=== PATIENT | female | born 1975 | race Caucasian/White ===

== ENCOUNTER 2016-06-13 09:30 | Emergency (ER) | payer MEDICARE, OTHER ==
--- NOTE | 2016-06-13 10:00 | EDM.PDOC ---
ED HPI GENERAL MEDICAL PROBLEM - General Chief Complaint: Behavioral/Psych Stated Complaint: AMBULANCE Time Seen by Provider: 06/13/16 09:39 - History of Present Illness INITIAL COMMENTS - FREE TEXT/NARRATIVE: HISTORY AND PHYSICAL: History of present illness: The patient is a 40-year-old female who is a diabetic and has no provider here locally as she has just moved here from [place] 2 weeks ago and presents via EMS and police escort for suicidal ideation and possible attempted overdose. According to the patient she is completely fine and she only took 2 of her trazodone which she was prescribed by her doctor in [place] so she could go to sleep. She said she didn't sleep much last night and she was tired. She denies any medical complaints such as fever chills cough chest pain shortness of breath abdominal pain vomiting or diarrhea. According to the boyfriend and police reports the patient has been having problems with her estranged and she has been wanting to see her children and was told by her that they did not want to see her and they were not going to come here to see her. According to the boyfriend she has been depressed and angry over the situation and this morning he noted her to have the bottle of trazodone in her hand and trying to consume a bottle. He found multiple pills on the floor and partially chewed and digested pills on the floor. There were no other medications at the scene. The patient will not corroborate the story and says that she does not know why she is here while her boyfriend called the ambulance. According to the boyfriend she specifically stated to him that she was taking the pills to hurt herself. The patient denies this to me but is not very forthcoming with any of her history. Her son is not sure she's been compliant with her diabetic meds Review of systems: As per history of present illness and below otherwise all systems reviewed and negative. Past medical history: As per history of present illness and as reviewed below otherwise noncontributory. Surgical history: As per history of present illness and as reviewed below otherwise noncontributory. Social history: No reported history of drug or alcohol abuse. Family history: As per history of present illness and as reviewed below otherwise noncontributory. Physical exam: General: Well-developed well-nourished female who is nontoxic and is very soft spoken and quiet and not very talkative or verbally corroborative with my exam HEENT: Atraumatic, normocephalic, pupils reactive, negative for conjunctival pallor or scleral icterus, mucous membranes moist, throat clear, neck supple, nontender, trachea midline. Lungs: Clear to auscultation, breath sounds equal bilaterally, chest nontender. Heart: S1S2, regular rhythm in telemetry tachycardic rate on my evaluation, negative for clicks, rubs, or JVD. Abdomen: Soft, nondistended, nontender. Negative for masses or hepatosplenomegaly. Negative for costovertebral tenderness. Pelvis: Stable nontender. Genitourinary: Deferred. Rectal: Deferred. Extremities: Atraumatic, negative for cords or calf pain. Neurovascular unremarkable. No visible evidence of any injuries and full range of motion of all extremities Neuro: Awake, alert, oriented. Cranial nerves II through XII unremarkable. Cerebellum unremarkable. Motor and sensory unremarkable throughout. Exam nonfocal. The patient is exhibiting no signs of tremulousness Psych: Very flat and depressed in fact very soft spoken and not forthcoming with history. Diagnostics: CBC CMP EtOH level UA UCG UDS TSH aspirin and Tylenol levels Accu-Chek Therapeutics: Cipro by mouth 1045: This was discussed with the psychiatrist at [facility], Dr. Fabricio Conley. He accepts the patient for transfer. The case was also discussed with the ER physician at [facility], Dr. Alcantar, who accepts the patient for transfer at 10:[address] Alcantar is aware of the alcohol level and the slight bump in LFTs and I will continue to monitor the other blood work and call him back with any abnormalities. Impression: Suicidal ideation/attempt; symptomatic UTI; positive drug screen for cocaine and marijuana Definitive disposition and diagnosis as appropriate pending reevaluation and review of above. - Related Data Allergies Allergy/AdvReac Type Severity Reaction Status Date / Time No Known Allergies Allergy Verified 07/07/14 15:04 Home Meds: Home Meds traZODone 06/13/16 [History] Social & Family History - Tobacco Use Smoking Status *Q: Former Smoker Years of Tobacco use: 15 - Alcohol Use Days Per Week of Alcohol Use: 0 - Recreational Drug Use Recreational Drug Use: No ED ROS GENERAL - Review of Systems Review Of Systems: ROS reveals no pertinent complaints other than HPI. ED EXAM, GENERAL - Physical Exam Exam: See Below (See dictation) Course - Vital Signs Last Recorded V/S: Last Vital Signs Temp 37.3 C 06/13/16 09:42 Pulse 120 H 06/13/16 10:50 Resp 20 06/13/16 10:50 BP 143/93 H 06/13/16 10:50 Pulse Ox 94 L 06/13/16 10:50 - Orders/Labs/Meds Orders: Active Orders 24 hr Category Date Time Status CULTURE URINE [RM] Stat Lab 06/13/16 11:09 Ordered Ciprofloxacin [Ciprofloxacin HCl] Med 06/13/16 11:09 Once 500 mg PO ONETIME ONE Medication Orders Ciprofloxacin (Ciprofloxacin Hcl) 500 mg PO ONETIME ONE Stop: 06/13/16 11:10 Labs: Laboratory Tests 06/13/16 06/13/16 06/13/16 Range/Units 09:59 10:07 10:07 WBC 7.55 (4.0-11.0) K/uL RBC 4.61 (4.30-5.90) M/uL Hgb 14.3 (12.0-16.0) g/dL Hct 43.3 (36.0-46.0) % MCV 93.9 (80.0-98.0) fL MCH 31.0 (27.0-32.0) pg MCHC 33.0 (31.0-37.0) g/dL RDW Std Deviation 56.5 (28.0-62.0) fl RDW Coeff of Jovan 17 H (11.0-15.0) % Plt Count 98 L (150-400) K/uL MPV 10.10 (7.40-12.00) fL Neut % (Auto) 60.6 (48.0-80.0) % Lymph % (Auto) 29.8 (16.0-40.0) % [place] % (Auto) 8.2 (0.0-15.0) % Eos % (Auto) 1.1 (0.0-7.0) % Baso % (Auto) 0.3 (0.0-1.5) % Neut # 4.6 (1.4-5.7) K/uL Lymph # 2.3 (0.6-2.4) K/uL [place] # 0.6 (0.0-0.8) K/uL Eos # 0.1 (0.0-0.7) K/uL Baso # 0.0 (0.0-0.1) K/uL Nucleated RBC % 0.0 /100WBC Nucleated RBCs # 0 K/uL Sodium 139 (136-146) mmol/L Potassium 4.0 (3.5-5.1) mmol/L Chloride 104 (98-110) mmol/L Carbon Dioxide 21 (21-31) mmol/L BUN 4 L (6.0-23.0) mg/dL Creatinine 0.7 (0.6-1.5) mg/dL Est Cr Clr Drug Dosing 104.93 mL/min Estimated GFR (MDRD) > 60.0 ml/min Glucose 131 H (60-110) mg/dL POC Glucose 135 H (60-110) mg/dL Calcium 8.1 L (8.8-10.8) mg/dL Total Bilirubin 1.9 H (0.1-1.5) mg/dL AST 281 H (5-40) IU/L ALT 140 H (8-54) IU/L Alkaline Phosphatase 138 (40-150) Total Protein 8.1 H (6.0-8.0) g/dL Albumin 3.2 L (3.5-5.0) g/dL Globulin 4.9 H (2.0-3.5) g/dL Albumin/Globulin Ratio 0.7 L (1.3-2.8) TSH 3rd Generation 4.30 (0.47-5.0) uIU/mL Urine Color Urine Appearance Urine pH (5.0-8.0) Ur Specific [place] (1.001-1.035) Urine Protein (NEGATIVE) mg/dL Urine Glucose (UA) (NEGATIVE) mg/dL Urine Ketones (NEGATIVE) mg/dL Urine Occult Blood (NEGATIVE) Urine Nitrite (NEGATIVE) Urine Bilirubin (NEGATIVE) Urine Ictotest Urine Urobilinogen (<2.0) EU/dL Ur Leukocyte Esterase (NEGATIVE) Urine RBC (0-2/HPF) Urine WBC (0-5/HPF) Ur Epithelial Cells (NONE-FEW) Urine Bacteria (NEGATIVE) Urine Mucus (NONE-MOD) Urine HCG, Qual (NEGATIVE) Salicylates < 5.0 (0-20) mg/dL Urine Opiates Screen (NEGATIVE) Ur Oxycodone Screen (NEGATIVE) Urine Methadone Screen (NEGATIVE) Acetaminophen < 3.0 ug/mL Ur Barbiturates Screen (NEGATIVE) Ur Phencyclidine Scrn (NEGATIVE) Ur Amphetamine Screen (NEGATIVE) U Methamphetamines Scrn (NEGATIVE) U Benzodiazepines Scrn (NEGATIVE) U Cocaine Metab Screen (NEGATIVE) U Marijuana (THC) Screen (NEGATIVE) Ethyl Alcohol 77.7 mg/dL 06/13/16 06/13/16 06/13/16 Range/Units 10:43 10:43 10:43 WBC (4.0-11.0) K/uL RBC (4.30-5.90) M/uL Hgb (12.0-16.0) g/dL Hct (36.0-46.0) % MCV (80.0-98.0) fL MCH (27.0-32.0) pg MCHC (31.0-37.0) g/dL RDW Std Deviation (28.0-62.0) fl RDW Coeff of Jovan (11.0-15.0) % Plt Count (150-400) K/uL MPV (7.40-12.00) fL Neut % (Auto) (48.0-80.0) % Lymph % (Auto) (16.0-40.0) % [place] % (Auto) (0.0-15.0) % Eos % (Auto) (0.0-7.0) % Baso % (Auto) (0.0-1.5) % Neut # (1.4-5.7) K/uL Lymph # (0.6-2.4) K/uL [place] # (0.0-0.8) K/uL Eos # (0.0-0.7) K/uL Baso # (0.0-0.1) K/uL Nucleated RBC % /100WBC Nucleated RBCs # K/uL Sodium (136-146) mmol/L Potassium (3.5-5.1) mmol/L Chloride (98-110) mmol/L Carbon Dioxide (21-31) mmol/L BUN (6.0-23.0) mg/dL Creatinine (0.6-1.5) mg/dL Est Cr Clr Drug Dosing mL/min Estimated GFR (MDRD) ml/min Glucose (60-110) mg/dL POC Glucose (60-110) mg/dL Calcium (8.8-10.8) mg/dL Total Bilirubin (0.1-1.5) mg/dL AST (5-40) IU/L ALT (8-54) IU/L Alkaline Phosphatase (40-150) Total Protein (6.0-8.0) g/dL Albumin (3.5-5.0) g/dL Globulin (2.0-3.5) g/dL Albumin/Globulin Ratio (1.3-2.8) TSH 3rd Generation (0.47-5.0) uIU/mL Urine Color YELLOW Urine Appearance SLT CLOUDY Urine pH 6.0 (5.0-8.0) Ur Specific [place] 1.020 (1.001-1.035) Urine Protein NEGATIVE (NEGATIVE) mg/dL Urine Glucose (UA) NEGATIVE (NEGATIVE) mg/dL Urine Ketones NEGATIVE (NEGATIVE) mg/dL Urine Occult Blood NEGATIVE (NEGATIVE) Urine Nitrite POSITIVE H (NEGATIVE) Urine Bilirubin SMALL H (NEGATIVE) Urine Ictotest NEGATIVE Urine Urobilinogen 2.0 H (<2.0) EU/dL Ur Leukocyte Esterase TRACE (NEGATIVE) Urine RBC 1-2 (0-2/HPF) Urine WBC 6-10 (0-5/HPF) Ur Epithelial Cells FEW (NONE-FEW) Urine Bacteria 4+ H (NEGATIVE) Urine Mucus LIGHT (NONE-MOD) Urine HCG, Qual NEGATIVE (NEGATIVE) Salicylates (0-20) mg/dL Urine Opiates Screen NEGATIVE (NEGATIVE) Ur Oxycodone Screen NEGATIVE (NEGATIVE) Urine Methadone Screen NEGATIVE (NEGATIVE) Acetaminophen ug/mL Ur Barbiturates Screen NEGATIVE (NEGATIVE) Ur Phencyclidine Scrn NEGATIVE (NEGATIVE) Ur Amphetamine Screen NEGATIVE (NEGATIVE) U Methamphetamines Scrn NEGATIVE (NEGATIVE) U Benzodiazepines Scrn NEGATIVE (NEGATIVE) U Cocaine Metab Screen POSITIVE (NEGATIVE) U Marijuana (THC) Screen POSITIVE (NEGATIVE) Ethyl Alcohol mg/dL Meds: Medications Generic Name Dose Route Start Last Admin Trade Name Freq PRN Reason Stop Dose Admin Ciprofloxacin 500 mg 06/13/16 11:09 Ciprofloxacin Hcl PO 06/13/16 11:10 ONETIME ONE Departure - Departure Time of Disposition: 11:10 Disposition: DC/Tfer to Psych Hosp/Unit 65 Condition: good Clinical Impression: Suicidal ideation, Suicide attempt, Drug use, Alcohol use UTI (urinary tract infection) Qualifiers: Urinary tract infection type: site unspecified Hematuria presence: without hematuria Qualified Code(s): N39.0 - Urinary tract infection, site not specified Forms: ED Department Discharge - My Orders Last 24 Hours: My Active Orders 06/13/16 11:09 CULTURE URINE [RM] Stat Ciprofloxacin [Ciprofloxacin HCl] 500 mg PO ONETIME ONE - Assessment/Plan Last 24 Hours: My Active Orders 06/13/16 11:09 CULTURE URINE [RM] Stat Ciprofloxacin [Ciprofloxacin HCl] 500 mg PO ONETIME ONE
[2016-06-13 10:44] LABS: CHLORIDE,CL 104 mmol/L (98-110); SODIUM,NA 139 mmol/L (136-146)
[2016-06-13 10:55] LABS: ACETAMINOPHEN < 3.0 ug/mL
[2016-06-13 11:03] VITALS: BP 143/93
[2016-06-13] MEDS ORDERED: Ciprofloxacin 500 MG Tab PO ONE (11:09)
== END 2016-06-13 11:22 ==
LOC: MW.ED 09:30
DX: R45.851 Suicidal ideations (principal); N39.0 Urinary tract infection, site not specified; F19.90 Other psychoactive substance use, unspecified, uncomplicated; Z87.891 Personal history of nicotine dependence; Z79.899 Other long term (current) drug therapy
CPT/HCPCS: 36415; 80053; 80305; 81001; 81025; 82962; 84443; 85025; 87086; 87088; 87186; 99285; A9270; G0480

== ENCOUNTER → 2016-06-22 | Outpatient (CLI) | payer MEDICARE, OTHER | LOC: MW.CHORTHO 13:27 | PROVIDERS: ATTEND Orthopaedic Surgery | DX: M25.561 Pain in right knee (principal); M25.562 Pain in left knee; Z53.9 Procedure and treatment not carried out, unspecified reason ==

== ENCOUNTER → 2016-07-08 | Outpatient (CLI) | payer MEDICARE, OTHER ==
[2016-07-08 12:58] LABS: CHLORIDE,CL 102 mmol/L (98-110); SODIUM,NA 137 mmol/L (136-146)
== END ==
LOC: MERGE 12:10 → MW.CHFP 12:10
PROVIDERS: ATTEND Family Medicine
DX: E11.9 Type 2 diabetes mellitus without complications (principal); B19.20 Unspecified viral hepatitis C without hepatic coma; R82.90 Unspecified abnormal findings in urine; F31.81 Bipolar II disorder
CPT/HCPCS: 36415; 80053; 80061; 81003; 83036; 84443; 85027; 85610; 87086; 87088; 87186; 87522; 87902; 99205

== ENCOUNTER → 2016-07-14 | Outpatient (CLI) | payer OTHER, MEDICARE ==
[2016-07-24 16:04] LABS: HPV 16 Not Detected (NOTDET); HPV 18 Not Detected (NOTDET)
== END ==
LOC: MW.CHOBGYN 13:52
PROVIDERS: ATTEND Nurse Practitioner Women's Health
DX: Z12.4 Encounter for screening for malignant neoplasm of cervix (principal)
CPT/HCPCS: 87624; G0145

== ENCOUNTER → 2016-07-20 | Outpatient (CLI) | payer MEDICARE, OTHER | LOC: MW.CHFP 07-15 08:00 | PROVIDERS: ATTEND Family Medicine | DX: Z31.69 Encounter for other general counseling and advice on procreation (principal) | CPT/HCPCS: 99204 ==

== ENCOUNTER 2016-10-25 17:42 | Emergency (ER) | payer MEDICARE, OTHER ==
[2016-10-25] MEDS ORDERED: Sodium Chloride 0.9% 1,000 ML IV ONE (19:23)
[2016-10-25] MEDS ORDERED: Pantoprazole 40 MG Vial IVPUSH ONE (19:23)
[2016-10-25] MEDS ORDERED: Ketorolac 30 MG/ML SDV IVPUSH ONE (19:23)
[2016-10-25] MEDS ORDERED: Sodium Chloride 0.9% 2.5 ML Syringe FLUSH PRN (19:23)
[2016-10-25] MEDS ORDERED: Sodium Chloride 0.9% 10 ML Syringe FLUSH PRN (19:23)
[2016-10-25] MEDS ORDERED: Ondansetron 4 MG/2 ML SDV IVPUSH ONE (19:23)
--- NOTE | 2016-10-25 19:30 | EDM.PDOC ---
ED HPI GENERAL MEDICAL PROBLEM - General Chief Complaint: Headache Stated Complaint: HEADACHE/ABDOMINAL PAIN Time Seen by Provider: 10/25/16 19:16 - History of Present Illness INITIAL COMMENTS - FREE TEXT/NARRATIVE: HISTORY AND PHYSICAL: History of present illness: The patient is a 41-year-old female who states that she has a history of low platelets and is currently following and our internal medicine clinic and is scheduled to see one of our oncologists and presents with complaints of a right temporal headache that started this morning. The patient states she has a normal day yesterday with the exception that for the last 4-5 days she's had a lot of upper abdominal pain and "acid reflux" and hasn't felt well from that perspective and after she woke up she was having a normal morning and then she started having the bitemporal headache. She is vague about describing the character but says it didn't radiate and it wasn't associated with any visual changes neuro changes nausea or vomiting. She decided to go back to bed and go to sleep and she was able to sleep without difficulty and then woke again and still had the headache. The patient also tells me that last evening she slept without any difficulty and did not wake up with a headache. She currently says the pain is throbbing and there is no neck pain or back pain no chest pain or shortness of breath and no fever. She says she's had chills on and off. She has only taken one dose of Tylenol and that was one hour before coming here. She has had headaches before to my history but she is vague about describing them. As far as the abdominal pain is mostly diffuse and in the upper areas and its acid-like feeling she's had no diarrhea or black or bloody stools. The patient had no urinary complaints no recent trauma and she's had a bilateral tubal ligation. According to the computer she had a scheduled counter today with the oncology group but she says that she did not have an appointment today. She is unclear of why that shows up on her computer. I question the patient on her very tacky mucosa and she says she has not had very much to drink today and she normally doesn't hydrate very well. Patient does have a history of hepatitis C and has a history of psychiatric issues. Patient is currently on her period. Patient has a history of a cholecystectomy Review of systems: As per history of present illness and below otherwise all systems reviewed and negative. Past medical history: As per history of present illness and as reviewed below otherwise noncontributory. Surgical history: As per history of present illness and as reviewed below otherwise noncontributory. Social history: No reported history of drug or alcohol abuse. Family history: As per history of present illness and as reviewed below otherwise noncontributory. Physical exam: Gen.: Well-developed well-nourished female who is nontoxic and non-photophobic. Vital signs of an reviewed by me. HEENT: Atraumatic, normocephalic, pupils reactive, negative for conjunctival pallor or scleral icterus, mucous membranes very tacky, throat clear, neck supple, nontender, trachea midline. There is no evidence of any sinus tenderness cervical adenopathy or nuchal rigidity and TMs are dulled bilaterally. There is no temporal artery tenderness and no discrete tenderness at the TMJ or the temporal scalp area. Lungs: Clear to auscultation, breath sounds equal bilaterally, chest nontender. Heart: S1S2, regular, negative for clicks, rubs, or JVD. Abdomen: Soft, nondistended, nontender. Negative for masses or hepatosplenomegaly. Negative for costovertebral tenderness. Pelvis: Stable nontender. Genitourinary: Deferred. Rectal: Deferred. Extremities: Atraumatic, negative for cords or calf pain. Neurovascular unremarkable. Neuro: Awake, alert, oriented. Cranial nerves II through XII unremarkable. Cerebellum unremarkable. Motor and sensory unremarkable throughout. Exam nonfocal. Diagnostics: CBC CMP INR EtOH level amylase lipase CT scan of the head abdomen and pelvis UA UDS urine culture Therapeutics: IV fluids Toradol Zofran and Protonix Rocephin Please note that I did see this patient in May of this year for an overdose for which she was transferred for psychiatric care and currently she is following with one of our providers for outpatient care. Patient does have a history per the computer of alcohol and drug use. Her blood work that was performed recently from the clinic, just several days ago, indicates a platelet count of 71 and elevated LFTs. I will compare that to today's numbers. Please note that today's liver function tests are actually improved from the ones that were done just several days ago. The platelet count today is 68 which is not significantly different from the 71 several days ago. I will report these changes and improvements to the patient. We are currently awaiting CT scan results. All testing results were discussed with the patient and at bedside. She overall feels much improved. She said she might have gotten dehydrated as she did not drink much fluids all day today except one cup of water at breakfast. Although the CT scan report did show some fluid around the head of the pancreas the patient is not tender in that area more than she is tender in any other area. She is aware that she should maintain a clear liquid diet and follow up with her provider. She is aware of reasons to return to the ED and thing she should watch out for. She is aware that she has a UTI and that I will prescribe antibiotics. We will give her a dose of Rocephin here and prescribed antibiotics for home. I've also stressed need to contact her provider in the clinic as well as continue with her plan to follow-up with hematology for her thrombocytopenia. She is aware that her spleen is enlarged on the CAT scan and cautions for that. Impression: Headache and abdominal pain with a history of thrombocytopenia and History of hepatitis C, improved stable Definitive disposition and diagnosis as appropriate pending reevaluation and review of above. Headache Pain Score (Numeric/FACES): 8 - Related Data Allergies Allergy/AdvReac Type Severity Reaction Status Date / Time codeine Allergy Itching Verified 10/25/16 18:04 Home Meds: Home Meds traZODone 06/13/16 [History] Insulin Aspart [NovoLOG] 10/25/16 [History] Insulin Detemir [Levemir Flextouch] 10/25/16 [History] OXcarbazepine [Oxcarbazepine] 10/25/16 [History] QUEtiapine Fumarate [Seroquel Xr] 300 mg PO 10/25/16 [History] clonazePAM [Clonazepam] 10/25/16 [History] Past Medical History Endocrine/Metabolic History: Reports: Diabetes, Type II Hematologic History: Reports: Other (See Below) Other Hematologic History: Pt reports low white blood cell and platelet count. - Infectious Disease History Infectious Disease History: Reports: Chicken Pox, Hepatitis C - Past Surgical History GI Surgical History: Reports: Cholecystectomy Musculoskeletal Surgical History: Reports: Other (See Below) Social & Family History - Family History Family Medical History: Noncontributory - Tobacco Use Smoking Status *Q: Former Smoker Years of Tobacco use: 15 Packs/Tins Daily: 10 Used Tobacco, but Quit: Yes Month Tobacco Last Used: August - Caffeine Use Caffeine Use: Reports: Coffee - Alcohol Use Days Per Week of Alcohol Use: 0 - Recreational Drug Use Recreational Drug Use: No ED ROS GENERAL - Review of Systems Review Of Systems: ROS reveals no pertinent complaints other than HPI. ED EXAM, GENERAL - Physical Exam Exam: See Below (See dictation) Course - Vital Signs Last Recorded V/S: Last Vital Signs Temp 36.2 C 10/25/16 21:20 Pulse 68 10/25/16 21:20 Resp 16 10/25/16 21:20 BP 92/62 10/25/16 21:20 Pulse Ox 98 10/25/16 21:20 - Orders/Labs/Meds Orders: Active Orders 24 hr Category Date Time Status Abdomen Pelvis w Cont [CT] Stat Exams 10/25/16 19:27 Taken Abdomen Pelvis wo Cont [CT] Stat Exams 10/25/16 19:23 Stop Req Head wo Cont [CT] Stat Exams 10/25/16 19:23 Taken CULTURE URINE [RM] Stat Lab 10/25/16 19:35 Received Sodium Chloride 0.9% [Saline Flush] Med 10/25/16 19:23 Active 10 ml FLUSH ASDIRECTED PRN Sodium Chloride 0.9% [Saline Flush] Med 10/25/16 19:23 Active 2.5 ml FLUSH ASDIRECTED PRN Saline Lock Insert [OM.PC] Stat Oth 10/25/16 19:23 Ordered Medication Orders Sodium Chloride (Saline Flush) 10 ml FLUSH ASDIRECTED PRN PRN Reason: Keep Vein Open Sodium Chloride (Saline Flush) 2.5 ml FLUSH ASDIRECTED PRN PRN Reason: Keep Vein Open Labs: Laboratory Tests 10/25/16 10/25/16 10/25/16 Range/Units 19:35 19:35 19:50 WBC 3.30 L (4.0-11.0) K/uL RBC 3.95 L (4.30-5.90) M/uL Hgb 12.0 (12.0-16.0) g/dL Hct 36.4 (36.0-46.0) % MCV 92.2 (80.0-98.0) fL MCH 30.4 (27.0-32.0) pg MCHC 33.0 (31.0-37.0) g/dL RDW Std Deviation 53.0 (28.0-62.0) fl RDW Coeff of Jovan 16 H (11.0-15.0) % Plt Count 68 L (150-400) K/uL MPV 11.10 (7.40-12.00) fL Neut % (Auto) 48.8 (48.0-80.0) % Lymph % (Auto) 40.0 (16.0-40.0) % Benton % (Auto) 7.6 (0.0-15.0) % Eos % (Auto) 3.3 (0.0-7.0) % Baso % (Auto) 0.3 (0.0-1.5) % Neut # (Auto) 1.6 (1.4-5.7) K/uL Lymph # (Auto) 1.3 (0.6-2.4) K/uL Benton # (Auto) 0.3 (0.0-0.8) K/uL Eos # (Auto) 0.1 (0.0-0.7) K/uL Baso # (Auto) 0.0 (0.0-0.1) K/uL Nucleated RBC % 0.0 /100WBC Nucleated RBCs # 0 K/uL INR (0.86-1.11) Sodium (136-146) mmol/L Potassium (3.5-5.1) mmol/L Chloride (98-110) mmol/L Carbon Dioxide (21-31) mmol/L BUN (6.0-23.0) mg/dL Creatinine (0.6-1.5) mg/dL Est Cr Clr Drug Dosing mL/min Estimated GFR (MDRD) ml/min Glucose (60-110) mg/dL Calcium (8.8-10.8) mg/dL Total Bilirubin (0.1-1.5) mg/dL AST (5-40) IU/L ALT (8-54) IU/L Alkaline Phosphatase (40-150) Total Protein (6.0-8.0) g/dL Albumin (3.5-5.0) g/dL Globulin (2.0-3.5) g/dL Albumin/Globulin Ratio (1.3-2.8) Amylase (10-90) U/L Lipase (7-80) U/L Urine Color YELLOW Urine Appearance SLT CLOUDY Urine pH 6.0 (5.0-8.0) Ur Specific Bronte 1.020 (1.001-1.035) Urine Protein NEGATIVE (NEGATIVE) mg/dL Urine Glucose (UA) NEGATIVE (NEGATIVE) mg/dL Urine Ketones NEGATIVE (NEGATIVE) mg/dL Urine Occult Blood LARGE H (NEGATIVE) Urine Nitrite POSITIVE H (NEGATIVE) Urine Bilirubin MODERATE H (NEGATIVE) Urine Ictotest POSITIVE Urine Urobilinogen 2.0 H (<2.0) EU/dL Ur Leukocyte Esterase NEGATIVE (NEGATIVE) Urine RBC 10-15 (0-2/HPF) Urine WBC 2-3 (0-5/HPF) Ur Epithelial Cells FEW (NONE-FEW) Urine Bacteria 3+ H (NEGATIVE) Urine Opiates Screen NEGATIVE (NEGATIVE) Ur Oxycodone Screen NEGATIVE (NEGATIVE) Urine Methadone Screen NEGATIVE (NEGATIVE) Ur Barbiturates Screen NEGATIVE (NEGATIVE) Ur Phencyclidine Scrn NEGATIVE (NEGATIVE) Ur Amphetamine Screen NEGATIVE (NEGATIVE) U Methamphetamines Scrn NEGATIVE (NEGATIVE) U Benzodiazepines Scrn POSITIVE (NEGATIVE) U Cocaine Metab Screen NEGATIVE (NEGATIVE) U Marijuana (THC) Screen NEGATIVE (NEGATIVE) Ethyl Alcohol mg/dL 10/25/16 10/25/16 Range/Units 19:50 19:50 WBC (4.0-11.0) K/uL RBC (4.30-5.90) M/uL Hgb (12.0-16.0) g/dL Hct (36.0-46.0) % MCV (80.0-98.0) fL MCH (27.0-32.0) pg MCHC (31.0-37.0) g/dL RDW Std Deviation (28.0-62.0) fl RDW Coeff of Jovan (11.0-15.0) % Plt Count (150-400) K/uL MPV (7.40-12.00) fL Neut % (Auto) (48.0-80.0) % Lymph % (Auto) (16.0-40.0) % Benton % (Auto) (0.0-15.0) % Eos % (Auto) (0.0-7.0) % Baso % (Auto) (0.0-1.5) % Neut # (Auto) (1.4-5.7) K/uL Lymph # (Auto) (0.6-2.4) K/uL Benton # (Auto) (0.0-0.8) K/uL Eos # (Auto) (0.0-0.7) K/uL Baso # (Auto) (0.0-0.1) K/uL Nucleated RBC % /100WBC Nucleated RBCs # K/uL INR 1.28 H (0.86-1.11) Sodium 138 (136-146) mmol/L Potassium 4.1 (3.5-5.1) mmol/L Chloride 110 (98-110) mmol/L Carbon Dioxide 24 (21-31) mmol/L BUN 11 (6.0-23.0) mg/dL Creatinine 0.8 (0.6-1.5) mg/dL Est Cr Clr Drug Dosing 90.90 mL/min Estimated GFR (MDRD) > 60.0 ml/min Glucose 122 H (60-110) mg/dL Calcium 7.6 L (8.8-10.8) mg/dL Total Bilirubin 1.2 (0.1-1.5) mg/dL AST 159 H (5-40) IU/L ALT 120 H (8-54) IU/L Alkaline Phosphatase 174 H (40-150) Total Protein 6.7 (6.0-8.0) g/dL Albumin 2.6 L (3.5-5.0) g/dL Globulin 4.1 H (2.0-3.5) g/dL Albumin/Globulin Ratio 0.6 L (1.3-2.8) Amylase 96 H (10-90) U/L Lipase 44 (7-80) U/L Urine Color Urine Appearance Urine pH (5.0-8.0) Ur Specific Bronte (1.001-1.035) Urine Protein (NEGATIVE) mg/dL Urine Glucose (UA) (NEGATIVE) mg/dL Urine Ketones (NEGATIVE) mg/dL Urine Occult Blood (NEGATIVE) Urine Nitrite (NEGATIVE) Urine Bilirubin (NEGATIVE) Urine Ictotest Urine Urobilinogen (<2.0) EU/dL Ur Leukocyte Esterase (NEGATIVE) Urine RBC (0-2/HPF) Urine WBC (0-5/HPF) Ur Epithelial Cells (NONE-FEW) Urine Bacteria (NEGATIVE) Urine Opiates Screen (NEGATIVE) Ur Oxycodone Screen (NEGATIVE) Urine Methadone Screen (NEGATIVE) Ur Barbiturates Screen (NEGATIVE) Ur Phencyclidine Scrn (NEGATIVE) Ur Amphetamine Screen (NEGATIVE) U Methamphetamines Scrn (NEGATIVE) U Benzodiazepines Scrn (NEGATIVE) U Cocaine Metab Screen (NEGATIVE) U Marijuana (THC) Screen (NEGATIVE) Ethyl Alcohol < 10.0 mg/dL Meds: Medications Generic Name Dose Route Start Last Admin Trade Name Freq PRN Reason Stop Dose Admin Sodium Chloride 10 ml 10/25/16 19:23 Saline Flush FLUSH ASDIRECTED PRN Keep Vein Open Sodium Chloride 2.5 ml 10/25/16 19:23 Saline Flush FLUSH ASDIRECTED PRN Keep Vein Open Discontinued Medications Generic Name Dose Route Start Last Admin Trade Name Freq PRN Reason Stop Dose Admin Sodium Chloride 1,000 mls @ 999 mls/hr 10/25/16 19:23 10/25/16 20:01 Normal Saline IV 10/25/16 20:23 999 mls/hr STAT ONE Administration Iopamidol 100 ml 10/25/16 19:58 10/25/16 19:59 Isovue Multipack-370 (76%) IVPUSH 10/25/16 19:59 100 ml ONETIME STA Administration Ketorolac Tromethamine 30 mg 10/25/16 19:23 10/25/16 20:01 Toradol IVPUSH 10/25/16 19:24 30 mg ONETIME ONE Administration Ondansetron HCl 4 mg 10/25/16 19:23 10/25/16 20:01 Zofran IVPUSH 10/25/16 19:24 4 mg ONETIME ONE Administration Pantoprazole Sodium 40 mg 10/25/16 19:23 10/25/16 20:01 Protonix Iv IVPUSH 10/25/16 19:24 40 mg .BOLUS ONE Administration Departure - Departure Time of Disposition: 22:25 Disposition: Home, Self-Care 01 Condition: Good Clinical Impression: Headache Qualifiers: Headache type: unspecified Headache chronicity pattern: acute headache Intractability: not intractable Qualified Code(s): R51 - Headache Abdominal pain Qualifiers: Abdominal location: generalized Qualified Code(s): R10.84 - Generalized abdominal pain UTI (urinary tract infection) Qualifiers: Urinary tract infection type: site unspecified Hematuria presence: without hematuria Qualified Code(s): N39.0 - Urinary tract infection, site not specified - Discharge Information Forms: ED Department Discharge Additional Instructions: The following information is given to patients seen in the emergency department who are being discharged to home. This information is to outline your options for follow-up care. We provide all patients seen in our emergency department with a follow-up referral. The need for follow-up, as well as the timing and circumstances, are variable depending upon the specifics of your emergency department visit. If you don't have a primary care physician on staff, we will provide you with a referral. We always advise you to contact your personal physician following an emergency department visit to inform them of the circumstance of the visit and for follow-up with them and/or the need for any referrals to a consulting specialist. The emergency department will also refer you to a specialist when appropriate. This referral assures that you have the opportunity for followup care with a specialist. All of these measure are taken in an effort to provide you with optimal care, which includes your followup. Under all circumstances we always encourage you to contact your private physician who remains a resource for coordinating your care. When calling for followup care, please make the office aware that this follow-up is from your recent emergency room visit. If for any reason you are refused follow-up, please contact the [facility] emergency department at and ask to speak to the emergency department charge nurse. Primary care- [place] [address] Please contact your clinic physician for follow-up in the next few days and keep any appointments are made with hematology. Rest and push hydration as we discussed. Take antibiotics until they are finished. Please eat a clear liquid diet for the next 24 hours and please return to ER as needed and as discussed. Please avoid any rigorous exercise or activities due to your enlarged spleen. - My Orders Last 24 Hours: My Active Orders 10/25/16 19:23 Abdomen Pelvis wo Cont [CT] Stat Head wo Cont [CT] Stat Sodium Chloride 0.9% [Saline Flush] 10 ml FLUSH ASDIRECTED PRN Sodium Chloride 0.9% [Saline Flush] 2.5 ml FLUSH ASDIRECTED PRN Saline Lock Insert [OM.PC] Stat 10/25/16 19:27 Abdomen Pelvis w Cont [CT] Stat 10/25/16 19:35 CULTURE URINE [RM] Stat - Assessment/Plan Last 24 Hours: My Active Orders 10/25/16 19:23 Abdomen Pelvis wo Cont [CT] Stat Head wo Cont [CT] Stat Sodium Chloride 0.9% [Saline Flush] 10 ml FLUSH ASDIRECTED PRN Sodium Chloride 0.9% [Saline Flush] 2.5 ml FLUSH ASDIRECTED PRN Saline Lock Insert [OM.PC] Stat 10/25/16 19:27 Abdomen Pelvis w Cont [CT] Stat 10/25/16 19:35 CULTURE URINE [RM] Stat
[2016-10-25] MEDS ORDERED: Iopamidol 755 MG/ML 500 ML Multipack Bottle IVPUSH STA (19:58)
[2016-10-25 20:25] LABS: CHLORIDE,CL 110 mmol/L (98-110); SODIUM,NA 138 mmol/L (136-146)
[2016-10-25 21:21] VITALS: BP 92/62
[2016-10-25] MEDS ORDERED: cefTRIAXone 1 GM in Premix Bag 1 BAG IV ONE (22:26)
--- NOTE | 2016-10-26 09:42 | CT ---
EXAM DATE: 10/25/16 PATIENT'S AGE: 41 Patient: RICO RINCON Facility: [place], [place] Site . Site : 1975 Study: CT Head -10/25/2016 9:03:46 PM Ordering Physician: Elvin Nelson Final Report: INDICATION: Pain TECHNIQUE: CT head without contrast. COMPARISON: None FINDINGS: CSF spaces: Within normal limits for age. Brain parenchyma: The doll-white differentiation is normal. No sign of mass, hemorrhage, or midline shift. Skull base and calvarium: The visualized paranasal sinuses and mastoid air cells demonstrate no acute or significant findings. The visualized orbits are grossly unremarkable. No skull fractures. IMPRESSION: Unremarkable noncontrast head CT. Dictated by Alfredito Schuster MD @ 10/25/2016 9:44:27 PM Dictated by: Alfredito Schuster MD @ 10/25/2016 21:44:31 (Electronic Signature) Report Signed by Proxy. DENISE
--- NOTE | 2016-10-26 09:43 | CT ---
EXAM DATE: 10/25/16 PATIENT'S AGE: 41 Patient: RICO RINCON Facility: [place], [place] Site . Site : 1975 Study: CT Abdomen/Pelvis -10/25/2016 9:04:10 PM Ordering Physician: Elvin Nelson Final Report: INDICATION: Pain, nausea and vomiting. History of hepatitis-C. TECHNIQUE: CT abdomen and pelvis acquired with IV contrast. COMPARISON: None FINDINGS: Lower chest: Unremarkable. Liver: Unremarkable. Spleen: Splenomegaly. Pancreas: Small amount of fluid noted adjacent to the head of the pancreas extending into the deng hepatis. Correlate with pancreatitis clinically. Gallbladder and bile ducts: Status post cholecystectomy. Kidneys: Unremarkable. Adrenal glands: Unremarkable. GI tract: Diffuse colonic fecal retention. Appendix is normal. Vascular structures: Unremarkable. Lymph nodes: Unremarkable. Miscellaneous: Unremarkable. No free air or significant free fluid. Pelvic Organs: Unremarkable. Bones: Unremarkable for age. IMPRESSION: Small amount of fluid adjacent to the head of the pancreas extending to the deng hepatis. Correlate with pancreatitis clinically. Status post cholecystectomy. Normal appendix. Splenomegaly. Diffuse colonic fecal retention. Findings discussed 10/25/2016 at 9:[address] Oconnor. Dictated by Alfredito Schuster MD @ 10/25/2016 9:53:18 PM Dictated by: Alfredito Schuster MD @ 10/25/2016 21:53:44 (Electronic Signature) Report Signed by Proxy. [facility]
== END 2016-10-25 23:00 | disposition home or self-care (01) ==
LOC: MW.ED 17:42
DX: N39.0 Urinary tract infection, site not specified (principal); R51 Headache; E11.9 Type 2 diabetes mellitus without complications; Z90.49 Acquired absence of other specified parts of digestive tract; Z88.5 Allergy status to narcotic agent; Z79.4 Long term (current) use of insulin; Z87.891 Personal history of nicotine dependence; Z86.2 Personal history of diseases of the blood and blood-forming organs and certain disorders involving the immune mechanism; Z86.19 Personal history of other infectious and parasitic diseases
CPT/HCPCS: 70450; 74177; 80053; 80305; 81001; 82150; 83690; 85025; 85610; 87086; 87088; 87186; 96361; 96374; 96375; 99284; C9113; G0480; J1885; J2405; J7040; Q9967; 99283

== ENCOUNTER 2016-11-08 22:21 | Inpatient (IN) | payer MEDICARE, OTHER ==
[2016-11-08] MEDS ORDERED: Sodium Chloride 0.9% 10 ML Syringe FLUSH PRN (22:35)
[2016-11-08] MEDS ORDERED: Sodium Chloride 0.9% 2.5 ML Syringe FLUSH PRN (22:35)
--- NOTE | 2016-11-08 22:51 | EDM.PDOC ---
[id number]: SEVERE ABDOMINAL PAIN Time Seen by Provider: 11/08/16 22:35 - History of Present Illness INITIAL COMMENTS - FREE TEXT/NARRATIVE: HISTORY AND PHYSICAL: History of present illness: Patient's 41-year-old female presenting concern of abdominal pain over the last 2-3 days this appears to be postprandial and intermittent per patient is become more consistent and constant today with increased abdominal girth and weight gain per patient she has been seen hematology for low platelets and per possible diagnosis of multiple myeloma she did have a bone marrow biopsy and is awaiting follow-up results and consultation regarding this. There's been no fever no chills she equivocates regarding nauseated but no vomiting no diarrhea. Review of systems: As per history of present illness and below otherwise all systems reviewed and negative. Past medical history: As per history of present illness and as reviewed below otherwise noncontributory. Surgical history: As per history of present illness and as reviewed below otherwise noncontributory. Social history: No reported history of drug or alcohol abuse. Family history: As per history of present illness and as reviewed below otherwise noncontributory. Physical exam: HEENT: Atraumatic, normocephalic, pupils reactive, negative for mild conjunctival pallor and sallow complexion noted mucous membranes moist, throat clear, neck supple, nontender, trachea midline. Lungs: Clear to auscultation, breath sounds equal bilaterally, chest nontender. Heart: S1S2, regular, negative for clicks, rubs, or JVD. Abdomen: Soft, nondistended, mild diffuse tenderness no rebound no guarding this is nonlocalized clinical exam is indicative of likely ascites. Negative for masses or hepatosplenomegaly. Negative for costovertebral tenderness. Pelvis: Stable nontender. Genitourinary: Deferred. Rectal: Deferred. Extremities: Atraumatic, negative for cords or calf pain. Neurovascular unremarkable. Neuro: Awake, alert, oriented. Cranial nerves II through XII unremarkable. Cerebellum unremarkable. Motor and sensory unremarkable throughout. Exam nonfocal. Diagnostics: CBC CMPbnp PT/INR hCG amylase/lipase UDS EtOH chest x-ray EKG UA CT abdomen and pelvis Therapeutics: Normal saline at 125 mL an hour Impression: #1 abdominal pain #2 history of thrombocytopenia #3 history of diabetes #4 history of hypertension Definitive disposition and diagnosis as appropriate pending reevaluation and review of above. upper abdominal area Pain Score (Numeric/FACES): 8 - Related Data Allergies Allergy/AdvReac Type Severity Reaction Status Date / Time codeine Allergy Itching Verified 11/08/16 22:27 Home Meds: Home Meds traZODone 100 mg PO BEDTIME 06/13/16 [History] Insulin Aspart [NovoLOG] 9 units SQ BID@0730,1130 10/25/16 [History] Insulin Detemir [Levemir Flextouch] 30 units SQ QAM 10/25/16 [History] OXcarbazepine [Oxcarbazepine] 300 mg PO BID 10/25/16 [History] QUEtiapine Fumarate [Seroquel Xr] 300 mg PO BEDTIME 10/25/16 [History] clonazePAM [Clonazepam] 1 mg PO BID PRN 10/25/16 [History] Insulin Aspart [NovoLOG] 10 unit SUBCUT ACDINNER 11/09/16 [History] Levothyroxine 25 mcg PO ACBREAKFAST 11/09/16 [History] buPROPion [Wellbutrin XL] 150 mg PO DAILY 11/09/16 [History] Past Medical History Endocrine/Metabolic History: Reports: Diabetes, Type II Hematologic History: Reports: Other (See Below) Other Hematologic History: Pt reports low white blood cell and platelet count. - Infectious Disease History Infectious Disease History: Reports: Chicken Pox, Hepatitis C - Past Surgical History GI Surgical History: Reports: Cholecystectomy Musculoskeletal Surgical History: Reports: Other (See Below) Social & Family History - Family History Family Medical History: Noncontributory - Tobacco Use Smoking Status *Q: Former Smoker Years of Tobacco use: 15 Packs/Tins Daily: 10 Used Tobacco, but Quit: Yes Month Tobacco Last Used: August - Caffeine Use Caffeine Use: Reports: Coffee - Alcohol Use Days Per Week of Alcohol Use: 0 - Recreational Drug Use Recreational Drug Use: No ED ROS GENERAL - Review of Systems Review Of Systems: ROS reveals no pertinent complaints other than HPI. ED EXAM, GENERAL - Physical Exam Exam: See Below (See dictation) Course - Vital Signs Last Recorded V/S: Last Vital Signs Temp 36.8 C 11/09/16 12:01 Pulse 90 11/09/16 12:01 Resp 20 11/09/16 12:01 BP 104/59 L 11/09/16 12:01 Pulse Ox 92 L 11/09/16 12:01 - Orders/Labs/Meds Orders: Active Orders 24 hr Category Date Time Status CULTURE URINE [RM] Stat Lab 11/09/16 00:06 Received Sodium Chloride 0.9% [Saline Flush] Med 11/08/16 22:35 Active 10 ml FLUSH ASDIRECTED PRN Sodium Chloride 0.9% [Saline Flush] Med 11/08/16 22:35 Active 2.5 ml FLUSH ASDIRECTED PRN Saline Lock Insert [OM.PC] Stat Oth 11/08/16 22:35 Ordered Medication Orders Hydromorphone HCl (Dilaudid) 0.5 mg IVPUSH Q3H PRN PRN Reason: Pain Last Admin: 11/09/16 14:33 Dose: 0.5 mg Admin: 11/09/16 11:01 Dose: 0.5 mg Ceftriaxone Sodium/Dextrose 1 (gm/ Premix) 50 mls @ 100 mls/hr IV Q24H JOYCE Sodium Chloride (Normal Saline) 1,000 mls @ 125 mls/hr IV ASDIRECTED JOYCE Last Admin: 11/09/16 10:10 Dose: 125 mls/hr Infusion: 11/09/16 09:55 Dose: 125 mls/hr Admin: 11/09/16 01:55 Dose: 125 mls/hr Pantoprazole Sodium 40 mg/ (Sodium Chloride) 10 mls @ 300 mls/hr IVPUSH Q24H JOYCE Last Admin: 11/09/16 09:33 Dose: 300 mls/hr Insulin Aspart (Novolog) 0 unit SUBCUT Q6H JOYCE PRN Reason: Protocol Last Admin: 11/09/16 12:06 Dose: Lorazepam (Ativan) 1 mg IVPUSH Q12H PRN PRN Reason: Anxiety Ondansetron HCl (Zofran) 8 mg IVPUSH Q8H PRN PRN Reason: Nausea/Vomiting Last Admin: 11/09/16 08:45 Dose: 8 mg Sodium Chloride (Saline Flush) 10 ml FLUSH ASDIRECTED PRN PRN Reason: Keep Vein Open Sodium Chloride (Saline Flush) 2.5 ml FLUSH ASDIRECTED PRN PRN Reason: Keep Vein Open Labs: Laboratory Tests 08/14/17 08/14/17 08/14/17 Range/Units 22:36 22:36 22:36 WBC 5.23 (4.0-11.0) K/uL RBC 4.48 (4.30-5.90) M/uL Hgb 13.8 (12.0-16.0) g/dL Hct 40.7 (36.0-46.0) % MCV 90.8 (80.0-98.0) fL MCH 30.8 (27.0-32.0) pg MCHC 33.9 (31.0-37.0) g/dL RDW Std Deviation 55.2 (28.0-62.0) fl RDW Coeff of Jovan 17 H (11.0-15.0) % Plt Count 84 L (150-400) K/uL MPV 11.00 (7.40-12.00) fL Neut % (Auto) 46.4 L (48.0-80.0) % Lymph % (Auto) 39.2 (16.0-40.0) % Comal % (Auto) 9.2 (0.0-15.0) % Eos % (Auto) 4.4 (0.0-7.0) % Baso % (Auto) 0.8 (0.0-1.5) % Neut # (Auto) 2.4 (1.4-5.7) K/uL Lymph # (Auto) 2.1 (0.6-2.4) K/uL Comal # (Auto) 0.5 (0.0-0.8) K/uL Eos # (Auto) 0.2 (0.0-0.7) K/uL Baso # (Auto) 0.0 (0.0-0.1) K/uL Nucleated RBC % 0.0 /100WBC Nucleated RBCs # 0 K/uL INR 1.17 H (0.86-1.11) Sodium 137 (136-146) mmol/L Potassium 4.3 (3.5-5.1) mmol/L Chloride 106 (98-110) mmol/L Carbon Dioxide 25 (21-31) mmol/L BUN 14 (6.0-23.0) mg/dL Creatinine 0.8 (0.6-1.5) mg/dL Est Cr Clr Drug Dosing 90.66 mL/min Estimated GFR (MDRD) > 60.0 ml/min Glucose 129 H (60-110) mg/dL Calcium 8.6 L (8.8-10.8) mg/dL Total Bilirubin 1.5 (0.1-1.5) mg/dL AST 167 H (5-40) IU/L ALT 120 H (8-54) IU/L Alkaline Phosphatase 204 H (40-150) B-Natriuretic Peptide (<100) PG/ML Total Protein 8.0 (6.0-8.0) g/dL Albumin 3.2 L (3.5-5.0) g/dL Globulin 4.8 H (2.0-3.5) g/dL Albumin/Globulin Ratio 0.7 L (1.3-2.8) Amylase 103 H (10-90) U/L Lipase 34 (7-80) U/L Urine Color Urine Appearance Urine pH (5.0-8.0) Ur Specific Sherman (1.001-1.035) Urine Protein (NEGATIVE) mg/dL Urine Glucose (UA) (NEGATIVE) mg/dL Urine Ketones (NEGATIVE) mg/dL Urine Occult Blood (NEGATIVE) Urine Nitrite (NEGATIVE) Urine Bilirubin (NEGATIVE) Urine Ictotest Urine Urobilinogen (<2.0) EU/dL Ur Leukocyte Esterase (NEGATIVE) Urine RBC (0-2/HPF) Urine WBC (0-5/HPF) Ur Epithelial Cells (NONE-FEW) Urine Bacteria (NEGATIVE) Urine HCG, Qual (NEGATIVE) Urine Opiates Screen (NEGATIVE) Ur Oxycodone Screen (NEGATIVE) Urine Methadone Screen (NEGATIVE) Ur Barbiturates Screen (NEGATIVE) Ur Phencyclidine Scrn (NEGATIVE) Ur Amphetamine Screen (NEGATIVE) U Methamphetamines Scrn (NEGATIVE) U Benzodiazepines Scrn (NEGATIVE) U Cocaine Metab Screen (NEGATIVE) U Marijuana (THC) Screen (NEGATIVE) Ethyl Alcohol < 10.0 mg/dL 11/08/16 11/08/16 11/08/16 Range/Units 22:36 22:39 22:39 WBC (4.0-11.0) K/uL RBC (4.30-5.90) M/uL Hgb (12.0-16.0) g/dL Hct (36.0-46.0) % MCV (80.0-98.0) fL MCH (27.0-32.0) pg MCHC (31.0-37.0) g/dL RDW Std Deviation (28.0-62.0) fl RDW Coeff of Jovan (11.0-15.0) % Plt Count (150-400) K/uL MPV (7.40-12.00) fL Neut % (Auto) (48.0-80.0) % Lymph % (Auto) (16.0-40.0) % [place] % (Auto) (0.0-15.0) % Eos % (Auto) (0.0-7.0) % Baso % (Auto) (0.0-1.5) % Neut # (Auto) (1.4-5.7) K/uL Lymph # (Auto) (0.6-2.4) K/uL Comal # (Auto) (0.0-0.8) K/uL Eos # (Auto) (0.0-0.7) K/uL Baso # (Auto) (0.0-0.1) K/uL Nucleated RBC % /100WBC Nucleated RBCs # K/uL INR (0.86-1.11) Sodium (136-146) mmol/L Potassium (3.5-5.1) mmol/L Chloride (98-110) mmol/L Carbon Dioxide (21-31) mmol/L BUN (6.0-23.0) mg/dL Creatinine (0.6-1.5) mg/dL Est Cr Clr Drug Dosing mL/min Estimated GFR (MDRD) ml/min Glucose (60-110) mg/dL Calcium (8.8-10.8) mg/dL Total Bilirubin (0.1-1.5) mg/dL AST (5-40) IU/L ALT (8-54) IU/L Alkaline Phosphatase (40-150) B-Natriuretic Peptide < 15 (<100) PG/ML Total Protein (6.0-8.0) g/dL Albumin (3.5-5.0) g/dL Globulin (2.0-3.5) g/dL Albumin/Globulin Ratio (1.3-2.8) Amylase (10-90) U/L Lipase (7-80) U/L Urine Color Urine Appearance Urine pH (5.0-8.0) Ur Specific Sherman (1.001-1.035) Urine Protein (NEGATIVE) mg/dL Urine Glucose (UA) (NEGATIVE) mg/dL Urine Ketones (NEGATIVE) mg/dL Urine Occult Blood (NEGATIVE) Urine Nitrite (NEGATIVE) Urine Bilirubin (NEGATIVE) Urine Ictotest Urine Urobilinogen (<2.0) EU/dL Ur Leukocyte Esterase (NEGATIVE) Urine RBC (0-2/HPF) Urine WBC (0-5/HPF) Ur Epithelial Cells (NONE-FEW) Urine Bacteria (NEGATIVE) Urine HCG, Qual NEGATIVE (NEGATIVE) Urine Opiates Screen NEGATIVE (NEGATIVE) Ur Oxycodone Screen NEGATIVE (NEGATIVE) Urine Methadone Screen NEGATIVE (NEGATIVE) Ur Barbiturates Screen NEGATIVE (NEGATIVE) Ur Phencyclidine Scrn NEGATIVE (NEGATIVE) Ur Amphetamine Screen NEGATIVE (NEGATIVE) U Methamphetamines Scrn NEGATIVE (NEGATIVE) U Benzodiazepines Scrn POSITIVE (NEGATIVE) U Cocaine Metab Screen NEGATIVE (NEGATIVE) U Marijuana (THC) Screen NEGATIVE (NEGATIVE) Ethyl Alcohol mg/dL 11/08/16 Range/Units 22:39 WBC (4.0-11.0) K/uL RBC (4.30-5.90) M/uL Hgb (12.0-16.0) g/dL Hct (36.0-46.0) % MCV (80.0-98.0) fL MCH (27.0-32.0) pg MCHC (31.0-37.0) g/dL RDW Std Deviation (28.0-62.0) fl RDW Coeff of Jovan (11.0-15.0) % Plt Count (150-400) K/uL MPV (7.40-12.00) fL Neut % (Auto) (48.0-80.0) % Lymph % (Auto) (16.0-40.0) % [place] % (Auto) (0.0-15.0) % Eos % (Auto) (0.0-7.0) % Baso % (Auto) (0.0-1.5) % Neut # (Auto) (1.4-5.7) K/uL Lymph # (Auto) (0.6-2.4) K/uL Comal # (Auto) (0.0-0.8) K/uL Eos # (Auto) (0.0-0.7) K/uL Baso # (Auto) (0.0-0.1) K/uL Nucleated RBC % /100WBC Nucleated RBCs # K/uL INR (0.86-1.11) Sodium (136-146) mmol/L Potassium (3.5-5.1) mmol/L Chloride (98-110) mmol/L Carbon Dioxide (21-31) mmol/L BUN (6.0-23.0) mg/dL Creatinine (0.6-1.5) mg/dL Est Cr Clr Drug Dosing mL/min Estimated GFR (MDRD) ml/min Glucose (60-110) mg/dL Calcium (8.8-10.8) mg/dL Total Bilirubin (0.1-1.5) mg/dL AST (5-40) IU/L ALT (8-54) IU/L Alkaline Phosphatase (40-150) B-Natriuretic Peptide (<100) PG/ML Total Protein (6.0-8.0) g/dL Albumin (3.5-5.0) g/dL Globulin (2.0-3.5) g/dL Albumin/Globulin Ratio (1.3-2.8) Amylase (10-90) U/L Lipase (7-80) U/L Urine Color DARK YELLOW Urine Appearance SLT CLOUDY Urine pH 6.0 (5.0-8.0) Ur Specific Sherman 1.025 (1.001-1.035) Urine Protein NEGATIVE (NEGATIVE) mg/dL Urine Glucose (UA) NEGATIVE (NEGATIVE) mg/dL Urine Ketones NEGATIVE (NEGATIVE) mg/dL Urine Occult Blood NEGATIVE (NEGATIVE) Urine Nitrite POSITIVE H (NEGATIVE) Urine Bilirubin SMALL H (NEGATIVE) Urine Ictotest NEGATIVE Urine Urobilinogen 1.0 (<2.0) EU/dL Ur Leukocyte Esterase SMALL (NEGATIVE) Urine RBC 0-1 (0-2/HPF) Urine WBC 4-6 (0-5/HPF) Ur Epithelial Cells MANY (NONE-FEW) Urine Bacteria 3+ H (NEGATIVE) Urine HCG, Qual (NEGATIVE) Urine Opiates Screen (NEGATIVE) Ur Oxycodone Screen (NEGATIVE) Urine Methadone Screen (NEGATIVE) Ur Barbiturates Screen (NEGATIVE) Ur Phencyclidine Scrn (NEGATIVE) Ur Amphetamine Screen (NEGATIVE) U Methamphetamines Scrn (NEGATIVE) U Benzodiazepines Scrn (NEGATIVE) U Cocaine Metab Screen (NEGATIVE) U Marijuana (THC) Screen (NEGATIVE) Ethyl Alcohol mg/dL Meds: Medications Generic Name Dose Route Start Last Admin Trade Name Camron PRN Reason Stop Dose Admin Hydromorphone HCl 0.5 mg 11/09/16 10:36 11/09/16 14:33 Dilaudid IVPUSH 0.5 mg Q3H PRN Administration Pain Ceftriaxone Sodium/Dextrose 1 50 mls @ 100 mls/hr 11/10/16 00:00 gm/ Premix IV Q24H JOYCE Sodium Chloride 1,000 mls @ 125 mls/hr 11/09/16 01:45 11/09/16 10:10 Normal Saline IV 125 mls/hr ASDIRECTED JOYCE Administration Pantoprazole Sodium 40 mg/ 10 mls @ 300 mls/hr 11/09/16 09:00 11/09/16 09:33 Sodium Chloride IVPUSH 300 mls/hr Q24H JOY[facility] Administration Insulin Aspart 0 unit 11/09/16 12:00 11/09/16 12:06 Novolog SUBCUT Not Given Q6H JOY[facility] Protocol Lorazepam 1 mg 11/09/16 21:00 Ativan IVPUSH Q12H PRN Anxiety Ondansetron HCl 8 mg 11/09/16 01:46 11/09/16 08:45 Zofran IVPUSH 8 mg Q8H PRN Administration Nausea/Vomiting Sodium Chloride 10 ml 11/08/16 22:35 Saline Flush FLUSH ASDIRECTED PRN Keep Vein Open Sodium Chloride 2.5 ml 11/08/16 22:35 Saline Flush FLUSH ASDIRECTED PRN Keep Vein Open Discontinued Medications Generic Name Dose Route Start Last Admin Trade Name Camron PRN Reason Stop Dose Admin Clonazepam 1 mg 11/09/16 09:00 11/09/16 09:33 Klonopin PO 1 mg BID JOYCE Administration Hydromorphone HCl 0.5 mg 11/09/16 00:20 11/09/16 00:31 Dilaudid IVPUSH 11/09/16 00:21 0.5 mg ONETIME ONE Administration Ceftriaxone Sodium/Dextrose 1 50 mls @ 100 mls/hr 11/09/16 00:04 11/09/16 00: 16 gm/ Premix IV 11/09/16 00:33 100 mls/hr ONETIME ONE Administration Ondansetron HCl 8 mg/ Sodium 54 mls @ 200 mls/hr 11/09/16 04:00 Chloride IV Q8H PRN nausea/vomiting Insulin Aspart 0 unit 11/09/16 07:30 11/09/16 06:38 Novolog SUBCUT Not Given ACBED [facility] Protocol Levothyroxine Sodium 25 mcg 11/10/16 07:30 Levothyroxine PO ACBREAKFAST [facility] Morphine Sulfate 4 mg 11/09/16 01:37 11/09/16 06:10 Morphine IVPUSH 4 mg Q4H PRN Administration Pain (severe 7-10) Ondansetron HCl 4 mg 11/09/16 00:20 11/09/16 00:29 Zofran IVPUSH 11/09/16 00:21 4 mg ONETIME ONE Administration Ondansetron HCl 8 mg 11/09/16 01:45 11/09/16 02:43 Zofran IVPUSH Not Given Q8H [facility] Ondansetron HCl 8 mg 11/09/16 01:50 Zofran IVPUSH Q8H PRN Nausea/Vomiting Oxcarbazepine 150 mg 11/09/16 01:45 11/09/16 09:32 Trileptal PO 150 mg BID JOYCE Administration Oxycodone HCl 5 mg 11/09/16 01:37 11/09/16 08:15 Oxycodone PO 5 mg Q4H PRN Administration Pain Quetiapine Fumarate 1 each 11/09/16 01:45 11/09/16 08:37 [Seroquel Xr] 300 Mg PO Not Given DAILY [facility] Quetiapine Fumarate 1 each 11/09/16 21:00 [Seroquel Xr] 300 Mg PO DAILY [facility] Trazodone HCl 100 mg 11/09/16 01:36 11/09/16 02:16 Trazodone PO 100 mg BEDTIME JOYCE Administration Departure - Departure Time of Disposition: 22:00 Disposition: Admitted As Inpatient 67 Clinical Impression: Abdominal pain, Chronic hepatitis C, UTI (urinary tract infection), uncomplicated - Discharge Information - My Orders Last 24 Hours: My Active Orders 11/08/16 22:35 Sodium Chloride 0.9% [Saline Flush] 10 ml FLUSH ASDIRECTED PRN Sodium Chloride 0.9% [Saline Flush] 2.5 ml FLUSH ASDIRECTED PRN Saline Lock Insert [OM.PC] Stat 11/09/16 00:06 CULTURE URINE [RM] Stat - Assessment/Plan Last 24 Hours: My Active Orders 11/08/16 22:35 Sodium Chloride 0.9% [Saline Flush] 10 ml FLUSH ASDIRECTED PRN Sodium Chloride 0.9% [Saline Flush] 2.5 ml FLUSH ASDIRECTED PRN Saline Lock Insert [OM.PC] Stat 11/09/16 00:06 CULTURE URINE [RM] Stat
[2016-11-08 23:20] LABS: CHLORIDE,CL 106 mmol/L (98-110); SODIUM,NA 137 mmol/L (136-146)
[2016-11-09] MEDS ORDERED: cefTRIAXone 1 GM in Premix Bag 1 BAG IV ONE (00:04)
[2016-11-09] MEDS ORDERED: HYDROmorphone 1 MG/ML Syringe IVPUSH ONE (00:20)
[2016-11-09] MEDS ORDERED: Ondansetron 4 MG/2 ML SDV IVPUSH ONE (00:20)
[2016-11-09] MEDS ORDERED: traZODone 50 MG Tab PO SCH (01:36)
[2016-11-09] MEDS ORDERED: Ondansetron 4 MG/2 ML SDV IVPUSH SCH (01:45)
[2016-11-09] MEDS ORDERED: Ondansetron 4 MG/2 ML SDV IVPUSH PRN ×2 (01:46→01:50)
[2016-11-09] MEDS: Sodium Chloride 0.9% 1,000 ML IV SCH ×3 (01:55→18:21)
[2016-11-09] MEDS: Morphine 4 MG/ML Syringe IVPUSH PRN ×2 (02:05→06:10)
[2016-11-09] MEDS: OXcarbazepine 300 MG Tab PO SCH ×2 (02:17→09:32)
[2016-11-09] MEDS ORDERED: Ondansetron 8 MG in Sodium Chloride 0.9% 50 ML IV PRN (04:00)
[2016-11-09] MEDS: oxyCODONE 5 MG Tab PO PRN ×2 (04:05→08:15)
[2016-11-09] MEDS ORDERED: Insulin Aspart 100 Units/ML 3 ML Pen SUBCUT SCH ×2 (07:30)
[2016-11-09] MEDS: Quetiapine Fumarate [Seroquel Xr] 300 MG PO SCH ×2 (07:59→08:37)
--- NOTE | 2016-11-09 08:44 | PCM.PN ---
- General Info Date of Service: 11/09/16 Admission Dx/Problem (Free Text): Abdominal pain, nausea, vomiting Subjective Update: Reports feeling very distended and bloated, has pain to LUQ and RUQ Functional Status: Reports: Pain Controlled, Tolerating Diet, Ambulating, Urinating - Patient Data Vitals - Most Recent: Last Vital Signs Temp 98.6 F 11/09/16 08:00 Pulse 96 11/09/16 08:00 Resp 20 11/09/16 08:00 BP 118/58 L 11/09/16 08:00 Pulse Ox 93 L 11/09/16 08:00 Weight - Most Recent: 93.9 kg I&O - Last 24 Hours: Intake & Output 11/08/16 11/09/16 11/09/16 22:59 06:59 14:59 Intake Total 40 Output Total 100 Balance -60 Lab Results Last 24 Hours: Laboratory Results - last 24 hr 11/09/16 Range/Units 04:41 WBC 5.51 (4.0-11.0) K/uL RBC 3.81 L (4.30-5.90) M/uL Hgb 11.6 L (12.0-16.0) g/dL Hct 34.8 L (36.0-46.0) % MCV 91.3 (80.0-98.0) fL MCH 30.4 (27.0-32.0) pg MCHC 33.3 (31.0-37.0) g/dL RDW Std Deviation 55.6 (28.0-62.0) fl RDW Coeff of Jovan 17 H (11.0-15.0) % Plt Count 79 L (150-400) K/uL MPV 10.80 (7.40-12.00) fL Neut % (Auto) 42.9 L (48.0-80.0) % Lymph % (Auto) 40.3 H (16.0-40.0) % Simpson % (Auto) 10.0 (0.0-15.0) % Eos % (Auto) 6.4 (0.0-7.0) % Baso % (Auto) 0.4 (0.0-1.5) % Neut # (Auto) 2.4 (1.4-5.7) K/uL Lymph # (Auto) 2.2 (0.6-2.4) K/uL Simpson # (Auto) 0.6 (0.0-0.8) K/uL Eos # (Auto) 0.4 (0.0-0.7) K/uL Baso # (Auto) 0.0 (0.0-0.1) K/uL Nucleated RBC % 1.5 /100WBC Nucleated RBCs # 0 K/uL Med Orders - Current: Current Medications Ceftriaxone Sodium/Dextrose 1 (gm/ Premix) 50 mls @ 100 mls/hr IV Q24H [facility] Sodium Chloride (Normal Saline) 1,000 mls @ 125 mls/hr IV ASDIRECTED [facility] Last Admin: 11/09/16 01:55 Dose: 125 mls/hr Insulin Aspart (Novolog) 0 unit SUBCUT Q6H JOYCE PRN Reason: Protocol Morphine Sulfate (Morphine) 4 mg IVPUSH Q4H PRN PRN Reason: Pain (severe 7-10) Last Admin: 11/09/16 06:10 Dose: 4 mg Ondansetron HCl (Zofran) 8 mg IVPUSH Q8H PRN PRN Reason: Nausea/Vomiting Oxcarbazepine (Trileptal) 150 mg PO BID [facility] Last Admin: 11/09/16 02:17 Dose: 150 mg Quetiapine Fumarate ([Seroquel Xr] 300 Mg) 1 each PO DAILY [facility] Sodium Chloride (Saline Flush) 10 ml FLUSH ASDIRECTED PRN PRN Reason: Keep Vein Open Sodium Chloride (Saline Flush) 2.5 ml FLUSH ASDIRECTED PRN PRN Reason: Keep Vein Open Trazodone HCl (Trazodone) 100 mg PO BEDTIME [facility] Last Admin: 11/09/16 02:16 Dose: 100 mg Discontinued Medications Hydromorphone HCl (Dilaudid) 0.5 mg IVPUSH ONETIME ONE Stop: 11/09/16 00:21 Last Admin: 11/09/16 00:31 Dose: 0.5 mg Ceftriaxone Sodium/Dextrose 1 (gm/ Premix) 50 mls @ 100 mls/hr IV ONETIME ONE Stop: 11/09/16 00:33 Last Admin: 11/09/16 00:16 Dose: 100 mls/hr Ondansetron HCl 8 mg/ Sodium (Chloride) 54 mls @ 200 mls/hr IV Q8H PRN PRN Reason: nausea/vomiting Insulin Aspart (Novolog) 0 unit SUBCUT ACBED [facility] PRN Reason: Protocol Last Admin: 11/09/16 06:38 Dose: Not Given Ondansetron HCl (Zofran) 4 mg IVPUSH ONETIME ONE Stop: 11/09/16 00:21 Last Admin: 11/09/16 00:29 Dose: 4 mg Ondansetron HCl (Zofran) 8 mg IVPUSH Q8H [facility] Last Admin: 11/09/16 02:43 Dose: Not Given Ondansetron HCl (Zofran) 8 mg IVPUSH Q8H PRN PRN Reason: Nausea/Vomiting Oxycodone HCl (Oxycodone) 5 mg PO Q4H PRN PRN Reason: Pain Last Admin: 11/09/16 04:05 Dose: 5 mg Quetiapine Fumarate ([Seroquel Xr] 300 Mg) 1 each PO DAILY [facility] Last Admin: 11/09/16 08:37 Dose: Not Given - My Orders Last 24 Hours: My Active Orders 11/09/16 08:18 Abdomen 2V AP Flat Upright [CR] Urgent 11/09/16 08:41 Antiembolic Devices [RC] PER UNIT ROUTINE Intake and Output [RC] QSHIFT Oxygen Therapy [RC] PRN Up With Assistance [RC] ASDIRECTED VTE/DVT Education [RC] PER UNIT ROUTINE Vital Signs [RC] Q4H Sequential Compression Device [OM.PC] Per Unit Routine Resuscitation Status Routine 11/09/16 09:00 ClonazePAM [KlonoPIN] 1 tab PO BID 11/09/16 12:00 Insulin Aspart [NovoLOG] See Protocol SUBCUT Q6H 11/09/16 21:00 Patient's Own Medication [Ptom] 1 each PO DAILY 11/10/16 05:00 CBC WITH AUTO DIFF [HEME] DAILY CMP [COMPREHENSIVE METABOLIC PN,CMP] [CHEM] DAILY 11/10/16 07:30 Levothyroxine 25 mcg PO ACBREAKFAST 11/11/16 05:00 CBC WITH AUTO DIFF [HEME] DAILY CMP [COMPREHENSIVE METABOLIC PN,CMP] [CHEM] DAILY 11/12/16 05:00 CBC WITH AUTO DIFF [HEME] DAILY CMP [COMPREHENSIVE METABOLIC PN,CMP] [CHEM] DAILY
--- NOTE | 2016-11-09 08:50 | PCM.HP ---
H&P History of Present Illness - General Date of Service: 11/09/16 Admit Problem/Dx: Abdominal pain, nausea, vomiting Source of Information: Patient History Limitations: Reports: No Limitations - History of Present Illness Initial Comments - Free Text/Narative: This 41 year old female with pmh of DM type 2, bipolar, and Hepatitis C presented to the ED last evening with worsening abdominal pain. She reports this pain and heartburn started approximately 3 weeks ago and she has been following with Dr. Keith. She was started on Prilosec, which has helped very little. She reports last night the pain was very sharp to her R and L upper quadrants. She also reports distension and bloating and is unable to wear her same pants. She has been having regular BMs daily, but maybe slightly more loose. She denies any bloody or black stools. She said the pain is worse with eating and then she becomes very nauseated. She denies chest pain, SOB, or palpitations. She denies cough or urinary symptoms. She denies any jaundice. Dr. Keith has set her up with Gi and ID in [place] to discuss treatment for Hepatitis C. She reports being treated approximately 15 years ago, but levels never changed and her doctor told her they would just monitor her labwork. She also recently saw a cardiovascular radiologic technologist in [facility] for thrombocytopenia, she had a bone marrow biopsy and has follow up on for results of this, her mother has history of multiple myeloma. In the ED, thrombocytopenia noted, 84,000 which is near baseline. BMP ok, liver panel is near baseline, AST 167, ALT 120, Alk soam154 Bilirubin 1.5 and INR 1.17. Amylase slightly elevated at 103 and lipase 34. UA revealed +3 bacteria and + nitrite. CT of abdomen/pelvis revealed ill defined low attenuation adajcent to the pancreatic head and periportal/periceliac region, apparent cirrhosis with splenomegaly 16.7 cm craniocaudally, no obstructive uropathy or discrete urolithiasis. CXR negative. Will be admitted for abdominal pain, N/V and UTI. PCP, Dr Keith upper abdominal area Pain Score (Numeric/FACES): 6 - Related Data Allergies/Adverse Reactions: Allergies Allergy/AdvReac Type Severity Reaction Status Date / Time codeine Allergy Itching Verified 11/08/16 22:27 Home Medications: Home Meds traZODone 100 mg PO BEDTIME 06/13/16 [History] Insulin Aspart [NovoLOG] 9 units SQ BID@0730,1130 10/25/16 [History] Insulin Detemir [Levemir Flextouch] 30 units SQ QAM 10/25/16 [History] OXcarbazepine [Oxcarbazepine] 300 mg PO BID 10/25/16 [History] QUEtiapine Fumarate [Seroquel Xr] 300 mg PO BEDTIME 10/25/16 [History] clonazePAM [Clonazepam] 1 mg PO BID PRN 10/25/16 [History] Insulin Aspart [NovoLOG] 10 unit SUBCUT ACDINNER 11/09/16 [History] Levothyroxine 25 mcg PO ACBREAKFAST 11/09/16 [History] buPROPion [Wellbutrin XL] 150 mg PO DAILY 11/09/16 [History] Past Medical History HEENT History: Reports: Impaired Vision Cardiovascular History: Reports: None. Denies: Blood Clots/VTE/DVT, High Cholesterol, Hypertension, NC Respiratory History: Reports: Asthma. Denies: COPD, PE Gastrointestinal History: Reports: Cholelithiasis, Hepatitis, Other (See Below) Other Gastrointestinal History: Gastric Ulcer Genitourinary History: Reports: UTI, Recurrent. 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 - Infectious Disease History Infectious Disease History: Reports: Chicken Pox, Hepatitis C - Past Surgical History Head Surgeries/Procedures: Reports: None HEENT Surgical History: Reports: None Respiratory Surgical History: Reports: None GI Surgical History: Reports: Cholecystectomy Female Surgical History: Reports: Section, Tubal Ligation Endocrine Surgical History: Reports: None Neurological Surgical History: Reports: Lumbar Spine Musculoskeletal Surgical History: Reports: Other (See Below) Other Musculoskeletal Surgeries/Procedures:: screws and pins on right ankle Dermatological Surgical History: Reports: None Social & Family History - Family History Family Medical History: Noncontributory - Tobacco Use Smoking Status *Q: Current Every Day Smoker Years of Tobacco use: 25 Packs/Tins Daily: 0.3 Used Tobacco, but Quit: No Month Tobacco Last Used: August Tobacco Use Comment: Currently attempting to quit, has cut back from 1 ppd to 6 cigarettes a day Second Hand Smoke Exposure: No - Caffeine Use Caffeine Use: Reports: Coffee, Tea Other Caffeine Use: occasional coffee, unsweetened tea - Alcohol Use Days Per Week of Alcohol Use: 0 Alcohol Use Frequency: Socially - Recreational Drug Use Recreational Drug Use: Yes Drug Use in Last 12 Months: Yes Recreational Drug Type: Reports: Cocaine, Marijuana/Hashish Recreational Drug Use Frequency: Socially (Used these 5 mo ago when she was in [place] does not use regularly.) H&P Review of Systems - Review of Systems: Review Of Systems: See Below General: Reports: No Symptoms. Denies: Fever, Malaise, Fatigue HEENT: Reports: No Symptoms. Denies: Ear Pain, Sinus Congestion, Sore Throat, Vertigo Pulmonary: Reports: No Symptoms. Denies: Shortness of Breath, Cough, Sputum Cardiovascular: Reports: No Symptoms, Edema (bilateral lower legs, at baseline) . Denies: Chest Pain, Palpitations Gastrointestinal: Reports: Abdominal Pain (RUQ and LUQ as well as epigastric region), Decreased Appetite, Distension, Nausea, Vomiting, Other (having 'normal " BMs daily). Denies: Black Stool, Bloody Stool, Constipation Genitourinary: Reports: No Symptoms. Denies: Dysuria, Frequency, Burning Musculoskeletal: Reports: No Symptoms Skin: Reports: No Symptoms Psychiatric: Reports: No Symptoms Neurological: Reports: No Symptoms Hematologic/Lymphatic: Reports: No Symptoms Immunologic: Reports: No Symptoms Exam - Exam Exam: See Below - Vital Signs Vital Signs: Last Vital Signs Temp 98.6 F 11/09/16 08:00 Pulse 96 11/09/16 08:00 Resp 20 11/09/16 08:00 BP 118/58 L 11/09/16 08:00 Pulse Ox 93 L 11/09/16 08:00 Weight: 93.9 kg - Exam General: Alert, Oriented, Cooperative HEENT: Conjunctiva Clear, EACs Clear, Mucosa Moist & [place], Nares Patent, Posterior Pharynx Clear, Pupils Equal Neck: Supple, Trachea Midline, Full Range of Motion. No: Lymphadenopathy Lungs: Clear to Auscultation, Normal Respiratory Effort Cardiovascular: Regular Rate, Regular Rhythm, Normal S1, Normal S2 GI/Abdominal Exam: Normal Bowel Sounds, Soft, No Mass, Distended, Tender (RUQ, epigsatric, LUQ), Mass. No: Guarding, Rigid, Rebound Extremities: Normal Range of Motion, Non-Tender, Normal Capillary Refill, Pedal Edema (+1 pitting.). No: Redness Neuro Extensive - Mental Status: Alert, Oriented x3, Normal Mood/Affect, Normal Cognition Neuro Extensive - Motor, Sensory, Reflexes: CN II-XII Intact, Normal Gait, Normal Reflexes Psychiatric: Alert, Normal Affect, Normal Mood - Patient Data Lab Results Last 24 hrs: Laboratory Results - last 24 hr 11/09/16 Range/Units 04:41 WBC 5.51 (4.0-11.0) K/uL RBC 3.81 L (4.30-5.90) M/uL Hgb 11.6 L (12.0-16.0) g/dL Hct 34.8 L (36.0-46.0) % MCV 91.3 (80.0-98.0) fL MCH 30.4 (27.0-32.0) pg MCHC 33.3 (31.0-37.0) g/dL RDW Std Deviation 55.6 (28.0-62.0) fl RDW Coeff of Jovan 17 H (11.0-15.0) % Plt Count 79 L (150-400) K/uL MPV 10.80 (7.40-12.00) fL Neut % (Auto) 42.9 L (48.0-80.0) % Lymph % (Auto) 40.3 H (16.0-40.0) % Davis % (Auto) 10.0 (0.0-15.0) % Eos % (Auto) 6.4 (0.0-7.0) % Baso % (Auto) 0.4 (0.0-1.5) % Neut # (Auto) 2.4 (1.4-5.7) K/uL Lymph # (Auto) 2.2 (0.6-2.4) K/uL Davis # (Auto) 0.6 (0.0-0.8) K/uL Eos # (Auto) 0.4 (0.0-0.7) K/uL Baso # (Auto) 0.0 (0.0-0.1) K/uL Nucleated RBC % 1.5 /100WBC Nucleated RBCs # 0 K/uL Result Diagrams: 11/09/16 04:41 11/08/16 22:36 *Q Meaningful Use (ADM) - VTE *Q VTE Criteria *Q: VTE Pharmacological Contraindications *Q: Risk of Bleeding - Stroke *Q Stroke Criteria *Q: - AMI *Q AMI Criteria *Q: - Problem List (1) Abdominal pain SNOMED Code(s): 44389853 ICD Code: R10.9 - UNSPECIFIED ABDOMINAL PAIN Status: Acute Current Visit : No Qualifiers: Abdominal location: generalized Qualified Code(s): R10.84 - Generalized abdominal pain (2) Nausea & vomiting SNOMED Code(s): 16852475 ICD Code: R11.2 - NAUSEA WITH VOMITING, UNSPECIFIED Status: Acute Current Visit: Yes (3) UTI (urinary tract infection), uncomplicated SNOMED Code(s): 65516453 ICD Code: N39.0 - URINARY TRACT INFECTION, SITE NOT SPECIFIED Status: Acute Current Visit: Yes (4) DM type 2 (diabetes mellitus, type 2) SNOMED Code(s): 67745186 ICD Code: E11.9 - TYPE 2 DIABETES MELLITUS WITHOUT COMPLICATIONS Status: Chronic Current Visit: Yes Qualifiers: Diabetes mellitus complication status: without complication Diabetes mellitus fpc 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 Qualified Code(s): E11.9 - Type 2 diabetes mellitus without complications; Z79.4 - 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 (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) use of insulin (5) Bipolar 2 disorder SNOMED Code(s): 87838117 ICD Code: F31.81 - BIPOLAR II DISORDER Status: Chronic Current Visit: Yes (6) Chronic hepatitis C SNOMED Code(s): 932861392 ICD Code: B18.2 - CHRONIC VIRAL HEPATITIS C Status: Chronic Current Visit : Yes Problem List Initiated/Reviewed/Updated: Yes Orders Last 24hrs: Active Orders 24 hr Category Date Time Status Antiembolic Devices [RC] PER UNIT ROUTINE Care 11/09/16 08:41 Ordered Blood Glucose Check, Bedside [RC] Q6H Care 11/09/16 08:40 Active Intake and Output [RC] QSHIFT Care 11/09/16 08:41 Ordered Oxygen Therapy [RC] PRN Care 11/09/16 08:41 Ordered Up With Assistance [RC] ASDIRECTED Care 11/09/16 08:41 Ordered VTE/DVT Education [RC] PER UNIT ROUTINE Care 11/09/16 08:41 Ordered Vital Signs [RC] Q4H Care 11/09/16 08:41 Ordered Nothing Per Oral Diet [DIET] Diet 11/09/16 Breakfast Active Abdomen 2V AP Flat Upright [CR] Urgent Exams 11/09/16 08:18 Ordered CBC WITH AUTO DIFF [HEME] DAILY Lab 11/10/16 05:00 Ordered CBC WITH AUTO DIFF [HEME] DAILY Lab 11/11/16 05:00 Ordered CBC WITH AUTO DIFF [HEME] DAILY Lab 11/12/16 05:00 Ordered CMP [COMPREHENSIVE METABOLIC PN,CMP] [CHEM] DAILY Lab 11/10/16 05:00 Ordered CMP [COMPREHENSIVE METABOLIC PN,CMP] [CHEM] DAILY Lab 11/11/16 05:00 Ordered CMP [COMPREHENSIVE METABOLIC PN,CMP] [CHEM] DAILY Lab 11/12/16 05:00 Ordered ClonazePAM [KlonoPIN] Med 11/09/16 09:00 Ordered 1 tab PO BID Insulin Aspart [NovoLOG] Med 11/09/16 12:00 Ordered See Protocol SUBCUT Q6H Levothyroxine Med 11/10/16 07:30 Ordered 25 mcg PO ACBREAKFAST Morphine Med 11/09/16 01:37 Active 4 mg IVPUSH Q4H PRN OXcarbazepine [Trileptal] Med 11/09/16 01:45 Active 150 mg PO BID Ondansetron [Zofran] Med 11/09/16 01:46 Active 8 mg IVPUSH Q8H PRN Pantoprazole [ProTONIX IV] 40 mg Med 11/09/16 08:45 Ordered Sodium Chloride 0.9% [Normal Saline] 10 ml IVPUSH Q24H Patient's Own Medication [Ptom] Med 11/09/16 21:00 Ordered 1 each PO DAILY Sodium Chloride 0.9% [Normal Saline] 1,000 ml Med 11/09/16 01:45 Active IV ASDIRECTED cefTRIAXone [Rocephin in Dextrose,Iso-Osm 1 GM/50 ML] 1 Med 11/10/16 00:00 Active gm Premix Bag 1 bag IV Q24H traZODone Med 11/09/16 01:36 Active 100 mg PO BEDTIME Sequential Compression Device [OM.PC] Per Unit Routine Oth 11/09/16 08:41 Ordered Resuscitation Status Routine Resus Stat 11/09/16 08:41 Ordered Medication Orders Clonazepam (Klonopin) 1 mg PO BID [facility] Ceftriaxone Sodium/Dextrose 1 (gm/ Premix) 50 mls @ 100 mls/hr IV Q24H [facility] Sodium Chloride (Normal Saline) 1,000 mls @ 125 mls/hr IV ASDIRECTED [facility] Last Admin: 11/09/16 01:55 Dose: 125 mls/hr Pantoprazole Sodium 40 mg/ (Sodium Chloride) 10 mls @ 300 mls/hr IVPUSH Q24H [facility] Insulin Aspart (Novolog) 0 unit SUBCUT Q6H [facility] PRN Reason: Protocol Levothyroxine Sodium (Levothyroxine) 25 mcg PO ACBREAKFAST [facility] Morphine Sulfate (Morphine) 4 mg IVPUSH Q4H PRN PRN Reason: Pain (severe 7-10) Last Admin: 11/09/16 06:10 Dose: 4 mg Admin: 11/09/16 02:05 Dose: 4 mg Ondansetron HCl (Zofran) 8 mg IVPUSH Q8H PRN PRN Reason: Nausea/Vomiting Oxcarbazepine (Trileptal) 150 mg PO BID [facility] Last Admin: 11/09/16 02:17 Dose: 150 mg Quetiapine Fumarate ([Seroquel Xr] 300 Mg) 1 each PO DAILY [facility] Sodium Chloride (Saline Flush) 10 ml FLUSH ASDIRECTED PRN PRN Reason: Keep Vein Open Sodium Chloride (Saline Flush) 2.5 ml FLUSH ASDIRECTED PRN PRN Reason: Keep Vein Open Trazodone HCl (Trazodone) 100 mg PO BEDTIME [facility] Last Admin: 11/09/16 02:16 Dose: 100 mg Assessment/Plan Comment:: This 41 year old female admitted with abdominal pain, N/V 1. Abdominal pain: Pain continues and feels very boated, is passing gas and had BM yesterday. Will obtain flat and upright this morning to evaluate for possible ileus. Continue bowel rest and IVFs. Would also consider pancreatitis, ileus, and gastroparesis. Will change pain medications to Dilaudid at this time. Continue anti-emetics. Pending Xray results, may need to place NG for gastric decompression. Will also obtain stool studies. 2. DM type 2: NPO for now, will check BS every 6 hours and treated with Novolog per SSI. Hold Levemir for now. 3. Bipolar disorder: Continue home medications, hold if NG needs to be placed. VTE prophylaxis: SCDs only due to thrombocytopenia.
[2016-11-09] MEDS ORDERED: Pantoprazole 40 MG in Sodium Chloride 0.9% 10 ML IVPUSH SCH (09:00)
[2016-11-09] MEDS ORDERED: ClonazePAM 1 MG Tab PO SCH (09:00)
--- NOTE | 2016-11-09 10:42 | CT ---
EXAM DATE: 11/09/16 PATIENT'S AGE: 41 Patient: [place] Facility: [place], [place] Site . Site : 1975 Study: CT Abdomen/Pelvis [id number]/14/2017 11:14:01 PM Ordering Physician: Galileo Daley Final Report: INDICATION: Abdominal pain TECHNIQUE: CT abdomen and pelvis without contrast. COMPARISON: 10/25/2016 FINDINGS: Lower chest: Unremarkable. Liver: Mild hepatic surface nodularity suggestive of cirrhosis. Spleen: Splenomegaly measuring 16.7 centimeters craniocaudally. Pancreas: Ill-defined decreased attenuation again seen adjacent to the pancreatic head as well as in the periceliac and periportal regions. Gallbladder and bile ducts: Cholecystectomy Adrenal glands: Unremarkable. Kidneys: Unremarkable. No kidney or ureteral stones and no hydronephrosis. GI tract: Unremarkable. Appendix is normal. Stool throughout the colon. Vascular structures: Unremarkable. Lymph nodes: Unremarkable. Miscellaneous: Unremarkable. No free air or significant free fluid. Pelvic Organs: Unremarkable. Bones: A lower lumbar laminectomy with regional degenerative changes. IMPRESSION: Ill-defined low-attenuation again seen adjacent to the pancreatic head and periportal/periceliac regions. Correlate with pancreatic enzymes to exclude pancreatitis, although this could represent regional edema of other etiology. Apparent cirrhosis with splenomegaly. No obstructive uropathy or discrete urolithiasis. Dictated by Yovanny Charles MD @ 11/08/2016 11:45:01 PM Dictated by: Yovanny Charles MD @ 11/08/2016 23:45:07 (Electronic Signature) Report Signed by Proxy. [facility] HOSPITALChristel
--- NOTE | 2016-11-09 10:43 | CR ---
EXAM DATE: 11/09/16 PATIENT'S AGE: 41 Patient: [place] Facility: [place], [place] Site . Site : 1975 Study: XRay Chest [id number]/14/2017 11:16:58 PM Ordering Physician: Galileo Daley Final Report: INDICATION: Shortness of breath, chest pain. TECHNIQUE: Chest radiograph 1 view COMPARISON: None FINDINGS: Cardiovascular and mediastinum: The heart silhouette is normal in size and morphology. The mediastinum is normal in appearance. Lungs and pleural spaces: Both lungs are unremarkable in appearance. No sign of pleural effusion seen. No pneumothorax is identified. Bones and soft tissues: No significant findings. IMPRESSION: 1. Negative chest. Dictated by Maximilian Patterson MD @ 11/08/2016 11:27:50 PM Dictated by: Maximilian Patterson MD @ 11/08/2016 23:27:55 (Electronic Signature) Report Signed by Proxy. [facility] HOSPITALChristel
[2016-11-09] MEDS: HYDROmorphone 1 MG/ML Syringe IVPUSH PRN ×4 (11:01→21:17)
--- NOTE | 2016-11-09 12:04 | CR ---
Supine and upright abdomen There is been prior cholecystectomy. There are several segments of minimally prominent small bowel i n the midabdomen suggesting local adynamic ileus. The findings are not unexpected given the appearan ce of the abdominal CT scan dated November 08. Impression: Probable locally dynamic ileus
[2016-11-09] MEDS: Insulin Aspart 100 Units/ML 3 ML Pen SUBCUT SCH ×2 (12:06→17:58)
--- NOTE | 2016-11-09 12:29 | PCM.SN ---
Addendum entered and electronically signed by Lawanda Selby NP 11/09/16 12:49 : Discussed patient with Dr. Velez, at this time will hold off on NG tube. Encourage patient to be up and moving. will re-assess in am. Original Note: - Free Text/Narrative Note: Abdominal xray reveals dynamic ileus with several segments of minimally prominent small bowel in mid abdomen. Will continue NPO status hold all oral medications, and place NG tube for gastric decompression. She is still having nausea and vomiting along with distension. Will contact environmental sampler surgeon for consultation.
--- NOTE | 2016-11-09 14:53 | PCM.SN ---
- Free Text/Narrative Note: pt seen, chart reviewed, adynamic ileus, would try clear liquid diet, and keep K above 3 to avoid chemical ileus; supportive managment; no surg issue, will follow with you
[2016-11-09] MEDS: Ondansetron 4 MG/2 ML SDV IVPUSH PRN ×2 (18:10→22:44)
[2016-11-09] MEDS: Pantoprazole 40 MG in Sodium Chloride 0.9% 10 ML IVPUSH SCH (20:43)
[2016-11-09] MEDS ORDERED: LORazepam 2 MG/ML MDV IVPUSH PRN (21:00)
--- NOTE | 2016-11-09 21:21 | CONS ---
DATE OF CONSULTATION: 11/09/2016 DATE OF : 1975 PRIMARY CARE PHYSICIAN: None PCP Consult was called and the patient was seen shortly after. CONCERNING QUESTION: Ileus. HISTORY OF PRESENT ILLNESS: The patient is a 41-year-old lady admitted with worsening abdominal pain and the patient remarked the pain is diffuse in all 4 quadrants of the abdomen and on the pain scale is 7 to 8. The patient's workup included CAT scan and plain film and diagnosis of adynamic ileus and Surgery was then consulted for further management. The patient remarked that she has stomach issue, whatever it is, for the last 3 weeks and was getting worse for the last 2 days and the patient is seen in the emergency room mainly because of increased pain and also bloating and nausea and she complained that she has emesis, but came up to the floor, but did not vomit. I am not quite sure. I understand that, but this has been going on for 2 days. Denied black tarry stool and denied weight loss without intention. The patient apparently carries a diagnosis of hepatitis C and also have an appointment to be seen in [place] by Infectious Disease as well as GI consult. PAST MEDICAL HISTORY: Significant for diabetes and hypertension, history of pancreatitis. Denied CA or CVA. PAST SURGICAL HISTORY: Has a and gallbladder surgery. SOCIAL HISTORY: The patient is a smoker and some alcohol use per patient. Last bowel movement was yesterday after admission and is well-formed and also the patient passed gas today. ALLERGIES TO MEDICATION: Please refer to nursing for details. PHYSICAL EXAMINATION: GENERAL: The patient has tearful spell, complaining, and feeling miserable during the whole interview with the doctor and complained about nausea, abdominal pain diffuse but is very difficult to get to a particular point of what seemed to bother her. HEENT: Normocephalic, atraumatic. Sclerae anicteric. LUNGS: Clear to auscultation. HEART: Regular rate and rhythm. ABDOMEN: Soft, nondistended. No pulsating, tender midline abdominal structure and decreased bowel sounds, but no high pitch and nontender. LABORATORY DATA: Upon consultation, white count 5, H and H is 12 and 35, and platelet is 79. INR is 1.17. BUN and creatinine are 14 and 0.8. A1c is 5.2 and glucose 129 and total bilirubin is 1.5. AST and ALT of 167 and 120. Alkaline phosphatase is 150. Amylase is 103, lipase is 34, TSH is high at 6.27. UA shows some WBC with bacteria. Hep C viral load is two million on October 29. IMPRESSION AND PLAN: Little bit nausea, little bit abdominal pain, and CAT scan does not show any bowel obstruction. The patient had bowel movement and passing gas. We will recommend to make sure potassium is above 3 to avoid chemical ileus and treat it symptomatically. I think the patient should be able to have clear liquid diet and we will follow the patient with you. I agree with GI consult and Infectious Disease consult at an outside facility. Also CAT scan shows hepatitis, it shows cirrhotic liver and with platelets of 79. We will continue PPI treatment. We will follow the patient. TRUDY / PETER /[id number]
[2016-11-10] MEDS: Insulin Aspart 100 Units/ML 3 ML Pen SUBCUT SCH ×5 (00:36→23:58)
[2016-11-10] MEDS: cefTRIAXone 1 GM in Premix Bag 1 BAG IV SCH ×2 (01:00→23:13)
[2016-11-10] MEDS ORDERED: Acetaminophen 325 MG Tab PO PRN (01:05)
[2016-11-10] MEDS: Sodium Chloride 0.9% 1,000 ML IV SCH ×3 (03:11→22:27)
[2016-11-10] MEDS: HYDROmorphone 1 MG/ML Syringe IVPUSH PRN ×2 (05:05→15:01)
[2016-11-10] MEDS: Ondansetron 4 MG/2 ML SDV IVPUSH PRN (05:06)
[2016-11-10 05:18] LABS: CHLORIDE,CL 108 mmol/L (98-110); SODIUM,NA 136 mmol/L (136-146)
[2016-11-10] MEDS ORDERED: Levothyroxine 25 MCG Tab PO SCH (07:30)
[2016-11-10] MEDS: Pantoprazole 40 MG in Sodium Chloride 0.9% 10 ML IVPUSH SCH ×2 (08:35→21:23)
--- NOTE | 2016-11-10 09:18 | PCM.PN ---
- General Info Date of Service: 11/10/16 Admission Dx/Problem (Free Text): Abdominal pain, nausea, vomiting Subjective Update: Looking a lot better this morning, requesting to have some jello. "I am starving." She continues to have some abdominal pain, but it is improving. She is passing scant flatus, but denies BMs. No longer nauseated. Functional Status: Reports: Ambulating, Urinating - Review of Systems General: Reports: No Symptoms. Denies: Fever HEENT: Reports: No Symptoms. Denies: Sore Throat Pulmonary: Reports: No Symptoms. Denies: Shortness of Breath, Cough, Sputum Cardiovascular: Reports: No Symptoms. Denies: Edema, Lightheadedness Gastrointestinal: Reports: Abdominal Pain (improving to RUQ nad LUQ), Flatus. Denies: Nausea, Vomiting Genitourinary: Reports: No Symptoms. Denies: Dysuria, Frequency, Burning Musculoskeletal: Reports: No Symptoms Skin: Reports: No Symptoms Neurological: Reports: No Symptoms Psychiatric: Reports: No Symptoms - Patient Data Vitals - Most Recent: Last Vital Signs Temp 98.4 F 11/10/16 08:00 Pulse 98 11/10/16 08:00 Resp 22 H 11/10/16 08:00 BP 113/66 11/10/16 08:00 Pulse Ox 92 L 11/10/16 08:41 Weight - Most Recent: 94.347 kg I&O - Last 24 Hours: Intake & Output 11/09/16 11/10/16 11/10/16 22:59 06:59 14:59 Intake Total 2127 1110 Output Total 870 550 Balance 1257 560 Lab Results Last 24 Hours: Laboratory Results - last 24 hr 11/09/16 11/10/16 11/10/16 Range/Units 17:18 00:29 04:30 WBC 4.62 (4.0-11.0) K/uL RBC 3.59 L (4.30-5.90) M/uL Hgb 11.3 L (12.0-16.0) g/dL Hct 33.2 L (36.0-46.0) % MCV 92.5 (80.0-98.0) fL MCH 31.5 (27.0-32.0) pg MCHC 34.0 (31.0-37.0) g/dL RDW Std Deviation 53.7 (28.0-62.0) fl RDW Coeff of Jovan 17 H (11.0-15.0) % Plt Count 63 L (150-400) K/uL MPV 10.70 (7.40-12.00) fL Neut % (Auto) 46.8 L (48.0-80.0) % Lymph % (Auto) 35.9 (16.0-40.0) % Will % (Auto) 8.2 (0.0-15.0) % Eos % (Auto) 8.7 H (0.0-7.0) % Baso % (Auto) 0.4 (0.0-1.5) % Neut # (Auto) 2.2 (1.4-5.7) K/uL Lymph # (Auto) 1.7 (0.6-2.4) K/uL Will # (Auto) 0.4 (0.0-0.8) K/uL Eos # (Auto) 0.4 (0.0-0.7) K/uL Baso # (Auto) 0.0 (0.0-0.1) K/uL Sodium (136-146) mmol/L Potassium (3.5-5.1) mmol/L Chloride (98-110) mmol/L Carbon Dioxide (21-31) mmol/L BUN (6.0-23.0) mg/dL Creatinine (0.6-1.5) mg/dL Est Cr Clr Drug Dosing mL/min Estimated GFR (MDRD) ml/min Glucose (60-110) mg/dL POC Glucose 72 93 (60-110) mg/dL Calcium (8.8-10.8) mg/dL Total Bilirubin (0.1-1.5) mg/dL AST (5-40) IU/L ALT (8-54) IU/L Alkaline Phosphatase (40-150) Total Protein (6.0-8.0) g/dL Albumin (3.5-5.0) g/dL Globulin (2.0-3.5) g/dL Albumin/Globulin Ratio (1.3-2.8) 11/10/16 11/10/16 Range/Units 04:30 05:21 WBC (4.0-11.0) K/uL RBC (4.30-5.90) M/uL Hgb (12.0-16.0) g/dL Hct (36.0-46.0) % MCV (80.0-98.0) fL MCH (27.0-32.0) pg MCHC (31.0-37.0) g/dL RDW Std Deviation (28.0-62.0) fl RDW Coeff of Jovan (11.0-15.0) % Plt Count (150-400) K/uL MPV (7.40-12.00) fL Neut % (Auto) (48.0-80.0) % Lymph % (Auto) (16.0-40.0) % Will % (Auto) (0.0-15.0) % Eos % (Auto) (0.0-7.0) % Baso % (Auto) (0.0-1.5) % Neut # (Auto) (1.4-5.7) K/uL Lymph # (Auto) (0.6-2.4) K/uL Will # (Auto) (0.0-0.8) K/uL Eos # (Auto) (0.0-0.7) K/uL Baso # (Auto) (0.0-0.1) K/uL Sodium 136 (136-146) mmol/L Potassium 3.9 (3.5-5.1) mmol/L Chloride 108 (98-110) mmol/L Carbon Dioxide 23 (21-31) mmol/L BUN 13 (6.0-23.0) mg/dL Creatinine 0.8 (0.6-1.5) mg/dL Est Cr Clr Drug Dosing 90.90 mL/min Estimated GFR (MDRD) > 60.0 ml/min Glucose 78 (60-110) mg/dL POC Glucose 72 (60-110) mg/dL Calcium 7.4 L (8.8-10.8) mg/dL Total Bilirubin 2.2 H (0.1-1.5) mg/dL AST 157 H (5-40) IU/L ALT 103 H (8-54) IU/L Alkaline Phosphatase 102 (40-150) Total Protein 6.3 (6.0-8.0) g/dL Albumin 2.6 L (3.5-5.0) g/dL Globulin 3.7 H (2.0-3.5) g/dL Albumin/Globulin Ratio 0.7 L (1.3-2.8) Med Orders - Current: Current Medications Acetaminophen (Tylenol) 650 mg PO Q6H PRN PRN Reason: pain Last Admin: 11/10/16 01:13 Dose: 650 mg Hydromorphone HCl (Dilaudid) 0.5 mg IVPUSH Q3H PRN PRN Reason: Pain Last Admin: 11/10/16 05:05 Dose: 0.5 mg Ceftriaxone Sodium/Dextrose 1 (gm/ Premix) 50 mls @ 100 mls/hr IV Q24H [facility] Last Admin: 11/10/16 01:00 Dose: 100 mls/hr Sodium Chloride (Normal Saline) 1,000 mls @ 125 mls/hr IV ASDIRECTED [facility] Last Admin: 11/10/16 03:11 Dose: 125 mls/hr Pantoprazole Sodium 40 mg/ (Sodium Chloride) 10 mls @ 300 mls/hr IVPUSH Q12H [facility] Last Admin: 11/10/16 08:35 Dose: 300 mls/hr Insulin Aspart (Novolog) 0 unit SUBCUT Q6H [facility] PRN Reason: Protocol Last Admin: 11/10/16 05:24 Dose: Not Given Lorazepam (Ativan) 1 mg IVPUSH Q12H PRN PRN Reason: Anxiety Ondansetron HCl (Zofran) 4 mg IVPUSH Q4H PRN PRN Reason: Nausea Last Admin: 11/10/16 05:06 Dose: 4 mg Sodium Chloride (Saline Flush) 10 ml FLUSH ASDIRECTED PRN PRN Reason: Keep Vein Open Sodium Chloride (Saline Flush) 2.5 ml FLUSH ASDIRECTED PRN PRN Reason: Keep Vein Open Discontinued Medications Clonazepam (Klonopin) 1 mg PO BID [facility] Last Admin: 11/09/16 09:33 Dose: 1 mg Hydromorphone HCl (Dilaudid) 0.5 mg IVPUSH ONETIME ONE Stop: 11/09/16 00:21 Last Admin: 11/09/16 00:31 Dose: 0.5 mg Ceftriaxone Sodium/Dextrose 1 (gm/ Premix) 50 mls @ 100 mls/hr IV ONETIME ONE Stop: 11/09/16 00:33 Last Admin: 11/09/16 00:16 Dose: 100 mls/hr Ondansetron HCl 8 mg/ Sodium (Chloride) 54 mls @ 200 mls/hr IV Q8H PRN PRN Reason: nausea/vomiting Pantoprazole Sodium 40 mg/ (Sodium Chloride) 10 mls @ 300 mls/hr IVPUSH Q24H [facility] Last Admin: 11/09/16 09:33 Dose: 300 mls/hr Insulin Aspart (Novolog) 0 unit SUBCUT ACBED [facility] PRN Reason: Protocol Last Admin: 11/09/16 06:38 Dose: Not Given Levothyroxine Sodium (Levothyroxine) 25 mcg PO ACBREAKFAST [facility] Morphine Sulfate (Morphine) 4 mg IVPUSH Q4H PRN PRN Reason: Pain (severe 7-10) Last Admin: 11/09/16 06:10 Dose: 4 mg Ondansetron HCl (Zofran) 4 mg IVPUSH ONETIME ONE Stop: 11/09/16 00:21 Last Admin: 11/09/16 00:29 Dose: 4 mg Ondansetron HCl (Zofran) 8 mg IVPUSH Q8H [facility] Last Admin: 11/09/16 02:43 Dose: Not Given Ondansetron HCl (Zofran) 8 mg IVPUSH Q8H PRN PRN Reason: Nausea/Vomiting Last Admin: 11/09/16 08:45 Dose: 8 mg Ondansetron HCl (Zofran) 8 mg IVPUSH Q8H PRN PRN Reason: Nausea/Vomiting Oxcarbazepine (Trileptal) 150 mg PO BID [facility] Last Admin: 11/09/16 09:32 Dose: 150 mg Oxycodone HCl (Oxycodone) 5 mg PO Q4H PRN PRN Reason: Pain Last Admin: 11/09/16 08:15 Dose: 5 mg Quetiapine Fumarate ([Seroquel Xr] 300 Mg) 1 each PO DAILY [facility] Last Admin: 11/09/16 08:37 Dose: Not Given Quetiapine Fumarate ([Seroquel Xr] 300 Mg) 1 each PO DAILY [facility] Trazodone HCl (Trazodone) 100 mg PO BEDTIME [facility] Last Admin: 11/09/16 02:16 Dose: 100 mg - Exam General: Alert, Oriented, Cooperative Neck: Supple Lungs: Clear to Auscultation, Normal Respiratory Effort Cardiovascular: Regular Rate, Regular Rhythm GI/Abdominal Exam: Normal Bowel Sounds, Soft, Distended (but improved from yesterday.), Tender (tenderness improving.), Hepatomegaly, Splenomegaly Extremities: Normal Inspection, Normal Range of Motion, Non-Tender, No Pedal Edema, Normal Capillary Refill Neurological: No New Focal Deficit Psy/Mental Status: Alert, Normal Affect, Normal Mood - Problem List & Annotations (1) Abdominal pain SNOMED Code(s): 64236592 Code(s): R10.9 - UNSPECIFIED ABDOMINAL PAIN Status: Acute Current Visit: No Qualifiers: Abdominal location: generalized Qualified Code(s): R10.84 - Generalized abdominal pain (2) Nausea & vomiting SNOMED Code(s): 83835685 Code(s): R11.2 - NAUSEA WITH VOMITING, UNSPECIFIED Status: Acute Current Visit: Yes (3) UTI (urinary tract infection), uncomplicated SNOMED Code(s): 98238123 Code(s): N39.0 - URINARY TRACT INFECTION, SITE NOT SPECIFIED Status: Acute Current Visit: Yes (4) DM type 2 (diabetes mellitus, type 2) SNOMED Code(s): 07434524 Code(s): E11.9 - TYPE 2 DIABETES MELLITUS WITHOUT COMPLICATIONS Status: Chronic Current Visit: Yes Qualifiers: Diabetes mellitus complication status: without complication Diabetes mellitus usp insulin use: with joint terminal attack controller use Qualified Code(s): E11.9 - Type 2 diabetes mellitus without complications; Z79.4 - MCC (current) use of insulin (5) Bipolar 2 disorder SNOMED Code(s): 25239348 Code(s): F31.81 - BIPOLAR II DISORDER Status: Chronic Current Visit: Yes (6) Chronic hepatitis C SNOMED Code(s): 195829717 Code(s): B18.2 - CHRONIC VIRAL HEPATITIS C Status: Chronic Current Visit : Yes - Problem List Review Problem List Initiated/Reviewed/Updated: Yes - My Orders Last 24 Hours: My Active Orders 11/09/16 12:19 Gastrointestinal Tube Mgmt [RC] ASDIRECTED 11/09/16 13:30 Consult to Physician [CONS] Routine 11/09/16 13:31 Notify Provider Consults [RC] ASDIRECTED 11/09/16 16:27 Ondansetron [Zofran] 4 mg IVPUSH Q4H PRN 11/09/16 21:00 LORazepam [Ativan] 1 mg IVPUSH Q12H PRN Pantoprazole [ProTONIX IV] 40 mg Sodium Chloride 0.9% [Normal Saline] 10 ml IVPUSH Q12H - Plan Plan:: This 41 year old female admitted with abdominal pain, N/V 1. Ileus: Pain and distension improving. Continue dilaudid and anti-emetics. She wants to try CL. Will order this and monitor closely. Strongly encouraged frequent ambulation. 2. UTI: Continue Rocephin. UC pending. 3. DM type 2: check BS every 6 hours and treated with Novolog per SSI. Hold Levemir for now. 4. Bipolar disorder: If tolerates CL diet will restart all medications. Ativan IV ordered due to chronic use of benzodiazepines. 5. Hepatitis C: AST/ALT at baseline, bili elevated to 2.2, still within her baseline, which ranges from 1.5 to 2.4. Has appointment scheduled with GI and ID in [place] next week. VTE prophylaxis: SCDs only due to thrombocytopenia.
--- NOTE | 2016-11-10 09:55 | PCM.SURGPN ---
- General Info Date of Service: 11/10/16 Functional Status: Reports: Pain Controlled - Review of Systems General: Reports: No Symptoms Gastrointestinal: Reports: No Symptoms (passing flatus, started on clear liquid) - Patient Data Vitals - Most Recent: Last Vital Signs Temp 98.4 F 11/10/16 08:00 Pulse 98 11/10/16 08:00 Resp 22 H 11/10/16 08:00 BP 113/66 11/10/16 08:00 Pulse Ox 92 L 11/10/16 08:41 Weight - Most Recent: 208 lb I&O - Last 24 Hours: Intake & Output 11/09/16 11/10/16 11/10/16 22:59 06:59 14:59 Intake Total 2127 1110 Output Total 870 550 Balance 1257 560 Lab Results Last 24 Hrs: Laboratory Results - last 24 hr 11/09/16 11/10/16 11/10/16 Range/Units 17:18 00:29 04:30 WBC 4.62 (4.0-11.0) K/uL RBC 3.59 L (4.30-5.90) M/uL Hgb 11.3 L (12.0-16.0) g/dL Hct 33.2 L (36.0-46.0) % MCV 92.5 (80.0-98.0) fL MCH 31.5 (27.0-32.0) pg MCHC 34.0 (31.0-37.0) g/dL RDW Std Deviation 53.7 (28.0-62.0) fl RDW Coeff of Jovan 17 H (11.0-15.0) % Plt Count 63 L (150-400) K/uL MPV 10.70 (7.40-12.00) fL Neut % (Auto) 46.8 L (48.0-80.0) % Lymph % (Auto) 35.9 (16.0-40.0) % [place] % (Auto) 8.2 (0.0-15.0) % Eos % (Auto) 8.7 H (0.0-7.0) % Baso % (Auto) 0.4 (0.0-1.5) % Neut # (Auto) 2.2 (1.4-5.7) K/uL Lymph # (Auto) 1.7 (0.6-2.4) K/uL [place] # (Auto) 0.4 (0.0-0.8) K/uL Eos # (Auto) 0.4 (0.0-0.7) K/uL Baso # (Auto) 0.0 (0.0-0.1) K/uL Sodium (136-146) mmol/L Potassium (3.5-5.1) mmol/L Chloride (98-110) mmol/L Carbon Dioxide (21-31) mmol/L BUN (6.0-23.0) mg/dL Creatinine (0.6-1.5) mg/dL Est Cr Clr Drug Dosing mL/min Estimated GFR (MDRD) ml/min Glucose (60-110) mg/dL POC Glucose 72 93 (60-110) mg/dL Calcium (8.8-10.8) mg/dL Total Bilirubin (0.1-1.5) mg/dL AST (5-40) IU/L ALT (8-54) IU/L Alkaline Phosphatase (40-150) Total Protein (6.0-8.0) g/dL Albumin (3.5-5.0) g/dL Globulin (2.0-3.5) g/dL Albumin/Globulin Ratio (1.3-2.8) 11/10/16 11/10/16 Range/Units 04:30 05:21 WBC (4.0-11.0) K/uL RBC (4.30-5.90) M/uL Hgb (12.0-16.0) g/dL Hct (36.0-46.0) % MCV (80.0-98.0) fL MCH (27.0-32.0) pg MCHC (31.0-37.0) g/dL RDW Std Deviation (28.0-62.0) fl RDW Coeff of Jovan (11.0-15.0) % Plt Count (150-400) K/uL MPV (7.40-12.00) fL Neut % (Auto) (48.0-80.0) % Lymph % (Auto) (16.0-40.0) % [place] % (Auto) (0.0-15.0) % Eos % (Auto) (0.0-7.0) % Baso % (Auto) (0.0-1.5) % Neut # (Auto) (1.4-5.7) K/uL Lymph # (Auto) (0.6-2.4) K/uL [place] # (Auto) (0.0-0.8) K/uL Eos # (Auto) (0.0-0.7) K/uL Baso # (Auto) (0.0-0.1) K/uL Sodium 136 (136-146) mmol/L Potassium 3.9 (3.5-5.1) mmol/L Chloride 108 (98-110) mmol/L Carbon Dioxide 23 (21-31) mmol/L BUN 13 (6.0-23.0) mg/dL Creatinine 0.8 (0.6-1.5) mg/dL Est Cr Clr Drug Dosing 90.90 mL/min Estimated GFR (MDRD) > 60.0 ml/min Glucose 78 (60-110) mg/dL POC Glucose 72 (60-110) mg/dL Calcium 7.4 L (8.8-10.8) mg/dL Total Bilirubin 2.2 H (0.1-1.5) mg/dL AST 157 H (5-40) IU/L ALT 103 H (8-54) IU/L Alkaline Phosphatase 102 (40-150) Total Protein 6.3 (6.0-8.0) g/dL Albumin 2.6 L (3.5-5.0) g/dL Globulin 3.7 H (2.0-3.5) g/dL Albumin/Globulin Ratio 0.7 L (1.3-2.8) Med Orders - Current: Current Medications Acetaminophen (Tylenol) 650 mg PO Q6H PRN PRN Reason: pain Last Admin: 11/10/16 01:13 Dose: 650 mg Hydromorphone HCl (Dilaudid) 0.5 mg IVPUSH Q3H PRN PRN Reason: Pain Last Admin: 11/10/16 05:05 Dose: 0.5 mg Ceftriaxone Sodium/Dextrose 1 (gm/ Premix) 50 mls @ 100 mls/hr IV Q24H [facility] Last Admin: 11/10/16 01:00 Dose: 100 mls/hr Pantoprazole Sodium 40 mg/ (Sodium Chloride) 10 mls @ 300 mls/hr IVPUSH Q12H [facility] Last Admin: 11/10/16 08:35 Dose: 300 mls/hr Sodium Chloride (Normal Saline) 1,000 mls @ 100 mls/hr IV ASDIRECTED [facility] Insulin Aspart (Novolog) 0 unit SUBCUT Q6H [facility] PRN Reason: Protocol Last Admin: 11/10/16 05:24 Dose: Not Given Lorazepam (Ativan) 1 mg IVPUSH Q12H PRN PRN Reason: Anxiety Ondansetron HCl (Zofran) 4 mg IVPUSH Q4H PRN PRN Reason: Nausea Last Admin: 11/10/16 05:06 Dose: 4 mg Sodium Chloride (Saline Flush) 10 ml FLUSH ASDIRECTED PRN PRN Reason: Keep Vein Open Sodium Chloride (Saline Flush) 2.5 ml FLUSH ASDIRECTED PRN PRN Reason: Keep Vein Open Discontinued Medications Clonazepam (Klonopin) 1 mg PO BID [facility] Last Admin: 11/09/16 09:33 Dose: 1 mg Hydromorphone HCl (Dilaudid) 0.5 mg IVPUSH ONETIME ONE Stop: 11/09/16 00:21 Last Admin: 11/09/16 00:31 Dose: 0.5 mg Ceftriaxone Sodium/Dextrose 1 (gm/ Premix) 50 mls @ 100 mls/hr IV ONETIME ONE Stop: 11/09/16 00:33 Last Admin: 11/09/16 00:16 Dose: 100 mls/hr Sodium Chloride (Normal Saline) 1,000 mls @ 125 mls/hr IV ASDIRECTED [facility] Last Admin: 11/10/16 03:11 Dose: 125 mls/hr Ondansetron HCl 8 mg/ Sodium (Chloride) 54 mls @ 200 mls/hr IV Q8H PRN PRN Reason: nausea/vomiting Pantoprazole Sodium 40 mg/ (Sodium Chloride) 10 mls @ 300 mls/hr IVPUSH Q24H [facility] Last Admin: 11/09/16 09:33 Dose: 300 mls/hr Insulin Aspart (Novolog) 0 unit SUBCUT ACBED [facility] PRN Reason: Protocol Last Admin: 11/09/16 06:38 Dose: Not Given Levothyroxine Sodium (Levothyroxine) 25 mcg PO ACBREAKFAST [facility] Morphine Sulfate (Morphine) 4 mg IVPUSH Q4H PRN PRN Reason: Pain (severe 7-10) Last Admin: 11/09/16 06:10 Dose: 4 mg Ondansetron HCl (Zofran) 4 mg IVPUSH ONETIME ONE Stop: 11/09/16 00:21 Last Admin: 11/09/16 00:29 Dose: 4 mg Ondansetron HCl (Zofran) 8 mg IVPUSH Q8H [facility] Last Admin: 11/09/16 02:43 Dose: Not Given Ondansetron HCl (Zofran) 8 mg IVPUSH Q8H PRN PRN Reason: Nausea/Vomiting Last Admin: 11/09/16 08:45 Dose: 8 mg Ondansetron HCl (Zofran) 8 mg IVPUSH Q8H PRN PRN Reason: Nausea/Vomiting Oxcarbazepine (Trileptal) 150 mg PO BID [facility] Last Admin: 11/09/16 09:32 Dose: 150 mg Oxycodone HCl (Oxycodone) 5 mg PO Q4H PRN PRN Reason: Pain Last Admin: 11/09/16 08:15 Dose: 5 mg Quetiapine Fumarate ([Seroquel Xr] 300 Mg) 1 each PO DAILY [facility] Last Admin: 11/09/16 08:37 Dose: Not Given Quetiapine Fumarate ([Seroquel Xr] 300 Mg) 1 each PO DAILY [facility] Trazodone HCl (Trazodone) 100 mg PO BEDTIME [facility] Last Admin: 11/09/16 02:16 Dose: 100 mg - Exam GI/Abdominal Exam: Normal Bowel Sounds, Soft, Non-Tender - Problem List Review Problem List Initiated/Reviewed/Updated: Yes - My Orders Last 24 Hours: Active Orders 24 hr Category Date Time Status Gastrointestinal Tube Mgmt [RC] ASDIRECTED Care 11/09/16 12:19 Inactive Notify Provider Consults [RC] ASDIRECTED Care 11/09/16 13:31 Active Consult to Physician [CONS] Routine Cons 11/09/16 13:30 Active Clear Liquid Diet [DIET] Diet 11/10/16 Lunch Active Acetaminophen [Tylenol] Med 11/10/16 01:05 Active 650 mg PO Q6H PRN LORazepam [Ativan] Med 11/09/16 21:00 Active 1 mg IVPUSH Q12H PRN Ondansetron [Zofran] Med 11/09/16 16:27 Active 4 mg IVPUSH Q4H PRN Pantoprazole [ProTONIX IV] 40 mg Med 11/09/16 21:00 Active Sodium Chloride 0.9% [Normal Saline] 10 ml IVPUSH Q12H Sodium Chloride 0.9% [Normal Saline] 1,000 ml Med 11/10/16 09:17 Active IV ASDIRECTED Medication Orders Acetaminophen (Tylenol) 650 mg PO Q6H PRN PRN Reason: pain Last Admin: 11/10/16 01:13 Dose: 650 mg Hydromorphone HCl (Dilaudid) 0.5 mg IVPUSH Q3H PRN PRN Reason: Pain Last Admin: 11/10/16 05:05 Dose: 0.5 mg Admin: 11/09/16 21:17 Dose: 0.5 mg Admin: 11/09/16 18:22 Dose: 0.5 mg Admin: 11/09/16 14:33 Dose: 0.5 mg Admin: 11/09/16 11:01 Dose: 0.5 mg Ceftriaxone Sodium/Dextrose 1 (gm/ Premix) 50 mls @ 100 mls/hr IV Q24H [facility] Last Admin: 11/10/16 01:00 Dose: 100 mls/hr Pantoprazole Sodium 40 mg/ (Sodium Chloride) 10 mls @ 300 mls/hr IVPUSH Q12H [facility] Last Admin: 11/10/16 08:35 Dose: 300 mls/hr Infusion: 11/09/16 20:45 Dose: 300 mls/hr Admin: 11/09/16 20:43 Dose: 300 mls/hr Sodium Chloride (Normal Saline) 1,000 mls @ 100 mls/hr IV ASDIRECTED [facility] Insulin Aspart (Novolog) 0 unit SUBCUT Q6H [facility] PRN Reason: Protocol Last Admin: 11/10/16 05:24 Dose: Not Given Admin: 11/10/16 00:36 Dose: Not Given Admin: 11/09/16 17:58 Dose: Not Given Admin: 11/09/16 12:06 Dose: Lorazepam (Ativan) 1 mg IVPUSH Q12H PRN PRN Reason: Anxiety Ondansetron HCl (Zofran) 4 mg IVPUSH Q4H PRN PRN Reason: Nausea Last Admin: 11/10/16 05:06 Dose: 4 mg Admin: 11/09/16 22:44 Dose: 4 mg Admin: 11/09/16 18:10 Dose: 4 mg Sodium Chloride (Saline Flush) 10 ml FLUSH ASDIRECTED PRN PRN Reason: Keep Vein Open Sodium Chloride (Saline Flush) 2.5 ml FLUSH ASDIRECTED PRN PRN Reason: Keep Vein Open - Assessment Assessment (Free Text/Narrative):: resolved ileus, start on clear liquid diet; avss, abd exam benign; no wbc; adv diet slowly; no surg issues; will sign off; recall if questions; tks for the consult and care of this pleasant patient - Plan Plan (Free Text/Narrative):: resolved ileus, start on clear liquid diet; avss, abd exam benign; no wbc; adv diet slowly; no surg issues; will sign off; recall if questions; tks for the consult and care of this pleasant patient
[2016-11-10] MEDS: buPROPion 150 MG Tab.ER PO SCH (15:06)
[2016-11-10] MEDS: OXcarbazepine 300 MG Tab PO SCH ×2 (15:06→21:24)
[2016-11-10] MEDS: Quetiapine Fumarate [Seroquel Xr] 300 MG PO SCH ×2 (19:23→22:32)
[2016-11-10] MEDS ORDERED: traZODone 50 MG Tab PO SCH (21:00)
[2016-11-10] MEDS ORDERED: Quetiapine Fumarate [Seroquel Xr] 300 MG PO SCH (21:00)
[2016-11-10] MEDS: ClonazePAM 1 MG Tab PO SCH (21:23)
[2016-11-11] MEDS: Insulin Aspart 100 Units/ML 3 ML Pen SUBCUT SCH (05:39)
[2016-11-11 05:50] LABS: CHLORIDE,CL 109 mmol/L (98-110); SODIUM,NA 137 mmol/L (136-146)
[2016-11-11] MEDS: OXcarbazepine 300 MG Tab PO SCH (06:45)
[2016-11-11 08:11] VITALS: BP 98/60
[2016-11-11] MEDS ORDERED: Nitrofurantoin Monohydrate/Macrocrystalline 100 MG Cap PO SCH (09:00)
--- NOTE | 2016-11-11 09:02 | CR ---
EXAMINATION: Abdomen HISTORY: Ileus COMPARISON: 11/09/2016 TECHNIQUE: AP and upright views FINDINGS: No free air under the diaphragm. There is a moderate amount of stool and gas throughout th e colon and rectum without evidence of dilated small bowel. Pelvic phlebolith noted. No abnormal lainey cifications project over the kidneys. Cholecystectomy clips are noted. Visualized osseous structures are unremarkable. IMPRESSION: 1. Moderate amount of stool and gas filled the colon without radiographic evidence of a residual ileus.
--- NOTE | 2016-11-11 09:04 | PCM.DCSUM1 ---
Discharge Summary - Hospital Course Brief History: This 41 year old female with pmh of DM type 2, bipolar, and Hepatitis C presented to the ED on 11/09/2016 with worsening abdominal pain. She reported this pain and heartburn started approximately 3 weeks ago and she has been following with Dr. Keith. She was started on Prilosec, which has helped very little. She reported the pain was very sharp to her R and L upper quadrants. She also reported distension and bloating and is unable to wear her same pants. She has been having regular BMs daily, but maybe slightly more loose. She denies any bloody or black stools. She said the pain is worse with eating and then she becomes very nauseated. She denies chest pain, SOB, or palpitations. She denies cough or urinary symptoms. She denied any jaundice. Dr. Keith has set her up with Gi and ID in [place] to discuss treatment for Hepatitis C. She reports being treated approximately 15 years ago, but levels never changed and her doctor told her they would just monitor her labwork. She also recently saw a implement mechanic in [facility] for thrombocytopenia, she had a bone marrow biopsy and has follow up on for results of this, her mother has history of multiple myeloma. In the ED, thrombocytopenia noted, 84, 000 which is near baseline. BMP ok, liver panel is near baseline, AST 167, ALT 120, [id number] Bilirubin 1.5 and INR 1.17. Amylase slightly elevated at 103 and lipase 34. UA revealed +3 bacteria and + nitrite. CT of abdomen/pelvis revealed ill defined low attenuation adajcent to the pancreatic head and periportal/periceliac region, apparent cirrhosis with splenomegaly 16.7 cm craniocaudally, no obstructive uropathy or discrete urolithiasis. CXR negative. Was admitted for abdominal pain, N/V and UTI. PCP, Dr Keith - Discharge Data Discharge Date: 11/11/16 Discharge Disposition: Home, Self-Care 01 Condition: Good - Discharge Diagnosis/Problem(s) (1) Abdominal pain SNOMED Code(s): 08752337 ICD Code: R10.9 - UNSPECIFIED ABDOMINAL PAIN Status: Acute Current Visit : No Qualifiers: Abdominal location: generalized Qualified Code(s): R10.84 - Generalized abdominal pain (2) Nausea & vomiting SNOMED Code(s): 91382562 ICD Code: R11.2 - NAUSEA WITH VOMITING, UNSPECIFIED Status: Acute Current Visit: Yes (3) UTI (urinary tract infection), uncomplicated SNOMED Code(s): 83050585 ICD Code: N39.0 - URINARY TRACT INFECTION, SITE NOT SPECIFIED Status: Acute Current Visit: Yes (4) DM type 2 (diabetes mellitus, type 2) SNOMED Code(s): 18091304 ICD Code: E11.9 - TYPE 2 DIABETES MELLITUS WITHOUT COMPLICATIONS Status: Chronic Current Visit: Yes Qualifiers: Diabetes mellitus complication status: without complication Diabetes mellitus correction insulin use: with correction use Qualified Code(s): E11.9 - Type 2 diabetes mellitus without complications; Z79.4 - MCFP (current) use of insulin (5) Bipolar 2 disorder SNOMED Code(s): 66392336 ICD Code: F31.81 - BIPOLAR II DISORDER Status: Chronic Current Visit: Yes (6) Chronic hepatitis C SNOMED Code(s): 155881819 ICD Code: B18.2 - CHRONIC VIRAL HEPATITIS C Status: Chronic Current Visit : Yes - Patient Summary/Data Consults: Consultations 11/09/16 13:30 Consult to Physician [CONS] Routine - Discharge Plan Prescriptions/Med Rec: Nitrofurantoin Monohyd/M-Cryst [IJD: Nitrofurantoin [place]-MCR] 100 mg PO BID #13 capsule Home Medications: Home Meds traZODone 100 mg PO BEDTIME 06/13/16 [History] Insulin Aspart [NovoLOG] 9 units SQ BID@0730,1130 10/25/16 [History] Insulin Detemir [Levemir Flextouch] 30 units SQ QAM 10/25/16 [History] OXcarbazepine [Oxcarbazepine] 300 mg PO BID 10/25/16 [History] QUEtiapine Fumarate [Seroquel Xr] 300 mg PO BEDTIME 10/25/16 [History] clonazePAM [Clonazepam] 1 mg PO BID PRN 10/25/16 [History] Insulin Aspart [NovoLOG] 10 unit SUBCUT ACDINNER 11/09/16 [History] Levothyroxine 25 mcg PO ACBREAKFAST 11/09/16 [History] buPROPion [Wellbutrin XL] 150 mg PO DAILY 11/09/16 [History] Nitrofurantoin Monohyd/M-Cryst [IJD: Nitrofurantoin [place]-MCR] 100 mg PO BID #13 capsule 11/11/16 [Rx] Patient Handouts: Nitrofurantoin tablets or capsules, Ileus, Urinary Tract Infection, Adult, [id number] Referrals: Philly Keith MD [Primary Care Provider] - 11/19/16 3:15 pm - Discharge Summary/Plan Comment DC Time >30 min.: No Discharge Summary/Plan Comment: Discharge Diagnoses: Ileus likely secondary to mild acute pancreatitis-resolved ESBL E.Coli UTI Hepatitis C Boni Quezada was admitted and treated for abdominal pain, which was secondary to Ileus. This was likely due to mild case of pancreatitis she had a week prior to admission. Lipase and amylase were normal during her stay here. She was treated with bowel rest, IVFs, anti-emetics and analgesia. She slowly improved and today she is feeling much better, still slightly bloated but improved greatly, she is passing gas and had BM this morning. Her repeat abdominal Xray this am, reported no residual ileus and stool noted in colon. She is requesting discharge today. We will advance diet to soft and recommend her staying on soft bland, low fat diet for next few days and slowly progressing to regular low fat. She has appointments next week with GI and ID in [place] to further discuss Hepatitis C treatments. She also was diagnosed with uncomplicated UTI on admission. She has a long history of recurrent UTIs. She was afebrile, asymptomatic and no leukocytosis noted on admission. Urine culture returned today with ESBL E. Coli. Due to uncomplicated nature, will treat with 7 day course of Nitrofurantoin 100 mg BID. I discussed with her and her these results and the need to pass this along to future providers due to the need for specific antibiotic treatment for future UTIs. They verbally agreed and understood this. She is to follow up as scheduled with specialities and to see PCP next week. She is to return to the ED or clinic if concerns should arise. - General Info Date of Service: 11/11/16 Admission Dx/Problem (Free Text: Abdominal pain, nausea, vomiting Subjective Update: Reports feeling better this morning. Pain is better and no further nausea. She continues to pass gas and had BM this morning. Very eager for discharge and at bedside agreeing with this. Denies any chest pain or SOB. Functional Status: Reports: Pain Controlled, Tolerating Diet, Ambulating, Urinating - Review of Systems General: Reports: No Symptoms. Denies: Fever HEENT: Reports: No Symptoms. Denies: Sinus Congestion, Sore Throat, Rhinitis Pulmonary: Reports: No Symptoms. Denies: Shortness of Breath Cardiovascular: Reports: No Symptoms. Denies: Chest Pain, Palpitations Gastrointestinal: Reports: Other (some bloating, but much improved). Denies: Abdominal Pain, Nausea, Vomiting Genitourinary: Reports: No Symptoms. Denies: Dysuria, Frequency, Burning Musculoskeletal: Reports: No Symptoms. Denies: Neck Pain, Shoulder Pain, Arm Pain Skin: Reports: No Symptoms Neurological: Reports: No Symptoms Psychiatric: Reports: Suicidal Ideation - Patient Data Vitals - Most Recent: Last Vital Signs Temp 98.2 F 11/11/16 08:00 Pulse 77 11/11/16 08:00 Resp 17 11/11/16 08:00 BP 98/60 11/11/16 08:00 Pulse Ox 96 11/11/16 08:00 Weight - Most Recent: 96.2 kg I&O - Last 24 hours: Intake & Output 11/10/16 11/11/16 11/11/16 22:59 06:59 14:59 Intake Total 360 400 Output Total 680 1400 Balance -320 -1000 Lab Results - Last 24 hrs: Laboratory Results - last 24 hr 11/10/16 11/10/16 11/10/16 Range/Units 11:30 16:49 23:04 WBC (4.0-11.0) K/uL RBC (4.30-5.90) M/uL Hgb (12.0-16.0) g/dL Hct (36.0-46.0) % MCV (80.0-98.0) fL MCH (27.0-32.0) pg MCHC (31.0-37.0) g/dL RDW Std Deviation (28.0-62.0) fl RDW Coeff of Jovan (11.0-15.0) % Plt Count (150-400) K/uL MPV (7.40-12.00) fL Neut % (Auto) (48.0-80.0) % Lymph % (Auto) (16.0-40.0) % [place] % (Auto) (0.0-15.0) % Eos % (Auto) (0.0-7.0) % Baso % (Auto) (0.0-1.5) % Neut # (Auto) (1.4-5.7) K/uL Lymph # (Auto) (0.6-2.4) K/uL [place] # (Auto) (0.0-0.8) K/uL Eos # (Auto) (0.0-0.7) K/uL Baso # (Auto) (0.0-0.1) K/uL Sodium (136-146) mmol/L Potassium (3.5-5.1) mmol/L Chloride (98-110) mmol/L Carbon Dioxide (21-31) mmol/L BUN (6.0-23.0) mg/dL Creatinine (0.6-1.5) mg/dL Est Cr Clr Drug Dosing mL/min Estimated GFR (MDRD) ml/min Glucose (60-110) mg/dL POC Glucose 75 105 69 (60-110) mg/dL Calcium (8.8-10.8) mg/dL Total Bilirubin (0.1-1.5) mg/dL AST (5-40) IU/L ALT (8-54) IU/L Alkaline Phosphatase (40-150) Total Protein (6.0-8.0) g/dL Albumin (3.5-5.0) g/dL Globulin (2.0-3.5) g/dL Albumin/Globulin Ratio (1.3-2.8) 11/10/16 11/11/16 11/11/16 Range/Units 23:47 05:18 05:18 WBC 3.60 L (4.0-11.0) K/uL RBC 3.52 L (4.30-5.90) M/uL Hgb 11.0 L (12.0-16.0) g/dL Hct 32.1 L (36.0-46.0) % MCV 91.2 (80.0-98.0) fL MCH 31.3 (27.0-32.0) pg MCHC 34.3 (31.0-37.0) g/dL RDW Std Deviation 51.6 (28.0-62.0) fl RDW Coeff of Jovan 16 H (11.0-15.0) % Plt Count 68 L (150-400) K/uL MPV 10.50 (7.40-12.00) fL Neut % (Auto) 42.2 L (48.0-80.0) % Lymph % (Auto) 39.7 (16.0-40.0) % [place] % (Auto) 9.2 (0.0-15.0) % Eos % (Auto) 8.1 H (0.0-7.0) % Baso % (Auto) 0.8 (0.0-1.5) % Neut # (Auto) 1.5 (1.4-5.7) K/uL Lymph # (Auto) 1.4 (0.6-2.4) K/uL [place] # (Auto) 0.3 (0.0-0.8) K/uL Eos # (Auto) 0.3 (0.0-0.7) K/uL Baso # (Auto) 0.0 (0.0-0.1) K/uL Sodium 137 (136-146) mmol/L Potassium 3.7 (3.5-5.1) mmol/L Chloride 109 (98-110) mmol/L Carbon Dioxide 24 (21-31) mmol/L BUN 8 (6.0-23.0) mg/dL Creatinine 0.7 (0.6-1.5) mg/dL Est Cr Clr Drug Dosing 103.89 mL/min Estimated GFR (MDRD) > 60.0 ml/min Glucose 148 H (60-110) mg/dL POC Glucose 138 H (60-110) mg/dL Calcium 7.2 L (8.8-10.8) mg/dL Total Bilirubin 1.2 (0.1-1.5) mg/dL AST 122 H (5-40) IU/L ALT 84 H (8-54) IU/L Alkaline Phosphatase 112 (40-150) Total Protein 5.8 L (6.0-8.0) g/dL Albumin 2.4 L (3.5-5.0) g/dL Globulin 3.4 (2.0-3.5) g/dL Albumin/Globulin Ratio 0.7 L (1.3-2.8) 11/11/16 Range/Units 05:18 WBC (4.0-11.0) K/uL RBC (4.30-5.90) M/uL Hgb (12.0-16.0) g/dL Hct (36.0-46.0) % MCV (80.0-98.0) fL MCH (27.0-32.0) pg MCHC (31.0-37.0) g/dL RDW Std Deviation (28.0-62.0) fl RDW Coeff of Jovan (11.0-15.0) % Plt Count (150-400) K/uL MPV (7.40-12.00) fL Neut % (Auto) (48.0-80.0) % Lymph % (Auto) (16.0-40.0) % [place] % (Auto) (0.0-15.0) % Eos % (Auto) (0.0-7.0) % Baso % (Auto) (0.0-1.5) % Neut # (Auto) (1.4-5.7) K/uL Lymph # (Auto) (0.6-2.4) K/uL [place] # (Auto) (0.0-0.8) K/uL Eos # (Auto) (0.0-0.7) K/uL Baso # (Auto) (0.0-0.1) K/uL Sodium (136-146) mmol/L Potassium (3.5-5.1) mmol/L Chloride (98-110) mmol/L Carbon Dioxide (21-31) mmol/L BUN (6.0-23.0) mg/dL Creatinine (0.6-1.5) mg/dL Est Cr Clr Drug Dosing mL/min Estimated GFR (MDRD) ml/min Glucose (60-110) mg/dL POC Glucose 134 H (60-110) mg/dL Calcium (8.8-10.8) mg/dL Total Bilirubin (0.1-1.5) mg/dL AST (5-40) IU/L ALT (8-54) IU/L Alkaline Phosphatase (40-150) Total Protein (6.0-8.0) g/dL Albumin (3.5-5.0) g/dL Globulin (2.0-3.5) g/dL Albumin/Globulin Ratio (1.3-2.8) Med Orders - Current: Current Medications Acetaminophen (Tylenol) 650 mg PO Q6H PRN PRN Reason: pain Last Admin: 11/10/16 01:13 Dose: 650 mg Bupropion HCl (Wellbutrin Xl) 150 mg PO DAILY [facility] Last Admin: 11/10/16 15:06 Dose: 150 mg Clonazepam (Klonopin) 1 mg PO BID [facility] Last Admin: 11/10/16 21:23 Dose: 1 mg Hydromorphone HCl (Dilaudid) 0.5 mg IVPUSH Q3H PRN PRN Reason: Pain Last Admin: 11/10/16 15:01 Dose: 0.5 mg Pantoprazole Sodium 40 mg/ (Sodium Chloride) 10 mls @ 300 mls/hr IVPUSH Q12H [facility] Last Admin: 11/10/16 21:23 Dose: 300 mls/hr Insulin Aspart (Novolog) 0 unit SUBCUT Q6H JOYCE PRN Reason: Protocol Last Admin: 11/11/16 05:39 Dose: Not Given Lorazepam (Ativan) 1 mg IVPUSH Q12H PRN PRN Reason: Anxiety Last Admin: 11/10/16 17:11 Dose: 1 mg Nitrofurantoin Macrocrystals (Macrobid) 100 mg PO BID [facility] Ondansetron HCl (Zofran) 4 mg IVPUSH Q4H PRN PRN Reason: Nausea Last Admin: 11/10/16 05:06 Dose: 4 mg Oxcarbazepine (Trileptal) 300 mg PO TID [facility] Last Admin: 11/11/16 06:45 Dose: 300 mg Quetiapine Fumarate ([Seroquel Xr] 300 Mg) 1 each PO BEDTIME [facility] Last Admin: 11/10/16 21:24 Dose: Not Given Sodium Chloride (Saline Flush) 10 ml FLUSH ASDIRECTED PRN PRN Reason: Keep Vein Open Sodium Chloride (Saline Flush) 2.5 ml FLUSH ASDIRECTED PRN PRN Reason: Keep Vein Open Trazodone HCl (Trazodone) 100 mg PO BEDTIME [facility] Last Admin: 11/10/16 21:23 Dose: 100 mg Discontinued Medications Clonazepam (Klonopin) 1 mg PO BID [facility] Last Admin: 11/09/16 09:33 Dose: 1 mg Hydromorphone HCl (Dilaudid) 0.5 mg IVPUSH ONETIME ONE Stop: 11/09/16 00:21 Last Admin: 11/09/16 00:31 Dose: 0.5 mg Ceftriaxone Sodium/Dextrose 1 (gm/ Premix) 50 mls @ 100 mls/hr IV ONETIME ONE Stop: 11/09/16 00:33 Last Admin: 11/09/16 00:16 Dose: 100 mls/hr Ceftriaxone Sodium/Dextrose 1 (gm/ Premix) 50 mls @ 100 mls/hr IV Q24H [facility] Last Admin: 11/10/16 23:13 Dose: 100 mls/hr Sodium Chloride (Normal Saline) 1,000 mls @ 125 mls/hr IV ASDIRECTED [facility] Last Admin: 11/10/16 03:11 Dose: 125 mls/hr Ondansetron HCl 8 mg/ Sodium (Chloride) 54 mls @ 200 mls/hr IV Q8H PRN PRN Reason: nausea/vomiting Pantoprazole Sodium 40 mg/ (Sodium Chloride) 10 mls @ 300 mls/hr IVPUSH Q24H [facility] Last Admin: 11/09/16 09:33 Dose: 300 mls/hr Sodium Chloride (Normal Saline) 1,000 mls @ 100 mls/hr IV ASDIRECTED [facility] Last Admin: 11/10/16 22:27 Dose: 100 mls/hr Insulin Aspart (Novolog) 0 unit SUBCUT ACBED [facility] PRN Reason: Protocol Last Admin: 11/09/16 06:38 Dose: Not Given Levothyroxine Sodium (Levothyroxine) 25 mcg PO ACBREAKFAST [facility] Morphine Sulfate (Morphine) 4 mg IVPUSH Q4H PRN PRN Reason: Pain (severe 7-10) Last Admin: 11/09/16 06:10 Dose: 4 mg Ondansetron HCl (Zofran) 4 mg IVPUSH ONETIME ONE Stop: 11/09/16 00:21 Last Admin: 11/09/16 00:29 Dose: 4 mg Ondansetron HCl (Zofran) 8 mg IVPUSH Q8H [facility] Last Admin: 11/09/16 02:43 Dose: Not Given Ondansetron HCl (Zofran) 8 mg IVPUSH Q8H PRN PRN Reason: Nausea/Vomiting Last Admin: 11/09/16 08:45 Dose: 8 mg Ondansetron HCl (Zofran) 8 mg IVPUSH Q8H PRN PRN Reason: Nausea/Vomiting Oxcarbazepine (Trileptal) 150 mg PO BID [facility] Last Admin: 11/09/16 09:32 Dose: 150 mg Oxycodone HCl (Oxycodone) 5 mg PO Q4H PRN PRN Reason: Pain Last Admin: 11/09/16 08:15 Dose: 5 mg Quetiapine Fumarate ([Seroquel Xr] 300 Mg) 1 each PO DAILY [facility] Last Admin: 11/09/16 08:37 Dose: Not Given Quetiapine Fumarate ([Seroquel Xr] 300 Mg) 1 each PO DAILY [facility] Last Admin: 11/10/16 22:32 Dose: Not Given Trazodone HCl (Trazodone) 100 mg PO BEDTIME [facility] Last Admin: 11/09/16 02:16 Dose: 100 mg - Exam General: Reports: Alert, Oriented, Cooperative, No Acute Distress Lungs: Reports: Clear to Auscultation, Normal Respiratory Effort Cardiovascular: Reports: Regular Rate, Regular Rhythm GI/Abdominal Exam: Normal Bowel Sounds, Soft, Distended (improved greatly since admission), Hepatomegaly, Splenomegaly Extremities: Non-Tender, Pedal Edema (trace to +1 pedal and lower leg edema.) Neurological: Reports: No New Focal Deficit Psy/Mental Status: Reports: Alert, Normal Affect, Normal Mood *Q Meaningful Use (DIS) - VTE *Q VTE Criteria *Q: VTE Pharmacological Contraindications *Q: Risk of Bleeding - Stroke *Q Stroke Criteria *Q: - AMI *Q AMI Criteria *Q:
[2016-11-11] MEDS: ClonazePAM 1 MG Tab PO SCH (09:12)
[2016-11-11] MEDS: buPROPion 150 MG Tab.ER PO SCH (09:13)
[2016-11-11] MEDS: Pantoprazole 40 MG in Sodium Chloride 0.9% 10 ML IVPUSH SCH (09:14)
== END 2016-11-11 09:50 | disposition home or self-care (01) | DRG 388 ==
LOC: MW.ED 22:21 → MW.MS 11-09 00:08 → OBSVTOIN 11-09 12:14 → MW.MS 11-09 15:37
PROVIDERS: ADMIT Internal Medicine; ATTEND Internal Medicine
DX: K56.7 Ileus, unspecified (principal); K85.90 Acute pancreatitis without necrosis or infection, unspecified; R10.9 Unspecified abdominal pain; F31.81 Bipolar II disorder; N39.0 Urinary tract infection, site not specified; R10.84 Generalized abdominal pain; B96.20 Unspecified Escherichia coli [E. coli] as the cause of diseases classified elsewhere; B18.2 Chronic viral hepatitis C; R11.2 Nausea with vomiting, unspecified; E03.9 Hypothyroidism, unspecified; F17.200 Nicotine dependence, unspecified, uncomplicated; Z79.4 Long term (current) use of insulin; E11.9 Type 2 diabetes mellitus without complications; I10 Essential (primary) hypertension; Z87.891 Personal history of nicotine dependence; Z79.899 Other long term (current) drug therapy
CPT/HCPCS: 36415 ×2; 71010; 74020; 74176; 80053; 80305; 81001; 81025; 82150; 82962 ×3; 83690; 83880; 85025 ×2; 85610; 87086; 87088; 87186; 93005; 96365; 96375; 99285; A9270 ×6; C9113; G0480; J0696; J1170 ×2; J2270 ×2; J2405 ×2; J7040 ×2; 99283; J2060

== ENCOUNTER 2016-12-03 15:49 | Emergency (ER) | payer MEDICARE, OTHER ==
[2016-12-03] MEDS ORDERED: Sodium Chloride 0.9% 1,000 ML IV ONE (16:16)
[2016-12-03] MEDS ORDERED: HYDROmorphone 1 MG/ML Syringe IVPUSH ONE (16:16)
[2016-12-03] MEDS ORDERED: Ondansetron 4 MG/2 ML SDV IVPUSH ONE (16:16)
[2016-12-03] MEDS ORDERED: Ketorolac 30 MG/ML SDV IVPUSH ONE (16:16)
--- NOTE | 2016-12-03 16:21 | EDM.PDOC ---
ED HPI GENERAL MEDICAL PROBLEM - General Chief Complaint: Abdominal Pain Stated Complaint: ARIEL Time Seen by Provider: 12/03/16 16:10 Source of Information: Reports: Patient History Limitations: Reports: No Limitations - History of Present Illness INITIAL COMMENTS - FREE TEXT/NARRATIVE: History of present illness: [41-year-old female comes in complaining of abdominal pain indicates that she has some nature of hepatitis C and she feels that her liver is causing her to be quite painful and nauseated. Patient indicates she has extensive workup scheduled and they feel she might have advanced liver disease but she is uncertain at her of her staging at this juncture] Review of systems: As per history of present illness and below otherwise all systems reviewed and negative. Past medical history: As per history of present illness and as reviewed below otherwise noncontributory. Surgical history: As per history of present illness and as reviewed below otherwise noncontributory. Social history: No reported history of drug or alcohol abuse. Family history: As per history of present illness and as reviewed below otherwise noncontributory. Physical exam: HEENT: Atraumatic, normocephalic, pupils reactive, negative for conjunctival pallor or scleral icterus, mucous membranes moist, throat clear, neck supple, nontender, trachea midline. Lungs: Clear to auscultation, breath sounds equal bilaterally, chest nontender. Heart: S1S2, regular, negative for clicks, rubs, or JVD. Abdomen: Firm and distended with diffuse tenderness radiating from the RUQ . Negative for masses but + for hepatosplenomegaly. Negative for costovertebral tenderness. Pelvis: Stable nontender. Genitourinary: Deferred. Rectal: Deferred. Extremities: Atraumatic, negative for cords or calf pain. Neurovascular unremarkable. Neuro: Awake, alert, oriented. Cranial nerves II through XII unremarkable. Cerebellum unremarkable. Motor and sensory unremarkable throughout. Exam nonfocal. Patient has an appointment for ultrasound of gallbladder here as well as a biopsy equivalent exam in [place] next week. Diagnostics: [CBC, CMP, amylase, lipase, UA and hCG] Therapeutics: [IV fluid, hydromorphone, Zofran] Impression: [#1 abdominal pain #2 nausea #3 cirrhosis] Plan: [Zofran, Compazine, tramadol] Definitive disposition and diagnosis as appropriate pending reevaluation and review of above. abdomen Pain Score (Numeric/FACES): 7 - Related Data Allergies Allergy/AdvReac Type Severity Reaction Status Date / Time codeine Allergy Itching Verified 12/03/16 16:08 Home Meds: Home Meds traZODone 100 mg PO BEDTIME 06/13/16 [History] Insulin Aspart [NovoLOG] 9 units SQ BID@0730,1130 10/25/16 [History] Insulin Detemir [Levemir Flextouch] 30 units SQ QAM 10/25/16 [History] OXcarbazepine [Oxcarbazepine] 300 mg PO BID 10/25/16 [History] QUEtiapine Fumarate [Seroquel Xr] 300 mg PO BEDTIME 10/25/16 [History] clonazePAM [Clonazepam] 1 mg PO BID PRN 10/25/16 [History] Insulin Aspart [NovoLOG] 10 unit SUBCUT ACDINNER 11/09/16 [History] Levothyroxine 25 mcg PO ACBREAKFAST 11/09/16 [History] buPROPion [Wellbutrin XL] 150 mg PO DAILY 11/09/16 [History] Nitrofurantoin Monohyd/M-Cryst [IJD: Nitrofurantoin Sherman-MCR] 100 mg PO BID #13 capsule 11/11/16 [Rx] Ondansetron [Zofran] 8 mg PO Q4H #30 tablet 12/03/16 [Rx] Prochlorperazine [Compazine] 10 mg PO Q6H #30 tablet 12/03/16 [Rx] Past Medical History HEENT History: Reports: Impaired Vision Cardiovascular History: Reports: None Respiratory History: Reports: Asthma Gastrointestinal History: Reports: Cholelithiasis, Hepatitis, Other (See Below) Other Gastrointestinal History: Gastric Ulcer Genitourinary History: Reports: UTI, Recurrent [employer] History: Reports: Musculoskeletal History: Reports: None Other Musculoskeletal History: Herniated disk, lumbar fracture, fractured right ankle Neurological History: Reports: Concussion, Other (See Below) Other Neuro History: 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 - Infectious Disease History Infectious Disease History: Reports: Chicken Pox, Hepatitis C - Past Surgical History Head Surgeries/Procedures: Reports: None HEENT Surgical History: Reports: None Respiratory Surgical History: Reports: None GI Surgical History: Reports: Cholecystectomy Female Surgical History: Reports: Section, Tubal Ligation Endocrine Surgical History: Reports: None Neurological Surgical History: Reports: Lumbar Spine Musculoskeletal Surgical History: Reports: Other (See Below) Other Musculoskeletal Surgeries/Procedures:: ankle surgery, back surgery Dermatological Surgical History: Reports: None Social & Family History - Family History Family Medical History: Noncontributory - Tobacco Use Smoking Status *Q: Former Smoker Years of Tobacco use: 15 Packs/Tins Daily: 10 Used Tobacco, but Quit: Yes Month Tobacco Last Used: August Second Hand Smoke Exposure: No - Caffeine Use Caffeine Use: Reports: Coffee Other Caffeine Use: occasional coffee, unsweetened tea - Alcohol Use Days Per Week of Alcohol Use: 0 - Recreational Drug Use Recreational Drug Use: No Drug Use in Last 12 Months: Yes Recreational Drug Type: Reports: Cocaine, Marijuana/Hashish Recreational Drug Use Frequency: Socially ED ROS GENERAL - Review of Systems Review Of Systems: See Below (See history of present illness) ED EXAM, GI/ABD - Physical Exam Exam: See Below (See history of present illness) Course - Vital Signs Last Recorded V/S: Last Vital Signs Temp 36.6 C 12/03/16 15:49 Pulse 77 12/03/16 15:49 Resp 18 12/03/16 15:49 BP 129/73 12/03/16 15:49 Pulse Ox 95 12/03/16 15:49 - Orders/Labs/Meds Orders: Active Orders 24 hr Category Date Time Status Abdomen Pelvis w Cont [CT] Stat Exams 12/03/16 17:29 Taken Labs: Laboratory Tests 12/03/16 12/03/16 12/03/16 Range/Units 16:37 16:43 16:43 WBC 3.68 L (4.0-11.0) K/uL RBC 3.96 L (4.30-5.90) M/uL Hgb 12.2 (12.0-16.0) g/dL Hct 36.5 (36.0-46.0) % MCV 92.2 (80.0-98.0) fL MCH 30.8 (27.0-32.0) pg MCHC 33.4 (31.0-37.0) g/dL RDW Std Deviation 58.0 (28.0-62.0) fl RDW Coeff of Jovan 17 H (11.0-15.0) % Plt Count 84 L (150-400) K/uL MPV 11.00 (7.40-12.00) fL Neut % (Auto) 47.1 L (48.0-80.0) % Lymph % (Auto) 39.1 (16.0-40.0) % Sherman % (Auto) 8.4 (0.0-15.0) % Eos % (Auto) 4.9 (0.0-7.0) % Baso % (Auto) 0.5 (0.0-1.5) % Neut # (Auto) 1.7 (1.4-5.7) K/uL Lymph # (Auto) 1.4 (0.6-2.4) K/uL Sherman # (Auto) 0.3 (0.0-0.8) K/uL Eos # (Auto) 0.2 (0.0-0.7) K/uL Baso # (Auto) 0.0 (0.0-0.1) K/uL Nucleated RBC % 0.0 /100WBC Nucleated RBCs # 0 K/uL Sodium 139 (136-146) mmol/L Potassium 4.8 (3.5-5.1) mmol/L Chloride 105 (98-110) mmol/L Carbon Dioxide 27 (21-31) mmol/L BUN 9 (6.0-23.0) mg/dL Creatinine 0.8 (0.6-1.5) mg/dL Est Cr Clr Drug Dosing 90.90 mL/min Estimated GFR (MDRD) > 60.0 ml/min Glucose 163 H (60-110) mg/dL Calcium 9.0 (8.8-10.8) mg/dL Total Bilirubin 1.2 (0.1-1.5) mg/dL AST 170 H (5-40) IU/L ALT 109 H (8-54) IU/L Alkaline Phosphatase 125 (40-150) Total Protein 7.6 (6.0-8.0) g/dL Albumin 3.0 L (3.5-5.0) g/dL Globulin 4.6 H (2.0-3.5) g/dL Albumin/Globulin Ratio 0.7 L (1.3-2.8) Amylase 71 (10-90) U/L Lipase 35 (7-80) U/L Urine Color YELLOW Urine Appearance SLT CLOUDY Urine pH 8.0 (5.0-8.0) Ur Specific [place] 1.015 (1.001-1.035) Urine Protein NEGATIVE (NEGATIVE) mg/dL Urine Glucose (UA) NEGATIVE (NEGATIVE) mg/dL Urine Ketones NEGATIVE (NEGATIVE) mg/dL Urine Occult Blood NEGATIVE (NEGATIVE) Urine Nitrite NEGATIVE (NEGATIVE) Urine Bilirubin NEGATIVE (NEGATIVE) Urine Urobilinogen 1.0 (<2.0) EU/dL Ur Leukocyte Esterase NEGATIVE (NEGATIVE) Urine RBC 0-1 (0-2/HPF) Urine WBC 0-2 (0-5/HPF) Ur Epithelial Cells MODERATE (NONE-FEW) Amorphous Sediment HEAVY (NEGATIVE) Urine Bacteria FEW (NEGATIVE) Meds: Medications Discontinued Medications Generic Name Dose Route Start Last Admin Trade Name Camron PRN Reason Stop Dose Admin Hydromorphone HCl 1 mg 12/03/16 16:16 12/03/16 16:48 Dilaudid IVPUSH 12/03/16 16:17 1 mg ONETIME ONE Administration Sodium Chloride 1,000 mls @ 999 mls/hr 12/03/16 16:16 12/03/16 16:44 Normal Saline IV 12/03/16 17:16 999 mls/hr .Bolus ONE Administration Iopamidol 100 ml 12/03/16 18:03 12/03/16 18:04 Isovue Multipack-370 (76%) IVPUSH 12/03/16 18:04 100 ml ONETIME STA Administration Ketorolac Tromethamine 30 mg 12/03/16 16:16 12/03/16 16:47 Toradol IVPUSH 12/03/16 16:17 30 mg ONETIME ONE Administration Ondansetron HCl 4 mg 12/03/16 16:16 12/03/16 16:45 Zofran IVPUSH 12/03/16 16:17 4 mg ONETIME ONE Administration Departure - Departure Time of Disposition: 19:37 Disposition: Home, Self-Care 01 Condition: Good Clinical Impression: Abdominal pain, Chronic hepatitis C, Nausea & vomiting - Discharge Information Prescriptions: Ondansetron [Zofran] 8 mg PO Q4H #30 tablet Prochlorperazine [Compazine] 10 mg PO Q6H #30 tablet Instructions: Abdominal Pain, Adult, [id number] Referrals: PCP,None [Primary Care Provider] - Forms: ED Department Discharge Additional Instructions: The following information is given to patients seen in the emergency department who are being discharged to home. This information is to outline your options for follow-up care. We provide all patients seen in our emergency department with a follow-up referral. The need for follow-up, as well as the timing and circumstances, are variable depending upon the specifics of your emergency department visit. If you don't have a primary care physician on staff, we will provide you with a referral. We always advise you to contact your personal physician following an emergency department visit to inform them of the circumstance of the visit and for follow-up with them and/or the need for any referrals to a consulting specialist. The emergency department will also refer you to a specialist when appropriate. This referral assures that you have the opportunity for follow-up care with a specialist. All of these measure are taken in an effort to provide you with optimal care, which includes your follow-up. Under all circumstances we always encourage you to contact your private physician who remains a resource for coordinating your care. When calling for follow-up care, please make the office aware that this follow-up is from your recent emergency room visit. If for any reason you are refused follow-up, please contact the [facility] Emergency Department at and asked to speak to the emergency department charge nurse. Take medication as directed Follow-up with your our be scheduled exams here as well as in [place] for continued monitoring and treatment for your chronic liver disease Return to ED as needed as discussed - My Orders Last 24 Hours: My Active Orders 12/03/16 17:29 Abdomen Pelvis w Cont [CT] Stat - Assessment/Plan Last 24 Hours: My Active Orders 12/03/16 17:29 Abdomen Pelvis w Cont [CT] Stat
[2016-12-03 17:25] LABS: CHLORIDE,CL 105 mmol/L (98-110); SODIUM,NA 139 mmol/L (136-146)
[2016-12-03] MEDS ORDERED: Iopamidol 755 MG/ML 500 ML Multipack Bottle IVPUSH STA (18:03)
[2016-12-03 20:25] VITALS: BP 120/75
--- NOTE | 2016-12-06 11:57 | CT ---
EXAM DATE: 12/03/16 PATIENT'S AGE: 41 Patient: RICO RINCON Facility: [place], [place] Site . Site : [id number] Study: CT Abdomen/Pelvis W CONT [id number]/[id number] 6:24:09 PM Ordering Physician: Doctor Cruz Final Report: INDICATION: Pain. TECHNIQUE: CT abdomen and pelvis acquired with 100 mL of Isovue 370 IV contrast. COMPARISON: CT abdomen and pelvis November 08, 2016. FINDINGS: Lower chest: Lung bases are clear. Liver: Irregularity of the liver contour consistent with cirrhosis. Mild venous collaterals in the upper abdomen. The main portal vein is mildly dilated at 15 mm. Spleen: Splenomegaly as before. The spleen measures approximately 16 cm in length. Pancreas: Unremarkable. Gallbladder and bile ducts: Cholecystectomy. Kidneys: Sub centimeter low-attenuation right renal lesion is too small to characterize but likely represents a cyst. Left renal cyst measures 10 mm. No evidence of urolithiasis or hydroureteronephrosis. Adrenal glands: Unremarkable. GI tract: No evidence of obstruction or acute appendicitis. Fecal loading of the colon. No free air or free fluid. Vascular structures: Unremarkable. Lymph nodes: Borderline upper abdominal lymphadenopathy likely reflects sequela of underlying hepatocellular disease. Pelvic Organs: Unremarkable. Bones: Mild degenerative changes with disc herniation and laminectomy at L5-S1. IMPRESSION: No acute intra-abdominal or pelvic abnormality. Cirrhosis, splenomegaly and sequela of underlying portal hypertension. Fecal loading of the colon. Dictated by Darryl Cyr MD @ 12/03/2016 7:06:14 PM Dictated by: Darryl Cyr MD @ 12/03/2016 19:06:51 (Electronic Signature) Report Signed by Proxy. [facility] HOSPITALChristel
== END 2016-12-03 19:55 | disposition home or self-care (01) ==
LOC: MW.ED 15:49
DX: K74.60 Unspecified cirrhosis of liver (principal); B18.2 Chronic viral hepatitis C; J45.909 Unspecified asthma, uncomplicated; E11.9 Type 2 diabetes mellitus without complications; Z88.5 Allergy status to narcotic agent; Z79.4 Long term (current) use of insulin; Z79.899 Other long term (current) drug therapy; Z87.440 Personal history of urinary (tract) infections; Z90.49 Acquired absence of other specified parts of digestive tract; Z87.891 Personal history of nicotine dependence
CPT/HCPCS: 36415; 74177; 80053; 81001; 82150; 83690; 85025; 96361; 96374; 96375; 99284; J1170; J1885; J2405; J7040; Q9967; 99283

== ENCOUNTER 2017-04-18 15:23 | Emergency (ER) | payer MEDICARE, OTHER ==
[2017-04-18 15:54] VITALS: BP 121/89
--- NOTE | 2017-04-18 16:20 | EDM.PDOC ---
ED HPI GENERAL MEDICAL PROBLEM - General Chief Complaint: General Stated Complaint: MEDS NEEDED Time Seen by Provider: 04/18/17 15:29 Source of Information: Reports: Patient History Limitations: Reports: No Limitations - History of Present Illness INITIAL COMMENTS - FREE TEXT/NARRATIVE: HISTORY AND PHYSICAL: History of present illness: Patient is a 41-year-old female who presents to the emergency room today requesting inpatient mental health evaluation. She has a long-standing history of anxiety and bipolar schizophrenia. She normally sees Kary Barreto and Dr. Keith for her health care needs. She states in August 2016 she saw both health care or virus who adjusted her medications. She states she has a history of hepatitis C and believes that her medications were ranged due to her "liver enzymes". She was unsatisfied with the medication adjustments and decided to quit all of her medications as she did not like the way they made her feel. She has not seen a health care provider since that time. She reports she will occasionally take a Wellbutrin or Klonopin as needed. Denies any thoughts of self-harm or suicide. Denies any thoughts of harming others. She denies any auditory or visual hallucinations. She currently denies any systemic complaints. Denies any alcohol or drug abuse. History of asthma, bipolar disorder, diabetes, hepatitis C, and anxiety. Review of systems: As per history of present illness and below otherwise all systems reviewed and negative. Past medical history: As per history of present illness and as reviewed below otherwise noncontributory. Surgical history: As per history of present illness and as reviewed below otherwise noncontributory. Social history: No reported history of drug or alcohol abuse. Family history: As per history of present illness and as reviewed below otherwise noncontributory. Physical exam: Gen.: Well-developed and well-nourished 41-year-old female. A flat affect. Avoids making eye contact. Alert and oriented. HEENT: Atraumatic, normocephalic, pupils reactive, negative for conjunctival pallor or scleral icterus, mucous membranes moist, throat clear, neck supple, nontender, trachea midline. Lungs: Clear to auscultation, breath sounds equal bilaterally, chest nontender. Heart: S1S2, regular, rate and rhythm without overt murmurs. Abdomen: Soft, nondistended, nontender. Negative for masses or hepatosplenomegaly. Negative for costovertebral tenderness. Pelvis: Stable nontender. Genitourinary: Deferred. Rectal: Deferred. Extremities: Atraumatic, moves all extremities per self without difficulty or deficits, negative for cords or calf pain. Neurovascular unremarkable. Neuro: Awake, alert, oriented. Cranial nerves II through XII unremarkable. Cerebellum unremarkable. Motor and sensory unremarkable throughout. Exam nonfocal. Skin: Intact, warm, dry. No evidence of self-inflicted injuries. Patient is alert and oriented. She is able to speak in full sentences. She denies any thoughts of self-harm or suicide. Her is at the bedside and states that "she's just been really depressed". Patient states that she does not want to see Kary Barreto anymore and would like a referral to a psychiatric provider who can provide inpatient care. We did discuss her options for her mental health issues. The first option would be following up at [facility] to see a new provider and have her medications reintroduce/adjusted. Second option would be to follow up at a facility who does have inpatient mental health, such as [facility] or [facility]. She reports she has been my not in the past for her mental health needs and will be comfortable presenting there. I did offer to provide routine lab work to make sure that there was no underlying systemic illness going on. She declines any lab work at this time. The would like to take the patient to [facility] to present to their emergency department to see if they would take her as an inpatient for treatment. Both patient and are aware that presenting to [place] does not guarantee that she will be admitted. states he will drive the patient if they go to [facility]. We did discuss that if the patient does have thoughts of suicide, harming herself or begins to have visual or auditory hallucination she does need to present to the emergency room right away. The is comfortable for her to go home and have close follow-up. I did provide them with information on [facility] she is to follow up there in the future. Diagnostics: [] Therapeutics: [] Impression: Screening for referral for mental health needs History of bipolar schizophrenia History of depression Plan: 1. As we discussed we do not have inpatient mental health treatment programs. If you desire inpatient treatment you will need to present to a facility such as [facility] in [place] or [facility] for further evaluation. 2. Information for [facility] [employer] has been given to you. You may follow-up with them for outpatient treatment. 3. If you do start to have thoughts of suicide, self-harm or visual or auditory hallucinations please return to the emergency as soon as possible. 4. Follow-up with her primary care provider in the next 1-2 days. Return to the ED as needed and as discussed. Definitive disposition and diagnosis as appropriate pending reevaluation and review of above. Duration: Chronic Generalized Pain Score (Numeric/FACES): 3 - Related Data Allergies Allergy/AdvReac Type Severity Reaction Status Date / Time codeine Allergy Itching Verified 12/03/16 16:08 Home Meds: Home Meds traZODone 100 mg PO BEDTIME 06/13/16 [History] Insulin Aspart [NovoLOG] 9 units SQ BID@0730,1130 10/25/16 [History] Insulin Detemir [Levemir Flextouch] 30 units SQ QAM 10/25/16 [History] OXcarbazepine [Oxcarbazepine] 300 mg PO BID 10/25/16 [History] QUEtiapine Fumarate [Seroquel Xr] 300 mg PO BEDTIME 10/25/16 [History] clonazePAM [Clonazepam] 1 mg PO BID PRN 10/25/16 [History] Insulin Aspart [NovoLOG] 10 unit SUBCUT ACDINNER 11/09/16 [History] Levothyroxine 25 mcg PO ACBREAKFAST 11/09/16 [History] buPROPion [Wellbutrin XL] 150 mg PO DAILY 11/09/16 [History] Nitrofurantoin Monohyd/M-Cryst [IJD: Nitrofurantoin Schoolcraft-MCR] 100 mg PO BID #13 capsule 11/11/16 [Rx] Ondansetron [Zofran] 8 mg PO Q4H #30 tablet 12/03/16 [Rx] Prochlorperazine [Compazine] 10 mg PO Q6H #30 tablet 12/03/16 [Rx] Past Medical History - Past Health History Medical/Surgical History: Denies Medical/Surgical History HEENT History: Reports: Impaired Vision Cardiovascular History: Reports: None Respiratory History: Reports: Asthma Gastrointestinal History: Reports: Cholelithiasis, Hepatitis, Other (See Below) Other Gastrointestinal History: Gastric Ulcer Genitourinary History: Reports: UTI, Recurrent CAR TRIMMER History: Reports: Musculoskeletal History: Reports: None Other Musculoskeletal History: Herniated disk, lumbar fracture, fractured right ankle Neurological History: Reports: Concussion, Other (See Below) Other Neuro History: 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 - Infectious Disease History Infectious Disease History: Reports: Chicken Pox, Hepatitis C - Past Surgical History Head Surgeries/Procedures: Reports: None HEENT Surgical History: Reports: None Respiratory Surgical History: Reports: None GI Surgical History: Reports: Cholecystectomy Female Surgical History: Reports: Section, Tubal Ligation Endocrine Surgical History: Reports: None Neurological Surgical History: Reports: Lumbar Spine Musculoskeletal Surgical History: Reports: Other (See Below) Other Musculoskeletal Surgeries/Procedures:: ankle surgery, back surgery Dermatological Surgical History: Reports: None Social & Family History - Family History Family Medical History: Noncontributory - Tobacco Use Smoking Status *Q: Former Smoker Years of Tobacco use: 15 Packs/Tins Daily: 10 Used Tobacco, but Quit: Yes Month Tobacco Last Used: August Second Hand Smoke Exposure: No - Caffeine Use Caffeine Use: Reports: Coffee Other Caffeine Use: occasional coffee, unsweetened tea - Alcohol Use Days Per Week of Alcohol Use: 0 - Recreational Drug Use Recreational Drug Use: No Drug Use in Last 12 Months: Yes Recreational Drug Type: Reports: Cocaine, Marijuana/Hashish Recreational Drug Use Frequency: Socially ED ROS GENERAL - Review of Systems Review Of Systems: ROS reveals no pertinent complaints other than HPI. ED EXAM, GENERAL - Physical Exam Exam: See Below (See dictation) Course - Vital Signs Last Recorded V/S: Last Vital Signs Temp 98.4 F 04/18/17 15:50 Pulse 96 04/18/17 15:50 Resp 18 04/18/17 15:50 BP 121/89 04/18/17 15:50 Pulse Ox 96 04/18/17 15:50 - Orders/Labs/Meds Orders: Active Orders 24 hr Category Date Time Status CBC WITH AUTO DIFF [HEME] Stat Lab 04/18/17 16:06 Stop Req COMPREHENSIVE METABOLIC PN,CMP [CHEM] Stat Lab 04/18/17 16:06 Stop Req TSH [CHEM] Stat Lab 04/18/17 16:06 Stop Req Departure - Departure Time of Disposition: 16:35 Disposition: Home, Self-Care 01 Clinical Impression: History of bipolar disorder, History of depression - Discharge Information Referrals: PCP,None [Primary Care Provider] - Forms: ED Department Discharge Additional Instructions: My general discharge The following information is given to patients seen in the emergency department who are being discharged to home. This information is to outline your options for follow-up care. We provide all patients seen in our emergency department with a follow-up referral. The need for follow-up, as well as the timing and circumstances, are variable depending upon the specifics of your emergency department visit. If you don't have a primary care physician on staff, we will provide you with a referral. We always advise you to contact your personal physician following an emergency department visit to inform them of the circumstance of the visit and for follow-up with them and/or the need for any referrals to a consulting specialist. The emergency department will also refer you to a specialist when appropriate. This referral assures that you have the opportunity for follow-up care with a specialist. All of these measure are taken in an effort to provide you with optimal care, which includes your follow-up. Under all circumstances we always encourage you to contact your private physician who remains a resource for coordinating your care. When calling for follow-up care, please make the office aware that this follow-up is from your recent emergency room visit. If for any reason you are refused follow-up, please contact the [facility] Emergency Department at and asked to speak to the emergency department charge nurse. [facility] Primary [facility] [address] [place] [phone] 1. As we discussed we do not have inpatient mental health treatment programs. If you desire inpatient treatment you will need to present to a facility such as [facility] or [facility] for further evaluation. 2. Information for [facility] [employer] has been given to you. You may follow-up with them for outpatient treatment. 3. If you do start to have thoughts of suicide, self-harm or visual or auditory hallucinations please return to the emergency as soon as possible. 4. Follow-up with her primary care provider in the next 1-2 days. Return to the ED as needed and as discussed. - My Orders Last 24 Hours: My Active Orders 04/18/17 16:06 CBC WITH AUTO DIFF [HEME] Stat COMPREHENSIVE METABOLIC PN,CMP [CHEM] Stat TSH [CHEM] Stat - Assessment/Plan Last 24 Hours: My Active Orders 04/18/17 16:06 CBC WITH AUTO DIFF [HEME] Stat COMPREHENSIVE METABOLIC PN,CMP [CHEM] Stat TSH [CHEM] Stat
[2017-04-18 16:36] LABS: CHLORIDE,CL 105 mmol/L (98-110); SODIUM,NA 142 mmol/L (136-146)
== END 2017-04-18 16:52 | disposition home or self-care (01) ==
LOC: MW.ED 15:23
DX: F20.9 Schizophrenia, unspecified (principal); F31.9 Bipolar disorder, unspecified; Z87.891 Personal history of nicotine dependence; E11.9 Type 2 diabetes mellitus without complications; Z88.5 Allergy status to narcotic agent; Z79.4 Long term (current) use of insulin; Z79.899 Other long term (current) drug therapy
CPT/HCPCS: 36415; 80053; 84443; 85025; 99283

== ENCOUNTER 2017-04-21 23:16 | Emergency (ER) | payer MEDICARE, OTHER ==
[2017-04-21] MEDS ORDERED: Sodium Chloride 0.9% 1,000 ML IV ONE (23:33)
[2017-04-21] MEDS ORDERED: Ketorolac 30 MG/ML SDV IVPUSH ONE (23:33)
--- NOTE | 2017-04-21 23:44 | EDM.PDOC ---
ED HPI GENERAL MEDICAL PROBLEM - General Chief Complaint: Abdominal Pain Stated Complaint: PT HAS UTI Time Seen by Provider: 04/21/17 23:22 - History of Present Illness INITIAL COMMENTS - FREE TEXT/NARRATIVE: HISTORY AND PHYSICAL: History of present illness: Patient's 41-year-old female presents with concern of possible urinary tract infections that she's had some mild low back pain she is really started on Levaquin after been diagnosed with UTI at [facility] Review of systems: As per history of present illness and below otherwise all systems reviewed and negative. Past medical history: As per history of present illness and as reviewed below otherwise noncontributory. Surgical history: As per history of present illness and as reviewed below otherwise noncontributory. Social history: No reported history of drug or alcohol abuse. Family history: As per history of present illness and as reviewed below otherwise noncontributory. Physical exam: HEENT: Atraumatic, normocephalic, pupils reactive, negative for conjunctival pallor or scleral icterus, mucous membranes moist, throat clear, neck supple, nontender, trachea midline. Lungs: Clear to auscultation, breath sounds equal bilaterally, chest nontender. Heart: S1S2, regular, negative for clicks, rubs, or JVD. Abdomen: Soft, nondistended, nontender. Negative for masses or hepatosplenomegaly. Negative for costovertebral tenderness. Pelvis: Stable nontender. Genitourinary: Deferred. Rectal: Deferred. Extremities: Atraumatic, negative for cords or calf pain. Neurovascular unremarkable. Neuro: Awake, alert, oriented. Cranial nerves II through XII unremarkable. Cerebellum unremarkable. Motor and sensory unremarkable throughout. Exam nonfocal. Diagnostics: CBC CMP blood cultures [address] abdomen and pelvis with IV contrast UA urine culture and sensitivity Therapeutics: Daily 1 L bolus and Toradol 30 mg IV Impression: #1 history of UTI #2 back pain #3 history of hepatitis C Definitive disposition and diagnosis as appropriate pending reevaluation and review of above. Treatments CALL CENTER SUPPORT REPRESENTATIVE: Reports: NSAIDS lower abdominal area Pain Score (Numeric/FACES): 9 - Related Data Allergies Allergy/AdvReac Type Severity Reaction Status Date / Time codeine Allergy Itching Verified 04/21/17 23:25 Home Meds: Home Meds traZODone 100 mg PO BEDTIME 06/13/16 [History] Insulin Aspart [NovoLOG] 9 units SQ BID@0730,1130 10/25/16 [History] Insulin Detemir [Levemir Flextouch] 30 units SQ QAM 10/25/16 [History] OXcarbazepine [Oxcarbazepine] 600 mg PO BID 10/25/16 [History] clonazePAM [Clonazepam] 1 mg PO BID PRN 10/25/16 [History] Insulin Aspart [NovoLOG] 10 unit SUBCUT ACDINNER 11/09/16 [History] Levothyroxine 25 mcg PO ACBREAKFAST 11/09/16 [History] buPROPion [Wellbutrin XL] 300 mg PO DAILY 11/09/16 [History] Omeprazole 40 mg PO ACBREAKFAST 04/18/17 [History] metFORMIN HCl [Metformin HCl] 1,000 mg PO BIDMEALS 04/18/17 [History] Past Medical History - Past Health History Medical/Surgical History: Denies Medical/Surgical History HEENT History: Reports: Impaired Vision Cardiovascular History: Reports: None Respiratory History: Reports: Asthma Gastrointestinal History: Reports: Cholelithiasis, Hepatitis, Other (See Below) Other Gastrointestinal History: Gastric Ulcer Genitourinary History: Reports: UTI, Recurrent 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 - Infectious Disease History Infectious Disease History: Reports: Hepatitis C - Past Surgical History Head Surgeries/Procedures: Reports: None HEENT Surgical History: Reports: None Respiratory Surgical History: Reports: None GI Surgical History: Reports: Cholecystectomy Female Surgical History: Reports: Section, Tubal Ligation Endocrine Surgical History: Reports: None Neurological Surgical History: Reports: Lumbar Spine Musculoskeletal Surgical History: Reports: Other (See Below) Other Musculoskeletal Surgeries/Procedures:: ankle surgery, back surgery Dermatological Surgical History: Reports: None Social & Family History - Family History Family Medical History: Noncontributory - Tobacco Use Smoking Status *Q: Current Every Day Smoker Years of Tobacco use: 1 Packs/Tins Daily: 0.5 Used Tobacco, but Quit: Yes Month Tobacco Last Used: August Second Hand Smoke Exposure: No - Caffeine Use Caffeine Use: Reports: Coffee Other Caffeine Use: occasional coffee, unsweetened tea - Alcohol Use Days Per Week of Alcohol Use: 0 - Recreational Drug Use Recreational Drug Use: No Drug Use in Last 12 Months: Yes Recreational Drug Type: Reports: Cocaine, Marijuana/Hashish Recreational Drug Use Frequency: Socially ED ROS GENERAL - Review of Systems Review Of Systems: ROS reveals no pertinent complaints other than HPI. ED EXAM, GENERAL - Physical Exam Exam: See Below (The dictation) Course - Vital Signs Last Recorded V/S: Last Vital Signs Temp 36.7 C 04/21/17 23:25 Pulse 84 04/21/17 23:25 Resp 18 04/21/17 23:25 BP 109/70 04/21/17 23:25 Pulse Ox 98 04/21/17 23:25 - Orders/Labs/Meds Orders: Active Orders 24 hr Category Date Time Status Abdomen Pelvis wo Cont [CT] Stat Exams 04/21/17 23:57 Taken Abdomen w wo Cont [CT] Stat Exams 04/21/17 23:39 Stop Req CTA Abdomen W & W/O Contrast [Ang Abdomen] [CT] Stat Exams 04/21/17 23:43 Stop Req COMPREHENSIVE METABOLIC PN,CMP [CHEM] Stat Lab 04/21/17 23:45 Received CULTURE BLOOD [BC] Stat Lab 04/21/17 23:45 Received CULTURE BLOOD [BC] Stat Lab 04/21/17 23:50 Received CULTURE URINE [RM] Stat Lab 04/21/17 23:33 Received Blood Culture x2 Reflex Set [OM.PC] Stat Oth 04/21/17 23:33 Ordered Labs: Laboratory Tests 04/21/17 04/21/17 04/21/17 Range/Units 23:33 23:33 23:45 WBC 2.82 L (4.0-11.0) K/uL RBC 3.62 L (4.30-5.90) M/uL Hgb 12.0 (12.0-16.0) g/dL Hct 35.3 L (36.0-46.0) % MCV 97.5 (80.0-98.0) fL MCH 33.1 H (27.0-32.0) pg MCHC 34.0 (31.0-37.0) g/dL RDW Std Deviation 58.4 (28.0-62.0) fl RDW Coeff of Jovan 16 H (11.0-15.0) % Plt Count 39 L (150-400) K/uL MPV 11.10 (7.40-12.00) fL Neut % (Auto) 44.0 L (48.0-80.0) % Lymph % (Auto) 42.9 H (16.0-40.0) % [place] % (Auto) 9.2 (0.0-15.0) % Eos % (Auto) 3.5 (0.0-7.0) % Baso % (Auto) 0.4 (0.0-1.5) % Neut # (Auto) 1.2 L (1.4-5.7) K/uL Lymph # (Auto) 1.2 (0.6-2.4) K/uL [place] # (Auto) 0.3 (0.0-0.8) K/uL Eos # (Auto) 0.1 (0.0-0.7) K/uL Baso # (Auto) 0.0 (0.0-0.1) K/uL Nucleated RBC % 0.0 /100WBC Nucleated RBCs # 0 K/uL Lactate (0.20-2.00) mmol/L Urine Color DARK YELLOW Urine Appearance CLOUDY Urine pH 6.5 (5.0-8.0) Ur Specific [place] >= 1.030 (1.001-1.035) Urine Protein TRACE (NEGATIVE) mg/dL Urine Glucose (UA) NEGATIVE (NEGATIVE) mg/dL Urine Ketones 15 H (NEGATIVE) mg/dL Urine Occult Blood NEGATIVE (NEGATIVE) Urine Nitrite NEGATIVE (NEGATIVE) Urine Bilirubin MODERATE H (NEGATIVE) Urine Ictotest POSITIVE Urine Urobilinogen 4.0 H (<2.0) EU/dL Ur Leukocyte Esterase TRACE (NEGATIVE) Urine RBC 1-3 (0-2/HPF) Urine WBC 25-30 (0-5/HPF) Ur Epithelial Cells MANY (NONE-FEW) Urine Bacteria 1+ H (NEGATIVE) Urine Mucus MODERATE (NONE-MOD) Urine Opiates Screen NEGATIVE (NEGATIVE) Ur Oxycodone Screen NEGATIVE (NEGATIVE) Urine Methadone Screen NEGATIVE (NEGATIVE) Ur Barbiturates Screen NEGATIVE (NEGATIVE) Ur Phencyclidine Scrn NEGATIVE (NEGATIVE) Ur Amphetamine Screen NEGATIVE (NEGATIVE) U Methamphetamines Scrn POSITIVE (NEGATIVE) U Benzodiazepines Scrn NEGATIVE (NEGATIVE) U Cocaine Metab Screen NEGATIVE (NEGATIVE) U Marijuana (THC) Screen POSITIVE (NEGATIVE) 04/21/17 Range/Units 23:45 WBC (4.0-11.0) K/uL RBC (4.30-5.90) M/uL Hgb (12.0-16.0) g/dL Hct (36.0-46.0) % MCV (80.0-98.0) fL MCH (27.0-32.0) pg MCHC (31.0-37.0) g/dL RDW Std Deviation (28.0-62.0) fl RDW Coeff of Jovan (11.0-15.0) % Plt Count (150-400) K/uL MPV (7.40-12.00) fL Neut % (Auto) (48.0-80.0) % Lymph % (Auto) (16.0-40.0) % [place] % (Auto) (0.0-15.0) % Eos % (Auto) (0.0-7.0) % Baso % (Auto) (0.0-1.5) % Neut # (Auto) (1.4-5.7) K/uL Lymph # (Auto) (0.6-2.4) K/uL [place] # (Auto) (0.0-0.8) K/uL Eos # (Auto) (0.0-0.7) K/uL Baso # (Auto) (0.0-0.1) K/uL Nucleated RBC % /100WBC Nucleated RBCs # K/uL Lactate 1.2 (0.20-2.00) mmol/L Urine Color Urine Appearance Urine pH (5.0-8.0) Ur Specific [place] (1.001-1.035) Urine Protein (NEGATIVE) mg/dL Urine Glucose (UA) (NEGATIVE) mg/dL Urine Ketones (NEGATIVE) mg/dL Urine Occult Blood (NEGATIVE) Urine Nitrite (NEGATIVE) Urine Bilirubin (NEGATIVE) Urine Ictotest Urine Urobilinogen (<2.0) EU/dL Ur Leukocyte Esterase (NEGATIVE) Urine RBC (0-2/HPF) Urine WBC (0-5/HPF) Ur Epithelial Cells (NONE-FEW) Urine Bacteria (NEGATIVE) Urine Mucus (NONE-MOD) Urine Opiates Screen (NEGATIVE) Ur Oxycodone Screen (NEGATIVE) Urine Methadone Screen (NEGATIVE) Ur Barbiturates Screen (NEGATIVE) Ur Phencyclidine Scrn (NEGATIVE) Ur Amphetamine Screen (NEGATIVE) U Methamphetamines Scrn (NEGATIVE) U Benzodiazepines Scrn (NEGATIVE) U Cocaine Metab Screen (NEGATIVE) U Marijuana (THC) Screen (NEGATIVE) Meds: Medications Discontinued Medications Generic Name Dose Route Start Last Admin Trade Name Freq PRN Reason Stop Dose Admin Sodium Chloride 1,000 mls @ 999 mls/hr 04/21/17 23:33 04/21/17 23:49 Normal Saline IV 04/22/17 00:33 999 mls/hr STAT ONE Administration Ketorolac Tromethamine 30 mg 04/21/17 23:33 04/21/17 23:56 Toradol IVPUSH 04/21/17 23:34 30 mg ONETIME ONE Administration Departure - Departure Time of Disposition: 00:36 Disposition: Home, Self-Care 01 Condition: Good Clinical Impression: Polysubstance abuse UTI (urinary tract infection) Qualifiers: Urinary tract infection type: site unspecified Hematuria presence: without hematuria Qualified Code(s): N39.0 - Urinary tract infection, site not specified - Discharge Information Referrals: PCP,None [Primary Care Provider] - Forms: ED Department Discharge Additional Instructions: The following information is given to patients seen in the emergency department who are being discharged to home. This information is to outline your options for follow-up care. We provide all patients seen in our emergency department with a follow-up referral. The need for follow-up, as well as the timing and circumstances, are variable depending upon the specifics of your emergency department visit. If you don't have a primary care physician on staff, we will provide you with a referral. We always advise you to contact your personal physician following an emergency department visit to inform them of the circumstance of the visit and for follow-up with them and/or the need for any referrals to a consulting specialist. The emergency department will also refer you to a specialist when appropriate. This referral assures that you have the opportunity for followup care with a specialist. All of these measure are taken in an effort to provide you with optimal care, which includes your followup. Under all circumstances we always encourage you to contact your private physician who remains a resource for coordinating your care. When calling for followup care, please make the office aware that this follow-up is from your recent emergency room visit. If for any reason you are refused follow-up, please contact the [facility] emergency department at and asked to speak to the emergency department charge nurse. Follow-up primary medical doctor 1-2 days continue current medications as prescribed return as needed as discussed] - My Orders Last 24 Hours: My Active Orders 04/21/17 23:33 CULTURE URINE [RM] Stat Blood Culture x2 Reflex Set [OM.PC] Stat 04/21/17 23:39 Abdomen w wo Cont [CT] Stat 04/21/17 23:43 CTA Abdomen W & W/O Contrast [Ang Abdomen] [CT] Stat 04/21/17 23:45 COMPREHENSIVE METABOLIC PN,CMP [CHEM] Stat CULTURE BLOOD [BC] Stat 04/21/17 23:50 CULTURE BLOOD [BC] Stat 04/21/17 23:57 Abdomen Pelvis wo Cont [CT] Stat - Assessment/Plan Last 24 Hours: My Active Orders 04/21/17 23:33 CULTURE URINE [RM] Stat Blood Culture x2 Reflex Set [OM.PC] Stat 04/21/17 23:39 Abdomen w wo Cont [CT] Stat 04/21/17 23:43 CTA Abdomen W & W/O Contrast [Ang Abdomen] [CT] Stat 04/21/17 23:45 COMPREHENSIVE METABOLIC PN,CMP [CHEM] Stat CULTURE BLOOD [BC] Stat 04/21/17 23:50 CULTURE BLOOD [BC] Stat 04/21/17 23:57 Abdomen Pelvis wo Cont [CT] Stat
[2017-04-22 00:34] LABS: CHLORIDE,CL 107 mmol/L (98-110); SODIUM,NA 139 mmol/L (136-146)
[2017-04-22 01:30] VITALS: BP 132/78
--- NOTE | 2017-04-22 11:54 | CT ---
EXAM DATE: 04/21/17 PATIENT'S AGE: 41 Patient: RICO RINCON Facility: [place], [place] Site Site : [id number] Study: CT Abdomen/Pelvis [id number]/[id number] 12:22:04 AM Ordering Physician: GORAN Final Report: INDICATION: Urinary tract infection, pain TECHNIQUE: CT abdomen and pelvis without contrast. COMPARISON: 12/03/2016 FINDINGS: Lower chest: Unremarkable. Liver: Unremarkable. Spleen: Splenomegaly. Pancreas: Unremarkable. Gallbladder and bile ducts: Status post cholecystectomy. Kidneys: Unremarkable. No kidney or ureteral stones and no hydronephrosis. Adrenal glands: Unremarkable. GI tract: Diffuse colonic fecal retention. Appendix is normal. Vascular structures: Unremarkable. Lymph nodes: Aortocaval adenopathy. Miscellaneous: Unremarkable. No free air or significant free fluid. Pelvic Organs: Unremarkable. Bones: Unremarkable for age. IMPRESSION: No urinary tract stones or hydronephrosis. Normal urinary bladder. Splenomegaly. Status post cholecystectomy. Diffuse colonic fecal retention. Stable aortocaval adenopathy. Dictated by Alfredito Schuster MD @ 04/22/2017 12:39:13 AM Dictated by: Alfredito Schuster MD @ 04/22/2017 00:39:19 (Electronic Signature) Report Signed by Proxy. [facility] HOSPITALChristel
== END 2017-04-22 01:30 | disposition home or self-care (01) ==
LOC: MW.ED 23:16
DX: N39.0 Urinary tract infection, site not specified (principal); F19.10 Other psychoactive substance abuse, uncomplicated; E11.9 Type 2 diabetes mellitus without complications; J45.909 Unspecified asthma, uncomplicated; Z79.4 Long term (current) use of insulin; Z79.899 Other long term (current) drug therapy; Z88.5 Allergy status to narcotic agent; F17.210 Nicotine dependence, cigarettes, uncomplicated
CPT/HCPCS: 36415; 74176; 80053; 80305; 81001; 83605; 85025; 87040; 87086; 96361; 96374; 99284; J1885; J7040; 99283

== ENCOUNTER 2017-04-22 16:47 | Emergency (ER) | payer MEDICARE, OTHER ==
--- NOTE | 2017-04-22 17:24 | EDM.PDOC ---
ED HPI GENERAL MEDICAL PROBLEM - General Chief Complaint: Abdominal Pain Stated Complaint: ABDOMINAL PAIN/POSSIBLE UTI Time Seen by Provider: 04/22/17 17:22 Source of Information: Reports: Patient - History of Present Illness INITIAL COMMENTS - FREE TEXT/NARRATIVE: HISTORY AND PHYSICAL: History of present illness: [Patient with recent admission for psych history/bipolar disorder was admitted to [facility] inpatient for medication adjustment over the last several days she was released on , at that time she was found to have a urinary tract infection placed on Levaquin she complains of low pelvic pain and some low back discomfort rated 3 out of 10 nonradiating. She did not fill her home medications until this morning, it does not appear that she has taken any Levaquin I'm not sure and she is not sure if she was treated at [facility]. She was seen again yesterday with complaints of abdominal pain by another provider with full lab workup including CT abdomen pelvis no contrast, no acute findings no ureteral stones or renal stones patient is postcholecystectomy this is also shown on the CT scan appendix was well visualized with no acute changes. There was a large amount of stool noted on the CT patient states she has had normal bowel movements last bowel movement within the last 12 hours Patient and present to emergency room stating that they were mistreated and not provided narcotic pain medication, they had threatened to file suit against initial nursing staff, I'm uncertain of what the grounds for that would be. Patient was found to have been positive for methamphetamine and marijuana yesterday on her urine screen negative apparently went to a local outside drug screening facility and her urine was clear at that time per the patient and her they do not produce a copy of the results. Chronic history of hepatitis C They have been fairly cooperative with me during my exam and history and review of the medications, I repeated a CBC and CMP CRP as below will follow and redirect] Review of systems: As per history of present illness and below otherwise all systems reviewed and negative. Past medical history: As per history of present illness and as reviewed below otherwise noncontributory. Surgical history: As per history of present illness and as reviewed below otherwise noncontributory. Social history: No reported history of drug or alcohol abuse. Family history: As per history of present illness and as reviewed below otherwise noncontributory. Physical exam: HEENT: Atraumatic, normocephalic, pupils reactive, negative for conjunctival pallor or scleral icterus, mucous membranes moist, throat clear, neck supple, nontender, trachea midline. Lungs: Clear to auscultation, breath sounds equal bilaterally, chest nontender. Heart: S1S2, regular, negative for clicks, rubs, or JVD. Abdomen: Soft, nondistended, nontender. Negative for masses or hepatosplenomegaly. Negative for costovertebral tenderness. Pelvis: Stable nontender. Genitourinary: Deferred. Rectal: Deferred. Extremities: Atraumatic, negative for cords or calf pain. Neurovascular unremarkable. Neuro: Awake, alert, oriented. Cranial nerves II through XII unremarkable. Cerebellum unremarkable. Motor and sensory unremarkable throughout. Exam nonfocal. Diagnostics: [CBC CMP CRP ] Therapeutics: [Continue home medications as prescribed Including Levaquin patient prefers to take Azo which she is taking at current as well Reglan to promote further bowel movement have suggested maybe MiraLAX may benefit Toradol 10 mg by mouth 3 times a day when necessary #15 no refill ] Impression: [UTI Drug-seeking behavior Polysubstance abuse] Definitive disposition and diagnosis as appropriate pending reevaluation and review of above. abdominal Pain Score (Numeric/FACES): 8 - Related Data Allergies Allergy/AdvReac Type Severity Reaction Status Date / Time codeine Allergy Itching Verified 04/22/17 17:14 Home Meds: Home Meds Insulin Aspart [Novolog] 0 unit SQ ASDIRECTED 04/22/17 [History] Levofloxacin 750 mg PO DAILY 04/22/17 [History] metFORMIN HCl [Metformin HCl] 1,000 mg PO DAILY PRN 04/22/17 [History] risperiDONE [Risperdal] 10 mg PO DAILY 04/22/17 [History] traZODone 50 mg PO BEDTIME 04/22/17 [History] Past Medical History - Past Health History Medical/Surgical History: Denies Medical/Surgical History HEENT History: Reports: Impaired Vision Cardiovascular History: Reports: None Respiratory History: Reports: Asthma Gastrointestinal History: Reports: Cholelithiasis, Hepatitis, Other (See Below) Other Gastrointestinal History: Gastric Ulcer Genitourinary History: Reports: UTI, Recurrent 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 - Infectious Disease History Infectious Disease History: Reports: Hepatitis C - Past Surgical History Head Surgeries/Procedures: Reports: None HEENT Surgical History: Reports: None Respiratory Surgical History: Reports: None GI Surgical History: Reports: Cholecystectomy Female Surgical History: Reports: Section, Tubal Ligation Endocrine Surgical History: Reports: None Neurological Surgical History: Reports: Lumbar Spine Musculoskeletal Surgical History: Reports: Other (See Below) Other Musculoskeletal Surgeries/Procedures:: ankle surgery, back surgery Dermatological Surgical History: Reports: None Social & Family History - Family History Family Medical History: Noncontributory - Tobacco Use Smoking Status *Q: Current Every Day Smoker Years of Tobacco use: 1 Packs/Tins Daily: 0.5 Used Tobacco, but Quit: Yes Month Tobacco Last Used: August Second Hand Smoke Exposure: No - Caffeine Use Caffeine Use: Reports: Coffee Other Caffeine Use: occasional coffee, unsweetened tea - Alcohol Use Days Per Week of Alcohol Use: 0 - Recreational Drug Use Recreational Drug Use: No Drug Use in Last 12 Months: Yes Recreational Drug Type: Reports: Cocaine, Marijuana/Hashish Recreational Drug Use Frequency: Socially ED ROS GENERAL - Review of Systems Review Of Systems: ROS reveals no pertinent complaints other than HPI. ED EXAM, GENERAL - Physical Exam Exam: See Below Course - Vital Signs Last Recorded V/S: Last Vital Signs Temp 98.2 F 04/22/17 17:21 Pulse 105 H 04/22/17 17:21 Resp 18 04/22/17 17:21 BP 121/91 H 04/22/17 17:21 Pulse Ox 99 04/22/17 17:21 - Orders/Labs/Meds Orders: Active Orders 24 hr Category Date Time Status CMP [COMPREHENSIVE METABOLIC PN,CMP] [CHEM] Stat Lab 04/22/17 18:05 Received CRP [C-REACTIVE PROTEIN] [CHEM] Stat Lab 04/22/17 18:05 Received Labs: Laboratory Tests 04/22/17 Range/Units 18:05 WBC 2.80 L (4.0-11.0) K/uL RBC 3.60 L (4.30-5.90) M/uL Hgb 11.8 L (12.0-16.0) g/dL Hct 35.3 L (36.0-46.0) % MCV 98.1 H (80.0-98.0) fL MCH 32.8 H (27.0-32.0) pg MCHC 33.4 (31.0-37.0) g/dL RDW Std Deviation 59.2 (28.0-62.0) fl RDW Coeff of Jovan 17 H (11.0-15.0) % Plt Count 39 L (150-400) K/uL MPV 11.40 (7.40-12.00) fL Neut % (Auto) 57.1 (48.0-80.0) % Lymph % (Auto) 33.6 (16.0-40.0) % [place] % (Auto) 6.1 (0.0-15.0) % Eos % (Auto) 2.5 (0.0-7.0) % Baso % (Auto) 0.7 (0.0-1.5) % Neut # (Auto) 1.6 (1.4-5.7) K/uL Lymph # (Auto) 0.9 (0.6-2.4) K/uL [place] # (Auto) 0.2 (0.0-0.8) K/uL Eos # (Auto) 0.1 (0.0-0.7) K/uL Baso # (Auto) 0.0 (0.0-0.1) K/uL Nucleated RBC % 0.0 /100WBC Nucleated RBCs # 0 K/uL Departure - Departure Time of Disposition: 18:51 Disposition: Home, Self-Care 01 Condition: Good Clinical Impression: UTI (urinary tract infection) Qualifiers: Urinary tract infection type: site unspecified Hematuria presence: without hematuria Qualified Code(s): N39.0 - Urinary tract infection, site not specified - Discharge Information Referrals: Philly Keith MD [Primary Care Provider] - Forms: ED Department Discharge Additional Instructions: Continue current medications as prescribed Continue Levaquin as directed he may use Azo as an adjunct therapy as you have been Reglan and Toradol prescribed to use as directed Reglan will help promote bowel movement in conjunction with MiraLAX daily Follow-up with primary care in 2 weeks sooner as needed The following information is given to patients seen in the emergency department who are being discharged to home. This information is to outline your options for follow-up care. We provide all patients seen in our emergency department with a follow-up referral. The need for follow-up, as well as the timing and circumstances, are variable depending upon the specifics of your emergency department visit. If you don't have a primary care physician on staff, we will provide you with a referral. We always advise you to contact your personal physician following an emergency department visit to inform them of the circumstance of the visit and for follow-up with them and/or the need for any referrals to a consulting specialist. The emergency department will also refer you to a specialist when appropriate. This referral assures that you have the opportunity for follow-up care with a specialist. All of these measure are taken in an effort to provide you with optimal care, which includes your follow-up. Under all circumstances we always encourage you to contact your private physician who remains a resource for coordinating your care. When calling for follow-up care, please make the office aware that this follow-up is from your recent emergency room visit. If for any reason you are refused follow-up, please contact the [facility] emergency department at and asked to speak to the emergency department charge nurse. - My Orders Last 24 Hours: My Active Orders 04/22/17 18:05 CMP [COMPREHENSIVE METABOLIC PN,CMP] [CHEM] Stat CRP [C-REACTIVE PROTEIN] [CHEM] Stat - Assessment/Plan Last 24 Hours: My Active Orders 04/22/17 18:05 CMP [COMPREHENSIVE METABOLIC PN,CMP] [CHEM] Stat CRP [C-REACTIVE PROTEIN] [CHEM] Stat
[2017-04-22 17:28] VITALS: BP 121/91
[2017-04-22 19:27] LABS: CHLORIDE,CL 109 mmol/L (98-110); SODIUM,NA 139 mmol/L (136-146)
[2017-04-22] MEDS ORDERED: Ketorolac 30 MG/ML SDV IM ONE (19:55)
== END 2017-04-22 20:30 | disposition home or self-care (01) ==
LOC: MW.ED 16:47
DX: N39.0 Urinary tract infection, site not specified (principal); F19.10 Other psychoactive substance abuse, uncomplicated; E11.9 Type 2 diabetes mellitus without complications; F17.210 Nicotine dependence, cigarettes, uncomplicated; Z76.5 Malingerer [conscious simulation]; Z79.4 Long term (current) use of insulin; Z79.899 Other long term (current) drug therapy; Z88.5 Allergy status to narcotic agent
CPT/HCPCS: 36415; 80053; 85025; 86140; 96372; 99284; J1885

== ENCOUNTER 2017-06-13 09:40 | Emergency (ER) | payer MEDICARE, OTHER ==
[2017-06-13] MEDS ORDERED: Lactated Ringers 1,000 ML IV ONE ×2 (10:05→11:20)
[2017-06-13] MEDS ORDERED: Benzocaine 20% Topical Spray UD MUCMEM ONE (10:06)
[2017-06-13] MEDS ORDERED: Sodium Chloride 0.9% 2.5 ML Syringe FLUSH PRN (10:06)
[2017-06-13] MEDS ORDERED: Lidocaine 2% Viscous Solution 15 ML Cup PO ONE (10:06)
[2017-06-13] MEDS ORDERED: Sodium Chloride 0.9% 10 ML Syringe FLUSH PRN (10:06)
[2017-06-13] MEDS ORDERED: Ketorolac 30 MG/ML SDV IVPUSH ONE (10:08)
[2017-06-13] MEDS ORDERED: Furosemide 40 MG/4 ML VIAL IVPUSH ONE (10:08)
--- NOTE | 2017-06-13 10:08 | EDM.PDOC ---
ED HPI GENERAL MEDICAL PROBLEM - General Chief Complaint: General Stated Complaint: MOUTH PAIN Time Seen by Provider: 06/13/17 10:07 Source of Information: Reports: Patient History Limitations: Reports: No Limitations - History of Present Illness INITIAL COMMENTS - FREE TEXT/NARRATIVE: HISTORY AND PHYSICAL: []41-year-old female presenting with concerns over pain mouth pain and leg swelling History of Present Illness: []Patient has been to the emergency room 4 times in the last 3 months concerns over pain and UTI. Patient was seen by dentist 4 days ago even medication for the sore in her mouth /patient states this has not helped. Patient has history of bipolar disorder is at bedside Review of Systems: As per history of present illness and below otherwise all systems reviewed and negative. Past medical history: As per history of present illness and as reviewed below otherwise noncontributory. Surgical history: As per history of present illness and as reviewed below otherwise noncontributory. Social history: No reported history of drug or alcohol abuse. Family history: As per history of present illness and as reviewed below otherwise noncontributory. Physical exam: Alert her anxious female. She is in obvious distress. She does follow commands with encouragement. HEENT: Atraumatic, normocehpalic, pupils reactive, negative for conjunctival pallor or scleral icterus, mucous membranes moist, throat clear, neck supple, nontender, trachea midline. There is a canker sore-looking lesion to the bottom of her mouth under her tongue on the left side Lungs: Clear to auscultation, breath sounds equal bilaterally, chest non tender. Heart: S1S2, regular, negative for clicks, rubs, or JVD. Abdomen: Soft, nondistended, nontender. Negative for masses or hepatossplenmegaly. Negative for costovertebral tenderness. Pelvis: Stable nontender. Genitourinary: Deferred. Rectal: Deferred Extremities: Atraumatic, negative for cords or calf pain. 2+ edema noted to her lower extremities bilaterally. Does have full range of motion. Neurovascular unremarkable. Neuro: Awake, alert, oriented. Cranial nerves II through XII unremarkable. Cerebellum unremarkable. Motor and sensory unremarkable throughout. Exam nonfocal. Diagnostics: [CBC CMP] Therapeutics: []LR 2 Impression: [Generalized pain Aphthous ulcer Peripheral edema] Plan: []Discharged to home Follow up with your primary care in 2-3 days Definitive disposition and diagnosis as appropriate pending reevaluation and review of above. Onset: Gradual Duration: Week(s): (4), Getting Worse Location: Reports: Face, Lower Extremity, Left, Lower Extremity, Right, Generalized Quality: Reports: Pressure Severity: Moderate Improves with: Reports: None Worsens with: Reports: None - Related Data Allergies Allergy/AdvReac Type Severity Reaction Status Date / Time codeine Allergy Itching Verified 04/22/17 17:14 Home Meds: Home Meds Insulin Aspart [Novolog] 10 unit SQ ASDIRECTED 04/22/17 [History] metFORMIN HCl [Metformin HCl] 1,000 mg PO DAILY PRN 04/22/17 [History] traZODone 50 mg PO BEDTIME 04/22/17 [History] Insulin Detemir [Levemir] 30 SQ TID 06/13/17 [History] Levofloxacin [Levaquin] 500 mg PO DAILY #7 tab 06/13/17 [Rx] Past Medical History - Past Health History Medical/Surgical History: Denies Medical/Surgical History HEENT History: Reports: Impaired Vision Cardiovascular History: Reports: None Respiratory History: Reports: Asthma Gastrointestinal History: Reports: Cholelithiasis, Hepatitis, Other (See Below) Other Gastrointestinal History: Gastric Ulcer Genitourinary History: Reports: UTI, Recurrent 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 - Infectious Disease History Infectious Disease History: Reports: Hepatitis C - Past Surgical History Head Surgeries/Procedures: Reports: None HEENT Surgical History: Reports: None Respiratory Surgical History: Reports: None GI Surgical History: Reports: Cholecystectomy Female Surgical History: Reports: Section, Tubal Ligation Endocrine Surgical History: Reports: None Neurological Surgical History: Reports: Lumbar Spine Musculoskeletal Surgical History: Reports: Other (See Below) Other Musculoskeletal Surgeries/Procedures:: ankle surgery, back surgery Dermatological Surgical History: Reports: None Social & Family History - Family History Family Medical History: Noncontributory - Tobacco Use Smoking Status *Q: Current Every Day Smoker Years of Tobacco use: 1 Packs/Tins Daily: 0.5 Used Tobacco, but Quit: Yes Month/Year Tobacco Last Used: August Second Hand Smoke Exposure: No - Caffeine Use Caffeine Use: Reports: Coffee Other Caffeine Use: occasional coffee, unsweetened tea - Alcohol Use Days Per Week of Alcohol Use: 0 Number of Drinks Per Day: 2 Total Drinks Per Week: 0 - Recreational Drug Use Recreational Drug Use: No Drug Use in Last 12 Months: Yes Recreational Drug Type: Reports: Cocaine, Marijuana/Hashish Recreational Drug Use Frequency: Socially ED ROS GENERAL - Review of Systems Review Of Systems: ROS reveals no pertinent complaints other than HPI. ED EXAM, GENERAL - Physical Exam Exam: See Below (see dictation) Course - Vital Signs Last Recorded V/S: Last Vital Signs Temp 37.4 C 06/13/17 10:04 Pulse 145 H 06/13/17 10:04 Resp 24 H 06/13/17 10:04 BP 124/90 06/13/17 10:04 Pulse Ox 98 06/13/17 10:04 - Orders/Labs/Meds Orders: Active Orders 24 hr Category Date Time Status Communication Order [RC] STAT Care 06/13/17 11:31 Active CULTURE URINE [RM] Stat Lab 06/13/17 10:41 Received Lactated Ringers [Ringers, Lactated] 1,000 ml Med 06/13/17 11:20 Active IV .BOLUS Sodium Chloride 0.9% [Saline Flush] Med 06/13/17 10:06 Active 10 ml FLUSH ASDIRECTED PRN Sodium Chloride 0.9% [Saline Flush] Med 06/13/17 10:06 Active 2.5 ml FLUSH ASDIRECTED PRN Saline Lock Insert [OM.PC] Stat Oth 06/13/17 10:06 Ordered Medication Orders Lactated Ringer's (Ringers, Lactated) 1,000 mls @ 999 mls/hr IV .BOLUS ONE Stop: 06/13/17 12:20 Sodium Chloride (Saline Flush) 10 ml FLUSH ASDIRECTED PRN PRN Reason: Keep Vein Open Last Admin: 06/13/17 10:21 Dose: 10 ml Sodium Chloride (Saline Flush) 2.5 ml FLUSH ASDIRECTED PRN PRN Reason: Keep Vein Open Last Admin: 06/13/17 10:21 Dose: 2.5 ml Labs: Laboratory Tests 06/13/17 06/13/17 06/13/17 Range/Units 10:20 10:20 10:45 WBC 4.42 (4.0-11.0) K/uL RBC 3.81 L (4.30-5.90) M/uL Hgb 11.4 L (12.0-16.0) g/dL Hct 34.4 L (36.0-46.0) % MCV 90.3 (80.0-98.0) fL MCH 29.9 (27.0-32.0) pg MCHC 33.1 (31.0-37.0) g/dL RDW Std Deviation 55.3 (28.0-62.0) fl RDW Coeff of Jovan 17 H (11.0-15.0) % Plt Count 36 L (150-400) K/uL MPV 10.90 (7.40-12.00) fL Neut % (Auto) 46.8 L (48.0-80.0) % Lymph % (Auto) 41.6 H (16.0-40.0) % [place] % (Auto) 8.6 (0.0-15.0) % Eos % (Auto) 2.3 (0.0-7.0) % Baso % (Auto) 0.7 (0.0-1.5) % Neut # (Auto) 2.1 (1.4-5.7) K/uL Lymph # (Auto) 1.8 (0.6-2.4) K/uL [place] # (Auto) 0.4 (0.0-0.8) K/uL Eos # (Auto) 0.1 (0.0-0.7) K/uL Baso # (Auto) 0.0 (0.0-0.1) K/uL Nucleated RBC % 0.0 /100WBC Nucleated RBCs # 0 K/uL Sodium 138 (136-145) mmol/L Potassium 3.7 (3.5-5.1) mmol/L Chloride 104 (98-107) mmol/L Carbon Dioxide 22.1 (21.0-32.0) mmol/L BUN 9 (7.0-18.0) mg/dL Creatinine 0.7 (0.6-1.0) mg/dL Est Cr Clr Drug Dosing TNP Estimated GFR (MDRD) > 60.0 ml/min Glucose 129 H (74-106) mg/dL Calcium 8.2 L (8.5-10.1) mg/dL Total Bilirubin 3.7 H (0.2-1.0) mg/dL AST 377 H (15-37) IU/L ALT 163 H (14-63) IU/L Alkaline Phosphatase 135 H (46-116) U/L Total Protein 8.1 (6.4-8.2) g/dL Albumin 2.9 L (3.4-5.0) g/dL Globulin 5.2 H (2.0-3.5) g/dL Albumin/Globulin Ratio 0.6 L (1.3-2.8) Amylase 78 (25-115) U/L Lipase 3 L (73-393) U/L HCG, Quant < 1.0 mIU/mL Urine Color YELLOW Urine Appearance CLOUDY Urine pH 6.5 (5.0-8.0) Ur Specific [place] 1.020 (1.001-1.035) Urine Protein 30 (NEGATIVE) mg/dL Urine Glucose (UA) NEGATIVE (NEGATIVE) mg/dL Urine Ketones 15 H (NEGATIVE) mg/dL Urine Occult Blood TRACE-LYSED (NEGATIVE) Urine Nitrite POSITIVE H (NEGATIVE) Urine Bilirubin MODERATE H (NEGATIVE) Urine Urobilinogen >=8.0 H (<2.0) EU/dL Ur Leukocyte Esterase SMALL (NEGATIVE) Urine RBC 0-2 (0-2/HPF) Urine WBC 12-15 (0-5/HPF) Ur Epithelial Cells MANY (NONE-FEW) Urine Bacteria 2+ H (NEGATIVE) Urine Mucus MODERATE (NONE-MOD) Salicylates <0.2 (0-20) mg/dL Meds: Medications Generic Name Dose Route Start Last Admin Trade Name Freq PRN Reason Stop Dose Admin Lactated Ringer's 1,000 mls @ 999 mls/hr 06/13/17 11:20 Ringers, Lactated IV 06/13/17 12:20 .BOLUS ONE Sodium Chloride 10 ml 06/13/17 10:06 06/13/17 10:21 Saline Flush FLUSH 10 ml ASDIRECTED PRN Administration Keep Vein Open Sodium Chloride 2.5 ml 06/13/17 10:06 06/13/17 10:21 Saline Flush FLUSH 2.5 ml ASDIRECTED PRN Administration Keep Vein Open Discontinued Medications Generic Name Dose Route Start Last Admin Trade Name Freq PRN Reason Stop Dose Admin Benzocaine 2 each 06/13/17 10:06 06/13/17 10:21 Hurricaine One 20% MUCMEM 06/13/17 10:07 2 each ONETIME ONE Administration Furosemide 20 mg 06/13/17 10:08 06/13/17 10:27 Lasix IVPUSH 06/13/17 10:09 20 mg NOW ONE Administration Lactated Ringer's 1,000 mls @ 999 mls/hr 06/13/17 10:05 06/13/17 10:27 Ringers, Lactated IV 06/13/17 11:05 999 mls/hr .BOLUS ONE Administration Ketorolac Tromethamine 30 mg 06/13/17 10:08 06/13/17 10:27 Toradol IVPUSH 06/13/17 10:09 30 mg ONETIME ONE Administration Lidocaine HCl 15 ml 06/13/17 10:06 06/13/17 10:21 Xylocaine 2% Viscous PO 06/13/17 10:07 15 ml ONETIME ONE Administration Ondansetron HCl 4 mg 06/13/17 10:45 06/13/17 11:12 Zofran IVPUSH 06/13/17 10:46 4 mg ONETIME ONE Administration Departure - Departure Time of Disposition: 11:47 Disposition: Home, Self-Care 01 Condition: Good Clinical Impression: Aphthous ulcer of mouth UTI (urinary tract infection) Qualifiers: Urinary tract infection type: site unspecified Hematuria presence: without hematuria Qualified Code(s): N39.0 - Urinary tract infection, site not specified - Discharge Information Prescriptions: Levofloxacin [Levaquin] 500 mg PO DAILY #7 tab Referrals: Philly Keith MD [Primary Care Provider] - Forms: ED Department Discharge Additional Instructions: The following information is given to patients seen in the emergency department who are being discharged to home. This information is to outline your options for follow-up care. We provide all patients seen in our emergency department with a follow-up referral. The need for follow-up, as well as the timing and circumstances, are variable depending upon the specifics of your emergency department visit. If you don't have a primary care physician on staff, we will provide you with a referral. We always advise you to contact your personal physician following an emergency department visit to inform them of the circumstance of the visit and for follow-up with them and/or the need for any referrals to a consulting specialist. The emergency department will also refer you to a specialist when appropriate. This referral assures that you have the opportunity for followup care with a specialist. All of these measure are taken in an effort to provide you with optimal care, which includes your followup. Under all circumstances we always encourage you to contact your private physician who remains a resource for coordinating your care. When calling for followup care, please make the office aware that this follow-up is from your recent emergency room visit. If for any reason you are refused follow-up, please contact the [facility] emergency department at and asked to speak to the emergency department charge nurse. Follow-up with your primary care provider in 2-3 days You're found to have aphthous ulcer in her mouth You were found to have continued UTI You have peripheral edema You may find some relief to your mouth pain with the dental balls that we gave you also rinsing and spitting Mylanta this will help coat the area and allow it to heal - My Orders Last 24 Hours: My Active Orders 06/13/17 10:06 Sodium Chloride 0.9% [Saline Flush] 10 ml FLUSH ASDIRECTED PRN Sodium Chloride 0.9% [Saline Flush] 2.5 ml FLUSH ASDIRECTED PRN Saline Lock Insert [OM.PC] Stat 06/13/17 10:41 CULTURE URINE [RM] Stat 06/13/17 11:20 Lactated Ringers [Ringers, Lactated] 1,000 ml IV .BOLUS 06/13/17 11:31 Communication Order [RC] STAT - Assessment/Plan Last 24 Hours: My Active Orders 06/13/17 10:06 Sodium Chloride 0.9% [Saline Flush] 10 ml FLUSH ASDIRECTED PRN Sodium Chloride 0.9% [Saline Flush] 2.5 ml FLUSH ASDIRECTED PRN Saline Lock Insert [OM.PC] Stat 06/13/17 10:41 CULTURE URINE [RM] Stat 06/13/17 11:20 Lactated Ringers [Ringers, Lactated] 1,000 ml IV .BOLUS 06/13/17 11:31 Communication Order [RC] STAT
[2017-06-13 10:09] VITALS: BP 124/90
[2017-06-13] MEDS ORDERED: Ondansetron 4 MG/2 ML SDV IVPUSH ONE (10:45)
[2017-06-13 11:11] LABS: CHLORIDE,CL 104 mmol/L (98-107); SODIUM,NA 138 mmol/L (136-145)
== END 2017-06-13 12:51 | disposition home or self-care (01) ==
LOC: EEVIPCON 09:40 → MW.ED 09:40
DX: K12.0 Recurrent oral aphthae (principal); N39.0 Urinary tract infection, site not specified; E11.9 Type 2 diabetes mellitus without complications; J45.909 Unspecified asthma, uncomplicated; F17.210 Nicotine dependence, cigarettes, uncomplicated; Z88.5 Allergy status to narcotic agent; Z79.4 Long term (current) use of insulin; Z86.19 Personal history of other infectious and parasitic diseases; Z87.440 Personal history of urinary (tract) infections
CPT/HCPCS: 36415; 80053; 81001; 82150; 83690; 84702; 85025; 87086; 87088; 87186; 96361; 96374; 96375; 99284; A9270; G0480; J1885; J1940; J2405; J7120; 99283

== ENCOUNTER 2017-06-22 06:52 | Emergency (ER) | payer MEDICARE, OTHER ==
[2017-06-22] MEDS ORDERED: Pantoprazole 40 MG Vial IVPUSH ONE (07:02)
[2017-06-22] MEDS ORDERED: Ondansetron 4 MG/2 ML SDV IVPUSH ONE (07:02)
[2017-06-22] MEDS ORDERED: Sodium Chloride 0.9% 1,000 ML IV ONE (07:02)
--- NOTE | 2017-06-22 07:06 | EDM.PDOC ---
ED HPI GENERAL MEDICAL PROBLEM - General Chief Complaint: Abdominal Pain Stated Complaint: AMBULANCE Time Seen by Provider: 06/22/17 06:59 - History of Present Illness INITIAL COMMENTS - FREE TEXT/NARRATIVE: HISTORY AND PHYSICAL: History of present illness: Patient's 41-year-old female with history of diabetes presents with concern of vomiting abdominal pain who also states she's had black tarry stool is been worse over the last several days she denies fever chills denies urinary symptoms or other concern she presents by ambulance. Review of systems: As per history of present illness and below otherwise all systems reviewed and negative. Past medical history: As per history of present illness and as reviewed below otherwise noncontributory. Surgical history: As per history of present illness and as reviewed below otherwise noncontributory. Social history: No reported history of drug or alcohol abuse. Family history: As per history of present illness and as reviewed below otherwise noncontributory. Physical exam: HEENT: Atraumatic, normocephalic, pupils reactive, negative for conjunctival pallor or scleral icterus, mucous membranes dry, throat clear, neck supple, nontender, trachea midline. Lungs: Clear to auscultation, breath sounds equal bilaterally, chest nontender. Heart: S1S2, regular, negative for clicks, rubs, or JVD. Abdomen: Soft, nondistended, diffuse tenderness no rebound no guarding. Negative for masses or hepatosplenomegaly. Negative for costovertebral tenderness. Pelvis: Stable nontender. Genitourinary: Deferred. Rectal: Deferred. Extremities: Atraumatic, negative for cords or calf pain. Neurovascular unremarkable. Neuro: Awake, alert, oriented. Cranial nerves II through XII unremarkable. Cerebellum unremarkable. Motor and sensory unremarkable throughout. Exam nonfocal. Diagnostics: CBC CMP amylase lipase hCG UA blood culture 2 CT abdomen and pelvis EKG chest x -ray Therapeutics: Normal saline Protonix 80 mg IV Impression: #1 diabetes #2 abdominal pain #3 vomiting with dehydration Definitive disposition and diagnosis as appropriate pending reevaluation and review of above. RUQ abd Pain Score (Numeric/FACES): 10 - Related Data Allergies Allergy/AdvReac Type Severity Reaction Status Date / Time codeine Allergy Itching Verified 06/22/17 06:57 Home Meds: Home Meds Insulin Aspart [Novolog] 10 unit SQ ASDIRECTED 04/22/17 [History] traZODone 50 mg PO BEDTIME 04/22/17 [History] Insulin Detemir [Levemir] 30 units SQ TID 06/13/17 [History] Levofloxacin [Levaquin] 500 mg PO DAILY #7 tab 06/13/17 [Rx] Past Medical History - Past Health History Medical/Surgical History: Denies Medical/Surgical History HEENT History: Reports: Impaired Vision Cardiovascular History: Reports: None Respiratory History: Reports: Asthma Gastrointestinal History: Reports: Cholelithiasis, Hepatitis, Other (See Below) Other Gastrointestinal History: Gastric Ulcer Genitourinary History: Reports: UTI, Recurrent [employer] History: Reports: Musculoskeletal History: Reports: None Other Musculoskeletal History: Herniated disk, lumbar fracture, fractured right ankle Neurological History: Reports: Concussion, Other (See Below) Other Neuro History: 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 - Infectious Disease History Infectious Disease History: Reports: Hepatitis C - Past Surgical History Head Surgeries/Procedures: Reports: None HEENT Surgical History: Reports: None Respiratory Surgical History: Reports: None GI Surgical History: Reports: Cholecystectomy Female Surgical History: Reports: Section, Tubal Ligation Endocrine Surgical History: Reports: None Neurological Surgical History: Reports: Lumbar Spine Musculoskeletal Surgical History: Reports: Other (See Below) Other Musculoskeletal Surgeries/Procedures:: ankle surgery, back surgery Dermatological Surgical History: Reports: None Social & Family History - Family History Family Medical History: Noncontributory - Tobacco Use Smoking Status *Q: Current Every Day Smoker Years of Tobacco use: 1 Packs/Tins Daily: 0.5 Used Tobacco, but Quit: Yes Month/Year Tobacco Last Used: August Second Hand Smoke Exposure: No - Caffeine Use Caffeine Use: Reports: Coffee Other Caffeine Use: occasional coffee, unsweetened tea - Alcohol Use Days Per Week of Alcohol Use: 0 Number of Drinks Per Day: 2 Total Drinks Per Week: 0 - Recreational Drug Use Recreational Drug Use: No Drug Use in Last 12 Months: Yes Recreational Drug Type: Reports: Cocaine, Marijuana/Hashish Recreational Drug Use Frequency: Socially ED ROS GENERAL - Review of Systems Review Of Systems: ROS reveals no pertinent complaints other than HPI. ED EXAM, GENERAL - Physical Exam Exam: See Below (See dictation) Course - Vital Signs Last Recorded V/S: Last Vital Signs Temp 36.9 C 06/22/17 07:00 Pulse 92 06/22/17 08:43 Resp 20 06/22/17 08:43 BP 125/50 L 06/22/17 08:43 Pulse Ox 100 06/22/17 08:43 - Orders/Labs/Meds Orders: Active Orders 24 hr Category Date Time Status EKG Documentation Completion [RC] STAT Care 06/22/17 07:01 Active Pulse Oximetry [RC] ASDIRECTED Care 06/22/17 07:01 Active CULTURE BLOOD [BC] Stat Lab 06/22/17 07:18 Received CULTURE BLOOD [BC] Stat Lab 06/22/17 07:27 Received DRUG SCREEN, URINE [URCHEM] Stat Lab 06/22/17 08:30 Ordered INFLUENZA A+B AG SCREEN [RM] Stat Lab 06/22/17 08:05 Ordered TYPE AND SCREEN [BBK] Stat Lab 06/22/17 07:18 Received UA W/O MICROSCOPIC [URIN] Stat Lab 06/22/17 08:30 Ordered Pantoprazole [ProTONIX IV] 80 mg Med 06/22/17 09:00 Active Sodium Chloride 0.9% [Normal Saline] 100 ml IV Q10H Blood Culture x2 Reflex Set [OM.PC] Stat Oth 06/22/17 07:02 Ordered Medication Orders Pantoprazole Sodium 80 mg/ (Sodium Chloride) 100 mls @ 10 mls/hr IV Q10H ONE Stop: 06/22/17 18:59 Last Admin: 06/22/17 09:15 Dose: 10 mls/hr Labs: Laboratory Tests 06/22/17 06/22/17 06/22/17 Range/Units 07:18 07:18 07:18 WBC 2.99 L (4.0-11.0) K/uL RBC 2.48 L (4.30-5.90) M/uL Hgb 7.3 L (12.0-16.0) g/dL Hct 22.2 L (36.0-46.0) % MCV 89.5 (80.0-98.0) fL MCH 29.4 (27.0-32.0) pg MCHC 32.9 (31.0-37.0) g/dL RDW Std Deviation 63.4 H (28.0-62.0) fl RDW Coeff of Jovan 20 H (11.0-15.0) % Plt Count 35 L (150-400) K/uL MPV 11.40 (7.40-12.00) fL Neut % (Auto) 44.8 L (48.0-80.0) % Lymph % (Auto) 41.8 H (16.0-40.0) % [place] % (Auto) 10.4 (0.0-15.0) % Eos % (Auto) 2.3 (0.0-7.0) % Baso % (Auto) 0.7 (0.0-1.5) % Neut # (Auto) 1.3 L (1.4-5.7) K/uL Lymph # (Auto) 1.3 (0.6-2.4) K/uL [place] # (Auto) 0.3 (0.0-0.8) K/uL Eos # (Auto) 0.1 (0.0-0.7) K/uL Baso # (Auto) 0.0 (0.0-0.1) K/uL Nucleated RBC % 0.0 /100WBC Nucleated RBCs # 0 K/uL INR 1.56 Sodium 134 L (136-145) mmol/L Potassium 3.3 L (3.5-5.1) mmol/L Chloride 102 (98-107) mmol/L Carbon Dioxide 23.8 (21.0-32.0) mmol/L BUN 13 (7.0-18.0) mg/dL Creatinine 0.9 (0.6-1.0) mg/dL Est Cr Clr Drug Dosing 80.80 mL/min Estimated GFR (MDRD) > 60.0 ml/min Glucose 154 H (74-106) mg/dL Calcium 7.5 L (8.5-10.1) mg/dL Total Bilirubin 3.4 H (0.2-1.0) mg/dL AST 200 H (15-37) IU/L ALT 110 H (14-63) IU/L Alkaline Phosphatase 124 H (46-116) U/L Total Protein 6.2 L (6.4-8.2) g/dL Albumin 2.1 L (3.4-5.0) g/dL Globulin 4.1 H (2.0-3.5) g/dL Albumin/Globulin Ratio 0.5 L (1.3-2.8) Amylase 64 (25-115) U/L Lipase 111 (73-393) U/L HCG, Qual (NEG) Urine Color Urine Appearance Urine pH (5.0-8.0) Ur Specific [place] (1.001-1.035) Urine Protein (NEGATIVE) mg/dL Urine Glucose (UA) (NEGATIVE) mg/dL Urine Ketones (NEGATIVE) mg/dL Urine Occult Blood (NEGATIVE) Urine Nitrite (NEGATIVE) Urine Bilirubin (NEGATIVE) Urine Ictotest Urine Urobilinogen (<2.0) EU/dL Ur Leukocyte Esterase (NEGATIVE) Urine Opiates Screen (NEGATIVE) Ur Oxycodone Screen (NEGATIVE) Urine Methadone Screen (NEGATIVE) Ur Barbiturates Screen (NEGATIVE) Ur Phencyclidine Scrn (NEGATIVE) Ur Amphetamine Screen (NEGATIVE) U Methamphetamines Scrn (NEGATIVE) U Benzodiazepines Scrn (NEGATIVE) U Cocaine Metab Screen (NEGATIVE) U Marijuana (THC) Screen (NEGATIVE) Ethyl Alcohol <3 mg/dL 06/22/17 06/22/17 06/22/17 Range/Units 07:18 08:30 08:30 WBC (4.0-11.0) K/uL RBC (4.30-5.90) M/uL Hgb (12.0-16.0) g/dL Hct (36.0-46.0) % MCV (80.0-98.0) fL MCH (27.0-32.0) pg MCHC (31.0-37.0) g/dL RDW Std Deviation (28.0-62.0) fl RDW Coeff of Jovan (11.0-15.0) % Plt Count (150-400) K/uL MPV (7.40-12.00) fL Neut % (Auto) (48.0-80.0) % Lymph % (Auto) (16.0-40.0) % [place] % (Auto) (0.0-15.0) % Eos % (Auto) (0.0-7.0) % Baso % (Auto) (0.0-1.5) % Neut # (Auto) (1.4-5.7) K/uL Lymph # (Auto) (0.6-2.4) K/uL [place] # (Auto) (0.0-0.8) K/uL Eos # (Auto) (0.0-0.7) K/uL Baso # (Auto) (0.0-0.1) K/uL Nucleated RBC % /100WBC Nucleated RBCs # K/uL INR Sodium (136-145) mmol/L Potassium (3.5-5.1) mmol/L Chloride (98-107) mmol/L Carbon Dioxide (21.0-32.0) mmol/L BUN (7.0-18.0) mg/dL Creatinine (0.6-1.0) mg/dL Est Cr Clr Drug Dosing mL/min Estimated GFR (MDRD) ml/min Glucose (74-106) mg/dL Calcium (8.5-10.1) mg/dL Total Bilirubin (0.2-1.0) mg/dL AST (15-37) IU/L ALT (14-63) IU/L Alkaline Phosphatase (46-116) U/L Total Protein (6.4-8.2) g/dL Albumin (3.4-5.0) g/dL Globulin (2.0-3.5) g/dL Albumin/Globulin Ratio (1.3-2.8) Amylase (25-115) U/L Lipase (73-393) U/L HCG, Qual NEGATIVE (NEG) Urine Color YELLOW Urine Appearance CLEAR Urine pH 6.5 (5.0-8.0) Ur Specific [place] 1.020 (1.001-1.035) Urine Protein TRACE (NEGATIVE) mg/dL Urine Glucose (UA) NEGATIVE (NEGATIVE) mg/dL Urine Ketones TRACE H (NEGATIVE) mg/dL Urine Occult Blood NEGATIVE (NEGATIVE) Urine Nitrite NEGATIVE (NEGATIVE) Urine Bilirubin MODERATE H (NEGATIVE) Urine Ictotest POSITIVE Urine Urobilinogen 2.0 H (<2.0) EU/dL Ur Leukocyte Esterase NEGATIVE (NEGATIVE) Urine Opiates Screen NEGATIVE (NEGATIVE) Ur Oxycodone Screen NEGATIVE (NEGATIVE) Urine Methadone Screen NEGATIVE (NEGATIVE) Ur Barbiturates Screen NEGATIVE (NEGATIVE) Ur Phencyclidine Scrn NEGATIVE (NEGATIVE) Ur Amphetamine Screen NEGATIVE (NEGATIVE) U Methamphetamines Scrn NEGATIVE (NEGATIVE) U Benzodiazepines Scrn NEGATIVE (NEGATIVE) U Cocaine Metab Screen NEGATIVE (NEGATIVE) U Marijuana (THC) Screen NEGATIVE (NEGATIVE) Ethyl Alcohol mg/dL Meds: Medications Generic Name Dose Route Start Last Admin Trade Name Freq PRN Reason Stop Dose Admin Pantoprazole Sodium 80 mg/ 100 mls @ 10 mls/hr 06/22/17 09:00 06/22/17 09:15 Sodium Chloride IV 06/22/17 18:59 10 mls/hr Q10H ONE Administration Discontinued Medications Generic Name Dose Route Start Last Admin Trade Name Freq PRN Reason Stop Dose Admin Sodium Chloride 1,000 mls @ 999 mls/hr 06/22/17 07:02 06/22/17 07:36 Normal Saline IV 06/22/17 08:02 999 mls/hr STAT ONE Administration Pantoprazole Sodium 80 mg/ 100 mls @ 10 mls/hr 06/22/17 08:55 06/22/17 09:32 Sodium Chloride IV 06/22/17 18:54 Not Given .Continuous ONE Morphine Sulfate 2 mg 06/22/17 09:09 06/22/17 09:15 Morphine IVPUSH 06/22/17 09:10 2 mg ONETIME ONE Administration Morphine Sulfate 2 mg 06/22/17 09:10 06/22/17 09:19 Morphine IVPUSH 06/22/17 09:11 Not Given ONETIME ONE Ondansetron HCl 4 mg 06/22/17 07:02 06/22/17 07:36 Zofran IVPUSH 06/22/17 07:03 4 mg ONETIME ONE Administration Pantoprazole Sodium 80 mg 06/22/17 07:02 06/22/17 07:36 Protonix Iv IVPUSH 06/22/17 07:03 80 mg .BOLUS ONE Administration Departure - Departure Time of Disposition: 09:48 Disposition: Refer to Observation Condition: Good Clinical Impression: Anemia Abdominal pain Qualifiers: Abdominal location: generalized Qualified Code(s): R10.84 - Generalized abdominal pain - Discharge Information Referrals: Smitha Church CRNA [Primary Care Provider] - Forms: ED Department Discharge - My Orders Last 24 Hours: My Active Orders 06/22/17 07:01 EKG Documentation Completion [RC] STAT Pulse Oximetry [RC] ASDIRECTED 06/22/17 07:02 Blood Culture x2 Reflex Set [OM.PC] Stat 06/22/17 07:18 CULTURE BLOOD [BC] Stat TYPE AND SCREEN [BBK] Stat 06/22/17 07:27 CULTURE BLOOD [BC] Stat 06/22/17 08:05 INFLUENZA A+B AG SCREEN [RM] Stat 06/22/17 08:30 DRUG SCREEN, URINE [URCHEM] Stat UA W/O MICROSCOPIC [URIN] Stat 06/22/17 09:00 Pantoprazole [ProTONIX IV] 80 mg Sodium Chloride 0.9% [Normal Saline] 100 ml IV Q10H - Assessment/Plan Last 24 Hours: My Active Orders 06/22/17 07:01 EKG Documentation Completion [RC] STAT Pulse Oximetry [RC] ASDIRECTED 06/22/17 07:02 Blood Culture x2 Reflex Set [OM.PC] Stat 06/22/17 07:18 CULTURE BLOOD [BC] Stat TYPE AND SCREEN [BBK] Stat 06/22/17 07:27 CULTURE BLOOD [BC] Stat 06/22/17 08:05 INFLUENZA A+B AG SCREEN [RM] Stat 06/22/17 08:30 DRUG SCREEN, URINE [URCHEM] Stat UA W/O MICROSCOPIC [URIN] Stat 06/22/17 09:00 Pantoprazole [ProTONIX IV] 80 mg Sodium Chloride 0.9% [Normal Saline] 100 ml IV Q10H
[2017-06-22] MEDS ORDERED: Pantoprazole 80 MG in Sodium Chloride 0.9% 100 ML IV SCH (07:15)
[2017-06-22 08:07] LABS: CHLORIDE,CL 102 mmol/L (98-107); SODIUM,NA 134 mmol/L (136-145)
--- NOTE | 2017-06-22 08:42 | CR ---
EXAMINATION: PA chest radiograph. HISTORY: Shortness of breath. FINDINGS: The trachea is midline. The cardiomediastinal silhouette is within normal limits. No pulmonary infilt rates, effusions or pneumothorax. Osseous structures appear unremarkable. IMPRESSION: No acute cardiopulmonary process.
--- NOTE | 2017-06-22 08:49 | CT ---
CT of the abdomen and pelvis without contrast. HISTORY: Pain TECHNIQUE: Axial CT images were obtained of the abdomen and pelvis without contrast. Coronal and sagi ttal reconstructions obtained. FINDINGS: The lung bases are clear, no pleural effusion. The blood volume within the heart is hypodense relativ e to the myocardium. The liver has a mildly nodular contour. Several tiny hypodensities noted within the liver, likely cys ts. Spleen is enlarged. There is a small amount of abdominal ascites. Cholecystectomy clips are noted . The pancreas and adrenal glands are normal. No bulky retroperitoneal lymphadenopathy. There are no calcifications noted within the kidneys or along the courses of the ureters bilaterally. The large and small bowel are normal in caliber without evidence of obstruction. The appendix appears normal. There is no bulky pelvic lymphadenopathy. . No free air. The urinary bladder appears normal. Tiny right ovarian cyst. Endplate sclerosis noted at L4-L5. Suspicious osseous abnormalities. IMPRESSION: 1. Mildly nodular contour of the liver likely representing cirrhosis. 2. Mild to moderate splenomegaly. 3. Small amount of abdominal ascites. 4. Hypodense blood relative to myocardium suggestive of anemia.
[2017-06-22] MEDS ORDERED: Pantoprazole 80 MG in Sodium Chloride 0.9% 100 ML IV ONE ×2 (08:55→09:00)
[2017-06-22] MEDS ORDERED: Morphine 4 MG/ML Syringe IVPUSH ONE ×3 (09:09→11:03)
[2017-06-22] MEDS ORDERED: Sodium Chloride 0.9% 1,000 ML IV SCH (10:15)
--- NOTE | 2017-06-22 11:05 | PCM.HP ---
H&P History of Present Illness - General Admit Problem/Dx: Admission Diagnosis/Problem Admission Diagnosis/Problem Abdominal pain - History of Present Illness Initial Comments - Free Text/Narative: 41 yo female with pmh of hepatitis C and liver cirrhosis who presents with several day history of diffuse abdominal pain. patient reports vomiting up red blood two days ago with pieces of clotted blood. Afterwords she had dark stools. She presented to the ED today. Rectal exam performed in ED reported little stool which was hemocult negative. Hgb was noted to be 7.3. Hgb on 06.13 was 11.4. Platelet count was 35,000 RUQ abd Pain Score (Numeric/FACES): 10 - Related Data Allergies/Adverse Reactions: Allergies Allergy/AdvReac Type Severity Reaction Status Date / Time codeine Allergy Itching Verified 06/22/17 06:57 Home Medications: Home Meds Insulin Aspart [Novolog] 10 unit SQ ASDIRECTED 04/22/17 [History] traZODone 50 mg PO BEDTIME 04/22/17 [History] Insulin Detemir [Levemir] 30 units SQ TID 06/13/17 [History] Levofloxacin [Levaquin] 500 mg PO DAILY #7 tab 06/13/17 [Rx] Past Medical History - Past Health History Medical/Surgical History: Denies Medical/Surgical History HEENT History: Reports: Impaired Vision Cardiovascular History: Reports: None Respiratory History: Reports: Asthma Gastrointestinal History: Reports: Cholelithiasis, Hepatitis, Other (See Below) Other Gastrointestinal History: Gastric Ulcer, pancreatitis? 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 - Infectious Disease History Infectious Disease History: Reports: Hepatitis C - Past Surgical History Head Surgeries/Procedures: Reports: None HEENT Surgical History: Reports: None Respiratory Surgical History: Reports: None GI Surgical History: Reports: Cholecystectomy Female Surgical History: Reports: Section, Tubal Ligation Endocrine Surgical History: Reports: None Neurological Surgical History: Reports: Lumbar Spine Musculoskeletal Surgical History: Reports: Other (See Below) Other Musculoskeletal Surgeries/Procedures:: ankle surgery, back surgery Dermatological Surgical History: Reports: None Social & Family History - Family History Family Medical History: Noncontributory - Tobacco Use Smoking Status *Q: Current Every Day Smoker Years of Tobacco use: 1 Packs/Tins Daily: 0.5 Used Tobacco, but Quit: Yes Month/Year Tobacco Last Used: August Second Hand Smoke Exposure: No - Caffeine Use Caffeine Use: Reports: Coffee Other Caffeine Use: occasional coffee, unsweetened tea - Alcohol Use Days Per Week of Alcohol Use: 0 Number of Drinks Per Day: 2 Total Drinks Per Week: 0 - Recreational Drug Use Recreational Drug Use: No Drug Use in Last 12 Months: Yes Recreational Drug Type: Reports: Cocaine, Marijuana/Hashish Recreational Drug Use Frequency: Socially H&P Review of Systems - Review of Systems: Review Of Systems: ROS reveals no pertinent complaints other than HPI. Exam - Exam Exam: See Below - Vital Signs Vital Signs: Last Vital Signs Temp 36.9 C 06/22/17 07:00 Pulse 94 06/22/17 10:00 Resp 18 06/22/17 10:00 BP 118/58 L 06/22/17 10:00 Pulse Ox 97 06/22/17 10:00 Orthostatic Blood Pressure [ 130/77 Standing] Orthostatic Blood Pressure [ 115/54 Sitting] Orthostatic Blood Pressure [ 116/78 Supine] Weight: 83.915 kg - Exam General: Alert, Oriented HEENT: Mucosa Moist & [place] Lungs: Clear to Auscultation, Normal Respiratory Effort Cardiovascular: Regular Rate, Regular Rhythm GI/Abdominal Exam: Normal Bowel Sounds, Soft, Non-Tender, No Distention Extremities: No Pedal Edema Skin: Warm, Dry, Intact - Patient Data Lab Results Last 24 hrs: Laboratory Results - last 24 hr 06/22/17 06/22/17 06/22/17 Range/Units 07:18 07:18 07:18 WBC 2.99 L (4.0-11.0) K/uL RBC 2.48 L (4.30-5.90) M/uL Hgb 7.3 L (12.0-16.0) g/dL Hct 22.2 L (36.0-46.0) % MCV 89.5 (80.0-98.0) fL MCH 29.4 (27.0-32.0) pg MCHC 32.9 (31.0-37.0) g/dL RDW Std Deviation 63.4 H (28.0-62.0) fl RDW Coeff of Jovan 20 H (11.0-15.0) % Plt Count 35 L (150-400) K/uL MPV 11.40 (7.40-12.00) fL Neut % (Auto) 44.8 L (48.0-80.0) % Lymph % (Auto) 41.8 H (16.0-40.0) % [place] % (Auto) 10.4 (0.0-15.0) % Eos % (Auto) 2.3 (0.0-7.0) % Baso % (Auto) 0.7 (0.0-1.5) % Neut # (Auto) 1.3 L (1.4-5.7) K/uL Lymph # (Auto) 1.3 (0.6-2.4) K/uL [place] # (Auto) 0.3 (0.0-0.8) K/uL Eos # (Auto) 0.1 (0.0-0.7) K/uL Baso # (Auto) 0.0 (0.0-0.1) K/uL Nucleated RBC % 0.0 /100WBC Nucleated RBCs # 0 K/uL INR 1.56 Sodium 134 L (136-145) mmol/L Potassium 3.3 L (3.5-5.1) mmol/L Chloride 102 (98-107) mmol/L Carbon Dioxide 23.8 (21.0-32.0) mmol/L BUN 13 (7.0-18.0) mg/dL Creatinine 0.9 (0.6-1.0) mg/dL Est Cr Clr Drug Dosing 80.80 mL/min Estimated GFR (MDRD) > 60.0 ml/min Glucose 154 H (74-106) mg/dL Calcium 7.5 L (8.5-10.1) mg/dL Total Bilirubin 3.4 H (0.2-1.0) mg/dL AST 200 H (15-37) IU/L ALT 110 H (14-63) IU/L Alkaline Phosphatase 124 H (46-116) U/L Total Protein 6.2 L (6.4-8.2) g/dL Albumin 2.1 L (3.4-5.0) g/dL Globulin 4.1 H (2.0-3.5) g/dL Albumin/Globulin Ratio 0.5 L (1.3-2.8) Amylase 64 (25-115) U/L Lipase 111 (73-393) U/L HCG, Qual (NEG) Urine Color Urine Appearance Urine pH (5.0-8.0) Ur Specific [place] (1.001-1.035) Urine Protein (NEGATIVE) mg/dL Urine Glucose (UA) (NEGATIVE) mg/dL Urine Ketones (NEGATIVE) mg/dL Urine Occult Blood (NEGATIVE) Urine Nitrite (NEGATIVE) Urine Bilirubin (NEGATIVE) Urine Ictotest Urine Urobilinogen (<2.0) EU/dL Ur Leukocyte Esterase (NEGATIVE) Urine Opiates Screen (NEGATIVE) Ur Oxycodone Screen (NEGATIVE) Urine Methadone Screen (NEGATIVE) Ur Barbiturates Screen (NEGATIVE) Ur Phencyclidine Scrn (NEGATIVE) Ur Amphetamine Screen (NEGATIVE) U Methamphetamines Scrn (NEGATIVE) U Benzodiazepines Scrn (NEGATIVE) U Cocaine Metab Screen (NEGATIVE) U Marijuana (THC) Screen (NEGATIVE) Ethyl Alcohol <3 mg/dL 06/22/17 06/22/17 06/22/17 Range/Units 07:18 08:30 08:30 WBC (4.0-11.0) K/uL RBC (4.30-5.90) M/uL Hgb (12.0-16.0) g/dL Hct (36.0-46.0) % MCV (80.0-98.0) fL MCH (27.0-32.0) pg MCHC (31.0-37.0) g/dL RDW Std Deviation (28.0-62.0) fl RDW Coeff of Jovan (11.0-15.0) % Plt Count (150-400) K/uL MPV (7.40-12.00) fL Neut % (Auto) (48.0-80.0) % Lymph % (Auto) (16.0-40.0) % [place] % (Auto) (0.0-15.0) % Eos % (Auto) (0.0-7.0) % Baso % (Auto) (0.0-1.5) % Neut # (Auto) (1.4-5.7) K/uL Lymph # (Auto) (0.6-2.4) K/uL [place] # (Auto) (0.0-0.8) K/uL Eos # (Auto) (0.0-0.7) K/uL Baso # (Auto) (0.0-0.1) K/uL Nucleated RBC % /100WBC Nucleated RBCs # K/uL INR Sodium (136-145) mmol/L Potassium (3.5-5.1) mmol/L Chloride (98-107) mmol/L Carbon Dioxide (21.0-32.0) mmol/L BUN (7.0-18.0) mg/dL Creatinine (0.6-1.0) mg/dL Est Cr Clr Drug Dosing mL/min Estimated GFR (MDRD) ml/min Glucose (74-106) mg/dL Calcium (8.5-10.1) mg/dL Total Bilirubin (0.2-1.0) mg/dL AST (15-37) IU/L ALT (14-63) IU/L Alkaline Phosphatase (46-116) U/L Total Protein (6.4-8.2) g/dL Albumin (3.4-5.0) g/dL Globulin (2.0-3.5) g/dL Albumin/Globulin Ratio (1.3-2.8) Amylase (25-115) U/L Lipase (73-393) U/L HCG, Qual NEGATIVE (NEG) Urine Color YELLOW Urine Appearance CLEAR Urine pH 6.5 (5.0-8.0) Ur Specific [place] 1.020 (1.001-1.035) Urine Protein TRACE (NEGATIVE) mg/dL Urine Glucose (UA) NEGATIVE (NEGATIVE) mg/dL Urine Ketones TRACE H (NEGATIVE) mg/dL Urine Occult Blood NEGATIVE (NEGATIVE) Urine Nitrite NEGATIVE (NEGATIVE) Urine Bilirubin MODERATE H (NEGATIVE) Urine Ictotest POSITIVE Urine Urobilinogen 2.0 H (<2.0) EU/dL Ur Leukocyte Esterase NEGATIVE (NEGATIVE) Urine Opiates Screen NEGATIVE (NEGATIVE) Ur Oxycodone Screen NEGATIVE (NEGATIVE) Urine Methadone Screen NEGATIVE (NEGATIVE) Ur Barbiturates Screen NEGATIVE (NEGATIVE) Ur Phencyclidine Scrn NEGATIVE (NEGATIVE) Ur Amphetamine Screen NEGATIVE (NEGATIVE) U Methamphetamines Scrn NEGATIVE (NEGATIVE) U Benzodiazepines Scrn NEGATIVE (NEGATIVE) U Cocaine Metab Screen NEGATIVE (NEGATIVE) U Marijuana (THC) Screen NEGATIVE (NEGATIVE) Ethyl Alcohol mg/dL Result Diagrams: 06/22/17 07:18 06/22/17 07:18 Jason Results Last 24 hrs: Microbiology 06/22/17 08:05 Influenza Type A Antigen Screen - Final Nasopharyngeal Swab NEGATIVE INFLUENZA A VIRUS AG Influenza Type B Antigen Screen - Final NEGATIVE INFLUENZA B VIRUS AG Problem List Initiated/Reviewed/Updated: Yes Orders Last 24hrs: Active Orders 24 hr Category Date Time Status Patient Status [ADT] Stat ADT 06/22/17 09:51 Active EKG Documentation Completion [RC] STAT Care 06/22/17 07:01 Active Pulse Oximetry [RC] ASDIRECTED Care 06/22/17 07:01 Active CULTURE BLOOD [BC] Stat Lab 06/22/17 07:18 Received CULTURE BLOOD [BC] Stat Lab 06/22/17 07:27 Received DRUG SCREEN, URINE [URCHEM] Stat Lab 06/22/17 08:30 Ordered INFLUENZA A+B AG SCREEN [RM] Stat Lab 06/22/17 08:05 Ordered RED BLOOD CELLS LP [BBK] Stat Lab 06/22/17 10:58 Ordered TYPE AND SCREEN [BBK] Stat Lab 06/22/17 07:18 Received UA W/O MICROSCOPIC [URIN] Stat Lab 06/22/17 08:30 Ordered Pantoprazole [ProTONIX IV] 80 mg Med 06/22/17 09:00 Active Sodium Chloride 0.9% [Normal Saline] 100 ml IV Q10H Sodium Chloride 0.9% [Normal Saline] 1,000 ml Med 06/22/17 10:15 Active IV ASDIRECTED Blood Culture x2 Reflex Set [OM.PC] Stat Oth 06/22/17 07:02 Ordered Transfuse Red Blood Cells [COMM] Stat Oth 06/22/17 10:58 Ordered Medication Orders Pantoprazole Sodium 80 mg/ (Sodium Chloride) 100 mls @ 10 mls/hr IV Q10H ONE Stop: 06/22/17 18:59 Last Admin: 06/22/17 09:15 Dose: 10 mls/hr Sodium Chloride (Normal Saline) 1,000 mls @ 125 mls/hr IV ASDIRECTED JOYCE Last Admin: 06/22/17 10:12 Dose: 125 mls/hr Assessment/Plan Comment:: 41 yo female with pmh of hepatitis C and liver cirrhosis who presents with upper GI bleed. Patient likely had an acute bleed two days ago. She is currently hemodynamically stable. I spoke with Dr. Barrios the GI specialist in [place] regarding low platelets, need for transfusion and timing of endoscopy. He recommending transferring. I spoke with Dr. Burgos the ED physician who has accepted the patient. Will start one unit of pRBC in route during transfer.
[2017-06-22 13:26] VITALS: BP 110/58
== END 2017-06-22 12:30 | disposition other institution (70) ==
LOC: MW.ED 06:52
DX: R10.11 Right upper quadrant pain (principal); R10.84 Generalized abdominal pain; D64.9 Anemia, unspecified; F17.210 Nicotine dependence, cigarettes, uncomplicated; E11.9 Type 2 diabetes mellitus without complications; Z79.4 Long term (current) use of insulin; Z79.899 Other long term (current) drug therapy; Z88.5 Allergy status to narcotic agent
CPT/HCPCS: 36415; 36430; 71045; 74176; 80053; 80305; 81003; 82150; 83690; 84703; 85025; 85610; 86850; 86870; 86900; 86901; 86902; 86920; 86921; 86922; 87040; 87804; 93005; 96361; 96365; 96366; 96375; 96376; 99285; C9113; G0480; J2270; J2405; J7030; J7040; P9016; 99283

== ENCOUNTER 2017-09-09 02:29 | Emergency (ER) | payer MEDICARE, OTHER ==
--- NOTE | 2017-09-09 02:56 | EDM.PDOC ---
ED HPI GENERAL MEDICAL PROBLEM - General Stated Complaint: FEMALE ISSUES Time Seen by Provider: 09/09/17 02:55 Source of Information: Reports: Patient - History of Present Illness INITIAL COMMENTS - FREE TEXT/NARRATIVE: HISTORY AND PHYSICAL: History of present illness: [Patient presents with itchy describes as purple lesions concerning perivaginal area as well as vaginal odor No fever nausea vomiting chills sweats no dysuria Monogamous relationship with her , she notes that they have had a "rough " intercourse recently after this she had noted the lesions ] Review of systems: As per history of present illness and below otherwise all systems reviewed and negative. Past medical history: As per history of present illness and as reviewed below otherwise noncontributory. Surgical history: As per history of present illness and as reviewed below otherwise noncontributory. Social history: No reported history of drug or alcohol abuse. Family history: As per history of present illness and as reviewed below otherwise noncontributory. Physical exam: HEENT: Atraumatic, normocephalic, pupils reactive, negative for conjunctival pallor or scleral icterus, mucous membranes moist, throat clear, neck supple, nontender, trachea midline. Lungs: Clear to auscultation, breath sounds equal bilaterally, chest nontender. Heart: S1S2, regular, negative for clicks, rubs, or JVD. Abdomen: Soft, nondistended, nontender. Negative for masses or hepatosplenomegaly. Negative for costovertebral tenderness. Pelvis: Stable nontender. Genitourinary: On external exam she does have many small blood blisters on the perivaginal area/labia, internal exam there is white milky discharge slight odor Rectal: Deferred. Extremities: Atraumatic, negative for cords or calf pain. Neurovascular unremarkable. Neuro: Awake, alert, oriented. Cranial nerves II through XII unremarkable. Cerebellum unremarkable. Motor and sensory unremarkable throughout. Exam nonfocal. Diagnostics: [GC Chlamydia Wet mount ] Therapeutics: [Rocephin 250 mg IM Azithromycin 1000 mg by mouth Vaginal 500 by mouth twice a day #14 no refill ] Impression: [ perivaginal lesions Bacterial vaginosis ] Definitive disposition and diagnosis as appropriate pending reevaluation and review of above. - Related Data Allergies Allergy/AdvReac Type Severity Reaction Status Date / Time codeine Allergy Itching Verified 09/09/17 03:05 Home Meds: Home Meds Insulin Aspart [Novolog] 10 unit SQ ASDIRECTED 04/22/17 [History] traZODone 50 mg PO BEDTIME 04/22/17 [History] Insulin Detemir [Levemir] 30 units SQ TID 06/13/17 [History] Furosemide 20 mg PO DAILY 09/09/17 [History] Gabapentin [Neurontin] 100 mg PO TID 09/09/17 [History] LORazepam 0.5 mg PO ASDIRECTED PRN 09/09/17 [History] Lactulose 1 dose PO QID 09/09/17 [History] OXcarbazepine [Oxcarbazepine] 150 mg PO DAILY 09/09/17 [History] Spironolactone 50 mg PO DAILY 09/09/17 [History] buPROPion HCl [Wellbutrin Xl] 150 mg pe PO DAILY 09/09/17 [History] traMADol [Ultram] 50 mg PO ASDIRECTED PRN 09/09/17 [History] Past Medical History - Past Health History Medical/Surgical History: Denies Medical/Surgical History HEENT History: Reports: Impaired Vision Cardiovascular History: Reports: None Respiratory History: Reports: Asthma Gastrointestinal History: Reports: Cholelithiasis, Hepatitis, Other (See Below) Other Gastrointestinal History: Gastric Ulcer, pancreatitis? 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 - Infectious Disease History Infectious Disease History: Reports: Hepatitis C - Past Surgical History Head Surgeries/Procedures: Reports: None HEENT Surgical History: Reports: None Respiratory Surgical History: Reports: None GI Surgical History: Reports: Cholecystectomy Female Surgical History: Reports: Section, Tubal Ligation Endocrine Surgical History: Reports: None Neurological Surgical History: Reports: Lumbar Spine Musculoskeletal Surgical History: Reports: Other (See Below) Other Musculoskeletal Surgeries/Procedures:: ankle surgery, back surgery Dermatological Surgical History: Reports: None Social & Family History - Family History Family Medical History: Noncontributory - Caffeine Use Caffeine Use: Reports: Coffee Other Caffeine Use: occasional coffee, unsweetened tea ED ROS GENERAL - Review of Systems Review Of Systems: See Below ED EXAM, GENERAL - Physical Exam Exam: See Below Course - Vital Signs Last Recorded V/S: Last Vital Signs Temp 98.1 F 09/09/17 03:01 Pulse 85 09/09/17 03:01 Resp 18 09/09/17 03:01 BP 113/69 09/09/17 03:01 Pulse Ox 98 09/09/17 03:01 - Orders/Labs/Meds Orders: Active Orders 24 hr Category Date Time Status CHLAMYDIA AND GONORRHEA BY TMA Stat Lab 09/09/17 03:25 Ordered TRICH/BLAYNE/CAND BY DNA PROBE [MOLEC] Stat Lab 09/09/17 03:25 Ordered Meds: Medications Discontinued Medications Generic Name Dose Route Start Last Admin Trade Name Freq PRN Reason Stop Dose Admin Azithromycin 1,000 mg 09/09/17 03:24 Zithromax PO 09/09/17 03:25 NOW STA Ceftriaxone Sodium 250 mg/ 1 mls @ 1 mls/sec 09/09/17 03:24 Lidocaine HCl IM 09/09/17 03:25 ONETIME ONE Departure - Departure Time of Disposition: 03:29 Disposition: Home, Self-Care 01 Condition: Good Clinical Impression: Bacterial vaginosis - Discharge Information Referrals: PCP,None [Primary Care Provider] - Additional Instructions: Medication as prescribed No alcohol with medication Return if symptoms persist or worsen Follow-up with gynecology [facility] [address] [place] [id number] The following information is given to patients seen in the emergency department who are being discharged to home. This information is to outline your options for follow-up care. We provide all patients seen in our emergency department with a follow-up referral. The need for follow-up, as well as the timing and circumstances, are variable depending upon the specifics of your emergency department visit. If you don't have a primary care physician on staff, we will provide you with a referral. We always advise you to contact your personal physician following an emergency department visit to inform them of the circumstance of the visit and for follow-up with them and/or the need for any referrals to a consulting specialist. The emergency department will also refer you to a specialist when appropriate. This referral assures that you have the opportunity for follow-up care with a specialist. All of these measure are taken in an effort to provide you with optimal care, which includes your follow-up. Under all circumstances we always encourage you to contact your private physician who remains a resource for coordinating your care. When calling for follow-up care, please make the office aware that this follow-up is from your recent emergency room visit. If for any reason you are refused follow-up, please contact the [facility] emergency department at and asked to speak to the emergency department charge nurse. - My Orders Last 24 Hours: My Active Orders 09/09/17 03:25 CHLAMYDIA AND GONORRHEA BY TMA Stat TRICH/BLAYNE/CAND BY DNA PROBE [MOLEC] Stat - Assessment/Plan Last 24 Hours: My Active Orders 09/09/17 03:25 CHLAMYDIA AND GONORRHEA BY TMA Stat TRICH/BLAYNE/CAND BY DNA PROBE [MOLEC] Stat
[2017-09-09] MEDS ORDERED: cefTRIAXone 250 MG in Lidocaine 1% 1 ML IM ONE (03:24)
[2017-09-09] MEDS ORDERED: Azithromycin 250 MG Tab PO STA (03:24)
[2017-09-09 04:02] VITALS: BP 112/62
== END 2017-09-09 03:50 | disposition home or self-care (01) ==
LOC: MW.ED 02:29
DX: N76.0 Acute vaginitis (principal); B96.89 Other specified bacterial agents as the cause of diseases classified elsewhere; E11.9 Type 2 diabetes mellitus without complications; Z88.5 Allergy status to narcotic agent; Z79.4 Long term (current) use of insulin; Z79.899 Other long term (current) drug therapy; Z87.440 Personal history of urinary (tract) infections
CPT/HCPCS: 87480; 87491; 87510; 87591; 87660; 96372; 99283; A9270; J0696; J2001

== ENCOUNTER 2017-09-20 05:56 | Emergency (ER) | payer MEDICARE, OTHER ==
[2017-09-20] MEDS ORDERED: Pantoprazole 40 MG Vial IVPUSH ONE (05:59)
[2017-09-20] MEDS ORDERED: Ondansetron 4 MG/2 ML SDV IVPUSH ONE (05:59)
[2017-09-20] MEDS ORDERED: Sodium Chloride 0.9% 10 ML Syringe FLUSH PRN ×2 (05:59→06:16)
[2017-09-20] MEDS ORDERED: Sodium Chloride 0.9% 1,000 ML IV ONE ×2 (05:59→06:41)
[2017-09-20] MEDS ORDERED: Sodium Chloride 0.9% 2.5 ML Syringe FLUSH PRN ×2 (05:59→06:16)
[2017-09-20] MEDS ORDERED: Pantoprazole 80 MG in Sodium Chloride 0.9% 100 ML IV SCH (06:00)
--- NOTE | 2017-09-20 06:06 | EDM.PDOC ---
ED HPI GENERAL MEDICAL PROBLEM - General Stated Complaint: AMBULANCE Time Seen by Provider: 09/20/17 05:56 - History of Present Illness INITIAL COMMENTS - FREE TEXT/NARRATIVE: HISTORY AND PHYSICAL: History of present illness: Patient is a 42-year-old female with a history of type 2 diabetes alcohol and substance abuse history bipolar disorder with depression history of a bilateral tubal ligation and hepatitis C with cirrhosis of the liver who presents via EMS after having a large emesis of bloody fluid with clots about 500 mL per EMS. According to the patient her hep C has not been well treated and she received interferon and Pegasys treatment at 24 years of age which did not work and she has followed with Dayanara Castañeda who is a mid-level provider of gastroenterology out of [facility] along with one of our providers here in the clinic for care since that time. The patient was evaluated and seen here at the end of May for dark stools and was admitted to our hospital and subsequently went on to have an upper GI bleed and was transferred to [facility] and [place]. The patient tells me she received a blood transfusion here and she was scoped at [facility] approximately 3 months ago and was told that she had a "rupture of a blood vessel" which caused her to bleed. She has not followed up at [facility] since that time. The patient initially was a value by EMS earlier this evening for having 3 months of blood in her stools since her admission at [facility] and one to 2 days of small episodes of vomitus with some blood in it and she refused transfer at that time. She then subsequently had a large episode of bloody vomit with clots about 500 mL and she was agreeable to come for evaluation. The patient denies any chest pain or shortness of breath but complains of diffuse abdominal pain. She is nauseated. She says she has had blood and dark stools for the last 3 months which is not new or different and she is having no urinary problems. She's had no recent fever chills or upper respiratory symptoms and she has not had recent episodes of heartburn or abdominal pain prior to the last 2 days. She states compliance with her medications. She is on lactulose and Lasix and the remainder the metastases can be seen in the nursing med list. She received no medications in route per EMS. Review of systems: As per history of present illness and below otherwise all systems reviewed and negative. Past medical history: As per history of present illness and as reviewed below otherwise noncontributory. Surgical history: As per history of present illness and as reviewed below otherwise noncontributory. Social history: No reported history of drug or alcohol abuse. Family history: As per history of present illness and as reviewed below otherwise noncontributory. Physical exam: General: Well-developed well-nourished female was somewhat anxious in the ED but speaking clearly and easily and is nontoxic. She has dark blood splattered on her lower extremities. Vital signs are noted by me. HEENT: Atraumatic, normocephalic, pupils reactive, negative for conjunctiva are slightly pale no scleral icterus, mucous membranes tacky throat clear, neck supple, nontender, trachea midline. Lungs: Clear to auscultation, breath sounds equal bilaterally, chest nontender. No wheezing stridor Rales or rhonchi Heart: S1S2, regular, rhythm and slightly tachycardic rate on my evaluation but no overt murmurs Abdomen: Soft, nondistended, bowel sounds are hypoactive and there is diffuse tenderness without any localization of the discomfort on palpation and there is no masses rebound or guarding. Negative for costovertebral tenderness. Pelvis: Stable nontender. Genitourinary: Deferred. Rectal: Deferred. Extremities: Atraumatic, negative for cords or calf pain. Neurovascular unremarkable. Trace pedal edema bilaterally Neuro: Awake, alert, oriented. Cranial nerves II through XII unremarkable. Cerebellum unremarkable. Motor and sensory unremarkable throughout. Exam nonfocal. Skin: No diaphoresis turgor is normal and overall appearance is slightly pale Diagnostics: CBC CMP amylase lipase ammonia level alcohol level INR type and screen chest x- ray upright [employer]: IV O2 monitor IV fluids Zofran and Protonix bolus and drip octreotide morphine and Ativan 0645: TESTING results were discussed with the patient as well as Dr. Johns and he accepts the patient at [facility] ER for further evaluation and care. Flight team is been notified due to the patient's low values and potential for more vomiting of blood and instability. In discussion with [facility] he is aware that her ammonia level is 102 but due to her nausea and vomiting I will not give her lactulose here and they can address that on arrival at [place]. I will send 2 units of typed specific blood to be used only in an emergency situation as we are unable to screen for the antibodies that she has. The patient and ER doc at [facility] are aware of this and they're comfortable with only getting the blood in flight as needed. Patient overall is looking much improved in the ED and is on her phone text and is no longer having any pain. We will continue to facilitate this transfer and the only I will need to follow-up on his the chest abdominal x- rays. We will push those to [place] Critical care time excluding procedures:31min Impression: Upper GI bleed likely esophageal varices, anemia and thrombocytopenia, recent alcohol use, hyperammonemia, history of hep C and cirrhosis Definitive disposition and diagnosis as appropriate pending reevaluation and review of above. Abdomen Pain Score (Numeric/FACES): 6 - Related Data Allergies Allergy/AdvReac Type Severity Reaction Status Date / Time codeine Allergy Itching Verified 09/20/17 06:05 Home Meds: Home Meds Insulin Aspart [Novolog] 10 unit SQ ASDIRECTED 04/22/17 [History] traZODone 50 mg PO BEDTIME 04/22/17 [History] Insulin Detemir [Levemir] 30 units SQ TID 06/13/17 [History] Furosemide 20 mg PO DAILY 09/09/17 [History] Gabapentin [Neurontin] 100 mg PO TID 09/09/17 [History] LORazepam 0.5 mg PO ASDIRECTED PRN 09/09/17 [History] Lactulose 1 dose PO QID 09/09/17 [History] OXcarbazepine [Oxcarbazepine] 150 mg PO DAILY 09/09/17 [History] Spironolactone 50 mg PO DAILY 09/09/17 [History] buPROPion HCl [Wellbutrin Xl] 150 mg pe PO DAILY 09/09/17 [History] traMADol [Ultram] 50 mg PO ASDIRECTED PRN 09/09/17 [History] Past Medical History - Past Health History Medical/Surgical History: Denies Medical/Surgical History HEENT History: Reports: Impaired Vision Cardiovascular History: Reports: None Other Cardiovascular History: Takes diuretics for portal HTN and swelling Respiratory History: Reports: Asthma Gastrointestinal History: Reports: Cholelithiasis, Hepatitis, Other (See Below) Other Gastrointestinal History: Gastric Ulcer, pancreatitis? and ileius Genitourinary History: Reports: UTI, Recurrent SIDE FRAMER History: Reports: Musculoskeletal History: Reports: None Other Musculoskeletal History: Herniated disk, lumbar fracture, fractured right ankle Neurological History: Reports: Concussion, Other (See Below) Other Neuro History: 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 - Infectious Disease History Infectious Disease History: Reports: Hepatitis C - Past Surgical History Head Surgeries/Procedures: Reports: None HEENT Surgical History: Reports: None Respiratory Surgical History: Reports: None GI Surgical History: Reports: Cholecystectomy Female Surgical History: Reports: Section, Tubal Ligation Endocrine Surgical History: Reports: None Neurological Surgical History: Reports: Lumbar Spine Musculoskeletal Surgical History: Reports: Other (See Below) Other Musculoskeletal Surgeries/Procedures:: ankle surgery, back surgery Dermatological Surgical History: Reports: None Social & Family History - Family History Family Medical History: Noncontributory - Caffeine Use Caffeine Use: Reports: Coffee Other Caffeine Use: occasional coffee, unsweetened tea ED ROS GENERAL - Review of Systems Review Of Systems: ROS reveals no pertinent complaints other than HPI. ED EXAM, GENERAL - Physical Exam Exam: See Below (See dictation) Course - Vital Signs Last Recorded V/S: Last Vital Signs Temp 36.0 C 09/20/17 06:00 Pulse 108 H 09/20/17 06:49 Resp 18 09/20/17 06:49 BP 108/65 09/20/17 06:49 Pulse Ox 95 09/20/17 06:49 - Orders/Labs/Meds Orders: Active Orders 24 hr Category Date Time Status Blood Glucose Check, Bedside [RC] ONETIME Care 09/20/17 05:59 Active Cardiac Monitoring [RC] . DIRECTED Care 09/20/17 05:58 Active Oxygen Therapy, ED [RC] ASDIRECTED Care 09/20/17 05:58 Active Pulse Oximetry [RC] ASDIRECTED Care 09/20/17 05:59 Active Abdomen 1V Upright [CR] Stat Exams 09/20/17 06:25 Ordered Chest 1V Frontal [CR] Stat Exams 09/20/17 05:59 Ordered CBC WITH AUTO DIFF [HEME] Stat Lab 09/20/17 06:25 Results TYPE AND SCREEN [BBK] Stat Lab 09/20/17 06:05 Received Pantoprazole [ProTONIX IV] 80 mg Med 09/20/17 06:00 Active Sodium Chloride 0.9% [Normal Saline] 100 ml IV .Continuous Sodium Chloride 0.9% [Normal Saline] 1,000 ml Med 09/20/17 05:59 Active IV STAT Sodium Chloride 0.9% [Normal Saline] 1,000 ml Med 09/20/17 06:41 Active IV STAT Sodium Chloride 0.9% [Saline Flush] Med 09/20/17 05:59 Active 10 ml FLUSH ASDIRECTED PRN Sodium Chloride 0.9% [Saline Flush] Med 09/20/17 06:16 Active 10 ml FLUSH ASDIRECTED PRN Sodium Chloride 0.9% [Saline Flush] Med 09/20/17 05:59 Active 2.5 ml FLUSH ASDIRECTED PRN Sodium Chloride 0.9% [Saline Flush] Med 09/20/17 06:16 Active 2.5 ml FLUSH ASDIRECTED PRN Saline Lock Insert [OM.PC] Stat Oth 09/20/17 05:58 Ordered Saline Lock Insert [OM.PC] Stat Ot 09/20/17 06:16 Ordered Medication Orders Sodium Chloride (Normal Saline) 1,000 mls @ 999 mls/hr IV STAT ONE Stop: 09/20/17 06:59 Last Admin: 09/20/17 06:10 Dose: 999 mls/hr Pantoprazole Sodium 80 mg/ (Sodium Chloride) 100 mls @ 10 mls/hr IV .Continuous JOYCE Last Admin: 09/20/17 06:41 Dose: 10 mls/hr Sodium Chloride (Normal Saline) 1,000 mls @ 999 mls/hr IV STAT ONE Stop: 09/20/17 07:41 Last Admin: 09/20/17 06:44 Dose: 999 mls/hr Sodium Chloride (Saline Flush) 10 ml FLUSH ASDIRECTED PRN PRN Reason: Keep Vein Open Sodium Chloride (Saline Flush) 2.5 ml FLUSH ASDIRECTED PRN PRN Reason: Keep Vein Open Sodium Chloride (Saline Flush) 10 ml FLUSH ASDIRECTED PRN PRN Reason: Keep Vein Open Sodium Chloride (Saline Flush) 2.5 ml FLUSH ASDIRECTED PRN PRN Reason: Keep Vein Open Labs: Laboratory Tests 09/20/17 09/20/17 09/20/17 Range/Units 06:05 06:05 06:05 WBC (4.0-11.0) K/uL RBC (4.30-5.90) M/uL Hgb (12.0-16.0) g/dL Hct (36.0-46.0) % MCV (80.0-98.0) fL MCH (27.0-32.0) pg MCHC (31.0-37.0) g/dL RDW Std Deviation (28.0-62.0) fl RDW Coeff of Jovan (11.0-15.0) % Plt Count (150-400) K/uL Add Manual Diff Nucleated RBC % /100WBC Nucleated RBCs # K/uL INR 1.58 Sodium 137 (136-145) mmol/L Potassium 4.4 (3.5-5.1) mmol/L Chloride 102 (98-107) mmol/L Carbon Dioxide 26.4 (21.0-32.0) mmol/L BUN 18 (7.0-18.0) mg/dL Creatinine 0.9 (0.6-1.0) mg/dL Est Cr Clr Drug Dosing 79.99 mL/min Estimated GFR (MDRD) > 60.0 ml/min Glucose 282 H (74-106) mg/dL Calcium 7.7 L (8.5-10.1) mg/dL Total Bilirubin 1.4 H (0.2-1.0) mg/dL AST 154 H (15-37) IU/L ALT 89 H (14-63) IU/L Alkaline Phosphatase 231 H (46-116) U/L Ammonia 102 H (19-54) ug/dL Total Protein 6.6 (6.4-8.2) g/dL Albumin 2.0 L (3.4-5.0) g/dL Globulin 4.6 H (2.0-3.5) g/dL Albumin/Globulin Ratio 0.4 L (1.3-2.8) Amylase 94 (25-115) U/L Lipase 276 (73-393) U/L Ethyl Alcohol 158 mg/dL 09/20/17 Range/Units 06:25 WBC 3.99 L (4.0-11.0) K/uL RBC 2.68 L (4.30-5.90) M/uL Hgb 6.9 L (12.0-16.0) g/dL Hct 22.1 L (36.0-46.0) % MCV 82.5 (80.0-98.0) fL MCH 25.7 L (27.0-32.0) pg MCHC 31.2 (31.0-37.0) g/dL RDW Std Deviation 66.0 H (28.0-62.0) fl RDW Coeff of Jovan 22 H (11.0-15.0) % Plt Count 41 L (150-400) K/uL Add Manual Diff YES Nucleated RBC % 0.0 /100WBC Nucleated RBCs # 0 K/uL INR Sodium (136-145) mmol/L Potassium (3.5-5.1) mmol/L Chloride (98-107) mmol/L Carbon Dioxide (21.0-32.0) mmol/L BUN (7.0-18.0) mg/dL Creatinine (0.6-1.0) mg/dL Est Cr Clr Drug Dosing mL/min Estimated GFR (MDRD) ml/min Glucose (74-106) mg/dL Calcium (8.5-10.1) mg/dL Total Bilirubin (0.2-1.0) mg/dL AST (15-37) IU/L ALT (14-63) IU/L Alkaline Phosphatase (46-116) U/L Ammonia (19-54) ug/dL Total Protein (6.4-8.2) g/dL Albumin (3.4-5.0) g/dL Globulin (2.0-3.5) g/dL Albumin/Globulin Ratio (1.3-2.8) Amylase (25-115) U/L Lipase (73-393) U/L Ethyl Alcohol mg/dL Meds: Medications Generic Name Dose Route Start Last Admin Trade Name Freq PRN Reason Stop Dose Admin Sodium Chloride 1,000 mls @ 999 mls/hr 09/20/17 05:59 09/20/17 06:10 Normal Saline IV 09/20/17 06:59 999 mls/hr STAT ONE Administration Pantoprazole Sodium 80 mg/ 100 mls @ 10 mls/hr 09/20/17 06:00 09/20/17 06:41 Sodium Chloride IV 10 mls/hr .Continuous JOYCE Administration Sodium Chloride 1,000 mls @ 999 mls/hr 09/20/17 06:41 09/20/17 06:44 Normal Saline IV 09/20/17 07:41 999 mls/hr STAT ONE Administration Sodium Chloride 10 ml 09/20/17 05:59 Saline Flush FLUSH ASDIRECTED PRN Keep Vein Open Sodium Chloride 2.5 ml 09/20/17 05:59 Saline Flush FLUSH ASDIRECTED PRN Keep Vein Open Sodium Chloride 10 ml 09/20/17 06:16 Saline Flush FLUSH ASDIRECTED PRN Keep Vein Open Sodium Chloride 2.5 ml 09/20/17 06:16 Saline Flush FLUSH ASDIRECTED PRN Keep Vein Open Discontinued Medications Generic Name Dose Route Start Last Admin Trade Name Freq PRN Reason Stop Dose Admin Lorazepam 1 mg 09/20/17 06:26 09/20/17 06:33 Ativan IVPUSH 09/20/17 06:27 1 mg ONETIME ONE Administration Morphine Sulfate 4 mg 09/20/17 06:14 09/20/17 06:23 Morphine IVPUSH 09/20/17 06:15 4 mg ONETIME ONE Administration Octreotide Acetate 50 mcg 09/20/17 06:39 Sandostatin IV 09/20/17 06:40 ONETIME ONE Ondansetron HCl 4 mg 09/20/17 05:59 09/20/17 06:16 Zofran IVPUSH 09/20/17 06:00 4 mg ONETIME ONE Administration Pantoprazole Sodium 80 mg 09/20/17 05:59 09/20/17 06:10 Protonix Iv IVPUSH 09/20/17 06:00 80 mg .BOLUS ONE Administration Departure - Departure Time of Disposition: 06:54 Disposition: DC/Tfer to Acute Hospital 02 Condition: Good Clinical Impression: Vomiting, Upper GI bleed, Hyperammonemia, Thrombocytopenia Hepatitis C Qualifiers: Viral hepatitis chronicity: unspecified Hepatic coma status: without hepatic coma Qualified Code(s): B19.20 - Unspecified viral hepatitis C without hepatic coma Cirrhosis Qualifiers: Hepatic cirrhosis type: unspecified hepatic cirrhosis Ascites presence: without ascites Qualified Code(s): K74.60 - Unspecified cirrhosis of liver - Discharge Information - My Orders Last 24 Hours: My Active Orders 09/20/17 05:58 Cardiac Monitoring [RC] . DIRECTED Oxygen Therapy, ED [RC] ASDIRECTED Saline Lock Insert [OM.PC] Stat 09/20/17 05:59 Blood Glucose Check, Bedside [RC] ONETIME Pulse Oximetry [RC] ASDIRECTED Chest 1V Frontal [CR] Stat Sodium Chloride 0.9% [Normal Saline] 1,000 ml IV STAT Sodium Chloride 0.9% [Saline Flush] 10 ml FLUSH ASDIRECTED PRN Sodium Chloride 0.9% [Saline Flush] 2.5 ml FLUSH ASDIRECTED PRN 09/20/17 06:00 Pantoprazole [ProTONIX IV] 80 mg Sodium Chloride 0.9% [Normal Saline] 100 ml IV .Continuous 09/20/17 06:05 TYPE AND SCREEN [BBK] Stat 09/20/17 06:16 Sodium Chloride 0.9% [Saline Flush] 10 ml FLUSH ASDIRECTED PRN Sodium Chloride 0.9% [Saline Flush] 2.5 ml FLUSH ASDIRECTED PRN Saline Lock Insert [OM.PC] Stat 09/20/17 06:25 Abdomen 1V Upright [CR] Stat CBC WITH AUTO DIFF [HEME] Stat 09/20/17 06:41 Sodium Chloride 0.9% [Normal Saline] 1,000 ml IV STAT - Assessment/Plan Last 24 Hours: My Active Orders 09/20/17 05:58 Cardiac Monitoring [RC] . DIRECTED Oxygen Therapy, ED [RC] ASDIRECTED Saline Lock Insert [OM.PC] Stat 09/20/17 05:59 Blood Glucose Check, Bedside [RC] ONETIME Pulse Oximetry [RC] ASDIRECTED Chest 1V Frontal [CR] Stat Sodium Chloride 0.9% [Normal Saline] 1,000 ml IV STAT Sodium Chloride 0.9% [Saline Flush] 10 ml FLUSH ASDIRECTED PRN Sodium Chloride 0.9% [Saline Flush] 2.5 ml FLUSH ASDIRECTED PRN 09/20/17 06:00 Pantoprazole [ProTONIX IV] 80 mg Sodium Chloride 0.9% [Normal Saline] 100 ml IV .Continuous 09/20/17 06:05 TYPE AND SCREEN [BBK] Stat 09/20/17 06:16 Sodium Chloride 0.9% [Saline Flush] 10 ml FLUSH ASDIRECTED PRN Sodium Chloride 0.9% [Saline Flush] 2.5 ml FLUSH ASDIRECTED PRN Saline Lock Insert [OM.PC] Stat 09/20/17 06:25 Abdomen 1V Upright [CR] Stat CBC WITH AUTO DIFF [HEME] Stat 09/20/17 06:41 Sodium Chloride 0.9% [Normal Saline] 1,000 ml IV STAT
[2017-09-20] MEDS ORDERED: Morphine 2 MG/ML Syringe IVPUSH ONE (06:14)
[2017-09-20] MEDS ORDERED: LORazepam 2 MG/ML SDV IVPUSH ONE (06:26)
[2017-09-20 06:39] LABS: CHLORIDE,CL 102 mmol/L (98-107); SODIUM,NA 137 mmol/L (136-145)
[2017-09-20] MEDS ORDERED: Octreotide 50 MCG/1 ML Amp IV ONE (06:39)
[2017-09-20 07:34] VITALS: BP 112/67
--- NOTE | 2017-09-20 11:30 | CR ---
EXAM DATE: 09/20/17 PATIENT'S AGE: 42 Patient: RICO RINCON Facility: [place], [place] Site . Site : 1975 Study: XRay Chest [id number]/26/[id number] 6:56:51 AM Ordering Physician: Elvin Nelson Final Report: INDICATION: GI bleed. COMPARISON: none TECHNIQUE: PA chest FINDINGS: The lungs are clear. The heart, mediastinum and pulmonary vessels are of normal size. There is no evidence of pleural fluid. IMPRESSION: Negative chest. Dictated by Edi Watters MD @ Sep 20 2017 6:58AM (Electronic Signature) Report Signed by Proxy. DENISE
--- NOTE | 2017-09-20 11:31 | CR ---
EXAM DATE: 09/20/17 PATIENT'S AGE: 42 Patient: RICO RINCON Facility: [place], [place] Site . Site : 1975 Study: XRay Abdomen [id number]/26/[id number] 6:57:19 AM Ordering Physician: Elvin Nelson Final Report: INDICATION: GI bleed. COMPARISON: none TECHNIQUE: Portable AP erect abdomen performed at 6:44 a.m. FINDINGS: The bowel gas pattern appears normal. Cholecystectomy surgical clips are noted within the right upper quadrant. There is no evidence of free intraperitoneal air or soft tissue mass effect. There are no pathologic calcifications. IMPRESSION: Negative abdomen. Dictated by Edi Watters MD @ Sep 20 2017 6:59AM (Electronic Signature) Report Signed by Proxy. DENISE
== END 2017-09-20 07:20 ==
LOC: MW.ED 05:56
DX: K92.2 Gastrointestinal hemorrhage, unspecified (principal); R11.10 Vomiting, unspecified; B19.20 Unspecified viral hepatitis C without hepatic coma; K74.60 Unspecified cirrhosis of liver; F31.9 Bipolar disorder, unspecified; D69.6 Thrombocytopenia, unspecified; J45.909 Unspecified asthma, uncomplicated; E11.9 Type 2 diabetes mellitus without complications; E72.20 Disorder of urea cycle metabolism, unspecified; Z88.5 Allergy status to narcotic agent; Z79.899 Other long term (current) drug therapy; Z79.4 Long term (current) use of insulin; F10.10 Alcohol abuse, uncomplicated; K76.6 Portal hypertension
CPT/HCPCS: 71045; 74018; 80053; 82140; 82150; 83690; 85025; 85610; 86850; 86870; 86900; 86901; 86902; C9113; G0480; J2060; J2270; J2354; J2405; J7030; J7040; 96361; 96365; 96374; 96375; 99285-25

== ENCOUNTER 2017-10-01 08:54 | Emergency (ER) | payer MEDICARE, OTHER ==
[2017-10-01] MEDS ORDERED: Sodium Chloride 0.9% 1,000 ML IV ONE (08:57)
--- NOTE | 2017-10-01 09:02 | EDM.PDOC ---
ED HPI GENERAL MEDICAL PROBLEM - General Chief Complaint: Abdominal Pain Stated Complaint: ABDOMINAL PAIN Time Seen by Provider: 10/01/17 08:59 - History of Present Illness INITIAL COMMENTS - FREE TEXT/NARRATIVE: HISTORY AND PHYSICAL: History of present illness: Patient is 42-year-old female with history of chronic intermittent abdominal pain and liver dysfunction related to hepatitis C infection who presents with concern of abdominal discomfort and increased abdominal girth and no fever chills nausea vomiting or other complaints. Review of systems: As per history of present illness and below otherwise all systems reviewed and negative. Past medical history: As per history of present illness and as reviewed below otherwise noncontributory. Surgical history: As per history of present illness and as reviewed below otherwise noncontributory. Social history: No reported history of drug or alcohol abuse. Family history: As per history of present illness and as reviewed below otherwise noncontributory. Physical exam: HEENT: Atraumatic, normocephalic, pupils reactive, negative for conjunctival pallor, mucous membranes moist, throat clear, neck supple, nontender, trachea midline. Lungs: Clear to auscultation, breath sounds equal bilaterally, chest nontender. Heart: S1S2, regular, negative for clicks, rubs, or JVD. Abdomen: Soft, nondistended, no localized tenderness. Negative for masses or hepatosplenomegaly. Negative for costovertebral tenderness. Pelvis: Stable nontender. Genitourinary: Deferred. Rectal: Deferred. Extremities: Atraumatic, negative for cords or calf pain. Neurovascular unremarkable. Neuro: Awake, alert, oriented. Cranial nerves II through XII unremarkable. Cerebellum unremarkable. Motor and sensory unremarkable throughout. Exam nonfocal. Diagnostics: CBC CMP PT/INR UA hCG urine drug screen chest x-ray lipase CT abdomen and pelvis Therapeutics: saline 1 L bolus Impression: #1 chronic intermittent abdominal pain #2 history of hepatitis C Definitive disposition and diagnosis as appropriate pending reevaluation and review of above. - Related Data Allergies Allergy/AdvReac Type Severity Reaction Status Date / Time codeine Allergy Itching Verified 10/01/17 09:03 Home Meds: Home Meds Insulin Aspart [Novolog] 10 unit SQ ASDIRECTED 04/22/17 [History] traZODone 25 - 50 mg PO BEDTIME PRN 04/22/17 [History] Insulin Detemir [Levemir] 30 units SQ TID 06/13/17 [History] Furosemide 20 mg PO BID 09/09/17 [History] Gabapentin [Neurontin] 100 mg PO TID 09/09/17 [History] Lactulose 10 ml PO Q4H PRN 09/09/17 [History] OXcarbazepine [Oxcarbazepine] 150 mg PO BID 09/09/17 [History] Spironolactone 50 mg PO DAILY 09/09/17 [History] buPROPion HCl [Wellbutrin Xl] 300 mg PO DAILY 09/09/17 [History] Levothyroxine Sodium [Synthroid] 25 mcg PO ACBREAKFAST 10/01/17 [History] Nadolol [Corgard] 20 mg PO DAILY 10/01/17 [History] Pantoprazole [ProTONIX] 40 mg PO ACBREAKFAST 10/01/17 [History] Sucralfate 1 gm PO QIDACANDBED 10/01/17 [History] Past Medical History - Past Health History Medical/Surgical History: Denies Medical/Surgical History HEENT History: Reports: Impaired Vision Cardiovascular History: Reports: None Other Cardiovascular History: Takes diuretics for portal HTN and swelling Respiratory History: Reports: Asthma Gastrointestinal History: Reports: Cholelithiasis, Hepatitis, Other (See Below) Other Gastrointestinal History: Gastric Ulcer, pancreatitis? and ileius Genitourinary History: Reports: UTI, Recurrent CAREER SPECIALIST History: Reports: Musculoskeletal History: Reports: None Other Musculoskeletal History: Herniated disk, lumbar fracture, fractured right ankle Neurological History: Reports: Concussion, Other (See Below) Other Neuro History: 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 - Infectious Disease History Infectious Disease History: Reports: Hepatitis C - Past Surgical History Head Surgeries/Procedures: Reports: None HEENT Surgical History: Reports: None Respiratory Surgical History: Reports: None GI Surgical History: Reports: Cholecystectomy Female Surgical History: Reports: Section, Tubal Ligation Endocrine Surgical History: Reports: None Neurological Surgical History: Reports: Lumbar Spine Musculoskeletal Surgical History: Reports: Other (See Below) Other Musculoskeletal Surgeries/Procedures:: ankle surgery, back surgery Dermatological Surgical History: Reports: None Social & Family History - Family History Family Medical History: Noncontributory - Caffeine Use Caffeine Use: Reports: Coffee Other Caffeine Use: occasional coffee, unsweetened tea ED ROS GENERAL - Review of Systems Review Of Systems: ROS reveals no pertinent complaints other than HPI. ED EXAM, GENERAL - Physical Exam Exam: See Below (See dictation) Course - Vital Signs Last Recorded V/S: Last Vital Signs Temp 36.5 C 10/01/17 09:03 Pulse 77 10/01/17 09:03 Resp 22 H 10/01/17 09:03 BP 115/76 10/01/17 09:03 Pulse Ox 100 10/01/17 09:03 - Orders/Labs/Meds Orders: Active Orders 24 hr Category Date Time Status Abdomen Pelvis wo Cont [CT] Stat Exams 10/01/17 08:57 Taken Chest 1V Frontal [CR] Stat Exams 10/01/17 09:02 Taken CULTURE URINE [RM] Stat Lab 10/01/17 10:24 Ordered DRUG SCREEN, URINE [URCHEM] Stat Lab 10/01/17 10:24 Ordered UA W/MICROSCOPIC [URIN] Stat Lab 10/01/17 10:24 Ordered Labs: Laboratory Tests 10/01/17 10/01/17 10/01/17 Range/Units 09:10 09:10 09:10 WBC 4.62 (4.0-11.0) K/uL RBC 3.71 L (4.30-5.90) M/uL Hgb 9.5 L (12.0-16.0) g/dL Hct 29.4 L (36.0-46.0) % MCV 79.2 L (80.0-98.0) fL MCH 25.6 L (27.0-32.0) pg MCHC 32.3 (31.0-37.0) g/dL RDW Std Deviation 57.9 (28.0-62.0) fl RDW Coeff of Jovan 20 H (11.0-15.0) % Plt Count 65 L (150-400) K/uL Neut % (Auto) 55.5 (48.0-80.0) % Lymph % (Auto) 29.4 (16.0-40.0) % Dent % (Auto) 10.6 (0.0-15.0) % Eos % (Auto) 4.1 (0.0-7.0) % Baso % (Auto) 0.4 (0.0-1.5) % Neut # (Auto) 2.6 (1.4-5.7) K/uL Lymph # (Auto) 1.4 (0.6-2.4) K/uL Dent # (Auto) 0.5 (0.0-0.8) K/uL Eos # (Auto) 0.2 (0.0-0.7) K/uL Baso # (Auto) 0.0 (0.0-0.1) K/uL Nucleated RBC % 0.0 /100WBC Nucleated RBCs # 0 K/uL INR 1.39 Sodium 132 L (136-145) mmol/L Potassium 3.6 (3.5-5.1) mmol/L Chloride 100 (98-107) mmol/L Carbon Dioxide 27.3 (21.0-32.0) mmol/L BUN 13 (7.0-18.0) mg/dL Creatinine 1.0 (0.6-1.0) mg/dL Est Cr Clr Drug Dosing 72.00 mL/min Estimated GFR (MDRD) > 60.0 ml/min Glucose 153 H (74-106) mg/dL POC Glucose (60-110) mg/dL Calcium 7.7 L (8.5-10.1) mg/dL Total Bilirubin 1.7 H (0.2-1.0) mg/dL AST 85 H (15-37) IU/L ALT 62 (14-63) IU/L Alkaline Phosphatase 285 H (46-116) U/L Total Protein 7.1 (6.4-8.2) g/dL Albumin 2.2 L (3.4-5.0) g/dL Globulin 4.9 H (2.0-3.5) g/dL Albumin/Globulin Ratio 0.5 L (1.3-2.8) Lipase 192 (73-393) U/L HCG, Qual (NEG) Urine Color Urine Appearance Urine pH (5.0-8.0) Ur Specific [place] (1.001-1.035) Urine Protein (NEGATIVE) mg/dL Urine Glucose (UA) (NEGATIVE) mg/dL Urine Ketones (NEGATIVE) mg/dL Urine Occult Blood (NEGATIVE) Urine Nitrite (NEGATIVE) Urine Bilirubin (NEGATIVE) Urine Urobilinogen (<2.0) EU/dL Ur Leukocyte Esterase (NEGATIVE) Urine RBC (0-2/HPF) Urine WBC (0-5/HPF) Ur Epithelial Cells (NONE-FEW) Urine Bacteria (NEGATIVE) Urine Opiates Screen (NEGATIVE) Ur Oxycodone Screen (NEGATIVE) Urine Methadone Screen (NEGATIVE) Ur Barbiturates Screen (NEGATIVE) Ur Phencyclidine Scrn (NEGATIVE) Ur Amphetamine Screen (NEGATIVE) U Methamphetamines Scrn (NEGATIVE) U Benzodiazepines Scrn (NEGATIVE) U Cocaine Metab Screen (NEGATIVE) U Marijuana (THC) Screen (NEGATIVE) 10/01/17 10/01/17 10/01/17 Range/Units 09:10 09:12 10:24 WBC (4.0-11.0) K/uL RBC (4.30-5.90) M/uL Hgb (12.0-16.0) g/dL Hct (36.0-46.0) % MCV (80.0-98.0) fL MCH (27.0-32.0) pg MCHC (31.0-37.0) g/dL RDW Std Deviation (28.0-62.0) fl RDW Coeff of Jovan (11.0-15.0) % Plt Count (150-400) K/uL Neut % (Auto) (48.0-80.0) % Lymph % (Auto) (16.0-40.0) % Dent % (Auto) (0.0-15.0) % Eos % (Auto) (0.0-7.0) % Baso % (Auto) (0.0-1.5) % Neut # (Auto) (1.4-5.7) K/uL Lymph # (Auto) (0.6-2.4) K/uL Dent # (Auto) (0.0-0.8) K/uL Eos # (Auto) (0.0-0.7) K/uL Baso # (Auto) (0.0-0.1) K/uL Nucleated RBC % /100WBC Nucleated RBCs # K/uL INR Sodium (136-145) mmol/L Potassium (3.5-5.1) mmol/L Chloride (98-107) mmol/L Carbon Dioxide (21.0-32.0) mmol/L BUN (7.0-18.0) mg/dL Creatinine (0.6-1.0) mg/dL Est Cr Clr Drug Dosing mL/min Estimated GFR (MDRD) ml/min Glucose (74-106) mg/dL POC Glucose 165 H (60-110) mg/dL Calcium (8.5-10.1) mg/dL Total Bilirubin (0.2-1.0) mg/dL AST (15-37) IU/L ALT (14-63) IU/L Alkaline Phosphatase (46-116) U/L Total Protein (6.4-8.2) g/dL Albumin (3.4-5.0) g/dL Globulin (2.0-3.5) g/dL Albumin/Globulin Ratio (1.3-2.8) Lipase (73-393) U/L HCG, Qual NEGATIVE (NEG) Urine Color YELLOW Urine Appearance CLEAR Urine pH 6.5 (5.0-8.0) Ur Specific [place] 1.010 (1.001-1.035) Urine Protein NEGATIVE (NEGATIVE) mg/dL Urine Glucose (UA) NEGATIVE (NEGATIVE) mg/dL Urine Ketones NEGATIVE (NEGATIVE) mg/dL Urine Occult Blood NEGATIVE (NEGATIVE) Urine Nitrite NEGATIVE (NEGATIVE) Urine Bilirubin NEGATIVE (NEGATIVE) Urine Urobilinogen 0.2 (<2.0) EU/dL Ur Leukocyte Esterase NEGATIVE (NEGATIVE) Urine RBC 0-2 (0-2/HPF) Urine WBC 0-2 (0-5/HPF) Ur Epithelial Cells FEW (NONE-FEW) Urine Bacteria FEW (NEGATIVE) Urine Opiates Screen (NEGATIVE) Ur Oxycodone Screen (NEGATIVE) Urine Methadone Screen (NEGATIVE) Ur Barbiturates Screen (NEGATIVE) Ur Phencyclidine Scrn (NEGATIVE) Ur Amphetamine Screen (NEGATIVE) U Methamphetamines Scrn (NEGATIVE) U Benzodiazepines Scrn (NEGATIVE) U Cocaine Metab Screen (NEGATIVE) U Marijuana (THC) Screen (NEGATIVE) 10/01/17 Range/Units 10:24 WBC (4.0-11.0) K/uL RBC (4.30-5.90) M/uL Hgb (12.0-16.0) g/dL Hct (36.0-46.0) % MCV (80.0-98.0) fL MCH (27.0-32.0) pg MCHC (31.0-37.0) g/dL RDW Std Deviation (28.0-62.0) fl RDW Coeff of Jovan (11.0-15.0) % Plt Count (150-400) K/uL Neut % (Auto) (48.0-80.0) % Lymph % (Auto) (16.0-40.0) % Dent % (Auto) (0.0-15.0) % Eos % (Auto) (0.0-7.0) % Baso % (Auto) (0.0-1.5) % Neut # (Auto) (1.4-5.7) K/uL Lymph # (Auto) (0.6-2.4) K/uL Dent # (Auto) (0.0-0.8) K/uL Eos # (Auto) (0.0-0.7) K/uL Baso # (Auto) (0.0-0.1) K/uL Nucleated RBC % /100WBC Nucleated RBCs # K/uL INR Sodium (136-145) mmol/L Potassium (3.5-5.1) mmol/L Chloride (98-107) mmol/L Carbon Dioxide (21.0-32.0) mmol/L BUN (7.0-18.0) mg/dL Creatinine (0.6-1.0) mg/dL Est Cr Clr Drug Dosing mL/min Estimated GFR (MDRD) ml/min Glucose (74-106) mg/dL POC Glucose (60-110) mg/dL Calcium (8.5-10.1) mg/dL Total Bilirubin (0.2-1.0) mg/dL AST (15-37) IU/L ALT (14-63) IU/L Alkaline Phosphatase (46-116) U/L Total Protein (6.4-8.2) g/dL Albumin (3.4-5.0) g/dL Globulin (2.0-3.5) g/dL Albumin/Globulin Ratio (1.3-2.8) Lipase (73-393) U/L HCG, Qual (NEG) Urine Color Urine Appearance Urine pH (5.0-8.0) Ur Specific [place] (1.001-1.035) Urine Protein (NEGATIVE) mg/dL Urine Glucose (UA) (NEGATIVE) mg/dL Urine Ketones (NEGATIVE) mg/dL Urine Occult Blood (NEGATIVE) Urine Nitrite (NEGATIVE) Urine Bilirubin (NEGATIVE) Urine Urobilinogen (<2.0) EU/dL Ur Leukocyte Esterase (NEGATIVE) Urine RBC (0-2/HPF) Urine WBC (0-5/HPF) Ur Epithelial Cells (NONE-FEW) Urine Bacteria (NEGATIVE) Urine Opiates Screen NEGATIVE (NEGATIVE) Ur Oxycodone Screen NEGATIVE (NEGATIVE) Urine Methadone Screen NEGATIVE (NEGATIVE) Ur Barbiturates Screen NEGATIVE (NEGATIVE) Ur Phencyclidine Scrn NEGATIVE (NEGATIVE) Ur Amphetamine Screen NEGATIVE (NEGATIVE) U Methamphetamines Scrn NEGATIVE (NEGATIVE) U Benzodiazepines Scrn NEGATIVE (NEGATIVE) U Cocaine Metab Screen NEGATIVE (NEGATIVE) U Marijuana (THC) Screen NEGATIVE (NEGATIVE) Meds: Medications Discontinued Medications Generic Name Dose Route Start Last Admin Trade Name Freq PRN Reason Stop Dose Admin Sodium Chloride 1,000 mls @ 999 mls/hr 10/01/17 08:57 10/01/17 09:16 Normal Saline IV 10/01/17 09:57 999 mls/hr STAT ONE Administration Departure - Departure Time of Disposition: 11:03 Disposition: Home, Self-Care 01 Condition: Good Clinical Impression: Chronic abdominal pain, History of hepatitis C - Discharge Information Forms: ED Department Discharge Additional Instructions: The following information is given to patients seen in the emergency department who are being discharged to home. This information is to outline your options for follow-up care. We provide all patients seen in our emergency department with a follow-up referral. The need for follow-up, as well as the timing and circumstances, are variable depending upon the specifics of your emergency department visit. If you don't have a primary care physician on staff, we will provide you with a referral. We always advise you to contact your personal physician following an emergency department visit to inform them of the circumstance of the visit and for follow-up with them and/or the need for any referrals to a consulting specialist. The emergency department will also refer you to a specialist when appropriate. This referral assures that you have the opportunity for followup care with a specialist. All of these measure are taken in an effort to provide you with optimal care, which includes your followup. Under all circumstances we always encourage you to contact your private physician who remains a resource for coordinating your care. When calling for followup care, please make the office aware that this follow-up is from your recent emergency room visit. If for any reason you are refused follow-up, please contact the [facility] emergency department at and asked to speak to the emergency department charge nurse. Follow-up primary medical doctor as discussed return as needed as discussed - My Orders Last 24 Hours: My Active Orders 10/01/17 08:57 Abdomen Pelvis wo Cont [CT] Stat 10/01/17 09:02 Chest 1V Frontal [CR] Stat 10/01/17 10:24 CULTURE URINE [RM] Stat DRUG SCREEN, URINE [URCHEM] Stat UA W/MICROSCOPIC [URIN] Stat - Assessment/Plan Last 24 Hours: My Active Orders 10/01/17 08:57 Abdomen Pelvis wo Cont [CT] Stat 10/01/17 09:02 Chest 1V Frontal [CR] Stat 10/01/17 10:24 CULTURE URINE [RM] Stat DRUG SCREEN, URINE [URCHEM] Stat UA W/MICROSCOPIC [URIN] Stat
[2017-10-01 09:11] VITALS: BP 115/76
[2017-10-01 09:40] LABS: CHLORIDE,CL 100 mmol/L (98-107); SODIUM,NA 132 mmol/L (136-145)
--- NOTE | 2017-10-03 18:38 | CR ---
EXAM DATE: 10/01/17 PATIENT'S AGE: 42 Patient: RICO RINCON Facility: [place], [place] Site . Site : 1975 Study: XRay Chest [id number]/7/[id number] 9:57:38 AM Ordering Physician: Galileo Daley Final Report: HISTORY: Chest pain, shortness of breath. TECHNIQUE: One view of the chest. COMPARISON: 09/20/2017. FINDINGS: Cardiac size and pulmonary vasculature are within normal limits. There is no lung infiltrate or pulmonary edema. No pneumothorax or pleural effusion. No acute bony abnormality. IMPRESSION: No acute disease. Dictated by Hussain Borrero MD @ 10/01/2017 10:22:12 AM Dictated by: Hussain Borrero MD @ 10/01/2017 10:22:16 (Electronic Signature) Report Signed by Proxy. [facility]ITALChristel
--- NOTE | 2017-10-03 18:38 | CT ---
EXAM DATE: 10/01/17 PATIENT'S AGE: 42 Patient: RICO RINCON Facility: [place], [place] Site . Site : 1975 Study: CT Abdomen/Pelvis [id number]/7/[id number] 9:59:05 AM Ordering Physician: Doctor Cruz Final Report: HISTORY: Abdominal pain and bloating. Hepatitis C. TECHNIQUE: Noncontrast CT abdomen and pelvis. COMPARISON: 07/06/2017. FINDINGS: The liver demonstrates a nodular contour compatible with cirrhosis. Liver parenchymal assessment is limited without intravenous contrast. Prior cholecystectomy. Increased splenomegaly with the spleen measuring 14.4 cm compared to 12.4 cm previously. Adrenal glands normal. No focal pancreatic mass. There is some upper retroperitoneal peripancreatic fluid or edema. This could relate to the serosa so pancreatitis is also possible. Consider correlation with pancreatic enzymes. There is no hydronephrosis or obstructive urinary calculus. Possible cyst at the posterior aspect of the mid left kidney, incompletely characterized by this noncontrast CT. Urinary bladder is grossly unremarkable. - Mild increased fluid within several small bowel loops. No transition point to suggest obstruction. No appendicitis. No diverticulitis or colonic obstruction. No localized fluid collection or free air. No abdominal aortic aneurysm. - Degenerative changes of the spine. No acute fractures. - No infiltrate within the lung bases nor pleural effusion. IMPRESSION: 1. Cirrhotic liver. 2. Small of peripancreatic retroperitoneal fluid or edema. This could relate to cirrhosis though pancreatitis is also possible. Recommend correlation with pancreatic enzymes. 3. Prior cholecystectomy. 4. Mild splenomegaly, increased as compared to the prior CT. 5. Increased fluid within several small bowel loops without transition point to suggest obstruction. Dictated by Hussain Borrero MD @ 10/01/2017 10:29:01 AM Please note that all CT scans at this facility use dose modulation, iterative reconstruction, and/or weight-based dosing when appropriate to reduce radiation dose to as low as reasonably achievable. Dictated by: Hussain Borrero MD @ 10/01/2017 10:29:03 (Electronic Signature) Report Signed by Proxy. [facility]ITALChristel
== END 2017-10-01 11:15 | disposition home or self-care (01) ==
LOC: MW.ED 08:54
DX: R10.9 Unspecified abdominal pain (principal); G89.29 Other chronic pain; Z86.19 Personal history of other infectious and parasitic diseases; J45.909 Unspecified asthma, uncomplicated; E11.9 Type 2 diabetes mellitus without complications; Z88.5 Allergy status to narcotic agent; Z79.899 Other long term (current) drug therapy; Z79.4 Long term (current) use of insulin
CPT/HCPCS: 71045; 74176; 80053; 80305; 81001; 82962; 83690; 84703; 85025; 85610; 87086; 96360; 99284; J7040

== ENCOUNTER 2017-12-18 03:40 | Emergency (ER) | payer MEDICARE, OTHER ==
[2017-12-18] MEDS ORDERED: Ondansetron 4 MG/2 ML SDV IVPUSH ONE (03:49)
[2017-12-18] MEDS ORDERED: Pantoprazole 40 MG Vial IVPUSH ONE (03:50)
[2017-12-18 03:53] VITALS: BP 132/81
[2017-12-18] MEDS ORDERED: Sodium Chloride 0.9% 1,000 ML IV SCH (04:00)
[2017-12-18] MEDS ORDERED: Pantoprazole 80 MG in Sodium Chloride 0.9% 20 ML IV ONE (04:09)
--- NOTE | 2017-12-18 04:14 | EDM.PDOC ---
ED HPI GENERAL MEDICAL PROBLEM - General Chief Complaint: Gastrointestinal Problem Stated Complaint: AMBULANCE Time Seen by Provider: 12/18/17 04:09 - History of Present Illness INITIAL COMMENTS - FREE TEXT/NARRATIVE: HISTORY AND PHYSICAL: History of present illness: Patient's a 42-year-old white female history of hepatitis C alcohol/drug abuse GI bleed who presents with a concern of vomiting blood. Patient states she vomited blood multiple times and upon arrival to ER she's had approximately 400 mL of grossly bloody emesis. She states this began earlier tonight with which he states was severe heartburn she has had prior workup but with the last episode she states her endoscopy was nondiagnostic due to however she was bleeding she states they did determine she did not have an esophageal tear at that time. Review of systems: As per history of present illness and below otherwise all systems reviewed and negative. Past medical history: As per history of present illness and as reviewed below otherwise noncontributory. Surgical history: As per history of present illness and as reviewed below otherwise noncontributory. Social history: No reported history of drug or alcohol abuse. Family history: As per history of present illness and as reviewed below otherwise noncontributory. Physical exam: HEENT: Atraumatic, normocephalic, pupils reactive, negative for conjunctival pallor or scleral icterus, mucous membranes moist, throat clear, neck supple, nontender, trachea midline. Lungs: Clear to auscultation, breath sounds equal bilaterally, chest nontender. Heart: S1S2, regular, negative for clicks, rubs, or JVD. Abdomen: Soft, nondistended, nontender. Negative for masses or hepatosplenomegaly. Negative for costovertebral tenderness. Pelvis: Stable nontender. Genitourinary: Deferred. Rectal: Deferred. Extremities: Atraumatic, negative for cords or calf pain. Neurovascular unremarkable. Neuro: Awake, alert, oriented. Cranial nerves II through XII unremarkable. Cerebellum unremarkable. Motor and sensory unremarkable throughout. Exam nonfocal. Diagnostics: CBC CMP PT/INR troponin EKG lipase chest x-ray Therapeutics: Normal saline 1 L bolus Protonix 80 mg bolus followed by 8 mg per hour drip Impression: #1 acute upper GI bleed #2 history of hepatitis C #3 history of alcohol/drug abuse Definitive disposition and diagnosis as appropriate pending reevaluation and review of above. Neck Pain Score (Numeric/FACES): 7 - Related Data Allergies Allergy/AdvReac Type Severity Reaction Status Date / Time codeine Allergy Itching Verified 10/01/17 09:03 Home Meds: Home Meds Insulin Aspart [Novolog] 10 unit SQ ASDIRECTED 04/22/17 [History] traZODone 25 - 50 mg PO BEDTIME PRN 04/22/17 [History] Insulin Detemir [Levemir] 30 units SQ TID 06/13/17 [History] Furosemide 20 mg PO BID 09/09/17 [History] Gabapentin [Neurontin] 100 mg PO TID 09/09/17 [History] Lactulose 10 ml PO Q4H PRN 09/09/17 [History] OXcarbazepine [Oxcarbazepine] 150 mg PO BID 09/09/17 [History] Spironolactone 50 mg PO DAILY 09/09/17 [History] buPROPion HCl [Wellbutrin Xl] 300 mg PO DAILY 09/09/17 [History] Levothyroxine Sodium [Synthroid] 25 mcg PO ACBREAKFAST 10/01/17 [History] Nadolol [Corgard] 20 mg PO DAILY 10/01/17 [History] Pantoprazole [ProTONIX] 40 mg PO ACBREAKFAST 10/01/17 [History] Sucralfate 1 gm PO QIDACANDBED 10/01/17 [History] Past Medical History - Past Health History Medical/Surgical History: Denies Medical/Surgical History HEENT History: Reports: Impaired Vision Cardiovascular History: Reports: None Other Cardiovascular History: Takes diuretics for portal HTN and swelling Respiratory History: Reports: Asthma Gastrointestinal History: Reports: Cholelithiasis, Hepatitis, Other (See Below) Other Gastrointestinal History: Gastric Ulcer, pancreatitis? and ileius Genitourinary History: Reports: UTI, Recurrent [employer] History: Reports: Musculoskeletal History: Reports: None Other Musculoskeletal History: Herniated disk, lumbar fracture, fractured right ankle Neurological History: Reports: Concussion, Other (See Below) Other Neuro History: 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 - Infectious Disease History Infectious Disease History: Reports: Hepatitis C - Past Surgical History Head Surgeries/Procedures: Reports: None HEENT Surgical History: Reports: None Respiratory Surgical History: Reports: None GI Surgical History: Reports: Cholecystectomy Female Surgical History: Reports: Section, Tubal Ligation Endocrine Surgical History: Reports: None Neurological Surgical History: Reports: Lumbar Spine Musculoskeletal Surgical History: Reports: Other (See Below) Other Musculoskeletal Surgeries/Procedures:: ankle surgery, back surgery Dermatological Surgical History: Reports: None Social & Family History - Family History Family Medical History: Noncontributory - Tobacco Use Smoking Status *Q: Current Every Day Smoker Years of Tobacco use: 25 Packs/Tins Daily: 0.3 - Caffeine Use Caffeine Use: Reports: Coffee Other Caffeine Use: occasional coffee, unsweetened tea - Recreational Drug Use Recreational Drug Use: Yes Drug Use in Last 12 Months: Yes Recreational Drug Type: Reports: Marijuana/Hashish ED ROS GENERAL - Review of Systems Review Of Systems: ROS reveals no pertinent complaints other than HPI. ED EXAM, GENERAL - Physical Exam Exam: See Below (See dictation) Course - Vital Signs Last Recorded V/S: Last Vital Signs Temp 37.9 C 12/18/17 03:50 Pulse 106 H 12/18/17 03:50 Resp 14 12/18/17 03:50 BP 132/81 12/18/17 03:50 Pulse Ox 94 L 12/18/17 03:50 - Orders/Labs/Meds Orders: Active Orders 24 hr Category Date Time Status EKG 12 Lead [EKG Documentation Completion] [RC] STAT Care 12/18/17 03:53 Active CBC WITH AUTO DIFF [HEME] Stat Lab 12/18/17 03:39 Received COMPREHENSIVE METABOLIC PN,CMP [CHEM] Stat Lab 12/18/17 03:39 Received HCG QUANTITATIVE,SERUM [CHEM] Stat Lab 12/18/17 03:39 Received LIPASE [CHEM] Stat Lab 12/18/17 03:39 Received TYPE AND SCREEN [BBK] Stat Lab 12/18/17 03:39 Received Pantoprazole [ProTONIX IV] 80 mg Med 12/18/17 04:09 Ordered Sodium Chloride 0.9% [Normal Saline] 20 ml IV ONETIME Sodium Chloride 0.9% [Normal Saline] 1,000 ml Med 12/18/17 04:00 Active IV ASDIRECTED Medication Orders Sodium Chloride (Normal Saline) 1,000 mls @ 999 mls/hr IV ASDIRECTED JOYCE Last Admin: 12/18/17 04:05 Dose: 999 mls/hr Labs: Laboratory Tests 12/18/17 Range/Units 03:39 INR 1.39 Meds: Medications Generic Name Dose Route Start Last Admin Trade Name Freq PRN Reason Stop Dose Admin Sodium Chloride 1,000 mls @ 999 mls/hr 12/18/17 04:00 12/18/17 04:05 Normal Saline IV 999 mls/hr ASDIRECTED JOYCE Administration Discontinued Medications Generic Name Dose Route Start Last Admin Trade Name Freq PRN Reason Stop Dose Admin Ondansetron HCl 4 mg 12/18/17 03:49 12/18/17 04:05 Zofran IVPUSH 12/18/17 03:50 4 mg ONETIME ONE Administration Pantoprazole Sodium 80 mg 12/18/17 03:50 12/18/17 04:05 Protonix Iv IVPUSH 12/18/17 03:51 80 mg NOW ONE Administration Departure - Departure Time of Disposition: 04:13 Disposition: DC/Tfer to Acute Hospital 02 Condition: Serious Clinical Impression: Gastrointestinal hemorrhage - Discharge Information - My Orders Last 24 Hours: My Active Orders 12/18/17 03:39 CBC WITH AUTO DIFF [HEME] Stat COMPREHENSIVE METABOLIC PN,CMP [CHEM] Stat HCG QUANTITATIVE,SERUM [CHEM] Stat LIPASE [CHEM] Stat TYPE AND SCREEN [BBK] Stat 12/18/17 03:53 EKG 12 Lead [EKG Documentation Completion] [RC] STAT 12/18/17 04:00 Sodium Chloride 0.9% [Normal Saline] 1,000 ml IV ASDIRECTED 12/18/17 04:09 Pantoprazole [ProTONIX IV] 80 mg Sodium Chloride 0.9% [Normal Saline] 20 ml IV ONETIME - Assessment/Plan Last 24 Hours: My Active Orders 12/18/17 03:39 CBC WITH AUTO DIFF [HEME] Stat COMPREHENSIVE METABOLIC PN,CMP [CHEM] Stat HCG QUANTITATIVE,SERUM [CHEM] Stat LIPASE [CHEM] Stat TYPE AND SCREEN [BBK] Stat 12/18/17 03:53 EKG 12 Lead [EKG Documentation Completion] [RC] STAT 12/18/17 04:00 Sodium Chloride 0.9% [Normal Saline] 1,000 ml IV ASDIRECTED 12/18/17 04:09 Pantoprazole [ProTONIX IV] 80 mg Sodium Chloride 0.9% [Normal Saline] 20 ml IV ONETIME
[2017-12-18 04:16] LABS: CHLORIDE,CL 103 mmol/L (98-107); SODIUM,NA 134 mmol/L (136-145)
[2017-12-18] MEDS ORDERED: PANTOPRAZOLE IV ONE ×2 (04:19→04:24)
[2017-12-18] MEDS ORDERED: SODIUM CHLORIDE 0.9% IV ONE ×2 (04:19→04:24)
[2017-12-18] MEDS ORDERED: Pantoprazole 80 MG in Sodium Chloride 0.9% 100 ML IV SCH (04:30)
--- NOTE | 2017-12-19 15:31 | CR ---
EXAM DATE: 12/18/17 PATIENT'S AGE: 42 Patient: RICO RINCON Facility: [place], [place] Site . Site : [id number] Study: XRay Chest [id number] 4:37:11 AM Ordering Physician: Galileo Daley Final Report: INDICATION: vomiting blood TECHNIQUE: Chest 1 view. COMPARISON: 10/01/17 FINDINGS: Cardiovascular and mediastinum: Heart size and vasculature are normal in caliber and appearance. Mediastinum is within normal limits. Lungs and pleural space: Lungs are clear. No sign of infiltrate or mass. No sign of pleural effusion. No pneumothorax. Bones and soft tissues: No significant findings. IMPRESSION: Unremarkable chest. Dictated by: Alfredito Schuster MD @ 12/18/2017 04:54:23 (Electronic Signature) Report Signed by Proxy. ELLIS HOSPITALChristel
== END 2017-12-18 05:14 ==
LOC: MW.ED 03:40
DX: K92.2 Gastrointestinal hemorrhage, unspecified (principal); E11.9 Type 2 diabetes mellitus without complications; F17.210 Nicotine dependence, cigarettes, uncomplicated; Z88.5 Allergy status to narcotic agent; Z79.4 Long term (current) use of insulin; Z79.899 Other long term (current) drug therapy
CPT/HCPCS: 71045; 80053; 83690; 84702; 85025; 85610; 86850; 86870; 86900; 86901; 96361; 96365; 96375; 96376; 99285; C9113; J2405; J7030; J7040

== ENCOUNTER 2018-04-25 00:48 | Emergency (ER) | payer MEDICARE, OTHER ==
--- NOTE | 2018-04-25 00:51 | EDM.PDOC ---
ED HPI GENERAL MEDICAL PROBLEM - General Stated Complaint: SORE THROAT Time Seen by Provider: 04/25/18 00:51 - History of Present Illness INITIAL COMMENTS - FREE TEXT/NARRATIVE: HISTORY AND PHYSICAL: History of present illness: Patient is a 42-year-old white female presents with a concern of sore throat 3 days reported fever chills nausea vomiting or other complaints Review of systems: As per history of present illness and below otherwise all systems reviewed and negative. Past medical history: As per history of present illness and as reviewed below otherwise noncontributory. Surgical history: As per history of present illness and as reviewed below otherwise noncontributory. Social history: No reported history of drug or alcohol abuse. Family history: As per history of present illness and as reviewed below otherwise noncontributory. Physical exam: HEENT: Atraumatic, normocephalic, pupils reactive, negative for conjunctival pallor or scleral icterus, mucous membranes moist, throat mild injection, neck supple, nontender, trachea midline. Lungs: Clear to auscultation, breath sounds equal bilaterally, chest nontender. Heart: S1S2, regular, negative for clicks, rubs, or JVD. Abdomen: Soft, nondistended, nontender. Negative for masses or hepatosplenomegaly. Negative for costovertebral tenderness. Pelvis: Stable nontender. Genitourinary: Deferred. Rectal: Deferred. Extremities: Atraumatic, negative for cords or calf pain. Neurovascular unremarkable. Neuro: Awake, alert, oriented. Cranial nerves II through XII unremarkable. Cerebellum unremarkable. Motor and sensory unremarkable throughout. Exam nonfocal. Diagnostics: Rapid strep Therapeutics: None Impression: #1 pharyngitis Definitive disposition and diagnosis as appropriate pending reevaluation and review of above. - Related Data Allergies Allergy/AdvReac Type Severity Reaction Status Date / Time codeine Allergy Itching Verified 02/10/18 16:07 Home Meds: Home Meds Insulin Aspart [Novolog] 10 unit SQ ASDIRECTED 04/22/17 [History] traZODone 25 - 50 mg PO BEDTIME PRN 04/22/17 [History] Insulin Detemir [Levemir] 30 units SQ TID 06/13/17 [History] Furosemide 20 mg PO BID 09/09/17 [History] Gabapentin [Neurontin] 100 mg PO TID 09/09/17 [History] Lactulose 10 ml PO Q4H PRN 09/09/17 [History] OXcarbazepine [Oxcarbazepine] 150 mg PO BID 09/09/17 [History] Spironolactone 50 mg PO DAILY 09/09/17 [History] buPROPion HCl [Wellbutrin Xl] 300 mg PO DAILY 09/09/17 [History] Levothyroxine Sodium [Synthroid] 25 mcg PO ACBREAKFAST 10/01/17 [History] Nadolol [Corgard] 20 mg PO DAILY 10/01/17 [History] Pantoprazole [ProTONIX] 40 mg PO ACBREAKFAST 10/01/17 [History] Sucralfate 1 gm PO QIDACANDBED 10/01/17 [History] Past Medical History - Past Health History Medical/Surgical History: Denies Medical/Surgical History HEENT History: Reports: Impaired Vision Cardiovascular History: Reports: None Other Cardiovascular History: Takes diuretics for portal HTN and swelling Respiratory History: Reports: Asthma Gastrointestinal History: Reports: Cholelithiasis, Hepatitis, Other (See Below) Other Gastrointestinal History: Gastric Ulcer, pancreatitis? 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 Immunologic History: Reports: None Other Immunologic History: Hep-c Oncologic (Cancer) History: Reports: None Dermatologic History: Reports: Urticaria - Infectious Disease History Infectious Disease History: Reports: Hepatitis C - Past Surgical History Head Surgeries/Procedures: Reports: None HEENT Surgical History: Reports: None Respiratory Surgical History: Reports: None GI Surgical History: Reports: Cholecystectomy Female Surgical History: Reports: Section, Tubal Ligation Endocrine Surgical History: Reports: None Neurological Surgical History: Reports: Lumbar Spine Musculoskeletal Surgical History: Reports: Other (See Below) Other Musculoskeletal Surgeries/Procedures:: ankle surgery, back surgery Dermatological Surgical History: Reports: None Social & Family History - Family History Family Medical History: Noncontributory - Caffeine Use Caffeine Use: Reports: Coffee Other Caffeine Use: occasional coffee, unsweetened tea ED ROS GENERAL - Review of Systems Review Of Systems: ROS reveals no pertinent complaints other than HPI. ED EXAM, GENERAL - Physical Exam Exam: See Below (See dictation) Departure - Departure Time of Disposition: 00:50 Disposition: Home, Self-Care 01 Condition: Good Clinical Impression: Pharyngitis - Discharge Information Additional Instructions: The following information is given to patients seen in the emergency department who are being discharged to home. This information is to outline your options for follow-up care. We provide all patients seen in our emergency department with a follow-up referral. The need for follow-up, as well as the timing and circumstances, are variable depending upon the specifics of your emergency department visit. If you don't have a primary care physician on staff, we will provide you with a referral. We always advise you to contact your personal physician following an emergency department visit to inform them of the circumstance of the visit and for follow-up with them and/or the need for any referrals to a consulting specialist. The emergency department will also refer you to a specialist when appropriate. This referral assures that you have the opportunity for followup care with a specialist. All of these measure are taken in an effort to provide you with optimal care, which includes your followup. Under all circumstances we always encourage you to contact your private physician who remains a resource for coordinating your care. When calling for followup care, please make the office aware that this follow-up is from your recent emergency room visit. If for any reason you are refused follow-up, please contact the [facility] emergency department at and asked to speak to the emergency department charge nurse. Follow-up primary medical doctor as needed as discussed Motrin/Tylenol as directed return as needed as discussed
[2018-04-25 00:55] VITALS: BP 145/81
== END 2018-04-25 01:45 | disposition home or self-care (01) ==
LOC: MW.ED 00:48
DX: J02.9 Acute pharyngitis, unspecified (principal); E11.9 Type 2 diabetes mellitus without complications; J45.909 Unspecified asthma, uncomplicated; Z79.4 Long term (current) use of insulin; Z79.899 Other long term (current) drug therapy; Z88.5 Allergy status to narcotic agent
CPT/HCPCS: 87081; 87880-QW; 99283

== ENCOUNTER 2018-05-08 04:17 | Emergency (ER) | payer MEDICARE, OTHER ==
[2018-05-08] MEDS ORDERED: Sodium Chloride 0.9% 10 ML Syringe FLUSH PRN (04:21)
[2018-05-08] MEDS ORDERED: Pantoprazole 40 MG Vial IVPUSH ONE (04:21)
[2018-05-08] MEDS ORDERED: Ondansetron 4 MG/2 ML SDV IVPUSH ONE ×2 (04:21→04:30)
[2018-05-08] MEDS ORDERED: Sodium Chloride 0.9% 1,000 ML IV ONE ×2 (04:21→05:18)
[2018-05-08] MEDS ORDERED: Sodium Chloride 0.9% 2.5 ML Syringe FLUSH PRN (04:21)
[2018-05-08] MEDS ORDERED: Pantoprazole 80 MG in Sodium Chloride 0.9% 100 ML IV SCH (04:30)
--- NOTE | 2018-05-08 04:36 | EDM.PDOC ---
ED HPI GENERAL MEDICAL PROBLEM - General Chief Complaint: Gastrointestinal Problem Stated Complaint: VOMITING BLOOD Time Seen by Provider: 05/08/18 04:19 - History of Present Illness INITIAL COMMENTS - FREE TEXT/NARRATIVE: HISTORY AND PHYSICAL: History of present illness: The patient is a 42-year-old female who is well known to me as I'm taking care of her multiple times and to has a history of esophageal varices chronic hepatitis C alcohol use and abuse bipolar disorder hypothyroidism type 2 diabetes and a bilateral tubal ligation and cholecystectomy who presents via EMS with complaints of abdominal pain and nausea that started yesterday and proceeded to have multiple episodes of dark bloody emesis and 4-5 loose black stools. According to EMS they showed us a bad dark black vomitus which had about 500 mL and it and that is what the patient showed them was her cumulative amount of vomiting. The patient has been seen here many times and needed transferred to [facility] in [place] for bleeding esophageal varices and she says to me now that she is following with a payroll director in [place] who is planning on doing a liver biopsy to see where her hep C is an another endoscopy. He says she has not been drinking alcohol recently and said that her symptoms started yesterday with some vague abdominal pain and some nausea and this morning she started having vomiting in small amounts that looked dark and then proceeded to have larger amounts of dark bloody vomit this evening. She said there was 500 mL total of this bloody emesis and 4-5 of the loose black stools. EMS gave her Zofran in route and started some IV fluids. She denies any chest pain or shortness of breath and has no new urinary complaints. She has had multiple endoscopies in the past and treatment for her varices but cannot recall the last treatment. The patient says she has been trying to drink Gatorade and water throughout the last 36 hours to keep up with her hydration. A passing out or blacking out but feels generalized weakness Abdomen a brief review of her prior visits over the last few months please see below for more details Review of systems: As per history of present illness and below otherwise all systems reviewed and negative. Past medical history: As per history of present illness and as reviewed below otherwise noncontributory. Surgical history: As per history of present illness and as reviewed below otherwise noncontributory. Social history: No reported history of drug or alcohol abuse. Family history: As per history of present illness and as reviewed below otherwise noncontributory. Physical exam: General: Well-developed well-nourished female who has overall sallow appearance to her skin and is speaking clearly and easily in the ED and on my arrival to the room for interview she is on her phone text thing. Vital signs are noted by me. HEENT: Atraumatic, normocephalic, pupils reactive, negative for conjunctival pallor or scleral icterus, mucous membranes dry and her lips have a rim of black crusting as does her tongue and there is an emesis bag at bedside with some black vomitus which is blood-tinged, throat clear, neck supple, nontender, trachea midline. Lungs: Clear to auscultation, breath sounds equal bilaterally, chest nontender. No worker breathing stridor or wheezing Heart: S1S2, regular rhythm but tachycardic rate on my evaluation, negative for clicks, rubs, or JVD. Abdomen: Soft, nondistended, bowel sounds are slightly hyperactive and there is some tympany on percussion, there is some mild diffuse tenderness throughout the abdomen but does not localize right or left but is mostly in the upper regions and with distraction there is no tenderness rebound or guarding. Negative for masses . Negative for costovertebral tenderness. Pelvis: Stable nontender. Genitourinary: Deferred. Rectal: Deferred. Extremities: Atraumatic, negative for cords or calf pain. Neurovascular unremarkable. No pedal edema or leg asymmetry Neuro: Awake, alert, oriented. Cranial nerves II through XII unremarkable. Cerebellum unremarkable. Motor and sensory unremarkable throughout. Exam nonfocal. Skin: Turgor is normal no overt lesions are seen but a small petechial rashes seen on her anterior chest wall which is pink in color and not purplish and the remainder of his skin has no other rashes Diagnostics: EKG CBC CMP amylase lipase INR alcohol level ammonia level chest x-ray Therapeutics: IV O2 monitor IV fluids Protonix bolus and Protonix drip Zofran lactulose In my brief review her labs her hemoglobin was 7.7 when I had to transfer her out on February 10 and it subsequently came up to 9.4 on February 22 and the last CBC that is in the computer was done by her primary care physician and her hemoglobin was 10.5 with a platelet count of 35 on April 25. According to our computer her liver function tests have not been checked here since the end of January but the patient says she has since seen a payroll director but she is unsure of what those numbers were. Today's hemoglobin is 7.0 with platelet count of 48 and ammonia of 109. We will give the patient a dose of lactulose and lab has told me that because she has antibodies her type and screen will take longer and we may or may not have the ability to transfuse here. As she is currently not vomiting blood or actively bleeding I will approach this with the lab once I get the remainder of her labs. Patient's liver function tests were compared to those performed at the end of January and they are comparable. She has not had any liver function tests in the interim in our computer. 0535: Case was discussed with Dr. Hayes our hospitalist and I have gone over all of the patient's labs and history with him. He feels uncomfortable with the patient staying here as we do not have blood available and we are unsure if with her antibody situation we will have blood available even in the 2-3 hours at the lab was quoting. He also is uncomfortable with the fact that we do not have gastroenterology and if she starts bleeding or vomiting more we will not have the resources to care for her. He is also concerned about her low platelet count as we do not have platelets here. He does not feel comfortable with admission here and will prefer transfer to [facility] in [place]. I discussed all labs and Dr. Hayes's conversation with me with the patient and she is very upset saying that she does not want to go to [facility] and that this physician she has seen in [place] is going to do some procedures and give her medication in a week and a half and she does not want to miss that. I tried to enforce to her that her doctor is not going to start any new medication or do a biopsy or any procedures with this low hemoglobin and that we need to get her counts of prior to any of those procedures. I do not feel that she needs to be flown and she can go by ground as she is currently stable here and I told her that in an emergency I can send some O- blood with her in the ambulance to be used only as needed in case she starts having hemodynamic instability or more bleeding. She is tearful in the room and wanted to call family to have a dialogue about this transfer. She is aware that it is not safe to admit her here because of her lack of resources in light of her 0553: Case is discussed with Dr. Cartwright at [facility] and he accepts the patient for transfer. He is aware that I will be sending a unit of blood which is antibody negative, and as appropriate as can be determined for the patient safely with the information they have, with the patient only to be used by EMS if there is instability or active bleeding. I will instruct EMS to return the blood if it is not used. I've rediscussed the need for this transfer with the patient and although initially she was upset and not agreeable she is now understanding and agreeable. Critical care time excluding procedures:31min Impression: Upper GI bleed with history of same and esophageal varices; anemia and thrombocytopenia; hyperammonemia ;history of chronic hep C Definitive disposition and diagnosis as appropriate pending reevaluation and review of above. Abdomen Pain Score (Numeric/FACES): 9 - Related Data Allergies Allergy/AdvReac Type Severity Reaction Status Date / Time codeine Allergy Itching Verified 05/08/18 04:18 Home Meds: Home Meds Insulin Aspart [Novolog] 10 unit SQ ASDIRECTED 04/22/17 [History] traZODone 25 - 50 mg PO BEDTIME PRN 04/22/17 [History] Insulin Detemir [Levemir] 30 units SQ TID 06/13/17 [History] Furosemide 20 mg PO BID 09/09/17 [History] Gabapentin [Neurontin] 100 mg PO TID 09/09/17 [History] Lactulose 10 ml PO Q4H PRN 09/09/17 [History] OXcarbazepine [Oxcarbazepine] 150 mg PO BID 09/09/17 [History] Spironolactone 50 mg PO DAILY 09/09/17 [History] buPROPion HCl [Wellbutrin Xl] 300 mg PO DAILY 09/09/17 [History] Levothyroxine Sodium [Synthroid] 25 mcg PO ACBREAKFAST 10/01/17 [History] Nadolol [Corgard] 20 mg PO DAILY 10/01/17 [History] Pantoprazole [ProTONIX] 40 mg PO ACBREAKFAST 10/01/17 [History] Sucralfate 1 gm PO QIDACANDBED 10/01/17 [History] Past Medical History - Past Health History Medical/Surgical History: Denies Medical/Surgical History HEENT History: Reports: Impaired Vision Cardiovascular History: Reports: None Other Cardiovascular History: Takes diuretics for portal HTN and swelling Respiratory History: Reports: Asthma Gastrointestinal History: Reports: Cholelithiasis, Hepatitis, Other (See Below) Other Gastrointestinal History: Gastric Ulcer, pancreatitis? and ileius Genitourinary History: Reports: UTI, Recurrent [facility] History: Reports: Musculoskeletal History: Reports: None Other Musculoskeletal History: Herniated disk, lumbar fracture, fractured right ankle Neurological History: Reports: Concussion, Other (See Below) Other Neuro History: 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 Immunologic History: Reports: None Other Immunologic History: Hep-c Oncologic (Cancer) History: Reports: None Dermatologic History: Reports: Urticaria - Infectious Disease History Infectious Disease History: Reports: Hepatitis C - Past Surgical History Head Surgeries/Procedures: Reports: None HEENT Surgical History: Reports: None Respiratory Surgical History: Reports: None GI Surgical History: Reports: Cholecystectomy Female Surgical History: Reports: Section, Tubal Ligation Endocrine Surgical History: Reports: None Neurological Surgical History: Reports: Lumbar Spine Musculoskeletal Surgical History: Reports: Other (See Below) Other Musculoskeletal Surgeries/Procedures:: ankle surgery, back surgery Dermatological Surgical History: Reports: None Social & Family History - Family History Family Medical History: Noncontributory - Tobacco Use Smoking Status *Q: Current Every Day Smoker Years of Tobacco use: 20 Packs/Tins Daily: 0.3 - Caffeine Use Caffeine Use: Reports: Soda Other Caffeine Use: occasional coffee, unsweetened tea - Recreational Drug Use Recreational Drug Use: No ED ROS GENERAL - Review of Systems Review Of Systems: ROS reveals no pertinent complaints other than HPI. ED EXAM, GENERAL - Physical Exam Exam: See Below (See dictation) Course - Vital Signs Last Recorded V/S: Last Vital Signs Temp 37 C 05/08/18 05:50 Pulse 110 H 05/08/18 05:50 Resp 20 05/08/18 05:50 BP 125/78 05/08/18 05:50 Pulse Ox 98 05/08/18 05:50 - Orders/Labs/Meds Orders: Active Orders 24 hr Category Date Time Status Cardiac Monitoring [RC] . DIRECTED Care 05/08/18 04:20 Active EKG Documentation Completion [RC] STAT Care 05/08/18 04:37 Active Oxygen Therapy, ED [RC] ASDIRECTED Care 05/08/18 04:20 Active Pulse Oximetry [RC] ASDIRECTED Care 05/08/18 04:20 Active TYPE AND SCREEN [BBK] Stat Lab 05/08/18 04:40 Received Pantoprazole [ProTONIX IV] 80 mg Med 05/08/18 04:30 Active Sodium Chloride 0.9% [Normal Saline] 100 ml IV .Continuous Sodium Chloride 0.9% [Normal Saline] 1,000 ml Med 05/08/18 05:30 Active IV ASDIRECTED Sodium Chloride 0.9% [Normal Saline] 1,000 ml Med 05/08/18 05:18 Active IV STAT Sodium Chloride 0.9% [Saline Flush] Med 05/08/18 04:21 Active 10 ml FLUSH ASDIRECTED PRN Sodium Chloride 0.9% [Saline Flush] Med 05/08/18 04:21 Active 2.5 ml FLUSH ASDIRECTED PRN Saline Lock Insert [OM.PC] Stat Oth 05/08/18 04:20 Ordered Medication Orders Pantoprazole Sodium 80 mg/ (Sodium Chloride) 100 mls @ 10 mls/hr IV .Continuous JOYCE Last Admin: 05/08/18 04:53 Dose: 10 mls/hr Sodium Chloride (Normal Saline) 1,000 mls @ 999 mls/hr IV STAT ONE Stop: 05/08/18 06:18 Last Admin: 05/08/18 05:46 Dose: 999 mls/hr Sodium Chloride (Normal Saline) 1,000 mls @ 150 mls/hr IV ASDIRECTED JOYCE Sodium Chloride (Saline Flush) 10 ml FLUSH ASDIRECTED PRN PRN Reason: Keep Vein Open Sodium Chloride (Saline Flush) 2.5 ml FLUSH ASDIRECTED PRN PRN Reason: Keep Vein Open Labs: Laboratory Tests 05/08/18 05/08/18 05/08/18 Range/Units 04:40 04:40 04:40 WBC 6.50 (4.0-11.0) K/uL RBC 2.63 L (4.30-5.90) M/uL Hgb 7.0 L (12.0-16.0) g/dL Hct 22.4 L (36.0-46.0) % MCV 85.2 (80.0-98.0) fL MCH 26.6 L (27.0-32.0) pg MCHC 31.3 (31.0-37.0) g/dL RDW Std Deviation 69.1 H (28.0-62.0) fl RDW Coeff of Jovan 23 H (11.0-15.0) % Plt Count 48 L (150-400) K/uL Neut % (Auto) 63.5 (48.0-80.0) % Lymph % (Auto) 25.7 (16.0-40.0) % Marion % (Auto) 8.5 (0.0-15.0) % Eos % (Auto) 1.8 (0.0-7.0) % Baso % (Auto) 0.5 (0.0-1.5) % Neut # (Auto) 4.1 (1.4-5.7) K/uL Lymph # (Auto) 1.7 (0.6-2.4) K/uL Marion # (Auto) 0.6 (0.0-0.8) K/uL Eos # (Auto) 0.1 (0.0-0.7) K/uL Baso # (Auto) 0.0 (0.0-0.1) K/uL Nucleated RBC % 0.0 /100WBC Nucleated RBCs # 0 K/uL INR 1.53 Sodium 132 L (136-145) mmol/L Potassium 4.5 (3.5-5.1) mmol/L Chloride 100 (98-107) mmol/L Carbon Dioxide 23.0 (21.0-32.0) mmol/L BUN 24 H (7.0-18.0) mg/dL Creatinine 0.9 (0.6-1.0) mg/dL Est Cr Clr Drug Dosing 79.99 mL/min Estimated GFR (MDRD) > 60.0 ml/min Glucose 311 H (74-106) mg/dL Calcium 8.2 L (8.5-10.1) mg/dL Total Bilirubin 2.8 H (0.2-1.0) mg/dL AST 131 H (15-37) IU/L ALT 72 H (14-63) IU/L Alkaline Phosphatase 162 H (46-116) U/L Ammonia (19-54) ug/dL Total Protein 6.1 L (6.4-8.2) g/dL Albumin 1.8 L (3.4-5.0) g/dL Globulin 4.3 H (2.6-4.0) g/dL Albumin/Globulin Ratio 0.4 L (0.9-1.6) Amylase 54 (25-115) U/L Lipase 138 (73-393) U/L Ethyl Alcohol <3 mg/dL 05/08/18 Range/Units 04:40 WBC (4.0-11.0) K/uL RBC (4.30-5.90) M/uL Hgb (12.0-16.0) g/dL Hct (36.0-46.0) % MCV (80.0-98.0) fL MCH (27.0-32.0) pg MCHC (31.0-37.0) g/dL RDW Std Deviation (28.0-62.0) fl RDW Coeff of Jovan (11.0-15.0) % Plt Count (150-400) K/uL Neut % (Auto) (48.0-80.0) % Lymph % (Auto) (16.0-40.0) % Marion % (Auto) (0.0-15.0) % Eos % (Auto) (0.0-7.0) % Baso % (Auto) (0.0-1.5) % Neut # (Auto) (1.4-5.7) K/uL Lymph # (Auto) (0.6-2.4) K/uL Marion # (Auto) (0.0-0.8) K/uL Eos # (Auto) (0.0-0.7) K/uL Baso # (Auto) (0.0-0.1) K/uL Nucleated RBC % /100WBC Nucleated RBCs # K/uL INR Sodium (136-145) mmol/L Potassium (3.5-5.1) mmol/L Chloride (98-107) mmol/L Carbon Dioxide (21.0-32.0) mmol/L BUN (7.0-18.0) mg/dL Creatinine (0.6-1.0) mg/dL Est Cr Clr Drug Dosing mL/min Estimated GFR (MDRD) ml/min Glucose (74-106) mg/dL Calcium (8.5-10.1) mg/dL Total Bilirubin (0.2-1.0) mg/dL AST (15-37) IU/L ALT (14-63) IU/L Alkaline Phosphatase (46-116) U/L Ammonia 109 H (19-54) ug/dL Total Protein (6.4-8.2) g/dL Albumin (3.4-5.0) g/dL Globulin (2.6-4.0) g/dL Albumin/Globulin Ratio (0.9-1.6) Amylase (25-115) U/L Lipase (73-393) U/L Ethyl Alcohol mg/dL Meds: Medications Generic Name Dose Route Start Last Admin Trade Name Freq PRN Reason Stop Dose Admin Pantoprazole Sodium 80 mg/ 100 mls @ 10 mls/hr 05/08/18 04:30 05/08/18 04:53 Sodium Chloride IV 10 mls/hr .Continuous JOYCE Administration Sodium Chloride 1,000 mls @ 999 mls/hr 05/08/18 05:18 05/08/18 05:46 Normal Saline IV 05/08/18 06:18 999 mls/hr STAT ONE Administration Sodium Chloride 1,000 mls @ 150 mls/hr 05/08/18 05:30 Normal Saline IV ASDIRECTED JOYCE Sodium Chloride 10 ml 05/08/18 04:21 Saline Flush FLUSH ASDIRECTED PRN Keep Vein Open Sodium Chloride 2.5 ml 05/08/18 04:21 Saline Flush FLUSH ASDIRECTED PRN Keep Vein Open Discontinued Medications Generic Name Dose Route Start Last Admin Trade Name Freq PRN Reason Stop Dose Admin Sodium Chloride 1,000 mls @ 999 mls/hr 05/08/18 04:21 05/08/18 04:31 Normal Saline IV 05/08/18 05:21 999 mls/hr STAT ONE Administration Lactulose 20 gm 05/08/18 05:13 05/08/18 05:20 Chronulac PO 05/08/18 05:14 20 gm ONETIME ONE Administration Ondansetron HCl 8 mg 05/08/18 04:21 05/08/18 04:36 Zofran IVPUSH 05/08/18 04:22 Not Given ONETIME ONE Ondansetron HCl 4 mg 05/08/18 04:30 05/08/18 04:35 Zofran IVPUSH 05/08/18 04:31 4 mg ONETIME ONE Administration Pantoprazole Sodium 80 mg 05/08/18 04:21 05/08/18 04:37 Protonix Iv IVPUSH 05/08/18 04:22 80 mg .BOLUS ONE Administration Departure - Departure Time of Disposition: 05:55 Disposition: DC/Tfer to Acute Hospital 02 Condition: Fair Clinical Impression: Upper GI bleeding, Chronic hepatitis C Esophageal varices Qualifiers: Esophageal varices type: unspecified type Esophageal varices bleeding: with bleeding Qualified Code(s): I85.01 - Esophageal varices with bleeding - Discharge Information Forms: ED Department Discharge - My Orders Last 24 Hours: My Active Orders 05/08/18 04:20 Cardiac Monitoring [RC] . DIRECTED Oxygen Therapy, ED [RC] ASDIRECTED Pulse Oximetry [RC] ASDIRECTED Saline Lock Insert [OM.PC] Stat 05/08/18 04:21 Sodium Chloride 0.9% [Saline Flush] 10 ml FLUSH ASDIRECTED PRN Sodium Chloride 0.9% [Saline Flush] 2.5 ml FLUSH ASDIRECTED PRN 05/08/18 04:30 Pantoprazole [ProTONIX IV] 80 mg Sodium Chloride 0.9% [Normal Saline] 100 ml IV .Continuous 05/08/18 04:37 EKG Documentation Completion [RC] STAT 05/08/18 04:40 TYPE AND SCREEN [BBK] Stat 05/08/18 05:18 Sodium Chloride 0.9% [Normal Saline] 1,000 ml IV STAT 05/08/18 05:30 Sodium Chloride 0.9% [Normal Saline] 1,000 ml IV ASDIRECTED - Assessment/Plan Last 24 Hours: My Active Orders 05/08/18 04:20 Cardiac Monitoring [RC] . DIRECTED Oxygen Therapy, ED [RC] ASDIRECTED Pulse Oximetry [RC] ASDIRECTED Saline Lock Insert [OM.PC] Stat 05/08/18 04:21 Sodium Chloride 0.9% [Saline Flush] 10 ml FLUSH ASDIRECTED PRN Sodium Chloride 0.9% [Saline Flush] 2.5 ml FLUSH ASDIRECTED PRN 05/08/18 04:30 Pantoprazole [ProTONIX IV] 80 mg Sodium Chloride 0.9% [Normal Saline] 100 ml IV .Continuous 05/08/18 04:37 EKG Documentation Completion [RC] STAT 05/08/18 04:40 TYPE AND SCREEN [BBK] Stat 05/08/18 05:18 Sodium Chloride 0.9% [Normal Saline] 1,000 ml IV STAT 05/08/18 05:30 Sodium Chloride 0.9% [Normal Saline] 1,000 ml IV ASDIRECTED
--- NOTE | 2018-05-08 04:57 | CR ---
INDICATION: Shortness of breath COMPARISON: 02/10/2018 FINDINGS: An erect single view of the chest was obtained at 0425 hours. The lungs remain clear. No focal or diffuse infiltrates are present. The heart remains normal in size. The mediastinum is normal in appearance. The osseous structures are normal in appearance for the patient`s age. IMPRESSION: Normal chest single view. Dictated by Shyam Bartlett MD @ May 08 2018 4:55AM Signed by Dr. Shyam Bartlett @ May 08 2018 4:56AM
[2018-05-08] MEDS ORDERED: Lactulose Soln 10 GM/15 ML 15 ML UD Cup PO ONE (05:13)
[2018-05-08 05:16] LABS: CHLORIDE,CL 100 mmol/L (98-107); SODIUM,NA 132 mmol/L (136-145)
[2018-05-08] MEDS ORDERED: Sodium Chloride 0.9% 1,000 ML IV SCH (05:30)
[2018-05-08 05:51] VITALS: BP 125/78
== END 2018-05-08 07:03 ==
LOC: MW.ED 04:17
DX: K92.2 Gastrointestinal hemorrhage, unspecified (principal); I85.01 Esophageal varices with bleeding; B18.2 Chronic viral hepatitis C; D64.9 Anemia, unspecified; D69.6 Thrombocytopenia, unspecified; E11.9 Type 2 diabetes mellitus without complications; J45.909 Unspecified asthma, uncomplicated; F31.9 Bipolar disorder, unspecified; F17.210 Nicotine dependence, cigarettes, uncomplicated; Z88.5 Allergy status to narcotic agent; Z79.4 Long term (current) use of insulin; Z79.899 Other long term (current) drug therapy
CPT/HCPCS: 36415; 71045; 80053; 82140; 82150; 83690; 85025; 85610; 93005; 96365; 96366; 96375; 96376; 99285; A9270; C9113; G0480; J2405; J7030; J7040

== ENCOUNTER 2018-05-12 15:26 | Emergency (ER) | payer MEDICARE, OTHER ==
[2018-05-12 15:46] VITALS: BP 124/62
[2018-05-12] MEDS ORDERED: Sodium Chloride 0.9% 2.5 ML Syringe FLUSH PRN (15:48)
[2018-05-12] MEDS ORDERED: Sodium Chloride 0.9% 10 ML Syringe FLUSH PRN (15:48)
--- NOTE | 2018-05-12 16:04 | EDM.PDOC ---
ED HPI GENERAL MEDICAL PROBLEM - General Chief Complaint: Abdominal Pain Stated Complaint: SPOKE TO NURSE Time Seen by Provider: 05/12/18 16:04 Source of Information: Reports: Patient History Limitations: Reports: No Limitations - History of Present Illness INITIAL COMMENTS - FREE TEXT/NARRATIVE: HISTORY AND PHYSICAL: History of present illness: Patient is a 42-year-old female well-known to the ED with history of esophageal varices, chronic hepatitis C, liver cirrhosis, alcohol use, diabetes here for abdominal pain and distention. Patient was seen in the ED on 05/08/18 for bloody emesis and dark stools. She was transferred to where she has been multiple times for bleeding esophageal varices. She had an endoscopy at her most recent admission and was discharged 2 days ago. She sees hepatology in [place] for her chronic hep C. She states since last night she has developed a lot of swelling and pain in her abdomen. She is passing gas and having normal nonbloody stools and denies vomiting, fevers, chest pain, SOB. Review of systems: As per history of present illness and below otherwise all systems reviewed and negative. Past medical history: As per history of present illness and as reviewed below otherwise noncontributory. Surgical history: As per history of present illness and as reviewed below otherwise noncontributory. Social history: No reported history of drug or alcohol abuse. Family history: As per history of present illness and as reviewed below otherwise noncontributory. Physical exam: General: Patient sitting comfortably in no acute distress and nontoxic appearing HEENT: Atraumatic, normocephalic, pupils reactive, negative for conjunctival pallor or scleral icterus, mucous membranes moist, throat clear, neck supple, nontender, trachea midline. No meningeal signs. Lungs: Clear to auscultation, breath sounds equal bilaterally, chest nontender. Heart: S1S2, regular, negative for clicks, rubs, or overt murmur. Abdomen: Soft, nondistended, nontender. Negative for masses or hepatosplenomegaly. Negative for costovertebral tenderness. Pelvis: Stable nontender. Genitourinary: Deferred. Rectal: Deferred. Extremities: Atraumatic, negative for cords or calf pain. Neurovascular unremarkable. Neuro: Awake, alert, oriented. Cranial nerves II through XII unremarkable. Cerebellum unremarkable. Motor and sensory unremarkable throughout. Exam nonfocal. Notes: Diagnostics: CBC, CMP, CT abdomen/pelvis Therapeutics: 2mg Morphine IV 25mg Benadryl IV Prescriptions: None Impression: Abdominal pain, ascites Plan: Patient was informed of her results, CT shows abdominal ascites which has worsened clinically and I advised transfer to given her recent stay, history, and lack of interventional radiology until Tuesday. Patient and her were upset by this and Dr. Gurrola was involved to explain why we recommended transfer. Patient refused transfer and also refused to sign AMA form. Definitive disposition and diagnosis as appropriate pending reevaluation and review of above. Abdomen Pain Score (Numeric/FACES): 10 - Related Data Allergies Allergy/AdvReac Type Severity Reaction Status Date / Time codeine Allergy Itching Verified 05/12/18 15:46 Home Meds: Home Meds Insulin Aspart [Novolog] 10 unit SQ ASDIRECTED 04/22/17 [History] traZODone 25 - 50 mg PO BEDTIME PRN 04/22/17 [History] Insulin Detemir [Levemir] 30 units SQ DAILY 06/13/17 [History] Furosemide 20 mg PO BID 09/09/17 [History] Gabapentin [Neurontin] 100 mg PO TID 09/09/17 [History] Lactulose 10 ml PO Q4H PRN 09/09/17 [History] OXcarbazepine [Oxcarbazepine] 150 mg PO BID 09/09/17 [History] Spironolactone 50 mg PO DAILY 09/09/17 [History] buPROPion HCl [Wellbutrin Xl] 300 mg PO DAILY 09/09/17 [History] Levothyroxine Sodium [Synthroid] 25 mcg PO ACBREAKFAST 10/01/17 [History] Nadolol [Corgard] 20 mg PO DAILY 10/01/17 [History] Pantoprazole [ProTONIX] 40 mg PO ACBREAKFAST 10/01/17 [History] Sucralfate 1 gm PO QIDACANDBED 10/01/17 [History] Past Medical History - Past Health History Medical/Surgical History: Denies Medical/Surgical History HEENT History: Reports: Impaired Vision Cardiovascular History: Reports: None Other Cardiovascular History: Takes diuretics for portal HTN and swelling Respiratory History: Reports: Asthma Gastrointestinal History: Reports: Cholelithiasis, GI Bleed, Hepatitis, Other ( See Below) Other Gastrointestinal History: Gastric Ulcer, pancreatitis? 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 Immunologic History: Reports: None Other Immunologic History: Hep-c Oncologic (Cancer) History: Reports: None Dermatologic History: Reports: Urticaria - Infectious Disease History Infectious Disease History: Reports: Hepatitis C - Past Surgical History Head Surgeries/Procedures: Reports: None HEENT Surgical History: Reports: None Respiratory Surgical History: Reports: None GI Surgical History: Reports: Cholecystectomy, EGD Female Surgical History: Reports: Section, Tubal Ligation Endocrine Surgical History: Reports: None Neurological Surgical History: Reports: Lumbar Spine Musculoskeletal Surgical History: Reports: Other (See Below) Other Musculoskeletal Surgeries/Procedures:: ankle surgery, back surgery Dermatological Surgical History: Reports: None Social & Family History - Family History Family Medical History: Noncontributory - Tobacco Use Smoking Status *Q: Former Smoker Used Tobacco, but Quit: Yes Month/Year Tobacco Last Used: - Caffeine Use Caffeine Use: Reports: Soda Other Caffeine Use: occasional coffee, unsweetened tea - Recreational Drug Use Recreational Drug Use: No ED ROS GENERAL - Review of Systems Review Of Systems: ROS reveals no pertinent complaints other than HPI. ED EXAM, GI/ABD - Physical Exam Exam: See Below (see dictation) Course - Vital Signs Last Recorded V/S: Last Vital Signs Temp 98.5 F 05/12/18 15:43 Pulse 78 05/12/18 15:43 Resp 18 05/12/18 15:43 BP 124/62 05/12/18 15:43 Pulse Ox 99 05/12/18 15:43 - Orders/Labs/Meds Orders: Active Orders 24 hr Category Date Time Status Sodium Chloride 0.9% [Saline Flush] Med 05/12/18 15:48 Active 10 ml FLUSH ASDIRECTED PRN Sodium Chloride 0.9% [Saline Flush] Med 05/12/18 15:48 Active 2.5 ml FLUSH ASDIRECTED PRN Saline Lock Insert [OM.PC] Stat Oth 05/12/18 15:48 Ordered Medication Orders Sodium Chloride (Saline Flush) 10 ml FLUSH ASDIRECTED PRN PRN Reason: Keep Vein Open Last Admin: 05/12/18 16:18 Dose: 10 ml Sodium Chloride (Saline Flush) 2.5 ml FLUSH ASDIRECTED PRN PRN Reason: Keep Vein Open Last Admin: 05/12/18 16:18 Dose: 2.5 ml Labs: Laboratory Tests 05/12/18 05/12/18 Range/Units 16:01 16:01 WBC 2.59 L (4.0-11.0) K/uL RBC 3.20 L (4.30-5.90) M/uL Hgb 8.9 L (12.0-16.0) g/dL Hct 27.0 L (36.0-46.0) % MCV 84.4 (80.0-98.0) fL MCH 27.8 (27.0-32.0) pg MCHC 33.0 (31.0-37.0) g/dL RDW Std Deviation 66.9 H (28.0-62.0) fl RDW Coeff of Jovan 22 H (11.0-15.0) % Plt Count 41 L (150-400) K/uL Neut % (Auto) 43.2 L (48.0-80.0) % Lymph % (Auto) 40.2 H (16.0-40.0) % Cataño % (Auto) 10.8 (0.0-15.0) % Eos % (Auto) 5.4 (0.0-7.0) % Baso % (Auto) 0.4 (0.0-1.5) % Neut # (Auto) 1.1 L (1.4-5.7) K/uL Lymph # (Auto) 1.0 (0.6-2.4) K/uL Cataño # (Auto) 0.3 (0.0-0.8) K/uL Eos # (Auto) 0.1 (0.0-0.7) K/uL Baso # (Auto) 0.0 (0.0-0.1) K/uL Nucleated RBC % 0.0 /100WBC Nucleated RBCs # 0 K/uL Sodium 130 L (136-145) mmol/L Potassium 3.5 (3.5-5.1) mmol/L Chloride 101 (98-107) mmol/L Carbon Dioxide 25.1 (21.0-32.0) mmol/L BUN 7 (7.0-18.0) mg/dL Creatinine 0.8 (0.6-1.0) mg/dL Est Cr Clr Drug Dosing 89.99 mL/min Estimated GFR (MDRD) > 60.0 ml/min Glucose 324 H (74-106) mg/dL Calcium 7.5 L (8.5-10.1) mg/dL Total Bilirubin 2.3 H (0.2-1.0) mg/dL AST 123 H (15-37) IU/L ALT 71 H (14-63) IU/L Alkaline Phosphatase 238 H (46-116) U/L Total Protein 6.2 L (6.4-8.2) g/dL Albumin 1.8 L (3.4-5.0) g/dL Globulin 4.4 H (2.6-4.0) g/dL Albumin/Globulin Ratio 0.4 L (0.9-1.6) Meds: Medications Generic Name Dose Route Start Last Admin Trade Name Freq PRN Reason Stop Dose Admin Sodium Chloride 10 ml 05/12/18 15:48 05/12/18 16:18 Saline Flush FLUSH 10 ml ASDIRECTED PRN Administration Keep Vein Open Sodium Chloride 2.5 ml 05/12/18 15:48 05/12/18 16:18 Saline Flush FLUSH 2.5 ml ASDIRECTED PRN Administration Keep Vein Open Discontinued Medications Generic Name Dose Route Start Last Admin Trade Name Freq PRN Reason Stop Dose Admin Diphenhydramine HCl 25 mg 05/12/18 16:11 05/12/18 16:18 Benadryl IVPUSH 05/12/18 16:12 25 mg ONETIME ONE Administration Sodium Chloride 1,000 mls @ 999 mls/hr 05/12/18 16:56 05/12/18 17:34 Normal Saline IV 05/12/18 17:56 999 mls/hr STAT ONE Administration Iopamidol 100 ml 05/12/18 17:33 05/12/18 17:33 Isovue Multipack-370 (76%) IVPUSH 05/12/18 17:34 100 ml ONETIME ONE Administration Morphine Sulfate 2 mg 05/12/18 16:10 05/12/18 16:18 Morphine IVPUSH 05/12/18 16:11 2 mg ONETIME ONE Administration Departure - Departure Time of Disposition: 18:42 Disposition: Home, Self-Care 01 Condition: Good Clinical Impression: Ascites Abdominal pain Qualifiers: Abdominal location: generalized Qualified Code(s): R10.84 - Generalized abdominal pain - Discharge Information Instructions: Abdominal Pain, Adult, Ascites Referrals: PCP,Unknown [Primary Care Provider] - Forms: ED Department Discharge Additional Instructions: The following information is given to patients seen in the emergency department who are being discharged to home. This information is to outline your options for follow-up care. We provide all patients seen in our emergency department with a follow-up referral. The need for follow-up, as well as the timing and circumstances, are variable depending upon the specifics of your emergency department visit. If you don't have a primary care physician on staff, we will provide you with a referral. We always advise you to contact your personal physician following an emergency department visit to inform them of the circumstance of the visit and for follow-up with them and/or the need for any referrals to a consulting specialist. The emergency department will also refer you to a specialist when appropriate. This referral assures that you have the opportunity for follow-up care with a specialist. All of these measure are taken in an effort to provide you with optimal care, which includes your follow-up. Under all circumstances we always encourage you to contact your private physician who remains a resource for coordinating your care. When calling for follow-up care, please make the office aware that this follow-up is from your recent emergency room visit. If for any reason you are refused follow-up, please contact the [facility] Emergency Department at and asked to speak to the emergency department charge nurse. [facility] [address] [place] [id number] Refused transfer to . - My Orders Last 24 Hours: My Active Orders 05/12/18 15:48 Sodium Chloride 0.9% [Saline Flush] 10 ml FLUSH ASDIRECTED PRN Sodium Chloride 0.9% [Saline Flush] 2.5 ml FLUSH ASDIRECTED PRN Saline Lock Insert [OM.PC] Stat - Assessment/Plan Last 24 Hours: My Active Orders 05/12/18 15:48 Sodium Chloride 0.9% [Saline Flush] 10 ml FLUSH ASDIRECTED PRN Sodium Chloride 0.9% [Saline Flush] 2.5 ml FLUSH ASDIRECTED PRN Saline Lock Insert [OM.PC] Stat
[2018-05-12] MEDS ORDERED: Morphine 2 MG/ML Syringe IVPUSH ONE (16:10)
[2018-05-12] MEDS ORDERED: diphenhydrAMINE 50 MG/ML SDV IVPUSH ONE (16:11)
[2018-05-12 16:42] LABS: CHLORIDE,CL 101 mmol/L (98-107); SODIUM,NA 130 mmol/L (136-145)
[2018-05-12] MEDS ORDERED: Sodium Chloride 0.9% 1,000 ML IV ONE (16:56)
[2018-05-12] MEDS ORDERED: Iopamidol 755 MG/ML 500 ML Multipack Bottle IVPUSH ONE (17:33)
--- NOTE | 2018-05-12 18:27 | CT ---
INDICATION: Abdominal pain and bloating. TECHNIQUE: A CT volumetric acquisition was performed of the abdomen and pelvis during intravenous infusion of 100 cc of Isovue-370 nonionic intravenous contrast. Comparison : CT abdomen pelvis dated 10/01/2017 FINDINGS: CT images demonstrate a cirrhotic appearance of the liver. There is no evidence of a focal liver mass or intrahepatic bile duct dilatation. The spleen shows mild enlargement. There are portosystemic collateral venous vessels within the upper abdomen and periumbilical region. There is a small to moderate amount of ascitic fluid. There is new soft tissue anasarca within the soft tissues of the flanks and pelvis. There is no evidence of mass or inflammation within the pancreas. Gallbladder has been resected. The adrenal glands appear normal. There is a small cortical cyst within the posterior mid left kidney. The right kidney appears normal. There is no evidence retroperitoneal lymphadenopathy within the abdomen and pelvis. The small intestine appears normal. The uterus and left ovary appear normal. The right ovary is located within the anterior right pelvis and contains a 3.2 cm cyst. IMPRESSION: 1. As compared to the prior exam of 10/01/2017 there has been development of soft tissue anasarca and ascites. The cirrhotic liver and mildly enlarged spleen appear stable. 2. 3.2 cm right ovarian cyst identified. This could be evaluated further with a focused ultrasound exam. Please note that all CT scans at this facility use dose modulation, iterative reconstruction, and/or weight-based dosing when appropriate to reduce radiation dose to as low as reasonably achievable. Dictated by Edi Watters MD @ May 12 2018 6:16PM Signed by Dr. Edi Watters @ May 12 2018 6:26PM
== END 2018-05-12 19:00 | disposition home or self-care (01) ==
LOC: MW.ED 15:26
DX: R18.8 Other ascites (principal); E11.9 Type 2 diabetes mellitus without complications; Z79.4 Long term (current) use of insulin; Z87.891 Personal history of nicotine dependence; Z79.899 Other long term (current) drug therapy; Z88.5 Allergy status to narcotic agent
CPT/HCPCS: 36415; 74177; 80053; 85025; 96361; 96374; 96375; 99284; J1200; J2270; J7040; Q9967

== ENCOUNTER 2018-05-15 15:58 | Observation (INO) | payer MEDICARE ==
[2018-05-15] MEDS ORDERED: Morphine 2 MG/ML Syringe IVPUSH ONE (16:12)
[2018-05-15] MEDS ORDERED: Sodium Chloride 0.9% 1,000 ML IV SCH (16:15)
--- NOTE | 2018-05-15 16:19 | EDM.PDOC ---
ED HPI GENERAL MEDICAL PROBLEM - General Chief Complaint: Abdominal Pain Stated Complaint: STOMACH PAIN Time Seen by Provider: 05/15/18 16:13 Source of Information: Reports: Patient History Limitations: Reports: No Limitations - History of Present Illness INITIAL COMMENTS - FREE TEXT/NARRATIVE: HISTORY AND PHYSICAL: History of present illness: Patient is a 42-year-old female who presents to the emergency room with complaints of right upper quadrant abdominal pain. Patient rates her pain a 9 out of 10, constant and sharp. Patient was admitted recently to [facility] for a GI bleed. She was discharged about a week ago and was told to follow up with her GI specialist in [place]. Since her discharge, patient states her abdominal pain has been getting worse each day and she feels "as if my belly is more swollen". Patient was seen in the emergency room here on and did have an evaluation/workup. At that time they did offer to transfer her to [facility] due to her recent discharge from their facility and the lack of interventional radiology being available until Tuesday patient did leave the hospital AGAINST MEDICAL ADVICE. Patient states she has been able to drink plenty of fluids but has not eaten. She states she has normal bowel movements that are manager lean in color but has them daily. She denies blood in her stool or urine, difficulties with bowel movements or urinating, headache, change in vision, nausea, vomiting, fever, chills, chest pain, shortness of breath, difficulties breathing, she denies all over GI, , respiratory, or cardiovascular symptoms. Patient has past medical history of GI bleed, hepatitis C, pancreatitis, portal hypertension, type 2 diabetes insulin dependent, bipolar disorder and chronic back pain. Review of systems: As per history of present illness and below otherwise all systems reviewed and negative. Past medical history: As per history of present illness and as reviewed below otherwise noncontributory. Surgical history: As per history of present illness and as reviewed below otherwise noncontributory. Social history: See social history for further information Family history: As per history of present illness and as reviewed below otherwise noncontributory. Physical exam: General: Mild and chronically ill appearing 42-year-old female. Alert and oriented. Nontoxic appearing and mildly uncomfortable while resting on the cot. HEENT: Atraumatic, normocephalic, pupils equal and reactive bilaterally, negative for conjunctival pallor but significant scleral icterus, mucous membranes are quite dry, TMs normal bilaterally, throat clear, neck supple, nontender, trachea midline. No drooling or trismus noted. No meningeal signs. No hot potato voice noted. Lungs: Clear to auscultation, breath sounds equal bilaterally, chest nontender. Heart: S1S2, regular rate and rhythm without overt murmur Abdomen: Exam of abdomen limited due to pain. Firm, distended, tenderness to palpation throughout - moreso over the right upper quadrant. Negative for costovertebral tenderness. Negative rebound tenderness. Negative psoas and obturator sign. Pelvis: Stable nontender. Genitourinary: Deferred. Rectal: Deferred. Skin: Evidence of generalized jaundice. Intact, warm, dry. No lesions or rashes noted. Extremities: Atraumatic, moves all per self, negative for cords or calf pain. Neurovascular unremarkable. Neuro: Awake, alert, oriented. Cranial nerves II through XII unremarkable. Cerebellum unremarkable. Motor and sensory unremarkable throughout. Exam nonfocal. Notes: Dr. Ribeiro is directly involved in patient's care. Previous history from patient 's discharge summary from [facility] in [place]. Lab work has been reviewed, she does have a lot of chronic illness with a lot of chronic abnormalities. CT shows: Cirrhotic morphology of the liver with small to moderate amount of ascites, similar in quantity to a study that was done 3 days prior. Signs of portal hypertension including a re-cannulized paraumbilical vein and gastroesophageal varices. Right ovarian cyst measuring 3.5 cm. 1830: Dr. Hayes was consult did on this case. He will come down and evaluate the patient for disposition. 1840: Dr Hayes here to evaluate patient. Diagnostics: CBC, CMP, EKG, chest x-ray, troponin, UA, urine , INR, lipase, ammonia level, EtOH, CT abdomen and pelvis Therapeutics: IV fluid, morphine Impression: Hyponatremia Hyperglycemia Chronic liver failure Increased ammonia level Ascites Plan: Observation admission to Med Surg per Abigail Definitive disposition and diagnosis as appropriate pending reevaluation and review of above. Abdominal Pain Score (Numeric/FACES): 9 - Related Data Allergies Allergy/AdvReac Type Severity Reaction Status Date / Time codeine Allergy Itching Verified 05/15/18 16:04 Home Meds: Home Meds Insulin Aspart [Novolog Flexpen] 10 unit SQ ASDIRECTED 04/22/17 [History] traZODone 25 - 50 mg PO BEDTIME PRN 04/22/17 [History] Insulin Detemir [Levemir] 30 units SQ DAILY 06/13/17 [History] Furosemide 20 mg PO BID 09/09/17 [History] Gabapentin [Neurontin] 100 mg PO TID 09/09/17 [History] Lactulose 10 ml PO Q4H PRN 09/09/17 [History] OXcarbazepine [Oxcarbazepine] 150 mg PO BID 09/09/17 [History] buPROPion HCl [Wellbutrin Xl] 300 mg PO DAILY 09/09/17 [History] Levothyroxine Sodium [Synthroid] 25 mcg PO ACBREAKFAST 10/01/17 [History] Nadolol [Corgard] 20 mg PO DAILY 10/01/17 [History] Pantoprazole [ProTONIX] 40 mg PO ACBREAKFAST 10/01/17 [History] Sucralfate 1 gm PO QIDACANDBED 10/01/17 [History] Spironolactone 50 mg PO DAILY 30 Days #30 tablet 05/17/18 [Rx] traMADol [Ultram] 50 mg PO Q8H PRN 5 Days #15 tablet 05/17/18 [Rx] Past Medical History - Past Health History Medical/Surgical History: Denies Medical/Surgical History HEENT History: Reports: Impaired Vision Cardiovascular History: Reports: None Other Cardiovascular History: Takes diuretics for portal HTN and swelling Respiratory History: Reports: Asthma Gastrointestinal History: Reports: Cholelithiasis, GI Bleed, Hepatitis, Other ( See Below) Other Gastrointestinal History: Gastric Ulcer, pancreatitis? and ileius Genitourinary History: Reports: UTI, Recurrent [employer] History: Reports: Musculoskeletal History: Reports: None Other Musculoskeletal History: Herniated disk, lumbar fracture, fractured right ankle Neurological History: Reports: Concussion, Other (See Below) Other Neuro History: 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 Immunologic History: Reports: None Other Immunologic History: Hep-c Oncologic (Cancer) History: Reports: None Dermatologic History: Reports: Urticaria - Infectious Disease History Infectious Disease History: Reports: Hepatitis C - Past Surgical History Head Surgeries/Procedures: Reports: None HEENT Surgical History: Reports: None Respiratory Surgical History: Reports: None GI Surgical History: Reports: Cholecystectomy, EGD Female Surgical History: Reports: Section, Tubal Ligation Endocrine Surgical History: Reports: None Neurological Surgical History: Reports: Lumbar Spine Musculoskeletal Surgical History: Reports: Other (See Below) Other Musculoskeletal Surgeries/Procedures:: ankle surgery, back surgery Dermatological Surgical History: Reports: None Social & Family History - Family History Family Medical History: Noncontributory - Tobacco Use Smoking Status *Q: Former Smoker Years of Tobacco use: 20 Used Tobacco, but Quit: Yes Month/Year Tobacco Last Used: 2 weeks - Caffeine Use Caffeine Use: Reports: None Other Caffeine Use: occasional coffee, unsweetened tea - Recreational Drug Use Recreational Drug Use: No ED ROS GENERAL - Review of Systems Review Of Systems: ROS reveals no pertinent complaints other than HPI. ED EXAM, GI/ABD - Physical Exam Exam: See Below (See dictation) Course - Vital Signs Last Recorded V/S: Last Vital Signs Temp 97.7 F 05/17/18 12:00 Pulse 82 05/17/18 12:00 Resp 20 05/17/18 12:00 BP 98/61 05/17/18 12:00 Pulse Ox 95 05/17/18 12:00 - Orders/Labs/Meds Orders: Medication Orders Bupropion HCl (Wellbutrin Xl) 300 mg PO DAILY [facility] Last Admin: 05/17/18 08:57 Dose: 300 mg Admin: 05/16/18 08:25 Dose: 300 mg Diphenhydramine HCl (Benadryl) 25 mg PO Q6H PRN PRN Reason: Itching Last Admin: 05/17/18 00:04 Dose: 25 mg Admin: 05/16/18 18:05 Dose: 25 mg Gabapentin (Neurontin) 100 mg PO TID [facility] Last Admin: 05/17/18 06:47 Dose: 100 mg Admin: 05/16/18 21:07 Dose: 100 mg Admin: 05/16/18 13:55 Dose: 100 mg Admin: 05/16/18 06:50 Dose: 100 mg Admin: 05/15/18 22:12 Dose: 100 mg Insulin Aspart (Novolog) 0 unit SUBCUT TIDAC [facility]; Protocol Last Admin: 05/17/18 12:42 Dose: 4 units Admin: 05/17/18 08:56 Dose: 2 units Admin: 05/16/18 17:58 Dose: 2 units Admin: 05/16/18 11:57 Dose: 2 units Admin: 05/16/18 06:53 Dose: 4 units Insulin Detemir (Levemir) 30 unit SUBCUT DAILY [facility] Last Admin: 05/17/18 08:56 Dose: 30 units Admin: 05/16/18 08:27 Dose: 30 units Lactulose (Chronulac) 10 gm PO Q4H PRN PRN Reason: LIVER Last Admin: 05/17/18 08:57 Dose: 10 gm Admin: 05/17/18 04:12 Dose: 10 gm Admin: 05/17/18 00:04 Dose: 10 gm Admin: 05/16/18 18:05 Dose: 10 gm Admin: 05/16/18 13:54 Dose: 10 gm Admin: 05/16/18 08:40 Dose: 10 gm Levothyroxine Sodium (Levothyroxine) 25 mcg PO ACBREAKFAST [facility] Last Admin: 05/17/18 06:47 Dose: 25 mcg Admin: 05/16/18 06:50 Dose: 25 mcg Morphine Sulfate (Morphine) 2 mg IVPUSH Q6H PRN PRN Reason: Pain Last Admin: 05/17/18 09:52 Dose: 2 mg Admin: 05/16/18 21:00 Dose: 2 mg Nadolol (Naldol) 20 mg PO DAILY [facility] Last Admin: 05/17/18 08:53 Dose: 20 mg Admin: 05/16/18 08:26 Dose: 20 mg Ondansetron HCl (Zofran) 4 mg IVPUSH Q4H PRN PRN Reason: Nausea Oxcarbazepine (Trileptal) 150 mg PO BID [facility] Last Admin: 05/17/18 08:55 Dose: 150 mg Admin: 05/16/18 20:40 Dose: 150 mg Admin: 05/16/18 08:26 Dose: 150 mg Pantoprazole Sodium (Protonix Iv) 40 mg IVPUSH Q24H [facility] Last Admin: 05/16/18 18:57 Dose: 40 mg Admin: 05/15/18 19:39 Dose: 40 mg Spironolactone (Aldactone) 50 mg PO DAILY [facility] Last Admin: 05/17/18 08:53 Dose: 50 mg Admin: 05/16/18 08:25 Dose: 50 mg Tramadol HCl (Ultram) 50 mg PO Q8H PRN PRN Reason: Pain Last Admin: 05/17/18 04:12 Dose: 50 mg Labs: Laboratory Tests 05/15/18 05/15/18 05/15/18 Range/Units 16:16 16:16 16:16 WBC 2.77 L (4.0-11.0) K/uL RBC 3.07 L (4.30-5.90) M/uL Hgb 8.4 L (12.0-16.0) g/dL Hct 25.4 L (36.0-46.0) % MCV 82.7 (80.0-98.0) fL MCH 27.4 (27.0-32.0) pg MCHC 33.1 (31.0-37.0) g/dL RDW Std Deviation 61.6 (28.0-62.0) fl RDW Coeff of Jovan 21 H (11.0-15.0) % Plt Count 44 L (150-400) K/uL Neut % (Auto) 45.1 L (48.0-80.0) % Lymph % (Auto) 37.9 (16.0-40.0) % Bowman % (Auto) 11.6 (0.0-15.0) % Eos % (Auto) 4.3 (0.0-7.0) % Baso % (Auto) 1.1 (0.0-1.5) % Neut # (Auto) 1.3 L (1.4-5.7) K/uL Lymph # (Auto) 1.1 (0.6-2.4) K/uL Bowman # (Auto) 0.3 (0.0-0.8) K/uL Eos # (Auto) 0.1 (0.0-0.7) K/uL Baso # (Auto) 0.0 (0.0-0.1) K/uL Nucleated RBC % 0.0 /100WBC Nucleated RBCs # 0 K/uL INR Sodium 129 L (136-145) mmol/L Potassium 4.0 (3.5-5.1) mmol/L Chloride 100 (98-107) mmol/L Carbon Dioxide 25.5 (21.0-32.0) mmol/L BUN 9 (7.0-18.0) mg/dL Creatinine 0.8 (0.6-1.0) mg/dL Est Cr Clr Drug Dosing 89.99 mL/min Estimated GFR (MDRD) > 60.0 ml/min Glucose 368 H (74-106) mg/dL Calcium 7.3 L (8.5-10.1) mg/dL Total Bilirubin 2.2 H (0.2-1.0) mg/dL AST 97 H (15-37) IU/L ALT 61 (14-63) IU/L Alkaline Phosphatase 234 H (46-116) U/L Ammonia 62 H (19-54) ug/dL Troponin I < 0.050 (0.000-0.056) ng/mL Total Protein 5.6 L (6.4-8.2) g/dL Albumin 1.7 L (3.4-5.0) g/dL Globulin 3.9 (2.6-4.0) g/dL Albumin/Globulin Ratio 0.4 L (0.9-1.6) Lipase 139 (73-393) U/L Urine Color Urine Appearance Urine pH (5.0-8.0) Ur Specific Bruni (1.001-1.035) Urine Protein (NEGATIVE) mg/dL Urine Glucose (UA) (NEGATIVE) mg/dL Urine Ketones (NEGATIVE) mg/dL Urine Occult Blood (NEGATIVE) Urine Nitrite (NEGATIVE) Urine Bilirubin (NEGATIVE) Urine Urobilinogen (<2.0) EU/dL Ur Leukocyte Esterase (NEGATIVE) Urine HCG, Qual (NEGATIVE) Ethyl Alcohol <3 mg/dL 05/15/18 05/15/18 05/15/18 Range/Units 16:16 16:25 16:25 WBC (4.0-11.0) K/uL RBC (4.30-5.90) M/uL Hgb (12.0-16.0) g/dL Hct (36.0-46.0) % MCV (80.0-98.0) fL MCH (27.0-32.0) pg MCHC (31.0-37.0) g/dL RDW Std Deviation (28.0-62.0) fl RDW Coeff of Jovan (11.0-15.0) % Plt Count (150-400) K/uL Neut % (Auto) (48.0-80.0) % Lymph % (Auto) (16.0-40.0) % Bowman % (Auto) (0.0-15.0) % Eos % (Auto) (0.0-7.0) % Baso % (Auto) (0.0-1.5) % Neut # (Auto) (1.4-5.7) K/uL Lymph # (Auto) (0.6-2.4) K/uL Bowman # (Auto) (0.0-0.8) K/uL Eos # (Auto) (0.0-0.7) K/uL Baso # (Auto) (0.0-0.1) K/uL Nucleated RBC % /100WBC Nucleated RBCs # K/uL INR 1.46 Sodium (136-145) mmol/L Potassium (3.5-5.1) mmol/L Chloride (98-107) mmol/L Carbon Dioxide (21.0-32.0) mmol/L BUN (7.0-18.0) mg/dL Creatinine (0.6-1.0) mg/dL Est Cr Clr Drug Dosing mL/min Estimated GFR (MDRD) ml/min Glucose (74-106) mg/dL Calcium (8.5-10.1) mg/dL Total Bilirubin (0.2-1.0) mg/dL AST (15-37) IU/L ALT (14-63) IU/L Alkaline Phosphatase (46-116) U/L Ammonia (19-54) ug/dL Troponin I (0.000-0.056) ng/mL Total Protein (6.4-8.2) g/dL Albumin (3.4-5.0) g/dL Globulin (2.6-4.0) g/dL Albumin/Globulin Ratio (0.9-1.6) Lipase (73-393) U/L Urine Color YELLOW Urine Appearance CLEAR Urine pH 7.0 (5.0-8.0) Ur Specific Bruni 1.010 (1.001-1.035) Urine Protein NEGATIVE (NEGATIVE) mg/dL Urine Glucose (UA) >=1000 (NEGATIVE) mg/dL Urine Ketones NEGATIVE (NEGATIVE) mg/dL Urine Occult Blood NEGATIVE (NEGATIVE) Urine Nitrite NEGATIVE (NEGATIVE) Urine Bilirubin NEGATIVE (NEGATIVE) Urine Urobilinogen 1.0 (<2.0) EU/dL Ur Leukocyte Esterase NEGATIVE (NEGATIVE) Urine HCG, Qual NEGATIVE (NEGATIVE) Ethyl Alcohol mg/dL Meds: Medications Generic Name Dose Route Start Last Admin Trade Name Freq PRN Reason Stop Dose Admin Bupropion HCl 300 mg 05/16/18 09:00 05/17/18 08:57 Wellbutrin Xl PO 300 mg DAILY [facility]YCE Administration Diphenhydramine HCl 25 mg 05/16/18 16:49 05/17/18 00:04 Benadryl PO 25 mg Q6H PRN Administration Itching Gabapentin 100 mg 05/15/18 22:00 05/17/18 06:47 Neurontin PO 100 mg TID JOYCE Administration Insulin Aspart 0 unit 05/16/18 07:30 05/17/18 12:42 Novolog SUBCUT 4 units TIDAC [facility] Administration Protocol Insulin Detemir 30 unit 05/16/18 09:00 05/17/18 08:56 Levemir SUBCUT 30 units DAILY [facility] Administration Lactulose 10 gm 05/16/18 07:33 05/17/18 08:57 Chronulac PO 10 gm Q4H PRN Administration LIVER Levothyroxine Sodium 25 mcg 05/16/18 07:30 05/17/18 06:47 Levothyroxine PO 25 mcg ACBREAKFAST JOYCE Administration Morphine Sulfate 2 mg 05/16/18 20:50 05/17/18 09:52 Morphine IVPUSH 2 mg Q6H PRN Administration Pain Nadolol 20 mg 05/16/18 09:00 05/17/18 08:53 Naldol PO 20 mg DAILY [facility]YCE Administration Ondansetron HCl 4 mg 05/15/18 19:08 Zofran IVPUSH Q4H PRN Nausea Oxcarbazepine 150 mg 05/16/18 07:16 05/17/18 08:55 Trileptal PO 150 mg BID [facility]YCE Administration Pantoprazole Sodium 40 mg 05/15/18 19:30 05/16/18 18:57 Protonix Iv IVPUSH 40 mg Q24H [facility] Administration Spironolactone 50 mg 05/16/18 09:00 05/17/18 08:53 Aldactone PO 50 mg DAILY [facility] Administration Tramadol HCl 50 mg 05/16/18 20:51 05/17/18 04:12 Ultram PO 50 mg Q8H PRN Administration Pain Discontinued Medications Generic Name Dose Route Start Last Admin Trade Name Freq PRN Reason Stop Dose Admin Furosemide 40 mg 05/15/18 19:14 05/15/18 19:39 Lasix IVPUSH 05/15/18 19:15 40 mg NOW ONE Administration Furosemide 40 mg 05/16/18 11:41 05/16/18 11:52 Lasix IVPUSH 05/16/18 11:42 40 mg NOW ONE Administration Sodium Chloride 1,000 mls @ 125 mls/hr 05/15/18 16:15 05/15/18 16:30 Normal Saline IV 125 mls/hr STAT JOYCE Administration Iopamidol 100 ml 05/15/18 17:38 05/15/18 17:39 Isovue Multipack-370 (76%) IVPUSH 05/15/18 17:39 100 ml ONETIME STA Administration Morphine Sulfate 2 mg 05/15/18 16:12 05/15/18 16:30 Morphine IVPUSH 05/15/18 16:13 2 mg ONETIME ONE Administration Morphine Sulfate 2 mg 05/15/18 19:08 05/16/18 06:56 Morphine IVPUSH 05/16/18 19:09 2 mg Q4H PRN Administration Pain (severe 7-10) Morphine Sulfate 2 mg 05/16/18 07:45 05/16/18 16:15 Morphine IVPUSH 05/16/18 19:09 2 mg Q4H PRN Administration Pain (severe 7-10) Non-Formulary Medication 10 ml 05/15/18 19:10 Lactulose [Lactulose] PO Q4H PRN LIVER Non-Formulary Medication 150 mg 05/15/18 21:00 05/15/18 22:13 Oxcarbazepine PO Not Given BID [facility] Pantoprazole Sodium 40 mg 05/16/18 07:30 Protonix PO ACBREAKFAST JOY[facility] Sterile Water 10 ml 05/15/18 19:34 05/15/18 19:40 Sterile Water For Injection INJECT 05/15/18 19:35 10 ml NOW STA Administration Departure - Departure Time of Disposition: 19:00 Disposition: Refer to Observation Clinical Impression: Hyponatremia, Hyperglycemia, Increased ammonia level Chronic liver failure Qualifiers: Hepatic coma status: without hepatic coma Qualified Code(s): K72.10 - Chronic hepatic failure without coma Ascites Qualifiers: Ascites type: due to alcoholic cirrhosis Qualified Code(s): K70.31 - Alcoholic cirrhosis of liver with ascites - Discharge Information
[2018-05-15 16:55] LABS: CHLORIDE,CL 100 mmol/L (98-107); SODIUM,NA 129 mmol/L (136-145)
[2018-05-15] MEDS ORDERED: Iopamidol 755 MG/ML 500 ML Multipack Bottle IVPUSH STA (17:38)
--- NOTE | 2018-05-15 18:22 | CT ---
INDICATION: Abdominal distention and pain. TECHNIQUE: CT abdomen and pelvis acquired with 100 cc Isovue 370 intravenous contrast. COMPARISON: Abdomen and pelvis CT 05/12/2018 FINDINGS: Lower chest: Basilar discoid atelectasis with trace right pleural fluid. Liver: There is a nodular contour of the liver without focal lesion. Portal vein is patent. Note is made of a recanalized paraumbilical vein. Gallbladder and bile ducts: Status post cholecystectomy. Pancreas: Unremarkable. No mass or inflammation. Spleen: Unremarkable. Normal in size. No masses. Adrenal glands: Unremarkable. No nodules. Kidneys: Symmetric renal enhancement without hydronephrosis. Subcentimeter hypodensities in the kidneys which are too small for characterization although visually likely represent cysts and are similar to the prior exam. GI tract: There is a small to moderate amount of ascites which is similar in quantity compared to the prior study. Note is again made of some varices consistent with portal hypertension including gastric and gastroesophageal varices. Stomach is decompressed. There are no dilated loops of large or small intestine. Vasculature: Varices consistent with portal hypertension as above. No evidence of abdominal aortic aneurysm. Lymph nodes: No lymphadenopathy. Pelvis: Right ovarian cyst redemonstrated measuring 3.5 centimeters. Bones: Degenerative disc disease lumbar spine. IMPRESSION: 1. Cirrhotic morphology of the liver with small to moderate amount of ascites, similar in quantity to the study of 3 days prior. 2. Signs of portal hypertension including a recanalized paraumbilical vein and gastroesophageal varices. 3. Right ovarian cyst measuring 3.5 centimeters. Please note that all CT scans at this facility use dose modulation, iterative reconstruction, and/or weight-based dosing when appropriate to reduce radiation dose to as low as reasonably achievable. Dictated by Mirza Kelly MD @ May 15 2018 6:09PM Signed by Dr. Mirza Kelly @ May 15 2018 6:22PM
[2018-05-15] MEDS ORDERED: Ondansetron 4 MG/2 ML SDV IVPUSH PRN (19:08)
[2018-05-15] MEDS ORDERED: LACTULOSE PO PRN (19:10)
[2018-05-15] MEDS ORDERED: Furosemide 40 MG/4 ML VIAL IVPUSH ONE (19:14)
--- NOTE | 2018-05-15 19:22 | PCM.HP ---
H&P History of Present Illness - General Date of Service: 05/15/18 Admit Problem/Dx: Admission Diagnosis/Problem Admission Diagnosis/Problem Abdominal pain - History of Present Illness Initial Comments - Free Text/Narative: 42 yo female with pmh of Hep C, liver cirrhosis with gastric varesis. Patient reports recent admission to [facility] for GI bleed. She had upper and lower endoscopy and patient reports to me she had a lower GI bleed. Since discharge last Tuesday she has not notice any blood in her stool. This weekend she has had increasing abdominal bloating and pain. She reports taking her lactulose and having regular bowel movements. She reports her leg edema has been stable. She denies any fevers. CT scan performed in the ED showed small to moderate amount of ascites. Abdominal Pain Score (Numeric/FACES): 9 - Related Data Allergies/Adverse Reactions: Allergies Allergy/AdvReac Type Severity Reaction Status Date / Time codeine Allergy Itching Verified 05/15/18 16:04 Home Medications: Home Meds Insulin Aspart [Novolog Flexpen] 10 unit SQ ASDIRECTED 04/22/17 [History] traZODone 25 - 50 mg PO BEDTIME PRN 04/22/17 [History] Insulin Detemir [Levemir] 30 units SQ DAILY 06/13/17 [History] Furosemide 20 mg PO BID 09/09/17 [History] Gabapentin [Neurontin] 100 mg PO TID 09/09/17 [History] Lactulose 10 ml PO Q4H PRN 09/09/17 [History] OXcarbazepine [Oxcarbazepine] 150 mg PO BID 09/09/17 [History] buPROPion HCl [Wellbutrin Xl] 300 mg PO DAILY 09/09/17 [History] Levothyroxine Sodium [Synthroid] 25 mcg PO ACBREAKFAST 10/01/17 [History] Nadolol [Corgard] 20 mg PO DAILY 10/01/17 [History] Pantoprazole [ProTONIX] 40 mg PO ACBREAKFAST 10/01/17 [History] Sucralfate 1 gm PO QIDACANDBED 10/01/17 [History] Spironolactone 50 mg PO DAILY 30 Days #30 tablet 05/17/18 [Rx] traMADol [Ultram] 50 mg PO Q8H PRN 5 Days #15 tablet 05/17/18 [Rx] Past Medical History - Past Health History Medical/Surgical History: Denies Medical/Surgical History HEENT History: Reports: Impaired Vision Cardiovascular History: Reports: None Other Cardiovascular History: Takes diuretics for portal HTN and swelling Respiratory History: Reports: Asthma Gastrointestinal History: Reports: Cholelithiasis, GI Bleed, Hepatitis, Other ( See Below) Other Gastrointestinal History: Gastric Ulcer, pancreatitis? and ileius Genitourinary History: Reports: UTI, Recurrent [employer] History: Reports: Musculoskeletal History: Reports: None Other Musculoskeletal History: Herniated disk, lumbar fracture, fractured right ankle Neurological History: Reports: Concussion, Other (See Below) Other Neuro History: 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 Immunologic History: Reports: None Other Immunologic History: Hep-c Oncologic (Cancer) History: Reports: None Dermatologic History: Reports: Urticaria - Infectious Disease History Infectious Disease History: Reports: Hepatitis C - Past Surgical History Head Surgeries/Procedures: Reports: None HEENT Surgical History: Reports: None Respiratory Surgical History: Reports: None GI Surgical History: Reports: Cholecystectomy, EGD Female Surgical History: Reports: Section, Tubal Ligation Endocrine Surgical History: Reports: None Neurological Surgical History: Reports: Lumbar Spine Musculoskeletal Surgical History: Reports: Other (See Below) Other Musculoskeletal Surgeries/Procedures:: ankle surgery, back surgery Dermatological Surgical History: Reports: None Social & Family History - Family History Family Medical History: Noncontributory - Tobacco Use Smoking Status *Q: Former Smoker Years of Tobacco use: 20 Used Tobacco, but Quit: Yes Month/Year Tobacco Last Used: 2 weeks - Caffeine Use Caffeine Use: Reports: None Other Caffeine Use: occasional coffee, unsweetened tea - Recreational Drug Use Recreational Drug Use: No H&P Review of Systems - Review of Systems: Review Of Systems: ROS reveals no pertinent complaints other than HPI. Exam - Exam Exam: See Below - Vital Signs Vital Signs: Last Vital Signs Temp 36.9 C 05/15/18 19:10 Pulse 82 05/15/18 19:10 Resp 13 05/15/18 19:10 BP 123/68 05/15/18 19:10 Pulse Ox 98 05/15/18 19:10 Weight: 86.183 kg - Exam General: Alert, Oriented HEENT: Mucosa Moist & [place] Lungs: Clear to Auscultation, Normal Respiratory Effort Cardiovascular: Regular Rate, Regular Rhythm GI/Abdominal Exam: Normal Bowel Sounds, Soft, Non-Tender, Distended. No: Guarding, Rigid, Rebound, Tender Extremities: Pedal Edema (+1) Skin: Warm, Dry, Intact - Patient Data Lab Results Last 24 hrs: Laboratory Results - last 24 hr 05/15/18 05/15/18 05/15/18 Range/Units 16:16 16:16 16:16 WBC 2.77 L (4.0-11.0) K/uL RBC 3.07 L (4.30-5.90) M/uL Hgb 8.4 L (12.0-16.0) g/dL Hct 25.4 L (36.0-46.0) % MCV 82.7 (80.0-98.0) fL MCH 27.4 (27.0-32.0) pg MCHC 33.1 (31.0-37.0) g/dL RDW Std Deviation 61.6 (28.0-62.0) fl RDW Coeff of Jovan 21 H (11.0-15.0) % Plt Count 44 L (150-400) K/uL Neut % (Auto) 45.1 L (48.0-80.0) % Lymph % (Auto) 37.9 (16.0-40.0) % [place] % (Auto) 11.6 (0.0-15.0) % Eos % (Auto) 4.3 (0.0-7.0) % Baso % (Auto) 1.1 (0.0-1.5) % Neut # (Auto) 1.3 L (1.4-5.7) K/uL Lymph # (Auto) 1.1 (0.6-2.4) K/uL [place] # (Auto) 0.3 (0.0-0.8) K/uL Eos # (Auto) 0.1 (0.0-0.7) K/uL Baso # (Auto) 0.0 (0.0-0.1) K/uL Nucleated RBC % 0.0 /100WBC Nucleated RBCs # 0 K/uL INR Sodium 129 L (136-145) mmol/L Potassium 4.0 (3.5-5.1) mmol/L Chloride 100 (98-107) mmol/L Carbon Dioxide 25.5 (21.0-32.0) mmol/L BUN 9 (7.0-18.0) mg/dL Creatinine 0.8 (0.6-1.0) mg/dL Est Cr Clr Drug Dosing 89.99 mL/min Estimated GFR (MDRD) > 60.0 ml/min Glucose 368 H (74-106) mg/dL Calcium 7.3 L (8.5-10.1) mg/dL Total Bilirubin 2.2 H (0.2-1.0) mg/dL AST 97 H (15-37) IU/L ALT 61 (14-63) IU/L Alkaline Phosphatase 234 H (46-116) U/L Ammonia 62 H (19-54) ug/dL Troponin I < 0.050 (0.000-0.056) ng/mL Total Protein 5.6 L (6.4-8.2) g/dL Albumin 1.7 L (3.4-5.0) g/dL Globulin 3.9 (2.6-4.0) g/dL Albumin/Globulin Ratio 0.4 L (0.9-1.6) Lipase 139 (73-393) U/L Urine Color Urine Appearance Urine pH (5.0-8.0) Ur Specific [place] (1.001-1.035) Urine Protein (NEGATIVE) mg/dL Urine Glucose (UA) (NEGATIVE) mg/dL Urine Ketones (NEGATIVE) mg/dL Urine Occult Blood (NEGATIVE) Urine Nitrite (NEGATIVE) Urine Bilirubin (NEGATIVE) Urine Urobilinogen (<2.0) EU/dL Ur Leukocyte Esterase (NEGATIVE) Urine HCG, Qual (NEGATIVE) Ethyl Alcohol <3 mg/dL 05/15/18 05/15/18 05/15/18 Range/Units 16:16 16:25 16:25 WBC (4.0-11.0) K/uL RBC (4.30-5.90) M/uL Hgb (12.0-16.0) g/dL Hct (36.0-46.0) % MCV (80.0-98.0) fL MCH (27.0-32.0) pg MCHC (31.0-37.0) g/dL RDW Std Deviation (28.0-62.0) fl RDW Coeff of Jovan (11.0-15.0) % Plt Count (150-400) K/uL Neut % (Auto) (48.0-80.0) % Lymph % (Auto) (16.0-40.0) % [place] % (Auto) (0.0-15.0) % Eos % (Auto) (0.0-7.0) % Baso % (Auto) (0.0-1.5) % Neut # (Auto) (1.4-5.7) K/uL Lymph # (Auto) (0.6-2.4) K/uL [place] # (Auto) (0.0-0.8) K/uL Eos # (Auto) (0.0-0.7) K/uL Baso # (Auto) (0.0-0.1) K/uL Nucleated RBC % /100WBC Nucleated RBCs # K/uL INR 1.46 Sodium (136-145) mmol/L Potassium (3.5-5.1) mmol/L Chloride (98-107) mmol/L Carbon Dioxide (21.0-32.0) mmol/L BUN (7.0-18.0) mg/dL Creatinine (0.6-1.0) mg/dL Est Cr Clr Drug Dosing mL/min Estimated GFR (MDRD) ml/min Glucose (74-106) mg/dL Calcium (8.5-10.1) mg/dL Total Bilirubin (0.2-1.0) mg/dL AST (15-37) IU/L ALT (14-63) IU/L Alkaline Phosphatase (46-116) U/L Ammonia (19-54) ug/dL Troponin I (0.000-0.056) ng/mL Total Protein (6.4-8.2) g/dL Albumin (3.4-5.0) g/dL Globulin (2.6-4.0) g/dL Albumin/Globulin Ratio (0.9-1.6) Lipase (73-393) U/L Urine Color YELLOW Urine Appearance CLEAR Urine pH 7.0 (5.0-8.0) Ur Specific [place] 1.010 (1.001-1.035) Urine Protein NEGATIVE (NEGATIVE) mg/dL Urine Glucose (UA) >=1000 (NEGATIVE) mg/dL Urine Ketones NEGATIVE (NEGATIVE) mg/dL Urine Occult Blood NEGATIVE (NEGATIVE) Urine Nitrite NEGATIVE (NEGATIVE) Urine Bilirubin NEGATIVE (NEGATIVE) Urine Urobilinogen 1.0 (<2.0) EU/dL Ur Leukocyte Esterase NEGATIVE (NEGATIVE) Urine HCG, Qual NEGATIVE (NEGATIVE) Ethyl Alcohol mg/dL Result Diagrams: 05/17/18 05:10 05/17/18 05:10 Problem List Initiated/Reviewed/Updated: Yes Orders Last 24hrs: Active Orders 24 hr Category Date Time Status Admission Status [Patient Status] [ADT] Stat ADT 05/15/18 18:57 Active Antiembolic Devices [RC] PER UNIT ROUTINE Care 05/15/18 19:10 Ordered EKG Documentation Completion [RC] STAT Care 05/15/18 16:15 Active Oxygen Therapy [RC] PRN Care 05/15/18 19:08 Ordered Up ad Kasey [RC] ASDIRECTED Care 05/15/18 19:08 Ordered VTE/DVT Education [RC] PER UNIT ROUTINE Care 05/15/18 19:08 Ordered Vital Signs [RC] Q4H Care 05/15/18 19:08 Ordered [employer] Diet [DIET] Diet 05/16/18 Breakfast Ordered Regular Diet [DIET] Diet 05/15/18 Breakfast Active ABO/RH TYPE [BBK] Routine Lab 05/15/18 19:16 Ordered CBC WITH AUTO DIFF [HEME] AM Lab 05/16/18 05:11 Ordered COMPREHENSIVE METABOLIC PN,CMP [CHEM] AM Lab 05/16/18 05:11 Ordered PLATELETS APH [BBK] Routine Lab 05/15/18 19:16 Ordered Gabapentin [Neurontin] Med 05/15/18 22:00 Ordered 100 mg PO TID Insulin Aspart [NovoLOG] Med 05/16/18 07:30 Ordered See Protocol SUBCUT TIDAC Insulin Detemir [Levemir] Med 05/16/18 09:00 Ordered 30 unit SUBCUT DAILY Lactulose [Lactulose] Med 05/15/18 19:10 Ordered 10 ml PO Q4H PRN Levothyroxine Med 05/16/18 07:30 Ordered 25 mcg PO ACBREAKFAST Morphine Med 05/15/18 19:08 Ordered 2 mg IVPUSH Q4H PRN Nadolol [Corgard] Med 05/16/18 09:00 Ordered 20 mg PO DAILY OXcarbazepine Med 05/15/18 21:00 Ordered 150 mg PO BID Ondansetron [Zofran] Med 05/15/18 19:08 Ordered 4 mg IVPUSH Q4H PRN Pantoprazole [ProTONIX] Med 05/16/18 07:30 Ordered 40 mg PO ACBREAKFAST Spironolactone [Spironolactone] Med 05/16/18 09:00 Ordered 50 mg PO DAILY buPROPion [Wellbutrin XL] Med 05/16/18 09:00 Ordered 300 mg PO DAILY Sequential Compression Device [OM.PC] Per Unit Routine Oth 05/15/18 19:09 Ordered Resuscitation Status Routine Resus Stat 05/15/18 19:08 Ordered Medication Orders Bupropion HCl (Wellbutrin Xl) 300 mg PO DAILY JOYCE Gabapentin (Neurontin) 100 mg PO TID JOYCE Insulin Aspart (Novolog) 0 unit SUBCUT TIDAC JOYCE; Protocol Insulin Detemir (Levemir) 30 unit SUBCUT DAILY JOYCE Levothyroxine Sodium (Levothyroxine) 25 mcg PO ACBREAKFAST JOYCE Morphine Sulfate (Morphine) 2 mg IVPUSH Q4H PRN PRN Reason: Pain (severe 7-10) Stop: 05/16/18 19:09 Non-Formulary Medication (Lactulose [Lactulose]) 10 ml PO Q4H PRN PRN Reason: LIVER Non-Formulary Medication (Nadolol [Corgard]) 20 mg PO DAILY [facility] Non-Formulary Medication (Oxcarbazepine) 150 mg PO BID JOYCE Non-Formulary Medication (Spironolactone [Spironolactone]) 50 mg PO DAILY [facility] Ondansetron HCl (Zofran) 4 mg IVPUSH Q4H PRN PRN Reason: Nausea Pantoprazole Sodium (Protonix) 40 mg PO ACBREAKFAST JOYCE Assessment/Plan Comment:: 42 yo female admitted for abdominal pain likely from ascites. We will give IV lasix tonight. We will consult radiology tomorrow morning regarding paracentesis. Platelets have been ordered incase transfusion is requested.
[2018-05-15] MEDS ORDERED: Water For Injection, Sterile 20 ML SDV INJECT STA (19:34)
[2018-05-15] MEDS: Pantoprazole 40 MG Vial IVPUSH SCH (19:39)
[2018-05-15] MEDS ORDERED: OXCARBAZEPINE 150 MG PO SCH (21:00)
[2018-05-15] MEDS: Morphine 10 MG/ML Syringe IVPUSH PRN (22:11)
[2018-05-15] MEDS: Gabapentin 100 MG Cap PO SCH (22:12)
[2018-05-16] MEDS: Morphine 10 MG/ML Syringe IVPUSH PRN ×2 (02:17→06:56)
[2018-05-16 05:53] LABS: CHLORIDE,CL 103 mmol/L (98-107); SODIUM,NA 133 mmol/L (136-145)
[2018-05-16] MEDS: Gabapentin 100 MG Cap PO SCH ×3 (06:50→21:07)
[2018-05-16] MEDS: Levothyroxine 25 MCG Tab PO SCH (06:50)
[2018-05-16] MEDS: Insulin Aspart 100 Units/ML 3 ML Pen SUBCUT SCH ×3 (06:53→17:58)
[2018-05-16] MEDS ORDERED: Pantoprazole 40 MG Tab.CR PO SCH (07:30)
--- NOTE | 2018-05-16 08:16 | PCM.PN ---
- General Info Date of Service: 05/16/18 Admission Dx/Problem (Free Text): Admission Diagnosis/Problem Admission Diagnosis/Problem Abdominal pain Subjective Update: Reports feeling slightly improved. Still feels bloated with some shortness of breath. No chest pain. No abdominal pain. Functional Status: Reports: Pain Controlled, Tolerating Diet, Ambulating, Urinating - Review of Systems General: Reports: No Symptoms. Denies: Weakness, Fatigue HEENT: Reports: No Symptoms Pulmonary: Denies: Shortness of Breath, Cough, Sputum Cardiovascular: Reports: Dyspnea on Exertion, Edema (stable.) Gastrointestinal: Reports: Other (bloated.). Denies: Abdominal Pain, Nausea, Vomiting Genitourinary: Reports: No Symptoms. Denies: Dysuria, Frequency, Burning, Pain Musculoskeletal: Reports: No Symptoms Skin: Reports: No Symptoms Neurological: Reports: No Symptoms Psychiatric: Reports: No Symptoms - Patient Data Vitals - Most Recent: Last Vital Signs Temp 97.7 F 05/16/18 07:00 Pulse 79 05/16/18 07:00 Resp 16 05/16/18 07:00 BP 91/63 05/16/18 07:00 Pulse Ox 96 05/16/18 07:00 Weight - Most Recent: 94.755 kg I&O - Last 24 Hours: Intake & Output 05/15/18 05/16/18 05/16/18 22:59 06:59 14:59 Intake Total 120 Output Total 1600 Balance -1480 Lab Results Last 24 Hours: Laboratory Results - last 24 hr 05/15/18 05/15/18 05/15/18 Range/Units 16:16 16:16 16:16 WBC 2.77 L (4.0-11.0) K/uL RBC 3.07 L (4.30-5.90) M/uL Hgb 8.4 L (12.0-16.0) g/dL Hct 25.4 L (36.0-46.0) % MCV 82.7 (80.0-98.0) fL MCH 27.4 (27.0-32.0) pg MCHC 33.1 (31.0-37.0) g/dL RDW Std Deviation 61.6 (28.0-62.0) fl RDW Coeff of Jovan 21 H (11.0-15.0) % Plt Count 44 L (150-400) K/uL Neut % (Auto) 45.1 L (48.0-80.0) % Lymph % (Auto) 37.9 (16.0-40.0) % [place] % (Auto) 11.6 (0.0-15.0) % Eos % (Auto) 4.3 (0.0-7.0) % Baso % (Auto) 1.1 (0.0-1.5) % Neut # (Auto) 1.3 L (1.4-5.7) K/uL Lymph # (Auto) 1.1 (0.6-2.4) K/uL [place] # (Auto) 0.3 (0.0-0.8) K/uL Eos # (Auto) 0.1 (0.0-0.7) K/uL Baso # (Auto) 0.0 (0.0-0.1) K/uL Nucleated RBC % 0.0 /100WBC Nucleated RBCs # 0 K/uL INR Sodium 129 L (136-145) mmol/L Potassium 4.0 (3.5-5.1) mmol/L Chloride 100 (98-107) mmol/L Carbon Dioxide 25.5 (21.0-32.0) mmol/L BUN 9 (7.0-18.0) mg/dL Creatinine 0.8 (0.6-1.0) mg/dL Est Cr Clr Drug Dosing 89.99 mL/min Estimated GFR (MDRD) > 60.0 ml/min Glucose 368 H (74-106) mg/dL POC Glucose (60-110) mg/dL Calcium 7.3 L (8.5-10.1) mg/dL Total Bilirubin 2.2 H (0.2-1.0) mg/dL AST 97 H (15-37) IU/L ALT 61 (14-63) IU/L Alkaline Phosphatase 234 H (46-116) U/L Ammonia 62 H (19-54) ug/dL Troponin I < 0.050 (0.000-0.056) ng/mL Total Protein 5.6 L (6.4-8.2) g/dL Albumin 1.7 L (3.4-5.0) g/dL Globulin 3.9 (2.6-4.0) g/dL Albumin/Globulin Ratio 0.4 L (0.9-1.6) Lipase 139 (73-393) U/L Urine Color Urine Appearance Urine pH (5.0-8.0) Ur Specific [place] (1.001-1.035) Urine Protein (NEGATIVE) mg/dL Urine Glucose (UA) (NEGATIVE) mg/dL Urine Ketones (NEGATIVE) mg/dL Urine Occult Blood (NEGATIVE) Urine Nitrite (NEGATIVE) Urine Bilirubin (NEGATIVE) Urine Urobilinogen (<2.0) EU/dL Ur Leukocyte Esterase (NEGATIVE) Urine HCG, Qual (NEGATIVE) Ethyl Alcohol <3 mg/dL 05/15/18 05/15/18 05/15/18 Range/Units 16:16 16:25 16:25 WBC (4.0-11.0) K/uL RBC (4.30-5.90) M/uL Hgb (12.0-16.0) g/dL Hct (36.0-46.0) % MCV (80.0-98.0) fL MCH (27.0-32.0) pg MCHC (31.0-37.0) g/dL RDW Std Deviation (28.0-62.0) fl RDW Coeff of Jovan (11.0-15.0) % Plt Count (150-400) K/uL Neut % (Auto) (48.0-80.0) % Lymph % (Auto) (16.0-40.0) % [place] % (Auto) (0.0-15.0) % Eos % (Auto) (0.0-7.0) % Baso % (Auto) (0.0-1.5) % Neut # (Auto) (1.4-5.7) K/uL Lymph # (Auto) (0.6-2.4) K/uL [place] # (Auto) (0.0-0.8) K/uL Eos # (Auto) (0.0-0.7) K/uL Baso # (Auto) (0.0-0.1) K/uL Nucleated RBC % /100WBC Nucleated RBCs # K/uL INR 1.46 Sodium (136-145) mmol/L Potassium (3.5-5.1) mmol/L Chloride (98-107) mmol/L Carbon Dioxide (21.0-32.0) mmol/L BUN (7.0-18.0) mg/dL Creatinine (0.6-1.0) mg/dL Est Cr Clr Drug Dosing mL/min Estimated GFR (MDRD) ml/min Glucose (74-106) mg/dL POC Glucose (60-110) mg/dL Calcium (8.5-10.1) mg/dL Total Bilirubin (0.2-1.0) mg/dL AST (15-37) IU/L ALT (14-63) IU/L Alkaline Phosphatase (46-116) U/L Ammonia (19-54) ug/dL Troponin I (0.000-0.056) ng/mL Total Protein (6.4-8.2) g/dL Albumin (3.4-5.0) g/dL Globulin (2.6-4.0) g/dL Albumin/Globulin Ratio (0.9-1.6) Lipase (73-393) U/L Urine Color YELLOW Urine Appearance CLEAR Urine pH 7.0 (5.0-8.0) Ur Specific [place] 1.010 (1.001-1.035) Urine Protein NEGATIVE (NEGATIVE) mg/dL Urine Glucose (UA) >=1000 (NEGATIVE) mg/dL Urine Ketones NEGATIVE (NEGATIVE) mg/dL Urine Occult Blood NEGATIVE (NEGATIVE) Urine Nitrite NEGATIVE (NEGATIVE) Urine Bilirubin NEGATIVE (NEGATIVE) Urine Urobilinogen 1.0 (<2.0) EU/dL Ur Leukocyte Esterase NEGATIVE (NEGATIVE) Urine HCG, Qual NEGATIVE (NEGATIVE) Ethyl Alcohol mg/dL 05/16/18 05/16/18 05/16/18 Range/Units 05:10 05:10 06:52 WBC 3.51 L (4.0-11.0) K/uL RBC 2.77 L (4.30-5.90) M/uL Hgb 7.4 L (12.0-16.0) g/dL Hct 22.9 L (36.0-46.0) % MCV 82.7 (80.0-98.0) fL MCH 26.7 L (27.0-32.0) pg MCHC 32.3 (31.0-37.0) g/dL RDW Std Deviation 62.3 H (28.0-62.0) fl RDW Coeff of Jovan 21 H (11.0-15.0) % Plt Count 42 L (150-400) K/uL Neut % (Auto) 39.3 L (48.0-80.0) % Lymph % (Auto) 44.4 H (16.0-40.0) % [place] % (Auto) 11.1 (0.0-15.0) % Eos % (Auto) 4.3 (0.0-7.0) % Baso % (Auto) 0.9 (0.0-1.5) % Neut # (Auto) 1.4 (1.4-5.7) K/uL Lymph # (Auto) 1.6 (0.6-2.4) K/uL [place] # (Auto) 0.4 (0.0-0.8) K/uL Eos # (Auto) 0.2 (0.0-0.7) K/uL Baso # (Auto) 0.0 (0.0-0.1) K/uL Nucleated RBC % 0.0 /100WBC Nucleated RBCs # 0 K/uL INR Sodium 133 L (136-145) mmol/L Potassium 3.7 (3.5-5.1) mmol/L Chloride 103 (98-107) mmol/L Carbon Dioxide 27.3 (21.0-32.0) mmol/L BUN 9 (7.0-18.0) mg/dL Creatinine 0.9 (0.6-1.0) mg/dL Est Cr Clr Drug Dosing 79.99 mL/min Estimated GFR (MDRD) > 60.0 ml/min Glucose 227 H (74-106) mg/dL POC Glucose 222 H (60-110) mg/dL Calcium 7.1 L (8.5-10.1) mg/dL Total Bilirubin 2.0 H (0.2-1.0) mg/dL AST 93 H (15-37) IU/L ALT 57 (14-63) IU/L Alkaline Phosphatase 197 H (46-116) U/L Ammonia (19-54) ug/dL Troponin I (0.000-0.056) ng/mL Total Protein 5.4 L (6.4-8.2) g/dL Albumin 1.5 L (3.4-5.0) g/dL Globulin 3.9 (2.6-4.0) g/dL Albumin/Globulin Ratio 0.4 L (0.9-1.6) Lipase (73-393) U/L Urine Color Urine Appearance Urine pH (5.0-8.0) Ur Specific [place] (1.001-1.035) Urine Protein (NEGATIVE) mg/dL Urine Glucose (UA) (NEGATIVE) mg/dL Urine Ketones (NEGATIVE) mg/dL Urine Occult Blood (NEGATIVE) Urine Nitrite (NEGATIVE) Urine Bilirubin (NEGATIVE) Urine Urobilinogen (<2.0) EU/dL Ur Leukocyte Esterase (NEGATIVE) Urine HCG, Qual (NEGATIVE) Ethyl Alcohol mg/dL Med Orders - Current: Current Medications Bupropion HCl (Wellbutrin Xl) 300 mg PO DAILY [facility] Gabapentin (Neurontin) 100 mg PO TID [facility] Last Admin: 05/16/18 06:50 Dose: 100 mg Insulin Aspart (Novolog) 0 unit SUBCUT TIDAC [facility]; Protocol Last Admin: 05/16/18 06:53 Dose: 4 units Insulin Detemir (Levemir) 30 unit SUBCUT DAILY [facility] Lactulose (Chronulac) 10 gm PO Q4H PRN PRN Reason: LIVER Levothyroxine Sodium (Levothyroxine) 25 mcg PO ACBREAKFAST [facility] Last Admin: 05/16/18 06:50 Dose: 25 mcg Morphine Sulfate (Morphine) 2 mg IVPUSH Q4H PRN PRN Reason: Pain (severe 7-10) Stop: 05/16/18 19:09 Nadolol (Naldol) 20 mg PO DAILY [facility] Ondansetron HCl (Zofran) 4 mg IVPUSH Q4H PRN PRN Reason: Nausea Oxcarbazepine (Trileptal) 150 mg PO BID [facility] Pantoprazole Sodium (Protonix Iv) 40 mg IVPUSH Q24H [facility] Last Admin: 05/15/18 19:39 Dose: 40 mg Spironolactone (Aldactone) 50 mg PO DAILY [facility] Discontinued Medications Furosemide (Lasix) 40 mg IVPUSH NOW ONE Stop: 05/15/18 19:15 Last Admin: 05/15/18 19:39 Dose: 40 mg Sodium Chloride (Normal Saline) 1,000 mls @ 125 mls/hr IV STAT [facility] Last Admin: 05/15/18 16:30 Dose: 125 mls/hr Iopamidol (Isovue Multipack-370 (76%)) 100 ml IVPUSH ONETIME STA Stop: 05/15/18 17:39 Last Admin: 05/15/18 17:39 Dose: 100 ml Morphine Sulfate (Morphine) 2 mg IVPUSH ONETIME ONE Stop: 05/15/18 16:13 Last Admin: 05/15/18 16:30 Dose: 2 mg Morphine Sulfate (Morphine) 2 mg IVPUSH Q4H PRN PRN Reason: Pain (severe 7-10) Stop: 05/16/18 19:09 Last Admin: 05/16/18 06:56 Dose: 2 mg Non-Formulary Medication (Lactulose [Lactulose]) 10 ml PO Q4H PRN PRN Reason: LIVER Non-Formulary Medication (Oxcarbazepine) 150 mg PO BID JOYCE Last Admin: 05/15/18 22:13 Dose: Not Given Pantoprazole Sodium (Protonix) 40 mg PO ACBREAKFAST JOYCE Sterile Water (Sterile Water For Injection) 10 ml INJECT NOW STA Stop: 05/15/18 19:35 Last Admin: 05/15/18 19:40 Dose: 10 ml - Exam General: Alert, Oriented, Cooperative, No Acute Distress Lungs: Clear to Auscultation, Normal Respiratory Effort Cardiovascular: Regular Rate, Regular Rhythm GI/Abdominal Exam: Normal Bowel Sounds, Soft, Non-Tender, Distended (ascites.) Extremities: Normal Inspection, Normal Range of Motion, Pedal Edema (+2 non pitting edema) Neurological: No New Focal Deficit Psy/Mental Status: Alert, Normal Affect, Normal Mood - Problem List & Annotations (1) Ascites SNOMED Code(s): 887758896 Code(s): R18.8 - OTHER ASCITES Status: Acute Current Visit: No Qualifiers: Ascites type: due to alcoholic cirrhosis Qualified Code(s): K70.31 - Alcoholic cirrhosis of liver with ascites (2) Cirrhosis SNOMED Code(s): 77462570 Code(s): K74.60 - UNSPECIFIED CIRRHOSIS OF LIVER Status: Chronic Current Visit: No Qualifiers: Hepatic cirrhosis type: alcoholic cirrhosis Ascites presence: with ascites Qualified Code(s): K70.31 - Alcoholic cirrhosis of liver with ascites (3) Esophageal varices SNOMED Code(s): 81902274 Code(s): I85.00 - ESOPHAGEAL VARICES WITHOUT BLEEDING Status: Chronic Current Visit: No Qualifiers: Esophageal varices type: unspecified type Esophageal varices bleeding: without bleeding Qualified Code(s): I85.00 - Esophageal varices without bleeding (4) Hepatitis C SNOMED Code(s): 18094429 Code(s): B19.20 - UNSPECIFIED VIRAL HEPATITIS C WITHOUT HEPATIC COMA Status : Chronic Current Visit: No Qualifiers: Viral hepatitis chronicity: unspecified Hepatic coma status: without hepatic coma Qualified Code(s): B19.20 - Unspecified viral hepatitis C without hepatic coma - Problem List Review Problem List Initiated/Reviewed/Updated: Yes - Plan Plan:: 42 yo female admitted for abdominal pain likely from ascites. 1. Ascites: Pain improved, still feels bloated. Continue Spironolactone. Give Lasix 40 mg IV today again. Spoke with Dr Roca this morning, will try for paracentesis this afternoon possibly tomorrow due to platelets at 42,000. Have Platelets ordered and will be here tomorrow morning. Continue lactulose and Nadolol. Monitor hgb, today at 7.4, will check later today. No active bleeding. No black or bloody BMs and no hematemesis. 2. DM Type 2: Continue Levemir and SSI Novolog. 3. Depression: Stable. Continue meds. VTE prophylaxis: SCDs only due to bleeding risk. Dispo: Possible tomorrow after paracentsis.
[2018-05-16] MEDS: buPROPion 150 MG Tab.ER PO SCH (08:25)
[2018-05-16] MEDS: Spironolactone 25 MG Tab PO SCH (08:25)
[2018-05-16] MEDS: OXcarbazepine 300 MG Tab PO SCH ×2 (08:26→20:40)
[2018-05-16] MEDS: Insulin Detemir 100 Units/ML 3 ML Pen SUBCUT SCH (08:27)
[2018-05-16] MEDS: Lactulose Soln 10 GM/15 ML 15 ML UD Cup PO PRN ×3 (08:40→18:05)
[2018-05-16] MEDS: Morphine 2 MG/ML Syringe IVPUSH PRN ×3 (11:03→21:00)
[2018-05-16] MEDS ORDERED: Furosemide 40 MG/4 ML VIAL IVPUSH ONE (11:41)
[2018-05-16] MEDS: diphenhydrAMINE 25 MG Cap PO PRN (18:05)
[2018-05-16] MEDS: Pantoprazole 40 MG Vial IVPUSH SCH (18:57)
[2018-05-16] MEDS ORDERED: traMADol 50 MG Tab PO PRN (20:51)
[2018-05-17] MEDS: Lactulose Soln 10 GM/15 ML 15 ML UD Cup PO PRN ×3 (00:04→08:57)
[2018-05-17] MEDS: diphenhydrAMINE 25 MG Cap PO PRN (00:04)
[2018-05-17 06:06] LABS: CHLORIDE,CL 102 mmol/L (98-107); SODIUM,NA 134 mmol/L (136-145)
[2018-05-17] MEDS: Gabapentin 100 MG Cap PO SCH ×2 (06:47→14:52)
[2018-05-17] MEDS: Levothyroxine 25 MCG Tab PO SCH (06:47)
[2018-05-17] MEDS: Spironolactone 25 MG Tab PO SCH (08:53)
[2018-05-17] MEDS: OXcarbazepine 300 MG Tab PO SCH (08:55)
[2018-05-17] MEDS: Insulin Detemir 100 Units/ML 3 ML Pen SUBCUT SCH (08:56)
[2018-05-17] MEDS: Insulin Aspart 100 Units/ML 3 ML Pen SUBCUT SCH ×2 (08:56→12:42)
[2018-05-17] MEDS: buPROPion 150 MG Tab.ER PO SCH (08:57)
[2018-05-17] MEDS: Morphine 2 MG/ML Syringe IVPUSH PRN (09:52)
[2018-05-17 12:08] VITALS: BP 98/61
--- NOTE | 2018-05-17 12:57 | PCM.DCSUM1 ---
<Kenji Juarez Z - Last Filed: 05/17/18 12:52> Discharge Summary - Hospital Course HPI Initial Comments: Discharge Summary Date of admission: 05/15/18 Date of discharge: 05/17/19 Admitting diagnosis: #1. Ascites likely secondary to liver dysfunction in the setting of hepatitis C #2. Thrombocytopenia Discharge diagnoses: #1. No ascites fluid was able to be drained after paracenteses #2. Thrombocytopenia with platelets replaced #3. Anemia stable Consultations: Radiology, Dr. Briones Procedures: Therapeutic paracenteses Hospitalization course: Patient was admitted secondary to abdominal pain/ discomfort. It was thought that the patient had ascites secondary to hepatitis C infection resulting liver cirrhosis/dysfunction. Radiology was consulted, Dr. Roca stated that a therapeutic paracentesis can be done however due to the thrombocytopenia with a platelet count of 42,000 patient would need platelets at least above 50,000 for the procedure to be done. Patient on 05/17/18 received an infusion of platelets and was subsequently sent over to radiology for her paracenteses. Patient was brought back soon after as there was not enough fluid for the paracentesis to be done. As the patient was stable, no ascites fluid was drainable, decision was made to discharge the patient with follow-up with her primary care provider Dr. Keith. Patient to be sent home with resumption of her home medications along with a refill of her spironolactone. Diagnosis: Stroke: No - Discharge Data Discharge Date: 05/17/18 Discharge Disposition: Home, Self-Care 01 Condition: Stable - Patient Instructions Diet: Usual Diet as Tolerated Activity: As Tolerated Driving: Do Not Drive Showering/Bathing: May Shower Notify Provider of: Fever, Increased Pain, Swelling and Redness, Drainage, Nausea and/or Vomiting - Discharge Plan Prescriptions/Med Rec: Spironolactone 50 mg PO DAILY 30 Days #30 tablet traMADol [Ultram] 50 mg PO Q8H PRN 5 Days #15 tablet PRN Reason: Pain Home Medications: Home Meds Insulin Aspart [Novolog Flexpen] 10 unit SQ ASDIRECTED 04/22/17 [History] traZODone 25 - 50 mg PO BEDTIME PRN 04/22/17 [History] Insulin Detemir [Levemir] 30 units SQ DAILY 06/13/17 [History] Furosemide 20 mg PO BID 09/09/17 [History] Gabapentin [Neurontin] 100 mg PO TID 09/09/17 [History] Lactulose 10 ml PO Q4H PRN 09/09/17 [History] OXcarbazepine [Oxcarbazepine] 150 mg PO BID 09/09/17 [History] buPROPion HCl [Wellbutrin Xl] 300 mg PO DAILY 09/09/17 [History] Levothyroxine Sodium [Synthroid] 25 mcg PO ACBREAKFAST 10/01/17 [History] Nadolol [Corgard] 20 mg PO DAILY 10/01/17 [History] Pantoprazole [ProTONIX] 40 mg PO ACBREAKFAST 10/01/17 [History] Sucralfate 1 gm PO QIDACANDBED 10/01/17 [History] Spironolactone 50 mg PO DAILY 30 Days #30 tablet 05/17/18 [Rx] traMADol [Ultram] 50 mg PO Q8H PRN 5 Days #15 tablet 05/17/18 [Rx] Oxygen Therapy Mode: Room Air Patient Handouts: Tramadol tablets, Cirrhosis, Spironolactone tablets, Abdominal Pain, Adult, [id number] Referrals: [facility] [Outside] Naima Choi POT PRESS OPERATOR [Nurse Practitioner] - 05/30/18 3:00 pm - Discharge Summary/Plan Comment DC Time >30 min.: No - Patient Data Vitals - Most Recent: Last Vital Signs Temp 36.5 C 05/17/18 12:00 Pulse 82 05/17/18 12:00 Resp 20 05/17/18 12:00 BP 98/61 05/17/18 12:00 Pulse Ox 95 05/17/18 12:00 Weight - Most Recent: 94.755 kg I&O - Last 24 hours: Intake & Output 05/16/18 05/17/18 05/17/18 22:59 06:59 14:59 Intake Total 500 100 316 Output Total 2600 200 Balance -2100 -100 316 Lab Results - Last 24 hrs: Laboratory Results - last 24 hr 05/16/18 05/16/18 05/17/18 Range/Units 09:53 17:49 05:10 WBC 3.13 L (4.0-11.0) K/uL RBC 2.83 L (4.30-5.90) M/uL Hgb 7.7 L (12.0-16.0) g/dL Hct 23.4 L (36.0-46.0) % MCV 82.7 (80.0-98.0) fL MCH 27.2 (27.0-32.0) pg MCHC 32.9 (31.0-37.0) g/dL RDW Std Deviation 62.4 H (28.0-62.0) fl RDW Coeff of Jovan 21 H (11.0-15.0) % Plt Count 47 L (150-400) K/uL Neut % (Auto) 44.1 L (48.0-80.0) % Lymph % (Auto) 38.3 (16.0-40.0) % [place] % (Auto) 12.1 (0.0-15.0) % Eos % (Auto) 4.5 (0.0-7.0) % Baso % (Auto) 1.0 (0.0-1.5) % Neut # (Auto) 1.4 (1.4-5.7) K/uL Lymph # (Auto) 1.2 (0.6-2.4) K/uL [place] # (Auto) 0.4 (0.0-0.8) K/uL Eos # (Auto) 0.1 (0.0-0.7) K/uL Baso # (Auto) 0.0 (0.0-0.1) K/uL Nucleated RBC % 0.0 /100WBC Nucleated RBCs # 0 K/uL INR Sodium (136-145) mmol/L Potassium (3.5-5.1) mmol/L Chloride (98-107) mmol/L Carbon Dioxide (21.0-32.0) mmol/L BUN (7.0-18.0) mg/dL Creatinine (0.6-1.0) mg/dL Est Cr Clr Drug Dosing mL/min Estimated GFR (MDRD) ml/min Glucose (74-106) mg/dL POC Glucose 152 H (60-110) mg/dL Calcium (8.5-10.1) mg/dL Total Bilirubin (0.2-1.0) mg/dL AST (15-37) IU/L ALT (14-63) IU/L Alkaline Phosphatase (46-116) U/L Total Protein (6.4-8.2) g/dL Albumin (3.4-5.0) g/dL Globulin (2.6-4.0) g/dL Albumin/Globulin Ratio (0.9-1.6) Blood Type O POSITIVE 05/17/18 05/17/18 05/17/18 Range/Units 05:10 05:10 06:52 WBC (4.0-11.0) K/uL RBC (4.30-5.90) M/uL Hgb (12.0-16.0) g/dL Hct (36.0-46.0) % MCV (80.0-98.0) fL MCH (27.0-32.0) pg MCHC (31.0-37.0) g/dL RDW Std Deviation (28.0-62.0) fl RDW Coeff of Jovan (11.0-15.0) % Plt Count (150-400) K/uL Neut % (Auto) (48.0-80.0) % Lymph % (Auto) (16.0-40.0) % [place] % (Auto) (0.0-15.0) % Eos % (Auto) (0.0-7.0) % Baso % (Auto) (0.0-1.5) % Neut # (Auto) (1.4-5.7) K/uL Lymph # (Auto) (0.6-2.4) K/uL [place] # (Auto) (0.0-0.8) K/uL Eos # (Auto) (0.0-0.7) K/uL Baso # (Auto) (0.0-0.1) K/uL Nucleated RBC % /100WBC Nucleated RBCs # K/uL INR 1.46 Sodium 134 L (136-145) mmol/L Potassium 3.6 (3.5-5.1) mmol/L Chloride 102 (98-107) mmol/L Carbon Dioxide 28.3 (21.0-32.0) mmol/L BUN 11 (7.0-18.0) mg/dL Creatinine 0.8 (0.6-1.0) mg/dL Est Cr Clr Drug Dosing 89.99 mL/min Estimated GFR (MDRD) > 60.0 ml/min Glucose 178 H (74-106) mg/dL POC Glucose 150 H (60-110) mg/dL Calcium 7.3 L (8.5-10.1) mg/dL Total Bilirubin 1.7 H (0.2-1.0) mg/dL AST 88 H (15-37) IU/L ALT 52 (14-63) IU/L Alkaline Phosphatase 169 H (46-116) U/L Total Protein 5.4 L (6.4-8.2) g/dL Albumin 1.5 L (3.4-5.0) g/dL Globulin 3.9 (2.6-4.0) g/dL Albumin/Globulin Ratio 0.4 L (0.9-1.6) Blood Type 05/17/18 Range/Units 11:20 WBC (4.0-11.0) K/uL RBC (4.30-5.90) M/uL Hgb (12.0-16.0) g/dL Hct (36.0-46.0) % MCV (80.0-98.0) fL MCH (27.0-32.0) pg MCHC (31.0-37.0) g/dL RDW Std Deviation (28.0-62.0) fl RDW Coeff of Jovan (11.0-15.0) % Plt Count (150-400) K/uL Neut % (Auto) (48.0-80.0) % Lymph % (Auto) (16.0-40.0) % [place] % (Auto) (0.0-15.0) % Eos % (Auto) (0.0-7.0) % Baso % (Auto) (0.0-1.5) % Neut # (Auto) (1.4-5.7) K/uL Lymph # (Auto) (0.6-2.4) K/uL [place] # (Auto) (0.0-0.8) K/uL Eos # (Auto) (0.0-0.7) K/uL Baso # (Auto) (0.0-0.1) K/uL Nucleated RBC % /100WBC Nucleated RBCs # K/uL INR Sodium (136-145) mmol/L Potassium (3.5-5.1) mmol/L Chloride (98-107) mmol/L Carbon Dioxide (21.0-32.0) mmol/L BUN (7.0-18.0) mg/dL Creatinine (0.6-1.0) mg/dL Est Cr Clr Drug Dosing mL/min Estimated GFR (MDRD) ml/min Glucose (74-106) mg/dL POC Glucose 222 H (60-110) mg/dL Calcium (8.5-10.1) mg/dL Total Bilirubin (0.2-1.0) mg/dL AST (15-37) IU/L ALT (14-63) IU/L Alkaline Phosphatase (46-116) U/L Total Protein (6.4-8.2) g/dL Albumin (3.4-5.0) g/dL Globulin (2.6-4.0) g/dL Albumin/Globulin Ratio (0.9-1.6) Blood Type Med Orders - Current: Current Medications Bupropion HCl (Wellbutrin Xl) 300 mg PO DAILY [facility] Last Admin: 05/17/18 08:57 Dose: 300 mg Diphenhydramine HCl (Benadryl) 25 mg PO Q6H PRN PRN Reason: Itching Last Admin: 05/17/18 00:04 Dose: 25 mg Gabapentin (Neurontin) 100 mg PO TID [facility] Last Admin: 05/17/18 06:47 Dose: 100 mg Insulin Aspart (Novolog) 0 unit SUBCUT TIDAC [facility]; Protocol Last Admin: 05/17/18 12:42 Dose: 4 units Insulin Detemir (Levemir) 30 unit SUBCUT DAILY [facility] Last Admin: 05/17/18 08:56 Dose: 30 units Lactulose (Chronulac) 10 gm PO Q4H PRN PRN Reason: LIVER Last Admin: 05/17/18 08:57 Dose: 10 gm Levothyroxine Sodium (Levothyroxine) 25 mcg PO ACBREAKFAST [facility] Last Admin: 05/17/18 06:47 Dose: 25 mcg Morphine Sulfate (Morphine) 2 mg IVPUSH Q6H PRN PRN Reason: Pain Last Admin: 05/17/18 09:52 Dose: 2 mg Nadolol (Naldol) 20 mg PO DAILY [facility] Last Admin: 05/17/18 08:53 Dose: 20 mg Ondansetron HCl (Zofran) 4 mg IVPUSH Q4H PRN PRN Reason: Nausea Oxcarbazepine (Trileptal) 150 mg PO BID [facility] Last Admin: 05/17/18 08:55 Dose: 150 mg Pantoprazole Sodium (Protonix Iv) 40 mg IVPUSH Q24H [facility] Last Admin: 05/16/18 18:57 Dose: 40 mg Spironolactone (Aldactone) 50 mg PO DAILY [facility] Last Admin: 05/17/18 08:53 Dose: 50 mg Tramadol HCl (Ultram) 50 mg PO Q8H PRN PRN Reason: Pain Last Admin: 05/17/18 04:12 Dose: 50 mg Discontinued Medications Furosemide (Lasix) 40 mg IVPUSH NOW ONE Stop: 05/15/18 19:15 Last Admin: 05/15/18 19:39 Dose: 40 mg Furosemide (Lasix) 40 mg IVPUSH NOW ONE Stop: 05/16/18 11:42 Last Admin: 05/16/18 11:52 Dose: 40 mg Sodium Chloride (Normal Saline) 1,000 mls @ 125 mls/hr IV STAT [facility] Last Admin: 05/15/18 16:30 Dose: 125 mls/hr Iopamidol (Isovue Multipack-370 (76%)) 100 ml IVPUSH ONETIME STA Stop: 05/15/18 17:39 Last Admin: 05/15/18 17:39 Dose: 100 ml Morphine Sulfate (Morphine) 2 mg IVPUSH ONETIME ONE Stop: 05/15/18 16:13 Last Admin: 05/15/18 16:30 Dose: 2 mg Morphine Sulfate (Morphine) 2 mg IVPUSH Q4H PRN PRN Reason: Pain (severe 7-10) Stop: 05/16/18 19:09 Last Admin: 05/16/18 06:56 Dose: 2 mg Morphine Sulfate (Morphine) 2 mg IVPUSH Q4H PRN PRN Reason: Pain (severe 7-10) Stop: 05/16/18 19:09 Last Admin: 05/16/18 16:15 Dose: 2 mg Non-Formulary Medication (Lactulose [Lactulose]) 10 ml PO Q4H PRN PRN Reason: LIVER Non-Formulary Medication (Oxcarbazepine) 150 mg PO BID [facility] Last Admin: 05/15/18 22:13 Dose: Not Given Pantoprazole Sodium (Protonix) 40 mg PO ACBREAKFAST [facility] Sterile Water (Sterile Water For Injection) 10 ml INJECT NOW STA Stop: 05/15/18 19:35 Last Admin: 05/15/18 19:40 Dose: 10 ml <AbigailDenis Susana - Last Filed: 05/22/18 14:21> - Patient Data Vitals - Most Recent: Last Vital Signs Temp 36.5 C 05/17/18 12:00 Pulse 82 05/17/18 12:00 Resp 20 05/17/18 12:00 BP 98/61 05/17/18 12:00 Pulse Ox 95 05/17/18 12:00 Med Orders - Current: Current Medications Discontinued Medications Bupropion HCl (Wellbutrin Xl) 300 mg PO DAILY [facility] Last Admin: 05/17/18 08:57 Dose: 300 mg Diphenhydramine HCl (Benadryl) 25 mg PO Q6H PRN PRN Reason: Itching Last Admin: 05/17/18 00:04 Dose: 25 mg Furosemide (Lasix) 40 mg IVPUSH NOW ONE Stop: 05/15/18 19:15 Last Admin: 05/15/18 19:39 Dose: 40 mg Furosemide (Lasix) 40 mg IVPUSH NOW ONE Stop: 05/16/18 11:42 Last Admin: 05/16/18 11:52 Dose: 40 mg Gabapentin (Neurontin) 100 mg PO TID [facility] Last Admin: 05/17/18 14:52 Dose: 100 mg Sodium Chloride (Normal Saline) 1,000 mls @ 125 mls/hr IV STAT [facility] Last Admin: 05/15/18 16:30 Dose: 125 mls/hr Insulin Aspart (Novolog) 0 unit SUBCUT TIDAC [facility]; Protocol Last Admin: 05/17/18 12:42 Dose: 4 units Insulin Detemir (Levemir) 30 unit SUBCUT DAILY [facility] Last Admin: 05/17/18 08:56 Dose: 30 units Iopamidol (Isovue Multipack-370 (76%)) 100 ml IVPUSH ONETIME STA Stop: 05/15/18 17:39 Last Admin: 05/15/18 17:39 Dose: 100 ml Lactulose (Chronulac) 10 gm PO Q4H PRN PRN Reason: LIVER Last Admin: 05/17/18 08:57 Dose: 10 gm Levothyroxine Sodium (Levothyroxine) 25 mcg PO ACBREAKFAST [facility] Last Admin: 05/17/18 06:47 Dose: 25 mcg Morphine Sulfate (Morphine) 2 mg IVPUSH ONETIME ONE Stop: 05/15/18 16:13 Last Admin: 05/15/18 16:30 Dose: 2 mg Morphine Sulfate (Morphine) 2 mg IVPUSH Q4H PRN PRN Reason: Pain (severe 7-10) Stop: 05/16/18 19:09 Last Admin: 05/16/18 06:56 Dose: 2 mg Morphine Sulfate (Morphine) 2 mg IVPUSH Q4H PRN PRN Reason: Pain (severe 7-10) Stop: 05/16/18 19:09 Last Admin: 05/16/18 16:15 Dose: 2 mg Morphine Sulfate (Morphine) 2 mg IVPUSH Q6H PRN PRN Reason: Pain Last Admin: 05/17/18 09:52 Dose: 2 mg Nadolol (Naldol) 20 mg PO DAILY [facility] Last Admin: 05/17/18 08:53 Dose: 20 mg Non-Formulary Medication (Lactulose [Lactulose]) 10 ml PO Q4H PRN PRN Reason: LIVER Non-Formulary Medication (Oxcarbazepine) 150 mg PO BID [facility] Last Admin: 05/15/18 22:13 Dose: Not Given Ondansetron HCl (Zofran) 4 mg IVPUSH Q4H PRN PRN Reason: Nausea Oxcarbazepine (Trileptal) 150 mg PO BID [facility] Last Admin: 05/17/18 08:55 Dose: 150 mg Pantoprazole Sodium (Protonix) 40 mg PO ACBREAKFAST [facility] Pantoprazole Sodium (Protonix Iv) 40 mg IVPUSH Q24H [facility] Last Admin: 05/16/18 18:57 Dose: 40 mg Spironolactone (Aldactone) 50 mg PO DAILY [facility] Last Admin: 05/17/18 08:53 Dose: 50 mg Sterile Water (Sterile Water For Injection) 10 ml INJECT NOW STA Stop: 05/15/18 19:35 Last Admin: 05/15/18 19:40 Dose: 10 ml Tramadol HCl (Ultram) 50 mg PO Q8H PRN PRN Reason: Pain Last Admin: 05/17/18 04:12 Dose: 50 mg - Free Text/Narrative Note: I have seen and evaluated the patient. I have discussed findings and treatment plan with the resident. I agree with the assessment and plan outlined in the following note.
--- NOTE | 2018-05-17 15:10 | US ---
EXAMINATION: Limited abdominal ultrasound HISTORY: Ascites COMPARISON: CT dated 05/15/2018 TECHNIQUE: Images were obtained in all 4 quadrants. FINDINGS/IMPRESSION: There is a minute amount of perihepatic fluid otherwise no significant ascites is identified. The paracentesis was canceled as there is no significant fluid pocket to safely obtain fluid.
== END 2018-05-17 15:50 | disposition home or self-care (01) ==
LOC: MW.ED 15:58 → MW.MS 18:57 → MW.ED 20:21 → MW.MS 05-16 10:28
PROVIDERS: ADMIT Internal Medicine; ATTEND Internal Medicine
DX: K70.31 Alcoholic cirrhosis of liver with ascites (principal); B18.2 Chronic viral hepatitis C; D69.6 Thrombocytopenia, unspecified; D64.9 Anemia, unspecified; I85.00 Esophageal varices without bleeding; E11.9 Type 2 diabetes mellitus without complications; E87.1 Hypo-osmolality and hyponatremia; F32.9 Major depressive disorder, single episode, unspecified; K76.6 Portal hypertension; Z88.5 Allergy status to narcotic agent; Z87.891 Personal history of nicotine dependence; Z86.73 Personal history of transient ischemic attack (TIA), and cerebral infarction without residual deficits; Z79.4 Long term (current) use of insulin; Z79.899 Other long term (current) drug therapy
CPT/HCPCS: 36415; 36430; 74177; 76705; 80053; 81003; 81025; 82140; 82962; 83690; 84484; 85025; 85610; 86900; 86901; 93005; 96361; 96374; 96375; 96376; 99285; A9270; C9113; G0378; G0480; J1815; J1940; J2270; J7040; P9034; Q9967

== ENCOUNTER 2018-06-06 06:38 | Emergency (ER) | payer MEDICARE, OTHER ==
[2018-06-06] MEDS ORDERED: Ketorolac 60 MG/2 ML SDV IM ONE (07:10)
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
[2018-06-06 08:19] VITALS: BP 105/66
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
== END 2018-06-06 08:19 | disposition home or self-care (01) ==
LOC: MW.ED 06:38
DX: S80.211A Abrasion, right knee, initial encounter (principal); M25.521 Pain in right elbow; M54.2 Cervicalgia; Z98.51 Tubal ligation status; Z90.49 Acquired absence of other specified parts of digestive tract; Z87.891 Personal history of nicotine dependence; E11.9 Type 2 diabetes mellitus without complications; Z79.4 Long term (current) use of insulin; Z79.899 Other long term (current) drug therapy; Z87.440 Personal history of urinary (tract) infections; V47.5XXA Car driver injured in collision with fixed or stationary object in traffic accident, initial encounter
CPT/HCPCS: 72040; 73080; 73562; 96372; 99283; J1885

== ENCOUNTER 2018-12-07 21:10 | Emergency (ER) | payer MEDICARE, OTHER ==
[2018-12-07] MEDS ORDERED: Ondansetron 4 MG/2 ML SDV IVPUSH ONE (21:28)
[2018-12-07] MEDS ORDERED: Sodium Chloride 0.9% 1,000 ML IV ONE (21:29)
[2018-12-07] MEDS ORDERED: Pantoprazole 40 MG Vial IVPUSH ONE (21:29)
[2018-12-07] MEDS ORDERED: Sodium Chloride 0.9% 20 ML ONE (21:35)
--- NOTE | 2018-12-07 21:39 | EDM.PDOC ---
<ElvinLeslie Colby - Last Filed: 12/07/18 23:12> ED HPI GENERAL MEDICAL PROBLEM - General Chief Complaint: Gastrointestinal Problem Stated Complaint: THROWING UP BLOOD Time Seen by Provider: 12/07/18 21:12 - History of Present Illness INITIAL COMMENTS - FREE TEXT/NARRATIVE: This is Dr. Oconnor dictating addendum note as I am the supervising physician on this case. The patient is very well-known to me and has had multiple ED visits and transfers for esophageal varices upper GI bleeding anemia and other complications of her cirrhosis, hepatitis C, alcohol use and abuse history. I agree with history and physical as above and I reviewed all the patient's testing. The patient's hemoglobin on November 21 was 9.4 and today to 7.0 which mandates a blood transfusion. She was offered a blood transfusion and the case was discussed with Dr. Velez hospitalist but in light of her worsening numbers including a platelet drop from 41to 37 within the same timeframe of November 21 to today and worsening INR of 1.6 to 1.69 and a bilirubin of 1.9 to 2.3 he feels uncomfortable as we do not have appropriate resources. It was explained to the patient that we could start the blood transfusion here but that she would need to be transferred either to [facility] our closest and the one most familiar to her care plan or any other facility that she chooses. She was made aware that we do not have resources such as platelets in case her platelet count drops, fredh frozen plasma if that is indicated, and more importantly we do not have gastroenterology in case she starts vomiting blood again and needs an emergent endoscopy and intervention. She became very angry with the PA and the at bedside is also very angry and states that they do not want to be transferred anywhere and only want to stay here and if she cannot stay here they're going to go home. The patient is awake alert and oriented and able to make decisions but her , according to nursing, had a smell of alcohol on his breath and did admit to the PA and the triage nurse that he has been drinking this evening. Both the patient and are very angry and feel that they're not be given appropriate care here and it was explained to them in multiple ways that we are limited in our resources and that we cannot keep a complicated patient such as herself here in our hospital because we do not have the resources available if she her condition worsens. She is well-known to our facility and knows all of this information but still became very angry and signed out AGAINST MEDICAL ADVICE. After she said that she was going to go home and wanted to sign the papers to go home AGAINST MEDICAL ADVICE; I was in the process of having the hospitalist re- paged to have a dialogue with him to see if he would come in to evaluate the patient and potentially admit her here, despite his reservations and are limited resources, but we were unable able to get to that point as the patient immediately departed the ED before we could get to that level. This behavior by both the patient and are not unusual to my experience with them in the past and the patient has always been resistant to transfer and she is aware of our limited abilities here and it was fully disclosed to her and her at bedside why the transfer was being initiated. We had ordered a blood transfusion to be started here in the ED and then to be continued per EMS in route but she signed out AGAINST MEDICAL ADVICE . - Related Data Allergies Allergy/AdvReac Type Severity Reaction Status Date / Time codeine Allergy Itching Verified 12/07/18 21:23 Home Meds: Home Meds Insulin Aspart [Novolog Flexpen] 10 unit SQ ASDIRECTED 04/22/17 [History] traZODone 25 - 50 mg PO BEDTIME PRN 04/22/17 [History] Insulin Detemir [Levemir] 30 units SQ DAILY 06/13/17 [History] Furosemide 20 mg PO BID 09/09/17 [History] Gabapentin [Neurontin] 100 mg PO TID 09/09/17 [History] Lactulose 10 ml PO Q4H PRN 09/09/17 [History] OXcarbazepine [Oxcarbazepine] 150 mg PO BID 09/09/17 [History] buPROPion HCl [Wellbutrin Xl] 300 mg PO DAILY 09/09/17 [History] Levothyroxine Sodium [Synthroid] 25 mcg PO ACBREAKFAST 10/01/17 [History] Nadolol [Corgard] 20 mg PO DAILY 10/01/17 [History] Pantoprazole [ProTONIX] 40 mg PO ACBREAKFAST 10/01/17 [History] Sucralfate 1 gm PO QIDACANDBED 10/01/17 [History] Spironolactone 50 mg PO DAILY 30 Days #30 tablet 05/17/18 [Rx] traMADol [Ultram] 50 mg PO Q8H PRN 5 Days #15 tablet 05/17/18 [Rx] Course - Vital Signs Last Recorded V/S: Last Vital Signs Temp 36.9 C 12/07/18 22:49 Pulse 99 12/07/18 22:49 Resp 20 12/07/18 22:49 BP 123/92 H 12/07/18 22:49 Pulse Ox 99 12/07/18 22:49 - Orders/Labs/Meds Orders: Active Orders 24 hr Category Date Time Status EKG Documentation Completion [] STAT Care 12/07/18 21:29 Active EKG Documentation Completion [] STAT Care 12/07/18 21:29 Active Hemoccult [Fecal Occult Blood Collection] [] Care 12/07/18 21:35 Active ASDIRECTED Verify Patient Consent Obtain [] ASDIRECTED Care 12/07/18 22:26 Active ANTIBODY IDENTIFICATION [BBK] Stat Lab 12/07/18 21:53 Results DRUG SCREEN, URINE [URCHEM] Stat Lab 12/07/18 21:29 Ordered RED BLOOD CELLS LP [BBK] Stat Lab 12/07/18 21:53 Results TYPE AND SCREEN [BBK] Stat Lab 12/07/18 21:53 Results UA RFX RICKIE AND CULT IF INDIC [URIN] Stat Lab 12/07/18 21:28 Ordered Labs: Laboratory Tests 12/07/18 12/07/18 12/07/18 Range/Units 21:53 21:53 21:53 WBC 4.05 (4.0-11.0) K/uL RBC 2.96 L (4.30-5.90) M/uL Hgb 7.0 L (12.0-16.0) g/dL Hct 22.8 L (36.0-46.0) % MCV 77.0 L (80.0-98.0) fL MCH 23.6 L (27.0-32.0) pg MCHC 30.7 L (31.0-37.0) g/dL RDW Std Deviation 68.6 H (28.0-62.0) fl RDW Coeff of Jovan 25 H (11.0-15.0) % Plt Count 37 L (150-400) K/uL Neut % (Auto) 48.9 (48.0-80.0) % Lymph % (Auto) 36.3 (16.0-40.0) % Gaines % (Auto) 11.6 (0.0-15.0) % Eos % (Auto) 2.7 (0.0-7.0) % Baso % (Auto) 0.5 (0.0-1.5) % Neut # (Auto) 2.0 (1.4-5.7) K/uL Lymph # (Auto) 1.5 (0.6-2.4) K/uL Gaines # (Auto) 0.5 (0.0-0.8) K/uL Eos # (Auto) 0.1 (0.0-0.7) K/uL Baso # (Auto) 0.0 (0.0-0.1) K/uL Nucleated RBC % 0.0 /100WBC Nucleated RBCs # 0 K/uL INR 1.69 Sodium 137 (136-145) mmol/L Potassium 3.8 (3.5-5.1) mmol/L Chloride 104 (98-107) mmol/L Carbon Dioxide 27.1 (21.0-32.0) mmol/L BUN 14 (7.0-18.0) mg/dL Creatinine 0.8 (0.6-1.0) mg/dL Est Cr Clr Drug Dosing 92.41 mL/min Estimated GFR (MDRD) > 60.0 ml/min Glucose 216 H (74-106) mg/dL Calcium 8.0 L (8.5-10.1) mg/dL Total Bilirubin 2.3 H (0.2-1.0) mg/dL AST 106 H (15-37) IU/L ALT 47 (14-63) IU/L Alkaline Phosphatase 173 H (46-116) U/L Ammonia (19-54) ug/dL Total Protein 5.8 L (6.4-8.2) g/dL Albumin 1.7 L (3.4-5.0) g/dL Globulin 4.1 H (2.6-4.0) g/dL Albumin/Globulin Ratio 0.4 L (0.9-1.6) Amylase 55 (25-115) U/L Lipase 123 (73-393) U/L Ethyl Alcohol <3 mg/dL Blood Type Antibody Screen Antibody Identification Crossmatch 12/07/18 12/07/18 Range/Units 21:53 21:53 WBC (4.0-11.0) K/uL RBC (4.30-5.90) M/uL Hgb (12.0-16.0) g/dL Hct (36.0-46.0) % MCV (80.0-98.0) fL MCH (27.0-32.0) pg MCHC (31.0-37.0) g/dL RDW Std Deviation (28.0-62.0) fl RDW Coeff of Jovan (11.0-15.0) % Plt Count (150-400) K/uL Neut % (Auto) (48.0-80.0) % Lymph % (Auto) (16.0-40.0) % Gaines % (Auto) (0.0-15.0) % Eos % (Auto) (0.0-7.0) % Baso % (Auto) (0.0-1.5) % Neut # (Auto) (1.4-5.7) K/uL Lymph # (Auto) (0.6-2.4) K/uL Gaines # (Auto) (0.0-0.8) K/uL Eos # (Auto) (0.0-0.7) K/uL Baso # (Auto) (0.0-0.1) K/uL Nucleated RBC % /100WBC Nucleated RBCs # K/uL INR Sodium (136-145) mmol/L Potassium (3.5-5.1) mmol/L Chloride (98-107) mmol/L Carbon Dioxide (21.0-32.0) mmol/L BUN (7.0-18.0) mg/dL Creatinine (0.6-1.0) mg/dL Est Cr Clr Drug Dosing mL/min Estimated GFR (MDRD) ml/min Glucose (74-106) mg/dL Calcium (8.5-10.1) mg/dL Total Bilirubin (0.2-1.0) mg/dL AST (15-37) IU/L ALT (14-63) IU/L Alkaline Phosphatase (46-116) U/L Ammonia 24 (19-54) ug/dL Total Protein (6.4-8.2) g/dL Albumin (3.4-5.0) g/dL Globulin (2.6-4.0) g/dL Albumin/Globulin Ratio (0.9-1.6) Amylase (25-115) U/L Lipase (73-393) U/L Ethyl Alcohol mg/dL Blood Type O POSITIVE Antibody Screen POSITIVE Antibody Identification Anti-E Crossmatch See Detail Meds: Medications Discontinued Medications Generic Name Dose Route Start Last Admin Trade Name Camron PRN Reason Stop Dose Admin Sodium Chloride 1,000 mls @ 999 mls/hr 12/07/18 21:29 12/07/18 21:50 Normal Saline IV 12/07/18 22:29 999 mls/hr STAT ONE Administration Sodium Chloride Confirm 12/07/18 21:35 12/07/18 21:51 Normal Saline Administered 12/07/18 21:36 1 mls/hr Dose Administration 20 mls @ as directed .ROUTE .STK-MED ONE Ondansetron HCl 4 mg 12/07/18 21:28 12/07/18 21:51 Zofran IVPUSH 12/07/18 21:29 4 mg ONETIME ONE Administration Pantoprazole Sodium 80 mg 12/07/18 21:29 12/07/18 21:51 Protonix Iv IVPUSH 12/07/18 21:30 80 mg .BOLUS ONE Administration Departure - Departure Disposition: Against Medical Advice 07 Clinical Impression: Left against medical advice, Symptomatic anemia, Anemia requiring transfusions Hematemesis Qualifiers: Nausea presence: with nausea Qualified Code(s): K92.0 - Hematemesis - Discharge Information Referrals: PCP,None [Primary Care Provider] - Forms: ED Department Discharge Additional Instructions: Patient did not receive discharge packet as she immediately left ED. - My Orders Last 24 Hours: My Active Orders 12/07/18 21:28 UA RFX RICKIE AND CULT IF INDIC [URIN] Stat 12/07/18 21:29 EKG Documentation Completion [RC] STAT EKG Documentation Completion [RC] STAT DRUG SCREEN, URINE [URCHEM] Stat 12/07/18 21:35 Hemoccult [Fecal Occult Blood Collection] [RC] ASDIRECTED 12/07/18 21:53 ANTIBODY IDENTIFICATION [BBK] Stat RED BLOOD CELLS LP [BBK] Stat TYPE AND SCREEN [BBK] Stat 12/07/18 22:26 Verify Patient Consent Obtain [RC] ASDIRECTED - Assessment/Plan Last 24 Hours: My Active Orders 12/07/18 21:28 UA RFX RICKIE AND CULT IF INDIC [URIN] Stat 12/07/18 21:29 EKG Documentation Completion [RC] STAT EKG Documentation Completion [RC] STAT DRUG SCREEN, URINE [URCHEM] Stat 12/07/18 21:35 Hemoccult [Fecal Occult Blood Collection] [RC] ASDIRECTED 12/07/18 21:53 ANTIBODY IDENTIFICATION [BBK] Stat RED BLOOD CELLS LP [BBK] Stat TYPE AND SCREEN [BBK] Stat 12/07/18 22:26 Verify Patient Consent Obtain [RC] ASDIRECTED <GokulEra - Last Filed: 12/07/18 23:29> ED HPI GENERAL MEDICAL PROBLEM - General Source of Information: Reports: Patient, Family History Limitations: Reports: No Limitations - History of Present Illness INITIAL COMMENTS - FREE TEXT/NARRATIVE: HISTORY AND PHYSICAL: History of present illness: Patient is a 43-year-old female presents to the ED today with concern of one episode of hematemesis that occurred 8 hours ago. Patient states she's also been having dark stools today that are nearly black in color. Patient has a history of esophageal varices, chronic hepatitis C, chronic alcohol abuse, bipolar, hypothyroid, type 2 diabetes, thrombocytopenia, and has been transferred to [facility] in [place] on multiple occasions for bleeding esophageal varices. Patient also has a history of cholecystectomy and bilateral tubal ligation. Patient states that she has been sober from drinking alcohol for the past 3 months. Patient states her issues with vomiting blood and dark stools has improved until today. Patient denies any abdominal pain. Patient denies fever, chills, chest pain, shortness of breath, or cough. Denies headache, neck stiff ness, change in vision, syncope, or near syncope. Denies abdominal pain, diarrhea, constipation, or dysuria. Has not noted any blood in urine. Patient has been eating and drinking appropriately. Review of systems: As per history of present illness and below otherwise all systems reviewed and negative. Past medical history: As per history of present illness and as reviewed below otherwise noncontributory. Surgical history: As per history of present illness and as reviewed below otherwise noncontributory. Social history: See social history for further information Family history: As per history of present illness and as reviewed below otherwise noncontributory. Physical exam: General: Patient is alert, oriented, and in no acute distress. Patient laying comfortably on exam table. HEENT: Atraumatic, normocephalic, pupils equal and reactive bilaterally, negative for conjunctival pallor or scleral icterus, mucous membranes dry, TMs normal bilaterally, throat clear, neck supple, nontender, trachea midline. No drooling or trismus noted. No meningeal signs. No hot potato voice noted. Lungs: Clear to auscultation, breath sounds equal bilaterally, chest nontender. Heart: S1S2, regular rate and rhythm without overt murmur Abdomen: Soft, nondistended, nontender. Negative for masses or hepatosplenomegaly. Negative for costovertebral tenderness. Pelvis: Stable nontender. Genitourinary: Deferred. Rectal: Positive Hemoccult. Skin: Intact, warm, dry. No lesions or rashes noted. Generalized jaundice. Extremities: Atraumatic, negative for cords or calf pain. Neurovascular unremarkable. Neuro: Awake, alert, oriented. Cranial nerves II through XII unremarkable. Cerebellum unremarkable. Motor and sensory unremarkable throughout. Exam nonfocal. Notes: Dr. Oconnor verbally involved in patient care. Dr. Velez, hospitalist construction job cost estimator, consulted on patient and states that he is not comfortable admitting patient here as we do not have the resources if patients condition were to worsen. I discussed this with patient and the emergent need for blood products and the need for transfer, but patient adamantly refuses transfer regardless of where to and she immediately becomes more angry. I offered to start blood products in the ED and arrange transfer but patient continues to adamantly refuse requesting discharge to home and signed AMA paperwork. I did tell patient I was willing to recall Dr. Velez (since she is refusing transfer) and rediscuss patients potential to be admitted to our hospital, but she immediately walked out of the ED before I had a chance to call. Diagnostics: CBC, CMP, UA, lipase, amylase, PT/INR, chest x-ray, ammonia, alcohol, urine drug screen, type and screen, Hemoccult Therapeutics: Zofran, Protonix, Saline Prescription: None Impression: Against Medical Advice Symptomatic anemia H/O hematemesis Hemoccult positive Plan: 1. Patient left ED prior to discharge instructions. Definitive disposition and diagnosis as appropriate pending reevaluation and review of above. abdominal Pain Score (Numeric/FACES): 6 Past Medical History - Past Health History Medical/Surgical History: Denies Medical/Surgical History HEENT History: Reports: Impaired Vision Cardiovascular History: Reports: None Other Cardiovascular History: Takes diuretics for portal HTN and swelling Respiratory History: Reports: Asthma Gastrointestinal History: Reports: Cholelithiasis, GI Bleed, Hepatitis, Other ( See Below) Other Gastrointestinal History: Gastric Ulcer, pancreatitis? 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 Immunologic History: Reports: None Other Immunologic History: Hep-c Oncologic (Cancer) History: Reports: None Dermatologic History: Reports: Urticaria - Infectious Disease History Infectious Disease History: Reports: Hepatitis C - Past Surgical History Head Surgeries/Procedures: Reports: None HEENT Surgical History: Reports: None Respiratory Surgical History: Reports: None GI Surgical History: Reports: Cholecystectomy, EGD Female Surgical History: Reports: Section, Tubal Ligation Endocrine Surgical History: Reports: None Neurological Surgical History: Reports: Lumbar Spine Musculoskeletal Surgical History: Reports: Other (See Below) Other Musculoskeletal Surgeries/Procedures:: ankle surgery, back surgery Dermatological Surgical History: Reports: None Social & Family History - Family History Family Medical History: Noncontributory - Tobacco Use Smoking Status *Q: Current Every Day Smoker Years of Tobacco use: 10 Packs/Tins Daily: 0.5 - Caffeine Use Caffeine Use: Reports: None Other Caffeine Use: occasional coffee, unsweetened tea - Recreational Drug Use Recreational Drug Use: No ED ROS GENERAL - Review of Systems Review Of Systems: ROS reveals no pertinent complaints other than HPI. ED EXAM, GENERAL - Physical Exam Exam: See Below (See dictation) Course - Orders/Labs/Meds Labs: Laboratory Tests 12/07/18 12/07/18 12/07/18 Range/Units 21:53 21:53 21:53 WBC 4.05 (4.0-11.0) K/uL RBC 2.96 L (4.30-5.90) M/uL Hgb 7.0 L (12.0-16.0) g/dL Hct 22.8 L (36.0-46.0) % MCV 77.0 L (80.0-98.0) fL MCH 23.6 L (27.0-32.0) pg MCHC 30.7 L (31.0-37.0) g/dL RDW Std Deviation 68.6 H (28.0-62.0) fl RDW Coeff of Jovan 25 H (11.0-15.0) % Plt Count 37 L (150-400) K/uL Neut % (Auto) 48.9 (48.0-80.0) % Lymph % (Auto) 36.3 (16.0-40.0) % Gaines % (Auto) 11.6 (0.0-15.0) % Eos % (Auto) 2.7 (0.0-7.0) % Baso % (Auto) 0.5 (0.0-1.5) % Neut # (Auto) 2.0 (1.4-5.7) K/uL Lymph # (Auto) 1.5 (0.6-2.4) K/uL Gaines # (Auto) 0.5 (0.0-0.8) K/uL Eos # (Auto) 0.1 (0.0-0.7) K/uL Baso # (Auto) 0.0 (0.0-0.1) K/uL Nucleated RBC % 0.0 /100WBC Nucleated RBCs # 0 K/uL INR 1.69 Sodium 137 (136-145) mmol/L Potassium 3.8 (3.5-5.1) mmol/L Chloride 104 (98-107) mmol/L Carbon Dioxide 27.1 (21.0-32.0) mmol/L BUN 14 (7.0-18.0) mg/dL Creatinine 0.8 (0.6-1.0) mg/dL Est Cr Clr Drug Dosing 92.41 mL/min Estimated GFR (MDRD) > 60.0 ml/min Glucose 216 H (74-106) mg/dL Calcium 8.0 L (8.5-10.1) mg/dL Total Bilirubin 2.3 H (0.2-1.0) mg/dL AST 106 H (15-37) IU/L ALT 47 (14-63) IU/L Alkaline Phosphatase 173 H (46-116) U/L Ammonia (19-54) ug/dL Total Protein 5.8 L (6.4-8.2) g/dL Albumin 1.7 L (3.4-5.0) g/dL Globulin 4.1 H (2.6-4.0) g/dL Albumin/Globulin Ratio 0.4 L (0.9-1.6) Amylase 55 (25-115) U/L Lipase 123 (73-393) U/L Ethyl Alcohol <3 mg/dL Blood Type Antibody Screen Antibody Identification Crossmatch 12/07/18 12/07/18 Range/Units 21:53 21:53 WBC (4.0-11.0) K/uL RBC (4.30-5.90) M/uL Hgb (12.0-16.0) g/dL Hct (36.0-46.0) % MCV (80.0-98.0) fL MCH (27.0-32.0) pg MCHC (31.0-37.0) g/dL RDW Std Deviation (28.0-62.0) fl RDW Coeff of Jovan (11.0-15.0) % Plt Count (150-400) K/uL Neut % (Auto) (48.0-80.0) % Lymph % (Auto) (16.0-40.0) % Gaines % (Auto) (0.0-15.0) % Eos % (Auto) (0.0-7.0) % Baso % (Auto) (0.0-1.5) % Neut # (Auto) (1.4-5.7) K/uL Lymph # (Auto) (0.6-2.4) K/uL Gaines # (Auto) (0.0-0.8) K/uL Eos # (Auto) (0.0-0.7) K/uL Baso # (Auto) (0.0-0.1) K/uL Nucleated RBC % /100WBC Nucleated RBCs # K/uL INR Sodium (136-145) mmol/L Potassium (3.5-5.1) mmol/L Chloride (98-107) mmol/L Carbon Dioxide (21.0-32.0) mmol/L BUN (7.0-18.0) mg/dL Creatinine (0.6-1.0) mg/dL Est Cr Clr Drug Dosing mL/min Estimated GFR (MDRD) ml/min Glucose (74-106) mg/dL Calcium (8.5-10.1) mg/dL Total Bilirubin (0.2-1.0) mg/dL AST (15-37) IU/L ALT (14-63) IU/L Alkaline Phosphatase (46-116) U/L Ammonia 24 (19-54) ug/dL Total Protein (6.4-8.2) g/dL Albumin (3.4-5.0) g/dL Globulin (2.6-4.0) g/dL Albumin/Globulin Ratio (0.9-1.6) Amylase (25-115) U/L Lipase (73-393) U/L Ethyl Alcohol mg/dL Blood Type O POSITIVE Antibody Screen POSITIVE Antibody Identification Anti-E Crossmatch See Detail Departure - Departure Time of Disposition: 23:27
[2018-12-07 22:20] LABS: BLOOD UREA NITROGEN,BUN 14 mg/dL (7.0-18.0); CARBON DIOXIDE,CO2 27.1 mmol/L (21.0-32.0); CHLORIDE,CL 104 mmol/L (98-107); GLUCOSE RANDOM 216 mg/dL (74-106); LIPASE 123 U/L (73-393); POTASSIUM,K 3.8 mmol/L (3.5-5.1); SODIUM,NA 137 mmol/L (136-145)
--- NOTE | 2018-12-07 22:41 | CR ---
INDICATION: Vomiting blood, black stool TECHNIQUE: Chest radiograph 1 view COMPARISON: 05/08/18 FINDINGS: Mediastinum: The mediastinum is normal in appearance. The heart silhouette is normal in size and morphology. Lung: Both lungs are unremarkable in appearance with small lung volumes. No sign of pleural effusion seen. No pneumothorax is identified. IMPRESSION: 1. No acute cardiopulmonary disease is seen. Dictated by: Ephraim Ramirez MD @ 12/07/2018 22:39:53 (Electronically Signed)
[2018-12-07 22:57] VITALS: BP 123/92; PULSE 99
== END 2018-12-07 22:55 | disposition left against medical advice (07) ==
LOC: MW.ED 21:10
DX: K92.0 Hematemesis (principal); D64.9 Anemia, unspecified; R19.5 Other fecal abnormalities; E11.9 Type 2 diabetes mellitus without complications; E03.9 Hypothyroidism, unspecified; F17.210 Nicotine dependence, cigarettes, uncomplicated; Z88.5 Allergy status to narcotic agent; Z79.4 Long term (current) use of insulin; Z79.899 Other long term (current) drug therapy
CPT/HCPCS: 71045; 80053; 82140; 82150; 83690; 85025; 85610; 93005; 96361; 96374; 96375; 99285; C9113; G0480; J2405; J7040; 86850; 86870; 86900; 86901; 86902; 86920; 86921; 86922

== ENCOUNTER 2018-12-13 16:38 | Inpatient (IN) | payer MEDICARE, OTHER ==
[2018-12-13] MEDS ORDERED: Sodium Chloride 0.9% 10 ML Syringe FLUSH PRN (16:49)
[2018-12-13] MEDS ORDERED: Sodium Chloride 0.9% 2.5 ML Syringe FLUSH PRN (16:49)
[2018-12-13] MEDS ORDERED: Sodium Chloride 0.9% 1,000 ML IV ONE (16:49)
--- NOTE | 2018-12-13 16:50 | EDM.PDOC ---
<Annette Sahw - Last Filed: 12/13/18 17:58> ED HPI GENERAL MEDICAL PROBLEM - General Chief Complaint: Fever Stated Complaint: HIGH FEVER Time Seen by Provider: 12/13/18 16:50 Source of Information: Reports: Patient History Limitations: Reports: No Limitations - History of Present Illness INITIAL COMMENTS - FREE TEXT/NARRATIVE: HISTORY AND PHYSICAL: History of present illness: Patient is a 43-year-old female presents to the ED with complaint of fever and back pain. She states she is having fever tmax 102, back pain, frequent urination x 3 days. She states she did have some blood in her urine which has since resolved and now urine is cloudy. She reports some mild lower abdominal pain. She denies nausea or vomiting. Patient has a history of hepatitis, alcohol abuse, esophageal varices. She was seen in the ED 6 days ago for hematemesis and found to have a low H&H, she was offered transfer and patient left AMA at that time. She states she is no longer vomiting blood and her bowel movements are no longer black. Patient initially afebrile on arrival but temperature up to 102F. Review of systems: As per history of present illness and below otherwise all systems reviewed and negative. Past medical history: As per history of present illness and as reviewed below otherwise noncontributory. Surgical history: As per history of present illness and as reviewed below otherwise noncontributory. Social history: No reported history of drug or alcohol abuse. Family history: As per history of present illness and as reviewed below otherwise noncontributory. Physical exam: General: Patient sitting comfortably in no acute distress and nontoxic appearing HEENT: Atraumatic, normocephalic, pupils reactive, negative for conjunctival pallor or scleral icterus, mucous membranes moist, throat clear, neck supple, nontender, trachea midline. No meningeal signs. Lungs: Clear to auscultation, breath sounds equal bilaterally, chest nontender. Heart: S1S2, regular, negative for clicks, rubs, or overt murmur. Abdomen: Soft, nondistended. Mild suprapubic tenderness to palpation. Negative for masses or hepatosplenomegaly. Right costovertebral tenderness. No rigidity, rebound, guarding. Pelvis: Stable nontender. Genitourinary: Deferred. Rectal: Deferred. Extremities: Atraumatic, negative for cords or calf pain. Neurovascular unremarkable. Neuro: Awake, alert, oriented. Cranial nerves II through XII unremarkable. Cerebellum unremarkable. Motor and sensory unremarkable throughout. Exam nonfocal. Notes: Patient is febrile and tachycardic, blood cultures and lactate drawn. Patient's preliminary hemoglobin is 6.6. Type and screen and RBCs ordered. Official CBC results are needing to be redrawn due labs being flagged. Disposition of patient is pending this result. Signed out to KALINA He at 1800. Diagnostics: CBC, CMP, PT/INR, UA, Type & Screen, blood culture x 2 Therapeutics: 1L NS IV Tylenol 1g PO 40mEq Potassium PO Prescriptions: Impression: UTI, anemia Plan: [] Definitive disposition and diagnosis as appropriate pending reevaluation and review of above. Bilateral Flank Pain Score (Numeric/FACES): 6 - Related Data Allergies Allergy/AdvReac Type Severity Reaction Status Date / Time codeine Allergy Itching Verified 12/13/18 16:53 Home Meds: Home Meds Insulin Aspart [Novolog Flexpen] 10 unit SQ ASDIRECTED 04/22/17 [History] traZODone 25 - 50 mg PO BEDTIME PRN 04/22/17 [History] Insulin Detemir [Levemir] 30 units SQ DAILY 06/13/17 [History] Furosemide 20 mg PO BID 09/09/17 [History] Gabapentin [Neurontin] 100 mg PO TID 09/09/17 [History] Lactulose 10 ml PO Q4H PRN 09/09/17 [History] OXcarbazepine [Oxcarbazepine] 150 mg PO BID 09/09/17 [History] buPROPion HCl [Wellbutrin Xl] 300 mg PO DAILY 09/09/17 [History] Levothyroxine Sodium [Synthroid] 25 mcg PO ACBREAKFAST 10/01/17 [History] Nadolol [Corgard] 20 mg PO DAILY 10/01/17 [History] Pantoprazole [ProTONIX] 40 mg PO ACBREAKFAST 10/01/17 [History] Sucralfate 1 gm PO QIDACANDBED 10/01/17 [History] Spironolactone 50 mg PO DAILY 30 Days #30 tablet 05/17/18 [Rx] traMADol [Ultram] 50 mg PO Q8H PRN 5 Days #15 tablet 05/17/18 [Rx] Past Medical History - Past Health History Medical/Surgical History: Denies Medical/Surgical History HEENT History: Reports: Impaired Vision Cardiovascular History: Reports: None Other Cardiovascular History: Takes diuretics for portal HTN and swelling Respiratory History: Reports: Asthma Gastrointestinal History: Reports: Cholelithiasis, GI Bleed, Hepatitis, Other ( See Below) Other Gastrointestinal History: Gastric Ulcer, pancreatitis? and ileius Genitourinary History: Reports: UTI, Recurrent ORTHO NURSE History: Reports: Musculoskeletal History: Reports: None Other Musculoskeletal History: Herniated disk, lumbar fracture, fractured right ankle Neurological History: Reports: Concussion, Other (See Below) Other Neuro History: 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 Immunologic History: Reports: None Other Immunologic History: Hep-c Oncologic (Cancer) History: Reports: None Dermatologic History: Reports: Urticaria - Infectious Disease History Infectious Disease History: Reports: Hepatitis C - Past Surgical History Head Surgeries/Procedures: Reports: None HEENT Surgical History: Reports: None Respiratory Surgical History: Reports: None GI Surgical History: Reports: Cholecystectomy, EGD Female Surgical History: Reports: Section, Tubal Ligation Endocrine Surgical History: Reports: None Neurological Surgical History: Reports: Lumbar Spine Musculoskeletal Surgical History: Reports: Other (See Below) Other Musculoskeletal Surgeries/Procedures:: ankle surgery, back surgery Dermatological Surgical History: Reports: None Social & Family History - Family History Family Medical History: Noncontributory - Caffeine Use Caffeine Use: Reports: None Other Caffeine Use: occasional coffee, unsweetened tea ED ROS GENERAL - Review of Systems Review Of Systems: ROS reveals no pertinent complaints other than HPI. ED EXAM, RENAL/ - Physical Exam Exam: See Below (see dictation) Course - Vital Signs Last Recorded V/S: Last Vital Signs Temp 38.7 C H 12/13/18 18:09 Pulse 114 H 12/13/18 18:09 Resp 20 12/13/18 18:09 BP 119/77 12/13/18 18:09 Pulse Ox 100 12/13/18 18:09 - Orders/Labs/Meds Orders: Active Orders 24 hr Category Date Time Status Admission Status [Patient Status] [ADT] Stat ADT 12/13/18 18:46 Ordered Verify Patient Consent Obtain [RC] ASDIRECTED Care 12/13/18 17:47 Active CULTURE BLOOD [BC] Stat Lab 12/13/18 17:53 Results CULTURE BLOOD [BC] Stat Lab 12/13/18 18:04 Received CULTURE URINE [RM] Stat Lab 12/13/18 17:14 Received RED BLOOD CELLS LP [BBK] Stat Lab 12/13/18 17:53 Received TYPE AND SCREEN [BBK] Stat Lab 12/13/18 17:53 Received Sodium Chloride 0.9% [Saline Flush] Med 12/13/18 16:49 Active 10 ml FLUSH ASDIRECTED PRN Sodium Chloride 0.9% [Saline Flush] Med 12/13/18 16:49 Active 2.5 ml FLUSH ASDIRECTED PRN Blood Culture x2 Reflex Set [OM.PC] Stat Oth 12/13/18 17:46 Ordered Saline Lock Insert [OM.PC] Stat Oth 12/13/18 16:49 Ordered Transfuse Red Blood Cells [COMM] Stat Oth 12/13/18 17:47 Ordered Medication Orders Sodium Chloride (Saline Flush) 10 ml FLUSH ASDIRECTED PRN PRN Reason: Keep Vein Open Last Admin: 12/13/18 17:55 Dose: 10 ml Sodium Chloride (Saline Flush) 2.5 ml FLUSH ASDIRECTED PRN PRN Reason: Keep Vein Open Last Admin: 12/13/18 17:55 Dose: 2.5 ml Labs: Laboratory Tests 12/13/18 12/13/18 12/13/18 Range/Units 17:10 17:10 17:10 WBC 5.19 (4.0-11.0) K/uL RBC 2.82 L (4.30-5.90) M/uL Hgb 6.6 L (12.0-16.0) g/dL Hct 21.3 L (36.0-46.0) % MCV 75.5 L (80.0-98.0) fL MCH 23.4 L (27.0-32.0) pg MCHC 31.0 (31.0-37.0) g/dL RDW Std Deviation 68.3 H (28.0-62.0) fl RDW Coeff of Jovan 25 H (11.0-15.0) % Plt Count 54 L (150-400) K/uL Neut % (Auto) 64.1 (48.0-80.0) % Lymph % (Auto) 20.8 (16.0-40.0) % Allen % (Auto) 14.1 (0.0-15.0) % Eos % (Auto) 0.8 (0.0-7.0) % Baso % (Auto) 0.2 (0.0-1.5) % Neut # (Auto) 3.3 (1.4-5.7) K/uL Lymph # (Auto) 1.1 (0.6-2.4) K/uL Allen # (Auto) 0.7 (0.0-0.8) K/uL Eos # (Auto) 0.0 (0.0-0.7) K/uL Baso # (Auto) 0.0 (0.0-0.1) K/uL Nucleated RBC % 0.0 /100WBC Nucleated RBCs # 0 K/uL INR 1.57 Lactate (0.20-2.00) mmol/L Sodium 129 L (136-145) mmol/L Potassium 3.0 L (3.5-5.1) mmol/L Chloride 97 L (98-107) mmol/L Carbon Dioxide 27.4 (21.0-32.0) mmol/L BUN 9 (7.0-18.0) mg/dL Creatinine 1.0 (0.6-1.0) mg/dL Est Cr Clr Drug Dosing 71.27 mL/min Estimated GFR (MDRD) > 60.0 ml/min Glucose 259 H (74-106) mg/dL Calcium 6.8 L (8.5-10.1) mg/dL Total Bilirubin 2.0 H (0.2-1.0) mg/dL AST 80 H (15-37) IU/L ALT 45 (14-63) IU/L Alkaline Phosphatase 190 H (46-116) U/L Total Protein 6.0 L (6.4-8.2) g/dL Albumin 1.7 L (3.4-5.0) g/dL Globulin 4.3 H (2.6-4.0) g/dL Albumin/Globulin Ratio 0.4 L (0.9-1.6) Urine Color Urine Appearance Urine pH (5.0-8.0) Ur Specific [place] (1.001-1.035) Urine Protein (NEGATIVE) mg/dL Urine Glucose (UA) (NEGATIVE) mg/dL Urine Ketones (NEGATIVE) mg/dL Urine Occult Blood (NEGATIVE) Urine Nitrite (NEGATIVE) Urine Bilirubin (NEGATIVE) Urine Ictotest Urine Urobilinogen (<2.0) EU/dL Ur Leukocyte Esterase (NEGATIVE) Urine RBC (0-2/HPF) Urine WBC (0-5/HPF) Ur Epithelial Cells (NONE-FEW) Urine Bacteria (NEGATIVE) Urine Mucus (NONE-MOD) 12/13/18 12/13/18 Range/Units 17:14 17:53 WBC (4.0-11.0) K/uL RBC (4.30-5.90) M/uL Hgb (12.0-16.0) g/dL Hct (36.0-46.0) % MCV (80.0-98.0) fL MCH (27.0-32.0) pg MCHC (31.0-37.0) g/dL RDW Std Deviation (28.0-62.0) fl RDW Coeff of Jovan (11.0-15.0) % Plt Count (150-400) K/uL Neut % (Auto) (48.0-80.0) % Lymph % (Auto) (16.0-40.0) % Allen % (Auto) (0.0-15.0) % Eos % (Auto) (0.0-7.0) % Baso % (Auto) (0.0-1.5) % Neut # (Auto) (1.4-5.7) K/uL Lymph # (Auto) (0.6-2.4) K/uL Allen # (Auto) (0.0-0.8) K/uL Eos # (Auto) (0.0-0.7) K/uL Baso # (Auto) (0.0-0.1) K/uL Nucleated RBC % /100WBC Nucleated RBCs # K/uL INR Lactate 2.3 H (0.20-2.00) mmol/L Sodium (136-145) mmol/L Potassium (3.5-5.1) mmol/L Chloride (98-107) mmol/L Carbon Dioxide (21.0-32.0) mmol/L BUN (7.0-18.0) mg/dL Creatinine (0.6-1.0) mg/dL Est Cr Clr Drug Dosing mL/min Estimated GFR (MDRD) ml/min Glucose (74-106) mg/dL Calcium (8.5-10.1) mg/dL Total Bilirubin (0.2-1.0) mg/dL AST (15-37) IU/L ALT (14-63) IU/L Alkaline Phosphatase (46-116) U/L Total Protein (6.4-8.2) g/dL Albumin (3.4-5.0) g/dL Globulin (2.6-4.0) g/dL Albumin/Globulin Ratio (0.9-1.6) Urine Color YELLOW Urine Appearance SLT CLOUDY Urine pH 6.0 (5.0-8.0) Ur Specific [place] 1.025 (1.001-1.035) Urine Protein 30 H (NEGATIVE) mg/dL Urine Glucose (UA) 250 H (NEGATIVE) mg/dL Urine Ketones NEGATIVE (NEGATIVE) mg/dL Urine Occult Blood MODERATE H (NEGATIVE) Urine Nitrite POSITIVE H (NEGATIVE) Urine Bilirubin SMALL H (NEGATIVE) Urine Ictotest POSITIVE Urine Urobilinogen 1.0 (<2.0) EU/dL Ur Leukocyte Esterase MODERATE H (NEGATIVE) Urine RBC 3-6 (0-2/HPF) Urine WBC TO NUMEROUS TO COUNT H (0-5/HPF) Ur Epithelial Cells MODERATE (NONE-FEW) Urine Bacteria 2+ H (NEGATIVE) Urine Mucus MODERATE (NONE-MOD) Meds: Medications Generic Name Dose Route Start Last Admin Trade Name Freq PRN Reason Stop Dose Admin Sodium Chloride 10 ml 12/13/18 16:49 12/13/18 17:55 Saline Flush FLUSH 10 ml ASDIRECTED PRN Administration Keep Vein Open Sodium Chloride 2.5 ml 12/13/18 16:49 12/13/18 17:55 Saline Flush FLUSH 2.5 ml ASDIRECTED PRN Administration Keep Vein Open Discontinued Medications Generic Name Dose Route Start Last Admin Trade Name Freq PRN Reason Stop Dose Admin Acetaminophen 1,000 mg 12/13/18 17:50 12/13/18 17:55 Tylenol Extra Strength PO 12/13/18 17:51 1,000 mg ONETIME ONE Administration Acetaminophen Confirm 12/13/18 17:51 12/13/18 18:09 Tylenol Extra Strength Administered 12/13/18 17:52 Not Given Dose 1,000 mg .ROUTE .STK-MED ONE Sodium Chloride 1,000 mls @ 999 mls/hr 12/13/18 16:49 12/13/18 17:10 Normal Saline IV 12/13/18 17:49 999 mls/hr STAT ONE Administration Ceftriaxone Sodium/Dextrose 1 50 mls @ 100 mls/hr 12/13/18 17:29 12/13/18 17: 55 gm/ Premix IV 12/13/18 17:58 100 mls/hr ONETIME ONE Administration Potassium Chloride 40 meq 12/13/18 17:52 12/13/18 18:06 Potassium Chloride PO 12/13/18 17:53 40 meq ONETIME ONE Administration Departure - Departure Disposition: Refer to Observation Clinical Impression: Acute pyelonephritis Anemia Qualifiers: Anemia type: unspecified type Qualified Code(s): D64.9 - Anemia, unspecified - Discharge Information Referrals: Philly Keith MD [Primary Care Provider] - Forms: ED Department Discharge - My Orders Last 24 Hours: My Active Orders 12/13/18 18:46 Admission Status [Patient Status] [ADT] Stat - Assessment/Plan Last 24 Hours: My Active Orders 12/13/18 18:46 Admission Status [Patient Status] [ADT] Stat <Era Hodgson - Last Filed: 12/13/18 18:51> ED HPI GENERAL MEDICAL PROBLEM - History of Present Illness INITIAL COMMENTS - FREE TEXT/NARRATIVE: I am making an addendum as I have assumed care of this patient at 1800. From one week ago, patient's platelets have increased from 37,000 to just over 50, 000. She has not had any episodes of hematemesis or dark stools since she was seen in the ED [address] Hayes, hospitalist controls project engineer, consulted on patient and accepting of admission for observation. Add to therapeutics: Rocephin Add to impression: Acute pyelonephritis Departure - Departure Time of Disposition: 18:50
[2018-12-13] MEDS ORDERED: cefTRIAXone 1 GM in Premix Bag 1 BAG IV ONE (17:29)
[2018-12-13 17:38] LABS: BLOOD UREA NITROGEN,BUN 9 mg/dL (7.0-18.0); CARBON DIOXIDE,CO2 27.4 mmol/L (21.0-32.0); CHLORIDE,CL 97 mmol/L (98-107); GLUCOSE RANDOM 259 mg/dL (74-106); SODIUM,NA 129 mmol/L (136-145)
[2018-12-13] MEDS ORDERED: Acetaminophen 500 MG Tab PO ONE (17:50)
[2018-12-13] MEDS ORDERED: Acetaminophen 500 MG Tab ONE (17:51)
[2018-12-13] MEDS ORDERED: Potassium Chloride 10% 20 MEQ/15 ML Soln 30 ML UD Cup PO ONE (17:52)
--- NOTE | 2018-12-13 19:21 | PCM.HP.2 ---
H&P History of Present Illness - General Date of Service: 12/13/18 Admit Problem/Dx: Admission Diagnosis/Problem Admission Diagnosis/Problem Acute pyelonephritis - History of Present Illness Initial Comments - Free Text/Narative: The patient is a 43 year old female who presents today for fever, back pain, increase urinary urgency x 3 days. Reports blood in urine at first but it has since resolved. Reports history of UTIs, denies hx of kidney stones. One week ago she was seen in the ER for hematemesis, at that time she had a platelet count of 7, offered transfer declined and left AMA. Reports she was having black stools as well. No longer have hematemesis or black/bloody stools, last stool was roxanna color. Hx of GI bleed, scoped in [place] 4-5 months ago, which would show gastric ulcer, reports negative colonoscopy. Reports history of hepatitis C which has been treated, has been scheduled for liver biopsy but hasn't been done because of low platelets. Also reports history of esophageal varices and portal HTN. Has been taking medications as prescribed. Denies shortness of breath, chest pain, vomiting, or abdominal pain. Patient reports last drink was one glass of wine 2 weeks ago, she knows she can't be a drinker if she were to ever need a transplant so she doesn't drink nearly as much as she did a few years ago. In the ER, found to be anemic with hemoglobin of 6.6, thrombocytopenic, INR wnl , elevated lactate of 2.3, hyponatremic with Na of 129, hypokalemic with K of 3 , kidney function wnl, bili and AST elevated but at baseline for her. UA positive for infection and blood. IN the ER she was given Tylenol for fever, dose of Rocephin, 40 mEq of potassium ,and 1 L of fluid. PCP- Dr. Keith Bilateral Flank Pain Score (Numeric/FACES): 6 - Related Data Allergies/Adverse Reactions: Allergies Allergy/AdvReac Type Severity Reaction Status Date / Time codeine Allergy Itching Verified 12/13/18 16:53 Home Medications: Home Meds Insulin Aspart [Novolog Flexpen] 10 unit SQ ASDIRECTED 04/22/17 [History] traZODone 25 - 50 mg PO BEDTIME PRN 04/22/17 [History] Insulin Detemir [Levemir] 30 units SQ DAILY 06/13/17 [History] Furosemide 20 mg PO BID 09/09/17 [History] Gabapentin [Neurontin] 100 mg PO TID 09/09/17 [History] Lactulose 10 ml PO Q4H PRN 09/09/17 [History] OXcarbazepine [Oxcarbazepine] 150 mg PO BID 09/09/17 [History] buPROPion HCl [Wellbutrin Xl] 300 mg PO DAILY 09/09/17 [History] Levothyroxine Sodium [Synthroid] 25 mcg PO ACBREAKFAST 10/01/17 [History] Nadolol [Corgard] 20 mg PO DAILY 10/01/17 [History] Pantoprazole [ProTONIX] 40 mg PO ACBREAKFAST 10/01/17 [History] Sucralfate 1 gm PO QIDACANDBED 10/01/17 [History] Spironolactone 50 mg PO DAILY 30 Days #30 tablet 05/17/18 [Rx] traMADol [Ultram] 50 mg PO Q8H PRN 5 Days #15 tablet 05/17/18 [Rx] Past Medical History - Past Health History Medical/Surgical History: Denies Medical/Surgical History HEENT History: Reports: Impaired Vision Cardiovascular History: Reports: None Other Cardiovascular History: Takes diuretics for portal HTN and swelling Respiratory History: Reports: Asthma Gastrointestinal History: Reports: Cholelithiasis, GI Bleed, Hepatitis, Other ( See Below) Other Gastrointestinal History: Gastric Ulcer, pancreatitis? and ileius Genitourinary History: Reports: UTI, Recurrent [employer] History: Reports: Musculoskeletal History: Reports: None Other Musculoskeletal History: Herniated disk, lumbar fracture, fractured right ankle Neurological History: Reports: Concussion, Other (See Below) Other Neuro History: 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 Immunologic History: Reports: None Other Immunologic History: Hep-c Oncologic (Cancer) History: Reports: None Dermatologic History: Reports: Urticaria - Infectious Disease History Infectious Disease History: Reports: Hepatitis C - Past Surgical History Head Surgeries/Procedures: Reports: None HEENT Surgical History: Reports: None Respiratory Surgical History: Reports: None GI Surgical History: Reports: Cholecystectomy, EGD Female Surgical History: Reports: Section, Tubal Ligation Endocrine Surgical History: Reports: None Neurological Surgical History: Reports: Lumbar Spine Musculoskeletal Surgical History: Reports: Other (See Below) Other Musculoskeletal Surgeries/Procedures:: ankle surgery, back surgery Dermatological Surgical History: Reports: None Social & Family History - Family History Family Medical History: Noncontributory - Tobacco Use Smoking Status *Q: Current Every Day Smoker Years of Tobacco use: 15 Packs/Tins Daily: 0.3 - Caffeine Use Caffeine Use: Reports: None Other Caffeine Use: occasional coffee, unsweetened tea - Alcohol Use Alcohol Use History: Yes - Recreational Drug Use Recreational Drug Use: No H&P Review of Systems - Review of Systems: Review Of Systems: See Below General: Reports: Fever, Chills, Weakness HEENT: Reports: No Symptoms Pulmonary: Reports: No Symptoms Cardiovascular: Reports: Edema. Denies: Chest Pain Gastrointestinal: Reports: Nausea. Denies: Abdominal Pain, Bloody Stool, Constipation, Hematemesis, Vomiting Genitourinary: Reports: Dysuria, Urgency Musculoskeletal: Reports: Back Pain Skin: Reports: No Symptoms Psychiatric: Reports: No Symptoms Neurological: Reports: No Symptoms Hematologic/Lymphatic: Reports: Anemia Immunologic: Reports: No Symptoms Exam - Exam Exam: See Below - Vital Signs Vital Signs: Last Vital Signs Temp 101.8 F H 12/13/18 18:48 Pulse 116 H 12/13/18 18:48 Resp 20 12/13/18 18:09 BP 119/78 12/13/18 18:48 Pulse Ox 99 12/13/18 18:48 Weight: 86.183 kg - Exam General: Alert, Oriented, Cooperative HEENT: Conjunctiva Clear, EOMI, Mucosa Moist & [place], Posterior Pharynx Clear, Pupils Equal, Pupils Reactive Neck: Supple, Trachea Midline Lungs: Clear to Auscultation, Normal Respiratory Effort Cardiovascular: Regular Rhythm, Tachycardia GI/Abdominal Exam: Normal Bowel Sounds, Soft, Non-Tender, Distended. No: Guarding, Rigid, Rebound Back Exam: CVA Tenderness (R) Extremities: Pedal Edema Skin: Warm, Dry, Intact Psychiatric: Alert, Normal Affect, Normal Mood - Patient Data Lab Results Last 24 hrs: Laboratory Results - last 24 hr 12/13/18 12/13/18 12/13/18 Range/Units 17:10 17:10 17:10 WBC 5.19 (4.0-11.0) K/uL RBC 2.82 L (4.30-5.90) M/uL Hgb 6.6 L (12.0-16.0) g/dL Hct 21.3 L (36.0-46.0) % MCV 75.5 L (80.0-98.0) fL MCH 23.4 L (27.0-32.0) pg MCHC 31.0 (31.0-37.0) g/dL RDW Std Deviation 68.3 H (28.0-62.0) fl RDW Coeff of Jovan 25 H (11.0-15.0) % Plt Count 54 L (150-400) K/uL Neut % (Auto) 64.1 (48.0-80.0) % Lymph % (Auto) 20.8 (16.0-40.0) % [place] % (Auto) 14.1 (0.0-15.0) % Eos % (Auto) 0.8 (0.0-7.0) % Baso % (Auto) 0.2 (0.0-1.5) % Neut # (Auto) 3.3 (1.4-5.7) K/uL Lymph # (Auto) 1.1 (0.6-2.4) K/uL [place] # (Auto) 0.7 (0.0-0.8) K/uL Eos # (Auto) 0.0 (0.0-0.7) K/uL Baso # (Auto) 0.0 (0.0-0.1) K/uL Nucleated RBC % 0.0 /100WBC Nucleated RBCs # 0 K/uL INR 1.57 Lactate (0.20-2.00) mmol/L Sodium 129 L (136-145) mmol/L Potassium 3.0 L (3.5-5.1) mmol/L Chloride 97 L (98-107) mmol/L Carbon Dioxide 27.4 (21.0-32.0) mmol/L BUN 9 (7.0-18.0) mg/dL Creatinine 1.0 (0.6-1.0) mg/dL Est Cr Clr Drug Dosing 71.27 mL/min Estimated GFR (MDRD) > 60.0 ml/min Glucose 259 H (74-106) mg/dL Calcium 6.8 L (8.5-10.1) mg/dL Total Bilirubin 2.0 H (0.2-1.0) mg/dL AST 80 H (15-37) IU/L ALT 45 (14-63) IU/L Alkaline Phosphatase 190 H (46-116) U/L Total Protein 6.0 L (6.4-8.2) g/dL Albumin 1.7 L (3.4-5.0) g/dL Globulin 4.3 H (2.6-4.0) g/dL Albumin/Globulin Ratio 0.4 L (0.9-1.6) Urine Color Urine Appearance Urine pH (5.0-8.0) Ur Specific [place] (1.001-1.035) Urine Protein (NEGATIVE) mg/dL Urine Glucose (UA) (NEGATIVE) mg/dL Urine Ketones (NEGATIVE) mg/dL Urine Occult Blood (NEGATIVE) Urine Nitrite (NEGATIVE) Urine Bilirubin (NEGATIVE) Urine Ictotest Urine Urobilinogen (<2.0) EU/dL Ur Leukocyte Esterase (NEGATIVE) Urine RBC (0-2/HPF) Urine WBC (0-5/HPF) Ur Epithelial Cells (NONE-FEW) Urine Bacteria (NEGATIVE) Urine Mucus (NONE-MOD) 12/13/18 12/13/18 Range/Units 17:14 17:53 WBC (4.0-11.0) K/uL RBC (4.30-5.90) M/uL Hgb (12.0-16.0) g/dL Hct (36.0-46.0) % MCV (80.0-98.0) fL MCH (27.0-32.0) pg MCHC (31.0-37.0) g/dL RDW Std Deviation (28.0-62.0) fl RDW Coeff of Jovan (11.0-15.0) % Plt Count (150-400) K/uL Neut % (Auto) (48.0-80.0) % Lymph % (Auto) (16.0-40.0) % [place] % (Auto) (0.0-15.0) % Eos % (Auto) (0.0-7.0) % Baso % (Auto) (0.0-1.5) % Neut # (Auto) (1.4-5.7) K/uL Lymph # (Auto) (0.6-2.4) K/uL [place] # (Auto) (0.0-0.8) K/uL Eos # (Auto) (0.0-0.7) K/uL Baso # (Auto) (0.0-0.1) K/uL Nucleated RBC % /100WBC Nucleated RBCs # K/uL INR Lactate 2.3 H (0.20-2.00) mmol/L Sodium (136-145) mmol/L Potassium (3.5-5.1) mmol/L Chloride (98-107) mmol/L Carbon Dioxide (21.0-32.0) mmol/L BUN (7.0-18.0) mg/dL Creatinine (0.6-1.0) mg/dL Est Cr Clr Drug Dosing mL/min Estimated GFR (MDRD) ml/min Glucose (74-106) mg/dL Calcium (8.5-10.1) mg/dL Total Bilirubin (0.2-1.0) mg/dL AST (15-37) IU/L ALT (14-63) IU/L Alkaline Phosphatase (46-116) U/L Total Protein (6.4-8.2) g/dL Albumin (3.4-5.0) g/dL Globulin (2.6-4.0) g/dL Albumin/Globulin Ratio (0.9-1.6) Urine Color YELLOW Urine Appearance SLT CLOUDY Urine pH 6.0 (5.0-8.0) Ur Specific [place] 1.025 (1.001-1.035) Urine Protein 30 H (NEGATIVE) mg/dL Urine Glucose (UA) 250 H (NEGATIVE) mg/dL Urine Ketones NEGATIVE (NEGATIVE) mg/dL Urine Occult Blood MODERATE H (NEGATIVE) Urine Nitrite POSITIVE H (NEGATIVE) Urine Bilirubin SMALL H (NEGATIVE) Urine Ictotest POSITIVE Urine Urobilinogen 1.0 (<2.0) EU/dL Ur Leukocyte Esterase MODERATE H (NEGATIVE) Urine RBC 3-6 (0-2/HPF) Urine WBC TO NUMEROUS TO COUNT H (0-5/HPF) Ur Epithelial Cells MODERATE (NONE-FEW) Urine Bacteria 2+ H (NEGATIVE) Urine Mucus MODERATE (NONE-MOD) Result Diagrams: 12/13/18 17:10 12/13/18 17:10 Jason Results Last 24 hrs: Microbiology 12/13/18 17:53 Anaerobic Blood Culture - Final Blood - Venous Problem List Initiated/Reviewed/Updated: Yes Orders Last 24hrs: Active Orders 24 hr Category Date Time Status Admission Status [Patient Status] [ADT] Stat ADT 12/13/18 18:46 Active Verify Patient Consent Obtain [RC] ASDIRECTED Care 12/13/18 17:47 Active CULTURE BLOOD [BC] Stat Lab 12/13/18 17:53 Results CULTURE BLOOD [BC] Stat Lab 12/13/18 18:04 Received CULTURE URINE [RM] Stat Lab 12/13/18 17:14 Received MAGNESIUM [CHEM] Stat Lab 12/13/18 18:51 Ordered RED BLOOD CELLS LP [BBK] Stat Lab 12/13/18 17:53 Received TYPE AND SCREEN [BBK] Stat Lab 12/13/18 17:53 Received Sodium Chloride 0.9% [Saline Flush] Med 12/13/18 16:49 Active 10 ml FLUSH ASDIRECTED PRN Sodium Chloride 0.9% [Saline Flush] Med 12/13/18 16:49 Active 2.5 ml FLUSH ASDIRECTED PRN Blood Culture x2 Reflex Set [OM.PC] Stat Oth 12/13/18 17:46 Ordered Saline Lock Insert [OM.PC] Stat Oth 12/13/18 16:49 Ordered Transfuse Red Blood Cells [COMM] Stat Oth 12/13/18 17:47 Ordered Medication Orders Sodium Chloride (Saline Flush) 10 ml FLUSH ASDIRECTED PRN PRN Reason: Keep Vein Open Last Admin: 12/13/18 17:55 Dose: 10 ml Sodium Chloride (Saline Flush) 2.5 ml FLUSH ASDIRECTED PRN PRN Reason: Keep Vein Open Last Admin: 12/13/18 17:55 Dose: 2.5 ml Assessment/Plan Comment:: 1. Admit for observation 2. Code status- full 3. Vitals per routine 4. Strict I/Os 5. Diet- diabetic 6. DVT prophylaxis with SCDs 7.Sepsis secondary to pyelonephritis- continue Rocephin, urine culture pending, trend lactate, IVF at 150 cc/hr, blood cultures pending 8. Anemia- recent hematemesis and black stool but since resolved and hx of gastric ulcers- ER ordered 2 units, check H/H 1 hour post blood transfusion. Baseline Hemoglobin is 8-10. IV protonix. 9. Thrombocytopenia- likely related to liver disease- monitor 10. Hyponatremia- IVF 11. Hypokalemia- check magnesium and replace if needed. Given 40 mEq in ER, will give another 40 and recheck in AM 12. DMII- accucheck and home insulin- Levemir 30 plus sliding scale
[2018-12-13] MEDS ORDERED: Ondansetron 4 MG/2 ML SDV IVPUSH PRN (19:28)
[2018-12-13] MEDS ORDERED: Potassium Chloride 20 MEQ Tab.ER PO ONE (19:28)
[2018-12-13] MEDS ORDERED: Sodium Chloride 0.9% 1,000 ML IV SCH (19:30)
[2018-12-13] MEDS: Pantoprazole 40 MG in Sodium Chloride 0.9% 10 ML IV SCH (22:06)
[2018-12-13] MEDS: Gabapentin 100 MG Cap PO SCH (22:42)
[2018-12-13] MEDS: OXCARBAZEPINE 150 MG PO SCH (22:42)
[2018-12-13] MEDS: Insulin Aspart 100 Units/ML 3 ML Pen SUBCUT SCH (22:55)
[2018-12-13] MEDS: Furosemide 20 MG Tab PO SCH (23:33)
[2018-12-14] MEDS ORDERED: Diphenhydramine/Lidocaine/Nystatin Suspension 237 ML Bottle PO PRN (01:50)
[2018-12-14] MEDS: Acetaminophen 325 MG Tab PO PRN ×4 (02:48→17:45)
[2018-12-14] MEDS: Gabapentin 100 MG Cap PO SCH ×3 (06:40→22:59)
[2018-12-14] MEDS ORDERED: Magnesium Sulfate/Water 4 GM in Premix Bag 1 BAG IV ONE (07:15)
[2018-12-14 07:22] LABS: BLOOD UREA NITROGEN,BUN 9 mg/dL (7.0-18.0); CARBON DIOXIDE,CO2 25.4 mmol/L (21.0-32.0); CHLORIDE,CL 102 mmol/L (98-107); GLUCOSE RANDOM 220 mg/dL (74-106); POTASSIUM,K 3.3 mmol/L (3.5-5.1); SODIUM,NA 133 mmol/L (136-145)
[2018-12-14] MEDS ORDERED: Potassium Chloride 20 MEQ Tab.ER PO ONE ×2 (07:30→12:00)
[2018-12-14] MEDS ORDERED: Levothyroxine 25 MCG Tab PO SCH (07:30)
[2018-12-14] MEDS: Insulin Aspart 100 Units/ML 3 ML Pen SUBCUT SCH ×5 (07:34→17:46)
[2018-12-14] MEDS: buPROPion 150 MG Tab.ER PO SCH (08:01)
[2018-12-14] MEDS: Furosemide 20 MG Tab PO SCH ×2 (08:01→13:53)
--- NOTE | 2018-12-14 08:04 | PCM.PN ---
- General Info Date of Service: 12/14/18 Subjective Update: The patient was admitted last night for anemia and sepsis. Patient received 2 units of blood. Her lactate resolved. She reports feeling much better but she is still spiking fevers, Tmax 102.2. Patient denies chest pain, shortness of breath, nausea/vomiting but does endorse constipation and would like a stool softener. There was some confusion about her insulin last night and the told the nurses a different regiment. Per the patient she takes 30 units long acting and sliding scale with meals which corresponds to what is in the chart. Upon chart review the patient has had recurrent UTIs all growing Ecoli which have been ESBL since May 2017. Patient reports at least 3 UTIs a year for the past 5 years, she reports she usually just gets oral antibiotics and it clears up. She is unsure which antibiotic she has been treated with in the past. She has never had a urology workup. - Review of Systems General: Reports: Fever HEENT: Reports: No Symptoms Pulmonary: Reports: No Symptoms Cardiovascular: Reports: No Symptoms Gastrointestinal: Reports: Constipation. Denies: Diarrhea, Nausea, Vomiting Genitourinary: Reports: Dysuria Musculoskeletal: Reports: No Symptoms Skin: Reports: No Symptoms Neurological: Reports: No Symptoms Psychiatric: Reports: No Symptoms - Patient Data Vitals - Most Recent: Last Vital Signs Temp 99.0 F 12/14/18 07:45 Pulse 95 12/14/18 07:45 Resp 16 12/14/18 07:45 BP 112/71 12/14/18 07:45 Pulse Ox 95 12/14/18 07:45 Weight - Most Recent: 95.028 kg I&O - Last 24 Hours: Intake & Output 12/13/18 12/14/18 12/14/18 22:59 06:59 14:59 Intake Total 1857 Output Total 725 Balance 1132 Lab Results Last 24 Hours: Laboratory Results - last 24 hr 12/13/18 12/13/18 12/13/18 Range/Units 17:10 17:10 17:10 WBC 5.19 (4.0-11.0) K/uL RBC 2.82 L (4.30-5.90) M/uL Hgb 6.6 L (12.0-16.0) g/dL Hct 21.3 L (36.0-46.0) % MCV 75.5 L (80.0-98.0) fL MCH 23.4 L (27.0-32.0) pg MCHC 31.0 (31.0-37.0) g/dL RDW Std Deviation 68.3 H (28.0-62.0) fl RDW Coeff of Jovan 25 H (11.0-15.0) % Plt Count 54 L (150-400) K/uL Neut % (Auto) 64.1 (48.0-80.0) % Lymph % (Auto) 20.8 (16.0-40.0) % [place] % (Auto) 14.1 (0.0-15.0) % Eos % (Auto) 0.8 (0.0-7.0) % Baso % (Auto) 0.2 (0.0-1.5) % Neut # (Auto) 3.3 (1.4-5.7) K/uL Lymph # (Auto) 1.1 (0.6-2.4) K/uL [place] # (Auto) 0.7 (0.0-0.8) K/uL Eos # (Auto) 0.0 (0.0-0.7) K/uL Baso # (Auto) 0.0 (0.0-0.1) K/uL Nucleated RBC % 0.0 /100WBC Nucleated RBCs # 0 K/uL INR 1.57 Lactate (0.20-2.00) mmol/L Sodium 129 L (136-145) mmol/L Potassium 3.0 L (3.5-5.1) mmol/L Chloride 97 L (98-107) mmol/L Carbon Dioxide 27.4 (21.0-32.0) mmol/L BUN 9 (7.0-18.0) mg/dL Creatinine 1.0 (0.6-1.0) mg/dL Est Cr Clr Drug Dosing 71.27 mL/min Estimated GFR (MDRD) > 60.0 ml/min Glucose 259 H (74-106) mg/dL POC Glucose (60-110) mg/dL Calcium 6.8 L (8.5-10.1) mg/dL Magnesium (1.8-2.4) mg/dL Total Bilirubin 2.0 H (0.2-1.0) mg/dL AST 80 H (15-37) IU/L ALT 45 (14-63) IU/L Alkaline Phosphatase 190 H (46-116) U/L Total Protein 6.0 L (6.4-8.2) g/dL Albumin 1.7 L (3.4-5.0) g/dL Globulin 4.3 H (2.6-4.0) g/dL Albumin/Globulin Ratio 0.4 L (0.9-1.6) Urine Color Urine Appearance Urine pH (5.0-8.0) Ur Specific [place] (1.001-1.035) Urine Protein (NEGATIVE) mg/dL Urine Glucose (UA) (NEGATIVE) mg/dL Urine Ketones (NEGATIVE) mg/dL Urine Occult Blood (NEGATIVE) Urine Nitrite (NEGATIVE) Urine Bilirubin (NEGATIVE) Urine Ictotest Urine Urobilinogen (<2.0) EU/dL Ur Leukocyte Esterase (NEGATIVE) Urine RBC (0-2/HPF) Urine WBC (0-5/HPF) Ur Epithelial Cells (NONE-FEW) Urine Bacteria (NEGATIVE) Urine Mucus (NONE-MOD) Blood Type Antibody Screen Antibody Identification Crossmatch 12/13/18 12/13/18 12/13/18 Range/Units 17:10 17:14 17:53 WBC (4.0-11.0) K/uL RBC (4.30-5.90) M/uL Hgb (12.0-16.0) g/dL Hct (36.0-46.0) % MCV (80.0-98.0) fL MCH (27.0-32.0) pg MCHC (31.0-37.0) g/dL RDW Std Deviation (28.0-62.0) fl RDW Coeff of Jovan (11.0-15.0) % Plt Count (150-400) K/uL Neut % (Auto) (48.0-80.0) % Lymph % (Auto) (16.0-40.0) % [place] % (Auto) (0.0-15.0) % Eos % (Auto) (0.0-7.0) % Baso % (Auto) (0.0-1.5) % Neut # (Auto) (1.4-5.7) K/uL Lymph # (Auto) (0.6-2.4) K/uL [place] # (Auto) (0.0-0.8) K/uL Eos # (Auto) (0.0-0.7) K/uL Baso # (Auto) (0.0-0.1) K/uL Nucleated RBC % /100WBC Nucleated RBCs # K/uL INR Lactate (0.20-2.00) mmol/L Sodium (136-145) mmol/L Potassium (3.5-5.1) mmol/L Chloride (98-107) mmol/L Carbon Dioxide (21.0-32.0) mmol/L BUN (7.0-18.0) mg/dL Creatinine (0.6-1.0) mg/dL Est Cr Clr Drug Dosing mL/min Estimated GFR (MDRD) ml/min Glucose (74-106) mg/dL POC Glucose (60-110) mg/dL Calcium (8.5-10.1) mg/dL Magnesium 1.5 L (1.8-2.4) mg/dL Total Bilirubin (0.2-1.0) mg/dL AST (15-37) IU/L ALT (14-63) IU/L Alkaline Phosphatase (46-116) U/L Total Protein (6.4-8.2) g/dL Albumin (3.4-5.0) g/dL Globulin (2.6-4.0) g/dL Albumin/Globulin Ratio (0.9-1.6) Urine Color YELLOW Urine Appearance SLT CLOUDY Urine pH 6.0 (5.0-8.0) Ur Specific [place] 1.025 (1.001-1.035) Urine Protein 30 H (NEGATIVE) mg/dL Urine Glucose (UA) 250 H (NEGATIVE) mg/dL Urine Ketones NEGATIVE (NEGATIVE) mg/dL Urine Occult Blood MODERATE H (NEGATIVE) Urine Nitrite POSITIVE H (NEGATIVE) Urine Bilirubin SMALL H (NEGATIVE) Urine Ictotest POSITIVE Urine Urobilinogen 1.0 (<2.0) EU/dL Ur Leukocyte Esterase MODERATE H (NEGATIVE) Urine RBC 3-6 (0-2/HPF) Urine WBC TO NUMEROUS TO COUNT H (0-5/HPF) Ur Epithelial Cells MODERATE (NONE-FEW) Urine Bacteria 2+ H (NEGATIVE) Urine Mucus MODERATE (NONE-MOD) Blood Type O POSITIVE Antibody Screen POSITIVE Antibody Identification Anti-E Crossmatch See Detail 12/13/18 12/13/18 12/13/18 Range/Units 17:53 19:33 22:34 WBC (4.0-11.0) K/uL RBC (4.30-5.90) M/uL Hgb (12.0-16.0) g/dL Hct (36.0-46.0) % MCV (80.0-98.0) fL MCH (27.0-32.0) pg MCHC (31.0-37.0) g/dL RDW Std Deviation (28.0-62.0) fl RDW Coeff of Jovan (11.0-15.0) % Plt Count (150-400) K/uL Neut % (Auto) (48.0-80.0) % Lymph % (Auto) (16.0-40.0) % [place] % (Auto) (0.0-15.0) % Eos % (Auto) (0.0-7.0) % Baso % (Auto) (0.0-1.5) % Neut # (Auto) (1.4-5.7) K/uL Lymph # (Auto) (0.6-2.4) K/uL [place] # (Auto) (0.0-0.8) K/uL Eos # (Auto) (0.0-0.7) K/uL Baso # (Auto) (0.0-0.1) K/uL Nucleated RBC % /100WBC Nucleated RBCs # K/uL INR Lactate 2.3 H (0.20-2.00) mmol/L Sodium (136-145) mmol/L Potassium (3.5-5.1) mmol/L Chloride (98-107) mmol/L Carbon Dioxide (21.0-32.0) mmol/L BUN (7.0-18.0) mg/dL Creatinine (0.6-1.0) mg/dL Est Cr Clr Drug Dosing mL/min Estimated GFR (MDRD) ml/min Glucose (74-106) mg/dL POC Glucose 253 H 235 H (60-110) mg/dL Calcium (8.5-10.1) mg/dL Magnesium (1.8-2.4) mg/dL Total Bilirubin (0.2-1.0) mg/dL AST (15-37) IU/L ALT (14-63) IU/L Alkaline Phosphatase (46-116) U/L Total Protein (6.4-8.2) g/dL Albumin (3.4-5.0) g/dL Globulin (2.6-4.0) g/dL Albumin/Globulin Ratio (0.9-1.6) Urine Color Urine Appearance Urine pH (5.0-8.0) Ur Specific [place] (1.001-1.035) Urine Protein (NEGATIVE) mg/dL Urine Glucose (UA) (NEGATIVE) mg/dL Urine Ketones (NEGATIVE) mg/dL Urine Occult Blood (NEGATIVE) Urine Nitrite (NEGATIVE) Urine Bilirubin (NEGATIVE) Urine Ictotest Urine Urobilinogen (<2.0) EU/dL Ur Leukocyte Esterase (NEGATIVE) Urine RBC (0-2/HPF) Urine WBC (0-5/HPF) Ur Epithelial Cells (NONE-FEW) Urine Bacteria (NEGATIVE) Urine Mucus (NONE-MOD) Blood Type Antibody Screen Antibody Identification Crossmatch 12/13/18 12/14/18 12/14/18 Range/Units 22:55 03:33 06:31 WBC (4.0-11.0) K/uL RBC (4.30-5.90) M/uL Hgb 8.2 L (12.0-16.0) g/dL Hct 25.9 L (36.0-46.0) % MCV (80.0-98.0) fL MCH (27.0-32.0) pg MCHC (31.0-37.0) g/dL RDW Std Deviation (28.0-62.0) fl RDW Coeff of Jovan (11.0-15.0) % Plt Count (150-400) K/uL Neut % (Auto) (48.0-80.0) % Lymph % (Auto) (16.0-40.0) % [place] % (Auto) (0.0-15.0) % Eos % (Auto) (0.0-7.0) % Baso % (Auto) (0.0-1.5) % Neut # (Auto) (1.4-5.7) K/uL Lymph # (Auto) (0.6-2.4) K/uL [place] # (Auto) (0.0-0.8) K/uL Eos # (Auto) (0.0-0.7) K/uL Baso # (Auto) (0.0-0.1) K/uL Nucleated RBC % /100WBC Nucleated RBCs # K/uL INR Lactate 1.8 (0.20-2.00) mmol/L Sodium (136-145) mmol/L Potassium (3.5-5.1) mmol/L Chloride (98-107) mmol/L Carbon Dioxide (21.0-32.0) mmol/L BUN (7.0-18.0) mg/dL Creatinine (0.6-1.0) mg/dL Est Cr Clr Drug Dosing mL/min Estimated GFR (MDRD) ml/min Glucose (74-106) mg/dL POC Glucose (60-110) mg/dL Calcium (8.5-10.1) mg/dL Magnesium 1.5 L (1.8-2.4) mg/dL Total Bilirubin (0.2-1.0) mg/dL AST (15-37) IU/L ALT (14-63) IU/L Alkaline Phosphatase (46-116) U/L Total Protein (6.4-8.2) g/dL Albumin (3.4-5.0) g/dL Globulin (2.6-4.0) g/dL Albumin/Globulin Ratio (0.9-1.6) Urine Color Urine Appearance Urine pH (5.0-8.0) Ur Specific [place] (1.001-1.035) Urine Protein (NEGATIVE) mg/dL Urine Glucose (UA) (NEGATIVE) mg/dL Urine Ketones (NEGATIVE) mg/dL Urine Occult Blood (NEGATIVE) Urine Nitrite (NEGATIVE) Urine Bilirubin (NEGATIVE) Urine Ictotest Urine Urobilinogen (<2.0) EU/dL Ur Leukocyte Esterase (NEGATIVE) Urine RBC (0-2/HPF) Urine WBC (0-5/HPF) Ur Epithelial Cells (NONE-FEW) Urine Bacteria (NEGATIVE) Urine Mucus (NONE-MOD) Blood Type Antibody Screen Antibody Identification Crossmatch 12/14/18 12/14/18 12/14/18 Range/Units 06:38 06:38 06:59 WBC 7.39 (4.0-11.0) K/uL RBC 3.37 L (4.30-5.90) M/uL Hgb 8.2 L (12.0-16.0) g/dL Hct 25.8 L (36.0-46.0) % MCV 76.6 L (80.0-98.0) fL MCH 24.3 L (27.0-32.0) pg MCHC 31.8 (31.0-37.0) g/dL RDW Std Deviation 61.4 (28.0-62.0) fl RDW Coeff of Jovan 22 H (11.0-15.0) % Plt Count 55 L (150-400) K/uL Neut % (Auto) 75.9 (48.0-80.0) % Lymph % (Auto) 12.2 L (16.0-40.0) % [place] % (Auto) 11.5 (0.0-15.0) % Eos % (Auto) 0.3 (0.0-7.0) % Baso % (Auto) 0.1 (0.0-1.5) % Neut # (Auto) 5.6 (1.4-5.7) K/uL Lymph # (Auto) 0.9 (0.6-2.4) K/uL [place] # (Auto) 0.9 H (0.0-0.8) K/uL Eos # (Auto) 0.0 (0.0-0.7) K/uL Baso # (Auto) 0.0 (0.0-0.1) K/uL Nucleated RBC % 0.0 /100WBC Nucleated RBCs # 0 K/uL INR Lactate (0.20-2.00) mmol/L Sodium 133 L (136-145) mmol/L Potassium 3.3 L (3.5-5.1) mmol/L Chloride 102 (98-107) mmol/L Carbon Dioxide 25.4 (21.0-32.0) mmol/L BUN 9 (7.0-18.0) mg/dL Creatinine 1.0 (0.6-1.0) mg/dL Est Cr Clr Drug Dosing 71.27 mL/min Estimated GFR (MDRD) > 60.0 ml/min Glucose 220 H (74-106) mg/dL POC Glucose 191 H (60-110) mg/dL Calcium 6.5 L (8.5-10.1) mg/dL Magnesium (1.8-2.4) mg/dL Total Bilirubin 2.5 H (0.2-1.0) mg/dL AST 72 H (15-37) IU/L ALT 44 (14-63) IU/L Alkaline Phosphatase 186 H (46-116) U/L Total Protein 5.7 L (6.4-8.2) g/dL Albumin 1.6 L (3.4-5.0) g/dL Globulin 4.1 H (2.6-4.0) g/dL Albumin/Globulin Ratio 0.4 L (0.9-1.6) Urine Color Urine Appearance Urine pH (5.0-8.0) Ur Specific [place] (1.001-1.035) Urine Protein (NEGATIVE) mg/dL Urine Glucose (UA) (NEGATIVE) mg/dL Urine Ketones (NEGATIVE) mg/dL Urine Occult Blood (NEGATIVE) Urine Nitrite (NEGATIVE) Urine Bilirubin (NEGATIVE) Urine Ictotest Urine Urobilinogen (<2.0) EU/dL Ur Leukocyte Esterase (NEGATIVE) Urine RBC (0-2/HPF) Urine WBC (0-5/HPF) Ur Epithelial Cells (NONE-FEW) Urine Bacteria (NEGATIVE) Urine Mucus (NONE-MOD) Blood Type Antibody Screen Antibody Identification Crossmatch Jason Results Last 24 Hours: Microbiology 12/13/18 17:53 Anaerobic Blood Culture - Final Blood - Venous Med Orders - Current: Current Medications Acetaminophen (Tylenol) 650 mg PO Q4H PRN PRN Reason: Pain/Fever Last Admin: 12/14/18 06:48 Dose: 650 mg Bupropion HCl (Wellbutrin Xl) 300 mg PO DAILY [facility] Diphenhydramine/Nystatin/Lidocaine (Magic Mouthwash) 10 ml PO QID PRN PRN Reason: Sore Throat Furosemide (Lasix) 20 mg PO BIDDIURETIC [facility] Last Admin: 12/13/18 23:33 Dose: 20 mg Gabapentin (Neurontin) 100 mg PO TID [facility] Last Admin: 12/14/18 06:40 Dose: 100 mg Ceftriaxone Sodium/Dextrose 1 (gm/ Premix) 50 mls @ 100 mls/hr IV Q24H JOYCE Pantoprazole Sodium 40 mg/ (Sodium Chloride) 10 mls @ 300 mls/hr IV Q48H [facility] Last Admin: 12/13/18 22:06 Dose: 300 mls/hr Magnesium Sulfate 4 gm/ Premix 100 mls @ 25 mls/hr IV ONETIME ONE Stop: 12/14/18 11:14 Insulin Aspart (Novolog) 0 unit SUBCUT TIDAC [facility]; Protocol Last Admin: 12/14/18 07:34 Dose: 2 unit Insulin Aspart (Novolog) 0 unit SUBCUT BIDAC [facility]; Protocol Last Admin: 12/13/18 22:55 Dose: 4 unit Insulin Detemir (Levemir) 30 unit SUBCUT DAILY [facility] Levothyroxine Sodium (Levothyroxine) 25 mcg PO ACBREAKFAST [facility] Last Admin: 12/14/18 06:41 Dose: Not Given Non-Formulary Medication (Nadolol [Corgard]) 20 mg PO DAILY [facility] Non-Formulary Medication (Oxcarbazepine) 150 mg PO BID [facility] Last Admin: 12/13/18 22:42 Dose: Not Given Ondansetron HCl (Zofran) 4 mg IVPUSH Q4H PRN PRN Reason: Nausea/Vomiting Potassium Chloride (Klor-Con M20) 20 meq PO ONETIME ONE Stop: 12/14/18 12:01 Senna/Docusate Sodium (Senna Plus) 1 tab PO BID PRN PRN Reason: Constipation Sodium Chloride (Saline Flush) 10 ml FLUSH ASDIRECTED PRN PRN Reason: Keep Vein Open Last Admin: 12/13/18 17:55 Dose: 10 ml Sodium Chloride (Saline Flush) 2.5 ml FLUSH ASDIRECTED PRN PRN Reason: Keep Vein Open Last Admin: 12/13/18 17:55 Dose: 2.5 ml Discontinued Medications Acetaminophen (Tylenol Extra Strength) 1,000 mg PO ONETIME ONE Stop: 12/13/18 17:51 Last Admin: 12/13/18 17:55 Dose: 1,000 mg Acetaminophen (Tylenol Extra Strength) Confirm Administered Dose 1,000 mg .ROUTE .STK-MED ONE Stop: 12/13/18 17:52 Last Admin: 12/13/18 18:09 Dose: Not Given Sodium Chloride (Normal Saline) 1,000 mls @ 999 mls/hr IV STAT ONE Stop: 12/13/18 17:49 Last Admin: 12/13/18 17:10 Dose: 999 mls/hr Ceftriaxone Sodium/Dextrose 1 (gm/ Premix) 50 mls @ 100 mls/hr IV ONETIME ONE Stop: 12/13/18 17:58 Last Admin: 12/13/18 17:55 Dose: 100 mls/hr Sodium Chloride (Normal Saline) 1,000 mls @ 150 mls/hr IV ASDIRECTED JOYCE Potassium Chloride (Potassium Chloride) 40 meq PO ONETIME ONE Stop: 12/13/18 17:53 Last Admin: 12/13/18 18:06 Dose: 40 meq Potassium Chloride (Klor-Con M20) 40 meq PO ONETIME ONE Stop: 12/13/18 19:29 Last Admin: 12/13/18 21:20 Dose: 40 meq Potassium Chloride (Klor-Con M20) 40 meq PO ONETIME ONE Stop: 12/14/18 07:31 - Exam General: Alert, Oriented, Cooperative Lungs: Clear to Auscultation, Normal Respiratory Effort Cardiovascular: Regular Rate, Regular Rhythm GI/Abdominal Exam: Normal Bowel Sounds, Soft, Non-Tender. No: Guarding, Rigid, Rebound Extremities: Pedal Edema Skin: Warm, Dry, Intact Wound/Incisions: Healing Well Neurological: No New Focal Deficit Psy/Mental Status: Alert, Normal Affect, Normal Mood - Problem List Review Problem List Initiated/Reviewed/Updated: Yes - My Orders Last 24 Hours: My Active Orders 12/13/18 19:28 Accu Check [Blood Glucose Check, Bedside] [RC] TIDMEALS Intake and Output Strict [RC] Q12H Vital Signs [RC] PER UNIT ROUTINE Acetaminophen [Tylenol] 650 mg PO Q4H PRN Ondansetron [Zofran] 4 mg IVPUSH Q4H PRN Sequential Compression Device [OM.PC] Stat Resuscitation Status Stat 12/13/18 19:29 Antiembolic Devices [RC] Q12H 12/13/18 19:30 Pantoprazole [ProTONIX IV] 40 mg Sodium Chloride 0.9% [Normal Saline] 10 ml IV Q48H 12/13/18 21:00 OXcarbazepine 150 mg PO BID 12/13/18 22:00 Gabapentin [Neurontin] 100 mg PO TID 12/14/18 07:15 Magnesium Sulfate/Water [Magnesium Sulfate in Water Premix] 4 gm Premix Bag 1 bag IV ONETIME 12/14/18 07:30 Insulin Aspart [NovoLOG] See Protocol SUBCUT TIDAC Levothyroxine 25 mcg PO ACBREAKFAST 12/14/18 07:32 Docusate Sodium/Sennosides [Senna Plus] 1 tab PO BID PRN 12/14/18 09:00 Insulin Detemir [Levemir] 30 unit SUBCUT DAILY Nadolol [Corgard] 20 mg PO DAILY buPROPion [Wellbutrin XL] 300 mg PO DAILY 12/14/18 12:00 Potassium Chloride [Klor-Con M20] 20 meq PO ONETIME ONE 12/14/18 19:30 cefTRIAXone [Rocephin in Dextrose,Iso-Osm 1 GM/50 ML] 1 gm Premix Bag 1 bag IV Q24H 12/14/18 Breakfast [employer] Diet [DIET] - Plan Plan:: 1.Sepsis secondary to pyelonephritis- hx of ESBL Ecoli- no white count, lactate resolved, still spiking fever. Due to hx of ESBL will switch from Rocephin to Meropenam, urine/blood culture pending. 2. Anemia s/p transfusion of 2 units of PRBC- recent hematemesis and black stool but since resolved and hx of gastric ulcers-Hemoglobin improved from 6.6 to 8.2 after 2 units of blood. Baseline Hemoglobin is 8-10. IV protonix. 3. Thrombocytopenia- likely related to liver disease- stable, continue to monitor 4. Hyponatremia- improved 5. Hypokalemia- improved- give another 40 mEq x 2, recheck in AM 6. Hypomagnesemia- give 4 g IV, recheck in AM 7. DMII- accucheck and home insulin- Levemir 30 plus sliding scale 8. Portal HTN- hold IVF, continue home furosemide.
[2018-12-14] MEDS: Insulin Detemir 100 Units/ML 3 ML Pen SUBCUT SCH (08:09)
[2018-12-14] MEDS ORDERED: Non-Formulary Medication 1 Each (Nadolol [Corgard] 20 MG) PO SCH (09:00)
[2018-12-14] MEDS: OXCARBAZEPINE 150 MG PO SCH (09:41)
[2018-12-14] MEDS ORDERED: OXcarbazepine 300 MG Tab PO SCH (10:24)
[2018-12-14] MEDS: Meropenem Premix 1 GM in Premix Bag 1 BAG IV SCH ×2 (10:56→17:40)
[2018-12-14] MEDS: OXcarbazepine 300 MG Tab PO SCH ×2 (11:52→22:58)
[2018-12-14] MEDS: Diphenhydramine/Lidocaine/Nystatin Suspension 237 ML Bottle PO PRN (17:44)
[2018-12-14] MEDS ORDERED: cefTRIAXone 1 GM in Premix Bag 1 BAG IV SCH (19:30)
[2018-12-15] MEDS: Acetaminophen 325 MG Tab PO PRN ×2 (00:51→11:28)
[2018-12-15] MEDS: Meropenem Premix 1 GM in Premix Bag 1 BAG IV SCH ×3 (02:52→17:53)
[2018-12-15] MEDS: Gabapentin 100 MG Cap PO SCH ×3 (06:25→21:05)
[2018-12-15 07:20] LABS: BLOOD UREA NITROGEN,BUN 11 mg/dL (7.0-18.0); CARBON DIOXIDE,CO2 25.1 mmol/L (21.0-32.0); CHLORIDE,CL 101 mmol/L (98-107); GLUCOSE RANDOM 230 mg/dL (74-106); POTASSIUM,K 3.6 mmol/L (3.5-5.1); SODIUM,NA 132 mmol/L (136-145)
[2018-12-15] MEDS: Insulin Aspart 100 Units/ML 3 ML Pen SUBCUT SCH ×3 (07:31→17:53)
--- NOTE | 2018-12-15 09:12 | PCM.PN ---
- General Info Date of Service: 12/15/18 Subjective Update: Patient reports improvement, overall feels better and no longer having back pain , but is still spiking fever. Denies chest pain, shortness of breath, or abdominal pain. Eating and drinking normally. - Review of Systems General: Reports: Fever HEENT: Reports: No Symptoms Pulmonary: Reports: No Symptoms Cardiovascular: Reports: No Symptoms Gastrointestinal: Reports: No Symptoms Genitourinary: Reports: No Symptoms Musculoskeletal: Reports: No Symptoms Skin: Reports: No Symptoms Neurological: Reports: No Symptoms Psychiatric: Reports: No Symptoms - Patient Data Vitals - Most Recent: Last Vital Signs Temp 99.7 F 12/15/18 07:45 Pulse 94 12/15/18 04:00 Resp 15 12/15/18 07:45 BP 108/69 12/15/18 07:45 Pulse Ox 93 L 12/15/18 07:45 Weight - Most Recent: 95.028 kg I&O - Last 24 Hours: Intake & Output 12/14/18 12/15/18 12/15/18 22:59 06:59 14:59 Intake Total 1070 1400 Output Total 750 425 Balance 320 975 Lab Results Last 24 Hours: Laboratory Results - last 24 hr 12/14/18 12/14/18 12/14/18 Range/Units 08:16 11:38 16:43 WBC (4.0-11.0) K/uL RBC (4.30-5.90) M/uL Hgb (12.0-16.0) g/dL Hct (36.0-46.0) % MCV (80.0-98.0) fL MCH (27.0-32.0) pg MCHC (31.0-37.0) g/dL RDW Std Deviation (28.0-62.0) fl RDW Coeff of Jovan (11.0-15.0) % Plt Count (150-400) K/uL Neut % (Auto) (48.0-80.0) % Lymph % (Auto) (16.0-40.0) % [place] % (Auto) (0.0-15.0) % Eos % (Auto) (0.0-7.0) % Baso % (Auto) (0.0-1.5) % Neut # (Auto) (1.4-5.7) K/uL Lymph # (Auto) (0.6-2.4) K/uL [place] # (Auto) (0.0-0.8) K/uL Eos # (Auto) (0.0-0.7) K/uL Baso # (Auto) (0.0-0.1) K/uL Nucleated RBC % /100WBC Nucleated RBCs # K/uL Sodium (136-145) mmol/L Potassium (3.5-5.1) mmol/L Chloride (98-107) mmol/L Carbon Dioxide (21.0-32.0) mmol/L BUN (7.0-18.0) mg/dL Creatinine (0.6-1.0) mg/dL Est Cr Clr Drug Dosing mL/min Estimated GFR (MDRD) ml/min Glucose (74-106) mg/dL POC Glucose 220 H 193 H (60-110) mg/dL Calcium (8.5-10.1) mg/dL Magnesium (1.8-2.4) mg/dL Total Bilirubin (0.2-1.0) mg/dL AST (15-37) IU/L ALT (14-63) IU/L Alkaline Phosphatase (46-116) U/L Total Protein (6.4-8.2) g/dL Albumin (3.4-5.0) g/dL Globulin (2.6-4.0) g/dL Albumin/Globulin Ratio (0.9-1.6) Tx Rx Implicated Unit 1 [id number] Unit 1 Component RBC Pre-Trans Vis Hemolysis NEGATIVE Pre-Trans Icterus NEGATIVE Post-Trans Blood Type O POSITIVE Post-Tx Visible Hemolys NEGATIVE Post-Trans Icterus NEGATIVE Post-Trans BRADLEY Poly NEGATIVE Reaction Interpretation NON-HEM TRANSF RX 12/15/18 12/15/18 12/15/18 Range/Units 05:21 06:28 06:28 WBC 6.76 (4.0-11.0) K/uL RBC 3.37 L (4.30-5.90) M/uL Hgb 8.3 L (12.0-16.0) g/dL Hct 26.0 L (36.0-46.0) % MCV 77.2 L (80.0-98.0) fL MCH 24.6 L (27.0-32.0) pg MCHC 31.9 (31.0-37.0) g/dL RDW Std Deviation 64.0 H (28.0-62.0) fl RDW Coeff of Jovan 23 H (11.0-15.0) % Plt Count 65 L (150-400) K/uL Neut % (Auto) 68.0 (48.0-80.0) % Lymph % (Auto) 16.4 (16.0-40.0) % [place] % (Auto) 14.9 (0.0-15.0) % Eos % (Auto) 0.6 (0.0-7.0) % Baso % (Auto) 0.1 (0.0-1.5) % Neut # (Auto) 4.6 (1.4-5.7) K/uL Lymph # (Auto) 1.1 (0.6-2.4) K/uL [place] # (Auto) 1.0 H (0.0-0.8) K/uL Eos # (Auto) 0.0 (0.0-0.7) K/uL Baso # (Auto) 0.0 (0.0-0.1) K/uL Nucleated RBC % 0.0 /100WBC Nucleated RBCs # 0 K/uL Sodium 132 L (136-145) mmol/L Potassium 3.6 (3.5-5.1) mmol/L Chloride 101 (98-107) mmol/L Carbon Dioxide 25.1 (21.0-32.0) mmol/L BUN 11 (7.0-18.0) mg/dL Creatinine 1.0 (0.6-1.0) mg/dL Est Cr Clr Drug Dosing 71.27 mL/min Estimated GFR (MDRD) > 60.0 ml/min Glucose 230 H (74-106) mg/dL POC Glucose (60-110) mg/dL Calcium 6.7 L (8.5-10.1) mg/dL Magnesium 2.1 (1.8-2.4) mg/dL Total Bilirubin 1.9 H (0.2-1.0) mg/dL AST 60 H (15-37) IU/L ALT 39 (14-63) IU/L Alkaline Phosphatase 183 H (46-116) U/L Total Protein 5.7 L (6.4-8.2) g/dL Albumin 1.6 L (3.4-5.0) g/dL Globulin 4.1 H (2.6-4.0) g/dL Albumin/Globulin Ratio 0.4 L (0.9-1.6) Tx Rx Implicated Unit 1 Unit 1 Component Pre-Trans Vis Hemolysis Pre-Trans Icterus Post-Trans Blood Type Post-Tx Visible Hemolys Post-Trans Icterus Post-Trans BRADLEY Poly Reaction Interpretation 12/15/18 Range/Units 06:45 WBC (4.0-11.0) K/uL RBC (4.30-5.90) M/uL Hgb (12.0-16.0) g/dL Hct (36.0-46.0) % MCV (80.0-98.0) fL MCH (27.0-32.0) pg MCHC (31.0-37.0) g/dL RDW Std Deviation (28.0-62.0) fl RDW Coeff of Jovan (11.0-15.0) % Plt Count (150-400) K/uL Neut % (Auto) (48.0-80.0) % Lymph % (Auto) (16.0-40.0) % [place] % (Auto) (0.0-15.0) % Eos % (Auto) (0.0-7.0) % Baso % (Auto) (0.0-1.5) % Neut # (Auto) (1.4-5.7) K/uL Lymph # (Auto) (0.6-2.4) K/uL [place] # (Auto) (0.0-0.8) K/uL Eos # (Auto) (0.0-0.7) K/uL Baso # (Auto) (0.0-0.1) K/uL Nucleated RBC % /100WBC Nucleated RBCs # K/uL Sodium (136-145) mmol/L Potassium (3.5-5.1) mmol/L Chloride (98-107) mmol/L Carbon Dioxide (21.0-32.0) mmol/L BUN (7.0-18.0) mg/dL Creatinine (0.6-1.0) mg/dL Est Cr Clr Drug Dosing mL/min Estimated GFR (MDRD) ml/min Glucose (74-106) mg/dL POC Glucose 214 H (60-110) mg/dL Calcium (8.5-10.1) mg/dL Magnesium (1.8-2.4) mg/dL Total Bilirubin (0.2-1.0) mg/dL AST (15-37) IU/L ALT (14-63) IU/L Alkaline Phosphatase (46-116) U/L Total Protein (6.4-8.2) g/dL Albumin (3.4-5.0) g/dL Globulin (2.6-4.0) g/dL Albumin/Globulin Ratio (0.9-1.6) Tx Rx Implicated Unit 1 Unit 1 Component Pre-Trans Vis Hemolysis Pre-Trans Icterus Post-Trans Blood Type Post-Tx Visible Hemolys Post-Trans Icterus Post-Trans BRADLEY Poly Reaction Interpretation Jason Results Last 24 Hours: Microbiology 12/13/18 18:04 Aerobic Blood Culture - Preliminary Blood - Venous - Lab Draw NO GROWTH AFTER 1 DAY Anaerobic Blood Culture - Preliminary NO GROWTH AFTER 1 DAY 12/13/18 17:53 Aerobic Blood Culture - Preliminary Blood - Venous NO GROWTH AFTER 1 DAY Anaerobic Blood Culture - Final Med Orders - Current: Current Medications Acetaminophen (Tylenol) 650 mg PO Q4H PRN PRN Reason: Pain/Fever Last Admin: 12/15/18 00:51 Dose: 650 mg Bupropion HCl (Wellbutrin Xl) 300 mg PO DAILY [facility] Last Admin: 12/14/18 08:01 Dose: 300 mg Furosemide (Lasix) 20 mg PO BIDDIURETIC [facility] Last Admin: 12/14/18 13:53 Dose: 20 mg Gabapentin (Neurontin) 100 mg PO TID [facility] Last Admin: 12/15/18 06:25 Dose: 100 mg Pantoprazole Sodium 40 mg/ (Sodium Chloride) 10 mls @ 300 mls/hr IV Q48H [facility] Last Admin: 12/13/18 22:06 Dose: 300 mls/hr Meropenem/Sodium Chloride 1 gm (/ Premix) 50 mls @ 100 mls/hr IV Q8H [facility] Last Admin: 12/15/18 02:52 Dose: 100 mls/hr Insulin Aspart (Novolog) 0 unit SUBCUT TIDAC [facility]; Protocol Last Admin: 12/15/18 07:31 Dose: 4 unit Insulin Detemir (Levemir) 30 unit SUBCUT DAILY [facility] Last Admin: 12/14/18 08:09 Dose: 30 units Nadolol (Naldol) 20 mg PO DAILY [facility] Last Admin: 12/14/18 11:52 Dose: 20 mg Ondansetron HCl (Zofran) 4 mg IVPUSH Q4H PRN PRN Reason: Nausea/Vomiting Oxcarbazepine (Trileptal) 150 mg PO BID [facility] Last Admin: 12/14/18 22:58 Dose: 150 mg Diphenhydramine/Lidocaine/Nystatin Suspension 237 Ml Bottle 1 each PO QID PRN PRN Reason: Sore Throat Last Admin: 12/14/18 17:44 Dose: 1 each Senna/Docusate Sodium (Senna Plus) 1 tab PO BID PRN PRN Reason: Constipation Last Admin: 12/14/18 11:12 Dose: 1 tab Sodium Chloride (Saline Flush) 10 ml FLUSH ASDIRECTED PRN PRN Reason: Keep Vein Open Last Admin: 12/13/18 17:55 Dose: 10 ml Sodium Chloride (Saline Flush) 2.5 ml FLUSH ASDIRECTED PRN PRN Reason: Keep Vein Open Last Admin: 12/13/18 17:55 Dose: 2.5 ml Discontinued Medications Acetaminophen (Tylenol Extra Strength) 1,000 mg PO ONETIME ONE Stop: 12/13/18 17:51 Last Admin: 12/13/18 17:55 Dose: 1,000 mg Acetaminophen (Tylenol Extra Strength) Confirm Administered Dose 1,000 mg .ROUTE .STK-MED ONE Stop: 12/13/18 17:52 Last Admin: 12/13/18 18:09 Dose: Not Given Diphenhydramine/Nystatin/Lidocaine (Magic Mouthwash) 10 ml PO QID PRN PRN Reason: Sore Throat Sodium Chloride (Normal Saline) 1,000 mls @ 999 mls/hr IV STAT ONE Stop: 12/13/18 17:49 Last Admin: 12/13/18 17:10 Dose: 999 mls/hr Ceftriaxone Sodium/Dextrose 1 (gm/ Premix) 50 mls @ 100 mls/hr IV ONETIME ONE Stop: 12/13/18 17:58 Last Admin: 12/13/18 17:55 Dose: 100 mls/hr Ceftriaxone Sodium/Dextrose 1 (gm/ Premix) 50 mls @ 100 mls/hr IV Q24H [facility] Sodium Chloride (Normal Saline) 1,000 mls @ 150 mls/hr IV ASDIRECTED [facility] Magnesium Sulfate 4 gm/ Premix 100 mls @ 25 mls/hr IV ONETIME ONE Stop: 12/14/18 11:14 Last Admin: 12/14/18 08:01 Dose: 25 mls/hr Insulin Aspart (Novolog) 0 unit SUBCUT BIDAC [facility]; Protocol Last Admin: 12/14/18 17:24 Dose: Not Given Levothyroxine Sodium (Levothyroxine) 25 mcg PO ACBREAKFAST [facility] Last Admin: 12/14/18 06:41 Dose: Not Given Nadolol (Naldol) 20 mg PO DAILY [facility] Non-Formulary Medication (Nadolol [Corgard]) 20 mg PO DAILY [facility] Last Admin: 12/14/18 09:41 Dose: Not Given Non-Formulary Medication (Oxcarbazepine) 150 mg PO BID [facility] Last Admin: 12/14/18 09:41 Dose: Not Given Oxcarbazepine (Trileptal) 150 mg PO BID [facility] Potassium Chloride (Potassium Chloride) 40 meq PO ONETIME ONE Stop: 12/13/18 17:53 Last Admin: 12/13/18 18:06 Dose: 40 meq Potassium Chloride (Klor-Con M20) 40 meq PO ONETIME ONE Stop: 12/13/18 19:29 Last Admin: 12/13/18 21:20 Dose: 40 meq Potassium Chloride (Klor-Con M20) 40 meq PO ONETIME ONE Stop: 12/14/18 07:31 Last Admin: 12/14/18 08:00 Dose: 40 meq Potassium Chloride (Klor-Con M20) 20 meq PO ONETIME ONE Stop: 12/14/18 12:01 Last Admin: 12/14/18 11:10 Dose: 20 meq - Exam General: Alert, Oriented, Cooperative Lungs: Clear to Auscultation, Normal Respiratory Effort Cardiovascular: Regular Rate, Regular Rhythm GI/Abdominal Exam: Normal Bowel Sounds, Soft, Non-Tender. No: Guarding, Rigid Back Exam: No: CVA Tenderness (L), CVA Tenderness (R) Extremities: No Pedal Edema Skin: Warm, Dry Neurological: No New Focal Deficit Psy/Mental Status: Alert, Normal Affect, Normal Mood - Problem List Review Problem List Initiated/Reviewed/Updated: Yes - My Orders Last 24 Hours: My Active Orders 12/14/18 09:00 Insulin Detemir [Levemir] 30 unit SUBCUT DAILY buPROPion [Wellbutrin XL] 300 mg PO DAILY 12/14/18 12:00 Nadolol [Naldol] 20 mg PO DAILY OXcarbazepine [Trileptal] 150 mg PO BID 12/16/18 05:11 CBC WITH AUTO DIFF [HEME] AM COMPREHENSIVE METABOLIC PN,CMP [CHEM] AM 12/17/18 05:11 CBC WITH AUTO DIFF [HEME] AM COMPREHENSIVE METABOLIC PN,CMP [CHEM] AM - Plan Plan:: 1.Sepsis secondary to pyelonephritis- hx of ESBL Ecoli- sepsis resolved,no white count, lactate resolved, still spiking fever. Due to hx of ESBL will switch from Rocephin to Meropenam, urine/blood culture pending. Will get US today. Will need outpatient urology appt for recurrent UTIs. 2. Anemia s/p transfusion of 2 units of PRBC- recent hematemesis and black stool but since resolved and hx of gastric ulcers-Hemoglobin stable 8.2 to 8.3. Baseline Hemoglobin is 8-10. IV protonix. 3. Thrombocytopenia/ elevated LFTs- likely related to liver disease- stable, continue to monitor 4. Hypokalemia- resolved 5. Hypomagnesemia- resolved 6. DMII- accucheck and home insulin- Levemir 30 plus sliding scale 7. Portal HTN- hold IVF, continue home furosemide.
[2018-12-15] MEDS: buPROPion 150 MG Tab.ER PO SCH (09:49)
[2018-12-15] MEDS: Furosemide 20 MG Tab PO SCH ×2 (09:49→13:46)
[2018-12-15] MEDS: OXcarbazepine 300 MG Tab PO SCH ×2 (09:50→21:04)
[2018-12-15] MEDS: Insulin Detemir 100 Units/ML 3 ML Pen SUBCUT SCH (09:57)
--- NOTE | 2018-12-15 11:15 | US ---
INDICATION: Pain. Pyelonephritis. TECHNIQUE: Ultrasound renal and bladder complete. Prince-scale and color Doppler sonographic images were acquired of the kidneys and urinary bladder. COMPARISON: None FINDINGS: Right kidney: 12.1 cm. Left kidney: 11.2 cm. Normal echotexture and cortex. No masses, stones, or hydronephrosis. Bladder: Normal in caliber and appearance. Other: Moderate ascites is incidentally noted. IMPRESSION: Unremarkable sonographic appearance of the kidneys. Moderate ascites. Dictated by Alfredito Ornelas MD @ Dec 15 2018 11:09AM Signed by Dr. Alfredito Ornelas @ Dec 15 2018 11:13AM
[2018-12-15] MEDS: Diphenhydramine/Lidocaine/Nystatin Suspension 237 ML Bottle PO PRN ×2 (13:45→17:53)
[2018-12-15] MEDS: Ibuprofen 400 MG Tab PO PRN (13:46)
[2018-12-15] MEDS: Pantoprazole 40 MG in Sodium Chloride 0.9% 10 ML IV SCH (18:43)
[2018-12-16] MEDS: Meropenem Premix 1 GM in Premix Bag 1 BAG IV SCH ×3 (02:24→17:43)
[2018-12-16] MEDS: Gabapentin 100 MG Cap PO SCH ×4 (05:43→21:20)
[2018-12-16 06:56] LABS: CARBON DIOXIDE,CO2 25.5 mmol/L (21.0-32.0); POTASSIUM,K 3.5 mmol/L (3.5-5.1)
[2018-12-16] MEDS: Insulin Aspart 100 Units/ML 3 ML Pen SUBCUT SCH ×3 (07:34→17:34)
[2018-12-16] MEDS: buPROPion 150 MG Tab.ER PO SCH (08:38)
[2018-12-16] MEDS: Furosemide 20 MG Tab PO SCH ×2 (08:40→13:33)
[2018-12-16] MEDS: OXcarbazepine 300 MG Tab PO SCH ×2 (08:40→20:06)
[2018-12-16] MEDS: Insulin Detemir 100 Units/ML 3 ML Pen SUBCUT SCH (08:41)
--- NOTE | 2018-12-16 13:49 | PCM.PN ---
- General Info Date of Service: 12/16/18 Subjective Update: Patient seen at bedside: Endorsing no new complaints. States the swelling of her belly is noticeable but is not causing any pain at this time. Denies any other complaints except wanting to go home today. - Review of Systems General: Reports: Chills. Denies: Fever, Fatigue HEENT: Reports: No Symptoms Pulmonary: Reports: No Symptoms Gastrointestinal: Reports: No Symptoms. Denies: Abdominal Pain (states her belly is swollen; but no pain ), Constipation, Decreased Appetite Genitourinary: Denies: Dysuria, Frequency, Flank Pain Musculoskeletal: Reports: No Symptoms. Denies: Back Pain Neurological: Reports: No Symptoms Psychiatric: Reports: No Symptoms - Patient Data Vitals - Most Recent: Last Vital Signs Temp 100.3 F 12/16/18 13:32 Pulse 80 12/16/18 12:00 Resp 16 12/16/18 12:00 BP 102/61 12/16/18 12:00 Pulse Ox 99 12/16/18 12:00 Weight - Most Recent: 209 lb 8 oz I&O - Last 24 Hours: Intake & Output 12/15/18 12/16/18 12/16/18 22:59 06:59 14:59 Intake Total 1240 390 Output Total 400 0 Balance 840 390 Lab Results Last 24 Hours: Laboratory Results - last 24 hr 12/15/18 12/16/18 12/16/18 Range/Units 17:40 06:10 06:10 WBC 2.95 L (4.0-11.0) K/uL RBC 3.50 L (4.30-5.90) M/uL Hgb 8.3 L (12.0-16.0) g/dL Hct 27.1 L (36.0-46.0) % MCV 77.4 L (80.0-98.0) fL MCH 23.7 L (27.0-32.0) pg MCHC 30.6 L (31.0-37.0) g/dL RDW Std Deviation 64.9 H (28.0-62.0) fl RDW Coeff of Jovan 23 H (11.0-15.0) % Plt Count 56 L (150-400) K/uL Neut % (Auto) 59.7 (48.0-80.0) % Lymph % (Auto) 22.4 (16.0-40.0) % [place] % (Auto) 14.9 (0.0-15.0) % Eos % (Auto) 2.7 (0.0-7.0) % Baso % (Auto) 0.3 (0.0-1.5) % Neut # (Auto) 1.8 (1.4-5.7) K/uL Lymph # (Auto) 0.7 (0.6-2.4) K/uL [place] # (Auto) 0.4 (0.0-0.8) K/uL Eos # (Auto) 0.1 (0.0-0.7) K/uL Baso # (Auto) 0.0 (0.0-0.1) K/uL Nucleated RBC % 0.0 /100WBC Nucleated RBCs # 0 K/uL Sodium 137 (136-145) mmol/L Potassium 3.5 (3.5-5.1) mmol/L Chloride 105 (98-107) mmol/L Carbon Dioxide 25.5 (21.0-32.0) mmol/L BUN 16 (7.0-18.0) mg/dL Creatinine 1.1 H (0.6-1.0) mg/dL Est Cr Clr Drug Dosing 64.79 mL/min Estimated GFR (MDRD) 54.5 ml/min Glucose 169 H (74-106) mg/dL POC Glucose 223 H (60-110) mg/dL Calcium 6.6 L (8.5-10.1) mg/dL Total Bilirubin 1.5 H (0.2-1.0) mg/dL AST 70 H (15-37) IU/L ALT 39 (14-63) IU/L Alkaline Phosphatase 231 H (46-116) U/L Total Protein 5.5 L (6.4-8.2) g/dL Albumin 1.5 L (3.4-5.0) g/dL Globulin 4.0 (2.6-4.0) g/dL Albumin/Globulin Ratio 0.4 L (0.9-1.6) 12/16/18 12/16/18 Range/Units 06:21 12:03 WBC (4.0-11.0) K/uL RBC (4.30-5.90) M/uL Hgb (12.0-16.0) g/dL Hct (36.0-46.0) % MCV (80.0-98.0) fL MCH (27.0-32.0) pg MCHC (31.0-37.0) g/dL RDW Std Deviation (28.0-62.0) fl RDW Coeff of Jovan (11.0-15.0) % Plt Count (150-400) K/uL Neut % (Auto) (48.0-80.0) % Lymph % (Auto) (16.0-40.0) % [place] % (Auto) (0.0-15.0) % Eos % (Auto) (0.0-7.0) % Baso % (Auto) (0.0-1.5) % Neut # (Auto) (1.4-5.7) K/uL Lymph # (Auto) (0.6-2.4) K/uL [place] # (Auto) (0.0-0.8) K/uL Eos # (Auto) (0.0-0.7) K/uL Baso # (Auto) (0.0-0.1) K/uL Nucleated RBC % /100WBC Nucleated RBCs # K/uL Sodium (136-145) mmol/L Potassium (3.5-5.1) mmol/L Chloride (98-107) mmol/L Carbon Dioxide (21.0-32.0) mmol/L BUN (7.0-18.0) mg/dL Creatinine (0.6-1.0) mg/dL Est Cr Clr Drug Dosing mL/min Estimated GFR (MDRD) ml/min Glucose (74-106) mg/dL POC Glucose 151 H 278 H (60-110) mg/dL Calcium (8.5-10.1) mg/dL Total Bilirubin (0.2-1.0) mg/dL AST (15-37) IU/L ALT (14-63) IU/L Alkaline Phosphatase (46-116) U/L Total Protein (6.4-8.2) g/dL Albumin (3.4-5.0) g/dL Globulin (2.6-4.0) g/dL Albumin/Globulin Ratio (0.9-1.6) Jason Results Last 24 Hours: Microbiology 12/13/18 18:04 Aerobic Blood Culture - Preliminary Blood - Venous - Lab Draw NO GROWTH AFTER 2 DAYS Anaerobic Blood Culture - Preliminary NO GROWTH AFTER 2 DAYS 12/13/18 17:53 Aerobic Blood Culture - Preliminary Blood - Venous NO GROWTH AFTER 2 DAYS Anaerobic Blood Culture - Final 12/14/18 17:24 Aerobic Blood Culture - Preliminary Blood - Venous - Lab Draw NO GROWTH AFTER 1 DAY Anaerobic Blood Culture - Preliminary NO GROWTH AFTER 1 DAY 12/14/18 17:12 Aerobic Blood Culture - Preliminary Blood - Venous NO GROWTH AFTER 1 DAY Anaerobic Blood Culture - Preliminary NO GROWTH AFTER 1 DAY Med Orders - Current: Current Medications Acetaminophen (Tylenol) 650 mg PO Q4H PRN PRN Reason: Pain/Fever Last Admin: 12/15/18 11:28 Dose: 650 mg Bupropion HCl (Wellbutrin Xl) 300 mg PO DAILY [facility] Last Admin: 12/16/18 08:38 Dose: 300 mg Furosemide (Lasix) 20 mg PO BIDDIURETIC [facility] Last Admin: 12/16/18 13:33 Dose: 20 mg Gabapentin (Neurontin) 100 mg PO TID [facility] Last Admin: 12/16/18 13:33 Dose: 100 mg Pantoprazole Sodium 40 mg/ (Sodium Chloride) 10 mls @ 300 mls/hr IV Q48H [facility] Last Admin: 12/15/18 18:43 Dose: 300 mls/hr Meropenem/Sodium Chloride 1 gm (/ Premix) 50 mls @ 100 mls/hr IV Q8H [facility] Last Admin: 12/16/18 10:30 Dose: 100 mls/hr Ibuprofen (Motrin) 400 mg PO Q6H PRN PRN Reason: Pain/Fever Last Admin: 12/15/18 13:46 Dose: 400 mg Insulin Aspart (Novolog) 0 unit SUBCUT TIDAC [facility]; Protocol Last Admin: 12/16/18 12:29 Dose: 6 unit Insulin Detemir (Levemir) 30 unit SUBCUT DAILY [facility] Last Admin: 12/16/18 08:41 Dose: 30 units Nadolol (Naldol) 20 mg PO DAILY [facility] Last Admin: 12/16/18 08:40 Dose: 20 mg Ondansetron HCl (Zofran) 4 mg IVPUSH Q4H PRN PRN Reason: Nausea/Vomiting Oxcarbazepine (Trileptal) 150 mg PO BID [facility] Last Admin: 12/16/18 08:40 Dose: 150 mg Diphenhydramine/Lidocaine/Nystatin Suspension 237 Ml Bottle 1 each PO QID PRN PRN Reason: Sore Throat Last Admin: 12/15/18 17:53 Dose: 1 each Senna/Docusate Sodium (Senna Plus) 1 tab PO BID PRN PRN Reason: Constipation Last Admin: 12/15/18 10:02 Dose: 1 tab Sodium Chloride (Saline Flush) 10 ml FLUSH ASDIRECTED PRN PRN Reason: Keep Vein Open Last Admin: 12/13/18 17:55 Dose: 10 ml Sodium Chloride (Saline Flush) 2.5 ml FLUSH ASDIRECTED PRN PRN Reason: Keep Vein Open Last Admin: 12/13/18 17:55 Dose: 2.5 ml Discontinued Medications Acetaminophen (Tylenol Extra Strength) 1,000 mg PO ONETIME ONE Stop: 12/13/18 17:51 Last Admin: 12/13/18 17:55 Dose: 1,000 mg Acetaminophen (Tylenol Extra Strength) Confirm Administered Dose 1,000 mg .ROUTE .STK-MED ONE Stop: 12/13/18 17:52 Last Admin: 12/13/18 18:09 Dose: Not Given Diphenhydramine/Nystatin/Lidocaine (Magic Mouthwash) 10 ml PO QID PRN PRN Reason: Sore Throat Sodium Chloride (Normal Saline) 1,000 mls @ 999 mls/hr IV STAT ONE Stop: 12/13/18 17:49 Last Admin: 12/13/18 17:10 Dose: 999 mls/hr Ceftriaxone Sodium/Dextrose 1 (gm/ Premix) 50 mls @ 100 mls/hr IV ONETIME ONE Stop: 12/13/18 17:58 Last Admin: 12/13/18 17:55 Dose: 100 mls/hr Ceftriaxone Sodium/Dextrose 1 (gm/ Premix) 50 mls @ 100 mls/hr IV Q24H [facility] Sodium Chloride (Normal Saline) 1,000 mls @ 150 mls/hr IV ASDIRECTED [facility] Magnesium Sulfate 4 gm/ Premix 100 mls @ 25 mls/hr IV ONETIME ONE Stop: 12/14/18 11:14 Last Admin: 12/14/18 08:01 Dose: 25 mls/hr Insulin Aspart (Novolog) 0 unit SUBCUT BIDAC [facility]; Protocol Last Admin: 12/14/18 17:24 Dose: Not Given Levothyroxine Sodium (Levothyroxine) 25 mcg PO ACBREAKFAST [facility] Last Admin: 12/14/18 06:41 Dose: Not Given Nadolol (Naldol) 20 mg PO DAILY [facility] Non-Formulary Medication (Nadolol [Corgard]) 20 mg PO DAILY [facility] Last Admin: 12/14/18 09:41 Dose: Not Given Non-Formulary Medication (Oxcarbazepine) 150 mg PO BID [facility] Last Admin: 12/14/18 09:41 Dose: Not Given Oxcarbazepine (Trileptal) 150 mg PO BID [facility] Potassium Chloride (Potassium Chloride) 40 meq PO ONETIME ONE Stop: 12/13/18 17:53 Last Admin: 12/13/18 18:06 Dose: 40 meq Potassium Chloride (Klor-Con M20) 40 meq PO ONETIME ONE Stop: 12/13/18 19:29 Last Admin: 12/13/18 21:20 Dose: 40 meq Potassium Chloride (Klor-Con M20) 40 meq PO ONETIME ONE Stop: 12/14/18 07:31 Last Admin: 12/14/18 08:00 Dose: 40 meq Potassium Chloride (Klor-Con M20) 20 meq PO ONETIME ONE Stop: 12/14/18 12:01 Last Admin: 12/14/18 11:10 Dose: 20 meq - Exam Quality Assessment: Supplemental Oxygen General: Alert, Oriented, Cooperative HEENT: Pupils Equal, EOMI, Mucous Membr. Moist/[place] Neck: Supple Lungs: Clear to Auscultation, Normal Respiratory Effort Cardiovascular: Regular Rate, Regular Rhythm GI/Abdominal Exam: Other (distended abdomen; liver edge palpable; no fluid wave appreciated; no flank or back tenderness. ) Back Exam: Normal Inspection Skin: Warm Wound/Incisions: Healing Well Neurological: No New Focal Deficit, Normal Speech - Problem List Review Problem List Initiated/Reviewed/Updated: Yes - Plan Plan:: 1.Sepsis secondary to pyelonephritis- hx of ESBL Ecoli- hx of ESBL currently on Meropenam:continue until cultures return w/ sensitivities; labs requires one more day for results. Leukopenia: pt. clinically stable. Will continue to monitor. Will need outpatient urology appt for recurrent UTIs. 2. Anemia s/p transfusion of 2 units of PRBC- recent hematemesis and black stool but since resolved and hx of gastric ulcers-Hemoglobin stable at 8.3. Baseline Hemoglobin is 8-10. IV protonix. 3. Thrombocytopenia/ elevated LFTs- likely related to liver disease- stable, continue to monitor 4. Hypokalemia- resolved 5. Hypomagnesemia- resolved 6. DMII- accucheck and home insulin- Levemir 30 plus sliding scale 7. Portal HTN- hold IVF, continue home furosemide.
[2018-12-16] MEDS: Ibuprofen 400 MG Tab PO PRN (17:43)
[2018-12-17] MEDS: Meropenem Premix 1 GM in Premix Bag 1 BAG IV SCH ×2 (02:34→11:19)
[2018-12-17] MEDS: Gabapentin 100 MG Cap PO SCH (05:59)
[2018-12-17 06:37] LABS: BLOOD UREA NITROGEN,BUN 15 mg/dL (7.0-18.0); CARBON DIOXIDE,CO2 27.1 mmol/L (21.0-32.0); CHLORIDE,CL 104 mmol/L (98-107); GLUCOSE RANDOM 224 mg/dL (74-106); POTASSIUM,K 3.9 mmol/L (3.5-5.1); SODIUM,NA 136 mmol/L (136-145)
[2018-12-17] MEDS: Insulin Aspart 100 Units/ML 3 ML Pen SUBCUT SCH (07:27)
[2018-12-17 07:44] VITALS: BP 107/73; PULSE 81
[2018-12-17] MEDS: Furosemide 20 MG Tab PO SCH (08:49)
[2018-12-17] MEDS: buPROPion 150 MG Tab.ER PO SCH (08:49)
[2018-12-17] MEDS: OXcarbazepine 300 MG Tab PO SCH (08:50)
[2018-12-17] MEDS: Insulin Detemir 100 Units/ML 3 ML Pen SUBCUT SCH (08:58)
--- NOTE | 2018-12-17 10:04 | PCM.DCSUM1 ---
<Fifi Castaneda - Last Filed: 12/17/18 12:59> Discharge Summary - Hospital Course HPI Initial Comments: Admission Date: 12/13/18 Discharge Date: 12/17/18 Admission Diagnosis: 1. Sepsis secondary to pyelonephritis 2. Anemia 3. Thrombocytopenia 4. Hyponatremia 5. Hypokalemia 6. Hypomagnesemia 7. DMII Discharge Diagnosis: 1. Sepsis secondary to pyelonephritis- Ecoli- resolved 2. Anemia s/p transfusion of 2 units PRBC- stable 3. Thrombocytopenia/ elevated LFTs secondary to liver cirrhosis- stable 4. Hyponatremia-resolved 5. Hypokalemia-resolved 6. Hypomagnesemia-resolved 7. DMII 8. Portal HTN Procedures: None Consults: None Hospital Course: The patient is a 43 year old female who presents today for fever, back pain, increase urinary urgency x 3 days. Reports blood in urine at first but it has since resolved. Reports history of UTIs, denies hx of kidney stones. One week ago she was seen in the ER for hematemesis, at that time she had a platelet count of 7, offered transfer declined and left AMA. Reports she was having black stools as well. No longer have hematemesis or black/bloody stools, last stool was roxanna color. Hx of GI bleed, scoped in [place] 4-5 months ago, which would show gastric ulcer, reports negative colonoscopy. Reports history of hepatitis C which has been treated, has been scheduled for liver biopsy but hasn't been done because of low platelets. Also reports history of esophageal varices and portal HTN. Has been taking medications as prescribed. In the ER, found to be anemic with hemoglobin of 6.6, thrombocytopenic, INR wnl, elevated lactate of 2.3, hyponatremic with Na of 129 , hypokalemic with K of 3, kidney function wnl, bili and AST elevated but at baseline for her. UA positive for infection and blood. IN the ER she was given Tylenol for fever, dose of Rocephin, 40 mEq of potassium ,and 1 L of fluid. For her sepsis secondary to pyelonephritis she was started no rocepin. After review of previous urine cultures and sensitivities that showed ESBL she was switched over to meropenem. US showed normal kidneys, ureters, and bladder but did note moderate ascites. She reports 3-4 UTIs every year for the past at least 5 years, no history of work up. Her urine culture grew out Ecoli which was hinds sensitive. For her anemia, she was transfused 2 units of PRBC, her hemoglobin improved from 6.6 to 8.2 and was stable over the course of the admission. Discharge hemoglobin was 8.5 without episodes of hematemesis or black/bloody stools. Her LFTs and platelets were monitored throughout her stay and were stable. She was continued on her home insulin dose with sliding scale for her DMII. By day of discharge, she was afebrile with symptom improvement, and requesting discharge. Disposition: Home Discharge Condition: vitals stable, tolerating oral diet, ambulating without difficulty, symptom improvement Discharge Instructions: diabetic diet as tolerated, activity as tolerated, take medications as prescribed. Symptoms to report to physician include fever/chills , chest pain, shortness of breath, abdominal pain, erythema, drainage/discharge , or not improving as expected. Discharge Medications: traZODone 50 mg PO BEDTIME PRN Furosemide 20 mg PO BID PRN Gabapentin [Neurontin] 300 mg PO TID Lactulose 10 ml PO Q4H PRN OXcarbazepine [Oxcarbazepine] 150 mg PO BID buPROPion HCl [Wellbutrin Xl] 300 mg PO DAILY Levothyroxine Sodium [Synthroid] 75 mcg PO ACBREAKFAST Nadolol [Corgard] 20 mg PO DAILY Pantoprazole [ProTONIX] 40 mg PO ACBREAKFAST Diphenhyd/Lidocaine/Nystatin [Magic Mouthwash] 1 - 2 tsp PO Q4HR PRN DULoxetine [Cymbalta] 20 mg PO DAILY Insulin Aspart [NovoLOG] 10 unit SUBCUT TIDAC Insulin Detemir [Levemir] 30 unit SUBCUT DAILY Levofloxacin [Levaquin] 750 mg PO DAILY 10 Days #10 tablet 12/17/18 [Rx] Follow-up: 1. PCP- Naima Gardiner 2. Urology - Discharge Data Discharge Date: 12/17/18 Discharge Disposition: Home, Self-Care 01 Condition: Stable - Referral to Home Health Primary Care Physician: Philly Keith MD - Patient Instructions Diet: Diabetic Diet Activity: As Tolerated Driving: May Drive Today Showering/Bathing: May Shower Notify Provider of: Fever, Increased Pain, Swelling and Redness, Drainage, Nausea and/or Vomiting Other/Special Instructions: Additional symptoms include chest pain, shortness of breath, or abominal pain. - Discharge Plan *PRESCRIPTION DRUG MONITORING PROGRAM REVIEWED*: No *COPY OF PRESCRIPTION DRUG MONITORING REPORT IN PATIENT XENA: No Prescriptions/Med Rec: Levofloxacin [Levaquin] 750 mg PO DAILY 10 Days #10 tablet Home Medications: Home Meds traZODone 50 mg PO BEDTIME PRN 04/22/17 [History] Furosemide 20 mg PO BID PRN 09/09/17 [History] Gabapentin [Neurontin] 300 mg PO TID 09/09/17 [History] Lactulose 10 ml PO Q4H PRN 09/09/17 [History] OXcarbazepine [Oxcarbazepine] 150 mg PO BID 09/09/17 [History] buPROPion HCl [Wellbutrin Xl] 300 mg PO DAILY 09/09/17 [History] Levothyroxine Sodium [Synthroid] 75 mcg PO ACBREAKFAST 10/01/17 [History] Nadolol [Corgard] 20 mg PO DAILY 10/01/17 [History] Pantoprazole [ProTONIX] 40 mg PO ACBREAKFAST 10/01/17 [History] Diphenhyd/Lidocaine/Nystatin [Magic Mouthwash] 1 - 2 tsp PO Q4HR PRN 12/13/18 [ History] DULoxetine [Cymbalta] 20 mg PO DAILY 12/14/18 [History] Insulin Aspart [NovoLOG] 10 unit SUBCUT TIDAC 12/14/18 [History] Insulin Detemir [Levemir] 30 unit SUBCUT DAILY 12/14/18 [History] Nicotine [Nicotine Patch] 21 mg TD DAILY 12/14/18 [History] Levofloxacin [Levaquin] 750 mg PO DAILY 10 Days #10 tablet 12/17/18 [Rx] Patient Handouts: Pyelonephritis, Adult, [id number], Levofloxacin tablets Referrals: [facility] [Ordering Only Provider] - Naima Choi NP [Nurse Practitioner] - 01/01/19 7:30 am Saige Elliott MD [Physician] - (The appointment was not able to be made, due to the nurses being out today. They will be back on Tuesday, and at this time will be able to schedule you. They should call you, but if you do not hear from them feel free to call them. ) - Discharge Summary/Plan Comment DC Time >30 min.: No - Patient Data Vitals - Most Recent: Last Vital Signs Temp 96.9 F 12/17/18 07:43 Pulse 81 12/17/18 08:50 Resp 18 12/17/18 07:43 BP 107/73 12/17/18 08:50 Pulse Ox 96 12/17/18 07:43 Weight - Most Recent: 95.028 kg I&O - Last 24 hours: Intake & Output 12/16/18 12/17/18 12/17/18 22:59 06:59 14:59 Intake Total 1510 950 Output Total 800 550 Balance 710 400 Lab Results - Last 24 hrs: Laboratory Results - last 24 hr 12/16/18 12/16/18 12/17/18 Range/Units 12:03 17:33 06:00 WBC 3.29 L (4.0-11.0) K/uL RBC 3.50 L (4.30-5.90) M/uL Hgb 8.5 L (12.0-16.0) g/dL Hct 27.0 L (36.0-46.0) % MCV 77.1 L (80.0-98.0) fL MCH 24.3 L (27.0-32.0) pg MCHC 31.5 (31.0-37.0) g/dL RDW Std Deviation 65.4 H (28.0-62.0) fl RDW Coeff of Jovan 23 H (11.0-15.0) % Plt Count 54 L (150-400) K/uL Add Manual Diff YES Neutrophils % (Manual) 42 L (48.0-80.0) % Lymphocytes % (Manual) 47 H (16.0-40.0) % Monocytes % (Manual) 7 (0.0-15.0) % Eosinophils % (Manual) 3 (0.0-7.0) % Basophils % (Manual) 1 (0.0-1.5) % Nucleated RBC % 0.0 /100WBC Absolute Seg Neuts 1.4 (1.4-5.7) Lymphocytes # (Manual) 1.5 (0.6-2.4) Monocytes # (Manual) 0.2 (0.0-0.8) Eosinophils # (Manual) 0.1 (0.0-0.7) Basophils # (Manual) 0.0 (0.0-0.1) Nucleated RBCs # 0 K/uL Sodium (136-145) mmol/L Potassium (3.5-5.1) mmol/L Chloride (98-107) mmol/L Carbon Dioxide (21.0-32.0) mmol/L BUN (7.0-18.0) mg/dL Creatinine (0.6-1.0) mg/dL Est Cr Clr Drug Dosing mL/min Estimated GFR (MDRD) ml/min Glucose (74-106) mg/dL POC Glucose 278 H 83 (60-110) mg/dL Calcium (8.5-10.1) mg/dL Total Bilirubin (0.2-1.0) mg/dL AST (15-37) IU/L ALT (14-63) IU/L Alkaline Phosphatase (46-116) U/L Total Protein (6.4-8.2) g/dL Albumin (3.4-5.0) g/dL Globulin (2.6-4.0) g/dL Albumin/Globulin Ratio (0.9-1.6) 12/17/18 12/17/18 Range/Units 06:00 06:13 WBC (4.0-11.0) K/uL RBC (4.30-5.90) M/uL Hgb (12.0-16.0) g/dL Hct (36.0-46.0) % MCV (80.0-98.0) fL MCH (27.0-32.0) pg MCHC (31.0-37.0) g/dL RDW Std Deviation (28.0-62.0) fl RDW Coeff of Jovan (11.0-15.0) % Plt Count (150-400) K/uL Add Manual Diff Neutrophils % (Manual) (48.0-80.0) % Lymphocytes % (Manual) (16.0-40.0) % Monocytes % (Manual) (0.0-15.0) % Eosinophils % (Manual) (0.0-7.0) % Basophils % (Manual) (0.0-1.5) % Nucleated RBC % /100WBC Absolute Seg Neuts (1.4-5.7) Lymphocytes # (Manual) (0.6-2.4) Monocytes # (Manual) (0.0-0.8) Eosinophils # (Manual) (0.0-0.7) Basophils # (Manual) (0.0-0.1) Nucleated RBCs # K/uL Sodium 136 (136-145) mmol/L Potassium 3.9 (3.5-5.1) mmol/L Chloride 104 (98-107) mmol/L Carbon Dioxide 27.1 (21.0-32.0) mmol/L BUN 15 (7.0-18.0) mg/dL Creatinine 1.0 (0.6-1.0) mg/dL Est Cr Clr Drug Dosing 71.27 mL/min Estimated GFR (MDRD) > 60.0 ml/min Glucose 224 H (74-106) mg/dL POC Glucose 213 H (60-110) mg/dL Calcium 6.7 L (8.5-10.1) mg/dL Total Bilirubin 1.5 H (0.2-1.0) mg/dL AST 83 H (15-37) IU/L ALT 42 (14-63) IU/L Alkaline Phosphatase 229 H (46-116) U/L Total Protein 5.8 L (6.4-8.2) g/dL Albumin 1.5 L (3.4-5.0) g/dL Globulin 4.3 H (2.6-4.0) g/dL Albumin/Globulin Ratio 0.4 L (0.9-1.6) RICKIE Results - Last 24 hrs: Microbiology 12/13/18 17:14 Urine Culture - Final Urine, Clean Catch Escherichia Coli. 12/13/18 18:04 Aerobic Blood Culture - Preliminary Blood - Venous - Lab Draw NO GROWTH AFTER 3 DAYS Anaerobic Blood Culture - Preliminary NO GROWTH AFTER 3 DAYS 12/13/18 17:53 Aerobic Blood Culture - Preliminary Blood - Venous NO GROWTH AFTER 3 DAYS Anaerobic Blood Culture - Final 12/14/18 17:24 Aerobic Blood Culture - Preliminary Blood - Venous - Lab Draw NO GROWTH AFTER 2 DAYS Anaerobic Blood Culture - Preliminary NO GROWTH AFTER 2 DAYS 12/14/18 17:12 Aerobic Blood Culture - Preliminary Blood - Venous NO GROWTH AFTER 2 DAYS Anaerobic Blood Culture - Preliminary NO GROWTH AFTER 2 DAYS Med Orders - Current: Current Medications Acetaminophen (Tylenol) 650 mg PO Q4H PRN PRN Reason: Pain/Fever Last Admin: 12/15/18 11:28 Dose: 650 mg Bupropion HCl (Wellbutrin Xl) 300 mg PO DAILY [facility] Last Admin: 12/17/18 08:49 Dose: 300 mg Furosemide (Lasix) 20 mg PO BIDDIURETIC [facility] Last Admin: 12/17/18 08:49 Dose: 20 mg Gabapentin (Neurontin) 300 mg PO TID [facility] Last Admin: 12/17/18 05:59 Dose: 300 mg Pantoprazole Sodium 40 mg/ (Sodium Chloride) 10 mls @ 300 mls/hr IV Q48H [facility] Last Admin: 12/15/18 18:43 Dose: 300 mls/hr Meropenem/Sodium Chloride 1 gm (/ Premix) 50 mls @ 100 mls/hr IV Q8H [facility] Last Admin: 12/17/18 02:34 Dose: 100 mls/hr Ibuprofen (Motrin) 400 mg PO Q6H PRN PRN Reason: Pain/Fever Last Admin: 12/16/18 17:43 Dose: 400 mg Insulin Aspart (Novolog) 0 unit SUBCUT TIDAC [facility]; Protocol Last Admin: 12/17/18 07:27 Dose: 4 unit Insulin Detemir (Levemir) 30 unit SUBCUT DAILY [facility] Last Admin: 12/17/18 08:58 Dose: 30 units Nadolol (Naldol) 20 mg PO DAILY [facility] Last Admin: 12/17/18 08:50 Dose: 20 mg Ondansetron HCl (Zofran) 4 mg IVPUSH Q4H PRN PRN Reason: Nausea/Vomiting Oxcarbazepine (Trileptal) 150 mg PO BID [facility] Last Admin: 12/17/18 08:50 Dose: 150 mg Diphenhydramine/Lidocaine/Nystatin Suspension 237 Ml Bottle 1 each PO QID PRN PRN Reason: Sore Throat Last Admin: 12/15/18 17:53 Dose: 1 each Senna/Docusate Sodium (Senna Plus) 1 tab PO BID PRN PRN Reason: Constipation Last Admin: 12/15/18 10:02 Dose: 1 tab Sodium Chloride (Saline Flush) 10 ml FLUSH ASDIRECTED PRN PRN Reason: Keep Vein Open Last Admin: 12/13/18 17:55 Dose: 10 ml Sodium Chloride (Saline Flush) 2.5 ml FLUSH ASDIRECTED PRN PRN Reason: Keep Vein Open Last Admin: 12/13/18 17:55 Dose: 2.5 ml Discontinued Medications Acetaminophen (Tylenol Extra Strength) 1,000 mg PO ONETIME ONE Stop: 12/13/18 17:51 Last Admin: 12/13/18 17:55 Dose: 1,000 mg Acetaminophen (Tylenol Extra Strength) Confirm Administered Dose 1,000 mg .ROUTE .STK-MED ONE Stop: 12/13/18 17:52 Last Admin: 12/13/18 18:09 Dose: Not Given Diphenhydramine/Nystatin/Lidocaine (Magic Mouthwash) 10 ml PO QID PRN PRN Reason: Sore Throat Gabapentin (Neurontin) 100 mg PO TID JOYCE Last Admin: 12/16/18 13:33 Dose: 100 mg Sodium Chloride (Normal Saline) 1,000 mls @ 999 mls/hr IV STAT ONE Stop: 12/13/18 17:49 Last Admin: 12/13/18 17:10 Dose: 999 mls/hr Ceftriaxone Sodium/Dextrose 1 (gm/ Premix) 50 mls @ 100 mls/hr IV ONETIME ONE Stop: 12/13/18 17:58 Last Admin: 12/13/18 17:55 Dose: 100 mls/hr Ceftriaxone Sodium/Dextrose 1 (gm/ Premix) 50 mls @ 100 mls/hr IV Q24H JOYCE Sodium Chloride (Normal Saline) 1,000 mls @ 150 mls/hr IV ASDIRECTED JOYCE Magnesium Sulfate 4 gm/ Premix 100 mls @ 25 mls/hr IV ONETIME ONE Stop: 12/14/18 11:14 Last Admin: 12/14/18 08:01 Dose: 25 mls/hr Insulin Aspart (Novolog) 0 unit SUBCUT BIDAC [facility]; Protocol Last Admin: 12/14/18 17:24 Dose: Not Given Levothyroxine Sodium (Levothyroxine) 25 mcg PO ACBREAKFAST [facility] Last Admin: 12/14/18 06:41 Dose: Not Given Nadolol (Naldol) 20 mg PO DAILY [facility] Non-Formulary Medication (Nadolol [Corgard]) 20 mg PO DAILY [facility] Last Admin: 12/14/18 09:41 Dose: Not Given Non-Formulary Medication (Oxcarbazepine) 150 mg PO BID [facility] Last Admin: 12/14/18 09:41 Dose: Not Given Oxcarbazepine (Trileptal) 150 mg PO BID [facility] Potassium Chloride (Potassium Chloride) 40 meq PO ONETIME ONE Stop: 12/13/18 17:53 Last Admin: 12/13/18 18:06 Dose: 40 meq Potassium Chloride (Klor-Con M20) 40 meq PO ONETIME ONE Stop: 12/13/18 19:29 Last Admin: 12/13/18 21:20 Dose: 40 meq Potassium Chloride (Klor-Con M20) 40 meq PO ONETIME ONE Stop: 12/14/18 07:31 Last Admin: 12/14/18 08:00 Dose: 40 meq Potassium Chloride (Klor-Con M20) 20 meq PO ONETIME ONE Stop: 12/14/18 12:01 Last Admin: 12/14/18 11:10 Dose: 20 meq <Denis Hayes J - Last Filed: 12/17/18 19:27> Discharge Summary - Referral to Home Health Primary Care Physician: Philly Keith MD - Patient Data Vitals - Most Recent: Last Vital Signs Temp 36.1 C 12/17/18 07:43 Pulse 81 12/17/18 08:50 Resp 18 12/17/18 07:43 BP 107/73 12/17/18 08:50 Pulse Ox 96 12/17/18 07:43 I&O - Last 24 hours: Intake & Output 12/17/18 12/17/18 12/17/18 06:59 14:59 22:59 Intake Total 950 500 Output Total 550 500 Balance 400 0 Lab Results - Last 24 hrs: Laboratory Results - last 24 hr 12/16/18 12/17/18 12/17/18 Range/Units 17:33 06:00 06:00 WBC 3.29 L (4.0-11.0) K/uL RBC 3.50 L (4.30-5.90) M/uL Hgb 8.5 L (12.0-16.0) g/dL Hct 27.0 L (36.0-46.0) % MCV 77.1 L (80.0-98.0) fL MCH 24.3 L (27.0-32.0) pg MCHC 31.5 (31.0-37.0) g/dL RDW Std Deviation 65.4 H (28.0-62.0) fl RDW Coeff of Jovan 23 H (11.0-15.0) % Plt Count 54 L (150-400) K/uL Add Manual Diff YES Neutrophils % (Manual) 42 L (48.0-80.0) % Lymphocytes % (Manual) 47 H (16.0-40.0) % Monocytes % (Manual) 7 (0.0-15.0) % Eosinophils % (Manual) 3 (0.0-7.0) % Basophils % (Manual) 1 (0.0-1.5) % Nucleated RBC % 0.0 /100WBC Absolute Seg Neuts 1.4 (1.4-5.7) Lymphocytes # (Manual) 1.5 (0.6-2.4) Monocytes # (Manual) 0.2 (0.0-0.8) Eosinophils # (Manual) 0.1 (0.0-0.7) Basophils # (Manual) 0.0 (0.0-0.1) Nucleated RBCs # 0 K/uL Sodium 136 (136-145) mmol/L Potassium 3.9 (3.5-5.1) mmol/L Chloride 104 (98-107) mmol/L Carbon Dioxide 27.1 (21.0-32.0) mmol/L BUN 15 (7.0-18.0) mg/dL Creatinine 1.0 (0.6-1.0) mg/dL Est Cr Clr Drug Dosing 71.27 mL/min Estimated GFR (MDRD) > 60.0 ml/min Glucose 224 H (74-106) mg/dL POC Glucose 83 (60-110) mg/dL Calcium 6.7 L (8.5-10.1) mg/dL Total Bilirubin 1.5 H (0.2-1.0) mg/dL AST 83 H (15-37) IU/L ALT 42 (14-63) IU/L Alkaline Phosphatase 229 H (46-116) U/L Total Protein 5.8 L (6.4-8.2) g/dL Albumin 1.5 L (3.4-5.0) g/dL Globulin 4.3 H (2.6-4.0) g/dL Albumin/Globulin Ratio 0.4 L (0.9-1.6) 12/17/18 Range/Units 06:13 WBC (4.0-11.0) K/uL RBC (4.30-5.90) M/uL Hgb (12.0-16.0) g/dL Hct (36.0-46.0) % MCV (80.0-98.0) fL MCH (27.0-32.0) pg MCHC (31.0-37.0) g/dL RDW Std Deviation (28.0-62.0) fl RDW Coeff of Jovan (11.0-15.0) % Plt Count (150-400) K/uL Add Manual Diff Neutrophils % (Manual) (48.0-80.0) % Lymphocytes % (Manual) (16.0-40.0) % Monocytes % (Manual) (0.0-15.0) % Eosinophils % (Manual) (0.0-7.0) % Basophils % (Manual) (0.0-1.5) % Nucleated RBC % /100WBC Absolute Seg Neuts (1.4-5.7) Lymphocytes # (Manual) (0.6-2.4) Monocytes # (Manual) (0.0-0.8) Eosinophils # (Manual) (0.0-0.7) Basophils # (Manual) (0.0-0.1) Nucleated RBCs # K/uL Sodium (136-145) mmol/L Potassium (3.5-5.1) mmol/L Chloride (98-107) mmol/L Carbon Dioxide (21.0-32.0) mmol/L BUN (7.0-18.0) mg/dL Creatinine (0.6-1.0) mg/dL Est Cr Clr Drug Dosing mL/min Estimated GFR (MDRD) ml/min Glucose (74-106) mg/dL POC Glucose 213 H (60-110) mg/dL Calcium (8.5-10.1) mg/dL Total Bilirubin (0.2-1.0) mg/dL AST (15-37) IU/L ALT (14-63) IU/L Alkaline Phosphatase (46-116) U/L Total Protein (6.4-8.2) g/dL Albumin (3.4-5.0) g/dL Globulin (2.6-4.0) g/dL Albumin/Globulin Ratio (0.9-1.6) RICKIE Results - Last 24 hrs: Microbiology 12/13/18 18:04 Aerobic Blood Culture - Preliminary Blood - Venous - Lab Draw NO GROWTH AFTER 4 DAYS Anaerobic Blood Culture - Preliminary NO GROWTH AFTER 4 DAYS 12/13/18 17:53 Aerobic Blood Culture - Preliminary Blood - Venous NO GROWTH AFTER 4 DAYS Anaerobic Blood Culture - Final 12/14/18 17:24 Aerobic Blood Culture - Preliminary Blood - Venous - Lab Draw NO GROWTH AFTER 3 DAYS Anaerobic Blood Culture - Preliminary NO GROWTH AFTER 3 DAYS 12/14/18 17:12 Aerobic Blood Culture - Preliminary Blood - Venous NO GROWTH AFTER 3 DAYS Anaerobic Blood Culture - Preliminary NO GROWTH AFTER 3 DAYS 12/13/18 17:14 Urine Culture - Final Urine, Clean Catch Escherichia Coli. Med Orders - Current: Current Medications Discontinued Medications Acetaminophen (Tylenol Extra Strength) 1,000 mg PO ONETIME ONE Stop: 12/13/18 17:51 Last Admin: 12/13/18 17:55 Dose: 1,000 mg Acetaminophen (Tylenol Extra Strength) Confirm Administered Dose 1,000 mg .ROUTE .STK-MED ONE Stop: 12/13/18 17:52 Last Admin: 12/13/18 18:09 Dose: Not Given Acetaminophen (Tylenol) 650 mg PO Q4H PRN PRN Reason: Pain/Fever Last Admin: 12/15/18 11:28 Dose: 650 mg Bupropion HCl (Wellbutrin Xl) 300 mg PO DAILY [facility] Last Admin: 12/17/18 08:49 Dose: 300 mg Diphenhydramine/Nystatin/Lidocaine (Magic Mouthwash) 10 ml PO QID PRN PRN Reason: Sore Throat Furosemide (Lasix) 20 mg PO BIDDIURETIC [facility] Last Admin: 12/17/18 08:49 Dose: 20 mg Gabapentin (Neurontin) 100 mg PO TID [facility] Last Admin: 12/16/18 13:33 Dose: 100 mg Gabapentin (Neurontin) 300 mg PO TID [facility] Last Admin: 12/17/18 05:59 Dose: 300 mg Sodium Chloride (Normal Saline) 1,000 mls @ 999 mls/hr IV STAT ONE Stop: 12/13/18 17:49 Last Admin: 12/13/18 17:10 Dose: 999 mls/hr Ceftriaxone Sodium/Dextrose 1 (gm/ Premix) 50 mls @ 100 mls/hr IV ONETIME ONE Stop: 12/13/18 17:58 Last Admin: 12/13/18 17:55 Dose: 100 mls/hr Ceftriaxone Sodium/Dextrose 1 (gm/ Premix) 50 mls @ 100 mls/hr IV Q24H JOYCE Pantoprazole Sodium 40 mg/ (Sodium Chloride) 10 mls @ 300 mls/hr IV Q48H [facility] Last Admin: 12/15/18 18:43 Dose: 300 mls/hr Sodium Chloride (Normal Saline) 1,000 mls @ 150 mls/hr IV ASDIRECTED [facility] Magnesium Sulfate 4 gm/ Premix 100 mls @ 25 mls/hr IV ONETIME ONE Stop: 12/14/18 11:14 Last Admin: 12/14/18 08:01 Dose: 25 mls/hr Meropenem/Sodium Chloride 1 gm (/ Premix) 50 mls @ 100 mls/hr IV Q8H [facility] Last Admin: 12/17/18 11:19 Dose: Not Given Ibuprofen (Motrin) 400 mg PO Q6H PRN PRN Reason: Pain/Fever Last Admin: 12/16/18 17:43 Dose: 400 mg Insulin Aspart (Novolog) 0 unit SUBCUT TIDAC [facility]; Protocol Last Admin: 12/17/18 07:27 Dose: 4 unit Insulin Aspart (Novolog) 0 unit SUBCUT BIDAC [facility]; Protocol Last Admin: 12/14/18 17:24 Dose: Not Given Insulin Detemir (Levemir) 30 unit SUBCUT DAILY [facility] Last Admin: 12/17/18 08:58 Dose: 30 units Levothyroxine Sodium (Levothyroxine) 25 mcg PO ACBREAKFAST [facility] Last Admin: 12/14/18 06:41 Dose: Not Given Nadolol (Naldol) 20 mg PO DAILY [facility] Nadolol (Naldol) 20 mg PO DAILY [facility] Last Admin: 12/17/18 08:50 Dose: 20 mg Non-Formulary Medication (Nadolol [Corgard]) 20 mg PO DAILY [facility] Last Admin: 12/14/18 09:41 Dose: Not Given Non-Formulary Medication (Oxcarbazepine) 150 mg PO BID [facility] Last Admin: 12/14/18 09:41 Dose: Not Given Ondansetron HCl (Zofran) 4 mg IVPUSH Q4H PRN PRN Reason: Nausea/Vomiting Oxcarbazepine (Trileptal) 150 mg PO BID [facility] Oxcarbazepine (Trileptal) 150 mg PO BID [facility] Last Admin: 12/17/18 08:50 Dose: 150 mg Diphenhydramine/Lidocaine/Nystatin Suspension 237 Ml Bottle 1 each PO QID PRN PRN Reason: Sore Throat Last Admin: 12/15/18 17:53 Dose: 1 each Potassium Chloride (Potassium Chloride) 40 meq PO ONETIME ONE Stop: 12/13/18 17:53 Last Admin: 12/13/18 18:06 Dose: 40 meq Potassium Chloride (Klor-Con M20) 40 meq PO ONETIME ONE Stop: 12/13/18 19:29 Last Admin: 12/13/18 21:20 Dose: 40 meq Potassium Chloride (Klor-Con M20) 40 meq PO ONETIME ONE Stop: 12/14/18 07:31 Last Admin: 12/14/18 08:00 Dose: 40 meq Potassium Chloride (Klor-Con M20) 20 meq PO ONETIME ONE Stop: 12/14/18 12:01 Last Admin: 12/14/18 11:10 Dose: 20 meq Senna/Docusate Sodium (Senna Plus) 1 tab PO BID PRN PRN Reason: Constipation Last Admin: 12/15/18 10:02 Dose: 1 tab Sodium Chloride (Saline Flush) 10 ml FLUSH ASDIRECTED PRN PRN Reason: Keep Vein Open Last Admin: 12/13/18 17:55 Dose: 10 ml Sodium Chloride (Saline Flush) 2.5 ml FLUSH ASDIRECTED PRN PRN Reason: Keep Vein Open Last Admin: 12/13/18 17:55 Dose: 2.5 ml - Free Text/Narrative Note: I have seen and evaluated the patient with the resident. I have discussed findings and treatment plan with the resident. I agree with the assessment and plan outlined in the following note.
== END 2018-12-17 11:00 | disposition home or self-care (01) | DRG 872 ==
LOC: MW.ED 16:38 → MW.MS 18:46 → OBSVTOIN 12-14 10:23 → MW.MS 12-14 17:16
PROVIDERS: ADMIT Internal Medicine; ATTEND Internal Medicine
PROC: 30233N1 Transfusion of Nonautologous Red Blood Cells into Peripheral Vein, Percutaneous Approach (ICD-10-PCS; principal; 2018-12-14)
DX: N10 Acute pyelonephritis (principal); A41.9 Sepsis, unspecified organism; N12 Tubulo-interstitial nephritis, not specified as acute or chronic; R10.9 Unspecified abdominal pain; R50.9 Fever, unspecified; K76.6 Portal hypertension; D64.9 Anemia, unspecified; B96.20 Unspecified Escherichia coli [E. coli] as the cause of diseases classified elsewhere; E11.9 Type 2 diabetes mellitus without complications; K74.60 Unspecified cirrhosis of liver; J45.909 Unspecified asthma, uncomplicated; E83.42 Hypomagnesemia; F17.210 Nicotine dependence, cigarettes, uncomplicated; K21.9 Gastro-esophageal reflux disease without esophagitis; D72.819 Decreased white blood cell count, unspecified; Z90.49 Acquired absence of other specified parts of digestive tract; Z79.4 Long term (current) use of insulin; Z79.899 Other long term (current) drug therapy; Z87.440 Personal history of urinary (tract) infections; Z86.19 Personal history of other infectious and parasitic diseases; Z98.51 Tubal ligation status; Z98.890 Other specified postprocedural states
CPT/HCPCS: 36415; 36430; 80053 ×2; 81001; 82962 ×3; 83605 ×2; 83735 ×2; 85014; 85018; 85025 ×2; 85610; 86850; 86870; 86900; 86901; 86902; 86920; 86921; 86922; 87040 ×2; 87086; 87088; 87186; 96361; 96365; 96366; 96367; 96375; 99284; A9270 ×10; C9113; G0378 ×2; J0696; J1815 ×2; J3475; J7040; J7050; P9016 ×2; 76770; 76770-26; J2185

== ENCOUNTER 2018-12-24 14:19 | Emergency (ER) | payer MEDICARE, OTHER | END 2018-12-24 15:30 | disposition left against medical advice (07) | LOC: MW.ED 14:19 | DX: Z53.21 Procedure and treatment not carried out due to patient leaving prior to being seen by health care provider (principal) ==

== ENCOUNTER 2019-01-17 04:35 | Observation (INO) | payer MEDICARE, OTHER ==
[2019-01-17] MEDS ORDERED: Ondansetron 4 MG/2 ML SDV ONE (04:42)
[2019-01-17] MEDS ORDERED: Pantoprazole 40 MG Vial IVPUSH ONE (04:42)
[2019-01-17] MEDS ORDERED: Sodium Chloride 0.9% 10 ML Syringe FLUSH PRN (04:42)
[2019-01-17] MEDS ORDERED: Ondansetron 4 MG/2 ML SDV IVPUSH ONE (04:42)
[2019-01-17] MEDS ORDERED: Pantoprazole 40 MG Vial ONE (04:42)
[2019-01-17] MEDS ORDERED: Sodium Chloride 0.9% 20 ML ONE (04:42)
[2019-01-17] MEDS ORDERED: Sodium Chloride 0.9% 2.5 ML Syringe FLUSH PRN (04:42)
[2019-01-17] MEDS ORDERED: Sodium Chloride 0.9% 1,000 ML IV ONE (04:43)
[2019-01-17 05:04] LABS: BLOOD UREA NITROGEN,BUN 11 mg/dL (7.0-18.0); CARBON DIOXIDE,CO2 21.7 mmol/L (21.0-32.0); CHLORIDE,CL 104 mmol/L (98-107); GLUCOSE RANDOM 130 mg/dL (74-106); POTASSIUM,K 4.1 mmol/L (3.5-5.1); SODIUM,NA 134 mmol/L (136-145)
--- NOTE | 2019-01-17 05:30 | CR ---
Indication: Abdominal pain Technique: Abdomen 3 view Comparison: None Findings/Impression: Single-view chest shows no focal consolidation or pleural effusion. Heart size and mediastinum are unremarkable. Borderline dilated loops of small bowel within the mid abdomen with abundant colonic air and a moderate amount of stool within the colon. No pneumoperitoneum seen. Right upper quadrant surgical clips. This bowel gas pattern is considered somewhat nonspecific although a bit more suggestive of an enteritis/ileus. Dictated by Mirza Kelly MD @ Jan 17 2019 5:27AM Signed by Dr. Mirza Kelly @ Jan 17 2019 5:29AM
--- NOTE | 2019-01-17 05:38 | EDM.PDOC ---
ED HPI GENERAL MEDICAL PROBLEM - General Chief Complaint: Abdominal Pain Stated Complaint: AMB Time Seen by Provider: 01/17/19 05:52 - History of Present Illness INITIAL COMMENTS - FREE TEXT/NARRATIVE: HISTORY AND PHYSICAL: History of present illness: Patient's a 43-year-old white female with extensive past medical history including history of hepatitis C anemia thrombocytopenia diabetes portal hypertension she is admitted to our facility most recently on December 17, 2018 for pyelonephritis. She presents today after having reported hematemesis at home. She complains of abdominal discomfort primarily in her epigastrium she denies melena or hematochezia there's been no chest pain or shortness of breath Review of systems: As per history of present illness and below otherwise all systems reviewed and negative. Past medical history: As per history of present illness and as reviewed below otherwise noncontributory. Surgical history: As per history of present illness and as reviewed below otherwise noncontributory. Social history: No reported history of drug or alcohol abuse. Family history: As per history of present illness and as reviewed below otherwise noncontributory. Physical exam: HEENT: Atraumatic, normocephalic, pupils reactive, conjunctiva pallor noted no scleral icterus, mucous membranes dry, throat clear, neck supple, nontender, trachea midline. Lungs: Clear to auscultation, breath sounds equal bilaterally, chest nontender. Heart: S1S2, regular, negative for clicks, rubs, or JVD. Abdomen: Soft, protuberant with tenderness in the upper abdomen this is not well localized no rebound no guarding. Negative for masses or hepatosplenomegaly. Negative for costovertebral tenderness. Pelvis: Stable nontender. Genitourinary: Deferred. Rectal: Deferred. Extremities: Atraumatic, negative for cords or calf pain. Neurovascular unremarkable. Peripheral edema noted inferior extremities with 2-3+ edema Neuro: Awake, alert, oriented. Cranial nerves II through XII unremarkable. Cerebellum unremarkable. Motor and sensory unremarkable throughout. Exam nonfocal. Diagnostics: CBC CMP PT/INR BNP magnesium level chest x-ray EKG CT abdomen and pelvis UA UDS type and screen Therapeutics: IV O2 monitor Protonix 80 mg IV Zofran 4 mg IV Impression: #1 abdominal pain #2 history of hepatitis C #3 history of hematemesis #4 history of diabetes #5 history of thrombocytopenia Definitive disposition and diagnosis as appropriate pending reevaluation and review of above. RUQ abdomen Pain Score (Numeric/FACES): 10 - Related Data Allergies Allergy/AdvReac Type Severity Reaction Status Date / Time codeine Allergy Itching Verified 01/17/19 04:51 Home Meds: Home Meds traZODone 50 mg PO BEDTIME PRN 04/22/17 [History] Furosemide 20 mg PO BID PRN 09/09/17 [History] Gabapentin [Neurontin] 300 mg PO TID 09/09/17 [History] Lactulose 10 ml PO Q4H PRN 09/09/17 [History] OXcarbazepine [Oxcarbazepine] 150 mg PO BID 09/09/17 [History] buPROPion HCl [Wellbutrin Xl] 300 mg PO DAILY 09/09/17 [History] Levothyroxine Sodium [Synthroid] 75 mcg PO ACBREAKFAST 10/01/17 [History] Nadolol [Corgard] 20 mg PO DAILY 10/01/17 [History] Pantoprazole [ProTONIX] 40 mg PO ACBREAKFAST 10/01/17 [History] Diphenhyd/Lidocaine/Nystatin [Magic Mouthwash] 1 - 2 tsp PO Q4HR PRN 12/13/18 [ History] DULoxetine [Cymbalta] 20 mg PO DAILY 12/14/18 [History] Insulin Aspart [NovoLOG] 10 unit SUBCUT TIDAC 12/14/18 [History] Insulin Detemir [Levemir] 30 unit SUBCUT DAILY 12/14/18 [History] Nicotine [Nicotine Patch] 21 mg TD DAILY 12/14/18 [History] Past Medical History - Past Health History Medical/Surgical History: Denies Medical/Surgical History HEENT History: Reports: Impaired Vision Cardiovascular History: Reports: Heart Murmur Other Cardiovascular History: Takes diuretics for portal HTN and swelling Respiratory History: Reports: Asthma Gastrointestinal History: Reports: Cholelithiasis, GI Bleed, Hepatitis, Other ( See Below) Other Gastrointestinal History: Gastric Ulcer, pancreatitis? 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 Immunologic History: Reports: None Other Immunologic History: Hep-c Oncologic (Cancer) History: Reports: None Dermatologic History: Reports: Urticaria - Infectious Disease History Infectious Disease History: Reports: Chicken Pox, Hepatitis C - Past Surgical History Head Surgeries/Procedures: Reports: None HEENT Surgical History: Reports: LASIK Respiratory Surgical History: Reports: None GI Surgical History: Reports: Cholecystectomy, EGD Female Surgical History: Reports: Section, Tubal Ligation Endocrine Surgical History: Reports: None Neurological Surgical History: Reports: Lumbar Spine Musculoskeletal Surgical History: Reports: Other (See Below) Other Musculoskeletal Surgeries/Procedures:: ankle surgery, back surgery Dermatological Surgical History: Reports: None Social & Family History - Family History Family Medical History: Noncontributory - Tobacco Use Smoking Status *Q: Current Every Day Smoker Years of Tobacco use: 27 Packs/Tins Daily: 1 - Caffeine Use Caffeine Use: Reports: Coffee Other Caffeine Use: occasional coffee, unsweetened tea - Recreational Drug Use Recreational Drug Use: No ED ROS GENERAL - Review of Systems Review Of Systems: ROS reveals no pertinent complaints other than HPI. ED EXAM, GENERAL - Physical Exam Exam: See Below (See dictation) Course - Vital Signs Text/Narrative:: Arrangements were made for transfer to [facility] patient is refusing transfer I did discuss with her at length my concerns regarding her anemia her history of hematemesis her complex medical problems are thrombocytopenia and hypomagnesemia she remains adamant against transfer I did discuss with Dr. Hayes on the above and he has graciously agreed to accept her in light of her refusal for transfer Coty Russell to a telemetry bed is observation impression remains #1 history of hematemesis #2 thrombocytopenia #3 hypomagnesemia #4 history of diabetes #5 history of hepatitis C Last Recorded V/S: Last Vital Signs Temp 36.4 C 01/17/19 04:35 Pulse 97 01/17/19 05:21 Resp 20 01/17/19 05:21 BP 132/93 H 01/17/19 05:21 Pulse Ox 97 01/17/19 05:21 - Orders/Labs/Meds Orders: Active Orders 24 hr Category Date Time Status Patient Status [ADT] Stat ADT 01/17/19 06:03 Ordered EKG Documentation Completion [RC] STAT Care 01/17/19 04:46 Active Abdomen Pelvis wo Cont [CT] Stat Exams 01/17/19 05:33 Taken B-TYPE NATRIURETIC PEPTIDE,BNP [CHEM] Stat Lab 01/17/19 04:35 Received DRUG SCREEN, URINE [URCHEM] Stat Lab 01/17/19 04:45 Ordered TYPE AND SCREEN [BBK] Stat Lab 01/17/19 05:38 Ordered UA RFX RICKIE AND CULT IF INDIC [URIN] Stat Lab 01/17/19 04:42 Ordered Magnesium Sulfate/Water [Magnesium Sulfate in Water Med 01/17/19 05:53 Active Premix] 2 gm Premix Bag 1 bag IV ONETIME Sodium Chloride 0.9% [Saline Flush] Med 01/17/19 04:42 Active 10 ml FLUSH ASDIRECTED PRN Sodium Chloride 0.9% [Saline Flush] Med 01/17/19 04:42 Active 2.5 ml FLUSH ASDIRECTED PRN Saline Lock Insert [OM.PC] Stat Oth 01/17/19 04:42 Ordered Medication Orders Magnesium Sulfate 2 gm/ Premix 50 mls @ 50 mls/hr IV ONETIME ONE Stop: 01/17/19 06:52 Last Admin: 01/17/19 06:00 Dose: 50 mls/hr Sodium Chloride (Saline Flush) 10 ml FLUSH ASDIRECTED PRN PRN Reason: Keep Vein Open Sodium Chloride (Saline Flush) 2.5 ml FLUSH ASDIRECTED PRN PRN Reason: Keep Vein Open Labs: Laboratory Tests 01/17/19 01/17/19 01/17/19 Range/Units 04:35 04:35 04:35 WBC 5.27 (4.0-11.0) K/uL RBC 3.62 L (4.30-5.90) M/uL Hgb 8.7 L (12.0-16.0) g/dL Hct 27.8 L (36.0-46.0) % MCV 76.8 L (80.0-98.0) fL MCH 24.0 L (27.0-32.0) pg MCHC 31.3 (31.0-37.0) g/dL RDW Std Deviation 65.1 H (28.0-62.0) fl RDW Coeff of Jovan 23 H (11.0-15.0) % Plt Count 69 L (150-400) K/uL Neut % (Auto) 58.6 (48.0-80.0) % Lymph % (Auto) 26.8 (16.0-40.0) % Latimer % (Auto) 11.0 (0.0-15.0) % Eos % (Auto) 3.0 (0.0-7.0) % Baso % (Auto) 0.6 (0.0-1.5) % Neut # (Auto) 3.1 (1.4-5.7) K/uL Lymph # (Auto) 1.4 (0.6-2.4) K/uL Latimer # (Auto) 0.6 (0.0-0.8) K/uL Eos # (Auto) 0.2 (0.0-0.7) K/uL Baso # (Auto) 0.0 (0.0-0.1) K/uL Nucleated RBC % 0.0 /100WBC Nucleated RBCs # 0 K/uL INR 1.47 Sodium 134 L (136-145) mmol/L Potassium 4.1 (3.5-5.1) mmol/L Chloride 104 (98-107) mmol/L Carbon Dioxide 21.7 (21.0-32.0) mmol/L BUN 11 (7.0-18.0) mg/dL Creatinine 0.8 (0.6-1.0) mg/dL Est Cr Clr Drug Dosing TNP Estimated GFR (MDRD) > 60.0 ml/min Glucose 130 H (74-106) mg/dL Calcium 7.3 L (8.5-10.1) mg/dL Magnesium (1.8-2.4) mg/dL Total Bilirubin 1.8 H (0.2-1.0) mg/dL AST 110 H (15-37) IU/L ALT 77 H (14-63) IU/L Alkaline Phosphatase 364 H (46-116) U/L Total Protein 7.3 (6.4-8.2) g/dL Albumin 1.8 L (3.4-5.0) g/dL Globulin 5.5 H (2.6-4.0) g/dL Albumin/Globulin Ratio 0.3 L (0.9-1.6) 01/17/19 Range/Units 04:35 WBC (4.0-11.0) K/uL RBC (4.30-5.90) M/uL Hgb (12.0-16.0) g/dL Hct (36.0-46.0) % MCV (80.0-98.0) fL MCH (27.0-32.0) pg MCHC (31.0-37.0) g/dL RDW Std Deviation (28.0-62.0) fl RDW Coeff of Jovan (11.0-15.0) % Plt Count (150-400) K/uL Neut % (Auto) (48.0-80.0) % Lymph % (Auto) (16.0-40.0) % Latimer % (Auto) (0.0-15.0) % Eos % (Auto) (0.0-7.0) % Baso % (Auto) (0.0-1.5) % Neut # (Auto) (1.4-5.7) K/uL Lymph # (Auto) (0.6-2.4) K/uL Latimer # (Auto) (0.0-0.8) K/uL Eos # (Auto) (0.0-0.7) K/uL Baso # (Auto) (0.0-0.1) K/uL Nucleated RBC % /100WBC Nucleated RBCs # K/uL INR Sodium (136-145) mmol/L Potassium (3.5-5.1) mmol/L Chloride (98-107) mmol/L Carbon Dioxide (21.0-32.0) mmol/L BUN (7.0-18.0) mg/dL Creatinine (0.6-1.0) mg/dL Est Cr Clr Drug Dosing Estimated GFR (MDRD) ml/min Glucose (74-106) mg/dL Calcium (8.5-10.1) mg/dL Magnesium 1.4 L (1.8-2.4) mg/dL Total Bilirubin (0.2-1.0) mg/dL AST (15-37) IU/L ALT (14-63) IU/L Alkaline Phosphatase (46-116) U/L Total Protein (6.4-8.2) g/dL Albumin (3.4-5.0) g/dL Globulin (2.6-4.0) g/dL Albumin/Globulin Ratio (0.9-1.6) Meds: Medications Generic Name Dose Route Start Last Admin Trade Name Freq PRN Reason Stop Dose Admin Magnesium Sulfate 2 gm/ Premix 50 mls @ 50 mls/hr 01/17/19 05:53 01/17/19 06: 00 IV 01/17/19 06:52 50 mls/hr ONETIME ONE Administration Sodium Chloride 10 ml 01/17/19 04:42 Saline Flush FLUSH ASDIRECTED PRN Keep Vein Open Sodium Chloride 2.5 ml 01/17/19 04:42 Saline Flush FLUSH ASDIRECTED PRN Keep Vein Open Discontinued Medications Generic Name Dose Route Start Last Admin Trade Name Grantq PRN Reason Stop Dose Admin Sodium Chloride 1,000 mls @ 999 mls/hr 01/17/19 04:43 01/17/19 06:00 Normal Saline IV 01/17/19 05:43 125 mls/hr STAT ONE Infusion Sodium Chloride Confirm 01/17/19 04:42 01/17/19 04:47 Normal Saline Administered 01/17/19 04:43 20 mls/hr Dose Administration 20 mls @ as directed .ROUTE .STK-MED ONE Magnesium Sulfate Confirm 01/17/19 05:56 01/17/19 06:02 Magnesium Sulfate In Water Premix Administered 01/17/19 05:57 Not Given Dose 50 mls @ as directed .ROUTE .STK-MED ONE Ondansetron HCl 4 mg 01/17/19 04:42 01/17/19 04:48 Zofran IVPUSH 01/17/19 04:43 4 mg ONETIME ONE Administration Ondansetron HCl Confirm 01/17/19 04:42 01/17/19 04:48 Zofran Administered 01/17/19 04:43 Not Given Dose 4 mg .ROUTE .STK-MED ONE Pantoprazole Sodium 80 mg 01/17/19 04:42 01/17/19 04:48 Protonix Iv IVPUSH 01/17/19 04:43 80 mg .BOLUS ONE Administration Pantoprazole Sodium Confirm 01/17/19 04:42 01/17/19 04:48 Protonix Iv Administered 01/17/19 04:43 Not Given Dose 80 mg .ROUTE .STK-MED ONE Departure - Departure Time of Disposition: 05:53 Disposition: Refer to Observation Condition: Serious Clinical Impression: Thrombocytopenia, History of hepatitis C, History of hematemesis Anemia Qualifiers: Anemia type: unspecified type Qualified Code(s): D64.9 - Anemia, unspecified Abdominal pain Qualifiers: Abdominal location: generalized Qualified Code(s): R10.84 - Generalized abdominal pain - Discharge Information Referrals: PCP,None [Primary Care Provider] - Forms: ED Department Discharge - My Orders Last 24 Hours: My Active Orders 01/17/19 04:35 B-TYPE NATRIURETIC PEPTIDE,BNP [CHEM] Stat 01/17/19 04:42 UA RFX RICKIE AND CULT IF INDIC [URIN] Stat Sodium Chloride 0.9% [Saline Flush] 10 ml FLUSH ASDIRECTED PRN Sodium Chloride 0.9% [Saline Flush] 2.5 ml FLUSH ASDIRECTED PRN Saline Lock Insert [OM.PC] Stat 01/17/19 04:45 DRUG SCREEN, URINE [URCHEM] Stat 01/17/19 04:46 EKG Documentation Completion [RC] STAT 01/17/19 05:33 Abdomen Pelvis wo Cont [CT] Stat 01/17/19 05:38 TYPE AND SCREEN [BBK] Stat 01/17/19 05:53 Magnesium Sulfate/Water [Magnesium Sulfate in Water Premix] 2 gm Premix Bag 1 bag IV ONETIME 01/17/19 06:03 Patient Status [ADT] Stat - Assessment/Plan Last 24 Hours: My Active Orders 01/17/19 04:35 B-TYPE NATRIURETIC PEPTIDE,BNP [CHEM] Stat 01/17/19 04:42 UA RFX RICKIE AND CULT IF INDIC [URIN] Stat Sodium Chloride 0.9% [Saline Flush] 10 ml FLUSH ASDIRECTED PRN Sodium Chloride 0.9% [Saline Flush] 2.5 ml FLUSH ASDIRECTED PRN Saline Lock Insert [OM.PC] Stat 01/17/19 04:45 DRUG SCREEN, URINE [URCHEM] Stat 01/17/19 04:46 EKG Documentation Completion [RC] STAT 01/17/19 05:33 Abdomen Pelvis wo Cont [CT] Stat 01/17/19 05:38 TYPE AND SCREEN [BBK] Stat 01/17/19 05:53 Magnesium Sulfate/Water [Magnesium Sulfate in Water Premix] 2 gm Premix Bag 1 bag IV ONETIME 01/17/19 06:03 Patient Status [ADT] Stat
[2019-01-17] MEDS ORDERED: Magnesium Sulfate/Water 2 GM in Premix Bag 1 BAG IV ONE (05:53)
[2019-01-17] MEDS ORDERED: Magnesium Sulfate/Water 50 ML ONE (05:56)
--- NOTE | 2019-01-17 06:18 | CT ---
INDICATION: abdominal pain INDICATION: Abdominal pain. TECHNIQUE: CT abdomen and pelvis without contrast. Coronal/sagittal reconstruction images. COMPARISON: None FINDINGS: Lower chest: No pleural/pericardial effusion. Heart size is normal. No basilar pneumothorax. Liver: Cirrhotic liver morphology. Liver measures 21.9 cm in length. Spleen: Unremarkable. Pancreas: Unremarkable. Gallbladder and bile ducts: Cholecystectomy. Normal caliber biliary tree. Kidneys: 11 millimeter benign cyst in the posterior cortex of the left kidney. No hydronephrosis. No solid renal mass. No obstructive urolith. Adrenal glands: Unremarkable. GI tract: Fold thickening throughout the small bowel and colon, which is likely secondary to the presence of ascites. There is no pneumoperitoneum, pneumatosis, or portal venous gas. Vascular structures: No abdominal aortic aneurysm. Lymph nodes: Unremarkable. Miscellaneous: Unremarkable. No free air or significant free fluid. Pelvic Organs: There is a cystic mass containing a central calcification in the right adnexa, which may be intra-ovarian. This was present on the study from 05/15/2018. This is subtle, measuring 5.4 x 5.4 cm in transverse and AP dimensions. Pelvic ultrasound is suggested to further assess. Bones: No suspicious bone lesions are seen. IMPRESSION: 1. Cirrhotic liver morphology, with hepatomegaly, and abdominal/pelvic ascites. 2. Persistent right cystic adnexal mass. This is larger today when compared with 05/15/2018. Correlation with pelvic ultrasound is suggested. 3. There is no abdominal or pelvic lymphadenopathy. Dictated by Celio Ramos MD @ 01/17/2019 6:16:08 AM Please note that all CT scans at this facility use dose modulation, iterative reconstruction, and/or weight-based dosing when appropriate to reduce radiation dose to as low as reasonably achievable. Dictated by: Celio Ramos MD @ 01/17/2019 06:16:30 (Electronically Signed)
[2019-01-17] MEDS ORDERED: Ondansetron 4 MG/2 ML SDV IVPUSH PRN (09:45)
[2019-01-17] MEDS: oxyCODONE 5 MG Tab PO PRN ×4 (10:25→21:41)
[2019-01-17] MEDS: Ondansetron 4 MG Tab.DIS PO PRN ×2 (11:36→17:43)
[2019-01-17] MEDS: Morphine 10 MG/ML Syringe IVPUSH PRN ×6 (11:37→23:57)
--- NOTE | 2019-01-17 14:27 | PCM.HP.2 ---
H&P History of Present Illness - General Date of Service: 01/17/19 Admit Problem/Dx: Admission Diagnosis/Problem Admission Diagnosis/Problem Abdominal pain - History of Present Illness Initial Comments - Free Text/Narative: 43 y/o female with history of Hep C and suspected liver cirrhosis who presented to the ER complaining of worsening abdominal pain. Patient was recently hospitalized few weeks ago for pyelonephritis which was treated with IV antibiotics and also noted to be anemic and thrombocytopenic needing 2 units of PRBCs. Since then, she states she has been having worsening abdominal pain. No vomiting or blood in stool. States she has been taking her medications as indicated. Denies any alcohol intake since previous hospitalization. States she has been getting more swollen in her legs. Denies any change in vision. She does endorse some pleuritic chest pain. RUQ abdomen Pain Score (Numeric/FACES): 10 - Related Data Allergies/Adverse Reactions: Allergies Allergy/AdvReac Type Severity Reaction Status Date / Time codeine Allergy Itching Verified 01/17/19 10:28 Home Medications: Home Meds traZODone 50 mg PO BEDTIME PRN 04/22/17 [History] Furosemide 40 mg PO BID 09/09/17 [History] OXcarbazepine [Oxcarbazepine] 150 mg PO BID 09/09/17 [History] Levothyroxine Sodium [Synthroid] 75 mcg PO ACBREAKFAST 10/01/17 [History] Nadolol [Corgard] 20 mg PO DAILY 10/01/17 [History] Diphenhyd/Lidocaine/Nystatin [Magic Mouthwash] 5 - 20 ml PO Q4HR PRN 12/13/18 [ History] Insulin Aspart [NovoLOG] 9 unit SUBCUT TIDAC 12/14/18 [History] Insulin Detemir [Levemir] 30 unit SUBCUT DAILY 12/14/18 [History] DULoxetine [Cymbalta] 30 mg PO DAILY 01/17/19 [History] Omeprazole 40 mg PO ACBREAKFAST 01/17/19 [History] Spironolactone 50 mg PO BID 01/17/19 [History] Past Medical History - Past Health History Medical/Surgical History: Denies Medical/Surgical History HEENT History: Reports: Impaired Vision Cardiovascular History: Reports: Heart Murmur Other Cardiovascular History: Takes diuretics for portal HTN and swelling Respiratory History: Reports: Asthma Gastrointestinal History: Reports: Cholelithiasis, GI Bleed, Hepatitis, Other ( See Below) Other Gastrointestinal History: Gastric Ulcer, pancreatitis? and ileius Genitourinary History: Reports: UTI, Recurrent [employer]OR History: Reports: Musculoskeletal History: Reports: None Other Musculoskeletal History: Herniated disk, lumbar fracture, fractured right ankle Neurological History: Reports: Concussion, Other (See Below) Other Neuro History: Mild strokes 10 yrs ago Psychiatric History: Reports: Anxiety, Bipolar, Depression Endocrine/Metabolic History: Reports: Diabetes, Type II, Hypothyroidism Other Endocrine/Metabolic History: pt stated she was on thyroxine before but says to stop it a month ago Hematologic History: Reports: Anemia, Other (See Below) Other Hematologic History: Pt reports low white blood cell and platelet count. Immunologic History: Reports: None Other Immunologic History: Hep-c Oncologic (Cancer) History: Reports: None Dermatologic History: Reports: Urticaria - Infectious Disease History Infectious Disease History: Reports: Chicken Pox, Hepatitis C - Past Surgical History Head Surgeries/Procedures: Reports: None HEENT Surgical History: Reports: LASIK Respiratory Surgical History: Reports: None GI Surgical History: Reports: Cholecystectomy, EGD Female Surgical History: Reports: Section, Tubal Ligation Endocrine Surgical History: Reports: None Neurological Surgical History: Reports: Lumbar Spine Musculoskeletal Surgical History: Reports: Other (See Below) Other Musculoskeletal Surgeries/Procedures:: ankle surgery, back surgery Dermatological Surgical History: Reports: None Social & Family History - Family History Family Medical History: Noncontributory - Tobacco Use Smoking Status *Q: Current Every Day Smoker Years of Tobacco use: 15 Packs/Tins Daily: 1 Used Tobacco, but Quit: No Second Hand Smoke Exposure: Yes - Caffeine Use Caffeine Use: Reports: None Other Caffeine Use: occasional coffee, unsweetened tea - Recreational Drug Use Recreational Drug Use: No H&P Review of Systems - Review of Systems: Review Of Systems: ROS reveals no pertinent complaints other than HPI. Exam - Exam Exam: See Below - Vital Signs Vital Signs: Last Vital Signs Temp 37.4 C 01/17/19 12:00 Pulse 102 H 01/17/19 12:00 Resp 20 01/17/19 12:00 BP 105/59 L 01/17/19 12:00 Pulse Ox 98 01/17/19 12:00 Weight: 96.3 kg - Exam General: Alert, Oriented, Cooperative HEENT: Conjunctiva Clear, Other (dry oral mucosa) Lungs: Clear to Auscultation, Normal Respiratory Effort. No: Crackles, Wheezing Cardiovascular: Regular Rate, Regular Rhythm GI/Abdominal Exam: Other (large pannus with some diffuse tenderness. No rebound. Positive fluid wave. ) Extremities: Normal Inspection, No Pedal Edema Skin: Warm, Dry Neuro Extensive - Mental Status: Alert, Oriented x3 - Patient Data Lab Results Last 24 hrs: Laboratory Results - last 24 hr 01/17/19 01/17/19 01/17/19 Range/Units 04:35 04:35 04:35 WBC 5.27 (4.0-11.0) K/uL RBC 3.62 L (4.30-5.90) M/uL Hgb 8.7 L (12.0-16.0) g/dL Hct 27.8 L (36.0-46.0) % MCV 76.8 L (80.0-98.0) fL MCH 24.0 L (27.0-32.0) pg MCHC 31.3 (31.0-37.0) g/dL RDW Std Deviation 65.1 H (28.0-62.0) fl RDW Coeff of Jovan 23 H (11.0-15.0) % Plt Count 69 L (150-400) K/uL Neut % (Auto) 58.6 (48.0-80.0) % Lymph % (Auto) 26.8 (16.0-40.0) % [place] % (Auto) 11.0 (0.0-15.0) % Eos % (Auto) 3.0 (0.0-7.0) % Baso % (Auto) 0.6 (0.0-1.5) % Neut # (Auto) 3.1 (1.4-5.7) K/uL Lymph # (Auto) 1.4 (0.6-2.4) K/uL [place] # (Auto) 0.6 (0.0-0.8) K/uL Eos # (Auto) 0.2 (0.0-0.7) K/uL Baso # (Auto) 0.0 (0.0-0.1) K/uL Nucleated RBC % 0.0 /100WBC Nucleated RBCs # 0 K/uL INR 1.47 Sodium 134 L (136-145) mmol/L Potassium 4.1 (3.5-5.1) mmol/L Chloride 104 (98-107) mmol/L Carbon Dioxide 21.7 (21.0-32.0) mmol/L BUN 11 (7.0-18.0) mg/dL Creatinine 0.8 (0.6-1.0) mg/dL Est Cr Clr Drug Dosing TNP Estimated GFR (MDRD) > 60.0 ml/min Glucose 130 H (74-106) mg/dL Calcium 7.3 L (8.5-10.1) mg/dL Magnesium (1.8-2.4) mg/dL Total Bilirubin 1.8 H (0.2-1.0) mg/dL AST 110 H (15-37) IU/L ALT 77 H (14-63) IU/L Alkaline Phosphatase 364 H (46-116) U/L B-Natriuretic Peptide (<100) PG/ML Total Protein 7.3 (6.4-8.2) g/dL Albumin 1.8 L (3.4-5.0) g/dL Globulin 5.5 H (2.6-4.0) g/dL Albumin/Globulin Ratio 0.3 L (0.9-1.6) Urine Color Urine Appearance Urine pH (5.0-8.0) Ur Specific [place] (1.001-1.035) Urine Protein (NEGATIVE) mg/dL Urine Glucose (UA) (NEGATIVE) mg/dL Urine Ketones (NEGATIVE) mg/dL Urine Occult Blood (NEGATIVE) Urine Nitrite (NEGATIVE) Urine Bilirubin (NEGATIVE) Urine Urobilinogen (<2.0) EU/dL Ur Leukocyte Esterase (NEGATIVE) Urine Opiates Screen (NEGATIVE) Ur Oxycodone Screen (NEGATIVE) Urine Methadone Screen (NEGATIVE) Ur Barbiturates Screen (NEGATIVE) Ur Phencyclidine Scrn (NEGATIVE) Ur Amphetamine Screen (NEGATIVE) U Methamphetamines Scrn (NEGATIVE) U Benzodiazepines Scrn (NEGATIVE) U Cocaine Metab Screen (NEGATIVE) U Marijuana (THC) Screen (NEGATIVE) Blood Type Antibody Screen Antibody Identification Crossmatch 01/17/19 01/17/19 01/17/19 Range/Units 04:35 04:35 11:40 WBC (4.0-11.0) K/uL RBC (4.30-5.90) M/uL Hgb (12.0-16.0) g/dL Hct (36.0-46.0) % MCV (80.0-98.0) fL MCH (27.0-32.0) pg MCHC (31.0-37.0) g/dL RDW Std Deviation (28.0-62.0) fl RDW Coeff of Jovan (11.0-15.0) % Plt Count (150-400) K/uL Neut % (Auto) (48.0-80.0) % Lymph % (Auto) (16.0-40.0) % [place] % (Auto) (0.0-15.0) % Eos % (Auto) (0.0-7.0) % Baso % (Auto) (0.0-1.5) % Neut # (Auto) (1.4-5.7) K/uL Lymph # (Auto) (0.6-2.4) K/uL [place] # (Auto) (0.0-0.8) K/uL Eos # (Auto) (0.0-0.7) K/uL Baso # (Auto) (0.0-0.1) K/uL Nucleated RBC % /100WBC Nucleated RBCs # K/uL INR Sodium (136-145) mmol/L Potassium (3.5-5.1) mmol/L Chloride (98-107) mmol/L Carbon Dioxide (21.0-32.0) mmol/L BUN (7.0-18.0) mg/dL Creatinine (0.6-1.0) mg/dL Est Cr Clr Drug Dosing Estimated GFR (MDRD) ml/min Glucose (74-106) mg/dL Calcium (8.5-10.1) mg/dL Magnesium 1.4 L (1.8-2.4) mg/dL Total Bilirubin (0.2-1.0) mg/dL AST (15-37) IU/L ALT (14-63) IU/L Alkaline Phosphatase (46-116) U/L B-Natriuretic Peptide 26 (<100) PG/ML Total Protein (6.4-8.2) g/dL Albumin (3.4-5.0) g/dL Globulin (2.6-4.0) g/dL Albumin/Globulin Ratio (0.9-1.6) Urine Color Urine Appearance Urine pH (5.0-8.0) Ur Specific [place] (1.001-1.035) Urine Protein (NEGATIVE) mg/dL Urine Glucose (UA) (NEGATIVE) mg/dL Urine Ketones (NEGATIVE) mg/dL Urine Occult Blood (NEGATIVE) Urine Nitrite (NEGATIVE) Urine Bilirubin (NEGATIVE) Urine Urobilinogen (<2.0) EU/dL Ur Leukocyte Esterase (NEGATIVE) Urine Opiates Screen (NEGATIVE) Ur Oxycodone Screen (NEGATIVE) Urine Methadone Screen (NEGATIVE) Ur Barbiturates Screen (NEGATIVE) Ur Phencyclidine Scrn (NEGATIVE) Ur Amphetamine Screen (NEGATIVE) U Methamphetamines Scrn (NEGATIVE) U Benzodiazepines Scrn (NEGATIVE) U Cocaine Metab Screen (NEGATIVE) U Marijuana (THC) Screen (NEGATIVE) Blood Type O POSITIVE Antibody Screen POSITIVE Antibody Identification Anti-E Crossmatch 01/17/19 01/17/19 01/17/19 Range/Units 11:40 12:08 12:08 WBC (4.0-11.0) K/uL RBC (4.30-5.90) M/uL Hgb (12.0-16.0) g/dL Hct (36.0-46.0) % MCV (80.0-98.0) fL MCH (27.0-32.0) pg MCHC (31.0-37.0) g/dL RDW Std Deviation (28.0-62.0) fl RDW Coeff of Jovan (11.0-15.0) % Plt Count (150-400) K/uL Neut % (Auto) (48.0-80.0) % Lymph % (Auto) (16.0-40.0) % [place] % (Auto) (0.0-15.0) % Eos % (Auto) (0.0-7.0) % Baso % (Auto) (0.0-1.5) % Neut # (Auto) (1.4-5.7) K/uL Lymph # (Auto) (0.6-2.4) K/uL [place] # (Auto) (0.0-0.8) K/uL Eos # (Auto) (0.0-0.7) K/uL Baso # (Auto) (0.0-0.1) K/uL Nucleated RBC % /100WBC Nucleated RBCs # K/uL INR Sodium (136-145) mmol/L Potassium (3.5-5.1) mmol/L Chloride (98-107) mmol/L Carbon Dioxide (21.0-32.0) mmol/L BUN (7.0-18.0) mg/dL Creatinine (0.6-1.0) mg/dL Est Cr Clr Drug Dosing Estimated GFR (MDRD) ml/min Glucose (74-106) mg/dL Calcium (8.5-10.1) mg/dL Magnesium (1.8-2.4) mg/dL Total Bilirubin (0.2-1.0) mg/dL AST (15-37) IU/L ALT (14-63) IU/L Alkaline Phosphatase (46-116) U/L B-Natriuretic Peptide (<100) PG/ML Total Protein (6.4-8.2) g/dL Albumin (3.4-5.0) g/dL Globulin (2.6-4.0) g/dL Albumin/Globulin Ratio (0.9-1.6) Urine Color YELLOW Urine Appearance SLT CLOUDY Urine pH 5.5 (5.0-8.0) Ur Specific [place] 1.025 (1.001-1.035) Urine Protein NEGATIVE (NEGATIVE) mg/dL Urine Glucose (UA) NEGATIVE (NEGATIVE) mg/dL Urine Ketones NEGATIVE (NEGATIVE) mg/dL Urine Occult Blood NEGATIVE (NEGATIVE) Urine Nitrite NEGATIVE (NEGATIVE) Urine Bilirubin NEGATIVE (NEGATIVE) Urine Urobilinogen 0.2 (<2.0) EU/dL Ur Leukocyte Esterase NEGATIVE (NEGATIVE) Urine Opiates Screen POSITIVE (NEGATIVE) Ur Oxycodone Screen POSITIVE (NEGATIVE) Urine Methadone Screen NEGATIVE (NEGATIVE) Ur Barbiturates Screen NEGATIVE (NEGATIVE) Ur Phencyclidine Scrn NEGATIVE (NEGATIVE) Ur Amphetamine Screen NEGATIVE (NEGATIVE) U Methamphetamines Scrn NEGATIVE (NEGATIVE) U Benzodiazepines Scrn NEGATIVE (NEGATIVE) U Cocaine Metab Screen NEGATIVE (NEGATIVE) U Marijuana (THC) Screen POSITIVE (NEGATIVE) Blood Type Antibody Screen Antibody Identification Crossmatch See Detail Result Diagrams: 01/17/19 04:35 01/17/19 04:35 Problem List Initiated/Reviewed/Updated: Yes Orders Last 24hrs: Active Orders 24 hr Category Date Time Status Patient Status [ADT] Stat ADT 01/17/19 06:03 Active Antiembolic Devices [RC] PER UNIT ROUTINE Care 01/17/19 09:47 Active Bedrest Bathroom Privileges [RC] ASDIRECTED Care 01/17/19 09:45 Active Blood Glucose Check, Bedside [RC] WITHMEALSANDBED Care 01/17/19 09:45 Active Height and Weight [RC] DAILY Care 01/17/19 09:45 Active Intake and Output [RC] Q12H Care 01/17/19 09:46 Active Oxygen Therapy [RC] PRN Care 01/17/19 09:45 Active Telemetry Monitoring [Cardiac Monitoring] [RC] . Care 01/17/19 06:14 Active DIRECTED VTE/DVT Education [RC] PER UNIT ROUTINE Care 01/17/19 09:45 Active Vital Signs [RC] Q4H Care 01/17/19 09:45 Active Regular Diet [DIET] Diet 01/17/19 Breakfast Active RED BLOOD CELLS LP [BBK] Routine Lab 01/17/19 11:40 Results Morphine Med 01/17/19 09:45 Active 2 mg IVPUSH Q2H PRN Ondansetron [Zofran ODT] Med 01/17/19 09:45 Active 4 mg PO Q4H PRN Ondansetron [Zofran] Med 01/17/19 09:45 Active 4 mg IVPUSH Q4H PRN Sodium Chloride 0.9% [Saline Flush] Med 01/17/19 04:42 Active 10 ml FLUSH ASDIRECTED PRN Sodium Chloride 0.9% [Saline Flush] Med 01/17/19 04:42 Active 2.5 ml FLUSH ASDIRECTED PRN oxyCODONE Med 01/17/19 09:45 Active 5 mg PO Q4H PRN Saline Lock Insert [OM.PC] Stat Oth 01/17/19 04:42 Ordered Sequential Compression Device [OM.PC] Per Unit Routine Oth 01/17/19 09:46 Ordered Resuscitation Status Routine Resus Stat 01/17/19 09:45 Ordered Medication Orders Morphine Sulfate (Morphine) 2 mg IVPUSH Q2H PRN PRN Reason: Pain (severe 7-10) Stop: 01/18/19 09:46 Last Admin: 01/17/19 13:47 Dose: 2 mg Admin: 01/17/19 11:37 Dose: 2 mg Ondansetron HCl (Zofran Odt) 4 mg PO Q4H PRN PRN Reason: nausea, able to take PO Last Admin: 01/17/19 11:36 Dose: 4 mg Ondansetron HCl (Zofran) 4 mg IVPUSH Q4H PRN PRN Reason: Nausea Oxycodone HCl (Oxycodone) 5 mg PO Q4H PRN PRN Reason: Pain (moderate 4-6) Last Admin: 01/17/19 10:25 Dose: 5 mg Sodium Chloride (Saline Flush) 10 ml FLUSH ASDIRECTED PRN PRN Reason: Keep Vein Open Sodium Chloride (Saline Flush) 2.5 ml FLUSH ASDIRECTED PRN PRN Reason: Keep Vein Open Assessment/Plan Comment:: A: 1. Acute on chronic liver disease 2. Right adnexal cyst 3. Anemia 4. Thrombocytopenia 5. Polysubstance abuse P: 1. Acute on chronic liver disease. Will fluid restrict to 1.8 L/ day. Will order Lasix 40 mg IV once and start spironolactone. Strict I/O's, daily weights. Bedside abdominal ultrasound was performed but not sufficient ascitic fluid seen to withdraw. There was no safe window identified. 2. Right adnexal cyst- will need to follow-up outpatient for further evaluation with pelvic ultrasound. Dispo: likely dc tomorrow.
[2019-01-17] MEDS ORDERED: cefTRIAXone 1 GM in Premix Bag 1 BAG IV ONE ×2 (14:58→16:15)
[2019-01-17] MEDS ORDERED: Furosemide 40 MG/4 ML VIAL IVPUSH ONE (15:30)
[2019-01-17] MEDS: Lactulose Soln 10 GM/15 ML 15 ML UD Cup PO SCH (20:45)
[2019-01-17] MEDS: OXcarbazepine 300 MG Tab PO SCH (20:46)
[2019-01-17] MEDS: Spironolactone 25 MG Tab PO SCH (20:46)
[2019-01-17] MEDS ORDERED: traZODone 50 MG Tab PO PRN (23:45)
[2019-01-18] MEDS: Morphine 10 MG/ML Syringe IVPUSH PRN (03:15)
[2019-01-18 05:35] LABS: BLOOD UREA NITROGEN,BUN 13 mg/dL (7.0-18.0); CARBON DIOXIDE,CO2 22.7 mmol/L (21.0-32.0); CHLORIDE,CL 102 mmol/L (98-107); GLUCOSE RANDOM 120 mg/dL (74-106); SODIUM,NA 133 mmol/L (136-145)
[2019-01-18] MEDS ORDERED: Levothyroxine 75 MCG Tab PO SCH (07:30)
[2019-01-18] MEDS ORDERED: Omeprazole 20 MG Cap.CR PO SCH (08:00)
[2019-01-18] MEDS: oxyCODONE 5 MG Tab PO PRN ×2 (08:10→12:53)
[2019-01-18] MEDS: Spironolactone 25 MG Tab PO SCH (08:13)
[2019-01-18] MEDS: OXcarbazepine 300 MG Tab PO SCH (08:14)
[2019-01-18] MEDS: Lactulose Soln 10 GM/15 ML 15 ML UD Cup PO SCH (08:14)
[2019-01-18] MEDS ORDERED: Magnesium Sulfate/Water 2 GM in Premix Bag 1 BAG IV ONE (08:34)
[2019-01-18] MEDS ORDERED: cefTRIAXone 1 GM in Premix Bag 1 BAG IV SCH (08:45)
[2019-01-18] MEDS ORDERED: DULoxetine 30 MG Cap PO SCH (09:00)
[2019-01-18] MEDS ORDERED: Insulin Detemir 100 Units/ML 3 ML Pen SUBCUT SCH (09:00)
[2019-01-18] MEDS ORDERED: Furosemide 40 MG/4 ML VIAL IVPUSH ONE (10:30)
--- NOTE | 2019-01-18 11:04 | PCM.DCSUM1 ---
<Cedrick Carrillo - Last Filed: 01/18/19 18:28> Discharge Summary - Hospital Course Free Text/Narrative:: 43 y/o female with history of suspected liver cirrhosis who was admitted for acute on chronic liver disease. Patient was fluid restricted and started on IV lasix. In addition, bedside ultrasound was performed for possible diagnostic and therapeutic paracentesis, however, small amount of ascitees seen and no viable approach to safely drain her ascites was possible. She was started on lasix and spironolactone. In addition, started lactulose since patient had not been taking it at home. She was advised to take her medications as indicated and follow-up with her PCP and GI. - Discharge Data Discharge Date: 01/18/19 Discharge Disposition: Home, Self-Care 01 Condition: Stable - Referral to Home Health Primary Care Physician: PCP None - Patient Instructions Diet: Regular Diet as Tolerated Fluid Restriction: 2000 mL Activity: As Tolerated Notify Provider of: Fever, Increased Pain, Swelling and Redness, Nausea and/or Vomiting - Discharge Plan Prescriptions/Med Rec: Lactulose [Chronulac] 10 gm PO BID 30 Days #60 cup Ondansetron [Zofran ODT] 4 mg PO Q6H PRN #30 tab.dis PRN Reason: nausea, able to take PO oxyCODONE 5 mg PO Q8H PRN #15 tablet PRN Reason: Pain (Moderate 4-6) Home Medications: Home Meds traZODone 50 mg PO BEDTIME PRN 04/22/17 [History] Furosemide 40 mg PO BID 09/09/17 [History] OXcarbazepine [Oxcarbazepine] 150 mg PO BID 09/09/17 [History] Levothyroxine Sodium [Synthroid] 75 mcg PO ACBREAKFAST 10/01/17 [History] Nadolol [Corgard] 20 mg PO DAILY 10/01/17 [History] Diphenhyd/Lidocaine/Nystatin [Magic Mouthwash] 5 - 20 ml PO Q4HR PRN 12/13/18 [ History] Insulin Aspart [NovoLOG] 9 unit SUBCUT TIDAC 12/14/18 [History] Insulin Detemir [Levemir] 30 unit SUBCUT DAILY 12/14/18 [History] DULoxetine [Cymbalta] 30 mg PO DAILY 01/17/19 [History] Omeprazole 40 mg PO ACBREAKFAST 01/17/19 [History] Spironolactone 50 mg PO BID 01/17/19 [History] Lactulose [Chronulac] 10 gm PO BID 30 Days #60 cup 01/18/19 [Rx] Ondansetron [Zofran ODT] 4 mg PO Q6H PRN #30 tab.dis 01/18/19 [Rx] oxyCODONE 5 mg PO Q8H PRN #15 tablet 01/18/19 [Rx] Patient Handouts: Ondansetron tablets, Oxycodone tablets or capsules, Lactulose oral solution Referrals: Philly Keith MD [Physician] - 02/06/19 10:00 am - Discharge Summary/Plan Comment DC Time >30 min.: No - Patient Data Vitals - Most Recent: Last Vital Signs Temp 36.5 C 01/18/19 04:42 Pulse 102 H 01/18/19 08:13 Resp 18 01/18/19 04:42 BP 136/87 01/18/19 08:13 Pulse Ox 93 L 01/18/19 04:42 Weight - Most Recent: 96.2 kg I&O - Last 24 hours: Intake & Output 01/17/19 01/18/19 01/18/19 22:59 06:59 14:59 Intake Total 1250 900 Output Total 2640 300 Balance -1390 600 Lab Results - Last 24 hrs: Laboratory Results - last 24 hr 01/17/19 01/17/19 01/17/19 Range/Units 11:40 11:40 12:08 WBC (4.0-11.0) K/uL RBC (4.30-5.90) M/uL Hgb (12.0-16.0) g/dL Hct (36.0-46.0) % MCV (80.0-98.0) fL MCH (27.0-32.0) pg MCHC (31.0-37.0) g/dL RDW Std Deviation (28.0-62.0) fl RDW Coeff of Jovan (11.0-15.0) % Plt Count (150-400) K/uL Neut % (Auto) (48.0-80.0) % Lymph % (Auto) (16.0-40.0) % [place] % (Auto) (0.0-15.0) % Eos % (Auto) (0.0-7.0) % Baso % (Auto) (0.0-1.5) % Neut # (Auto) (1.4-5.7) K/uL Lymph # (Auto) (0.6-2.4) K/uL [place] # (Auto) (0.0-0.8) K/uL Eos # (Auto) (0.0-0.7) K/uL Baso # (Auto) (0.0-0.1) K/uL Nucleated RBC % /100WBC Nucleated RBCs # K/uL Sodium (136-145) mmol/L Potassium (3.5-5.1) mmol/L Chloride (98-107) mmol/L Carbon Dioxide (21.0-32.0) mmol/L BUN (7.0-18.0) mg/dL Creatinine (0.6-1.0) mg/dL Est Cr Clr Drug Dosing mL/min Estimated GFR (MDRD) ml/min Glucose (74-106) mg/dL POC Glucose (60-110) mg/dL Calcium (8.5-10.1) mg/dL Magnesium (1.8-2.4) mg/dL Total Bilirubin (0.2-1.0) mg/dL AST (15-37) IU/L ALT (14-63) IU/L Alkaline Phosphatase (46-116) U/L Total Protein (6.4-8.2) g/dL Albumin (3.4-5.0) g/dL Globulin (2.6-4.0) g/dL Albumin/Globulin Ratio (0.9-1.6) Urine Color YELLOW Urine Appearance SLT CLOUDY Urine pH 5.5 (5.0-8.0) Ur Specific [place] 1.025 (1.001-1.035) Urine Protein NEGATIVE (NEGATIVE) mg/dL Urine Glucose (UA) NEGATIVE (NEGATIVE) mg/dL Urine Ketones NEGATIVE (NEGATIVE) mg/dL Urine Occult Blood NEGATIVE (NEGATIVE) Urine Nitrite NEGATIVE (NEGATIVE) Urine Bilirubin NEGATIVE (NEGATIVE) Urine Urobilinogen 0.2 (<2.0) EU/dL Ur Leukocyte Esterase NEGATIVE (NEGATIVE) Urine Opiates Screen (NEGATIVE) Ur Oxycodone Screen (NEGATIVE) Urine Methadone Screen (NEGATIVE) Ur Barbiturates Screen (NEGATIVE) Ur Phencyclidine Scrn (NEGATIVE) Ur Amphetamine Screen (NEGATIVE) U Methamphetamines Scrn (NEGATIVE) U Benzodiazepines Scrn (NEGATIVE) U Cocaine Metab Screen (NEGATIVE) U Marijuana (THC) Screen (NEGATIVE) Blood Type O POSITIVE Antibody Screen POSITIVE Antibody Identification Anti-E Crossmatch See Detail 01/17/19 01/17/19 01/17/19 Range/Units 12:08 15:19 18:18 WBC (4.0-11.0) K/uL RBC (4.30-5.90) M/uL Hgb (12.0-16.0) g/dL Hct (36.0-46.0) % MCV (80.0-98.0) fL MCH (27.0-32.0) pg MCHC (31.0-37.0) g/dL RDW Std Deviation (28.0-62.0) fl RDW Coeff of Jovan (11.0-15.0) % Plt Count (150-400) K/uL Neut % (Auto) (48.0-80.0) % Lymph % (Auto) (16.0-40.0) % [place] % (Auto) (0.0-15.0) % Eos % (Auto) (0.0-7.0) % Baso % (Auto) (0.0-1.5) % Neut # (Auto) (1.4-5.7) K/uL Lymph # (Auto) (0.6-2.4) K/uL [place] # (Auto) (0.0-0.8) K/uL Eos # (Auto) (0.0-0.7) K/uL Baso # (Auto) (0.0-0.1) K/uL Nucleated RBC % /100WBC Nucleated RBCs # K/uL Sodium (136-145) mmol/L Potassium (3.5-5.1) mmol/L Chloride (98-107) mmol/L Carbon Dioxide (21.0-32.0) mmol/L BUN (7.0-18.0) mg/dL Creatinine (0.6-1.0) mg/dL Est Cr Clr Drug Dosing mL/min Estimated GFR (MDRD) ml/min Glucose (74-106) mg/dL POC Glucose 88 89 (60-110) mg/dL Calcium (8.5-10.1) mg/dL Magnesium (1.8-2.4) mg/dL Total Bilirubin (0.2-1.0) mg/dL AST (15-37) IU/L ALT (14-63) IU/L Alkaline Phosphatase (46-116) U/L Total Protein (6.4-8.2) g/dL Albumin (3.4-5.0) g/dL Globulin (2.6-4.0) g/dL Albumin/Globulin Ratio (0.9-1.6) Urine Color Urine Appearance Urine pH (5.0-8.0) Ur Specific [place] (1.001-1.035) Urine Protein (NEGATIVE) mg/dL Urine Glucose (UA) (NEGATIVE) mg/dL Urine Ketones (NEGATIVE) mg/dL Urine Occult Blood (NEGATIVE) Urine Nitrite (NEGATIVE) Urine Bilirubin (NEGATIVE) Urine Urobilinogen (<2.0) EU/dL Ur Leukocyte Esterase (NEGATIVE) Urine Opiates Screen POSITIVE (NEGATIVE) Ur Oxycodone Screen POSITIVE (NEGATIVE) Urine Methadone Screen NEGATIVE (NEGATIVE) Ur Barbiturates Screen NEGATIVE (NEGATIVE) Ur Phencyclidine Scrn NEGATIVE (NEGATIVE) Ur Amphetamine Screen NEGATIVE (NEGATIVE) U Methamphetamines Scrn NEGATIVE (NEGATIVE) U Benzodiazepines Scrn NEGATIVE (NEGATIVE) U Cocaine Metab Screen NEGATIVE (NEGATIVE) U Marijuana (THC) Screen POSITIVE (NEGATIVE) Blood Type Antibody Screen Antibody Identification Crossmatch 01/17/19 01/18/19 01/18/19 Range/Units 21:53 04:43 04:43 WBC 4.48 (4.0-11.0) K/uL RBC 3.19 L (4.30-5.90) M/uL Hgb 7.6 L (12.0-16.0) g/dL Hct 25.1 L (36.0-46.0) % MCV 78.7 L (80.0-98.0) fL MCH 23.8 L (27.0-32.0) pg MCHC 30.3 L (31.0-37.0) g/dL RDW Std Deviation 65.6 H (28.0-62.0) fl RDW Coeff of Jovan 23 H (11.0-15.0) % Plt Count 49 L (150-400) K/uL Neut % (Auto) 54.5 (48.0-80.0) % Lymph % (Auto) 28.6 (16.0-40.0) % [place] % (Auto) 13.4 (0.0-15.0) % Eos % (Auto) 3.1 (0.0-7.0) % Baso % (Auto) 0.4 (0.0-1.5) % Neut # (Auto) 2.4 (1.4-5.7) K/uL Lymph # (Auto) 1.3 (0.6-2.4) K/uL [place] # (Auto) 0.6 (0.0-0.8) K/uL Eos # (Auto) 0.1 (0.0-0.7) K/uL Baso # (Auto) 0.0 (0.0-0.1) K/uL Nucleated RBC % 0.0 /100WBC Nucleated RBCs # 0 K/uL Sodium 133 L (136-145) mmol/L Potassium 4.0 (3.5-5.1) mmol/L Chloride 102 (98-107) mmol/L Carbon Dioxide 22.7 (21.0-32.0) mmol/L BUN 13 (7.0-18.0) mg/dL Creatinine 1.0 (0.6-1.0) mg/dL Est Cr Clr Drug Dosing 71.27 mL/min Estimated GFR (MDRD) > 60.0 ml/min Glucose 120 H (74-106) mg/dL POC Glucose 169 H (60-110) mg/dL Calcium 7.4 L (8.5-10.1) mg/dL Magnesium 1.5 L (1.8-2.4) mg/dL Total Bilirubin 1.9 H (0.2-1.0) mg/dL AST 110 H (15-37) IU/L ALT 69 H (14-63) IU/L Alkaline Phosphatase 220 H (46-116) U/L Total Protein 6.9 (6.4-8.2) g/dL Albumin 1.8 L (3.4-5.0) g/dL Globulin 5.1 H (2.6-4.0) g/dL Albumin/Globulin Ratio 0.4 L (0.9-1.6) Urine Color Urine Appearance Urine pH (5.0-8.0) Ur Specific [place] (1.001-1.035) Urine Protein (NEGATIVE) mg/dL Urine Glucose (UA) (NEGATIVE) mg/dL Urine Ketones (NEGATIVE) mg/dL Urine Occult Blood (NEGATIVE) Urine Nitrite (NEGATIVE) Urine Bilirubin (NEGATIVE) Urine Urobilinogen (<2.0) EU/dL Ur Leukocyte Esterase (NEGATIVE) Urine Opiates Screen (NEGATIVE) Ur Oxycodone Screen (NEGATIVE) Urine Methadone Screen (NEGATIVE) Ur Barbiturates Screen (NEGATIVE) Ur Phencyclidine Scrn (NEGATIVE) Ur Amphetamine Screen (NEGATIVE) U Methamphetamines Scrn (NEGATIVE) U Benzodiazepines Scrn (NEGATIVE) U Cocaine Metab Screen (NEGATIVE) U Marijuana (THC) Screen (NEGATIVE) Blood Type Antibody Screen Antibody Identification Crossmatch 01/18/19 01/18/19 Range/Units 06:15 08:19 WBC (4.0-11.0) K/uL RBC (4.30-5.90) M/uL Hgb (12.0-16.0) g/dL Hct (36.0-46.0) % MCV (80.0-98.0) fL MCH (27.0-32.0) pg MCHC (31.0-37.0) g/dL RDW Std Deviation (28.0-62.0) fl RDW Coeff of Jovan (11.0-15.0) % Plt Count (150-400) K/uL Neut % (Auto) (48.0-80.0) % Lymph % (Auto) (16.0-40.0) % [place] % (Auto) (0.0-15.0) % Eos % (Auto) (0.0-7.0) % Baso % (Auto) (0.0-1.5) % Neut # (Auto) (1.4-5.7) K/uL Lymph # (Auto) (0.6-2.4) K/uL [place] # (Auto) (0.0-0.8) K/uL Eos # (Auto) (0.0-0.7) K/uL Baso # (Auto) (0.0-0.1) K/uL Nucleated RBC % /100WBC Nucleated RBCs # K/uL Sodium (136-145) mmol/L Potassium (3.5-5.1) mmol/L Chloride (98-107) mmol/L Carbon Dioxide (21.0-32.0) mmol/L BUN (7.0-18.0) mg/dL Creatinine (0.6-1.0) mg/dL Est Cr Clr Drug Dosing mL/min Estimated GFR (MDRD) ml/min Glucose (74-106) mg/dL POC Glucose 102 108 (60-110) mg/dL Calcium (8.5-10.1) mg/dL Magnesium (1.8-2.4) mg/dL Total Bilirubin (0.2-1.0) mg/dL AST (15-37) IU/L ALT (14-63) IU/L Alkaline Phosphatase (46-116) U/L Total Protein (6.4-8.2) g/dL Albumin (3.4-5.0) g/dL Globulin (2.6-4.0) g/dL Albumin/Globulin Ratio (0.9-1.6) Urine Color Urine Appearance Urine pH (5.0-8.0) Ur Specific [place] (1.001-1.035) Urine Protein (NEGATIVE) mg/dL Urine Glucose (UA) (NEGATIVE) mg/dL Urine Ketones (NEGATIVE) mg/dL Urine Occult Blood (NEGATIVE) Urine Nitrite (NEGATIVE) Urine Bilirubin (NEGATIVE) Urine Urobilinogen (<2.0) EU/dL Ur Leukocyte Esterase (NEGATIVE) Urine Opiates Screen (NEGATIVE) Ur Oxycodone Screen (NEGATIVE) Urine Methadone Screen (NEGATIVE) Ur Barbiturates Screen (NEGATIVE) Ur Phencyclidine Scrn (NEGATIVE) Ur Amphetamine Screen (NEGATIVE) U Methamphetamines Scrn (NEGATIVE) U Benzodiazepines Scrn (NEGATIVE) U Cocaine Metab Screen (NEGATIVE) U Marijuana (THC) Screen (NEGATIVE) Blood Type Antibody Screen Antibody Identification Crossmatch Med Orders - Current: Current Medications Duloxetine HCl (Cymbalta) 30 mg PO DAILY [facility] Last Admin: 01/18/19 08:14 Dose: 30 mg Ceftriaxone Sodium/Dextrose 1 (gm/ Premix) 50 mls @ 100 mls/hr IV Q24H [facility] Last Admin: 01/18/19 09:50 Dose: 100 mls/hr Insulin Detemir (Levemir) 30 unit SUBCUT DAILY [facility] Last Admin: 01/18/19 09:30 Dose: 30 units Lactulose (Chronulac) 10 gm PO BID [facility] Last Admin: 01/18/19 08:14 Dose: 10 gm Levothyroxine Sodium (Levothyroxine) 75 mcg PO ACBREAKFAST [facility] Last Admin: 01/18/19 07:40 Dose: 75 mcg Nadolol (Naldol) 20 mg PO DAILY [facility] Last Admin: 01/18/19 08:13 Dose: 20 mg Omeprazole (Omeprazole) 40 mg PO WITHBREAKFAST [facility] Last Admin: 01/18/19 08:13 Dose: 40 mg Ondansetron HCl (Zofran Odt) 4 mg PO Q4H PRN PRN Reason: nausea, able to take PO Last Admin: 01/17/19 17:43 Dose: 4 mg Ondansetron HCl (Zofran) 4 mg IVPUSH Q4H PRN PRN Reason: Nausea Last Admin: 01/17/19 22:31 Dose: 4 mg Oxcarbazepine (Trileptal) 150 mg PO BID [facility] Last Admin: 01/18/19 08:14 Dose: 150 mg Oxycodone HCl (Oxycodone) 5 mg PO Q4H PRN PRN Reason: Pain (moderate 4-6) Last Admin: 01/18/19 08:10 Dose: 5 mg Sodium Chloride (Saline Flush) 10 ml FLUSH ASDIRECTED PRN PRN Reason: Keep Vein Open Sodium Chloride (Saline Flush) 2.5 ml FLUSH ASDIRECTED PRN PRN Reason: Keep Vein Open Spironolactone (Aldactone) 50 mg PO BID [facility] Last Admin: 01/18/19 08:13 Dose: 50 mg Trazodone HCl (Trazodone) 50 mg PO BEDTIME PRN PRN Reason: Sleep Last Admin: 01/17/19 23:57 Dose: 50 mg Discontinued Medications Furosemide (Lasix) 40 mg IVPUSH NOW ONE Stop: 01/17/19 15:31 Last Admin: 01/17/19 16:11 Dose: 40 mg Furosemide (Lasix) 40 mg IVPUSH NOW ONE Stop: 01/18/19 10:31 Last Admin: 01/18/19 10:41 Dose: 40 mg Sodium Chloride (Normal Saline) 1,000 mls @ 999 mls/hr IV STAT ONE Stop: 01/17/19 05:43 Last Infusion: 01/17/19 06:00 Dose: 125 mls/hr Sodium Chloride (Normal Saline) Confirm Administered Dose 20 mls @ as directed .ROUTE .STK-MED ONE Stop: 01/17/19 04:43 Last Admin: 01/17/19 04:47 Dose: 20 mls/hr Magnesium Sulfate 2 gm/ Premix 50 mls @ 50 mls/hr IV ONETIME ONE Stop: 01/17/19 06:52 Last Admin: 01/17/19 06:00 Dose: 50 mls/hr Magnesium Sulfate (Magnesium Sulfate In Water Premix) Confirm Administered Dose 50 mls @ as directed .ROUTE .STK-MED ONE Stop: 01/17/19 05:57 Last Admin: 01/17/19 06:02 Dose: Not Given Ceftriaxone Sodium/Dextrose 1 (gm/ Premix) 50 mls @ 100 mls/hr IV ONETIME ONE Stop: 01/17/19 15:27 Last Admin: 01/17/19 16:16 Dose: 100 mls/hr Ceftriaxone Sodium/Dextrose 1 (gm/ Premix) 50 mls @ 100 mls/hr IV ONETIME ONE Stop: 01/17/19 16:44 Last Admin: 01/17/19 16:20 Dose: Not Given Magnesium Sulfate 2 gm/ Premix 50 mls @ 25 mls/hr IV ONETIME ONE Stop: 01/18/19 10:33 Last Admin: 01/18/19 10:27 Dose: 25 mls/hr Morphine Sulfate (Morphine) 2 mg IVPUSH Q2H PRN PRN Reason: Pain (severe 7-10) Stop: 01/18/19 09:46 Last Admin: 01/18/19 03:15 Dose: 2 mg Ondansetron HCl (Zofran) 4 mg IVPUSH ONETIME ONE Stop: 01/17/19 04:43 Last Admin: 01/17/19 04:48 Dose: 4 mg Ondansetron HCl (Zofran) Confirm Administered Dose 4 mg .ROUTE .STK-MED ONE Stop: 01/17/19 04:43 Last Admin: 01/17/19 04:48 Dose: Not Given Pantoprazole Sodium (Protonix Iv) 80 mg IVPUSH .BOLUS ONE Stop: 01/17/19 04:43 Last Admin: 01/17/19 04:48 Dose: 80 mg Pantoprazole Sodium (Protonix Iv) Confirm Administered Dose 80 mg .ROUTE .STK -MED ONE Stop: 01/17/19 04:43 Last Admin: 01/17/19 04:48 Dose: Not Given Trazodone HCl (Trazodone Hcl) 50 mg PO BEDTIME PRN PRN Reason: Sleep <Denis Hayes - Last Filed: 01/18/19 20:39> Discharge Summary - Referral to Home Health Primary Care Physician: PCP None - Patient Data Vitals - Most Recent: Last Vital Signs Temp 36.6 C 01/18/19 11:26 Pulse 92 01/18/19 11:26 Resp 14 01/18/19 11:26 BP 127/73 01/18/19 11:26 Pulse Ox 94 L 01/18/19 11:26 I&O - Last 24 hours: Intake & Output 01/18/19 01/18/19 01/18/19 06:59 14:59 22:59 Intake Total 900 Output Total 300 Balance 600 Lab Results - Last 24 hrs: Laboratory Results - last 24 hr 01/17/19 01/18/19 01/18/19 Range/Units 21:53 04:43 04:43 WBC 4.48 (4.0-11.0) K/uL RBC 3.19 L (4.30-5.90) M/uL Hgb 7.6 L (12.0-16.0) g/dL Hct 25.1 L (36.0-46.0) % MCV 78.7 L (80.0-98.0) fL MCH 23.8 L (27.0-32.0) pg MCHC 30.3 L (31.0-37.0) g/dL RDW Std Deviation 65.6 H (28.0-62.0) fl RDW Coeff of Jovan 23 H (11.0-15.0) % Plt Count 49 L (150-400) K/uL Neut % (Auto) 54.5 (48.0-80.0) % Lymph % (Auto) 28.6 (16.0-40.0) % [place] % (Auto) 13.4 (0.0-15.0) % Eos % (Auto) 3.1 (0.0-7.0) % Baso % (Auto) 0.4 (0.0-1.5) % Neut # (Auto) 2.4 (1.4-5.7) K/uL Lymph # (Auto) 1.3 (0.6-2.4) K/uL [place] # (Auto) 0.6 (0.0-0.8) K/uL Eos # (Auto) 0.1 (0.0-0.7) K/uL Baso # (Auto) 0.0 (0.0-0.1) K/uL Nucleated RBC % 0.0 /100WBC Nucleated RBCs # 0 K/uL Sodium 133 L (136-145) mmol/L Potassium 4.0 (3.5-5.1) mmol/L Chloride 102 (98-107) mmol/L Carbon Dioxide 22.7 (21.0-32.0) mmol/L BUN 13 (7.0-18.0) mg/dL Creatinine 1.0 (0.6-1.0) mg/dL Est Cr Clr Drug Dosing 71.27 mL/min Estimated GFR (MDRD) > 60.0 ml/min Glucose 120 H (74-106) mg/dL POC Glucose 169 H (60-110) mg/dL Calcium 7.4 L (8.5-10.1) mg/dL Magnesium 1.5 L (1.8-2.4) mg/dL Total Bilirubin 1.9 H (0.2-1.0) mg/dL AST 110 H (15-37) IU/L ALT 69 H (14-63) IU/L Alkaline Phosphatase 220 H (46-116) U/L Total Protein 6.9 (6.4-8.2) g/dL Albumin 1.8 L (3.4-5.0) g/dL Globulin 5.1 H (2.6-4.0) g/dL Albumin/Globulin Ratio 0.4 L (0.9-1.6) 01/18/19 01/18/19 01/18/19 Range/Units 06:15 08:19 13:00 WBC (4.0-11.0) K/uL RBC (4.30-5.90) M/uL Hgb (12.0-16.0) g/dL Hct (36.0-46.0) % MCV (80.0-98.0) fL MCH (27.0-32.0) pg MCHC (31.0-37.0) g/dL RDW Std Deviation (28.0-62.0) fl RDW Coeff of Jovan (11.0-15.0) % Plt Count (150-400) K/uL Neut % (Auto) (48.0-80.0) % Lymph % (Auto) (16.0-40.0) % [place] % (Auto) (0.0-15.0) % Eos % (Auto) (0.0-7.0) % Baso % (Auto) (0.0-1.5) % Neut # (Auto) (1.4-5.7) K/uL Lymph # (Auto) (0.6-2.4) K/uL [place] # (Auto) (0.0-0.8) K/uL Eos # (Auto) (0.0-0.7) K/uL Baso # (Auto) (0.0-0.1) K/uL Nucleated RBC % /100WBC Nucleated RBCs # K/uL Sodium (136-145) mmol/L Potassium (3.5-5.1) mmol/L Chloride (98-107) mmol/L Carbon Dioxide (21.0-32.0) mmol/L BUN (7.0-18.0) mg/dL Creatinine (0.6-1.0) mg/dL Est Cr Clr Drug Dosing mL/min Estimated GFR (MDRD) ml/min Glucose (74-106) mg/dL POC Glucose 102 108 143 H (60-110) mg/dL Calcium (8.5-10.1) mg/dL Magnesium (1.8-2.4) mg/dL Total Bilirubin (0.2-1.0) mg/dL AST (15-37) IU/L ALT (14-63) IU/L Alkaline Phosphatase (46-116) U/L Total Protein (6.4-8.2) g/dL Albumin (3.4-5.0) g/dL Globulin (2.6-4.0) g/dL Albumin/Globulin Ratio (0.9-1.6) RICKIE Results - Last 24 hrs: Microbiology 01/17/19 15:20 Aerobic Blood Culture - Preliminary Blood - Venous - Lab Draw NO GROWTH AFTER 1 DAY Anaerobic Blood Culture - Preliminary NO GROWTH AFTER 1 DAY 01/17/19 15:10 Aerobic Blood Culture - Preliminary Blood - Venous NO GROWTH AFTER 1 DAY Anaerobic Blood Culture - Preliminary NO GROWTH AFTER 1 DAY Med Orders - Current: Current Medications Discontinued Medications Duloxetine HCl (Cymbalta) 30 mg PO DAILY [facility] Last Admin: 01/18/19 08:14 Dose: 30 mg Furosemide (Lasix) 40 mg IVPUSH NOW ONE Stop: 01/17/19 15:31 Last Admin: 01/17/19 16:11 Dose: 40 mg Furosemide (Lasix) 40 mg IVPUSH NOW ONE Stop: 01/18/19 10:31 Last Admin: 01/18/19 10:41 Dose: 40 mg Sodium Chloride (Normal Saline) 1,000 mls @ 999 mls/hr IV STAT ONE Stop: 01/17/19 05:43 Last Infusion: 01/17/19 06:00 Dose: 125 mls/hr Sodium Chloride (Normal Saline) Confirm Administered Dose 20 mls @ as directed .ROUTE .STK-MED ONE Stop: 01/17/19 04:43 Last Admin: 01/17/19 04:47 Dose: 20 mls/hr Magnesium Sulfate 2 gm/ Premix 50 mls @ 50 mls/hr IV ONETIME ONE Stop: 01/17/19 06:52 Last Admin: 01/17/19 06:00 Dose: 50 mls/hr Magnesium Sulfate (Magnesium Sulfate In Water Premix) Confirm Administered Dose 50 mls @ as directed .ROUTE .STK-MED ONE Stop: 01/17/19 05:57 Last Admin: 01/17/19 06:02 Dose: Not Given Ceftriaxone Sodium/Dextrose 1 (gm/ Premix) 50 mls @ 100 mls/hr IV ONETIME ONE Stop: 01/17/19 15:27 Last Admin: 01/17/19 16:16 Dose: 100 mls/hr Ceftriaxone Sodium/Dextrose 1 (gm/ Premix) 50 mls @ 100 mls/hr IV ONETIME ONE Stop: 01/17/19 16:44 Last Admin: 01/17/19 16:20 Dose: Not Given Magnesium Sulfate 2 gm/ Premix 50 mls @ 25 mls/hr IV ONETIME ONE Stop: 01/18/19 10:33 Last Admin: 01/18/19 10:27 Dose: 25 mls/hr Ceftriaxone Sodium/Dextrose 1 (gm/ Premix) 50 mls @ 100 mls/hr IV Q24H [facility] Last Admin: 01/18/19 09:50 Dose: 100 mls/hr Insulin Detemir (Levemir) 30 unit SUBCUT DAILY [facility] Last Admin: 01/18/19 09:30 Dose: 30 units Lactulose (Chronulac) 10 gm PO BID [facility] Last Admin: 01/18/19 08:14 Dose: 10 gm Levothyroxine Sodium (Levothyroxine) 75 mcg PO ACBREAKFAST [facility] Last Admin: 01/18/19 07:40 Dose: 75 mcg Morphine Sulfate (Morphine) 2 mg IVPUSH Q2H PRN PRN Reason: Pain (severe 7-10) Stop: 01/18/19 09:46 Last Admin: 01/18/19 03:15 Dose: 2 mg Nadolol (Naldol) 20 mg PO DAILY [facility] Last Admin: 01/18/19 08:13 Dose: 20 mg Omeprazole (Omeprazole) 40 mg PO WITHBREAKFAST [facility] Last Admin: 01/18/19 08:13 Dose: 40 mg Ondansetron HCl (Zofran) 4 mg IVPUSH ONETIME ONE Stop: 01/17/19 04:43 Last Admin: 01/17/19 04:48 Dose: 4 mg Ondansetron HCl (Zofran) Confirm Administered Dose 4 mg .ROUTE .STK-MED ONE Stop: 01/17/19 04:43 Last Admin: 01/17/19 04:48 Dose: Not Given Ondansetron HCl (Zofran Odt) 4 mg PO Q4H PRN PRN Reason: nausea, able to take PO Last Admin: 01/18/19 12:53 Dose: 4 mg Ondansetron HCl (Zofran) 4 mg IVPUSH Q4H PRN PRN Reason: Nausea Last Admin: 01/17/19 22:31 Dose: 4 mg Oxcarbazepine (Trileptal) 150 mg PO BID [facility] Last Admin: 01/18/19 08:14 Dose: 150 mg Oxycodone HCl (Oxycodone) 5 mg PO Q4H PRN PRN Reason: Pain (moderate 4-6) Last Admin: 01/18/19 12:53 Dose: 5 mg Pantoprazole Sodium (Protonix Iv) 80 mg IVPUSH .BOLUS ONE Stop: 01/17/19 04:43 Last Admin: 01/17/19 04:48 Dose: 80 mg Pantoprazole Sodium (Protonix Iv) Confirm Administered Dose 80 mg .ROUTE .STK -MED ONE Stop: 01/17/19 04:43 Last Admin: 01/17/19 04:48 Dose: Not Given Sodium Chloride (Saline Flush) 10 ml FLUSH ASDIRECTED PRN PRN Reason: Keep Vein Open Sodium Chloride (Saline Flush) 2.5 ml FLUSH ASDIRECTED PRN PRN Reason: Keep Vein Open Spironolactone (Aldactone) 50 mg PO BID [facility] Last Admin: 01/18/19 08:13 Dose: 50 mg Trazodone HCl (Trazodone Hcl) 50 mg PO BEDTIME PRN PRN Reason: Sleep Trazodone HCl (Trazodone) 50 mg PO BEDTIME PRN PRN Reason: Sleep Last Admin: 01/17/19 23:57 Dose: 50 mg - Free Text/Narrative Note: I have seen and evaluated the patient with the resident. I have discussed findings and treatment plan with the resident. I agree with the assessment and plan outlined in the following note.
[2019-01-18 11:27] VITALS: BP 127/73; PULSE 92
[2019-01-18] MEDS: Ondansetron 4 MG Tab.DIS PO PRN (12:53)
== END 2019-01-18 13:26 | disposition home or self-care (01) ==
LOC: MW.ED 04:35 → MW.MS 06:03
PROVIDERS: ADMIT Internal Medicine; ATTEND Internal Medicine
DX: K74.60 Unspecified cirrhosis of liver (principal); D64.9 Anemia, unspecified; D69.6 Thrombocytopenia, unspecified; E11.9 Type 2 diabetes mellitus without complications; E03.9 Hypothyroidism, unspecified; J45.909 Unspecified asthma, uncomplicated; B19.20 Unspecified viral hepatitis C without hepatic coma; F17.200 Nicotine dependence, unspecified, uncomplicated; F41.9 Anxiety disorder, unspecified; F31.9 Bipolar disorder, unspecified; N83.201 Unspecified ovarian cyst, right side; Z88.5 Allergy status to narcotic agent; Z79.4 Long term (current) use of insulin; Z79.899 Other long term (current) drug therapy
CPT/HCPCS: 36415; 74022; 74176; 80053; 80305; 81003; 82962; 83735; 83880; 85025; 85610; 86850; 86900; 86901; 87040; 93005; 96361; 96365; 96367; 96375; 96376; 99285; A9270; C9113; G0378; J0696; J1815; J1940; J2270; J2405; J3475; J7040; 86902; 86920; 86921; 86922

== ENCOUNTER 2019-02-06 21:02 | Emergency (ER) | payer MEDICARE, OTHER ==
[2019-02-06] MEDS ORDERED: Sodium Chloride 0.9% 2.5 ML Syringe FLUSH PRN (21:09)
[2019-02-06] MEDS ORDERED: Sodium Chloride 0.9% 10 ML Syringe FLUSH PRN (21:09)
[2019-02-06] MEDS ORDERED: Ondansetron 4 MG/2 ML SDV IVPUSH ONE (21:09)
[2019-02-06] MEDS ORDERED: Pantoprazole 40 MG Vial IVPUSH ONE (21:09)
[2019-02-06] MEDS ORDERED: Sodium Chloride 0.9% 1,000 ML IV ONE (21:09)
[2019-02-06] MEDS ORDERED: Sodium Chloride 0.9% 20 ML ONE (21:14)
[2019-02-06] MEDS ORDERED: Morphine 4 MG/ML Syringe IVPUSH ONE (21:18)
[2019-02-06] MEDS ORDERED: LORazepam 2 MG/ML SDV IVPUSH STA (21:19)
[2019-02-06] MEDS ORDERED: Tranexamic Acid 1,000 MG in Sodium Chloride 0.9% 100 ML IV ONE (21:23)
[2019-02-06] MEDS ORDERED: Octreotide 500 MCG in Sodium Chloride 0.9% 495 ML IV SCH (21:30)
--- NOTE | 2019-02-06 21:31 | EDM.PDOC ---
ED HPI GENERAL MEDICAL PROBLEM - General Chief Complaint: Gastrointestinal Problem Stated Complaint: ABD PAIN AND BLEEDING Time Seen by Provider: 02/06/19 21:05 - History of Present Illness INITIAL COMMENTS - FREE TEXT/NARRATIVE: HISTORY AND PHYSICAL: History of present illness: Patient's 43-year-old white female with an extensive past medical history including advanced liver disease esophageal varices GI bleed and medical noncompliance who presents with a concern of nausea vomiting and massive hematemesis patient had a episode of hematemesis in the emergency department that was approximately 1-2 L . Patient's initial vital signs were 110/58 pulse of 98 pulse ox 99% respirations of 22 large bore 18-gauge IVs were stable syndrome upper extremities 1 L saline bolus Protonix 80 mg IV type and cross for 4 units packed red blood cells. TXA, octreotide initiated Review of systems: As per history of present illness and below otherwise all systems reviewed and negative. Past medical history: As per history of present illness and as reviewed below otherwise noncontributory. Surgical history: As per history of present illness and as reviewed below otherwise noncontributory. Social history: See nursing notes Family history: As per history of present illness and as reviewed below otherwise noncontributory. Physical exam: HEENT: Atraumatic, normocephalic, pupils reactive, marked conjunctival pallor , mucous membranes moist, throat clear, neck supple, nontender, trachea midline. Lungs: Clear to auscultation, breath sounds equal bilaterally, chest nontender. Heart: S1S2, regular, negative for clicks, rubs, or JVD. Abdomen: Soft, protuberant with no localized tenderness. Negative for masses or hepatosplenomegaly. Negative for costovertebral tenderness. Pelvis: Stable nontender. Genitourinary: Deferred. Rectal: Deferred. Extremities: Atraumatic, negative for cords or calf pain. Neurovascular unremarkable. Neuro: Awake, alert, oriented. Follows commands moves all extremities limited grossly nonfocal exam Diagnostics: CBC CMP PT/INR troponin type and cross chest x-ray EKG Therapeutics: Saline 1 L bolus Protonix 80 mg IV Zofran 4 mg IV Ativan 1 mg IV morphine TXA octreotide IV Impression: #1 massive upper GI bleed #2 history of esophageal varices #3 profound anemia # 4 history of cancer liver disease Definitive disposition and diagnosis as appropriate pending reevaluation and review of above. - Related Data Allergies Allergy/AdvReac Type Severity Reaction Status Date / Time codeine Allergy Itching Verified 01/17/19 10:28 Home Meds: Home Meds traZODone 50 mg PO BEDTIME PRN 04/22/17 [History] Furosemide 40 mg PO BID 09/09/17 [History] OXcarbazepine [Oxcarbazepine] 150 mg PO BID 09/09/17 [History] Levothyroxine Sodium [Synthroid] 75 mcg PO ACBREAKFAST 10/01/17 [History] Nadolol [Corgard] 20 mg PO DAILY 10/01/17 [History] Diphenhyd/Lidocaine/Nystatin [Magic Mouthwash] 5 - 20 ml PO Q4HR PRN 12/13/18 [ History] Insulin Aspart [NovoLOG] 9 unit SUBCUT TIDAC 12/14/18 [History] Insulin Detemir [Levemir] 30 unit SUBCUT DAILY 12/14/18 [History] DULoxetine [Cymbalta] 30 mg PO DAILY 01/17/19 [History] Omeprazole 40 mg PO ACBREAKFAST 01/17/19 [History] Spironolactone 50 mg PO BID 01/17/19 [History] Lactulose [Chronulac] 10 gm PO BID 30 Days #60 cup 01/18/19 [Rx] Ondansetron [Zofran ODT] 4 mg PO Q6H PRN #30 tab.dis 01/18/19 [Rx] oxyCODONE 5 mg PO Q8H PRN #15 tablet 01/18/19 [Rx] Past Medical History - Past Health History Medical/Surgical History: Denies Medical/Surgical History HEENT History: Reports: Impaired Vision Cardiovascular History: Reports: Heart Murmur Other Cardiovascular History: Takes diuretics for portal HTN and swelling Respiratory History: Reports: Asthma Gastrointestinal History: Reports: Cholelithiasis, GI Bleed, Hepatitis, Other ( See Below) Other Gastrointestinal History: Gastric Ulcer, pancreatitis? 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: Musculoskeletal History: Reports: None Other Musculoskeletal History: Herniated disk, lumbar fracture, fractured right ankle Neurological History: Reports: Concussion, Other (See Below) Other Neuro History: Mild strokes 10 yrs ago Psychiatric History: Reports: Anxiety, Bipolar, Depression Endocrine/Metabolic History: Reports: Diabetes, Type II, Hypothyroidism Other Endocrine/Metabolic History: pt stated she was on thyroxine before but says to stop it a month ago Hematologic History: Reports: Anemia, Other (See Below) Other Hematologic History: Pt reports low white blood cell and platelet count. Immunologic History: Reports: None Other Immunologic History: Hep-c Oncologic (Cancer) History: Reports: None Dermatologic History: Reports: Urticaria - Infectious Disease History Infectious Disease History: Reports: Chicken Pox, Hepatitis C - Past Surgical History Head Surgeries/Procedures: Reports: None HEENT Surgical History: Reports: LASIK Respiratory Surgical History: Reports: None GI Surgical History: Reports: Cholecystectomy, EGD Female Surgical History: Reports: Section, Tubal Ligation Endocrine Surgical History: Reports: None Neurological Surgical History: Reports: Lumbar Spine Musculoskeletal Surgical History: Reports: Other (See Below) Other Musculoskeletal Surgeries/Procedures:: ankle surgery, back surgery Dermatological Surgical History: Reports: None Social & Family History - Family History Family Medical History: Noncontributory - Caffeine Use Caffeine Use: Reports: None Other Caffeine Use: occasional coffee, unsweetened tea ED ROS GENERAL - Review of Systems Review Of Systems: Comprehensive ROS is negative, except as noted in HPI. ED EXAM, GENERAL - Physical Exam Exam: See Below (See dictation) Course - Orders/Labs/Meds Orders: Active Orders 24 hr Category Date Time Status Cardiac Monitoring [RC] . DIRECTED Care 02/06/19 21:06 Active EKG Documentation Completion [RC] STAT Care 02/06/19 21:06 Active Oxygen Therapy, ED [RC] ASDIRECTED Care 02/06/19 21:06 Active Pulse Oximetry [RC] ASDIRECTED Care 02/06/19 21:06 Active Verify Patient Consent Obtain [RC] ASDIRECTED Care 02/06/19 21:11 Active Chest 1V Frontal [CR] Stat Exams 02/06/19 21:09 Ordered AMMONIA VENOUS [CHEM] Stat Lab 02/06/19 21:06 Ordered CBC WITH AUTO DIFF [HEME] Stat Lab 02/06/19 21:07 Ordered COMPREHENSIVE METABOLIC PN,CMP [CHEM] Stat Lab 02/06/19 21:07 Ordered ETHANOL BLOOD MEDICAL [CHEM] Stat Lab 02/06/19 21:07 Ordered INR,PT,PROTHROMBIN TIME [COAG] Stat Lab 02/06/19 21:07 Ordered LIPASE [CHEM] Stat Lab 02/06/19 21:07 Ordered RED BLOOD CELLS LP [BBK] Stat Lab 02/06/19 21:11 Ordered TROPONIN I [CHEM] Stat Lab 02/06/19 21:07 Ordered TYPE AND SCREEN [BBK] Stat Lab 02/06/19 21:11 Ordered Sodium Chloride 0.9% [Normal Saline] 1,000 ml Med 02/06/19 21:09 Active IV STAT Sodium Chloride 0.9% [Saline Flush] Med 02/06/19 21:09 Active 10 ml FLUSH ASDIRECTED PRN Sodium Chloride 0.9% [Saline Flush] Med 02/06/19 21:09 Active 2.5 ml FLUSH ASDIRECTED PRN Saline Lock Insert [OM.PC] Stat Oth 02/06/19 21:06 Ordered Transfuse Red Blood Cells [COMM] Stat Oth 02/06/19 21:11 Ordered Medication Orders Sodium Chloride (Normal Saline) 1,000 mls @ 999 mls/hr IV STAT ONE Stop: 02/06/19 22:09 Sodium Chloride (Saline Flush) 10 ml FLUSH ASDIRECTED PRN PRN Reason: Keep Vein Open Sodium Chloride (Saline Flush) 2.5 ml FLUSH ASDIRECTED PRN PRN Reason: Keep Vein Open Meds: Medications Generic Name Dose Route Start Last Admin Trade Name Freq PRN Reason Stop Dose Admin Sodium Chloride 1,000 mls @ 999 mls/hr 02/06/19 21:09 Normal Saline IV 02/06/19 22:09 STAT ONE Sodium Chloride 10 ml 02/06/19 21:09 Saline Flush FLUSH ASDIRECTED PRN Keep Vein Open Sodium Chloride 2.5 ml 02/06/19 21:09 Saline Flush FLUSH ASDIRECTED PRN Keep Vein Open Discontinued Medications Generic Name Dose Route Start Last Admin Trade Name Freq PRN Reason Stop Dose Admin Sodium Chloride Confirm 02/06/19 21:14 Normal Saline Administered 02/06/19 21:15 Dose 20 mls @ as directed .ROUTE .STK-MED ONE Ondansetron HCl 4 mg 02/06/19 21:09 Zofran IVPUSH 02/06/19 21:10 ONETIME ONE Pantoprazole Sodium 80 mg 02/06/19 21:09 Protonix Iv IVPUSH 02/06/19 21:10 .BOLUS ONE Departure - Departure Time of Disposition: 21:31 Disposition: DC/Tfer to Acute Hospital 02 Condition: Critical Clinical Impression: GI bleed Hematemesis Qualifiers: Nausea presence: with nausea Qualified Code(s): K92.0 - Hematemesis Esophageal varices Qualifiers: Esophageal varices type: unspecified type Esophageal varices bleeding: without bleeding Qualified Code(s): I85.00 - Esophageal varices without bleeding - Discharge Information - My Orders Last 24 Hours: My Active Orders 02/06/19 21:06 Cardiac Monitoring [RC] . DIRECTED EKG Documentation Completion [RC] STAT Oxygen Therapy, ED [RC] ASDIRECTED Pulse Oximetry [RC] ASDIRECTED AMMONIA VENOUS [CHEM] Stat Saline Lock Insert [OM.PC] Stat 02/06/19 21:07 CBC WITH AUTO DIFF [HEME] Stat COMPREHENSIVE METABOLIC PN,CMP [CHEM] Stat ETHANOL BLOOD MEDICAL [CHEM] Stat INR,PT,PROTHROMBIN TIME [COAG] Stat LIPASE [CHEM] Stat TROPONIN I [CHEM] Stat 02/06/19 21:09 Chest 1V Frontal [CR] Stat Sodium Chloride 0.9% [Normal Saline] 1,000 ml IV STAT Sodium Chloride 0.9% [Saline Flush] 10 ml FLUSH ASDIRECTED PRN Sodium Chloride 0.9% [Saline Flush] 2.5 ml FLUSH ASDIRECTED PRN - Assessment/Plan Last 24 Hours: My Active Orders 02/06/19 21:06 Cardiac Monitoring [RC] . DIRECTED EKG Documentation Completion [RC] STAT Oxygen Therapy, ED [RC] ASDIRECTED Pulse Oximetry [RC] ASDIRECTED AMMONIA VENOUS [CHEM] Stat Saline Lock Insert [OM.PC] Stat 02/06/19 21:07 CBC WITH AUTO DIFF [HEME] Stat COMPREHENSIVE METABOLIC PN,CMP [CHEM] Stat ETHANOL BLOOD MEDICAL [CHEM] Stat INR,PT,PROTHROMBIN TIME [COAG] Stat LIPASE [CHEM] Stat TROPONIN I [CHEM] Stat 02/06/19 21:09 Chest 1V Frontal [CR] Stat Sodium Chloride 0.9% [Normal Saline] 1,000 ml IV STAT Sodium Chloride 0.9% [Saline Flush] 10 ml FLUSH ASDIRECTED PRN Sodium Chloride 0.9% [Saline Flush] 2.5 ml FLUSH ASDIRECTED PRN
[2019-02-06 22:13] LABS: BLOOD UREA NITROGEN,BUN 18 mg/dL (7.0-18.0); CARBON DIOXIDE,CO2 25.8 mmol/L (21.0-32.0); CHLORIDE,CL 106 mmol/L (98-107); GLUCOSE RANDOM 184 mg/dL (74-106); POTASSIUM,K 4.2 mmol/L (3.5-5.1); SODIUM,NA 139 mmol/L (136-145)
--- NOTE | 2019-02-06 22:13 | CR ---
Indication: Hematemesis. Lethargy Technique: Chest 1 view Comparison: 12/07/2018 Findings/Impression: Cardiovascular and mediastinum: Stable cardiomediastinal silhouette. Lungs and pleural space: A rotated, expiratory study. The right apex is obscured by the patient`s chin. No consolidation or pleural effusions. Bones and soft tissues: No significant change. Dictated by Yovanny Charles MD @ 02/06/2019 10:09:02 PM Dictated by: Yovanny Charles MD @ 02/06/2019 22:10:59 (Electronically Signed)
[2019-02-06 22:22] LABS: LIPASE 157 U/L (73-393)
[2019-02-07 03:11] VITALS: BP 96/56; PULSE 97
== END 2019-02-06 21:50 ==
LOC: MW.ED 21:02
DX: K92.2 Gastrointestinal hemorrhage, unspecified (principal); K92.0 Hematemesis; I85.00 Esophageal varices without bleeding; J45.909 Unspecified asthma, uncomplicated; F31.9 Bipolar disorder, unspecified; F41.9 Anxiety disorder, unspecified; Z79.899 Other long term (current) drug therapy; Z88.5 Allergy status to narcotic agent
CPT/HCPCS: 36430; 71045; 80053; 82140; 83690; 84484; 85025; 85610; 86850; 86870; 86900; 86901; 86902; 86920; 86921; 86922; 93005; 96374; 96375; 99285; C9113; G0480; J2354; J2405; J7030; J7040; P9016; 99284; J7050

== ENCOUNTER 2019-03-13 11:40 | Observation (INO) | payer MEDICARE, OTHER ==
[2019-03-13] MEDS ORDERED: Pantoprazole 80 MG in Sodium Chloride 0.9% 20 ML IVPUSH ONE (11:51)
[2019-03-13] MEDS ORDERED: Sodium Chloride 0.9% 1,000 ML IV ONE (11:51)
[2019-03-13] MEDS ORDERED: Ondansetron 4 MG/2 ML SDV IVPUSH ONE (11:51)
--- NOTE | 2019-03-13 11:54 | EDM.PDOC ---
ED HPI GENERAL MEDICAL PROBLEM - General Chief Complaint: Gastrointestinal Problem Stated Complaint: ABD PAIN Time Seen by Provider: 03/13/19 11:53 Source of Information: Reports: Patient - History of Present Illness INITIAL COMMENTS - FREE TEXT/NARRATIVE: HISTORY AND PHYSICAL: History of present illness: [pt arrives via em[facility] pt with liver disease and h/o gi bleed in recent past presents with vomiting, pt states blood in vomit this am, as well as, stool containing blood nausea continue is ER however no vomiting at this time no f/v/c/s/cp/sob/balderas/d/[alp patient c/o abdominal pain 5/10 non radiating since this am ] Review of systems: As per history of present illness and below otherwise all systems reviewed and negative. Past medical history: As per history of present illness and as reviewed below otherwise noncontributory. Surgical history: As per history of present illness and as reviewed below otherwise noncontributory. Social history: No reported history of drug or alcohol abuse. Family history: As per history of present illness and as reviewed below otherwise noncontributory. Physical exam: HEENT: Atraumatic, normocephalic, pupils reactive, negative for conjunctival pallor or scleral icterus, mucous membranes moist, throat clear, neck supple, nontender, trachea midline. Lungs: Clear to auscultation, breath sounds equal bilaterally, chest nontender. Heart: S1S2, regular, negative for clicks, rubs, or JVD. Abdomen: Soft, nondistended, nontender. Negative for masses or hepatosplenomegaly. Negative for costovertebral tenderness. Pelvis: Stable nontender. Genitourinary: Deferred. Rectal: guaiac pos, no mass scar or lesion Extremities: Atraumatic, negative for cords or calf pain. Neurovascular unremarkable. Neuro: Awake, alert, oriented. Cranial nerves II through XII unremarkable. Cerebellum unremarkable. Motor and sensory unremarkable throughout. Exam nonfocal. Diagnostics: [cbc, cmp, ua, hcg, inr, lip type and screen, lactic acid, influenza abd/palvis ct w guaiac] Therapeutics: [ns protonix zofran morphine ] Impression: [coffee ground vomiting guaiac positive abd pain chronic hx baseline ] Definitive disposition and diagnosis as appropriate pending reevaluation and review of above. Abdominal Pain Pain Score (Numeric/FACES): 8 - Related Data Allergies Allergy/AdvReac Type Severity Reaction Status Date / Time codeine Allergy Itching Verified 03/13/19 11:49 Home Meds: Home Meds traZODone 50 mg PO BEDTIME PRN 04/22/17 [History] Furosemide 40 mg PO BID 09/09/17 [History] OXcarbazepine [Oxcarbazepine] 150 mg PO BID 09/09/17 [History] Levothyroxine Sodium [Synthroid] 75 mcg PO ACBREAKFAST 10/01/17 [History] Nadolol [Corgard] 20 mg PO DAILY 10/01/17 [History] Diphenhyd/Lidocaine/Nystatin [Magic Mouthwash] 5 - 20 ml PO Q4HR PRN 12/13/18 [ History] Insulin Aspart [NovoLOG] 9 unit SUBCUT TIDAC 12/14/18 [History] Insulin Detemir [Levemir] 30 unit SUBCUT DAILY 12/14/18 [History] DULoxetine [Cymbalta] 30 mg PO DAILY 01/17/19 [History] Omeprazole 40 mg PO ACBREAKFAST 01/17/19 [History] Spironolactone 50 mg PO BID 01/17/19 [History] Lactulose [Chronulac] 10 gm PO BID 30 Days #60 cup 01/18/19 [Rx] Ondansetron [Zofran ODT] 4 mg PO Q6H PRN #30 tab.dis 01/18/19 [Rx] oxyCODONE 5 mg PO Q8H PRN #15 tablet 01/18/19 [Rx] Past Medical History - Past Health History Medical/Surgical History: Denies Medical/Surgical History HEENT History: Reports: Impaired Vision Cardiovascular History: Reports: Heart Murmur Other Cardiovascular History: Takes diuretics for portal HTN and swelling Respiratory History: Reports: Asthma Gastrointestinal History: Reports: Cholelithiasis, GI Bleed, Hepatitis, Other ( See Below) Other Gastrointestinal History: Gastric Ulcer, pancreatitis? 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 Immunologic History: Reports: None Other Immunologic History: Hep-c Oncologic (Cancer) History: Reports: None Dermatologic History: Reports: Urticaria - Infectious Disease History Infectious Disease History: Reports: Chicken Pox, Hepatitis C - Past Surgical History Head Surgeries/Procedures: Reports: None HEENT Surgical History: Reports: LASIK Respiratory Surgical History: Reports: None GI Surgical History: Reports: Cholecystectomy, EGD Female Surgical History: Reports: Section, Tubal Ligation Endocrine Surgical History: Reports: None Neurological Surgical History: Reports: Lumbar Spine Musculoskeletal Surgical History: Reports: Other (See Below) Other Musculoskeletal Surgeries/Procedures:: ankle surgery, back surgery Dermatological Surgical History: Reports: None Social & Family History - Family History Family Medical History: Noncontributory - Caffeine Use Caffeine Use: Reports: None Other Caffeine Use: occasional coffee, unsweetened tea ED ROS GENERAL - Review of Systems Review Of Systems: See Below ED EXAM, GENERAL - Physical Exam Exam: See Below Course - Vital Signs Last Recorded V/S: Last Vital Signs Temp 98.3 F 03/13/19 11:49 Pulse 81 03/13/19 12:15 Resp 18 03/13/19 12:15 BP 97/49 L 03/13/19 12:15 Pulse Ox 97 03/13/19 12:15 - Orders/Labs/Meds Orders: Active Orders 24 hr Category Date Time Status Abdomen Pelvis w Cont [CT] Stat Exams 03/13/19 11:54 Taken ANTIBODY IDENTIFICATION [BBK] Stat Lab 03/13/19 12:08 Results CULTURE BLOOD [BC] Stat Lab 03/13/19 11:45 Received CULTURE BLOOD [BC] Stat Lab 03/13/19 12:08 Received Guaiac [OCCULT BLOOD DIAGNOSTIC] [OP] Stat Lab 03/13/19 11:54 Ordered HCG QUALITATIVE,URINE [URCHEM] Stat Lab 03/13/19 11:51 Ordered TYPE AND SCREEN [BBK] Stat Lab 03/13/19 12:08 Results UA RFX RICKIE AND CULT IF INDIC [URIN] Stat Lab 03/13/19 11:51 Ordered Blood Culture x2 Reflex Set [OM.PC] Stat Oth 03/13/19 11:59 Ordered Labs: Laboratory Tests 03/13/19 03/13/19 03/13/19 Range/Units 11:45 11:45 11:45 WBC 3.85 L (4.0-11.0) K/uL RBC 3.28 L (4.30-5.90) M/uL Hgb 9.2 L (12.0-16.0) g/dL Hct 28.6 L (36.0-46.0) % MCV 87.2 (80.0-98.0) fL MCH 28.0 (27.0-32.0) pg MCHC 32.2 (31.0-37.0) g/dL RDW Std Deviation 81.9 H (28.0-62.0) fl RDW Coeff of Jovan 26 H (11.0-15.0) % Plt Count 42 L (150-400) K/uL MPV (7.40-12.00) fL Neut % (Auto) 46.0 L (48.0-80.0) % Lymph % (Auto) 35.3 (16.0-40.0) % White % (Auto) 12.7 (0.0-15.0) % Eos % (Auto) 5.5 (0.0-7.0) % Baso % (Auto) 0.5 (0.0-1.5) % Neut # (Auto) 1.8 (1.4-5.7) K/uL Lymph # (Auto) 1.4 (0.6-2.4) K/uL White # (Auto) 0.5 (0.0-0.8) K/uL Eos # (Auto) 0.2 (0.0-0.7) K/uL Baso # (Auto) 0.0 (0.0-0.1) K/uL Nucleated RBC % 0.0 /100WBC Nucleated RBCs # 0 K/uL INR 1.52 Lactate (0.20-2.00) mmol/L Sodium 138 (136-145) mmol/L Potassium 4.6 (3.5-5.1) mmol/L Chloride 107 (98-107) mmol/L Carbon Dioxide 24.5 (21.0-32.0) mmol/L BUN 20 H (7.0-18.0) mg/dL Creatinine 0.8 (0.6-1.0) mg/dL Est Cr Clr Drug Dosing 89.08 mL/min Estimated GFR (MDRD) > 60.0 ml/min Glucose 157 H (74-106) mg/dL Calcium 7.4 L (8.5-10.1) mg/dL Total Bilirubin 2.0 H (0.2-1.0) mg/dL AST 90 H (15-37) IU/L ALT 63 (14-63) IU/L Alkaline Phosphatase 317 H (46-116) U/L Total Protein 6.4 (6.4-8.2) g/dL Albumin 2.1 L (3.4-5.0) g/dL Globulin 4.3 H (2.6-4.0) g/dL Albumin/Globulin Ratio 0.5 L (0.9-1.6) Blood Type Antibody Screen 03/13/19 03/13/19 Range/Units 11:45 12:08 WBC (4.0-11.0) K/uL RBC (4.30-5.90) M/uL Hgb (12.0-16.0) g/dL Hct (36.0-46.0) % MCV (80.0-98.0) fL MCH (27.0-32.0) pg MCHC (31.0-37.0) g/dL RDW Std Deviation (28.0-62.0) fl RDW Coeff of Jovan (11.0-15.0) % Plt Count (150-400) K/uL MPV (7.40-12.00) fL Neut % (Auto) (48.0-80.0) % Lymph % (Auto) (16.0-40.0) % White % (Auto) (0.0-15.0) % Eos % (Auto) (0.0-7.0) % Baso % (Auto) (0.0-1.5) % Neut # (Auto) (1.4-5.7) K/uL Lymph # (Auto) (0.6-2.4) K/uL White # (Auto) (0.0-0.8) K/uL Eos # (Auto) (0.0-0.7) K/uL Baso # (Auto) (0.0-0.1) K/uL Nucleated RBC % /100WBC Nucleated RBCs # K/uL INR Lactate 1.7 (0.20-2.00) mmol/L Sodium (136-145) mmol/L Potassium (3.5-5.1) mmol/L Chloride (98-107) mmol/L Carbon Dioxide (21.0-32.0) mmol/L BUN (7.0-18.0) mg/dL Creatinine (0.6-1.0) mg/dL Est Cr Clr Drug Dosing mL/min Estimated GFR (MDRD) ml/min Glucose (74-106) mg/dL Calcium (8.5-10.1) mg/dL Total Bilirubin (0.2-1.0) mg/dL AST (15-37) IU/L ALT (14-63) IU/L Alkaline Phosphatase (46-116) U/L Total Protein (6.4-8.2) g/dL Albumin (3.4-5.0) g/dL Globulin (2.6-4.0) g/dL Albumin/Globulin Ratio (0.9-1.6) Blood Type O POSITIVE Antibody Screen POSITIVE Meds: Medications Discontinued Medications Generic Name Dose Route Start Last Admin Trade Name Freq PRN Reason Stop Dose Admin Pantoprazole Sodium 80 mg/ 20 mls @ 420 mls/hr 03/13/19 11:51 03/13/19 12:04 Sodium Chloride IVPUSH 03/13/19 11:53 420 mls/hr ONETIME ONE Administration Sodium Chloride 1,000 mls @ 999 mls/hr 03/13/19 11:51 03/13/19 12:04 Normal Saline IV 03/13/19 12:51 999 mls/hr STAT ONE Administration Iopamidol 100 ml 03/13/19 13:12 03/13/19 13:13 Isovue Multipack-370 (76%) IVPUSH 03/13/19 13:13 100 ml ONETIME STA Administration Morphine Sulfate 2 mg 03/13/19 12:23 03/13/19 12:33 Morphine IVPUSH 03/13/19 12:24 2 mg ONETIME ONE Administration Ondansetron HCl 8 mg 03/13/19 11:51 03/13/19 12:05 Zofran IVPUSH 03/13/19 11:52 8 mg ONETIME ONE Administration Departure - Departure Time of Disposition: 13:35 Disposition: Home, Self-Care 01 Condition: Good Clinical Impression: GI bleeding Hematemesis Qualifiers: Nausea presence: with nausea Qualified Code(s): K92.0 - Hematemesis - Discharge Information Referrals: Philly Keith MD [Primary Care Provider] - Forms: ED Department Discharge Sepsis Event Note - Evaluation Sepsis Screening Result: No Definite Risk - Focused Exam Vital Signs: Vital Signs Temp Pulse Resp BP Pulse Ox 03/13/19 12:15 81 18 97/49 L 97 03/13/19 12:01 83 18 106/54 L 97 03/13/19 11:49 98.3 F 86 18 133/104 H 100 03/13/19 11:46 89 18 123/41 L 100 Date Exam was Performed: 03/13/19 Time Exam was Performed: 13:34 - My Orders Last 24 Hours: My Active Orders 03/13/19 11:45 CULTURE BLOOD [BC] Stat 03/13/19 11:51 HCG QUALITATIVE,URINE [URCHEM] Stat UA RFX RICKIE AND CULT IF INDIC [URIN] Stat 03/13/19 11:54 Abdomen Pelvis w Cont [CT] Stat Guaiac [OCCULT BLOOD DIAGNOSTIC] [OP] Stat 03/13/19 11:59 Blood Culture x2 Reflex Set [OM.PC] Stat 03/13/19 12:08 ANTIBODY IDENTIFICATION [BBK] Stat CULTURE BLOOD [BC] Stat TYPE AND SCREEN [BBK] Stat - Assessment/Plan Last 24 Hours: My Active Orders 03/13/19 11:45 CULTURE BLOOD [BC] Stat 03/13/19 11:51 HCG QUALITATIVE,URINE [URCHEM] Stat UA RFX RICKIE AND CULT IF INDIC [URIN] Stat 03/13/19 11:54 Abdomen Pelvis w Cont [CT] Stat Guaiac [OCCULT BLOOD DIAGNOSTIC] [OP] Stat 03/13/19 11:59 Blood Culture x2 Reflex Set [OM.PC] Stat 03/13/19 12:08 ANTIBODY IDENTIFICATION [BBK] Stat CULTURE BLOOD [BC] Stat TYPE AND SCREEN [BBK] Stat
[2019-03-13] MEDS ORDERED: Morphine 2 MG/ML Syringe IVPUSH ONE (12:23)
[2019-03-13 12:39] LABS: BLOOD UREA NITROGEN,BUN 20 mg/dL (7.0-18.0); CARBON DIOXIDE,CO2 24.5 mmol/L (21.0-32.0); CHLORIDE,CL 107 mmol/L (98-107); GLUCOSE RANDOM 157 mg/dL (74-106); POTASSIUM,K 4.6 mmol/L (3.5-5.1); SODIUM,NA 138 mmol/L (136-145)
[2019-03-13] MEDS ORDERED: Iopamidol 755 MG/ML 500 ML Multipack Bottle IVPUSH STA (13:12)
--- NOTE | 2019-03-13 13:53 | CT ---
CT abdomen and pelvis Technique: Multiple axial sections were obtained from above the dome of the diaphragm inferiorly through the pubic symphysis. Intravenous contrast was utilized. No oral contrast was utilized. Comparison: Prior CT abdomen and pelvis exam of 01/17/19. Findings: Visualized lung bases show nothing acute. Liver shows very slightly irregular contour compatible with cirrhosis. Liver is mildly generous in size. Spleen is enlarged with length of 15.9 cm. Mild amount of ascites identified within the abdomen. Moderate ascites is seen which is not as severe as on prior exam. Adrenal glands show no nodule. No discrete abnormality within the pancreas is seen. Kidneys show symmetric contrast enhancement without hydronephrosis. Small cyst is noted within the right kidney measuring 9 mm. Cyst is noted within the left kidney measuring 1.3 cm. Aorta shows no aneurysm. No retroperitoneal adenopathy is seen. No mesenteric abnormalities are seen. Appendix is felt to be partially visualized which appears normal in size. Cystic lesion is seen within the right side of the pelvis which indents the right side of the bladder. This cyst measures about 5.5 cm in size and is most likely is an ovarian cyst. No additional pelvic abnormality is seen. Bone window settings were reviewed which shows disc space narrowing most severe within the lower lumbar spine. No acute osseous finding is seen. Impression: 1. Cirrhotic change within the liver with splenomegaly. Mild amount ascites is seen. Ascites is not as severe as seen on prior CT exam. 2. 5.5 cm cyst which is most likely ovarian located on the right side of the pelvis. This appears to be without significant change from prior CT exam. 3. Small cysts within both kidneys. 4. Other findings believed to be incidental as noted above. Diagnostic code #3 This report was dictated in [place] [employer] Time
[2019-03-13] MEDS ORDERED: Ondansetron 4 MG/2 ML SDV IVPUSH PRN (14:43)
--- NOTE | 2019-03-13 14:47 | PCM.HP.2 ---
H&P History of Present Illness - General Date of Service: 03/13/19 Admit Problem/Dx: Admission Diagnosis/Problem Admission Diagnosis/Problem GI bleed not requiring more than 4 units of blood in 24 hours, ICU, or surgery Source of Information: Patient History Limitations: Reports: No Limitations - History of Present Illness Initial Comments - Free Text/Narative: This 43 year old female with pmh of variceal bleeding, alcoholic liver disease, cirrhosis secondary to alcohol use, and chronic hepatitis C presented to the ED with complaints of coffee ground emesis and black tarry diarrhea this morning. She reports she has been doing well since discharge from [facility] Feb 11 after she was transferred from our facility for suspected variceal bleed with sarah blood emesis of 1-2 L and hgb 4.3. She was transfused platelets, FFP and 6 units PRBCs. Surgical consult obtained, but no EGD completed due to thrombocytopenia. Last EGD August 2018 showed portal hypertensive gastropathy and in Jan 2018 it showed grade 2 esophageal varix that was banded. She denies any alcohol use and no recreational drug use. She has been compliant with Omeprazole at home. In the ED hgb 9.2, HCT 28.6, platelets 42,000, INR 1.52, Lactic acid 1.7, BUN 20 , Cr 0.8 Corrected Ca 8.9, Bilirubin 2.0, AST 90, ALT 63, alk phos 317. CT abdomen, shows moderate ascites with irregular contour liver and splenomegaly. Abdominal Pain Pain Score (Numeric/FACES): 8 - Related Data Allergies/Adverse Reactions: Allergies Allergy/AdvReac Type Severity Reaction Status Date / Time codeine Allergy Itching Verified 03/13/19 14:32 Home Medications: Home Meds traZODone 50 mg PO BEDTIME PRN 04/22/17 [History] Furosemide 40 mg PO BID 09/09/17 [History] OXcarbazepine [Oxcarbazepine] 150 mg PO BID 09/09/17 [History] Levothyroxine Sodium [Synthroid] 75 mcg PO ACBREAKFAST 10/01/17 [History] Nadolol [Corgard] 20 mg PO DAILY 10/01/17 [History] Diphenhyd/Lidocaine/Nystatin [Magic Mouthwash] 5 - 20 ml PO Q4HR PRN 12/13/18 [ History] Insulin Aspart [NovoLOG] 9 unit SUBCUT TIDAC 12/14/18 [History] Insulin Detemir [Levemir] 30 unit SUBCUT DAILY 12/14/18 [History] DULoxetine [Cymbalta] 30 mg PO DAILY 01/17/19 [History] Omeprazole 40 mg PO ACBREAKFAST 01/17/19 [History] Spironolactone 50 mg PO BID 01/17/19 [History] Lactulose [Chronulac] 10 gm PO BID 30 Days #60 cup 01/18/19 [Rx] Ondansetron [Zofran ODT] 4 mg PO Q6H PRN #30 tab.dis 01/18/19 [Rx] oxyCODONE 5 mg PO Q8H PRN #15 tablet 01/18/19 [Rx] Past Medical History - Past Health History Medical/Surgical History: Denies Medical/Surgical History HEENT History: Reports: Impaired Vision Cardiovascular History: Reports: Heart Murmur Other Cardiovascular History: Takes diuretics for portal HTN and swelling Respiratory History: Reports: Asthma Gastrointestinal History: Reports: Cholelithiasis, GI Bleed, Hepatitis, Other ( See Below) Other Gastrointestinal History: Gastric Ulcer, pancreatitis? and ileius Genitourinary History: Reports: UTI, Recurrent CLOTH PIECER History: Reports: Musculoskeletal History: Reports: None Other Musculoskeletal History: Herniated disk, lumbar fracture, fractured right ankle Neurological History: Reports: Concussion, Other (See Below) Other Neuro History: Mild strokes 10 yrs ago Psychiatric History: Reports: Anxiety, Bipolar, Depression Endocrine/Metabolic History: Reports: Diabetes, Type II, Hypothyroidism Other Endocrine/Metabolic History: pt stated she was on thyroxine before but says to stop it a month ago Insulin Pump Model and Fitter Up: None Hematologic History: Reports: Anemia, Other (See Below) Other Hematologic History: Pt reports low white blood cell and platelet count. Immunologic History: Reports: None Other Immunologic History: Hep-c Oncologic (Cancer) History: Reports: None Dermatologic History: Reports: Urticaria - Infectious Disease History Infectious Disease History: Reports: Chicken Pox, Hepatitis C - Past Surgical History Head Surgeries/Procedures: Reports: None HEENT Surgical History: Reports: LASIK Respiratory Surgical History: Reports: None GI Surgical History: Reports: Cholecystectomy, EGD Female Surgical History: Reports: Section, Tubal Ligation Endocrine Surgical History: Reports: None Neurological Surgical History: Reports: Lumbar Spine Musculoskeletal Surgical History: Reports: Other (See Below) Other Musculoskeletal Surgeries/Procedures:: ankle surgery, back surgery Dermatological Surgical History: Reports: None Social & Family History - Family History Family Medical History: Noncontributory - Tobacco Use Smoking Status *Q: Unknown Ever Smoked - Caffeine Use Caffeine Use: Reports: None Other Caffeine Use: occasional coffee, unsweetened tea - Alcohol Use Alcohol Use History: Yes - Recreational Drug Use Recreational Drug Use: No - Living Situation & Occupation Occupation: Disabled H&P Review of Systems - Review of Systems: Review Of Systems: See Below General: Reports: Malaise, Fatigue. Denies: Fever, Chills Pulmonary: Reports: No Symptoms. Denies: Shortness of Breath Cardiovascular: Reports: No Symptoms. Denies: Chest Pain Gastrointestinal: Reports: Abdominal Pain, Black Stool, Other (coffee ground emesis) Genitourinary: Reports: No Symptoms. Denies: Dysuria, Frequency, Burning Musculoskeletal: Reports: Foot Pain (bilateral) Skin: Reports: No Symptoms Neurological: Reports: No Symptoms. Denies: Confusion Hematologic/Lymphatic: Reports: Anemia, Easy Bleeding Immunologic: Reports: No Symptoms Exam - Exam Exam: See Below - Vital Signs Vital Signs: Last Vital Signs Temp 98.3 F 03/13/19 11:49 Pulse 82 03/13/19 13:30 Resp 17 03/13/19 13:00 BP 103/59 L 03/13/19 13:30 Pulse Ox 97 03/13/19 13:30 Weight: 83.915 kg - Exam General: Alert, Oriented, Cooperative Neck: Supple Lungs: Clear to Auscultation, Normal Respiratory Effort Cardiovascular: Regular Rate, Regular Rhythm, Normal S1, Normal S2 GI/Abdominal Exam: Normal Bowel Sounds, Soft, Hepatomegaly, Splenomegaly, Other (ascites noted) Extremities: Normal Inspection, Normal Range of Motion, Non-Tender, Pedal Edema (+3 non pitting edema, reports they are improved.) Neuro Extensive - Motor, Sensory, Reflexes: CN II-XII Intact Psychiatric: Alert, Normal Affect, Normal Mood - Patient Data Lab Results Last 24 hrs: Laboratory Results - last 24 hr 03/13/19 03/13/19 03/13/19 Range/Units 11:45 11:45 11:45 WBC 3.85 L (4.0-11.0) K/uL RBC 3.28 L (4.30-5.90) M/uL Hgb 9.2 L (12.0-16.0) g/dL Hct 28.6 L (36.0-46.0) % MCV 87.2 (80.0-98.0) fL MCH 28.0 (27.0-32.0) pg MCHC 32.2 (31.0-37.0) g/dL RDW Std Deviation 81.9 H (28.0-62.0) fl RDW Coeff of Jovan 26 H (11.0-15.0) % Plt Count 42 L (150-400) K/uL MPV (7.40-12.00) fL Neut % (Auto) 46.0 L (48.0-80.0) % Lymph % (Auto) 35.3 (16.0-40.0) % Walton % (Auto) 12.7 (0.0-15.0) % Eos % (Auto) 5.5 (0.0-7.0) % Baso % (Auto) 0.5 (0.0-1.5) % Neut # (Auto) 1.8 (1.4-5.7) K/uL Lymph # (Auto) 1.4 (0.6-2.4) K/uL Walton # (Auto) 0.5 (0.0-0.8) K/uL Eos # (Auto) 0.2 (0.0-0.7) K/uL Baso # (Auto) 0.0 (0.0-0.1) K/uL Nucleated RBC % 0.0 /100WBC Nucleated RBCs # 0 K/uL INR 1.52 Lactate (0.20-2.00) mmol/L Sodium 138 (136-145) mmol/L Potassium 4.6 (3.5-5.1) mmol/L Chloride 107 (98-107) mmol/L Carbon Dioxide 24.5 (21.0-32.0) mmol/L BUN 20 H (7.0-18.0) mg/dL Creatinine 0.8 (0.6-1.0) mg/dL Est Cr Clr Drug Dosing 89.08 mL/min Estimated GFR (MDRD) > 60.0 ml/min Glucose 157 H (74-106) mg/dL Calcium 7.4 L (8.5-10.1) mg/dL Total Bilirubin 2.0 H (0.2-1.0) mg/dL AST 90 H (15-37) IU/L ALT 63 (14-63) IU/L Alkaline Phosphatase 317 H (46-116) U/L Total Protein 6.4 (6.4-8.2) g/dL Albumin 2.1 L (3.4-5.0) g/dL Globulin 4.3 H (2.6-4.0) g/dL Albumin/Globulin Ratio 0.5 L (0.9-1.6) Blood Type Antibody Screen Antibody Identification Crossmatch 03/13/19 03/13/19 03/13/19 Range/Units 11:45 12:08 12:08 WBC (4.0-11.0) K/uL RBC (4.30-5.90) M/uL Hgb (12.0-16.0) g/dL Hct (36.0-46.0) % MCV (80.0-98.0) fL MCH (27.0-32.0) pg MCHC (31.0-37.0) g/dL RDW Std Deviation (28.0-62.0) fl RDW Coeff of Jovan (11.0-15.0) % Plt Count (150-400) K/uL MPV (7.40-12.00) fL Neut % (Auto) (48.0-80.0) % Lymph % (Auto) (16.0-40.0) % Walton % (Auto) (0.0-15.0) % Eos % (Auto) (0.0-7.0) % Baso % (Auto) (0.0-1.5) % Neut # (Auto) (1.4-5.7) K/uL Lymph # (Auto) (0.6-2.4) K/uL Walton # (Auto) (0.0-0.8) K/uL Eos # (Auto) (0.0-0.7) K/uL Baso # (Auto) (0.0-0.1) K/uL Nucleated RBC % /100WBC Nucleated RBCs # K/uL INR Lactate 1.7 (0.20-2.00) mmol/L Sodium (136-145) mmol/L Potassium (3.5-5.1) mmol/L Chloride (98-107) mmol/L Carbon Dioxide (21.0-32.0) mmol/L BUN (7.0-18.0) mg/dL Creatinine (0.6-1.0) mg/dL Est Cr Clr Drug Dosing mL/min Estimated GFR (MDRD) ml/min Glucose (74-106) mg/dL Calcium (8.5-10.1) mg/dL Total Bilirubin (0.2-1.0) mg/dL AST (15-37) IU/L ALT (14-63) IU/L Alkaline Phosphatase (46-116) U/L Total Protein (6.4-8.2) g/dL Albumin (3.4-5.0) g/dL Globulin (2.6-4.0) g/dL Albumin/Globulin Ratio (0.9-1.6) Blood Type O POSITIVE Antibody Screen POSITIVE Antibody Identification Anti-E Crossmatch See Detail Result Diagrams: 03/13/19 11:45 03/13/19 11:45 Jason Results Last 24 hrs: Microbiology 03/13/19 12:35 Influenza Type A Antigen Screen - Final Nasopharyngeal Swab NEGATIVE INFLUENZA A VIRUS AG REFERENCE RANGE: NEGATIVE Influenza Type B Antigen Screen - Final NEGATIVE INFLUENZA B VIRUS AG REFERENCE RANGE: NEGATIVE Sepsis Event Note - Evaluation Sepsis Screening Result: No Definite Risk - Focused Exam Vital Signs: Vital Signs Temp Pulse Resp BP Pulse Ox 03/13/19 13:30 82 103/59 L 97 03/13/19 13:00 82 17 108/57 L 99 03/13/19 12:30 87 17 98/58 L 98 03/13/19 12:15 81 18 97/49 L 97 03/13/19 12:01 83 18 106/54 L 97 03/13/19 11:49 98.3 F 86 18 133/104 H 100 03/13/19 11:46 89 18 123/41 L 100 Date Exam was Performed: 03/13/19 Time Exam was Performed: 16:17 *Q Meaningful Use (ADM) - VTE *Q VTE Pharmacological Contraindications *Q: Risk of Bleeding - Problem List (1) Hematemesis SNOMED Code(s): 4825904 ICD Code: K92.0 - HEMATEMESIS Status: Acute Current Visit: Yes Qualifiers: Nausea presence: with nausea Qualified Code(s): K92.0 - Hematemesis (2) Thrombocytopenia SNOMED Code(s): 176693744 ICD Code: D69.6 - THROMBOCYTOPENIA, UNSPECIFIED Status: Chronic Current Visit: Yes (3) Alcoholic cirrhosis of liver with ascites SNOMED Code(s): 784858339, 728124463 ICD Code: K70.31 - ALCOHOLIC CIRRHOSIS OF LIVER WITH ASCITES Status: Chronic Current Visit: Yes (4) Abdominal pain SNOMED Code(s): 06120184 ICD Code: R10.9 - UNSPECIFIED ABDOMINAL PAIN Status: Chronic Current Visit: No Qualifiers: Abdominal location: generalized Qualified Code(s): R10.84 - Generalized abdominal pain (5) History of bipolar disorder SNOMED Code(s): 439146760 ICD Code: Z86.59 - PERSONAL HISTORY OF OTHER MENTAL AND BEHAVIORAL DISORDERS Status: Chronic Current Visit: No (6) History of depression SNOMED Code(s): 760585088 ICD Code: Z86.59 - PERSONAL HISTORY OF OTHER MENTAL AND BEHAVIORAL DISORDERS Status: Chronic Current Visit: No (7) Chronic hepatitis C SNOMED Code(s): 232841648 ICD Code: B18.2 - CHRONIC VIRAL HEPATITIS C Status: Chronic Current Visit : No (8) Cirrhosis SNOMED Code(s): 09758011 ICD Code: K74.60 - UNSPECIFIED CIRRHOSIS OF LIVER Status: Chronic Current Visit: No Qualifiers: Hepatic cirrhosis type: alcoholic cirrhosis Ascites presence: with ascites Qualified Code(s): K70.31 - Alcoholic cirrhosis of liver with ascites (9) DM type 2 (diabetes mellitus, type 2) SNOMED Code(s): 79777907 ICD Code: E11.9 - TYPE 2 DIABETES MELLITUS WITHOUT COMPLICATIONS Status: Chronic Current Visit: No Qualifiers: Diabetes mellitus assisted insulin use: with intermodal truck driver use Diabetes mellitus complication status: without complication Qualified Code(s): E11.9 - Type 2 diabetes mellitus without complications; Z79.4 - manager intermediate (current) use of insulin (10) Esophageal varices SNOMED Code(s): 41802304 ICD Code: I85.00 - ESOPHAGEAL VARICES WITHOUT BLEEDING Status: Chronic Current Visit: No Qualifiers: Esophageal varices type: unspecified type Esophageal varices bleeding: without bleeding Qualified Code(s): I85.00 - Esophageal varices without bleeding Problem List Initiated/Reviewed/Updated: Yes Orders Last 24hrs: Active Orders 24 hr Category Date Time Status Admission Status [Patient Status] [ADT] Stat ADT 03/13/19 13:35 Active Verify Patient Consent Obtain [RC] ASDIRECTED Care 03/13/19 14:37 Ordered CULTURE BLOOD [BC] Stat Lab 03/13/19 11:45 Received CULTURE BLOOD [BC] Stat Lab 03/13/19 12:08 Received Guaiac [OCCULT BLOOD DIAGNOSTIC] [OP] Stat Lab 03/13/19 11:54 Ordered HCG QUALITATIVE,URINE [URCHEM] Stat Lab 03/13/19 11:51 Ordered HEMOGLOBIN/HEMATOCRIT,HH [HEME] Timed Lab 03/13/19 18:00 Ordered PLATELETS APH [BBK] Routine Lab 03/13/19 14:37 Ordered RED BLOOD CELLS LP [BBK] Routine Lab 03/13/19 12:08 Results UA RFX JASON AND CULT IF INDIC [URIN] Stat Lab 03/13/19 11:51 Ordered Morphine Med 03/13/19 14:43 Ordered 2 mg IVPUSH Q4H PRN Ondansetron [Zofran] Med 03/13/19 14:43 Ordered 4 mg IVPUSH Q4H PRN Pantoprazole [ProTONIX IV] 40 mg Med 03/13/19 21:00 Ordered Sodium Chloride 0.9% [Normal Saline] 10 ml IV Q12H Blood Culture x2 Reflex Set [OM.PC] Stat Oth 03/13/19 11:59 Ordered Medication Orders Pantoprazole Sodium 40 mg/ (Sodium Chloride) 10 mls @ 300 mls/hr IV Q12H JOYCE Morphine Sulfate (Morphine) 2 mg IVPUSH Q4H PRN PRN Reason: Pain Ondansetron HCl (Zofran) 4 mg IVPUSH Q4H PRN PRN Reason: Nausea Assessment/Plan Comment:: This 43 year old female admitted with upper GI bleeding and hx of alcoholic liver cirrhosis 1. Upper GI bleeding: No further emesis since admission, hgb stable, will recheck this evening. NPO currently. PPI IV BID. Will monitor closely. Did discuss with Dr Wood, with history of varices and thrombocytopenia, she would not perform EGD in our facility. She would recommend transfer if hgb drops and bleeding reoccurs. 2. Thrombocytopenia: Will obtain 2 units platelets and transfuse when available. 3. Alcoholic liver cirrhosis: Continue Lasix, Aldactone, Nadolol. Monitor. LFTS and INR stable. 4. Chronic pain: Stable, continue Oxycodone PRN, Morphine PRN if needed for intermittent pain. VTE prophylaxis: SCDs and ambulation Dispo: 2 days - Mortality Measure Prognosis:: Good
[2019-03-13] MEDS: Morphine 2 MG/ML Syringe IVPUSH PRN ×2 (14:55→18:45)
[2019-03-13] MEDS ORDERED: oxyCODONE 5 MG Tab PO PRN (15:44)
[2019-03-13] MEDS ORDERED: traZODone 50 MG Tab PO PRN (15:44)
[2019-03-13] MEDS ORDERED: Insulin Aspart 100 Units/ML 3 ML Pen SUBCUT SCH (15:45)
--- NOTE | 2019-03-13 19:34 | PCM.PN ---
- General Info Date of Service: 03/13/19 Subjective Update: Subjective: 43 y/o female w/ PMH of alcoholic liver cirrhosis and chronic Hep-C and past recent history of upper GI bleed requiring multi-unit transfusions and platelets Patient seen at bedside endorsing increasing pain. Crying p/e: abdomen tender to palpation. no rebound tenderness Heart: regular rhythm. Tachycardic Abdomen: Diffusely tender. no rebound tenderness. Labs: repeat H&H since admission showed decrease of Hgb from 9.[address] abdomen: cirrhotic changes w/ splenomegaly . Minimal ascites Discussed current presentation w/ patient and ; recommended transfusion of blood and transfer to [facility] for higher level of care. Contacted Dr Cannon of [place]/ ER physician. Discussed need for EGD; pt requires platelets prior to EGD ;[facility] will not have till tomorrow. Dr Cannon graciously accepted care; pt. will be transferred via ground ambulance w. ALS. Patient understood plan. all questions answered. Repeat vitals; pt. hemodynamically stable during transfer process. - Patient Data Vitals - Most Recent: Last Vital Signs Temp 98.3 F 03/13/19 11:49 Pulse 82 03/13/19 13:30 Resp 17 03/13/19 13:00 BP 103/59 L 03/13/19 13:30 Pulse Ox 96 03/13/19 15:12 Weight - Most Recent: 185 lb I&O - Last 24 Hours: Intake & Output 03/13/19 03/13/19 03/13/19 06:59 14:59 22:59 Intake Total 50 Output Total 400 Balance -350 Lab Results Last 24 Hours: Laboratory Results - last 24 hr 03/13/19 03/13/19 03/13/19 Range/Units 11:45 11:45 11:45 WBC 3.85 L (4.0-11.0) K/uL RBC 3.28 L (4.30-5.90) M/uL Hgb 9.2 L (12.0-16.0) g/dL Hct 28.6 L (36.0-46.0) % MCV 87.2 (80.0-98.0) fL MCH 28.0 (27.0-32.0) pg MCHC 32.2 (31.0-37.0) g/dL RDW Std Deviation 81.9 H (28.0-62.0) fl RDW Coeff of Jovan 26 H (11.0-15.0) % Plt Count 42 L (150-400) K/uL MPV (7.40-12.00) fL Neut % (Auto) 46.0 L (48.0-80.0) % Lymph % (Auto) 35.3 (16.0-40.0) % Kings % (Auto) 12.7 (0.0-15.0) % Eos % (Auto) 5.5 (0.0-7.0) % Baso % (Auto) 0.5 (0.0-1.5) % Neut # (Auto) 1.8 (1.4-5.7) K/uL Lymph # (Auto) 1.4 (0.6-2.4) K/uL Kings # (Auto) 0.5 (0.0-0.8) K/uL Eos # (Auto) 0.2 (0.0-0.7) K/uL Baso # (Auto) 0.0 (0.0-0.1) K/uL Nucleated RBC % 0.0 /100WBC Nucleated RBCs # 0 K/uL INR 1.52 Lactate (0.20-2.00) mmol/L Sodium 138 (136-145) mmol/L Potassium 4.6 (3.5-5.1) mmol/L Chloride 107 (98-107) mmol/L Carbon Dioxide 24.5 (21.0-32.0) mmol/L BUN 20 H (7.0-18.0) mg/dL Creatinine 0.8 (0.6-1.0) mg/dL Est Cr Clr Drug Dosing 89.08 mL/min Estimated GFR (MDRD) > 60.0 ml/min Glucose 157 H (74-106) mg/dL POC Glucose (60-110) mg/dL Calcium 7.4 L (8.5-10.1) mg/dL Total Bilirubin 2.0 H (0.2-1.0) mg/dL AST 90 H (15-37) IU/L ALT 63 (14-63) IU/L Alkaline Phosphatase 317 H (46-116) U/L Ammonia (19-54) ug/dL Total Protein 6.4 (6.4-8.2) g/dL Albumin 2.1 L (3.4-5.0) g/dL Globulin 4.3 H (2.6-4.0) g/dL Albumin/Globulin Ratio 0.5 L (0.9-1.6) Urine Color Urine Appearance Urine pH (5.0-8.0) Ur Specific Fairburn (1.001-1.035) Urine Protein (NEGATIVE) mg/dL Urine Glucose (UA) (NEGATIVE) mg/dL Urine Ketones (NEGATIVE) mg/dL Urine Occult Blood (NEGATIVE) Urine Nitrite (NEGATIVE) Urine Bilirubin (NEGATIVE) Urine Urobilinogen (<2.0) EU/dL Ur Leukocyte Esterase (NEGATIVE) Urine HCG, Qual (NEGATIVE) Blood Type Antibody Screen Antibody Identification Crossmatch 03/13/19 03/13/19 03/13/19 Range/Units 11:45 12:08 12:08 WBC (4.0-11.0) K/uL RBC (4.30-5.90) M/uL Hgb (12.0-16.0) g/dL Hct (36.0-46.0) % MCV (80.0-98.0) fL MCH (27.0-32.0) pg MCHC (31.0-37.0) g/dL RDW Std Deviation (28.0-62.0) fl RDW Coeff of Jovan (11.0-15.0) % Plt Count (150-400) K/uL MPV (7.40-12.00) fL Neut % (Auto) (48.0-80.0) % Lymph % (Auto) (16.0-40.0) % Kings % (Auto) (0.0-15.0) % Eos % (Auto) (0.0-7.0) % Baso % (Auto) (0.0-1.5) % Neut # (Auto) (1.4-5.7) K/uL Lymph # (Auto) (0.6-2.4) K/uL Kings # (Auto) (0.0-0.8) K/uL Eos # (Auto) (0.0-0.7) K/uL Baso # (Auto) (0.0-0.1) K/uL Nucleated RBC % /100WBC Nucleated RBCs # K/uL INR Lactate 1.7 (0.20-2.00) mmol/L Sodium (136-145) mmol/L Potassium (3.5-5.1) mmol/L Chloride (98-107) mmol/L Carbon Dioxide (21.0-32.0) mmol/L BUN (7.0-18.0) mg/dL Creatinine (0.6-1.0) mg/dL Est Cr Clr Drug Dosing mL/min Estimated GFR (MDRD) ml/min Glucose (74-106) mg/dL POC Glucose (60-110) mg/dL Calcium (8.5-10.1) mg/dL Total Bilirubin (0.2-1.0) mg/dL AST (15-37) IU/L ALT (14-63) IU/L Alkaline Phosphatase (46-116) U/L Ammonia (19-54) ug/dL Total Protein (6.4-8.2) g/dL Albumin (3.4-5.0) g/dL Globulin (2.6-4.0) g/dL Albumin/Globulin Ratio (0.9-1.6) Urine Color Urine Appearance Urine pH (5.0-8.0) Ur Specific [place] (1.001-1.035) Urine Protein (NEGATIVE) mg/dL Urine Glucose (UA) (NEGATIVE) mg/dL Urine Ketones (NEGATIVE) mg/dL Urine Occult Blood (NEGATIVE) Urine Nitrite (NEGATIVE) Urine Bilirubin (NEGATIVE) Urine Urobilinogen (<2.0) EU/dL Ur Leukocyte Esterase (NEGATIVE) Urine HCG, Qual (NEGATIVE) Blood Type O POSITIVE Antibody Screen POSITIVE Antibody Identification Anti-E Crossmatch See Detail 03/13/19 03/13/19 03/13/19 Range/Units 14:35 14:35 16:50 WBC (4.0-11.0) K/uL RBC (4.30-5.90) M/uL Hgb (12.0-16.0) g/dL Hct (36.0-46.0) % MCV (80.0-98.0) fL MCH (27.0-32.0) pg MCHC (31.0-37.0) g/dL RDW Std Deviation (28.0-62.0) fl RDW Coeff of Jovan (11.0-15.0) % Plt Count (150-400) K/uL MPV (7.40-12.00) fL Neut % (Auto) (48.0-80.0) % Lymph % (Auto) (16.0-40.0) % Kings % (Auto) (0.0-15.0) % Eos % (Auto) (0.0-7.0) % Baso % (Auto) (0.0-1.5) % Neut # (Auto) (1.4-5.7) K/uL Lymph # (Auto) (0.6-2.4) K/uL Kings # (Auto) (0.0-0.8) K/uL Eos # (Auto) (0.0-0.7) K/uL Baso # (Auto) (0.0-0.1) K/uL Nucleated RBC % /100WBC Nucleated RBCs # K/uL INR Lactate (0.20-2.00) mmol/L Sodium (136-145) mmol/L Potassium (3.5-5.1) mmol/L Chloride (98-107) mmol/L Carbon Dioxide (21.0-32.0) mmol/L BUN (7.0-18.0) mg/dL Creatinine (0.6-1.0) mg/dL Est Cr Clr Drug Dosing mL/min Estimated GFR (MDRD) ml/min Glucose (74-106) mg/dL POC Glucose 156 H (60-110) mg/dL Calcium (8.5-10.1) mg/dL Total Bilirubin (0.2-1.0) mg/dL AST (15-37) IU/L ALT (14-63) IU/L Alkaline Phosphatase (46-116) U/L Ammonia (19-54) ug/dL Total Protein (6.4-8.2) g/dL Albumin (3.4-5.0) g/dL Globulin (2.6-4.0) g/dL Albumin/Globulin Ratio (0.9-1.6) Urine Color YELLOW Urine Appearance CLEAR Urine pH 7.5 (5.0-8.0) Ur Specific [place] 1.015 (1.001-1.035) Urine Protein NEGATIVE (NEGATIVE) mg/dL Urine Glucose (UA) NEGATIVE (NEGATIVE) mg/dL Urine Ketones NEGATIVE (NEGATIVE) mg/dL Urine Occult Blood NEGATIVE (NEGATIVE) Urine Nitrite NEGATIVE (NEGATIVE) Urine Bilirubin NEGATIVE (NEGATIVE) Urine Urobilinogen 1.0 (<2.0) EU/dL Ur Leukocyte Esterase NEGATIVE (NEGATIVE) Urine HCG, Qual NEGATIVE (NEGATIVE) Blood Type Antibody Screen Antibody Identification Crossmatch 03/13/19 03/13/19 Range/Units 18:01 18:01 WBC (4.0-11.0) K/uL RBC (4.30-5.90) M/uL Hgb 7.7 L (12.0-16.0) g/dL Hct 23.9 L (36.0-46.0) % MCV (80.0-98.0) fL MCH (27.0-32.0) pg MCHC (31.0-37.0) g/dL RDW Std Deviation (28.0-62.0) fl RDW Coeff of Jovan (11.0-15.0) % Plt Count (150-400) K/uL MPV (7.40-12.00) fL Neut % (Auto) (48.0-80.0) % Lymph % (Auto) (16.0-40.0) % Kings % (Auto) (0.0-15.0) % Eos % (Auto) (0.0-7.0) % Baso % (Auto) (0.0-1.5) % Neut # (Auto) (1.4-5.7) K/uL Lymph # (Auto) (0.6-2.4) K/uL Kings # (Auto) (0.0-0.8) K/uL Eos # (Auto) (0.0-0.7) K/uL Baso # (Auto) (0.0-0.1) K/uL Nucleated RBC % /100WBC Nucleated RBCs # K/uL INR Lactate (0.20-2.00) mmol/L Sodium (136-145) mmol/L Potassium (3.5-5.1) mmol/L Chloride (98-107) mmol/L Carbon Dioxide (21.0-32.0) mmol/L BUN (7.0-18.0) mg/dL Creatinine (0.6-1.0) mg/dL Est Cr Clr Drug Dosing mL/min Estimated GFR (MDRD) ml/min Glucose (74-106) mg/dL POC Glucose (60-110) mg/dL Calcium (8.5-10.1) mg/dL Total Bilirubin (0.2-1.0) mg/dL AST (15-37) IU/L ALT (14-63) IU/L Alkaline Phosphatase (46-116) U/L Ammonia 172 H (19-54) ug/dL Total Protein (6.4-8.2) g/dL Albumin (3.4-5.0) g/dL Globulin (2.6-4.0) g/dL Albumin/Globulin Ratio (0.9-1.6) Urine Color Urine Appearance Urine pH (5.0-8.0) Ur Specific [place]burn (1.001-1.035) Urine Protein (NEGATIVE) mg/dL Urine Glucose (UA) (NEGATIVE) mg/dL Urine Ketones (NEGATIVE) mg/dL Urine Occult Blood (NEGATIVE) Urine Nitrite (NEGATIVE) Urine Bilirubin (NEGATIVE) Urine Urobilinogen (<2.0) EU/dL Ur Leukocyte Esterase (NEGATIVE) Urine HCG, Qual (NEGATIVE) Blood Type Antibody Screen Antibody Identification Crossmatch Jason Results Last 24 Hours: Microbiology 03/13/19 12:35 Influenza Type A Antigen Screen - Final Nasopharyngeal Swab NEGATIVE INFLUENZA A VIRUS AG REFERENCE RANGE: NEGATIVE Influenza Type B Antigen Screen - Final NEGATIVE INFLUENZA B VIRUS AG REFERENCE RANGE: NEGATIVE Med Orders - Current: Current Medications Duloxetine HCl (Cymbalta) 30 mg PO DAILY [facility] Furosemide (Lasix) 40 mg PO DAILY [facility] Pantoprazole Sodium 40 mg/ (Sodium Chloride) 10 mls @ 300 mls/hr IV Q12H [facility] Insulin Aspart (Novolog) 0 unit SUBCUT Q6H [facility]; Protocol Last Admin: 03/13/19 16:45 Dose: 1 unit Insulin Detemir (Levemir) 14 unit SUBCUT BEDTIME [facility] Morphine Sulfate (Morphine) 2 mg IVPUSH Q4H PRN PRN Reason: Pain Last Admin: 03/13/19 14:55 Dose: 2 mg Nadolol (Naldol) 20 mg PO DAILY [facility] Ondansetron HCl (Zofran) 4 mg IVPUSH Q4H PRN PRN Reason: Nausea Last Admin: 03/13/19 14:55 Dose: 4 mg Oxcarbazepine (Trileptal) 150 mg PO BID [facility] Oxycodone HCl (Oxycodone) 5 mg PO Q8H PRN PRN Reason: Pain (moderate 4-6) Last Admin: 03/13/19 16:34 Dose: 5 mg Spironolactone (Aldactone) 50 mg PO BID [facility] Trazodone HCl (Trazodone) 50 mg PO BEDTIME PRN PRN Reason: Sleep Discontinued Medications Pantoprazole Sodium 80 mg/ (Sodium Chloride) 20 mls @ 420 mls/hr IVPUSH ONETIME ONE Stop: 03/13/19 11:53 Last Admin: 03/13/19 12:04 Dose: 420 mls/hr Sodium Chloride (Normal Saline) 1,000 mls @ 999 mls/hr IV STAT ONE Stop: 03/13/19 12:51 Last Admin: 03/13/19 12:04 Dose: 999 mls/hr Iopamidol (Isovue Multipack-370 (76%)) 100 ml IVPUSH ONETIME STA Stop: 03/13/19 13:13 Last Admin: 03/13/19 13:13 Dose: 100 ml Morphine Sulfate (Morphine) 2 mg IVPUSH ONETIME ONE Stop: 03/13/19 12:24 Last Admin: 03/13/19 12:33 Dose: 2 mg Ondansetron HCl (Zofran) 8 mg IVPUSH ONETIME ONE Stop: 03/13/19 11:52 Last Admin: 03/13/19 12:05 Dose: 8 mg Sepsis Event Note - Evaluation Sepsis Screening Result: No Definite Risk - Focused Exam Vital Signs: Vital Signs Temp Pulse Resp BP Pulse Ox Pulse Ox 03/13/19 15:12 96 03/13/19 13:30 82 103/59 L 97 03/13/19 13:00 82 17 108/57 L 99 03/13/19 12:30 87 17 98/58 L 98 03/13/19 12:15 81 18 97/49 L 97 03/13/19 12:01 83 18 106/54 L 97 03/13/19 11:49 98.3 F 86 18 133/104 H 100 03/13/19 11:46 89 18 123/41 L 100 Date Exam was Performed: 03/13/19 Time Exam was Performed: 19:27 - Problem List Review Problem List Initiated/Reviewed/Updated: Yes - My Orders Last 24 Hours: My Active Orders 03/13/19 18:56 Transfuse Red Blood Cells [COMM] Urgent - Plan Plan:: This 43 year old female admitted with upper GI bleeding and hx of alcoholic liver cirrhosis 1. Upper GI bleeding: No further emesis since admission, hgb stable, will recheck this evening. NPO currently. PPI IV BID. Will monitor closely. Did discuss with Dr Wood, with history of varices and thrombocytopenia, she would not perform EGD in our facility. She would recommend transfer if hgb drops and bleeding reoccurs. 2. Thrombocytopenia: Will obtain 2 units platelets and transfuse when available. 3. Alcoholic liver cirrhosis: Continue Lasix, Aldactone, Nadolol. Monitor. LFTS and INR stable. 4. Chronic pain: Stable, continue Oxycodone PRN, Morphine PRN if needed for intermittent pain. VTE prophylaxis: SCDs and ambulation Dispo: 2 days
[2019-03-13 20:38] VITALS: BP 115/70; PULSE 90
[2019-03-13] MEDS ORDERED: Spironolactone 25 MG Tab PO SCH (21:00)
[2019-03-13] MEDS ORDERED: Pantoprazole 40 MG in Sodium Chloride 0.9% 10 ML IV SCH (21:00)
[2019-03-13] MEDS ORDERED: Insulin Detemir 100 Units/ML 3 ML Pen SUBCUT SCH (21:00)
[2019-03-13] MEDS ORDERED: OXcarbazepine 300 MG Tab PO SCH (21:00)
[2019-03-14] MEDS ORDERED: DULoxetine 30 MG Cap PO SCH (09:00)
[2019-03-14] MEDS ORDERED: Furosemide 20 MG Tab PO SCH (09:00)
== END 2019-03-13 20:38 ==
LOC: MW.ED 11:40 → MW.MS 13:35
PROVIDERS: ADMIT Student in an Organized Health Care Education/Training Program; ATTEND Student in an Organized Health Care Education/Training Program
DX: K92.2 Gastrointestinal hemorrhage, unspecified (principal); D69.6 Thrombocytopenia, unspecified; K70.31 Alcoholic cirrhosis of liver with ascites; B18.2 Chronic viral hepatitis C; E11.9 Type 2 diabetes mellitus without complications; I85.00 Esophageal varices without bleeding; K70.30 Alcoholic cirrhosis of liver without ascites; G89.29 Other chronic pain; J45.909 Unspecified asthma, uncomplicated; F32.9 Major depressive disorder, single episode, unspecified; F41.9 Anxiety disorder, unspecified; E03.9 Hypothyroidism, unspecified; Z79.4 Long term (current) use of insulin; Z88.5 Allergy status to narcotic agent; Z79.899 Other long term (current) drug therapy
CPT/HCPCS: 36415; 74177; 80053; 81003; 81025; 82140; 82962; 83605; 85014; 85018; 85025; 85610; 86850; 86870; 86900; 86901; 87040; 87804; A9270; C9113; J1815; J2270; J2405; J7030; P9016; Q9967; 36430; 96361; 96374; 96375; 99285; 99285-25

== ENCOUNTER 2019-12-18 18:35 | Emergency (ER) | payer MEDICARE, OTHER ==
[2019-12-18] MEDS ORDERED: Sodium Chloride 0.9% 10 ML Syringe FLUSH PRN (19:03)
[2019-12-18] MEDS ORDERED: Sodium Chloride 0.9% 2.5 ML Syringe FLUSH PRN (19:03)
[2019-12-18] MEDS ORDERED: Sodium Chloride 0.9% 1,000 ML IV ONE (19:04)
[2019-12-18] MEDS ORDERED: Pantoprazole 40 MG in Sodium Chloride 0.9% 10 ML IV ONE (19:04)
[2019-12-18] MEDS ORDERED: Ondansetron 4 MG/2 ML SDV IVPUSH ONE (19:04)
[2019-12-18 19:46] LABS: BLOOD UREA NITROGEN,BUN 16 mg/dL (7.0-18.0); CARBON DIOXIDE,CO2 25.9 mmol/L (21.0-32.0); CHLORIDE,CL 103 mmol/L (98-107); GLUCOSE RANDOM 180 mg/dL (74-106); LIPASE 104 U/L (73-393); POTASSIUM,K 4.1 mmol/L (3.5-5.1); SODIUM,NA 136 mmol/L (136-145)
[2019-12-18] MEDS ORDERED: HYDROmorphone 1 MG/ML Syringe IVPUSH ONE (19:54)
[2019-12-18] MEDS ORDERED: Prochlorperazine 10 MG in Sodium Chloride 0.9% 50 ML IV ONE (19:55)
[2019-12-18] MEDS ORDERED: Sodium Chloride 0.9% 500 ML IV SCH (20:15)
--- NOTE | 2019-12-18 20:18 | EDM.PDOC ---
ED HPI GENERAL MEDICAL PROBLEM - General Chief Complaint: Abdominal Pain Stated Complaint: VOMITTING BLOOD Time Seen by Provider: 12/18/19 18:58 - History of Present Illness INITIAL COMMENTS - FREE TEXT/NARRATIVE: HISTORY AND PHYSICAL: History of present illness: This is a 43-year-old female with a history significant for alcohol related liver disease, cirrhosis of the liver secondary to alcohol use disorder as well as chronic hepatitis C, variceal bleeds, who presents the ER today secondary to hematemesis of approximately 1 pint of bright red blood approximately 11 AM today. Patient presents the ER today secondary to severe nausea and diffuse abdominal discomfort. Patient's last admission to [facility] was February 2019 at which point she required transfer to [facility] secondary to concerns regarding variceal bleed and need for endoscopy. Patient currently denies any other symptomatology other than nausea vomiting and abdominal discomfort. Patient denies any recent fevers, shakes, chills, dysuria, frequency, urgency. Patient reports that she had a bowel movement earlier today and it was dark. Patient reports decreased p.o. intake secondary to her nausea and vomiting and abdominal discomfort. Patient denies any coronavirus exposures. Patient denies any syncope, chest pain, shortness of breath, near syncopal episodes. Review of systems: As per history of present illness and below otherwise all systems reviewed and negative. Past medical history: As per history of present illness and as reviewed below otherwise noncontributory. Surgical history: As per history of present illness and as reviewed below otherwise noncontributory. Social history: No reported history of drug or alcohol abuse. Family history: As per history of present illness and as reviewed below otherwise noncontri butory. Physical exam: HEENT: Atraumatic, normocephalic, pupils reactive, negative for conjunctival pallor or scleral icterus, mucous membranes moist, throat clear, neck supple, nontender, trachea midline. Lungs: Clear to auscultation, breath sounds equal bilaterally, chest nontender. Heart: S1S2, regular, Abd: Soft, nondistended, no rebound/guarding, no psoas or obturator signs, no tenderness at Mcberney's point, no Mcleod's sign. Pt does not present with an exam that would be consistent with an acute surgical abdomen at this time. Patient does have diffuse tenderness to palpation. Pelvis: Stable nontender. Genitourinary: Deferred. Rectal: Deferred. Extremities: Atraumatic, negative for cords or calf pain. Neurovascular unremarkable. Neuro: Awake, alert, oriented. Cranial nerves II through XII unremarkable. Cerebellum unremarkable. Motor and sensory unremarkable throughout. Exam nonfocal. Diagnostics: CBC, CMP, INR, ammonia level, type and cross x2 units of PRBCs, EKG. Therapeutics: Protonix 40 mg IV, Zofran 4 mg IV, Dilaudid 1 mg IV, Compazine 10 mg IV, NSS x1 L IV Assessment and plan: This is a 44-year-old female with a history significant for esophageal varices, alcoholic liver disease with cirrhosis who presents ER today with a presentation consistent with significant upper GI bleed. Patient is anemic with a hemoglobin of 5.4. Initial presentation the ED revealed patient to be hypotensive however after volume resuscitation with 1 L NSS, patient's blood pressure has significantly improved. Patient will need admission to ICU for further evaluation and monitoring of her upper GI bleed. I have discussed the case with Dr. Loja who feels patient will be best served with transfer to a higher level of care for evaluation of upper GI bleed. [facility] was contacted no beds available [facility] was contacted no beds available [facility] contacted no beds available [facility] contacted: Awaiting response Critical Care: The high probability of sudden, clinically significant deterioration in the patient's condition required the highest level of my preparedness to intervene urgently. The services I provided to this patient were to treat and/or prevent clinically significant deterioration. Services included the following: chart data review, reviewing nursing notes and/or old charts, documentation time, it support consultant collaboration regarding findings and treatment options, medication orders and management, direct patient care, vital sign assessments and ordering, interpreting and reviewing diagnostic studies/lab tests. Aggregate critical care time includes only time during which I was engaged inwork directly related to the patient's care, as described above, whether at the bedside or elsewhere in the Emergency Department. It did not include time spent performing other reported procedures or the services of residents, students, nurses or physician assistants. Critical Care Time: 35 minutes Case discussed with [facility] and they have agreed to accept patient in transfer to the intermediate care unit for treatment evaluation of her upper GI bleed. 9:40 PM: I have had a long discussion with the patient's as well as the patient regarding need for transfer. They are adamantly refusing transfer to [facility] or anywhere further. I have advised him that all closer hospitals with the ability to care for her are aware capacity and have refused transfer. Patient is adamant that she wants to sign out AGAINST MEDICAL ADVICE. I have discussed with her and her together and independently that my concern regarding her bleeding, her anemia, her cirrhosis, her low platelet count leads to a significantly increased likelihood of , stroke, heart failure. Patient and both understand this and they are adamant about refusing transfer. I have also highly recommended that the patient wait in the ED until she at least receives her 2 units of packed red blood cells prior to leaving. Patient is refusing to even wait for her transfusion because she reports that she is been here for over 2 hours and has yet to receive her blood products. I explained to the patient that her initial refusal to allow our laboratory to draw her blood as well as her multiple antibodies has caused a delay in obtaining her blood products. Patient still is adamant and is currently refusing any transfusion or any further care in the ED. Patient has removed her blood pressure cuff, her pulse oximeter is removing her leads from her pads and is requesting the IV to be removed. Once again the patient has been informed of the high risk of by signing out AGAINST MEDICAL ADVICE. Patient has been able to display both the capacity and competency for medical d ecision-making at this time. Patient is alert awake and orient x3. Patient's is in agreement with her plan and has refused to assist with convincing her to stay to receive blood work transfer. Definitive disposition and diagnosis as appropriate pending reevaluation and review of above. abdomen Pain Score (Numeric/FACES): 10 - Related Data Allergies Allergy/AdvReac Type Severity Reaction Status Date / Time codeine Allergy Itching Verified 12/18/19 18:54 Home Meds: Home Meds traZODone 50 mg PO BEDTIME PRN 04/22/17 [History] Furosemide 40 mg PO BID 09/09/17 [History] OXcarbazepine [Oxcarbazepine] 150 mg PO BID 09/09/17 [History] Levothyroxine Sodium [Synthroid] 75 mcg PO ACBREAKFAST 10/01/17 [History] nadoloL [Corgard] 20 mg PO DAILY 10/01/17 [History] Diphenhyd/Lidocaine/Nystatin [Magic Mouthwash] 5 - 20 ml PO Q4HR PRN 12/13/18 [History] Insulin Aspart [NovoLOG] 9 unit SUBCUT TIDAC 12/14/18 [History] Insulin Detemir [Levemir] 30 unit SUBCUT DAILY 12/14/18 [History] DULoxetine [Cymbalta] 30 mg PO DAILY 01/17/19 [History] Omeprazole 40 mg PO ACBREAKFAST 01/17/19 [History] Spironolactone 50 mg PO BID 01/17/19 [History] Lactulose [Chronulac] 10 gm PO BID 30 Days #60 cup 01/18/19 [Rx] Ondansetron [Zofran ODT] 4 mg PO Q6H PRN #30 tab.dis 01/18/19 [Rx] oxyCODONE 5 mg PO Q8H PRN #15 tablet 01/18/19 [Rx] Past Medical History - Past Health History Medical/Surgical History: Denies Medical/Surgical History HEENT History: Reports: Impaired Vision Cardiovascular History: Reports: Heart Murmur Other Cardiovascular History: Takes diuretics for portal HTN and swelling Respiratory History: Reports: Asthma Gastrointestinal History: Reports: Cholelithiasis, GI Bleed, Hepatitis, Other (See Below) Other Gastrointestinal History: Gastric Ulcer, pancreatitis? and ileius Genitourinary History: Reports: UTI, Recurrent DIGITAL CONTENT SPECIALIST History: Reports: Musculoskeletal History: Reports: None Other Musculoskeletal History: Herniated disk, lumbar fracture, fractured right ankle Neurological History: Reports: Concussion, Other (See Below) Other Neuro History: Mild strokes 10 yrs ago Psychiatric History: Reports: Anxiety, Bipolar, Depression Endocrine/Metabolic History: Reports: Diabetes, Type II, Hypothyroidism Other Endocrine/Metabolic History: pt stated she was on thyroxine before but says to stop it a month ago Insulin Pump Model and Geropsychologist: None Hematologic History: Reports: Anemia, Other (See Below) Other Hematologic History: Pt reports low white blood cell and platelet count. Immunologic History: Reports: None Other Immunologic History: Hep-c Oncologic (Cancer) History: Reports: None Dermatologic History: Reports: Urticaria - Infectious Disease History Infectious Disease History: Reports: Hepatitis C - Past Surgical History Head Surgeries/Procedures: Reports: None HEENT Surgical History: Reports: LASIK Respiratory Surgical History: Reports: None GI Surgical History: Reports: Cholecystectomy, EGD Female Surgical History: Reports: Section, Tubal Ligation Endocrine Surgical History: Reports: None Neurological Surgical History: Reports: Lumbar Spine Musculoskeletal Surgical History: Reports: Other (See Below) Other Musculoskeletal Surgeries/Procedures:: ankle surgery, back surgery Dermatological Surgical History: Reports: None Social & Family History - Family History Family Medical History: Noncontributory - Tobacco Use Smoking Status *Q: Current Every Day Smoker Years of Tobacco use: 25 Packs/Tins Daily: 0.2 - Caffeine Use Caffeine Use: Reports: None Other Caffeine Use: occasional coffee, unsweetened tea - Recreational Drug Use Recreational Drug Use: No - Living Situation & Occupation Occupation: Disabled ED ROS GENERAL - Review of Systems Review Of Systems: See Below ED EXAM, GENERAL - Physical Exam Exam: See Below Course - Vital Signs Last Recorded V/S: Last Vital Signs Temp 97.8 F 12/18/19 18:51 Pulse 115 H 12/18/19 18:51 Resp 18 12/18/19 18:51 BP 119/64 12/18/19 19:21 Pulse Ox 94 L 12/18/19 18:51 - Orders/Labs/Meds Orders: Active Orders 24 hr Category Date Time Status EKG Documentation Completion [RC] AM Care 12/18/19 19:04 Active CORONAVIRUS COVID-19 PCR PHL Stat Lab 12/18/19 20:45 Ordered TYPE AND SCREEN [BBK] Stat Lab 12/18/19 20:02 Received Sodium Chloride 0.9% [Normal Saline] 500 ml Med 12/18/19 20:15 Active IV .BOLUS Sodium Chloride 0.9% [Saline Flush] Med 12/18/19 19:03 Active 10 ml FLUSH ASDIRECTED PRN Sodium Chloride 0.9% [Saline Flush] Med 12/18/19 19:03 Active 2.5 ml FLUSH ASDIRECTED PRN Saline Lock Insert [OM.PC] Stat Oth 12/18/19 19:03 Ordered Transfuse PRBC [Transfuse Red Blood Cells] [COMM] Stat Oth 12/18/19 19:57 Ordered Medication Orders Sodium Chloride (Normal Saline) 500 mls @ 125 mls/hr IV .BOLUS JOYCE Sodium Chloride (Saline Flush) 10 ml FLUSH ASDIRECTED PRN PRN Reason: Keep Vein Open Last Admin: 12/18/19 19:15 Dose: 10 ml Documented by: LUCAS Sodium Chloride (Saline Flush) 2.5 ml FLUSH ASDIRECTED PRN PRN Reason: Keep Vein Open Last Admin: 12/18/19 19:15 Dose: 2.5 ml Documented by: LUCAS Labs: Laboratory Tests 12/18/19 12/18/19 12/18/19 Range/Units 19:12 19:12 19:12 WBC 6.47 (4.0-11.0) K/uL RBC 2.60 L (4.30-5.90) M/uL Hgb 5.9 L (12.0-16.0) g/dL Hct 19.5 L (36.0-46.0) % MCV 75.0 L (80.0-98.0) fL MCH 22.7 L (27.0-32.0) pg MCHC 30.3 L (31.0-37.0) g/dL RDW Std Deviation 60.7 (28.0-62.0) fl RDW Coeff of Jovan 22 H (11.0-15.0) % Plt Count 61 L (150-400) K/uL Neut % (Auto) 60.5 (48.0-80.0) % Lymph % (Auto) 26.4 (16.0-40.0) % [place] % (Auto) 11.7 (0.0-15.0) % Eos % (Auto) 0.9 (0.0-7.0) % Baso % (Auto) 0.5 (0.0-1.5) % Neut # (Auto) 3.9 (1.4-5.7) K/uL Lymph # (Auto) 1.7 (0.6-2.4) K/uL [place] # (Auto) 0.8 (0.0-0.8) K/uL Eos # (Auto) 0.1 (0.0-0.7) K/uL Baso # (Auto) 0.0 (0.0-0.1) K/uL Nucleated RBC % 0.0 /100WBC Nucleated RBCs # 0 K/uL INR 1.63 APTT 29.2 (18.6-31.3) SEC Sodium 136 (136-145) mmol/L Potassium 4.1 (3.5-5.1) mmol/L Chloride 103 (98-107) mmol/L Carbon Dioxide 25.9 (21.0-32.0) mmol/L BUN 16 (7.0-18.0) mg/dL Creatinine 0.7 (0.6-1.0) mg/dL Est Cr Clr Drug Dosing 100.77 mL/min Estimated GFR (MDRD) > 60.0 ml/min Glucose 180 H (74-106) mg/dL Calcium 7.0 L (8.5-10.1) mg/dL Magnesium 1.3 L (1.8-2.4) mg/dL Total Bilirubin 1.8 H (0.2-1.0) mg/dL AST 86 H (15-37) IU/L ALT 51 (14-63) IU/L Alkaline Phosphatase 150 H (46-116) U/L Ammonia (19-54) ug/dL Total Protein 5.9 L (6.4-8.2) g/dL Albumin 2.0 L (3.4-5.0) g/dL Globulin 3.9 (2.6-4.0) g/dL Albumin/Globulin Ratio 0.5 L (0.9-1.6) Lipase 104 (73-393) U/L HCG, Qual (NEG) Urine Color Urine Appearance Urine pH (5.0-8.0) Ur Specific Warriors Mark (1.001-1.035) Urine Protein (NEGATIVE) mg/dL Urine Glucose (UA) (NEGATIVE) mg/dL Urine Ketones (NEGATIVE) mg/dL Urine Occult Blood (NEGATIVE) Urine Nitrite (NEGATIVE) Urine Bilirubin (NEGATIVE) Urine Ictotest Urine Urobilinogen (<2.0) EU/dL Ur Leukocyte Esterase (NEGATIVE) Urine RBC (0-2/HPF) Urine WBC (0-5/HPF) Ur Epithelial Cells (NONE-FEW) Amorphous Sediment (NEGATIVE) Urine Bacteria (NEGATIVE) Urine Mucus (NONE-MOD) 12/18/19 12/18/19 12/18/19 Range/Units 19:12 20:02 20:05 WBC (4.0-11.0) K/uL RBC (4.30-5.90) M/uL Hgb (12.0-16.0) g/dL Hct (36.0-46.0) % MCV (80.0-98.0) fL MCH (27.0-32.0) pg MCHC (31.0-37.0) g/dL RDW Std Deviation (28.0-62.0) fl RDW Coeff of Jovan (11.0-15.0) % Plt Count (150-400) K/uL Neut % (Auto) (48.0-80.0) % Lymph % (Auto) (16.0-40.0) % [place] % (Auto) (0.0-15.0) % Eos % (Auto) (0.0-7.0) % Baso % (Auto) (0.0-1.5) % Neut # (Auto) (1.4-5.7) K/uL Lymph # (Auto) (0.6-2.4) K/uL [place] # (Auto) (0.0-0.8) K/uL Eos # (Auto) (0.0-0.7) K/uL Baso # (Auto) (0.0-0.1) K/uL Nucleated RBC % /100WBC Nucleated RBCs # K/uL INR APTT (18.6-31.3) SEC Sodium (136-145) mmol/L Potassium (3.5-5.1) mmol/L Chloride (98-107) mmol/L Carbon Dioxide (21.0-32.0) mmol/L BUN (7.0-18.0) mg/dL Creatinine (0.6-1.0) mg/dL Est Cr Clr Drug Dosing mL/min Estimated GFR (MDRD) ml/min Glucose (74-106) mg/dL Calcium (8.5-10.1) mg/dL Magnesium (1.8-2.4) mg/dL Total Bilirubin (0.2-1.0) mg/dL AST (15-37) IU/L ALT (14-63) IU/L Alkaline Phosphatase (46-116) U/L Ammonia 90 H (19-54) ug/dL Total Protein (6.4-8.2) g/dL Albumin (3.4-5.0) g/dL Globulin (2.6-4.0) g/dL Albumin/Globulin Ratio (0.9-1.6) Lipase (73-393) U/L HCG, Qual NEGATIVE (NEG) Urine Color BROWN Urine Appearance CLOUDY Urine pH 6.0 (5.0-8.0) Ur Specific Warriors Mark 1.025 (1.001-1.035) Urine Protein TRACE H (NEGATIVE) mg/dL Urine Glucose (UA) NEGATIVE (NEGATIVE) mg/dL Urine Ketones NEGATIVE (NEGATIVE) mg/dL Urine Occult Blood LARGE H (NEGATIVE) Urine Nitrite NEGATIVE (NEGATIVE) Urine Bilirubin SMALL H (NEGATIVE) Urine Ictotest POSITIVE Urine Urobilinogen 0.2 (<2.0) EU/dL Ur Leukocyte Esterase NEGATIVE (NEGATIVE) Urine RBC NONE SEEN (0-2/HPF) Urine WBC 0-1 (0-5/HPF) Ur Epithelial Cells FEW (NONE-FEW) Amorphous Sediment FEW (NEGATIVE) Urine Bacteria 3+ H (NEGATIVE) Urine Mucus LIGHT (NONE-MOD) Meds: Medications Generic Name Dose Route Start Last Admin Trade Name Freq PRN Reason Stop Dose Admin Sodium Chloride 500 mls @ 125 mls/hr 12/18/19 20:15 Normal Saline IV .BOLUS JOYCE Sodium Chloride 10 ml 12/18/19 19:03 12/18/19 19:15 Saline Flush FLUSH 10 ml ASDIRECTED PRN Administration Keep Vein Open Sodium Chloride 2.5 ml 12/18/19 19:03 12/18/19 19:15 Saline Flush FLUSH 2.5 ml ASDIRECTED PRN Administration Keep Vein Open Discontinued Medications Generic Name Dose Route Start Last Admin Trade Name Freq PRN Reason Stop Dose Admin Hydromorphone HCl 1 mg 12/18/19 19:54 12/18/19 20:04 Dilaudid IVPUSH 12/18/19 19:55 1 mg ONETIME ONE Administration Sodium Chloride 1,000 mls @ 999 mls/hr 12/18/19 19:04 12/18/19 19:13 Normal Saline IV 12/18/19 20:04 999 mls/hr .Bolus ONE Administration Pantoprazole Sodium 40 mg/ 10 mls @ 300 mls/hr 12/18/19 19:04 12/18/19 19:12 Sodium Chloride IV 12/18/19 19:05 300 mls/hr NOW ONE Administration Prochlorperazine Edisylate 10 52 mls @ 150 mls/hr 12/18/19 19:55 12/18/19 20:49 mg/ Sodium Chloride IV 12/18/19 20:15 150 mls/hr ONETIME ONE Administration Ondansetron HCl 4 mg 12/18/19 19:04 12/18/19 19:13 Zofran IVPUSH 12/18/19 19:05 4 mg ONETIME ONE Administration Departure - Departure Time of Disposition: 21:45 Disposition: Against Medical Advice 07 Condition: Critical Clinical Impression: GI bleed, Left against medical advice Cirrhosis Qualifiers: Hepatic cirrhosis type: alcoholic cirrhosis Ascites presence: with ascites Qualified Code(s): K70.31 - Alcoholic cirrhosis of liver with ascites Esophageal varices Qualifiers: Esophageal varices type: unspecified type Esophageal varices bleeding: without bleeding Qualified Code(s): I85.00 - Esophageal varices without bleeding - Discharge Information Instructions: Esophageal Varices Referrals: Philly Keith MD [Primary Care Provider] - Forms: ED Department Discharge Additional Instructions: Your signing out AGAINST MEDICAL ADVICE. You understand that we have had a long discussion regarding the risk of by refusing to be transferred to [place]. He also understand that you risk by refusing transfusion. Please return the ER if you change your mind regarding wanting to be admitted or transferred to [facility]. Or if you change your mind regarding wanting to wait for your blood transfusion. Sepsis Event Note (ED) - Evaluation Sepsis Screening Result: No Definite Risk - Focused Exam Vital Signs: Vital Signs Temp Pulse Resp BP Pulse Ox 12/18/19 19:21 119/64 12/18/19 18:51 97.8 F 115 H 18 93/56 L 94 L - My Orders Last 24 Hours: My Active Orders 12/18/19 19:03 Sodium Chloride 0.9% [Saline Flush] 10 ml FLUSH ASDIRECTED PRN Sodium Chloride 0.9% [Saline Flush] 2.5 ml FLUSH ASDIRECTED PRN Saline Lock Insert [OM.PC] Stat 12/18/19 19:04 EKG Documentation Completion [RC] AM 12/18/19 19:57 Transfuse PRBC [Transfuse Red Blood Cells] [COMM] Stat 12/18/19 20:02 TYPE AND SCREEN [BBK] Stat 12/18/19 20:15 Sodium Chloride 0.9% [Normal Saline] 500 ml IV .BOLUS 12/18/19 20:45 CORONAVIRUS COVID-19 PCR PHL Stat - Assessment/Plan Last 24 Hours: My Active Orders 12/18/19 19:03 Sodium Chloride 0.9% [Saline Flush] 10 ml FLUSH ASDIRECTED PRN Sodium Chloride 0.9% [Saline Flush] 2.5 ml FLUSH ASDIRECTED PRN Saline Lock Insert [OM.PC] Stat 12/18/19 19:04 EKG Documentation Completion [RC] AM 12/18/19 19:57 Transfuse PRBC [Transfuse Red Blood Cells] [COMM] Stat 12/18/19 20:02 TYPE AND SCREEN [BBK] Stat 12/18/19 20:15 Sodium Chloride 0.9% [Normal Saline] 500 ml IV .BOLUS 12/18/19 20:45 CORONAVIRUS COVID-19 PCR PHL Stat
[2019-12-19 01:34] VITALS: BP 113/82; PULSE 92
== END 2019-12-18 21:43 | disposition left against medical advice (07) ==
LOC: MW.ED 18:35
DX: I85.00 Esophageal varices without bleeding (principal); K92.2 Gastrointestinal hemorrhage, unspecified; K70.31 Alcoholic cirrhosis of liver with ascites; J45.909 Unspecified asthma, uncomplicated; F31.9 Bipolar disorder, unspecified; F41.9 Anxiety disorder, unspecified; E11.9 Type 2 diabetes mellitus without complications; I10 Essential (primary) hypertension; E03.9 Hypothyroidism, unspecified; F17.210 Nicotine dependence, cigarettes, uncomplicated; Z86.73 Personal history of transient ischemic attack (TIA), and cerebral infarction without residual deficits; Z88.5 Allergy status to narcotic agent; Z79.4 Long term (current) use of insulin; Z79.899 Other long term (current) drug therapy
CPT/HCPCS: 36415; 80053; 81001; 82140; 83690; 83735; 84703; 85025; 85610; 85730; 86850; 86870; 86900; 86901; 93005; 96361; 96365; 96375; 99285; C9113; J0780; J1170; J2405; J7030; J7050; 86902

== ENCOUNTER 2019-12-22 06:23 | Emergency (ER) | payer MEDICARE, OTHER ==
[2019-12-22] MEDS ORDERED: Sodium Chloride 0.9% 2.5 ML Syringe FLUSH PRN (06:27)
[2019-12-22] MEDS ORDERED: Sodium Chloride 0.9% 10 ML Syringe FLUSH PRN (06:27)
--- NOTE | 2019-12-22 06:48 | EDM.PDOC ---
<Chay Beltran - Last Filed: 12/22/19 08:34> ED HPI GENERAL MEDICAL PROBLEM - General Chief Complaint: Abdominal Pain Stated Complaint: BACK PAIN Time Seen by Provider: 12/22/19 06:27 Source of Information: Reports: Patient History Limitations: Reports: No Limitations - Related Data Allergies Allergy/AdvReac Type Severity Reaction Status Date / Time codeine Allergy Itching Verified 12/22/19 06:26 Home Meds: Home Meds traZODone 50 mg PO BEDTIME PRN 04/22/17 [History] Furosemide 40 mg PO BID 09/09/17 [History] OXcarbazepine [Oxcarbazepine] 150 mg PO BID 09/09/17 [History] Levothyroxine Sodium [Synthroid] 75 mcg PO ACBREAKFAST 10/01/17 [History] nadoloL [Corgard] 20 mg PO DAILY 10/01/17 [History] Diphenhyd/Lidocaine/Nystatin [Magic Mouthwash] 5 - 20 ml PO Q4HR PRN 12/13/18 [History] Insulin Aspart [NovoLOG] 9 unit SUBCUT TIDAC 12/14/18 [History] Insulin Detemir [Levemir] 30 unit SUBCUT DAILY 12/14/18 [History] DULoxetine [Cymbalta] 30 mg PO DAILY 01/17/19 [History] Omeprazole 40 mg PO ACBREAKFAST 01/17/19 [History] Spironolactone 50 mg PO BID 01/17/19 [History] Lactulose [Chronulac] 10 gm PO BID 30 Days #60 cup 01/18/19 [Rx] Ondansetron [Zofran ODT] 4 mg PO Q6H PRN #30 tab.dis 01/18/19 [Rx] oxyCODONE 5 mg PO Q8H PRN #15 tablet 01/18/19 [Rx] EKG INTERPRETATION EKG Interpretation Comments: 102 bpm, sinus tachycardia, normal QRS interval, no STEMI. EKG and rhythm strip interpreted by me at 0656 Course - Re-Assessments/Exams Free Text/Narrative Re-Assessment/Exam: 12/22/19 07:00 This patient was signed out to me from Dr. Reagan at this time. I promptly performed a detailed physical examination, my examination was performed after ED treatments were initiated by the signout provider. Her abdomen is diffusely tender and distended with fluid wave, she is pale and tachycardic, lungs are c lear to auscultation bilaterally. Hemoglobin resulted at 5.0, decreased from 5.9 on 12/17, will transfuse 2U PRBC. Ordered octreotide bolus/drip, protonix 40mg IV, IVF 1L. Patient's platelet today is consistent with baseline. Patient had an ultrasound of the abdomen performed demonstrating ascites on 10/2019. 12/22/19 07:00 Patient will require transfer to outside facility for the need of higher level of care not available at this facility, and the need for GI groundwater consultant services unavailable at this facility. Any emergency conditions have been stabilized to the ability of the ED prior to the transfer. 12/22/19 08:34 Case was discussed and accepted by Dr. Beatty from [place], [place] Departure - Departure Time of Disposition: 07:44 Disposition: DC/Tfer to Other 70 Condition: Critical Clinical Impression: Thrombocytopenia, Gastrointestinal hemorrhage, Symptomatic anemia Hepatitis C Qualifiers: Viral hepatitis chronicity: unspecified Hepatic coma status: without hepatic coma Qualified Code(s): B19.20 - Unspecified viral hepatitis C without hepatic coma Cirrhosis Qualifiers: Hepatic cirrhosis type: alcoholic cirrhosis Ascites presence: with ascites Qualified Code(s): K70.31 - Alcoholic cirrhosis of liver with ascites Ascites Qualifiers: Ascites type: due to alcoholic cirrhosis Qualified Code(s): K70.31 - Alcoholic cirrhosis of liver with ascites - Discharge Information *PRESCRIPTION DRUG MONITORING PROGRAM REVIEWED*: Not Applicable *COPY OF PRESCRIPTION DRUG MONITORING REPORT IN PATIENT XENA: Not Applicable Forms: ED Department Discharge Critical Care Note - Critical Care Note Total Time (mins): 128 Comments: CRITCAL CARE: The high probability of sudden, clinically significant deterioration in the patient's condition required the highest level of my preparedness to intervene urgently. The services I provided to this patient were to treat and/or prevent clinically significant deterioration. Services included the following: chart data review, r eviewing nursing notes and/or old charts, documentation time, groundwater consultant collaboration regarding findings and treatment options, medication orders and management, direct patient care, vital sign assessments and ordering, interpreting and reviewing diagnostic studies/lab tests. Aggregate critical care time includes only time during which I was engaged in work directly related to the patient's care, as described above, whether at the bedside or elsewhere in the Emergency Department. It did not include time spent performing other reported procedures or the services of residents, students, nurses or physician assistants. Frequent interventions and/or frequent repeat evaluations were required as well as counseling and coordination of care regarding prognosis, treatments, and discussions with patient, staff and consultants. Critical Care (excluding other procedures): 128 minutes <Jhonny Reagan - Last Filed: 12/22/19 18:38> ED HPI GENERAL MEDICAL PROBLEM - History of Present Illness INITIAL COMMENTS - FREE TEXT/NARRATIVE: History of present illness: [] The patient was seen by my partner on the . She had hematemesis and had a hemoglobin of 5.7. She left AMA without getting transfused. Her vomiting and black bowel movements stopped yesterday. She did respond well to Zofran yesterday and today. The patient is here because she has severe abdominal pain and back pain in both flanks. She says she hurts where her kidneys are. She also complains that her abdomen is terribly distended. Over the last 24 hours she has developed increasing shortness of breath. She feels better supine. She feels better when she rests. Her shortness of breath is on exertion. The patient says she has been evaluated for possible removal of fluid from her abdomen several times but each time they said there was no enough fluid to undergo paracentesis. She is quite distended now. Review of systems: As per history of present illness and below otherwise all systems reviewed and negative. Past medical history: As per history of present illness and as reviewed below otherwise noncontributor y. Surgical history: As per history of present illness and as reviewed below otherwise noncontributory. Social history: No reported history of drug or alcohol abuse. Family history: As per history of present illness and as reviewed below otherwise noncontributory. Physical exam: Constitutional - well developed, well-nourished and in no acute distress HEENT - normocephalic, no evidence of trauma - external nose and mouth normal - no mass in neck and no JVD - mucosae moist EYES -sclera terribly pale full EOM, PERRL, no icterus - no evidence of inflammation, injection, or drainage Respiratory - no respiratory distress, equal bilateral expansion, lungs clear to auscultation and no abnormal lung sounds Cardiovascular - Regular Rhythm with S1 and S2 appreciated and no murmur, gallop or rub. GI - abdomen firm with distention and panic in the anterior abdomen. Diffusely tender without guard or rebound. Or organomegaly - normal bowel sounds - no guard or rebound Musculoskeletal no gross deformity of long bones or joints - no tenderness, swelling or edema Neurologic - Alert and oriented times four - CN II-XII grossly intact - motor sensory and coordination symmetrically normal Psychiatric - appropriate mood and affect with normal thought content Hematologic - No petechiae or purpura - mucosa appropriate color and sclera not pale - normal nail bed color and refill Integument - no rash or evidence of trauma - normal turgor Diagnostics: [] Therapeutics: [] Impression: [] Plan: [] Definitive disposition and diagnosis as appropriate pending reevaluation and review of above. 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 Immunologic History: Reports: None Other Immunologic History: Hep-c Oncologic (Cancer) History: Reports: None Dermatologic History: Reports: Urticaria - Infectious Disease History Infectious Disease History: Reports: Hepatitis C - Past Surgical History Head Surgeries/Procedures: Reports: None HEENT Surgical History: Reports: LASIK Respiratory Surgical History: Reports: None GI Surgical History: Reports: Cholecystectomy, EGD Female Surgical History: Reports: Section, Tubal Ligation Endocrine Surgical History: Reports: None Neurological Surgical History: Reports: Lumbar Spine Musculoskeletal Surgical History: Reports: Other (See Below) Other Musculoskeletal Surgeries/Procedures:: ankle surgery, back surgery Dermatological Surgical History: Reports: None Social & Family History - Family History Family Medical History: Noncontributory - Tobacco Use Smoking Status *Q: Current Every Day Smoker Years of Tobacco use: 25 Packs/Tins Daily: 0.5 - Caffeine Use Caffeine Use: Reports: Coffee Other Caffeine Use: occasional coffee, unsweetened tea - Recreational Drug Use Recreational Drug Use: No - Living Situation & Occupation Occupation: Disabled ED ROS GENERAL - Review of Systems Review Of Systems: Comprehensive ROS is negative, except as noted in HPI. ED EXAM, GENERAL - Physical Exam Exam: See Below Free Text/Narrative:: My physical exam as in the HPI Course - Vital Signs Text/Narrative:: At the 7 AM end of my shift the patient was obviously quite ill but tests to define the nature of her condition and urgency of care were pending and I turned ehr care over to the hands of my colleague Dr. Beltran. Last Recorded V/S: Last Vital Signs Temp 97.5 F 12/22/19 09:23 Pulse 92 12/22/19 09:23 Resp 21 H 12/22/19 09:23 BP 102/67 12/22/19 09:23 Pulse Ox 97 12/22/19 08:09 - Orders/Labs/Meds Orders: Active Orders 24 hr Category Date Time Status ANTIBODY IDENTIFICATION [BBK] Stat Lab 12/22/19 06:53 Results RED BLOOD CELLS LP [BBK] Stat Lab 12/22/19 06:53 Results TYPE AND SCREEN [BBK] Stat Lab 12/22/19 06:53 Results Saline Lock Insert [OM.PC] Stat Oth 12/22/19 06:27 Ordered Transfuse Red Blood Cells [COMM] Stat Oth 12/22/19 07:33 Ordered Labs: Laboratory Tests 12/22/19 12/22/19 12/22/19 Range/Units 06:53 06:53 06:53 WBC 3.66 L (4.0-11.0) K/uL RBC 2.17 L (4.30-5.90) M/uL Hgb 5.0 L (12.0-16.0) g/dL Hct 16.9 L (36.0-46.0) % MCV 77.9 L (80.0-98.0) fL MCH 23.0 L (27.0-32.0) pg MCHC 29.6 L (31.0-37.0) g/dL RDW Std Deviation 67.0 H (28.0-62.0) fl RDW Coeff of Jovan 25 H (11.0-15.0) % Plt Count 50 L (150-400) K/uL Neut % (Auto) 65.8 (48.0-80.0) % Lymph % (Auto) 20.5 (16.0-40.0) % Gaston % (Auto) 10.9 (0.0-15.0) % Eos % (Auto) 2.5 (0.0-7.0) % Baso % (Auto) 0.3 (0.0-1.5) % Neut # (Auto) 2.4 (1.4-5.7) K/uL Lymph # (Auto) 0.8 (0.6-2.4) K/uL Gaston # (Auto) 0.4 (0.0-0.8) K/uL Eos # (Auto) 0.1 (0.0-0.7) K/uL Baso # (Auto) 0.0 (0.0-0.1) K/uL Nucleated RBC % 0.0 /100WBC Nucleated RBCs # 0 K/uL INR 1.54 APTT 28.1 (18.6-31.3) SEC Lactate (0.20-2.00) mmol/L Sodium 134 L (136-145) mmol/L Potassium 3.4 L (3.5-5.1) mmol/L Chloride 103 (98-107) mmol/L Carbon Dioxide 27.1 (21.0-32.0) mmol/L BUN 14 (7.0-18.0) mg/dL Creatinine 0.9 (0.6-1.0) mg/dL Est Cr Clr Drug Dosing 78.38 mL/min Estimated GFR (MDRD) > 60.0 ml/min Glucose 198 H (74-106) mg/dL Calcium 6.7 L (8.5-10.1) mg/dL Magnesium 1.8 (1.8-2.4) mg/dL Total Bilirubin 1.6 H (0.2-1.0) mg/dL AST 70 H (15-37) IU/L ALT 48 (14-63) IU/L Alkaline Phosphatase 175 H (46-116) U/L Troponin I (0.000-0.056) ng/mL Total Protein 5.6 L (6.4-8.2) g/dL Albumin 1.9 L (3.4-5.0) g/dL Globulin 3.7 (2.6-4.0) g/dL Albumin/Globulin Ratio 0.5 L (0.9-1.6) Lipase 123 (73-393) U/L Ethyl Alcohol < 3.0 mg/dL Blood Type Antibody Screen Antibody Identification Crossmatch 12/22/19 12/22/19 12/22/19 Range/Units 06:53 06:53 06:53 WBC (4.0-11.0) K/uL RBC (4.30-5.90) M/uL Hgb (12.0-16.0) g/dL Hct (36.0-46.0) % MCV (80.0-98.0) fL MCH (27.0-32.0) pg MCHC (31.0-37.0) g/dL RDW Std Deviation (28.0-62.0) fl RDW Coeff of Jovan (11.0-15.0) % Plt Count (150-400) K/uL Neut % (Auto) (48.0-80.0) % Lymph % (Auto) (16.0-40.0) % Gaston % (Auto) (0.0-15.0) % Eos % (Auto) (0.0-7.0) % Baso % (Auto) (0.0-1.5) % Neut # (Auto) (1.4-5.7) K/uL Lymph # (Auto) (0.6-2.4) K/uL Gaston # (Auto) (0.0-0.8) K/uL Eos # (Auto) (0.0-0.7) K/uL Baso # (Auto) (0.0-0.1) K/uL Nucleated RBC % /100WBC Nucleated RBCs # K/uL INR APTT (18.6-31.3) SEC Lactate 1.6 (0.20-2.00) mmol/L Sodium (136-145) mmol/L Potassium (3.5-5.1) mmol/L Chloride (98-107) mmol/L Carbon Dioxide (21.0-32.0) mmol/L BUN (7.0-18.0) mg/dL Creatinine (0.6-1.0) mg/dL Est Cr Clr Drug Dosing mL/min Estimated GFR (MDRD) ml/min Glucose (74-106) mg/dL Calcium (8.5-10.1) mg/dL Magnesium (1.8-2.4) mg/dL Total Bilirubin (0.2-1.0) mg/dL AST (15-37) IU/L ALT (14-63) IU/L Alkaline Phosphatase (46-116) U/L Troponin I < 0.050 (0.000-0.056) ng/mL Total Protein (6.4-8.2) g/dL Albumin (3.4-5.0) g/dL Globulin (2.6-4.0) g/dL Albumin/Globulin Ratio (0.9-1.6) Lipase (73-393) U/L Ethyl Alcohol mg/dL Blood Type O POSITIVE Antibody Screen POSITIVE Antibody Identification Anti-E Crossmatch See Detail Meds: Medications Discontinued Medications Generic Name Dose Route Start Last Admin Trade Name Freq PRN Reason Stop Dose Admin Lactated Ringer's 1,000 mls @ 999 mls/hr 12/22/19 07:25 12/22/19 07:26 Ringers, Lactated IV 12/22/19 08:25 999 mls/hr .BOLUS ONE Administration Octreotide Acetate 500 mcg/ 500 mls @ 50 mls/hr 12/22/19 07:45 12/22/19 08:29 Sodium Chloride IV 50 mcg/hr Q10H JOYCE 50 mls/hr Administration 50 MCG/HR Pantoprazole Sodium 40 mg/ 20 mls @ 420 mls/hr 12/22/19 07:36 12/22/19 07:48 Sodium Chloride IVPUSH 12/22/19 07:38 420 mls/hr ONETIME ONE Administration Lactated Ringer's 1,000 mls @ 999 mls/hr 12/22/19 08:50 12/22/19 08:52 Ringers, Lactated IV 12/22/19 09:50 999 mls/hr .BOLUS ONE Administration Octreotide Acetate 50 mcg 12/22/19 08:30 12/22/19 08:28 Sandostatin IV 12/22/19 08:31 50 mcg ONETIME ONE Administration Sodium Chloride 10 ml 12/22/19 06:27 12/22/19 07:26 Saline Flush FLUSH 10 ml ASDIRECTED PRN Administration Keep Vein Open Sodium Chloride 2.5 ml 12/22/19 06:27 12/22/19 07:26 Saline Flush FLUSH 2.5 ml ASDIRECTED PRN Administration Keep Vein Open Departure - Departure Condition: Fair Sepsis Event Note (ED) - Evaluation Sepsis Screening Result: No Definite Risk - Focused Exam Vital Signs: Vital Signs Temp Pulse Resp BP Pulse Ox 12/22/19 09:23 97.5 F 92 21 H 102/67 12/22/19 09:08 97.9 F 85 17 95/62 12/22/19 08:09 103 H 107/69 97 12/22/19 07:54 104 H 102/54 L 99 12/22/19 07:39 103 H 112/44 L 98 12/22/19 07:35 107 H 14 110/68 98 12/22/19 07:25 107 H 89/48 L 98 - My Orders Last 24 Hours: My Active Orders 12/22/19 06:27 Saline Lock Insert [OM.PC] Stat 12/22/19 06:53 ANTIBODY IDENTIFICATION [BBK] Stat TYPE AND SCREEN [BBK] Stat - Assessment/Plan Last 24 Hours: My Active Orders 12/22/19 06:27 Saline Lock Insert [OM.PC] Stat 12/22/19 06:53 ANTIBODY IDENTIFICATION [BBK] Stat TYPE AND SCREEN [BBK] Stat
--- NOTE | 2019-12-22 07:14 | CR ---
INDICATION: Dyspnea on exertion. FINDINGS: A single portable chest x-ray shows a normal cardiac silhouette. The lungs show no focal pulmonary opacities. Sharp pleural margins. No pneumothorax. IMPRESSION: No evidence of acute pulmonary abnormalities. Dictated by Lan Stokes MD @ 12/22/2019 7:11:56 AM Dictated by: Lan Stokes MD @ 12/22/2019 07:12:03 (Electronically Signed)
[2019-12-22] MEDS ORDERED: Lactated Ringers 1,000 ML IV ONE ×2 (07:25→08:50)
[2019-12-22 07:28] LABS: BLOOD UREA NITROGEN,BUN 14 mg/dL (7.0-18.0); CARBON DIOXIDE,CO2 27.1 mmol/L (21.0-32.0); CHLORIDE,CL 103 mmol/L (98-107); GLUCOSE RANDOM 198 mg/dL (74-106); LIPASE 123 U/L (73-393); POTASSIUM,K 3.4 mmol/L (3.5-5.1); SODIUM,NA 134 mmol/L (136-145)
[2019-12-22] MEDS ORDERED: Pantoprazole 40 MG in Sodium Chloride 0.9% 20 ML IVPUSH ONE (07:36)
[2019-12-22] MEDS ORDERED: Octreotide 50 MCG/1 ML Amp IV ONE (07:38)
[2019-12-22] MEDS ORDERED: Octreotide 500 MCG in Sodium Chloride 0.9% 495 ML IV SCH (07:45)
[2019-12-22] MEDS ORDERED: Octreotide 100 MCG/1 ML Amp IV ONE (08:30)
[2019-12-22 10:08] VITALS: BP 102/67; PULSE 92
== END 2019-12-22 09:35 | disposition other institution (70) ==
LOC: MW.ED 06:23
DX: K70.31 Alcoholic cirrhosis of liver with ascites (principal); D69.6 Thrombocytopenia, unspecified; K92.2 Gastrointestinal hemorrhage, unspecified; B19.20 Unspecified viral hepatitis C without hepatic coma; J45.909 Unspecified asthma, uncomplicated; F41.9 Anxiety disorder, unspecified; F31.9 Bipolar disorder, unspecified; E03.9 Hypothyroidism, unspecified; E11.9 Type 2 diabetes mellitus without complications; F17.210 Nicotine dependence, cigarettes, uncomplicated; Z88.5 Allergy status to narcotic agent; Z98.890 Other specified postprocedural states; Z79.4 Long term (current) use of insulin; Z79.899 Other long term (current) drug therapy
CPT/HCPCS: 36415; 36430; 71045; 80053; 80307; 83605; 83690; 83735; 84484; 85025; 85610; 85730; 86850; 86870; 86900; 86901; 86902; 86920; 86921; 86922; 93005; 96361; 96365; 96375; 96376; 99291; 99292; C9113; J2354; J7040; J7120; P9016

== ENCOUNTER 2020-01-03 15:12 | Emergency (ER) | payer MEDICARE, OTHER ==
[2020-01-03] MEDS ORDERED: Sodium Chloride 0.9% 2.5 ML Syringe FLUSH PRN (15:28)
[2020-01-03] MEDS ORDERED: Sodium Chloride 0.9% 10 ML Syringe FLUSH PRN (15:28)
[2020-01-03] MEDS ORDERED: Famotidine 20 MG/2 ML SDV IVPUSH ONE (15:29)
[2020-01-03] MEDS ORDERED: Ondansetron 4 MG/2 ML SDV IVPUSH ONE (15:30)
[2020-01-03] MEDS ORDERED: Morphine 4 MG/ML Syringe IVPUSH ONE (15:30)
--- NOTE | 2020-01-03 15:34 | EDM.PDOC ---
ED HPI GENERAL MEDICAL PROBLEM - General Chief Complaint: Abdominal Pain Stated Complaint: ABDOMINAL PAIN Time Seen by Provider: 01/03/20 15:20 - History of Present Illness INITIAL COMMENTS - FREE TEXT/NARRATIVE: History of present illness: Patient presents with abdominal pain her abdominal pain is chronic and related to her ascites. She has a history of hep C alcoholism and chronic liver failure. She states she is ceased drinking months ago. She was recently admitted to the [facility] due to lack of bed space in the region for GI bleed she got home a week ago she apparently had a paracentesis during that admission with 600 mils of ascites drained. She says since she has got home she is continued to swell more more and now she is 4 times her normal size she states she is gained 30 pounds in the past month and this is all in her abdomen. She denies current drinking she denies any fever chills she denies any nausea or vomiting she says she cannot sleep she is unable to get comfortable she has trouble lying down with her breathing and nothing seems to make it better. Review of systems: As per history of present illness and below otherwise all systems reviewed and negative. Past medical history: As per history of present illness and as reviewed below otherwise noncontributory. Surgical history: As per history of present illness and as reviewed below otherwise noncontributory. Social history: No reported history of drug or alcohol abuse. Family history: As per history of present illness and as reviewed below otherwise noncontributory. Physical exam: HEENT: Atraumatic, normocephalic, pupils reactive, negative for conjunctival pallor or scleral icterus, mucous membranes moist, throat clear, neck supple, nontender, trachea midline. Lungs: Clear to auscultation, breath sounds equal bilaterally, chest nontender. Heart: S1S2, regular, negative for clicks, rubs, or JVD. Abdomen: Firm and distended with a fluid wave, she is tender in the right upper quadrant. hepatosplenomegaly present. Negative for costovertebral tenderness. Pelvis: Stable nontender. Genitourinary: Deferred. Rectal: Deferred. Extremities: Atraumatic, negative for cords or calf pain. Neurovascular unremarkable. Neuro: Awake, alert, oriented. Cranial nerves II through XII unremarkable. Cerebellum unremarkable. Motor and sensory unremarkable throughout. Exam nonfocal. Diagnostics: [] Therapeutics: [] Impression: Chronic liver failure chronic abdominal pain and ascites. [] Plan: Labs will be taken patient will be given some morphine and Zofran Pepcid for discomfort and she will be reassessed [] Definitive disposition and diagnosis as appropriate pending reevaluation and review of above. RUQ Pain Score (Numeric/FACES): 10 - Related Data Allergies Allergy/AdvReac Type Severity Reaction Status Date / Time codeine Allergy Itching Verified 01/03/20 15:19 Home Meds: Home Meds traZODone 50 mg PO BEDTIME PRN 04/22/17 [History] Furosemide 40 mg PO BID 09/09/17 [History] OXcarbazepine [Oxcarbazepine] 150 mg PO BID 09/09/17 [History] Levothyroxine Sodium [Synthroid] 75 mcg PO ACBREAKFAST 10/01/17 [History] nadoloL [Corgard] 40 mg PO DAILY 10/01/17 [History] Diphenhyd/Lidocaine/Nystatin [Magic Mouthwash] 5 - 20 ml PO Q4HR PRN 12/13/18 [History] Spironolactone 40 mg PO BID 01/17/19 [History] Lactulose [Chronulac] 10 gm PO BID 30 Days #60 cup 01/18/19 [Rx] Ondansetron [Zofran ODT] 4 mg PO Q6H PRN #30 tab.dis 01/18/19 [Rx] ClonazePAM [KlonoPIN] 1 tab PO DAILY PRN 01/03/20 [History] Insulin Glarg,Human.Rec.Analog [Lantus] 30 units SQ DAILY 01/03/20 [History] Insulin Lispro [HumaLOG] 10 units SQ TIDMEALS 01/03/20 [History] Pantoprazole [ProTONIX] 1 tab PO DAILY 01/03/20 [History] Past Medical History - Past Health History Medical/Surgical History: Denies Medical/Surgical History HEENT History: Reports: Impaired Vision Cardiovascular History: Reports: Heart Murmur Other Cardiovascular History: Takes diuretics for portal HTN and swelling Respiratory History: Reports: Asthma Gastrointestinal History: Reports: Cholelithiasis, GI Bleed, Hepatitis, Other (See Below) Other Gastrointestinal History: Gastric Ulcer, pancreatitis? 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: Musculoskeletal History: Reports: None Other Musculoskeletal History: Herniated disk, lumbar fracture, fractured right ankle Neurological History: Reports: Concussion, Other (See Below) Other Neuro History: Mild strokes 10 yrs ago Psychiatric History: Reports: Anxiety, Bipolar, Depression Endocrine/Metabolic History: Reports: Diabetes, Type II, Hypothyroidism Other Endocrine/Metabolic History: pt stated she was on thyroxine before but says to stop it a month ago Insulin Pump Model and Scales Inspector: None Hematologic History: Reports: Anemia, Other (See Below) Other Hematologic History: Pt reports low white blood cell and platelet count. Immunologic History: Reports: None Other Immunologic History: Hep-c Oncologic (Cancer) History: Reports: None Dermatologic History: Reports: Urticaria - Infectious Disease History Infectious Disease History: Reports: Hepatitis C - Past Surgical History Head Surgeries/Procedures: Reports: None HEENT Surgical History: Reports: LASIK Respiratory Surgical History: Reports: None GI Surgical History: Reports: Cholecystectomy, EGD Female Surgical History: Reports: Section, Tubal Ligation Endocrine Surgical History: Reports: None Neurological Surgical History: Reports: Lumbar Spine Musculoskeletal Surgical History: Reports: Other (See Below) Other Musculoskeletal Surgeries/Procedures:: ankle surgery, back surgery Dermatological Surgical History: Reports: None Social & Family History - Family History Family Medical History: Noncontributory - Tobacco Use Smoking Status *Q: Current Every Day Smoker Years of Tobacco use: 20 Packs/Tins Daily: 0.2 - Caffeine Use Caffeine Use: Reports: Coffee Other Caffeine Use: occasional coffee, unsweetened tea - Recreational Drug Use Recreational Drug Use: No - Living Situation & Occupation Occupation: Disabled ED ROS GENERAL - Review of Systems Review Of Systems: See Below ED EXAM, GENERAL - Physical Exam Exam: See Below Course - Vital Signs Text/Narrative:: Patient was sent here by the primary care clinic at [facility] for her chronic abdominal pain. Patient has chronic ascites that is worsening over the past several months she needs to have paracenteses set up that service is not available at our facility. I attempted to discuss this with Dr. Bills radiologist at [facility] and he is unable to set this up as an outpatient it has to be done by primary care with a proper referral during business hours. Patient is stable her labs are fairly unremarkable with chronic liver failure she has stable vital signs is not in respiratory distress she will need to be discharged home and follow-up with her primary care doctor I am sending a fax to the primary care office because she is not available by phone with instructions on where to set up and who to call to set up an outpatient paracentesis for her patient. Will be discharged home with naproxen for discomfort Last Recorded V/S: Last Vital Signs Temp 35.7 C L 01/03/20 15:16 Pulse 69 01/03/20 15:16 Resp 18 01/03/20 15:16 BP 117/81 01/03/20 15:16 Pulse Ox 99 01/03/20 15:16 - Orders/Labs/Meds Orders: Active Orders 24 hr Category Date Time Status Sodium Chloride 0.9% [Saline Flush] Med 01/03/20 15:28 Active 10 ml FLUSH ASDIRECTED PRN Sodium Chloride 0.9% [Saline Flush] Med 01/03/20 15:28 Active 2.5 ml FLUSH ASDIRECTED PRN Saline Lock Insert [OM.PC] Stat Oth 01/03/20 15:28 Ordered Medication Orders Sodium Chloride (Saline Flush) 10 ml FLUSH ASDIRECTED PRN PRN Reason: Keep Vein Open Last Admin: 01/03/20 15:44 Dose: 10 ml Documented by: AMANDEEP Sodium Chloride (Saline Flush) 2.5 ml FLUSH ASDIRECTED PRN PRN Reason: Keep Vein Open Last Admin: 01/03/20 15:44 Dose: 2.5 ml Documented by: AMANDEEP Labs: Laboratory Tests 01/03/20 01/03/20 01/03/20 Range/Units 15:42 15:42 15:42 WBC 4.22 (4.0-11.0) K/uL RBC 3.96 L (4.30-5.90) M/uL Hgb 9.8 L (12.0-16.0) g/dL Hct 32.1 L (36.0-46.0) % MCV 81.1 (80.0-98.0) fL MCH 24.7 L (27.0-32.0) pg MCHC 30.5 L (31.0-37.0) g/dL RDW Std Deviation 68.0 H (28.0-62.0) fl RDW Coeff of Jovan 23 H (11.0-15.0) % Plt Count 61 L (150-400) K/uL Neut % (Auto) 42.7 L (48.0-80.0) % Lymph % (Auto) 36.7 (16.0-40.0) % [place] % (Auto) 13.7 (0.0-15.0) % Eos % (Auto) 5.7 (0.0-7.0) % Baso % (Auto) 1.2 (0.0-1.5) % Neut # (Auto) 1.8 (1.4-5.7) K/uL Lymph # (Auto) 1.6 (0.6-2.4) K/uL [place] # (Auto) 0.6 (0.0-0.8) K/uL Eos # (Auto) 0.2 (0.0-0.7) K/uL Baso # (Auto) 0.1 (0.0-0.1) K/uL Nucleated RBC % 0.0 /100WBC Nucleated RBCs # 0 K/uL INR 1.39 APTT 27.9 (18.6-31.3) SEC Sodium 136 (136-145) mmol/L Potassium 4.0 (3.5-5.1) mmol/L Chloride 104 (98-107) mmol/L Carbon Dioxide 26.1 (21.0-32.0) mmol/L BUN 10 (7.0-18.0) mg/dL Creatinine 0.9 (0.6-1.0) mg/dL Est Cr Clr Drug Dosing 75.45 mL/min Estimated GFR (MDRD) > 60.0 ml/min Glucose 79 (74-106) mg/dL Calcium 7.7 L (8.5-10.1) mg/dL Total Bilirubin 1.8 H (0.2-1.0) mg/dL AST 81 H (15-37) IU/L ALT 51 (14-63) IU/L Alkaline Phosphatase 160 H (46-116) U/L Ammonia (19-54) ug/dL Total Protein 6.6 (6.4-8.2) g/dL Albumin 2.1 L (3.4-5.0) g/dL Globulin 4.5 H (2.6-4.0) g/dL Albumin/Globulin Ratio 0.5 L (0.9-1.6) Lipase 93 (73-393) U/L Urine Color Urine Appearance Urine pH (5.0-8.0) Ur Specific [place] (1.001-1.035) Urine Protein (NEGATIVE) mg/dL Urine Glucose (UA) (NEGATIVE) mg/dL Urine Ketones (NEGATIVE) mg/dL Urine Occult Blood (NEGATIVE) Urine Nitrite (NEGATIVE) Urine Bilirubin (NEGATIVE) Urine Urobilinogen (<2.0) EU/dL Ur Leukocyte Esterase (NEGATIVE) Urine RBC (0-2/HPF) Urine WBC (0-5/HPF) Ur Epithelial Cells (NONE-FEW) Amorphous Sediment (NEGATIVE) Urine Bacteria (NEGATIVE) Urine Mucus (NONE-MOD) Urine HCG, Qual (NEGATIVE) 01/03/20 01/03/20 01/03/20 Range/Units 15:42 16:30 16:30 WBC (4.0-11.0) K/uL RBC (4.30-5.90) M/uL Hgb (12.0-16.0) g/dL Hct (36.0-46.0) % MCV (80.0-98.0) fL MCH (27.0-32.0) pg MCHC (31.0-37.0) g/dL RDW Std Deviation (28.0-62.0) fl RDW Coeff of Jovan (11.0-15.0) % Plt Count (150-400) K/uL Neut % (Auto) (48.0-80.0) % Lymph % (Auto) (16.0-40.0) % [place] % (Auto) (0.0-15.0) % Eos % (Auto) (0.0-7.0) % Baso % (Auto) (0.0-1.5) % Neut # (Auto) (1.4-5.7) K/uL Lymph # (Auto) (0.6-2.4) K/uL [place] # (Auto) (0.0-0.8) K/uL Eos # (Auto) (0.0-0.7) K/uL Baso # (Auto) (0.0-0.1) K/uL Nucleated RBC % /100WBC Nucleated RBCs # K/uL INR APTT (18.6-31.3) SEC Sodium (136-145) mmol/L Potassium (3.5-5.1) mmol/L Chloride (98-107) mmol/L Carbon Dioxide (21.0-32.0) mmol/L BUN (7.0-18.0) mg/dL Creatinine (0.6-1.0) mg/dL Est Cr Clr Drug Dosing mL/min Estimated GFR (MDRD) ml/min Glucose (74-106) mg/dL Calcium (8.5-10.1) mg/dL Total Bilirubin (0.2-1.0) mg/dL AST (15-37) IU/L ALT (14-63) IU/L Alkaline Phosphatase (46-116) U/L Ammonia 30 (19-54) ug/dL Total Protein (6.4-8.2) g/dL Albumin (3.4-5.0) g/dL Globulin (2.6-4.0) g/dL Albumin/Globulin Ratio (0.9-1.6) Lipase (73-393) U/L Urine Color DARK YELLOW Urine Appearance CLEAR Urine pH 6.5 (5.0-8.0) Ur Specific [place] 1.025 (1.001-1.035) Urine Protein NEGATIVE (NEGATIVE) mg/dL Urine Glucose (UA) NEGATIVE (NEGATIVE) mg/dL Urine Ketones TRACE H (NEGATIVE) mg/dL Urine Occult Blood SMALL H (NEGATIVE) Urine Nitrite NEGATIVE (NEGATIVE) Urine Bilirubin NEGATIVE (NEGATIVE) Urine Urobilinogen 2.0 H (<2.0) EU/dL Ur Leukocyte Esterase TRACE H (NEGATIVE) Urine RBC 1-3 (0-2/HPF) Urine WBC 2-3 (0-5/HPF) Ur Epithelial Cells FEW (NONE-FEW) Amorphous Sediment FEW (NEGATIVE) Urine Bacteria FEW (NEGATIVE) Urine Mucus FEW (NONE-MOD) Urine HCG, Qual NEGATIVE (NEGATIVE) Meds: Medications Generic Name Dose Route Start Last Admin Trade Name Freq PRN Reason Stop Dose Admin Sodium Chloride 10 ml 01/03/20 15:28 01/03/20 15:44 Saline Flush FLUSH 10 ml ASDIRECTED PRN Administration Keep Vein Open Sodium Chloride 2.5 ml 01/03/20 15:28 01/03/20 15:44 Saline Flush FLUSH 2.5 ml ASDIRECTED PRN Administration Keep Vein Open Discontinued Medications Generic Name Dose Route Start Last Admin Trade Name Camron PRN Reason Stop Dose Admin Famotidine 20 mg 01/03/20 15:29 01/03/20 15:43 Pepcid IVPUSH 01/03/20 15:30 20 mg ONETIME ONE Administration Morphine Sulfate 4 mg 01/03/20 15:30 01/03/20 15:44 Morphine IVPUSH 01/03/20 15:31 4 mg ONETIME ONE Administration Ondansetron HCl 4 mg 01/03/20 15:30 01/03/20 15:44 Zofran IVPUSH 01/03/20 15:31 4 mg ONETIME ONE Administration Departure - Departure Time of Disposition: 17:28 Disposition: Home, Self-Care 01 Condition: Good Clinical Impression: Ascites - Discharge Information *PRESCRIPTION DRUG MONITORING PROGRAM REVIEWED*: Not Applicable *COPY OF PRESCRIPTION DRUG MONITORING REPORT IN PATIENT XENA: Not Applicable Instructions: Ascites Referrals: Marisa Doherty [Primary Care Provider] - Forms: ED Department Discharge Additional Instructions: The following information is given to patients seen in the emergency department who are being discharged to home. This information is to outline your options for follow-up care. We provide all patients seen in our emergency department with a follow-up referral. The need for follow-up, as well as the timing and circumstances, are variable depending upon the specifics of your emergency department visit. If you don't have a primary care physician on staff, we will provide you with a referral. We always advise you to contact your personal physician following an emergency department visit to inform them of the circumstance of the visit and for follow-up with them and/or the need for any referrals to a consulting specialist. The emergency department will also refer you to a specialist when appropriate. This referral assures that you have the opportunity for follow-up care with a specialist. All of these measure are taken in an effort to provide you with optimal care, which includes your follow-up. Under all circumstances we always encourage you to contact your private physician who remains a resource for coordinating your care. When calling for follow-up care, please make the office aware that this follow-up is from your recent emergency room visit. If for any reason you are refused follow-up, please contact the [facility] Emergency Department at and asked to speak to the emergency department charge nurse. You need to follow-up with your primary care doctor who needs to set you up for outpatient paracentesis at [facility]. I attempted to do this for you through the emergency department but it is after hours and I am unable to do so and they require a referral from your primary care practitioner. I have sent the contact information over to [facility] so that they can help facilitate this tomorrow during business hours. Sepsis Event Note (ED) - Evaluation Sepsis Screening Result: No Definite Risk - Focused Exam Vital Signs: Vital Signs Temp Pulse Resp BP Pulse Ox 01/03/20 15:16 35.7 C L 69 18 117/81 99 - My Orders Last 24 Hours: My Active Orders 01/03/20 15:28 Sodium Chloride 0.9% [Saline Flush] 10 ml FLUSH ASDIRECTED PRN Sodium Chloride 0.9% [Saline Flush] 2.5 ml FLUSH ASDIRECTED PRN Saline Lock Insert [OM.PC] Stat - Assessment/Plan Last 24 Hours: My Active Orders 01/03/20 15:28 Sodium Chloride 0.9% [Saline Flush] 10 ml FLUSH ASDIRECTED PRN Sodium Chloride 0.9% [Saline Flush] 2.5 ml FLUSH ASDIRECTED PRN Saline Lock Insert [OM.PC] Stat
[2020-01-03 16:19] LABS: BLOOD UREA NITROGEN,BUN 10 mg/dL (7.0-18.0); CARBON DIOXIDE,CO2 26.1 mmol/L (21.0-32.0); CHLORIDE,CL 104 mmol/L (98-107); GLUCOSE RANDOM 79 mg/dL (74-106); LIPASE 93 U/L (73-393); SODIUM,NA 136 mmol/L (136-145)
[2020-01-03 20:08] VITALS: BP 102/82; PULSE 60
== END 2020-01-03 18:00 | disposition home or self-care (01) ==
LOC: MW.ED 15:12
DX: K72.10 Chronic hepatic failure without coma (principal); R18.8 Other ascites; J45.909 Unspecified asthma, uncomplicated; F31.9 Bipolar disorder, unspecified; F41.9 Anxiety disorder, unspecified; E11.9 Type 2 diabetes mellitus without complications; E03.9 Hypothyroidism, unspecified; F17.210 Nicotine dependence, cigarettes, uncomplicated; Z79.4 Long term (current) use of insulin; Z79.899 Other long term (current) drug therapy; Z88.5 Allergy status to narcotic agent; Z86.73 Personal history of transient ischemic attack (TIA), and cerebral infarction without residual deficits
CPT/HCPCS: 36415; 80053; 81001; 81025; 82140; 83690; 85025; 85610; 85730; 96374; 96375; 99284; J2270; J2405; J3490; 99283

== ENCOUNTER 2020-02-03 15:39 | Emergency (ER) | payer MEDICARE, OTHER ==
[2020-02-03] MEDS ORDERED: Ondansetron 4 MG/2 ML SDV IVPUSH ONE (15:45)
[2020-02-03] MEDS ORDERED: Sodium Chloride 0.9% 2.5 ML Syringe FLUSH PRN (15:45)
[2020-02-03] MEDS ORDERED: Sodium Chloride 0.9% 10 ML Syringe FLUSH PRN (15:45)
[2020-02-03] MEDS ORDERED: Pantoprazole 40 MG in Sodium Chloride 0.9% 10 ML IV ONE (15:45)
[2020-02-03] MEDS ORDERED: Sodium Chloride 0.9% 1,000 ML IV ONE ×5 (15:45→20:17)
[2020-02-03] MEDS ORDERED: LORazepam 2 MG/ML SDV IVPUSH ONE (15:50)
[2020-02-03] MEDS ORDERED: Metoclopramide 10 MG/2 ML SDV IVPUSH ONE (15:51)
[2020-02-03] MEDS ORDERED: Octreotide 500 MCG in Sodium Chloride 0.9% 495 ML IV SCH (16:15)
[2020-02-03 16:25] LABS: BLOOD UREA NITROGEN,BUN 24 mg/dL (7.0-18.0); CARBON DIOXIDE,CO2 26.3 mmol/L (21.0-32.0); CHLORIDE,CL 106 mmol/L (98-107); GLUCOSE RANDOM 174 mg/dL (74-106); LIPASE 141 U/L (73-393); SODIUM,NA 136 mmol/L (136-145)
--- NOTE | 2020-02-03 16:28 | EDM.PDOC ---
ED HPI GENERAL MEDICAL PROBLEM - General Chief Complaint: Gastrointestinal Problem Stated Complaint: EMS ARRIVAL Time Seen by Provider: 02/03/20 15:43 Source of Information: Reports: Patient, EMS History Limitations: Reports: No Limitations - History of Present Illness INITIAL COMMENTS - FREE TEXT/NARRATIVE: History of present illness: [Patient is 44-year-old female with a history of hepatitis C, esophageal varices, liver cirrhosis who presents to the ER with hematemesis. She has had this happen before. She has required previous blood transfusions. She drinks alcohol regularly and in spite of being told to cease drinking she has not been able to do so. Staff reports to me that patient comes into the ER fairly regularly for similar symptoms. Patient tells me that she started having nausea and vomiting this morning, occasional blood and clots in the vomit as well. Denies chest pain, shortness of breath, fever. Has not taken any medicine at home to try and relieve her symptoms.] Review of systems: As per history of present illness and below otherwise all systems reviewed and negative. Past medical history: As per history of present illness and as reviewed below otherwise noncontributory. Surgical history: As per history of present illness and as reviewed below otherwise noncontributory. Social history: No reported history of drug or alcohol abuse. Family history: As per history of present illness and as reviewed below otherwise noncontributory. Physical exam: General: Awake, alert, no acute distress, A&O X3. HEENT: Atraumatic, normocephalic, pupils reactive, negative for conjunctival pallor or scleral icterus, mucous membranes moist, neck supple, nontender, trachea midline, dried blood in the perioral region Lungs: Clear to auscultation, breath sounds equal bilaterally, chest nontender. Heart: RRR, normal S1S2, no JVD. Abdomen: Soft, mildly diffusely tender, no significant distension. Pelvis: Stable nontender. Genitourinary: Deferred. Rectal: Deferred. Extremities: Atraumatic, no edema, Neurovascular unremarkable. Neuro: Motor and sensory grossly intact throughout. Exam nonfocal. Diagnostics: [] Therapeutics: [] Impression: [] Plan: [] Definitive disposition and diagnosis as appropriate pending reevaluation and review of above. abdomen Pain Score (Numeric/FACES): 10 - Related Data Allergies Allergy/AdvReac Type Severity Reaction Status Date / Time codeine Allergy Itching Verified 02/03/20 16:59 Home Meds: Home Meds traZODone 50 mg PO BEDTIME PRN 04/22/17 [History] Furosemide 40 mg PO BID 09/09/17 [History] OXcarbazepine [Oxcarbazepine] 150 mg PO BID 09/09/17 [History] Levothyroxine Sodium [Synthroid] 75 mcg PO ACBREAKFAST 10/01/17 [History] nadoloL [Corgard] 40 mg PO DAILY 10/01/17 [History] Diphenhyd/Lidocaine/Nystatin [Magic Mouthwash] 5 - 20 ml PO Q4HR PRN 12/13/18 [History] Spironolactone 40 mg PO BID 01/17/19 [History] Lactulose [Chronulac] 10 gm PO BID 30 Days #60 cup 01/18/19 [Rx] Ondansetron [Zofran ODT] 4 mg PO Q6H PRN #30 tab.dis 01/18/19 [Rx] ClonazePAM [KlonoPIN] 1 tab PO DAILY PRN 01/03/20 [History] Insulin Glarg,Human.Rec.Analog [Lantus] 30 units SQ DAILY 01/03/20 [History] Insulin Lispro [HumaLOG] 10 units SQ TIDMEALS 01/03/20 [History] Naproxen [Naprosyn] 500 mg PO Q12HR #20 tab 01/03/20 [Rx] Pantoprazole [ProTONIX] 1 tab PO DAILY 01/03/20 [History] Past Medical History - Past Health History Medical/Surgical History: Denies Medical/Surgical History HEENT History: Reports: Impaired Vision Cardiovascular History: Reports: Heart Murmur Other Cardiovascular History: Takes diuretics for portal HTN and swelling Respiratory History: Reports: Asthma Gastrointestinal History: Reports: Cholelithiasis, GI Bleed, Hepatitis, Other (See Below) Other Gastrointestinal History: Gastric Ulcer, pancreatitis? 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 Immunologic History: Reports: None Other Immunologic History: Hep-c Oncologic (Cancer) History: Reports: None Dermatologic History: Reports: Urticaria - Infectious Disease History Infectious Disease History: Reports: Hepatitis C - Past Surgical History Head Surgeries/Procedures: Reports: None HEENT Surgical History: Reports: LASIK Respiratory Surgical History: Reports: None GI Surgical History: Reports: Cholecystectomy, EGD Female Surgical History: Reports: Section, Tubal Ligation Endocrine Surgical History: Reports: None Neurological Surgical History: Reports: Lumbar Spine Musculoskeletal Surgical History: Reports: Other (See Below) Other Musculoskeletal Surgeries/Procedures:: ankle surgery, back surgery Dermatological Surgical History: Reports: None Social & Family History - Family History Family Medical History: Noncontributory - Caffeine Use Caffeine Use: Reports: Coffee Other Caffeine Use: occasional coffee, unsweetened tea - Living Situation & Occupation Occupation: Disabled ED ROS GENERAL - Review of Systems Review Of Systems: Comprehensive ROS is negative, except as noted in HPI. ED EXAM, GI/ABD - Physical Exam Exam: See Below (see h and p) Course - Vital Signs Text/Narrative:: Patient is receiving a unit of packed red blood cells here. She had no subsequent episodes of hematemesis or vomiting since arrival to the ER. Medications provided seem to have helped yelitza her symptoms. Given her hemoglobin level and her significant medical history including varices, cirrhosis, hepatitis C I believe she requires admission, transfer, GI consult, likely will require endoscopy with variceal banding. She is remained hemodynamically stable throughout her emergency department stay. She received a fluid bolus. Started on Protonix bolus and drip along with octreotide infusion. She was stable at the time of flight to transport to [place] for further work-up and evaluation there. Last Recorded V/S: Last Vital Signs Temp 36.2 C 02/03/20 15:45 Pulse 83 02/03/20 17:11 Resp 18 02/03/20 15:45 BP 104/65 02/03/20 17:11 Pulse Ox 94 L 02/03/20 17:11 - Orders/Labs/Meds Orders: Active Orders 24 hr Category Date Time Status ANTIBODY IDENTIFICATION [BBK] Stat Lab 02/03/20 16:02 Results RED BLOOD CELLS LP [BBK] Stat Lab 02/03/20 16:02 Results TYPE AND SCREEN [BBK] Stat Lab 02/03/20 16:02 Results Octreotide [SandoSTATIN] 500 mcg Med 02/03/20 16:15 Active Sodium Chloride 0.9% [Normal Saline] 495 ml IV Q10H Sodium Chloride 0.9% [Normal Saline] 1,000 ml Med 02/03/20 18:00 Active IV ASDIRECTED Sodium Chloride 0.9% [Saline Flush] Med 02/03/20 15:45 Active 10 ml FLUSH ASDIRECTED PRN Sodium Chloride 0.9% [Saline Flush] Med 02/03/20 15:45 Active 2.5 ml FLUSH ASDIRECTED PRN Saline Lock Insert [OM.PC] Stat Oth 02/03/20 15:45 Ordered Transfuse Red Blood Cells [COMM] Stat Oth 02/03/20 17:53 Ordered Medication Orders Octreotide Acetate 500 mcg/ (Sodium Chloride) 500 mls @ 50 mls/hr IV Q10H JOYCE Last Admin: 02/03/20 17:01 Dose: 50 mcg/hr, 50 mls/hr Documented by: NELLI Sodium Chloride (Normal Saline) 1,000 mls @ 150 mls/hr IV ASDIRECTED JOYCE Sodium Chloride (Saline Flush) 10 ml FLUSH ASDIRECTED PRN PRN Reason: Keep Vein Open Last Admin: 02/03/20 16:10 Dose: 10 ml Documented by: NELLI Sodium Chloride (Saline Flush) 2.5 ml FLUSH ASDIRECTED PRN PRN Reason: Keep Vein Open Last Admin: 02/03/20 16:10 Dose: 2.5 ml Documented by: NELLI Labs: Laboratory Tests 02/03/20 02/03/20 02/03/20 Range/Units 15:45 15:45 15:45 WBC 7.98 (4.0-11.0) K/uL RBC 2.87 L (4.30-5.90) M/uL Hgb 7.3 L (12.0-16.0) g/dL Hct 24.0 L (36.0-46.0) % MCV 83.6 (80.0-98.0) fL MCH 25.4 L (27.0-32.0) pg MCHC 30.4 L (31.0-37.0) g/dL RDW Std Deviation 87.9 H (28.0-62.0) fl RDW Coeff of Jovan 29 H (11.0-15.0) % Plt Count 91 L (150-400) K/uL Neut % (Auto) 55.1 (48.0-80.0) % Lymph % (Auto) 29.4 (16.0-40.0) % Kay % (Auto) 11.4 (0.0-15.0) % Eos % (Auto) 3.6 (0.0-7.0) % Baso % (Auto) 0.5 (0.0-1.5) % Neut # (Auto) 4.4 (1.4-5.7) K/uL Lymph # (Auto) 2.4 (0.6-2.4) K/uL Kay # (Auto) 0.9 H (0.0-0.8) K/uL Eos # (Auto) 0.3 (0.0-0.7) K/uL Baso # (Auto) 0.0 (0.0-0.1) K/uL Nucleated RBC % 0.0 /100WBC Nucleated RBCs # 0 K/uL INR 1.74 APTT 31.2 (18.6-31.3) SEC Lactate 2.9 H* (0.20-2.00) mmol/L Sodium (136-145) mmol/L Potassium (3.5-5.1) mmol/L Chloride (98-107) mmol/L Carbon Dioxide (21.0-32.0) mmol/L BUN (7.0-18.0) mg/dL Creatinine (0.6-1.0) mg/dL Est Cr Clr Drug Dosing Estimated GFR (MDRD) ml/min Glucose (74-106) mg/dL Calcium (8.5-10.1) mg/dL Total Bilirubin (0.2-1.0) mg/dL AST (15-37) IU/L ALT (14-63) IU/L Alkaline Phosphatase (46-116) U/L Troponin I (0.000-0.056) ng/mL Total Protein (6.4-8.2) g/dL Albumin (3.4-5.0) g/dL Globulin (2.6-4.0) g/dL Albumin/Globulin Ratio (0.9-1.6) Lipase (73-393) U/L HCG, Qual (NEG) Ethyl Alcohol mg/dL Blood Type Antibody Screen Antibody Identification Crossmatch 02/03/20 02/03/20 02/03/20 Range/Units 15:45 15:45 16:02 WBC (4.0-11.0) K/uL RBC (4.30-5.90) M/uL Hgb (12.0-16.0) g/dL Hct (36.0-46.0) % MCV (80.0-98.0) fL MCH (27.0-32.0) pg MCHC (31.0-37.0) g/dL RDW Std Deviation (28.0-62.0) fl RDW Coeff of Jovan (11.0-15.0) % Plt Count (150-400) K/uL Neut % (Auto) (48.0-80.0) % Lymph % (Auto) (16.0-40.0) % Kay % (Auto) (0.0-15.0) % Eos % (Auto) (0.0-7.0) % Baso % (Auto) (0.0-1.5) % Neut # (Auto) (1.4-5.7) K/uL Lymph # (Auto) (0.6-2.4) K/uL Kay # (Auto) (0.0-0.8) K/uL Eos # (Auto) (0.0-0.7) K/uL Baso # (Auto) (0.0-0.1) K/uL Nucleated RBC % /100WBC Nucleated RBCs # K/uL INR APTT (18.6-31.3) SEC Lactate (0.20-2.00) mmol/L Sodium 136 (136-145) mmol/L Potassium 5.0 (3.5-5.1) mmol/L Chloride 106 (98-107) mmol/L Carbon Dioxide 26.3 (21.0-32.0) mmol/L BUN 24 H (7.0-18.0) mg/dL Creatinine 0.8 (0.6-1.0) mg/dL Est Cr Clr Drug Dosing TNP Estimated GFR (MDRD) > 60.0 ml/min Glucose 174 H (74-106) mg/dL Calcium 7.6 L (8.5-10.1) mg/dL Total Bilirubin 1.7 H (0.2-1.0) mg/dL AST 68 H (15-37) IU/L ALT 52 (14-63) IU/L Alkaline Phosphatase 172 H (46-116) U/L Troponin I < 0.050 (0.000-0.056) ng/mL Total Protein 5.7 L (6.4-8.2) g/dL Albumin 1.7 L (3.4-5.0) g/dL Globulin 4.0 (2.6-4.0) g/dL Albumin/Globulin Ratio 0.4 L (0.9-1.6) Lipase 141 (73-393) U/L HCG, Qual NEGATIVE (NEG) Ethyl Alcohol < 3.0 mg/dL Blood Type O POSITIVE Antibody Screen POSITIVE Antibody Identification Anti-E Crossmatch See Detail Meds: Medications Generic Name Dose Route Start Last Admin Trade Name Freq PRN Reason Stop Dose Admin Octreotide Acetate 500 mcg/ 500 mls @ 50 mls/hr 02/03/20 16:15 02/03/20 17:01 Sodium Chloride IV 50 mcg/hr Q10H JOYCE 50 mls/hr Administration 50 MCG/HR Sodium Chloride 1,000 mls @ 150 mls/hr 02/03/20 18:00 Normal Saline IV ASDIRECTED JOYCE Sodium Chloride 10 ml 02/03/20 15:45 02/03/20 16:10 Saline Flush FLUSH 10 ml ASDIRECTED PRN Administration Keep Vein Open Sodium Chloride 2.5 ml 02/03/20 15:45 02/03/20 16:10 Saline Flush FLUSH 2.5 ml ASDIRECTED PRN Administration Keep Vein Open Discontinued Medications Generic Name Dose Route Start Last Admin Trade Name Freq PRN Reason Stop Dose Admin Sodium Chloride 1,000 mls @ 999 mls/hr 02/03/20 15:45 02/03/20 16:02 Normal Saline IV 02/03/20 16:45 999 mls/hr .Bolus ONE Administration Pantoprazole Sodium 40 mg/ 10 mls @ 300 mls/hr 02/03/20 15:45 02/03/20 16:07 Sodium Chloride IV 02/03/20 15:46 300 mls/hr NOW ONE Administration Lorazepam 1 mg 02/03/20 15:50 02/03/20 16:05 Ativan IVPUSH 02/03/20 15:51 1 mg ONETIME ONE Administration Metoclopramide HCl 10 mg 02/03/20 15:51 02/03/20 16:03 Reglan IVPUSH 02/03/20 15:52 10 mg ONETIME ONE Administration Ondansetron HCl 4 mg 02/03/20 15:45 02/03/20 16:02 Zofran IVPUSH 02/03/20 15:46 4 mg ONETIME ONE Administration Departure - Departure Time of Disposition: 18:19 Disposition: DC/Tfer to Acute Hospital 02 Condition: Poor Clinical Impression: Hematemesis Qualifiers: Nausea presence: with nausea Qualified Code(s): K92.0 - Hematemesis Cirrhosis Qualifiers: Hepatic cirrhosis type: alcoholic cirrhosis Ascites presence: with ascites Qualified Code(s): K70.31 - Alcoholic cirrhosis of liver with ascites Anemia Qualifiers: Anemia type: unspecified type Qualified Code(s): D64.9 - Anemia, unspecified - Discharge Information Referrals: Philly Keith MD [Primary Care Provider] - Forms: ED Department Discharge Critical Care Note - Critical Care Note Total Time (mins): 55 Comments: Critical care time for hematemesis, significant anemia, hemoglobin 7.3, mon itoring hemodynamics. Consults with [facility]. Frequent reexaminations. Sepsis Event Note (ED) - Focused Exam Vital Signs: Vital Signs Temp Pulse Resp BP Pulse Ox 02/03/20 17:11 83 104/65 94 L 02/03/20 16:26 104 H 92/58 L 98 02/03/20 15:55 65 108/65 98 02/03/20 15:45 36.2 C 94 18 108/65 98 - My Orders Last 24 Hours: My Active Orders 02/03/20 15:45 Sodium Chloride 0.9% [Saline Flush] 10 ml FLUSH ASDIRECTED PRN Sodium Chloride 0.9% [Saline Flush] 2.5 ml FLUSH ASDIRECTED PRN Saline Lock Insert [OM.PC] Stat 02/03/20 16:02 ANTIBODY IDENTIFICATION [BBK] Stat RED BLOOD CELLS LP [BBK] Stat TYPE AND SCREEN [BBK] Stat 02/03/20 16:15 Octreotide [SandoSTATIN] 500 mcg Sodium Chloride 0.9% [Normal Saline] 495 ml IV Q10H 02/03/20 17:53 Transfuse Red Blood Cells [COMM] Stat 02/03/20 18:00 Sodium Chloride 0.9% [Normal Saline] 1,000 ml IV ASDIRECTED - Assessment/Plan Last 24 Hours: My Active Orders 02/03/20 15:45 Sodium Chloride 0.9% [Saline Flush] 10 ml FLUSH ASDIRECTED PRN Sodium Chloride 0.9% [Saline Flush] 2.5 ml FLUSH ASDIRECTED PRN Saline Lock Insert [OM.PC] Stat 02/03/20 16:02 ANTIBODY IDENTIFICATION [BBK] Stat RED BLOOD CELLS LP [BBK] Stat TYPE AND SCREEN [BBK] Stat 02/03/20 16:15 Octreotide [SandoSTATIN] 500 mcg Sodium Chloride 0.9% [Normal Saline] 495 ml IV Q10H 02/03/20 17:53 Transfuse Red Blood Cells [COMM] Stat 02/03/20 18:00 Sodium Chloride 0.9% [Normal Saline] 1,000 ml IV ASDIRECTED
--- NOTE | 2020-02-03 16:50 | CR ---
INDICATION: Hematemesis. TECHNIQUE: AP upright portable chest. COMPARISON: December 22, 2019. FINDINGS: Clear lungs. Prominence of left hilum is likely related to patient position. Normal heart size and pulmonary vascularity. The included skeleton is unremarkable. IMPRESSION: Mild left hilar prominence likely due to patient positioning. When the clinical picture allows, a repeat chest x-ray with deeper inspiration including a PA and lateral view may be helpful. Dictated by Justino Maya MD @ Feb 03 2020 4:48PM Signed by Dr. Justino Maya @ Feb 03 2020 4:49PM
[2020-02-03] MEDS ORDERED: Sodium Chloride 0.9% 1,000 ML IV SCH (18:00)
[2020-02-03] MEDS ORDERED: Pantoprazole 80 MG in Sodium Chloride 0.9% 100 ML IV ONE (18:30)
[2020-02-03] MEDS ORDERED: Pantoprazole 80 MG in Sodium Chloride 0.9% 20 ML IVPUSH ONE (19:39)
[2020-02-03 20:30] VITALS: BP 79/40; PULSE 93
== END 2020-02-03 21:35 ==
LOC: MW.ED 15:39
DX: K70.31 Alcoholic cirrhosis of liver with ascites (principal); K92.0 Hematemesis; D64.9 Anemia, unspecified; J45.909 Unspecified asthma, uncomplicated; F31.9 Bipolar disorder, unspecified; F41.9 Anxiety disorder, unspecified; E11.9 Type 2 diabetes mellitus without complications; E03.9 Hypothyroidism, unspecified; Z88.5 Allergy status to narcotic agent; Z79.899 Other long term (current) drug therapy; Z79.4 Long term (current) use of insulin
CPT/HCPCS: 36430; 71045; 80053; 80307; 83605; 83690; 84484; 84703; 85025; 85610; 85730; 86850; 86870; 86900; 86901; 86902; 86920; 86921; 86922; 96365; 96366; 96367; 96368; 96375; 96376; 99285; C9113; J2060; J2354; J2405; J2765; J7030; J7040; P9016

== ENCOUNTER 2020-12-30 15:43 | Emergency (ER) | payer MEDICARE, OTHER, MEDICAID ==
[2020-12-30 16:45] VITALS: BP 148/79; PULSE 91
[2020-12-30] MEDS ORDERED: Benzocaine 20% Topical Spray UD MUCMEM ONE (16:53)
[2020-12-30] MEDS ORDERED: Lidocaine 2% Viscous Solution 15 ML Cup PO ONE (16:53)
--- NOTE | 2020-12-30 16:53 | EDM.PDOC ---
ED HPI GENERAL MEDICAL PROBLEM - General Chief Complaint: ENT Problem Stated Complaint: POSSIBLE TOOTH INFECTION Time Seen by Provider: 12/30/20 15:46 Source of Information: Reports: Patient History Limitations: Reports: No Limitations - History of Present Illness INITIAL COMMENTS - FREE TEXT/NARRATIVE: HISTORY AND PHYSICAL: History of present illness: Patient is a 45-year-old female who presents to the emergency room with concerns of a dental infection. She states that earlier last week she had broken part of her tooth (left upper #13) resulting in pain. Over the past 2 days she has had pain to #20, decay is noted. She is unable to see her dentist until 01/05/2021. She states the gumline is tender and concerned she has an infection. Patient denies any fever, chills, headache, change in vision, syncope or near syncope. Denies any chest pain, back pain, shortness of breath or cough. Denies any GI or symptoms. Patient has been eating and drinking appropriately. No recent travel or sick contacts. Review of systems: As per history of present illness and below otherwise all systems reviewed and negative. Past medical history: As per history of present illness and as reviewed below otherwise noncontributory. Surgical history: As per history of present illness and as reviewed below otherwise noncontributory. Social history: See social history for further information Family history: As per history of present illness and as reviewed below otherwise noncontributory. Physical exam: General: Well developed and well nourished. Alert and orientated x 3. Nontoxic in appearance and in no acute distress. Vital signs are stable and have been reviewed by me. Nursing notes were reviewed. HEENT: Atraumatic, normocephalic, pupils equal and reactive bilaterally, negative for conjunctival pallor or scleral icterus, mucous membranes moist, tooth #13 is absent with redness at the socket, no nerve/root exposure. Severe decay and caries noted to the left lower jawline #20 with surrounding erythema. No oral floor tenderness. TMs normal bilaterally, throat clear, neck supple, nontender, trachea midline. No drooling or trismus noted. No meningeal signs. No hot potato voice noted. Lungs: Clear to auscultation bilaterally. Normal work of breathing, no accessory muscles used. Heart: S1S2, regular rate and rhythm Abdomen: Soft, nondistended, nontender. Skin: Intact, warm, dry. No lesions or rashes noted. Hematologic: No petechiae or purpra. Mucosa appropriate color and normal nail bed color and refill. Extremities: Atraumatic, moves all extremities per self without difficulty or deficits. Neurovascular unremarkable. Neuro: Awake, alert, oriented. Cranial nerves II through XII unremarkable. Cerebellum unremarkable. Motor and sensory unremarkable throughout. Exam nonfocal. Psychiatric: Mood and affect are appropriate. Normal thought process. Answering questions appropriately. Please note that the patient was seen and evaluated during the 2019 SARS-CoV-2 novel coronavirus pandemic period. Community viral transmission is ongoing at time of this encounter and the emergency department is operating under pandemic response procedures. Medical Decision Making: Patient is a 45-year-old female who presents to the emergency room with concerns of a dental infection. She states she has a appointment with her dentist on Tuesday but is unable to wait due to the pain. She has been trying [id number] medications without any relief. She does have dental decay and caries noted with mild redness at the gumline of #20. Will place her on antibiotics if this is an early abscess. I have talked with the patient about today's findings, in addition to providing specific details for plan of care. Reassessment at the time of disposition demonstrates that the patient is in no acute distress. The patient is stable for discharge, counseling was provided and we discussed in great detail signs and symptoms that would prompt them to return to the Emergency Department. Medication, follow up and supportive care measures were reviewed and discussed. Voices understanding and is agreeable to plan of care. Denies any further questions or concerns at this time. Diagnostics: None Therapeutics: Dental balls Prescription: Augmentin, tramadol Impression: Dental caries Dentalgia Plan: 1. You were evaluated today on an emergent basis. 2. Tylenol and/or ibuprofen as needed for pain management. "Tooth Balls" have been given to you; apply along the gumline every 2-3 hours as needed. Do not swallow these; external use only. 3. We encourage you to follow up with a dentist for re-evaluation and further care/management. 4. If your symptoms should worsen, new symptoms develop or any of the signs and symptoms we discussed should arise please return to the emergency room or call 911 (if needed). Definitive disposition and diagnosis as appropriate pending reevaluation and review of above. Left Lower Jaw Pain Score (Numeric/FACES): 10 - Related Data Allergies Allergy/AdvReac Type Severity Reaction Status Date / Time codeine Allergy Itching Verified 12/30/20 15:58 Home Meds: Home Meds traZODone 50 mg PO BEDTIME PRN 04/22/17 [History] Furosemide 40 mg PO BID 09/09/17 [History] OXcarbazepine [Oxcarbazepine] 150 mg PO BID 09/09/17 [History] Levothyroxine Sodium [Synthroid] 75 mcg PO ACBREAKFAST 10/01/17 [History] nadoloL [Corgard] 40 mg PO DAILY 10/01/17 [History] Diphenhyd/Lidocaine/Nystatin [Magic Mouthwash] 5 - 20 ml PO Q4HR PRN 12/13/18 [History] Spironolactone 40 mg PO BID 01/17/19 [History] Lactulose [Chronulac] 10 gm PO BID 30 Days #60 cup 01/18/19 [Rx] Ondansetron [Zofran ODT] 4 mg PO Q6H PRN #30 tab.dis 01/18/19 [Rx] ClonazePAM [KlonoPIN] 1 tab PO DAILY PRN 01/03/20 [History] Insulin Glarg,Human.Rec.Analog [Lantus] 30 units SQ DAILY 01/03/20 [History] Insulin Lispro [HumaLOG] 10 units SQ TIDMEALS 01/03/20 [History] Naproxen [Naprosyn] 500 mg PO Q12HR #20 tab 01/03/20 [Rx] Pantoprazole [ProTONIX] 1 tab PO DAILY 01/03/20 [History] Amoxicillin/Clavulanate K [Augmentin 875-125 MG] 1 tab PO BID 7 Days #14 tablet 12/30/20 [Rx] traMADol [Ultram] 50 mg PO Q4H PRN #15 tab 12/30/20 [Rx] Past Medical History - Past Health History Medical/Surgical History: Denies Medical/Surgical History HEENT History: Reports: Impaired Vision Cardiovascular History: Reports: Heart Murmur Other Cardiovascular History: Takes diuretics for portal HTN and swelling Respiratory History: Reports: Asthma Gastrointestinal History: Reports: Cholelithiasis, GI Bleed, Hepatitis, Other (See Below) Other Gastrointestinal History: Gastric Ulcer, pancreatitis? 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 Immunologic History: Reports: None Other Immunologic History: Hep-c Oncologic (Cancer) History: Reports: None Dermatologic History: Reports: Urticaria - Infectious Disease History Infectious Disease History: Reports: Hepatitis C - Past Surgical History Head Surgeries/Procedures: Reports: None HEENT Surgical History: Reports: LASIK Cardiovascular Surgical History: Reports: None Respiratory Surgical History: Reports: None GI Surgical History: Reports: Cholecystectomy, EGD Other GI Surgeries/Procedures: esophageal varicies Female Surgical History: Reports: Section, Tubal Ligation Endocrine Surgical History: Reports: None Neurological Surgical History: Reports: Lumbar Spine Musculoskeletal Surgical History: Reports: Other (See Below) Other Musculoskeletal Surgeries/Procedures:: ankle surgery, back surgery Dermatological Surgical History: Reports: None Social & Family History - Family History Family Medical History: No Pertinent Family History - Tobacco Use Tobacco Use Status *Q: Current Every Day Tobacco User Years of Tobacco use: 15 Packs/Tins Daily: 1 - Caffeine Use Caffeine Use: Reports: Coffee Other Caffeine Use: occasional coffee, unsweetened tea - Recreational Drug Use Recreational Drug Use: No - Living Situation & Occupation Occupation: Disabled ED ROS ENT - Review of Systems Review Of Systems: Comprehensive ROS is negative, except as noted in HPI. ED EXAM, ENT - Physical Exam Exam: See Below (See dictation) Course - Vital Signs Last Recorded V/S: Last Vital Signs Temp 97.6 F 12/30/20 16:43 Pulse 91 12/30/20 16:43 Resp 16 12/30/20 16:43 BP 148/79 H 12/30/20 16:43 Pulse Ox 98 12/30/20 16:43 - Orders/Labs/Meds Meds: Medications Discontinued Medications Generic Name Dose Route Start Last Admin Trade Name Freq PRN Reason Stop Dose Admin Benzocaine 2 each 12/30/20 16:53 Benzocaine 20% Topical [place] [facility] MUCMEM 12/30/20 16:54 ONETIME ONE Lidocaine HCl 15 ml 12/30/20 16:53 Lidocaine 2% Viscous Solution 15 Ml Cup PO 12/30/20 16:54 ONETIME ONE Departure - Departure Time of Disposition: 16:52 Disposition: Home, Self-Care 01 Clinical Impression: Dental caries, Dentalgia - Discharge Information Prescriptions: Amoxicillin/Clavulanate K [Augmentin 875-125 MG] 1 tab PO BID 7 Days #14 tablet traMADol [Ultram] 50 mg PO Q4H PRN #15 tab PRN Reason: Pain Instructions: Dental Caries, Adult, [id number] Referrals: Philly Keith MD [Primary Care Provider] - Forms: ED Department Discharge Additional Instructions: The following information is given to patients seen in the emergency department who are being discharged to home. This information is to outline your options for follow-up care. We provide all patients seen in our emergency department with a follow-up referral. The need for follow-up, as well as the timing and circumstances, are variable depending upon the specifics of your emergency department visit. If you don't have a primary care physician on staff, we will provide you with a referral. We always advise you to contact your personal physician following an emergency department visit to inform them of the circumstance of the visit and for follow-up with them and/or the need for any referrals to a consulting specialist. The emergency department will also refer you to a specialist when appropriate. This referral assures that you have the opportunity for follow-up care with a specialist. All of these measure are taken in an effort to provide you with optimal care, which includes your follow-up. Under all circumstances we always encourage you to contact your private physician who remains a resource for coordinating your care. When calling for follow-up care, please make the office aware that this follow-up is from your recent emergency room visit. If for any reason you are refused follow-up, please contact the [facility] Emergency Department at and asked to speak to the emergency department charge nurse. [facility] [address] [place] [address] [facility] [address] [place] [address] Thank you for choosing the [facility] emergency department in [place] for your medical needs today. It was a pleasure caring for you. Today you were seen in the emergency department for dental pain. 1. You were evaluated today on an emergent basis. Your 2. Tylenol and/or ibuprofen as needed for pain management. "Tooth Balls" have been given to you; apply along the gumline every 2-3 hours as needed. Do not swallow these; external use only. 3. We encourage you to follow up with a dentist for re-evaluation and further care/management on Tuesday. 4. If your symptoms should worsen, new symptoms develop or any of the signs and symptoms we discussed should arise please return to the emergency room or call 911 (if needed). Sepsis Event Note (ED) - Evaluation Sepsis Screening Result: No Definite Risk - Focused Exam Vital Signs: Vital Signs Temp Pulse Resp BP Pulse Ox 12/30/20 16:43 97.6 F 91 16 148/79 H 98 12/30/20 16:01 99.1 F 90 20 149/90 H
[2020-12-30] MEDS ORDERED: Benzocaine 20% Topical Spray UD ONE (17:16)
[2020-12-30] MEDS ORDERED: traMADol 50 MG Tab PO ONE (17:27)
== END 2020-12-30 17:35 | disposition home or self-care (01) ==
LOC: MW.ED 15:43
DX: K02.9 Dental caries, unspecified (principal); J45.909 Unspecified asthma, uncomplicated; E11.9 Type 2 diabetes mellitus without complications; E03.9 Hypothyroidism, unspecified; Z88.5 Allergy status to narcotic agent; Z72.0 Tobacco use; Z79.4 Long term (current) use of insulin; Z79.899 Other long term (current) drug therapy
CPT/HCPCS: 99282; A9270

== ENCOUNTER 2021-01-02 10:29 | Emergency (ER) | payer MEDICARE, OTHER, MEDICAID ==
[2021-01-02] MEDS ORDERED: Ketorolac 30 MG/ML SDV IM ONE (10:52)
--- NOTE | 2021-01-02 10:59 | EDM.PDOC ---
ED HPI GENERAL MEDICAL PROBLEM - General Chief Complaint: ENT Problem Stated Complaint: TOOTH PAIN Time Seen by Provider: 01/02/21 10:36 - History of Present Illness INITIAL COMMENTS - FREE TEXT/NARRATIVE: History of present illness: [] The patient has severe pain in the left jaw. She has caries and bad teeth. She says the swelling outside of the face is new even though she took amoxicillin 4 tablets that she had leftover from her prior prescription. She is trying to get into see a dentist and has an appointment 05 January 2021. Review of systems: As per history of present illness and below otherwise all systems reviewed and negative. Past medical history: As per history of present illness and as reviewed below otherwise noncontributory. Surgical history: As per history of present illness and as reviewed below otherwise noncontributory. Social history: No reported history of drug or alcohol abuse. Family history: As per history of present illness and as reviewed below otherwise noncontributory. Physical exam: Constitutional - well developed, well-nourished and in no acute distress HEENT -patient has little swelling external to the lower jaw on the left and not near the midline. Patient has normal voice no trismus. She has missing tooth #18. She has caries and tenderness in #17. Normocephalic, no evidence of trauma - external nose and mouth normal - no mass in neck and no JVD - mucosae moist EYES - full EOM, PERRL, no icterus - no evidence of inflammation, injection, or drainage Respiratory - no respiratory distress, equal bilateral expansion Musculoskeletal no gross deformity of long bones or joints - no tenderness, swelling or edema Neurologic - Alert and oriented times four - CN II-XII grossly intact - motor sensory and coordination symmetrically normal Psychiatric - appropriate mood and affect with normal thought content Hematologic - No petechiae or purpura - mucosa appropriate color and sclera not pale - normal nail bed color and refill Integument - no rash or evidence of trauma - normal turgor Diagnostics: [] Therapeutics: [] Impression: [] Plan: [] Definitive disposition and diagnosis as appropriate pending reevaluation and review of above. left lower jaw Pain Score (Numeric/FACES): 10 - Related Data Allergies Allergy/AdvReac Type Severity Reaction Status Date / Time codeine Allergy Itching Verified 12/30/20 15:58 Home Meds: Home Meds traZODone 50 mg PO BEDTIME PRN 04/22/17 [History] Furosemide 40 mg PO BID 09/09/17 [History] OXcarbazepine [Oxcarbazepine] 150 mg PO BID 09/09/17 [History] Levothyroxine Sodium [Synthroid] 75 mcg PO ACBREAKFAST 10/01/17 [History] nadoloL [Corgard] 40 mg PO DAILY 10/01/17 [History] Diphenhyd/Lidocaine/Nystatin [Magic Mouthwash] 5 - 20 ml PO Q4HR PRN 12/13/18 [History] Spironolactone 40 mg PO BID 01/17/19 [History] Lactulose [Chronulac] 10 gm PO BID 30 Days #60 cup 01/18/19 [Rx] Ondansetron [Zofran ODT] 4 mg PO Q6H PRN #30 tab.dis 01/18/19 [Rx] ClonazePAM [KlonoPIN] 1 tab PO DAILY PRN 01/03/20 [History] Insulin Glarg,Human.Rec.Analog [Lantus] 30 units SQ DAILY 01/03/20 [History] Insulin Lispro [HumaLOG] 10 units SQ TIDMEALS 01/03/20 [History] Naproxen [Naprosyn] 500 mg PO Q12HR #20 tab 01/03/20 [Rx] Pantoprazole [ProTONIX] 1 tab PO DAILY 01/03/20 [History] Amoxicillin/Clavulanate K [Augmentin 875-125 MG] 1 tab PO BID 7 Days #14 tablet 12/30/20 [Rx] Acetaminophen/oxyCODONE [Percocet 325-10 MG] 1 tab PO Q4H PRN #16 tab 01/02/21 [Rx] Amoxicillin 500 mg PO QID #28 capsule 01/02/21 [Rx] Past Medical History - Past Health History Medical/Surgical History: Denies Medical/Surgical History HEENT History: Reports: Impaired Vision Cardiovascular History: Reports: Heart Murmur Other Cardiovascular History: Takes diuretics for portal HTN and swelling Respiratory History: Reports: Asthma Gastrointestinal History: Reports: Cholelithiasis, GI Bleed, Hepatitis, Other (See Below) Other Gastrointestinal History: Gastric Ulcer, pancreatitis? 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 Immunologic History: Reports: None Other Immunologic History: Hep-c Oncologic (Cancer) History: Reports: None Dermatologic History: Reports: Urticaria - Infectious Disease History Infectious Disease History: Reports: Hepatitis C - Past Surgical History Head Surgeries/Procedures: Reports: None HEENT Surgical History: Reports: LASIK Cardiovascular Surgical History: Reports: None Respiratory Surgical History: Reports: None GI Surgical History: Reports: Cholecystectomy, EGD Other GI Surgeries/Procedures: esophageal varicies Female Surgical History: Reports: Section, Tubal Ligation Endocrine Surgical History: Reports: None Neurological Surgical History: Reports: Lumbar Spine Musculoskeletal Surgical History: Reports: Other (See Below) Other Musculoskeletal Surgeries/Procedures:: ankle surgery, back surgery Dermatological Surgical History: Reports: None Social & Family History - Family History Family Medical History: No Pertinent Family History - Caffeine Use Caffeine Use: Reports: Coffee Other Caffeine Use: occasional coffee, unsweetened tea - Recreational Drug Use Recreational Drug Use: No - Living Situation & Occupation Occupation: Disabled ED ROS GENERAL - Review of Systems Review Of Systems: Comprehensive ROS is negative, except as noted in HPI. ED EXAM, GENERAL - Physical Exam Exam: See Below Free Text/Narrative:: My physical exam is in the HPI Course - Vital Signs Last Recorded V/S: Last Vital Signs Temp 36.4 C 01/02/21 10:37 Pulse 84 01/02/21 10:37 Resp 18 01/02/21 10:37 BP 114/78 01/02/21 10:37 Pulse Ox 100 01/02/21 10:37 - Orders/Labs/Meds Meds: Medications Discontinued Medications Generic Name Dose Route Start Last Admin Trade Name Freq PRN Reason Stop Dose Admin Ketorolac Tromethamine 30 mg 01/02/21 10:52 Ketorolac 30 Mg/Ml Sdv IM 01/02/21 10:53 ONETIME ONE Departure - Departure Time of Disposition: 11:08 Disposition: Home, Self-Care 01 Condition: Good Clinical Impression: Dental abscess - Discharge Information Prescriptions: Amoxicillin 500 mg PO QID #28 capsule Acetaminophen/oxyCODONE [Percocet 325-10 MG] 1 tab PO Q4H PRN #16 tab PRN Reason: Pain (Severe 7-10) Instructions: Dental Abscess, [id number] Additional Instructions: If the swelling goes under your jaw and crosses the midline of your neck or you have trouble swallowing or voice change you need to be seen again immediately and probably flown or sent emergently to the place with an oral surgeon. You can avoid this by seeing a dentist. There are dentists and [place] who can see people the same day. Please try to get in today. [facility] - [facility] [address] [place] [address] [place] [address] The following information is given to patients seen in the emergency department who are being discharged to home. This information is to outline your options for follow-up care. We provide all patients seen in our emergency department with a follow-up referral. The need for follow-up, as well as the timing and circumstances, are variable depending upon the specifics of your emergency department visit. If you don't have a primary care physician on staff, we will provide you with a referral. We always advise you to contact your personal physician following an emergency department visit to inform them of the circumstance of the visit and for follow-up with them and/or the need for any referrals to a consulting specialist. The emergency department will also refer you to a specialist when appropriate. T his referral assures that you have the opportunity for follow-up care with a specialist. All of these measure are taken in an effort to provide you with optimal care, which includes your follow-up. Under all circumstances we always encourage you to contact your private physician who remains a resource for coordinating your care. When calling for follow-up care, please make the office aware that this follow-up is from your recent emergency room visit. If for any reason you are refused follow-up, please contact the [facility] Emergency Department at and asked to speak to the emergency department charge nurse. Sepsis Event Note (ED) - Evaluation Sepsis Screening Result: No Definite Risk - Focused Exam Vital Signs: Vital Signs Temp Pulse Resp BP Pulse Ox 01/02/21 10:37 36.4 C 84 18 114/78 100
[2021-01-02 11:24] VITALS: BP 120/81; PULSE 79
== END 2021-01-02 11:29 | disposition home or self-care (01) ==
LOC: MW.ED 10:29
DX: K04.7 Periapical abscess without sinus (principal); J45.909 Unspecified asthma, uncomplicated; E11.9 Type 2 diabetes mellitus without complications; E03.9 Hypothyroidism, unspecified; Z88.5 Allergy status to narcotic agent; Z79.4 Long term (current) use of insulin; Z79.899 Other long term (current) drug therapy
CPT/HCPCS: 96372; 99283; J1885

== ENCOUNTER 2021-04-16 01:16 | Emergency (ER) | payer MEDICARE, OTHER, MEDICAID ==
[2021-04-16 01:40] VITALS: BP 129/64; PULSE 64
[2021-04-16] MEDS ORDERED: Sodium Chloride 0.9% 2.5 ML Syringe FLUSH PRN (01:50)
[2021-04-16] MEDS ORDERED: Sodium Chloride 0.9% 10 ML Syringe FLUSH PRN (01:50)
[2021-04-16] MEDS ORDERED: HYDROmorphone 1 MG/ML Syringe IVPUSH ONE ×2 (01:50→04:25)
[2021-04-16] MEDS ORDERED: Lactated Ringers 1,000 ML IV ONE (01:50)
[2021-04-16] MEDS ORDERED: Ondansetron 4 MG/2 ML SDV IVPUSH ONE ×2 (01:50→04:31)
[2021-04-16 02:30] LABS: BLOOD UREA NITROGEN,BUN 11 mg/dL (7.0-18.0); CARBON DIOXIDE,CO2 25.9 mmol/L (21.0-32.0); CHLORIDE,CL 104 mmol/L (98-107); GLUCOSE RANDOM 118 mg/dL (74-106); LIPASE 140 U/L (73-393); POTASSIUM,K 4.1 mmol/L (3.5-5.1); SODIUM,NA 139 mmol/L (136-145)
[2021-04-16] MEDS ORDERED: Iopamidol 755 MG/ML 500 ML Multipack Bottle IVPUSH STA (03:39)
== END 2021-04-16 06:27 | disposition home or self-care (01) ==
LOC: MW.ED 01:16
DX: I85.00 Esophageal varices without bleeding (principal); K73.9 Chronic hepatitis, unspecified; E11.9 Type 2 diabetes mellitus without complications; I10 Essential (primary) hypertension; E03.9 Hypothyroidism, unspecified; R22.9 Localized swelling, mass and lump, unspecified; Z72.0 Tobacco use; Z88.5 Allergy status to narcotic agent; Z79.4 Long term (current) use of insulin; Z79.899 Other long term (current) drug therapy
CPT/HCPCS: 36415; 74177; 80053; 80305; 80307; 81001; 81025; 82947; 83690; 83735; 84100; 85025; 85610; 85730; 96374; 96375; 96376; 99284; J1170; J2405; J7120; Q9967

== ENCOUNTER 2021-08-06 17:22 | Emergency (ER) | payer MEDICARE, OTHER, MEDICAID ==
[2021-08-06] MEDS ORDERED: Ketorolac 60 MG/2 ML SDV IM ONE (17:41)
[2021-08-06] MEDS ORDERED: traMADol 50 MG Tab PO ONE (18:22)
[2021-08-06 21:29] VITALS: BP 124/88; PULSE 78
== END 2021-08-06 19:20 | disposition home or self-care (01) ==
LOC: MW.ED 17:22
DX: S93.402A Sprain of unspecified ligament of left ankle, initial encounter (principal); S80.01XA Contusion of right knee, initial encounter; I10 Essential (primary) hypertension; E11.9 Type 2 diabetes mellitus without complications; E03.9 Hypothyroidism, unspecified; Z79.4 Long term (current) use of insulin; Z79.899 Other long term (current) drug therapy; W01.0XXA Fall on same level from slipping, tripping and stumbling without subsequent striking against object, initial encounter; X50.1XXA Overexertion from prolonged static or awkward postures, initial encounter
CPT/HCPCS: 73562; 73610; 96372; 99283; A9270; J1885

== ENCOUNTER 2022-06-23 22:23 | Emergency (ER) | payer MEDICARE, OTHER ==
[2022-06-23 22:36] VITALS: BP 124/85; PULSE 92
[2022-06-23] MEDS ORDERED: Ibuprofen 600 MG Tab PO ONE (22:50)
== END 2022-06-23 23:02 | disposition home or self-care (01) ==
LOC: MW.ED 22:23
DX: E11.40 Type 2 diabetes mellitus with diabetic neuropathy, unspecified (principal); J45.909 Unspecified asthma, uncomplicated; E03.9 Hypothyroidism, unspecified; Z88.5 Allergy status to narcotic agent; Z79.899 Other long term (current) drug therapy; Z79.4 Long term (current) use of insulin
CPT/HCPCS: 82947; 99284; A9270

== ENCOUNTER 2022-11-28 03:42 | Emergency (ER) | payer MEDICARE, OTHER | END 2022-11-28 03:50 | disposition left against medical advice (07) | LOC: MW.ED 03:42 | DX: Z53.21 Procedure and treatment not carried out due to patient leaving prior to being seen by health care provider (principal) ==

== ENCOUNTER 2023-01-14 01:02 | Emergency (ER) | payer MEDICARE ==
[2023-01-14 01:15] VITALS: BP 142/74; PULSE 106
== END 2023-01-14 03:12 | disposition home or self-care (01) ==
LOC: MW.ED 01:02
DX: S99.912A Unspecified injury of left ankle, initial encounter (principal); E11.9 Type 2 diabetes mellitus without complications; Z88.5 Allergy status to narcotic agent; X58.XXXA Exposure to other specified factors, initial encounter
CPT/HCPCS: 73610-26-LT; 73610-LT; 99282; 99283

== ENCOUNTER 2023-03-07 05:58 | Emergency (ER) | payer MEDICARE ==
[2023-03-07 06:15] VITALS: BP 149/89; PULSE 73
[2023-03-07] MEDS ORDERED: Ondansetron 4 MG/2 ML SDV IVPUSH ONE (06:42)
[2023-03-07 06:56] LABS: BASOPHILS ABSOLUTE AUTO 0.04 K/uL (0.00-0.20); BASOPHILS PERCENT AUTO 1.3 % (0.0-1.0); EOSINOPHILS ABSOLUTE AUTO 0.41 K/uL (0.00-0.45); HEMOGLOBIN 14.2 g/dL (12.0-16.0); IMMATURE GRAN ABSOLUTE AUTO 0.01 K/uL (0.00-0.05); IMMATURE GRAN PERCENT AUTO 0.3 % (0.0-0.4); LYMPHOCYTES ABSOLUTE AUTO 0.72 K/uL (1.00-4.80); LYMPHOCYTES PERCENT AUTO 22.8 % (24.0-44.0); MEAN CORPUSCULAR HEMOGLOBIN 32.9 pg (28.0-32.0); MEAN CORPUSCULAR HGB CONC 34.6 g/dL (32.0-36.0); MEAN CORPUSCULAR VOLUME 95.1 fL (83.0-99.0); MEAN PLATELET VOLUME 11.3 fL (9.4-12.3); MONOCYTES ABSOLUTE AUTO 0.31 K/uL (0.00-0.80); MONOCYTES PERCENT AUTO 9.8 % (0.0-8.0); NEUTROPHILS ABSOLUTE AUTO 1.67 K/uL (1.80-7.70); NEUTROPHILS PERCENT AUTO 52.8 % (41.0-71.0); PLATELET COUNT,PLT 40 K/uL (150-400); RED BLOOD CELL COUNT 4.31 M/uL (4.10-5.30); WHITE BLOOD CELL COUNT,WBC 3.16 K/uL (3.9-11.3)
[2023-03-07 07:19] LABS: CARBON DIOXIDE,CO2 27.2 mmol/L (21.0-32.0); CREATININE 0.8 mg/dL (0.6-1.0); EST CRCL DRUG DOSING (CG) 82.26 mL/min; POTASSIUM,K 3.6 mmol/L (3.5-5.1)
== END 2023-03-07 07:51 | disposition home or self-care (01) ==
LOC: MW.ED 05:58
DX: R20.2 Paresthesia of skin (principal); R20.0 Anesthesia of skin; E83.51 Hypocalcemia; E11.9 Type 2 diabetes mellitus without complications; E03.9 Hypothyroidism, unspecified; Z90.49 Acquired absence of other specified parts of digestive tract; Z79.899 Other long term (current) drug therapy; Z88.5 Allergy status to narcotic agent
CPT/HCPCS: 36415; 80048; 85025; 96374; 99284; J2405

== ENCOUNTER 2023-05-03 14:26 | Emergency (ER) | payer MEDICARE ==
[2023-05-03] MEDS: Pantoprazole 80 MG in Sodium Chloride 0.9% 10 ML IVPUSH ONE (16:37)
[2023-05-03] MEDS: Sodium Chloride 0.9% 1,000 ML IV STA (16:37)
[2023-05-03 16:38] LABS: INR 1.24 (0.86-1.11); PTT,PARTIAL THROMBOPLSTIN TIME 27.9 SEC (23.9-30.7)
[2023-05-03] MEDS: cefTRIAXone 1 GM in Sodium Chloride 0.9% 50 ML IV ONE (16:38)
[2023-05-03 16:43] LABS: BASOPHILS ABSOLUTE AUTO 0.08 K/uL (0.00-0.20); BASOPHILS PERCENT AUTO 1.3 % (0.0-1.0); EOSINOPHILS ABSOLUTE AUTO 0.39 K/uL (0.00-0.45); EOSINOPHILS PERCENT AUTO 6.1 % (0.0-6.0); IMMATURE GRAN ABSOLUTE AUTO 0.02 K/uL (0.00-0.05); IMMATURE GRAN PERCENT AUTO 0.3 % (0.0-0.4); LYMPHOCYTES ABSOLUTE AUTO 1.09 K/uL (1.00-4.80); LYMPHOCYTES PERCENT AUTO 17.1 % (24.0-44.0); MEAN CORPUSCULAR HEMOGLOBIN 32.7 pg (28.0-32.0); MEAN CORPUSCULAR HGB CONC 33.3 g/dL (32.0-36.0); MEAN CORPUSCULAR VOLUME 98.1 fL (83.0-99.0); MEAN PLATELET VOLUME 11.1 fL (9.4-12.3); MONOCYTES ABSOLUTE AUTO 0.52 K/uL (0.00-0.80); MONOCYTES PERCENT AUTO 8.2 % (0.0-8.0); NEUTROPHILS ABSOLUTE AUTO 4.27 K/uL (1.80-7.70); PLATELET COUNT,PLT 90 K/uL (150-400); RED BLOOD CELL COUNT 4.28 M/uL (4.10-5.30); WHITE BLOOD CELL COUNT,WBC 6.37 K/uL (3.9-11.3)
[2023-05-03 16:56] LABS: ALBUMIN 2.7 g/dL (3.4-5.0); CALCIUM 8.4 mg/dL (8.5-10.1); CARBON DIOXIDE,CO2 23.7 mmol/L (21.0-32.0); CREATININE 0.8 mg/dL (0.6-1.0); EST CRCL DRUG DOSING (CG) 85.45 mL/min; POTASSIUM,K 4.8 mmol/L (3.5-5.1)
[2023-05-03] MEDS: Morphine 4 MG/ML Syringe IVPUSH ONE ×2 (17:13→20:50)
[2023-05-03 17:15] LABS: A/G RATIO 0.6 (0.9-1.6); BILIRUBIN TOTAL 3.1 mg/dL (0.2-1.0); PROTEIN TOTAL,TP 7.1 g/dL (6.4-8.2)
[2023-05-03] MEDS: Octreotide 500 MCG in Sodium Chloride 0.9% 495 ML IV SCH (17:32)
[2023-05-03] MEDS: Iopamidol 755 MG/ML 500 ML Multipack Bottle IVPUSH STA (18:47)
[2023-05-04] MEDS: Morphine 4 MG/ML Syringe IVPUSH ONE (00:28)
[2023-05-04 01:40] LABS: BASOPHILS ABSOLUTE AUTO 0.05 K/uL (0.00-0.20); BASOPHILS PERCENT AUTO 0.7 % (0.0-1.0); EOSINOPHILS ABSOLUTE AUTO 0.48 K/uL (0.00-0.45); EOSINOPHILS PERCENT AUTO 6.6 % (0.0-6.0); HEMATOCRIT 32.8 % (37.0-47.0); HEMOGLOBIN 11.4 g/dL (12.0-16.0); IMMATURE GRAN ABSOLUTE AUTO 0.01 K/uL (0.00-0.05); IMMATURE GRAN PERCENT AUTO 0.1 % (0.0-0.4); LYMPHOCYTES ABSOLUTE AUTO 1.72 K/uL (1.00-4.80); LYMPHOCYTES PERCENT AUTO 23.5 % (24.0-44.0); MEAN CORPUSCULAR HEMOGLOBIN 32.8 pg (28.0-32.0); MEAN CORPUSCULAR HGB CONC 34.8 g/dL (32.0-36.0); MEAN CORPUSCULAR VOLUME 94.3 fL (83.0-99.0); MONOCYTES ABSOLUTE AUTO 0.78 K/uL (0.00-0.80); MONOCYTES PERCENT AUTO 10.7 % (0.0-8.0); NEUTROPHILS ABSOLUTE AUTO 4.27 K/uL (1.80-7.70); NEUTROPHILS PERCENT AUTO 58.4 % (41.0-71.0); PLATELET COUNT,PLT 73 K/uL (150-400); RED BLOOD CELL COUNT 3.48 M/uL (4.10-5.30); WHITE BLOOD CELL COUNT,WBC 7.31 K/uL (3.9-11.3)
[2023-05-04] MEDS: HYDROmorphone 1 MG/ML Syringe IVPUSH ONE (02:19)
[2023-05-04 07:24] LABS: HEMATOCRIT 32.4 % (37.0-47.0)
[2023-05-04] MEDS: Ondansetron 4 MG/2 ML SDV IVPUSH ONE (07:53)
[2023-05-04] MEDS: Morphine 4 MG/ML Syringe IVPUSH STA (07:53)
[2023-05-04 10:46] VITALS: BP 108/73; PULSE 89
== END 2023-05-04 11:48 ==
LOC: MW.ED 14:26
DX: K92.2 Gastrointestinal hemorrhage, unspecified (principal); I85.00 Esophageal varices without bleeding; J45.909 Unspecified asthma, uncomplicated; E11.9 Type 2 diabetes mellitus without complications; F17.210 Nicotine dependence, cigarettes, uncomplicated; Z88.8 Allergy status to other drugs, medicaments and biological substances; Z79.899 Other long term (current) drug therapy; Z90.49 Acquired absence of other specified parts of digestive tract
CPT/HCPCS: 36415; 36430; 71045; 74174; 80053; 83690; 84484; 84703; 85014; 85018; 85025; 85610; 85730; 86850; 86900; 86901; 86920; 86921; 86922; 93005; 96365; 96366; 96367; 96375; 96376; 99285; C9113; J0696; J1170; J2270; J2354; J2405; J3490; J7030; J7040; P9016; Q9967; 93010

== ENCOUNTER 2023-07-12 15:14 | Emergency (ER) | payer MEDICARE ==
[2023-07-12] MEDS: Lidocaine 4% 1 each Patch TOP STA (18:47)
[2023-07-12 18:49] VITALS: BP 126/76; PULSE 76
== END 2023-07-12 18:53 | disposition home or self-care (01) ==
LOC: MW.ED 15:14
DX: M25.511 Pain in right shoulder (principal); K21.9 Gastro-esophageal reflux disease without esophagitis; E11.9 Type 2 diabetes mellitus without complications; Z75.8 Other problems related to medical facilities and other health care; Z88.5 Allergy status to narcotic agent; Z79.899 Other long term (current) drug therapy; Z90.49 Acquired absence of other specified parts of digestive tract
CPT/HCPCS: 73030; 99283; A9270

== ENCOUNTER 2023-08-12 06:13 | Emergency (ER) | payer MEDICARE ==
[2023-08-12] MEDS: Sodium Chloride 0.9% 1,000 ML IV STA (06:54)
[2023-08-12 06:55] LABS: APPEARANCE,URINE CLEAR; BILIRUBIN,URINE NEGATIVE (NEGATIVE); COLOR,URINE YELLOW; GLUCOSE,URINE >=1000 mg/dL (NEGATIVE); KETONES,URINE NEGATIVE (NEGATIVE); LEUKOCYTE ESTERASE,URINE TRACE (NEGATIVE); NITRITE,URINE NEGATIVE (NEGATIVE); OCCULT BLOOD,URINE SMALL (NEGATIVE); PROTEIN,URINE NEGATIVE (NEGATIVE)
[2023-08-12] MEDS: Ketorolac 30 MG/ML SDV IVPUSH ONE (06:55)
[2023-08-12] MEDS: Sodium Chloride 0.9% 10 ML Syringe FLUSH PRN (06:55)
[2023-08-12] MEDS: Sodium Chloride 0.9% 2.5 ML Syringe FLUSH PRN (06:55)
[2023-08-12 06:56] LABS: BASE EXCESS VENOUS 1.8 (-2.0-3.0); PH,VENOUS 7.44 (7.31-7.41)
[2023-08-12 07:02] LABS: BASOPHILS ABSOLUTE AUTO 0.02 K/uL (0.00-0.20); BASOPHILS PERCENT AUTO 0.7 % (0.0-1.0); EOSINOPHILS ABSOLUTE AUTO 0.04 K/uL (0.00-0.45); EOSINOPHILS PERCENT AUTO 1.3 % (0.0-6.0); HEMATOCRIT 37.3 % (37.0-47.0); HEMOGLOBIN 13.3 g/dL (12.0-16.0); IMMATURE GRAN ABSOLUTE AUTO 0.03 K/uL (0.00-0.05); LYMPHOCYTES ABSOLUTE AUTO 0.31 K/uL (1.00-4.80); LYMPHOCYTES PERCENT AUTO 10.3 % (24.0-44.0); MEAN CORPUSCULAR HEMOGLOBIN 30.9 pg (28.0-32.0); MEAN CORPUSCULAR HGB CONC 35.7 g/dL (32.0-36.0); MEAN CORPUSCULAR VOLUME 86.7 fL (83.0-99.0); MEAN PLATELET VOLUME 10.3 fL (9.4-12.3); MONOCYTES ABSOLUTE AUTO 0.14 K/uL (0.00-0.80); MONOCYTES PERCENT AUTO 4.7 % (0.0-8.0); NEUTROPHILS ABSOLUTE AUTO 2.46 K/uL (1.80-7.70); PLATELET COUNT,PLT 65 K/uL (150-400)
[2023-08-12 07:05] LABS: RBC,URINE 0-1 (0-2/HPF)
[2023-08-12 07:06] LABS: BACTERIA,URINE FEW (NEGATIVE); EPITHELIAL CELLS,URINE FEW (NONE-FEW)
[2023-08-12 07:28] LABS: A/G RATIO 0.5 (0.9-1.6); ALBUMIN 2.7 g/dL (3.4-5.0); CARBON DIOXIDE,CO2 25.9 mmol/L (21.0-32.0); CREATININE 0.9 mg/dL (0.6-1.0); EST CRCL DRUG DOSING (CG) 73.12 mL/min; PROTEIN TOTAL,TP 7.7 g/dL (6.4-8.2)
[2023-08-12 07:34] LABS: POTASSIUM,K 4.4 mmol/L (3.5-5.1)
[2023-08-12] MEDS ORDERED: 50% Dextrose in Water 50 ML Syringe IVPUSH PRN (07:38)
[2023-08-12] MEDS ORDERED: Glucagon,Human Recombinant 1 MG Vial IM PRN (07:38)
[2023-08-12] MEDS: Insulin Regular, Human 100 Units/ML 10 ML Vial IVPUSH ONE (07:51)
[2023-08-12 09:13] LABS: HEMOGLOBIN A1C 8.5 %
[2023-08-12 10:48] VITALS: BP 128/82; PULSE 70
== END 2023-08-12 11:07 | disposition home or self-care (01) ==
LOC: MW.ED 06:13
DX: I10 Essential (primary) hypertension (principal); E11.65 Type 2 diabetes mellitus with hyperglycemia; N39.0 Urinary tract infection, site not specified; J45.909 Unspecified asthma, uncomplicated; K21.9 Gastro-esophageal reflux disease without esophagitis; Z88.5 Allergy status to narcotic agent; Z79.899 Other long term (current) drug therapy; Z90.49 Acquired absence of other specified parts of digestive tract; Z75.8 Other problems related to medical facilities and other health care
CPT/HCPCS: 36415; 80053; 81001; 82803; 82947; 83036; 84484; 85025; 96361; 96374; 99284; J1885; J3490; J7030; 93005; 93010; J1815-GY

== ENCOUNTER 2023-08-18 11:55 | Emergency (ER) | payer MEDICARE ==
[2023-08-18 12:12] VITALS: BP 148/83; PULSE 96
[2023-08-18] MEDS: traMADol 50 MG Tab PO STA (12:54)
== END 2023-08-18 13:17 | disposition home or self-care (01) ==
LOC: MW.ED 11:55
DX: M79.601 Pain in right arm (principal); E11.9 Type 2 diabetes mellitus without complications; K21.9 Gastro-esophageal reflux disease without esophagitis; Z75.8 Other problems related to medical facilities and other health care; Z88.5 Allergy status to narcotic agent; Z79.899 Other long term (current) drug therapy; Z86.19 Personal history of other infectious and parasitic diseases; Z90.49 Acquired absence of other specified parts of digestive tract
CPT/HCPCS: 82947; 99284; A9270

== ENCOUNTER 2023-09-14 09:43 | Emergency (ER) | payer MEDICARE ==
[2023-09-14] MEDS: Sodium Chloride 0.9% 1,000 ML IV ONE (10:46)
[2023-09-14] MEDS: Ondansetron 4 MG/2 ML SDV IVPUSH ONE (10:46)
[2023-09-14] MEDS: Morphine 4 MG/ML Syringe IVPUSH ONE (10:46)
[2023-09-14] MEDS: Iopamidol 755 MG/ML 500 ML Multipack Bottle IVPUSH STA (11:58)
[2023-09-14 12:48] LABS: APPEARANCE,URINE CLEAR; COLOR,URINE YELLOW
[2023-09-14 12:49] LABS: BILIRUBIN,URINE NEGATIVE (NEGATIVE); GLUCOSE,URINE >=1000 mg/dL (NEGATIVE); KETONES,URINE NEGATIVE (NEGATIVE); PROTEIN,URINE NEGATIVE (NEGATIVE)
[2023-09-14 12:50] LABS: BACTERIA,URINE NOT SEEN (NEGATIVE); EPITHELIAL CELLS,URINE RARE (NONE-FEW); LEUKOCYTE ESTERASE,URINE NEGATIVE (NEGATIVE); NITRITE,URINE NEGATIVE (NEGATIVE); OCCULT BLOOD,URINE TRACE-INTACT (NEGATIVE); RBC,URINE 0-1 (0-2/HPF); UROBILINOGEN,URINE 0.2 EU/dL (<2.0); WBC,URINE 0-1 (0-5/HPF)
[2023-09-14] MEDS ORDERED: 50% Dextrose in Water 50 ML Syringe IVPUSH PRN (13:53)
[2023-09-14] MEDS ORDERED: Glucagon,Human Recombinant 1 MG Vial IM PRN (13:53)
[2023-09-14] MEDS: Insulin Regular, Human 100 Units/ML 10 ML Vial SUBCUT ONE (14:01)
[2023-09-14 14:32] VITALS: BP 128/88; PULSE 96
[2023-09-14 15:00] LABS: BASOPHILS ABSOLUTE AUTO 0.02 K/uL (0.00-0.20); BASOPHILS PERCENT AUTO 0.6 % (0.0-1.0); EOSINOPHILS ABSOLUTE AUTO 0.16 K/uL (0.00-0.45); EOSINOPHILS PERCENT AUTO 5.1 % (0.0-6.0); HEMATOCRIT 37.3 % (37.0-47.0); HEMOGLOBIN 12.4 g/dL (12.0-16.0); IMMATURE GRAN ABSOLUTE AUTO 0.01 K/uL (0.00-0.05); IMMATURE GRAN PERCENT AUTO 0.3 % (0.0-0.4); LYMPHOCYTES ABSOLUTE AUTO 0.54 K/uL (1.00-4.80); LYMPHOCYTES PERCENT AUTO 17.3 % (24.0-44.0); MEAN CORPUSCULAR HEMOGLOBIN 29.8 pg (28.0-32.0); MEAN CORPUSCULAR HGB CONC 33.2 g/dL (32.0-36.0); MEAN CORPUSCULAR VOLUME 89.7 fL (83.0-99.0); MEAN PLATELET VOLUME 10.4 fL (9.4-12.3); MONOCYTES ABSOLUTE AUTO 0.27 K/uL (0.00-0.80); MONOCYTES PERCENT AUTO 8.6 % (0.0-8.0); NEUTROPHILS ABSOLUTE AUTO 2.13 K/uL (1.80-7.70); NEUTROPHILS PERCENT AUTO 68.1 % (41.0-71.0); PLATELET COUNT,PLT 55 K/uL (150-400); RED BLOOD CELL COUNT 4.16 M/uL (4.10-5.30); WHITE BLOOD CELL COUNT,WBC 3.13 K/uL (3.9-11.3)
[2023-09-14 15:28] LABS: A/G RATIO 0.6 (0.9-1.6); ALBUMIN 2.6 g/dL (3.4-5.0); CARBON DIOXIDE,CO2 23.6 mmol/L (21.0-32.0); EST CRCL DRUG DOSING (CG) 65.81 mL/min; POTASSIUM,K 3.6 mmol/L (3.5-5.1); PROTEIN TOTAL,TP 7.2 g/dL (6.4-8.2)
== END 2023-09-14 14:21 | disposition home or self-care (01) ==
LOC: MW.ED 09:43
DX: K52.9 Noninfective gastroenteritis and colitis, unspecified (principal); E11.65 Type 2 diabetes mellitus with hyperglycemia; K21.9 Gastro-esophageal reflux disease without esophagitis; Z75.8 Other problems related to medical facilities and other health care; Z88.5 Allergy status to narcotic agent; Z79.899 Other long term (current) drug therapy; Z90.49 Acquired absence of other specified parts of digestive tract
CPT/HCPCS: 36415; 74177; 80053; 81001; 83690; 84484; 85025; 93005; 96361; 96374; 96375; 99284; J2270; J2405; J7030; Q9967; 93010; J1815-GY

== ENCOUNTER 2023-10-13 09:13 | Emergency (ER) | payer SELFPAY ==
[2023-10-13 09:42] LABS: BASOPHILS ABSOLUTE AUTO 0.03 K/uL (0.00-0.20); BASOPHILS PERCENT AUTO 0.7 % (0.0-1.0); EOSINOPHILS ABSOLUTE AUTO 0.24 K/uL (0.00-0.45); EOSINOPHILS PERCENT AUTO 5.6 % (0.0-6.0); HEMATOCRIT 32.7 % (37.0-47.0); HEMOGLOBIN 10.8 g/dL (12.0-16.0); IMMATURE GRAN ABSOLUTE AUTO 0.01 K/uL (0.00-0.05); IMMATURE GRAN PERCENT AUTO 0.2 % (0.0-0.4); LYMPHOCYTES ABSOLUTE AUTO 0.93 K/uL (1.00-4.80); LYMPHOCYTES PERCENT AUTO 21.6 % (24.0-44.0); MEAN CORPUSCULAR HEMOGLOBIN 29.6 pg (28.0-32.0); MEAN CORPUSCULAR VOLUME 89.6 fL (83.0-99.0); MEAN PLATELET VOLUME 10.2 fL (9.4-12.3); MONOCYTES ABSOLUTE AUTO 0.34 K/uL (0.00-0.80); MONOCYTES PERCENT AUTO 7.9 % (0.0-8.0); NEUTROPHILS ABSOLUTE AUTO 2.76 K/uL (1.80-7.70); PLATELET COUNT,PLT 91 K/uL (150-400); RED BLOOD CELL COUNT 3.65 M/uL (4.10-5.30); WHITE BLOOD CELL COUNT,WBC 4.31 K/uL (3.9-11.3)
[2023-10-13 09:53] LABS: INR 1.25 (0.86-1.11)
[2023-10-13 10:07] LABS: A/G RATIO 0.6 (0.9-1.6); ALBUMIN 2.7 g/dL (3.4-5.0); BILIRUBIN TOTAL 2.2 mg/dL (0.2-1.0); CALCIUM 8.4 mg/dL (8.5-10.1); CARBON DIOXIDE,CO2 24.7 mmol/L (21.0-32.0); CREATININE 0.9 mg/dL (0.6-1.0); EST CRCL DRUG DOSING (CG) 75.15 mL/min
[2023-10-13 10:14] LABS: APPEARANCE,URINE CLOUDY; COLOR,URINE YELLOW; GLUCOSE,URINE NEGATIVE (NEGATIVE); KETONES,URINE NEGATIVE (NEGATIVE); LEUKOCYTE ESTERASE,URINE MODERATE (NEGATIVE); NITRITE,URINE NEGATIVE (NEGATIVE); OCCULT BLOOD,URINE LARGE (NEGATIVE); PROTEIN,URINE TRACE mg/dL (NEGATIVE); UROBILINOGEN,URINE 0.2 EU/dL (<2.0)
[2023-10-13] MEDS: Iopamidol 755 MG/ML 500 ML Multipack Bottle IVPUSH STA (10:45)
[2023-10-13] MEDS: droPERidol 5 MG/2 ML SDV IVPUSH ONE (10:50)
[2023-10-13] MEDS: Sodium Chloride 0.9% 2.5 ML Syringe FLUSH PRN (10:50)
[2023-10-13] MEDS: Sodium Chloride 0.9% 10 ML Syringe FLUSH PRN (10:50)
[2023-10-13 11:01] LABS: BILIRUBIN,URINE SMALL (NEGATIVE)
[2023-10-13 11:08] LABS: BACTERIA,URINE 1+ (NEGATIVE); EPITHELIAL CELLS,URINE RARE (NONE-FEW); RBC,URINE 0-2 (0-2/HPF)
[2023-10-13] MEDS ORDERED: cefTRIAXone 1 GM Vial IM ONE (11:32)
[2023-10-13] MEDS: Pantoprazole 80 MG in Sodium Chloride 0.9% 10 ML IVPUSH ONE (11:46)
[2023-10-13] MEDS: cefTRIAXone 1 GM in Sodium Chloride 0.9% 50 ML IV STA (11:48)
[2023-10-13] MEDS: Sodium Chloride 0.9% 1,000 ML IV STA ×2 (11:48)
[2023-10-13] MEDS: Octreotide 500 MCG in Sodium Chloride 0.9% 495 ML IV SCH (11:56)
[2023-10-13 13:04] LABS: BASOPHILS ABSOLUTE AUTO 0.02 K/uL (0.00-0.20); BASOPHILS PERCENT AUTO 0.7 % (0.0-1.0); EOSINOPHILS PERCENT AUTO 7.1 % (0.0-6.0); HEMATOCRIT 27.9 % (37.0-47.0); HEMOGLOBIN 9.3 g/dL (12.0-16.0); IMMATURE GRAN ABSOLUTE AUTO 0.01 K/uL (0.00-0.05); IMMATURE GRAN PERCENT AUTO 0.4 % (0.0-0.4); LYMPHOCYTES PERCENT AUTO 28.6 % (24.0-44.0); MEAN CORPUSCULAR HEMOGLOBIN 30.2 pg (28.0-32.0); MEAN CORPUSCULAR HGB CONC 33.3 g/dL (32.0-36.0); MEAN CORPUSCULAR VOLUME 90.6 fL (83.0-99.0); MEAN PLATELET VOLUME 9.9 fL (9.4-12.3); MONOCYTES ABSOLUTE AUTO 0.29 K/uL (0.00-0.80); MONOCYTES PERCENT AUTO 10.4 % (0.0-8.0); NEUTROPHILS ABSOLUTE AUTO 1.48 K/uL (1.80-7.70); NEUTROPHILS PERCENT AUTO 52.8 % (41.0-71.0); PLATELET COUNT,PLT 61 K/uL (150-400); RED BLOOD CELL COUNT 3.08 M/uL (4.10-5.30)
[2023-10-13 14:19] VITALS: BP 109/82; PULSE 85
== END 2023-10-13 14:30 ==
LOC: MW.ED 09:13
DX: K92.1 Melena (principal); N83.8 Other noninflammatory disorders of ovary, fallopian tube and broad ligament; J45.909 Unspecified asthma, uncomplicated; E11.9 Type 2 diabetes mellitus without complications; Z88.8 Allergy status to other drugs, medicaments and biological substances; Z75.8 Other problems related to medical facilities and other health care; Z79.4 Long term (current) use of insulin; Z79.899 Other long term (current) drug therapy; Z90.49 Acquired absence of other specified parts of digestive tract
CPT/HCPCS: 36415; 36430; 74177; 80053; 81001; 81025; 85025; 85610; 86850; 86900; 86901; 86920; 86921; 86922; 87045; 87046; 87324; 87449; 87899; 96365; 96366; 96367; 96375; 99285; J0696; J1790; J2354; J2470; J3490; J7030; J7040; P9016; Q9967; 99284

== ENCOUNTER 2023-11-13 03:25 | Emergency (ER) | payer MEDICARE ==
[2023-11-13] MEDS: Sodium Chloride 0.9% 1,000 ML IV STA (03:39)
[2023-11-13] MEDS: Ketorolac 30 MG/ML SDV IVPUSH ONE (03:41)
[2023-11-13 03:43] LABS: BASE EXCESS VENOUS -1.3 (-2.0-3.0); PH,VENOUS 7.39 (7.31-7.41)
[2023-11-13 03:44] LABS: BASOPHILS ABSOLUTE AUTO 0.04 K/uL (0.00-0.20); BASOPHILS PERCENT AUTO 0.8 % (0.0-1.0); EOSINOPHILS ABSOLUTE AUTO 0.21 K/uL (0.00-0.45); EOSINOPHILS PERCENT AUTO 4.1 % (0.0-6.0); HEMATOCRIT 31.5 % (37.0-47.0); IMMATURE GRAN ABSOLUTE AUTO 0.03 K/uL (0.00-0.05); IMMATURE GRAN PERCENT AUTO 0.6 % (0.0-0.4); LYMPHOCYTES ABSOLUTE AUTO 1.19 K/uL (1.00-4.80); LYMPHOCYTES PERCENT AUTO 23.1 % (24.0-44.0); MEAN CORPUSCULAR HEMOGLOBIN 26.5 pg (28.0-32.0); MEAN CORPUSCULAR HGB CONC 31.7 g/dL (32.0-36.0); MEAN CORPUSCULAR VOLUME 83.6 fL (83.0-99.0); MONOCYTES PERCENT AUTO 9.7 % (0.0-8.0); NEUTROPHILS ABSOLUTE AUTO 3.19 K/uL (1.80-7.70); NEUTROPHILS PERCENT AUTO 61.7 % (41.0-71.0); PLATELET COUNT,PLT 57 K/uL (150-400); RED BLOOD CELL COUNT 3.77 M/uL (4.10-5.30); WHITE BLOOD CELL COUNT,WBC 5.16 K/uL (3.9-11.3)
[2023-11-13 04:06] LABS: A/G RATIO 0.6 (0.9-1.6); ALBUMIN 2.8 g/dL (3.4-5.0); BILIRUBIN TOTAL 2.6 mg/dL (0.2-1.0); CALCIUM 7.7 mg/dL (8.5-10.1); CARBON DIOXIDE,CO2 22.4 mmol/L (21.0-32.0); CREATININE 0.9 mg/dL (0.6-1.0); EST CRCL DRUG DOSING (CG) 75.15 mL/min; POTASSIUM,K 3.5 mmol/L (3.5-5.1); PROTEIN TOTAL,TP 7.3 g/dL (6.4-8.2)
[2023-11-13 04:44] VITALS: BP 126/77; PULSE 105
== END 2023-11-13 04:44 | disposition home or self-care (01) ==
LOC: MW.ED 03:25
DX: M25.562 Pain in left knee (principal); F10.929 Alcohol use, unspecified with intoxication, unspecified; Z75.8 Other problems related to medical facilities and other health care; J45.909 Unspecified asthma, uncomplicated; E11.9 Type 2 diabetes mellitus without complications; Z90.49 Acquired absence of other specified parts of digestive tract; Z79.899 Other long term (current) drug therapy; Z79.84 Long term (current) use of oral hypoglycemic drugs; Z88.5 Allergy status to narcotic agent
CPT/HCPCS: 36415; 73562; 80053; 82803; 85025; 96374; 99284; J1885; J7030

== ENCOUNTER 2023-12-30 11:53 | Emergency (ER) | payer MEDICAID, MEDICARE ==
[2023-12-30] MEDS: Sodium Chloride 0.9% 1,000 ML IV ONE (12:37)
[2023-12-30] MEDS: droPERidol 5 MG/2 ML SDV IVPUSH ONE (12:37)
[2023-12-30 12:38] LABS: HEMATOCRIT 25.5 % (37.0-47.0); HEMOGLOBIN 7.9 g/dL (12.0-16.0); MEAN CORPUSCULAR HEMOGLOBIN 23.6 pg (28.0-32.0); MEAN CORPUSCULAR VOLUME 76.1 fL (83.0-99.0); PLATELET COUNT,PLT 43 K/uL (150-400); RED BLOOD CELL COUNT 3.35 M/uL (4.10-5.30); WHITE BLOOD CELL COUNT,WBC 3.09 K/uL (3.9-11.3)
[2023-12-30 13:00] LABS: A/G RATIO 0.5 (0.9-1.6); ALBUMIN 2.1 g/dL (3.4-5.0); BILIRUBIN TOTAL 2.1 mg/dL (0.2-1.0); CALCIUM 7.6 mg/dL (8.5-10.1); CARBON DIOXIDE,CO2 28.7 mmol/L (21.0-32.0); EST CRCL DRUG DOSING (CG) 65.11 mL/min; POTASSIUM,K 3.5 mmol/L (3.5-5.1); PROTEIN TOTAL,TP 6.7 g/dL (6.4-8.2)
[2023-12-30] MEDS: Alum Hydrox/Mag Hydrox/Simeth 15 ML, Lidocaine 2% 5 ML PO ONE (13:19)
[2023-12-30] MEDS: Morphine 4 MG/ML Syringe IVPUSH ONE (13:19)
[2023-12-30] MEDS: Ondansetron 4 MG/2 ML SDV IVPUSH ONE (13:19)
[2023-12-30 13:22] LABS: BASOPHILS ABSOLUTE MAN 0.03 K/uL (0.00-0.20); BASOPHILS PERCENT MAN 1 % (0-1); EOSINOPHILS ABSOLUTE MAN 0.09 K/uL (0.00-0.45); EOSINOPHILS PERCENT MAN 3 % (0-6); LYMPHOCYTES ABSOLUTE MAN 0.68 K/uL (1.00-4.80); LYMPHOCYTES PERCENT MAN 22 % (24-44); MONOCYTES ABSOLUTE MAN 0.59 K/uL (0.00-0.80); MONOCYTES PERCENT MAN 19 % (0-8); SEG NEUTROPHILS PERCENT MAN 55 % (41-71)
[2023-12-30 13:23] LABS: ANISOCYTOSIS 2+ MODERATE; HYPOCHROMASIA 1+ SLIGHT; MICROCYTOSIS 1+ SLIGHT; TARGET CELLS 1+ SLIGHT
[2023-12-30 13:31] LABS: INR 1.44 (0.86-1.11); PTT,PARTIAL THROMBOPLSTIN TIME 30.2 SEC (23.9-30.7)
[2023-12-30] MEDS: Iopamidol 755 MG/ML 500 ML Multipack Bottle IVPUSH STA (13:42)
[2023-12-30 13:43] VITALS: PULSE 68
[2023-12-30 14:07] LABS: COLOR,URINE YELLOW; GLUCOSE,URINE 500 mg/dL (NEGATIVE); KETONES,URINE TRACE mg/dL (NEGATIVE); LEUKOCYTE ESTERASE,URINE TRACE (NEGATIVE); NITRITE,URINE POSITIVE (NEGATIVE); OCCULT BLOOD,URINE NEGATIVE (NEGATIVE); PROTEIN,URINE TRACE mg/dL (NEGATIVE)
[2023-12-30 14:10] LABS: APPEARANCE,URINE HAZY; BILIRUBIN,URINE MODERATE (NEGATIVE)
[2023-12-30 14:22] LABS: BACTERIA,URINE FEW (NEGATIVE); EPITHELIAL CELLS,URINE MODERATE (NONE-FEW); MUCUS,URINE LIGHT (NONE-MOD); RBC,URINE 0-2 (0-2/HPF)
[2023-12-30 17:24] VITALS: BP 92/60
== END 2023-12-30 15:05 | disposition home or self-care (01) ==
LOC: MW.ED 11:53
DX: N39.0 Urinary tract infection, site not specified (principal); R10.84 Generalized abdominal pain; R18.8 Other ascites; E11.9 Type 2 diabetes mellitus without complications; Z79.899 Other long term (current) drug therapy; Z75.8 Other problems related to medical facilities and other health care; Z88.5 Allergy status to narcotic agent
CPT/HCPCS: 36415; 74177; 80053; 81001; 83690; 83735; 85025; 85610; 85730; 87086; 96361; 96374; 96375; 99284; A9270; J1790; J2270; J2405; J7030; Q9967

== ENCOUNTER 2024-02-28 06:26 | Emergency (ER) | payer MEDICAID, MEDICARE ==
[2024-02-28] MEDS: Sodium Chloride 0.9% 1,000 ML IV ONE (06:40)
[2024-02-28] MEDS: Lactated Ringers 1,000 ML IV ONE ×2 (06:42→08:08)
[2024-02-28 06:49] LABS: BASE EXCESS VENOUS -22.1 (-2.0-3.0); PH,VENOUS 6.97 (7.31-7.41)
[2024-02-28] MEDS: Norepinephrine Bit/D5W Premix 250 ML IV SCH (06:53)
[2024-02-28] MEDS: Etomidate 2 MG/ML 20 ML SDV IVPUSH ONE (06:57)
[2024-02-28] MEDS: Rocuronium 100 MG/10 ML MDV IVPUSH ONE (06:58)
[2024-02-28] MEDS: Norepinephrine Bit/D5W Premix 250 ML ONE (06:59)
[2024-02-28 07:28] LABS: A/G RATIO 0.5 (0.9-1.6); ALBUMIN 1.4 g/dL (3.4-5.0); BILIRUBIN TOTAL 2.5 mg/dL (0.2-1.0); CALCIUM 7.6 mg/dL (8.5-10.1); CARBON DIOXIDE,CO2 9.2 mmol/L (21.0-32.0); CREATININE 1.8 mg/dL (0.6-1.0); EST CRCL DRUG DOSING (CG) 27.75 mL/min; POTASSIUM,K 4.4 mmol/L (3.5-5.1); PROTEIN TOTAL,TP 4.4 g/dL (6.4-8.2)
[2024-02-28] MEDS: Sodium Bicarbonate 8.4% 50 MEQ/50 ML Syringe IVPUSH ONE (07:28)
[2024-02-28 07:31] LABS: BASOPHILS ABSOLUTE AUTO 0.01 K/uL (0.00-0.20); BASOPHILS PERCENT AUTO 0.1 % (0.0-1.0); EOSINOPHILS ABSOLUTE AUTO 0.02 K/uL (0.00-0.45); EOSINOPHILS PERCENT AUTO 0.1 % (0.0-6.0); HEMATOCRIT 10.7 % (37.0-47.0); IMMATURE GRAN ABSOLUTE AUTO 0.38 K/uL (0.00-0.05); IMMATURE GRAN PERCENT AUTO 2.5 % (0.0-0.4); LYMPHOCYTES ABSOLUTE AUTO 1.08 K/uL (1.00-4.80); LYMPHOCYTES PERCENT AUTO 7.2 % (24.0-44.0); MEAN CORPUSCULAR HEMOGLOBIN 22.5 pg (28.0-32.0); MEAN CORPUSCULAR HGB CONC 25.2 g/dL (32.0-36.0); MEAN CORPUSCULAR VOLUME 89.2 fL (83.0-99.0); MONOCYTES ABSOLUTE AUTO 1.04 K/uL (0.00-0.80); NEUTROPHILS ABSOLUTE AUTO 12.43 K/uL (1.80-7.70); NEUTROPHILS PERCENT AUTO 83.1 % (41.0-71.0); NRBC ABSOLUTE 0.06 K/uL (0.00-0.02); NRBC PERCENT 0.4 /100WBC (0.0-0.2); PLATELET COUNT,PLT 68 K/uL (150-400); WHITE BLOOD CELL COUNT,WBC 14.96 K/uL (3.9-11.3)
[2024-02-28] MEDS: fentaNYL/Normal Saline 2,500 MCG in Premix Bag 1 BAG IV PRN (07:34)
[2024-02-28 07:36] LABS: HEMOGLOBIN 2.7 g/dL (12.0-16.0)
[2024-02-28 07:44] LABS: APPEARANCE,URINE CLEAR; BILIRUBIN,URINE NEGATIVE (NEGATIVE); COLOR,URINE YELLOW; GLUCOSE,URINE NEGATIVE (NEGATIVE); KETONES,URINE TRACE mg/dL (NEGATIVE); LEUKOCYTE ESTERASE,URINE NEGATIVE (NEGATIVE); NITRITE,URINE NEGATIVE (NEGATIVE); OCCULT BLOOD,URINE TRACE-INTACT (NEGATIVE); PROTEIN,URINE NEGATIVE (NEGATIVE)
[2024-02-28] MEDS: cefTRIAXone 1 GM in Sodium Chloride 0.9% 50 ML IV ONE (07:52)
[2024-02-28] MEDS: Pantoprazole 80 MG in Sodium Chloride 0.9% 10 ML IVPUSH ONE (07:55)
[2024-02-28 08:00] LABS: BACTERIA,URINE FEW (NEGATIVE); EPITHELIAL CELLS,URINE FEW (NONE-FEW); HYALINE CASTS,URINE 0-2 (0-2/LPF); RBC,URINE 0-2 (0-2/HPF)
[2024-02-28] MEDS: Albumin 5% 250 ML IV SCH (08:07)
[2024-02-28 08:08] LABS: LACTIC ACID 24.7 mmol/L (0.4-2.0)
[2024-02-28 08:09] LABS: BICARBONATE,ARTERIAL 13 mEq/L (22-26); PCO2 ARTERIAL 34 mmHG (35-45); PO2 ARTERIAL 163 mmHG (80-105)
[2024-02-28] MEDS: Vasopressin 20 UNITS in Sodium Chloride 0.9% 50 ML IV SCH (08:30)
[2024-02-28] MEDS: Octreotide 500 MCG in Sodium Chloride 0.9% 250 ML IV SCH (08:32)
[2024-02-28] MEDS: Iopamidol 755 MG/ML 500 ML Multipack Bottle IVPUSH STA (10:21)
[2024-02-28 10:57] VITALS: BP 121/63; PULSE 133
== END 2024-02-28 11:11 ==
LOC: MW.ED 06:26
DX: K92.0 Hematemesis (principal); R57.8 Other shock; E11.9 Type 2 diabetes mellitus without complications; Z90.49 Acquired absence of other specified parts of digestive tract; Z79.899 Other long term (current) drug therapy; Z88.5 Allergy status to narcotic agent
CPT/HCPCS: 31500; 36415; 36430; 36556; 36600; 51702; 71045; 74174; 80053; 80307; 81001; 82803; 82947; 83605; 83880; 84484; 85025; 86850; 86900; 86901; 86920; 86921; 86922; 87040; 93005; 96365; 96366; 96368; 96375; 99291; 99292; J0696; J2354; J2470; J3490; J7030; J7050; J7120; P9016; P9045; Q9967; 93010; 99285